=== PATIENT | male | born 1940 | race Caucasian/White ===

== ENCOUNTER 2017-02-07 12:06 | Emergency (ER) | payer MEDICARE, MEDICAID ==
[~2017-02-07] VITALS: Ht 177.8 cm; Wt 74.8 kg
[~2017-02-07 12:06] MED LIST: ARICEPT10 MG ORAL; ARICEPT10 MG PO; ASPIRIN81 M1 PO; ATIVAN0.5 MG PO; ATROVENT INH S2.5 ML HHN; BISACODYL5 MG PO; COLACE100 MG PO; FISH OIL OMEGA1 EACH PO; FLEET ENEMA133 ML RECTAL; FOSAMAX70 MG ORAL; FOSAMAX70 MG PO; LUMIGAN1 DROP OP; LUMIGAN2.5 ML BOTH EYES; METAMUCIL POWD283 GM PO; METAMUCIL1 EACH PO; MULTIVITAMINS1 EAC8 PO; NAMENDA10 MG PO; NORCO 7.5-3251 EACH PO; NORVASC5 MG PO; SENEXON-S TABL1 EACH ORAL; TUMS500 MG PO; TYLENOL325 MG PO; VIBRAMYCIN50 MG/5 M1 PO; VITAMIN C500 M1 PO; ZINC SULFATE220 MG PO
[2017-02-07 12:07] VITALS: BP 145/73
--- NOTE | 2017-02-07 13:20 | Emergency Room Report ---
History of Present Illness General Chief Complaint: Malfunctioning Gastric Tube Source: EMS Present Illness HPI The patient is a 76 yo M BIBA from SNF with Hx of Alzheimer dementia, encephalopathy, and cachexia among many other diagnoses presenting for G-tube replacement. The tube was found to be out this morning at approximately 10AM. Unsure of how it fell out per nursing staff. Size is 20fr. Pt unable to provide any information as he is nonverbal and A&Ox0 at baseline. ` Allergies: Coded Allergies: No Known Allergies (Verified , 09/26/12) Patient History Past Medical History: see triage record Pertinent Family History: none Reviewed Nursing Documentation: PMH: Agreed, PSxH: Agreed Nursing Documentation-PMH Past Medical History: No History, Except For Hx COPD: Yes - Dermatitis Hx Cancer: No History Of Psychiatric Problem: Yes - Anxiety Hx Dementia: Yes Hx Alzheimer's Disease: Yes Review of Systems All Other Systems: limited Physical Exam Vital Signs Date Time Temp Pulse Resp B/P Pulse Ox O2 Delivery O2 Flow Rate FiO2 02/07/17 12:00 98.4 92 16 145/73 94 Room Air Sp02 EP Interpretation: reviewed, normal General Appearance: no apparent distress, non-toxic, cachetic Head: normocephalic, atraumatic Eyes: bilateral eye PERRL ENT: hearing grossly normal, normal pharynx, no angioedema Neck: full range of motion, supple/symm/no masses Gastrointestinal: soft, no mass, other - gastrostomy patent. No bleeding or other DC. Neurologic: sensory intact Skin: warm/dry, well hydrated, normal turgor Medical Decision Making PA Attestation Dr. Gallardo is my supervising physician. Patient management was discussed with my supervising physician Diagnostic Impression: Primary Impression: Dislodged gastrostomy tube ER Course The patient is a 76-year-old male presenting for dislodged G-tube Differential diagnoses considered but not limited to: Cellulitis, perforation, G -tube malfunction, among others Physical exam: Afebrile. No apparent distress. Non-verbal Abdomen is soft. Nondistended. G-tube site has no erythema or discharge. The area was cleaned and prepped with Betadine and normal saline. Sterile gloves were worn as well as drapes used. A 20 [place] G-tube was placed easily. 20 mL of normal saline was used for inflation. The patient tolerated the procedure well. KUB shows G-tube placement was successful The patient will be discharged back to [facility] facility ER precautions given Other X-Ray Diagnostic Results Other X-Ray Diagnostic Results : X-Ray ordered: KUB # of Views/Limited Vs Complete: 1 View Indication: Other - G tube placement Interpretation: other - G tube placed successfully Impression: No acute disease Interpreting ER Provider: Dr. Sami SANCHEZ Scribe Text I am acting as scribe for my supervising physician. My supervising physician's interpretation of the KUB is that G tube placement was successful. Last Vital Signs Date Time Temp Pulse Resp B/P Pulse Ox O2 Delivery O2 Flow Rate FiO2 02/07/17 12:07 98.4 16 145/73 94 Room Air 02/07/17 12:00 92 Status: improved Disposition: XF SNF Condition: Stable KUSH CARBALLO Feb 07, 2017 13:19
[2017-02-07 15:50] VITALS: BP 141/74
[2017-02-07 15:51] VITALS: BP 145/73
--- NOTE | 2017-02-08 12:41 | Diagnostic Imaging Report ---
Indication: Gastrostomy injection Comparison: None Single view of the abdomen obtained after a gastrostomy injection with contrast material. Gastrostomy injection shows the balloon and the tip of the gastrostomy catheter within the stomach. Some contrast is spilled adjacent to the area of this abdominal wall. Impression: Gastrostomy good position. No leak
== END 2017-02-07 15:53 ==
LOC: EDBD 12:06 → EMR 13:23
DX: K94.29 Other complications of gastrostomy (principal); G30.9 Alzheimer's disease, unspecified; F02.80 Dementia in other diseases classified elsewhere, unspecified severity, without behavioral disturbance, psychotic disturbance, mood disturbance, and anxiety; F41.9 Anxiety disorder, unspecified
CPT/HCPCS: 43760; 74000

== ENCOUNTER 2017-03-22 17:18 | Inpatient (IN) | payer MEDICARE, MEDICAID ==
[~2017-03-22] VITALS: Ht 165.1 cm; Wt 78.9 kg
[~2017-03-22 17:18] MED LIST changes: +ARICEPT10 MG GT; -ARICEPT10 MG PO; +ASPIRIN81 M1 GT; -ASPIRIN81 M1 PO; +MULTIVITAMINS1 EAC8 GT; -MULTIVITAMINS1 EAC8 PO; +NAMENDA10 MG GT; -NAMENDA10 MG PO; +NORVASC5 MG GT; -NORVASC5 MG PO
[2017-03-22] MEDS ORDERED: Cefepime HCl 1 GM in NS 55 ML IV STA (17:28)
[2017-03-22 17:30] VITALS: BP 117/65
[2017-03-22] MEDS ORDERED: MILK OF MA400 MG/51 ORAL (17:30)
[2017-03-22] MEDS ORDERED: ENEMA133 M1 RC (17:30)
[2017-03-22] MEDS ORDERED: SENNA8.6 M2 GT (17:30)
[2017-03-22] MEDS ORDERED: VITAMIN C500 M1 GT (17:30)
[2017-03-22] MEDS ORDERED: ARTIFICIAL TEAR15 ML BOTH EYES ×2 (17:30→23:11)
[2017-03-22] MEDS ORDERED: HYDRALAZINE HCL10 MG ORAL (17:30)
[2017-03-22] MEDS ORDERED: LIPITOR40 MG GT (17:30)
[2017-03-22] MEDS ORDERED: HEPARIN SO5000 UNIT2 SUBQ ×2 (17:30→23:11)
[2017-03-22] MEDS ORDERED: Cefepime 1gm vial ONE (17:50)
[2017-03-22 18:14] LABS: MEAN CORPUSCULAR HEMOGLOBIN 31.3 PG (27.0-31.0); MEAN CORPUSCULAR HGB CONC 35.2 G/DL (32.0-36.0); MEAN CORPUSCULAR VOLUME 89 FL (80-99); MEAN PLATELET VOLUME 8.3 FL (6.5-10.1); PLATELET COUNT 253 K/UL (150-450); RED BLOOD COUNT 5.19 M/UL (4.70-6.10); RED CELL DISTRIBUTION WIDTH 15.3 % (11.6-14.8)
[2017-03-22 18:18] LABS: WHITE BLOOD COUNT 28.1 K/UL (4.8-10.8)
[2017-03-22 18:22] LABS: APPEARANCE,URINE SLIGHTLY CLOUDY; KETONES,URINE 1+ (NEGATIVE); LEUKOCYTE ESTERASE ,URINE 3+ (NEGATIVE); NITRITE,URINE POSITIVE (NEGATIVE); PH,URINE 8 (4.5-8.0); PROTEIN,URINE 3+ (NEGATIVE); UROBILINOGEN,URINE 4 MG/DL (0.0-1.0)
[2017-03-22 18:44] LABS: TROPONIN I < 0.30 ng/mL (<=0.30)
[2017-03-22 18:49] LABS: ALANINE AMINOTRANSFERASE 25 U/L (3-41); ALBUMIN/GLOBULIN RATIO 0.9 (1.0-2.7); ANION GAP 14 (5-15); ASPARTATE AMINO TRANSFERASE 22 U/L (5-40); CALCIUM 9.8 mg/dL (8.6-10.2); CARBON DIOXIDE 29 mEQ/L (20-30); CHLORIDE 96 mEQ/L (98-107); CREATININE 0.8 mg/dL (0.7-1.2); HEMOLYSIS 8; POTASSIUM 4.4 mEQ/L (3.4-4.9); SODIUM 139 mEQ/L (135-145); TOTAL PROTEIN 8.1 g/dL (6.6-8.7)
[2017-03-22 18:53] LABS: AMORPHOUS SEDIMENT,UR FEW /LPF; BACTERIA,URINE MODERATE /HPF; RBC,URINE 15-20 /HPF (0 - 0)
[2017-03-22 18:59] VITALS: BP 104/66
[2017-03-22 19:00] LABS: CKMB 1.9 ng/mL (< 6.7)
--- NOTE | 2017-03-22 19:01 | Emergency Room Report ---
History of Present Illness General Chief Complaint: Fever Source: Medical Record, EMS Present Illness HPI [id number] sent by PMD for concern for sepsis No other info from PMD, EMS, SNF Patient non-verbal EMR reviewed for additional information Allergies: Coded Allergies: No Known Allergies (Verified , 09/26/12) Patient History Past Medical History: see triage record, old chart reviewed Past Surgical History: unable to obtain Social History: Denies: smoking, alcohol use, drug use Immunizations: UTD Reviewed Nursing Documentation: PMH: Agreed, PSxH: Agreed Nursing Documentation-PMH Past Medical History Deferred: Patient Unconscious Past Medical History: No History, Except For Hx Cardiac Problems: Yes Hx Hypertension: Yes Hx COPD: Yes Hx Cancer: No Hx Neurological Problems: Yes Hx Dementia: Yes Hx Alzheimer's Disease: Yes Review of Systems All Other Systems: limited - Non verbal Physical Exam Vital Signs Date Time Temp Pulse Resp B/P (MAP) Pulse Ox O2 Delivery O2 Flow Rate FiO2 03/22/17 17:12 102.0 104 16 118/60 95 Nasal Cannula 2.0 Sp02 EP Interpretation: reviewed, normal General Appearance: normal inspection, well appearing, no apparent distress, alert, GCS 15, non-toxic Head: normocephalic, atraumatic Eyes: bilateral eye PERRL, bilateral eye EOMI ENT: normal ENT inspection, hearing grossly normal, normal pharynx, no angioedema Neck: normal inspection, full range of motion, supple, no bony tend Respiratory: normal inspection, lungs clear, normal breath sounds, no rhonchi, no respiratory distress, no retraction, no accessory muscle use, no wheezing, speaking full sentences Cardiovascular #1: regular rate, rhythm, no edema Gastrointestinal: normal inspection, normal bowel sounds, non tender, soft, no guarding, no hernia Genitourinary: no CVA tenderness, other - Lamar bag with thick urine Musculoskeletal: normal inspection, back normal, normal range of motion, Christopher' s Sign negative Neurologic: normal inspection, alert, responsive, processing technologist III-XII nml as tested, motor strength/tone normal, speech normal Psychiatric: normal inspection, judgement/insight normal, mood/affect normal Skin: normal inspection, normal color, no rash Medical Decision Making Medicare Attestation Amelia Lowe MD hereby attest that the medical record entry for date of service, 03/22/17 accurately reflects signatures/notations that I made in my capacity as MD when I treated/diagnosed the above listed Medicare beneficiary. I attest that this information is true, accurate and complete to the best of my knowledge. I understand that any falsification, omission, or concealment of material fact may subject me to administrative, civil, or criminal liability. This patient warrants hospital admission for extreme of age and has a condition that cannot be treated as outpatient. Diagnostic Impression: Primary Impression: Sepsis Qualified Codes: A41.9 - Sepsis, unspecified organism Additional Impression: UTI (urinary tract infection) Qualified Codes: N30.01 - Acute cystitis with hematuria ER Course VS with tachycardia, fever UA grossly infected Urosepsis Was given tylenol prior to arrival Empiric Abx given Blood, Urine Cx pending CXR negative for PNA - VS stable. No hypoxia. Endorsed to Dr Geiger for tele admit at 701pm EKG Diagnostic Results Rate: tachycardiac Rhythm: NSR ST Segments: no acute changes ASA given to the pt in ED: No Rhythm Strip Diag. Results EP Interpretation: yes Rate: 97 Rhythm: NSR, no PVC's, no ectopy Chest X-Ray Diagnostic Results Chest X-Ray Diagnostic Results : Chest X-Ray Ordered: Yes # of Views/Limited/Complete: 1 View Indication: Other - sepsis EP Interpretation: Yes Interpretation: no consolidation, no effusion, no pneumothorax, no acute cardiopulmonary disease Impression: No acute disease Interpreting ER Provider: Dr Matthew Lowe MD Last Vital Signs Date Time Temp Pulse Resp B/P (MAP) Pulse Ox O2 Delivery O2 Flow Rate FiO2 03/22/17 17:30 106 19 Nasal Cannula 2.0 03/22/17 17:30 99.2 117/65 95 Status: improved Disposition: ADMITTED INPATIENT Condition: Serious Referrals: Sary Oakes MD (PCP) MATTHEW LOWE M.D. Mar 22, 2017 19:01
[2017-03-22 19:08] LABS: ANISOCYTOSIS 1+; BAND NEUTROPHILS % (MANUAL) 3 % (0-8); BASOPHILS % (MANUAL) 0 % (0-2); EOSINOPHILS % (MANUAL) 2 % (0-3); LYMPHOCYTES % (MANUAL) 5 % (20-45); NEUTROPHILS % (MANUAL) 86 % (45-75); PLATELET ESTIMATE ADEQUATE; PLATELET MORPHOLOGY NORMAL; TOTAL CELLS COUNTED 100
[2017-03-22 21:40] VITALS: BP 148/85
[2017-03-22] MEDS ORDERED: Acetaminophen 650mg/20.3ml GT PRN (22:45)
[2017-03-22] MEDS ORDERED: MULTI-DELYN237 ML GT (23:11)
[2017-03-22] MEDS ORDERED: FLEET ENEMA133 ML RECTAL (23:11)
[2017-03-22] MEDS ORDERED: DULCOLAX10 MG RC (23:11)
[2017-03-22] MEDS ORDERED: VITAMIN C500 MG/11 GT (23:11)
[2017-03-22] MEDS ORDERED: TYLENOL650 MG/20. GT (23:11)
[2017-03-22] MEDS ORDERED: SENOKOT8.6 MG GT (23:11)
[2017-03-22] MEDS ORDERED: MILK OF MA400 MG/51 GT (23:11)
[2017-03-22] MEDS ORDERED: HydrALAZINE 10mg Tab GT PRN (23:15)
[2017-03-23] VITALS (51 sets, daily range): BP systolic 49–176; BP diastolic 26–141
[2017-03-23 04:45] LABS: ABG ALLEN TEST POSITIVE; ABG BASE EXCESS -5.4; ABG PCO2 29.5 mmHg (35.0-45.0)
[2017-03-23 05:14] LABS: MEAN CORPUSCULAR HEMOGLOBIN 30.3 PG (27.0-31.0); MEAN CORPUSCULAR HGB CONC 32.9 G/DL (32.0-36.0); MEAN CORPUSCULAR VOLUME 92 FL (80-99); MEAN PLATELET VOLUME 8.8 FL (6.5-10.1); PLATELET COUNT 166 K/UL (150-450); RED BLOOD COUNT 4.84 M/UL (4.70-6.10); RED CELL DISTRIBUTION WIDTH 15.6 % (11.6-14.8)
[2017-03-23 05:38] LABS: MAGNESIUM 2.1 mg/dL (1.7-2.5); PHOSPHORUS 3.6 mg/dL (2.5-4.8)
[2017-03-23 05:40] LABS: ALANINE AMINOTRANSFERASE 62 U/L (3-41); ALBUMIN/GLOBULIN RATIO 0.8 (1.0-2.7); ANION GAP 25 (5-15); ASPARTATE AMINO TRANSFERASE 69 U/L (5-40); CALCIUM 9.3 mg/dL (8.6-10.2); CARBON DIOXIDE 18 mEQ/L (20-30); CHLORIDE 99 mEQ/L (98-107); CREATININE 1.5 mg/dL (0.7-1.2); HEMOLYSIS 10; POTASSIUM 4.4 mEQ/L (3.4-4.9); SODIUM 142 mEQ/L (135-145); TOTAL PROTEIN 6.3 g/dL (6.6-8.7)
[2017-03-23 06:00] LABS: WHITE BLOOD COUNT 23.1 K/UL (4.8-10.8)
[2017-03-23] MEDS ORDERED: Heparin 5000 units/ml inj SUBQ SCH (06:00)
[2017-03-23] MEDS: Heparin 5000 units/ml inj SUBQ SCH ×3 (06:00→21:49)
[2017-03-23 06:29] LABS: BILIRUBIN,DIRECT 0.9 mg/dL (0.1-0.3)
[2017-03-23] MEDS ORDERED: Acetaminophen 650mg/20.3ml GT PRN (06:45)
[2017-03-23 07:58] LABS: BAND NEUTROPHILS % (MANUAL) 17 % (0-8); BASOPHILS % (MANUAL) 0 % (0-2); EOSINOPHILS % (MANUAL) 1 % (0-3); LYMPHOCYTES % (MANUAL) 1 % (20-45); METAMYELOCYTES % 2 % (0-0); MYELOCYTES % 1 % (0-0); NEUTROPHILS % (MANUAL) 78 % (45-75); PLATELET ESTIMATE ADEQUATE; TOTAL CELLS COUNTED 100
[2017-03-23 07:59] LABS: PLATELET MORPHOLOGY NORMAL
[2017-03-23 08:00] LABS: ANISOCYTOSIS 1+
--- NOTE | 2017-03-23 08:52 | Infectious Diseases Prog Note ---
Assessment/Plan Problems: (1) UTI (urinary tract infection) Assessment & Plan: will start cefepime empirically pending urine culture (2) Dislodged gastrostomy tube Assessment & Plan: recommend GI consult for replacement (3) Sepsis Assessment & Plan: will start cefepime and clindamycin empirically pending culture results (4) Dehydration Assessment & Plan: continue ivf , monitor UOP, and electrolytes Subjective Allergies: Coded Allergies: No Known Allergies (Verified , 09/26/12) Objective Vital Signs Last 24 Hour Vital Signs Date Time Temp Pulse Resp B/P (MAP) Pulse Ox O2 Delivery O2 Flow Rate FiO2 03/23/17 08:00 99.0 89 18 138/122 99 Non-Rebreather 100 03/23/17 07:12 99 Non-Rebreather 15.0 100 03/23/17 07:12 Non-Rebreather 15.0 100 03/23/17 07:00 97 19 94/72 100 Non-Rebreather 100 03/23/17 06:30 92 25 151/125 100 Non-Rebreather 100 03/23/17 06:00 93 25 128/98 98 Non-Rebreather 100 03/23/17 05:45 94 25 58/40 100 Non-Rebreather 100 03/23/17 05:30 95 25 99/47 99 Non-Rebreather 100 03/23/17 05:00 97.9 102 25 152/99 91 Non-Rebreather 100 03/23/17 04:20 89 24 49/28 Non-Rebreather 15.0 87 03/23/17 04:15 97.0 98 24 60/35 Non-Rebreather 15.0 97 03/23/17 04:10 97.0 88 24 75/40 Nasal Cannula 2.0 86 03/23/17 04:00 97.0 98 24 56/36 Nasal Cannula 2.0 91 03/23/17 04:00 93 03/23/17 00:02 120 145/80 03/23/17 00:00 122 03/23/17 00:00 98.1 101 24 121/93 Nasal Cannula 2.0 03/22/17 21:40 97.8 112 20 148/85 97 Nasal Cannula 2.0 03/22/17 18:59 89 15 104/66 96 Nasal Cannula 2.0 8/28/17 17:30 106 19 Nasal Cannula 2.0 03/22/17 17:30 99.2 106 19 117/65 95 Nasal Cannula 2.0 03/22/17 17:12 102.0 104 16 118/60 95 Nasal Cannula 2.0 Height (Feet): 5 Height (Inches): 5.00 Weight (Pounds): 149 Microbiology Date/Time Source Procedure Growth Status 03/22/17 17:42 Urine,Clean Catch Urine Culture - Preliminary Gram Negative Bacillus 1 Resulted Laboratory Tests Test 03/22/17 17:42 03/23/17 04:35 03/23/17 04:50 White Blood Count 28.1 K/UL (4.8-10.8) *H 23.1 K/UL (4.8-10.8) *H Red Blood Count 5.19 M/UL (4.70-6.10) 4.84 M/UL (4.70-6.10) Hemoglobin 16.2 G/DL (14.2-18.0) 14.7 G/DL (14.2-18.0) Hematocrit 46.2 % (42.0-52.0) 44.6 % (42.0-52.0) Mean Corpuscular Volume 89 FL (80-99) 92 FL (80-99) Mean Corpuscular Hemoglobin 31.3 PG (27.0-31.0) H 30.3 PG (27.0-31.0) Mean Corpuscular Hemoglobin Concent 35.2 G/DL (32.0-36.0) 32.9 G/DL (32.0-36.0) Red Cell Distribution Width 15.3 % (11.6-14.8) H 15.6 % (11.6-14.8) H Platelet Count 253 K/UL (150-450) 166 K/UL (150-450) Mean Platelet Volume 8.3 FL (6.5-10.1) 8.8 FL (6.5-10.1) Neutrophils (%) (Auto) % (45.0-75.0) % (45.0-75.0) Lymphocytes (%) (Auto) % (20.0-45.0) % (20.0-45.0) Monocytes (%) (Auto) % (1.0-10.0) % (1.0-10.0) Eosinophils (%) (Auto) % (0.0-3.0) % (0.0-3.0) Basophils (%) (Auto) % (0.0-2.0) % (0.0-2.0) Differential Total Cells Counted 100 100 Neutrophils % (Manual) 86 % (45-75) H 78 % (45-75) H Lymphocytes % (Manual) 5 % (20-45) L 1 % (20-45) L Monocytes % (Manual) 4 % (1-10) 0 % (1-10) L Eosinophils % (Manual) 2 % (0-3) 1 % (0-3) Basophils % (Manual) 0 % (0-2) 0 % (0-2) Band Neutrophils 3 % (0-8) 17 % (0-8) H Platelet Estimate Adequate Adequate Platelet Morphology Normal Normal Anisocytosis 1+ 1+ Urine Color Brown Urine Appearance Slightly cloudy Urine pH 8 (4.5-8.0) Urine Specific [place] 1.010 (1.005-1.035) Urine Protein 3+ (NEGATIVE) H Urine Glucose (UA) Negative (NEGATIVE) Urine Ketones 1+ (NEGATIVE) H Urine Occult Blood 5+ (NEGATIVE) H Urine Nitrite Positive (NEGATIVE) H Urine Bilirubin Negative (NEGATIVE) Urine Urobilinogen 4 MG/DL (0.0-1.0) H Urine Leukocyte Esterase 3+ (NEGATIVE) H Urine RBC 15-20 /HPF (0 - 0) H Urine WBC 5-10 /HPF (0 - 0) H Urine Squamous Epithelial Cells None /LPF (NONE/OCC) Urine Amorphous Sediment Few /LPF (NONE) H Urine Bacteria Moderate /HPF (NONE) H Sodium Level 139 mEQ/L (135-145) 142 mEQ/L (135-145) Potassium Level 4.4 mEQ/L (3.4-4.9) 4.4 mEQ/L (3.4-4.9) Chloride Level 96 mEQ/L (98-107) L 99 mEQ/L (98-107) Carbon Dioxide Level 29 mEQ/L (20-30) 18 mEQ/L (20-30) L Anion Gap 14 (5-15) 25 (5-15) H Blood Urea Nitrogen 32 mg/dL (7-23) H 44 mg/dL (7-23) H Creatinine 0.8 mg/dL (0.7-1.2) 1.5 mg/dL (0.7-1.2) #H Estimat Glomerular Filtration Rate mL/min (>60) mL/min (>60) Glucose Level 196 mg/dL (74-106) H 136 mg/dL (74-106) H Lactic Acid Level 1.90 mmol/L (0.66-2.22) Calcium Level 9.8 mg/dL (8.6-10.2) 9.3 mg/dL (8.6-10.2) Total Bilirubin 0.8 mg/dL (0.0-1.2) 1.5 mg/dL (0.0-1.2) H Aspartate Amino Transf (AST/SGOT) 22 U/L (5-40) 69 U/L (5-40) H Alanine Aminotransferase (ALT/SGPT) 25 U/L (3-41) 62 U/L (3-41) H Alkaline Phosphatase 92 U/L (40-129) 138 U/L (40-129) H Total Creatine Kinase 45 U/L (38-174) Creatine Kinase MB 1.9 ng/mL (< 6.7) Creatine Kinase MB Relative Index 4.2 Troponin I < 0.30 ng/mL (<=0.30) Total Protein 8.1 g/dL (6.6-8.7) 6.3 g/dL (6.6-8.7) L Albumin 4.0 g/dL (3.5-5.2) 2.9 g/dL (3.5-5.2) L Globulin 4.1 g/dL 3.4 g/dL Albumin/Globulin Ratio 0.9 (1.0-2.7) L 0.8 (1.0-2.7) L Arterial Blood pH 7.402 (7.350-7.450) Arterial Blood Partial Pressure CO2 29.5 mmHg (35.0-45.0) L Arterial Blood Partial Pressure O2 87.8 mmHg (75.0-100.0) Arterial Blood HCO3 17.9 mmol/L (22.0-26.0) L Arterial Blood Oxygen Saturation 96.5 % (92.0-98.0) Arterial Blood Base Excess -5.4 Myron Test Positive Metamyelocytes % 2 % (0-0) H Myelocytes % 1 % (0-0) H Phosphorus Level 3.6 mg/dL (2.5-4.8) Magnesium Level 2.1 mg/dL (1.7-2.5) Direct Bilirubin 0.9 mg/dL (0.1-0.3) H Current Medications Medications (Trade) Dose Ordered Sig/Matt Route PRN Reason Start Time Stop Time Status Last Admin Dose Admin Acetaminophen (Tylenol) 650 mg Q4H PRN GT Mild Pain/Temp > 100.5 03/23/17 06:45 04/21/17 22:44 Aspirin (ASA) 81 mg DAILY GT 03/23/17 09:00 04/22/17 08:59 Atorvastatin Calcium (Lipitor) 40 mg DAILY GT 03/23/17 09:00 04/22/17 08:59 Clonidine HCl (Catapres) 0.1 mg Q4H PRN ORAL For High Blood Pressure 03/23/17 07:00 04/22/17 06:59 Heparin Sodium (Porcine) (Heparin 5000 units/ml) 5,000 units EVERY 8 HOURS SUBQ 03/23/17 06:00 04/22/17 05:59 Memantine (Namenda) 10 mg DAILY GT 03/23/17 09:00 04/22/17 08:59 Jose Juarez M.D. Mar 23, 2017 08:52
[2017-03-23] MEDS: Aspirin Baby 81mg GT SCH (09:00)
[2017-03-23] MEDS ORDERED: Memantine 10mg tab GT SCH ×2 (09:00)
[2017-03-23] MEDS ORDERED: Aspirin Baby 81mg GT SCH (09:00)
[2017-03-23 09:53] LABS: REFLEX LACTIC ACID YES OR NO YES
[2017-03-23] MEDS ORDERED: Morphine Sulfate 2mg/ml Inj IVP PRN (10:15)
[2017-03-23] MEDS ORDERED: Miralax 17gm pkt ORAL PRN (10:15)
[2017-03-23] MEDS ORDERED: LORazepam Inj 2mg/ml 1ml IV PRN (10:15)
--- NOTE | 2017-03-23 10:17 | Pulmonolgy Critical Care Note ---
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 - Objective Last 24 Hour Vital Signs Date Time Temp Pulse Resp B/P (MAP) Pulse Ox O2 Delivery O2 Flow Rate FiO2 03/23/17 08:00 99.0 89 18 138/122 99 Non-Rebreather 100 03/23/17 07:12 99 Non-Rebreather 15.0 100 03/23/17 07:12 Non-Rebreather 15.0 100 03/23/17 07:00 97 19 94/72 100 Non-Rebreather 100 03/23/17 06:30 92 25 151/125 100 Non-Rebreather 100 03/23/17 06:00 93 25 128/98 98 Non-Rebreather 100 03/23/17 05:45 94 25 58/40 100 Non-Rebreather 100 03/23/17 05:30 95 25 99/47 99 Non-Rebreather 100 03/23/17 05:00 97.9 102 25 152/99 91 Non-Rebreather 100 03/23/17 04:20 89 24 49/28 Non-Rebreather 15.0 87 03/23/17 04:15 97.0 98 24 60/35 Non-Rebreather 15.0 97 03/23/17 04:10 97.0 88 24 75/40 Nasal Cannula 2.0 86 03/23/17 04:00 97.0 98 24 56/36 Nasal Cannula 2.0 91 03/23/17 04:00 93 03/23/17 00:02 120 145/80 03/23/17 00:00 122 03/23/17 00:00 98.1 101 24 121/93 Nasal Cannula 2.0 03/22/17 21:40 97.8 112 20 148/85 97 Nasal Cannula 2.0 03/22/17 18:59 89 15 104/66 96 Nasal Cannula 2.0 03/22/17 17:30 106 19 Nasal Cannula 2.0 03/22/17 17:30 99.2 106 19 117/65 95 Nasal Cannula 2.0 03/22/17 17:12 102.0 104 16 118/60 95 Nasal Cannula 2.0 Status: somnolent Condition: critical HEENT: atraumatic Neck: full ROM Lungs: clear Heart: HR/BP stable Abdomen: soft, non-tender, active bowel sounds Extremities: no C/C/E, edema Decubiti: stage Micro: Microbiology Date/Time Source Procedure Growth Status 03/22/17 17:42 Urine,Clean Catch Urine Culture - Preliminary Gram Negative Bacillus 1 Resulted Accucheck: 166 Critical Care - Subjective ROS Limited/Unobtainable: Yes ICU Day: 1 Interval Events: pt just admitted to telemetry for sepsis, became hypotensive and transferred to ICU. Currently he is somnolent on 100% NRM. looks comfortable Condition: critical EKG Rhythm: Sinus Rhythm FI02: 100 Fluids: kvo I&O: Intake and Output 03/23/17 03/24/17 19:00 07:00 Intake Total 20 ml Output Total 0 ml Balance 20 ml Intake Free Water 20 ml Output Urine Total 0 ml CXR: low volume Labs: Laboratory Tests Test 03/22/17 17:42 03/23/17 04:35 03/23/17 04:50 03/23/17 09:10 White Blood Count 28.1 K/UL (4.8-10.8) *H 23.1 K/UL (4.8-10.8) *H Red Blood Count 5.19 M/UL (4.70-6.10) 4.84 M/UL (4.70-6.10) Hemoglobin 16.2 G/DL (14.2-18.0) 14.7 G/DL (14.2-18.0) Hematocrit 46.2 % (42.0-52.0) 44.6 % (42.0-52.0) Mean Corpuscular Volume 89 FL (80-99) 92 FL (80-99) Mean Corpuscular Hemoglobin 31.3 PG (27.0-31.0) H 30.3 PG (27.0-31.0) Mean Corpuscular Hemoglobin Concent 35.2 G/DL (32.0-36.0) 32.9 G/DL (32.0-36.0) Red Cell Distribution Width 15.3 % (11.6-14.8) H 15.6 % (11.6-14.8) H Platelet Count 253 K/UL (150-450) 166 K/UL (150-450) Mean Platelet Volume 8.3 FL (6.5-10.1) 8.8 FL (6.5-10.1) Neutrophils (%) (Auto) % (45.0-75.0) % (45.0-75.0) Lymphocytes (%) (Auto) % (20.0-45.0) % (20.0-45.0) Monocytes (%) (Auto) % (1.0-10.0) % (1.0-10.0) Eosinophils (%) (Auto) % (0.0-3.0) % (0.0-3.0) Basophils (%) (Auto) % (0.0-2.0) % (0.0-2.0) Differential Total Cells Counted 100 100 Neutrophils % (Manual) 86 % (45-75) H 78 % (45-75) H Lymphocytes % (Manual) 5 % (20-45) L 1 % (20-45) L Monocytes % (Manual) 4 % (1-10) 0 % (1-10) L Eosinophils % (Manual) 2 % (0-3) 1 % (0-3) Basophils % (Manual) 0 % (0-2) 0 % (0-2) Band Neutrophils 3 % (0-8) 17 % (0-8) H Other Cell Type Platelet Estimate Adequate Adequate Platelet Morphology Normal Normal Anisocytosis 1+ 1+ Urine Color Brown Urine Appearance Slightly cloudy Urine pH 8 (4.5-8.0) Urine Specific [place] 1.010 (1.005-1.035) Urine Protein 3+ (NEGATIVE) H Urine Glucose (UA) Negative (NEGATIVE) Urine Ketones 1+ (NEGATIVE) H Urine Occult Blood 5+ (NEGATIVE) H Urine Nitrite Positive (NEGATIVE) H Urine Bilirubin Negative (NEGATIVE) Urine Urobilinogen 4 MG/DL (0.0-1.0) H Urine Leukocyte Esterase 3+ (NEGATIVE) H Urine RBC 15-20 /HPF (0 - 0) H Urine WBC 5-10 /HPF (0 - 0) H Urine Squamous Epithelial Cells None /LPF (NONE/OCC) Urine Amorphous Sediment Few /LPF (NONE) H Urine Bacteria Moderate /HPF (NONE) H Sodium Level 139 mEQ/L (135-145) 142 mEQ/L (135-145) Potassium Level 4.4 mEQ/L (3.4-4.9) 4.4 mEQ/L (3.4-4.9) Chloride Level 96 mEQ/L (98-107) L 99 mEQ/L (98-107) Carbon Dioxide Level 29 mEQ/L (20-30) 18 mEQ/L (20-30) L Anion Gap 14 (5-15) 25 (5-15) H Blood Urea Nitrogen 32 mg/dL (7-23) H 44 mg/dL (7-23) H Creatinine 0.8 mg/dL (0.7-1.2) 1.5 mg/dL (0.7-1.2) #H Estimat Glomerular Filtration Rate mL/min (>60) mL/min (>60) Glucose Level 196 mg/dL (74-106) H 136 mg/dL (74-106) H Lactic Acid Level 1.90 mmol/L (0.66-2.22) 8.60 mmol/L (0.66-2.22) H Calcium Level 9.8 mg/dL (8.6-10.2) 9.3 mg/dL (8.6-10.2) Total Bilirubin 0.8 mg/dL (0.0-1.2) 1.5 mg/dL (0.0-1.2) H Aspartate Amino Transf (AST/SGOT) 22 U/L (5-40) 69 U/L (5-40) H Alanine Aminotransferase (ALT/SGPT) 25 U/L (3-41) 62 U/L (3-41) H Alkaline Phosphatase 92 U/L (40-129) 138 U/L (40-129) H Total Creatine Kinase 45 U/L (38-174) Pending Creatine Kinase MB 1.9 ng/mL (< 6.7) Creatine Kinase MB Relative Index 4.2 Troponin I < 0.30 ng/mL (<=0.30) Total Protein 8.1 g/dL (6.6-8.7) 6.3 g/dL (6.6-8.7) L Albumin 4.0 g/dL (3.5-5.2) 2.9 g/dL (3.5-5.2) L Globulin 4.1 g/dL 3.4 g/dL Albumin/Globulin Ratio 0.9 (1.0-2.7) L 0.8 (1.0-2.7) L Arterial Blood pH 7.402 (7.350-7.450) Arterial Blood Partial Pressure CO2 29.5 mmHg (35.0-45.0) L Arterial Blood Partial Pressure O2 87.8 mmHg (75.0-100.0) Arterial Blood HCO3 17.9 mmol/L (22.0-26.0) L Arterial Blood Oxygen Saturation 96.5 % (92.0-98.0) Arterial Blood Base Excess -5.4 Myron Test Positive Metamyelocytes % 2 % (0-0) H Myelocytes % 1 % (0-0) H Uric Acid Pending Phosphorus Level 3.6 mg/dL (2.5-4.8) Magnesium Level 2.1 mg/dL (1.7-2.5) Direct Bilirubin 0.9 mg/dL (0.1-0.3) H VERITO QUEZADA Mar 23, 2017 10:17
--- NOTE | 2017-03-23 10:21 | Diagnostic Imaging Report ---
Indication: Dyspnea Comparison: 03/22/17 A single view chest radiograph was obtained. Findings: There is mild basilar atelectasis. Heart is normal. Bones are osteopenic. Impression: Mild basilar atelectasis
[2017-03-23 10:27] LABS: URIC ACID 5.7 mg/dL (3.0-7.5)
[2017-03-23] MEDS ORDERED: Sterile Water Irrig 1000ml IRRIG ONE ×2 (11:08→15:57)
[2017-03-23] MEDS ORDERED: HydrALAZINE 10mg Tab GT PRN (11:15)
[2017-03-23] MEDS: Clindamycin 600mg 50 ML IV SCH ×2 (11:21→18:04)
[2017-03-23] MEDS: Cefepime HCl 2 GM in D5W 110 ML IVPB SCH ×2 (11:22→23:10)
--- NOTE | 2017-03-23 11:39 | Diagnostic Imaging Report ---
APPROVED REPORT CPT Code: 36802 Present Symptoms Shortness of breath BILATERAL: Imaging reveals a patent deep venous system bilaterally. There is no evidence of thrombus within the femoral, popliteal or tibial segments. The greater saphenous veins are also within normal limits. Doppler indicates normal spontaneous flow within these segments.
--- NOTE | 2017-03-23 11:57 | Diagnostic Imaging Report ---
Indication: Dyspnea Comparison: 12/13/15 A single view chest radiograph was obtained. Findings: There is basilar scarring versus atelectasis. Pneumonia is not excluded but findings appear relatively stable. Heart size is normal. Bones are osteopenic. Impression: Mild basal scarring versus atelectasis
--- NOTE | 2017-03-23 12:17 | Wound Care Consultation ---
Wound Assessment Wound Assessment #1: Wound Number: 1 Wound Present on Admission: Yes New Wound: No Status Change of Wound: No Wound Location Body Site Modif: left Wound Location Body Site: heel Wound Type: pressure ulcer Bruce Test: Does not Bruce Pressure Ulcer Stage: IV/unstageable Wound Thickness: Full Thickness Wound Length: 1.5 Wound Width: 2.5 Wound Depth: utd Percent of Wound Bed Yellow/Wh: 60 Percent of Wound Purple/Maroon: 40 Wound Drainage Description: Serosanguineous Wound Drainage Amount: Scant Wound Drainage Odor: None/Absent Tissue Surrounding Wound: Macerated Wound General Appearance: Reddened, Draining Wound Assessment #2: Wound Number: 2 Wound Present on Admission: Yes New Wound: No Status Change of Wound: No Wound Location Body Site Modif: mid Wound Location Body Site: sacral Wound Type: pressure ulcer Bruce Test: Does not Bruce Pressure Ulcer Stage: III - scattered Wound Thickness: Full Thickness Wound Length: 4.5 Wound Width: 3.0 Wound Depth: 0.2 Percent of Wound [place]/Red: 100 Wound Drainage Description: Serosanguineous Wound Drainage Amount: Scant Wound Drainage Odor: None/Absent Tissue Surrounding Wound: Macerated Wound General Appearance: Reddened, Draining Wound Assessment #3: Wound Number: 3 Wound Present on Admission: Yes New Wound: No Status Change of Wound: No Wound Location Body Site Modif: right, lateral Wound Location Body Site: malleolus/ankle Wound Type: pressure ulcer Bruce Test: Does not Bruce Pressure Ulcer Stage: deep tissue injury Wound Thickness: Full Thickness Wound Length: 4.0 Wound Width: 2.5 Wound Depth: utd Percent of Wound Purple/Maroon: 100 Wound Drainage Amount: None Wound Drainage Odor: None/Absent Tissue Surrounding Wound: Intact Wound General Appearance: Reddened - purple Wound Assessment #4: Wound Number: 4 Wound Present on Admission: Yes New Wound: No Status Change of Wound: No Wound Location Body Site Modif: right Wound Location Body Site: heel Wound Type: pressure ulcer Bruce Test: Does not Bruce Pressure Ulcer Stage: deep tissue injury Wound Thickness: Full Thickness Wound Length: 4.0 Wound Width: 4.0 Wound Depth: utd Percent of Wound Purple/Maroon: 100 Wound Drainage Amount: None Wound Drainage Odor: None/Absent Tissue Surrounding Wound: Intact Wound Comment #1 Left heel unstageable pressure ulcer #2 Sacral scattered stage III pressure ulcer #3 Right lateral malleolus DTI pressure ulcer #4 Right heel DTI pressure ulcer Recommendation -Local wound care per protocol -Keep clean and dry -Turn and reposition -Optimize nutrition -Offload both heels -Low air loss mattress -Heel protector on both heels -Assess and f/u accordingly for any changes ROLANDO CLIFFORD RN Mar 23, 2017 12:17
--- NOTE | 2017-03-23 12:26 | Consultation ---
History of Present Illness General Date patient seen: Mar 23, 2017 Time patient seen: 12:21 Chief Complaint: Fever Referring physician: darren Reason for Consultation: hematuria Present Illness HPI 76 yo male from [facility], minimal history, non responsive or communicative. Patient tx'd with mary. Late last night noted hematuria. Here for dislodged G-tube and patient was hypotensive overnight. Allergies: Coded Allergies: No Known Allergies (Verified , 09/26/12) Medication History Scheduled Amlodipine Besylate (Norvasc), 5 MG GT DAILY, (Reported) Aspirin (Aspirin), 81 MG GT DAILY, (Reported) Atorvastatin Calcium* (Lipitor*), 40 MG GT DAILY, (Reported) Dextran 70/Hypromellose (Artificial Tears Eye Drops*), 1 DROP BOTH EYES DAILY, ( Reported) Donepezil Hcl* (Aricept*), 10 MG GT HS, (Reported) Heparin Sod (Porcine) (Heparin Sodium*), 5,000 UNITS SUBQ EVERY 8 HOURS, ( Reported) Memantine Hcl* (Namenda*), 10 MG GT DAILY, (Reported) Multivitamin Liquid* (Multi-Delyn*), 15 ML GT DAILY, (Reported) Sennosides (Senokot), 17.2 MG GT DAILY, (Reported) Vit C/Ascorbate Ca/Ascorb Sod (Vitamin C 500 Mg/15 Ml Liquid), 500 MG GT DAILY, (Reported) Scheduled PRN Acetaminophen (Acetaminophen), 650 MG GT Q6H PRN for Fever/Headache/Mild Pain, ( Reported) Bisacodyl (Dulcolax), 10 MG RC DAILY PRN for Constipation, (Reported) Hydralazine Hcl* (Hydralazine Hcl*), 10 MG ORAL EVERY 6 HOURS PRN for For High Blood Pressure, (Reported) Magnesium Hydroxide* (Milk Of Magnesia*), 30 ML GT DAILY PRN for Constipation, ( Reported) Na Phos,M-B/Na Phos,Di-Ba* (Fleet Enema*), 133 ML RECTAL DAILY PRN for Constipation, (Reported) Discontinued Medications Acetaminophen (Tylenol), 325 MG PO DAILY, (Reported) Discontinued Reason: Medication dose changed Alendronate Sodium* (Fosamax*), 70 MG ORAL ONCE A WEEK, (Reported) Discontinued Reason: Pt stopped taking med Ascorbic Acid* (Vitamin C*), 500 MG PO BID, (Reported) Discontinued Reason: Medication dose changed Ascorbic Acid* (Vitamin C*), 500 MG GT DAILY, (Reported) Discontinued Reason: Medication dose changed Bimatoprost (Lumigan), 1 DROP BOTH EYES DAILY, (Reported) Discontinued Reason: Pt stopped taking med Bisacodyl* (Dulcolax*), 10 MG PO DAILY, (Reported) Discontinued Reason: Medication dose changed Calcium Carbonate (Calcium), 500 MG PO BID, (Reported) Discontinued Reason: Pt stopped taking med Dextran 70/Hypromellose (Artificial Tears Eye Drops*), 1 DROP BOTH EYES, ( Reported) Discontinued Reason: Medication dose changed Docusate Sodium* (Colace*), 100 MG PO DAILY, (Reported) Discontinued Reason: Pt stopped taking med Donepezil Hcl* (Aricept*), 10 MG ORAL BEDTIME, (Reported) Discontinued Reason: Medication dose changed Doxycycline Calcium (Vibramycin), 100 MG PO BID, (Reported) Discontinued Reason: Pt stopped taking med Heparin Sod (Porcine) (Heparin Sodium*), Unknown Dose SUBQ EVERY 12 HOURS, ( Reported) Discontinued Reason: Medication dose changed Hydrocodone Bit/Acetaminophen 7.5-325* ([place] 7.5-325*), 1 TAB PO Q4H PRN, ( Reported) Discontinued Reason: Pt stopped taking med Ipratropium [place] (Atrovent Inh Soln), 2.5 ML HHN Q4HR PRN, (Reported) Discontinued Reason: Pt stopped taking med Lorazepam* (Ativan*), 0.5 MG PO Q6HR PRN, (Reported) Discontinued Reason: Pt stopped taking med Magnesium Hydroxide* (Milk Of Magnesia*), 30 ML ORAL DAILY PRN for Constipation, (Reported) Discontinued Reason: Medication dose changed Multivitamin With Minerals (Multivitamins With Minerals*), 1 EACH GT DAILY, ( Reported) Discontinued Reason: Medication dose changed Na Phos,M-B/Na Phos,Di-Ba (Enema), 133 ML RC for Constipation, (Reported) Discontinued Reason: Pt stopped taking med Na Phos,M-B/Na Phos,Di-Ba* (Fleet Enema*), 133 ML RECTAL DAILY PRN for Constipation, (Reported) Discontinued Reason: Pt stopped taking med Jackman-3/Dha/Epa/Fish Oil (Fish Oil Jackman-3 Softgel), 1 EACH PO DAILY, (Reported) Discontinued Reason: Pt stopped taking med Psyllium Seed/Aspartame (Metamucil Powder), GM PO DAILY, (Reported) Discontinued Reason: Pt stopped taking med Sennosides (Senna), 8.6 MG GT BID, (Reported) Discontinued Reason: Medication dose changed Sennosides/Docusate Sodium* ([place]-S Tablet*), 2 TAB ORAL DAILY, (Reported) Discontinued Reason: Medication dose changed Zinc Sulfate (Zinc Sulfate), 220 MG PO DAILY, (Reported) Discontinued Reason: Therapy completed Patient History Limited by: medical condition History Provided By: Medical Record Healthcare decision maker Resuscitation status Full Code Advanced Directive on File Past Medical/Surgical History Past Medical/Surgical History: (1) Dislodged gastrostomy tube (2) UTI (urinary tract infection) (3) Dysphagia (4) Seizure (5) Dementia Review of Systems Constitutional: Denies: no symptoms, see HPI, chills, sweats, fever, malaise, weakness, other Eye: Denies: no symptoms, see HPI, eye pain, blurred vision, tearing, double vision, nose pain, nose congestion, acuity changes, discharge, other ENT: Denies: no symptoms, see HPI, ear pain, ear discharge, nose pain, nose congestion, throat pain, throat swelling, mouth pain, hearing loss, nasal discharge, other Respiratory: Denies: no symptoms, see HPI, cough, orthopnea, shortness of breath, stridor, wheezing, ARZOLA, sputum, other Cardiovascular: Denies: no symptoms, see HPI, chest pain, edema, palpitations, syncope, PND, other Gastrointestinal: Denies: no symptoms, see HPI, abdominal pain, constipation, diarrhea, nausea, vomiting, melena, hematemesis, other Genitourinary: Denies: no symptoms, see HPI, discharge, dysuria, frequency, hematuria, pain, retention, incontinence, urgency, vag bleed/dc, other Musculoskeletal: Denies: no symptoms, see HPI, back pain, gout, joint pain, joint swelling, muscle pain, muscle stiffness, other Skin: Denies: no symptoms, see HPI, rash, change in color, change in hair/nails , dryness, lesions, other Psychiatric: Denies: no symptoms, see HPI, prior hx, anxiety, depressed feelings, emotional problems, SI, HI, hallucinations, other Neurological: Denies: no symptoms, see HPI, headache, numbness, paresthesia, seizure, tingling, tremors, focal weakness, syncope, dizziness, other Endocrine: Denies: no symptoms, see HPI, excessive sweating, flushing, intolerance to temperature, increased thirst, increased urine, unexplained weight loss, other Hematologic/Lymphatic: Denies: no symptoms, see HPI, anemia, blood clots, easy bleeding, easy bruising, swollen glands, diathesis, other Physical Exam General Appearance: no apparent distress Abdomen: soft Genitourinary/Rectal: mary Last 24 Hour Vital Signs Date Time Temp Pulse Resp B/P (MAP) Pulse Ox O2 Delivery O2 Flow Rate FiO2 03/23/17 11:30 94 30 80/42 98 Non-Rebreather 100 03/23/17 11:00 94 30 107/72 97 Non-Rebreather 100 03/23/17 10:30 95 30 86/72 96 Non-Rebreather 100 03/23/17 10:00 91 29 92/73 96 Non-Rebreather 100 03/23/17 09:30 89 29 75/63 98 Non-Rebreather 100 03/23/17 09:00 90 27 80/45 99 Non-Rebreather 100 03/23/17 08:30 88 23 79/44 99 Non-Rebreather 100 03/23/17 08:00 99.0 89 18 138/122 99 Non-Rebreather 100 03/23/17 08:00 89 03/23/17 07:30 91 29 135/117 97 Non-Rebreather 100 03/23/17 07:12 99 Non-Rebreather 15.0 100 03/23/17 07:12 Non-Rebreather 15.0 100 03/23/17 07:00 97 19 94/72 100 Non-Rebreather 100 03/23/17 06:30 92 25 151/125 100 Non-Rebreather 100 03/23/17 06:00 93 25 128/98 98 Non-Rebreather 100 03/23/17 05:45 94 25 58/40 100 Non-Rebreather 100 03/23/17 05:30 95 25 99/47 99 Non-Rebreather 100 03/23/17 05:00 97.9 102 25 152/99 91 Non-Rebreather 100 03/23/17 04:20 89 24 49/28 Non-Rebreather 15.0 87 03/23/17 04:15 97.0 98 24 60/35 Non-Rebreather 15.0 97 03/23/17 04:10 97.0 88 24 75/40 Nasal Cannula 2.0 86 03/23/17 04:00 97.0 98 24 56/36 Nasal Cannula 2.0 91 03/23/17 04:00 93 03/23/17 00:02 120 145/80 03/23/17 00:00 122 03/23/17 00:00 98.1 101 24 121/93 Nasal Cannula 2.0 03/22/17 21:40 97.8 112 20 148/85 97 Nasal Cannula 2.0 03/22/17 18:59 89 15 104/66 96 Nasal Cannula 2.0 03/22/17 17:30 106 19 Nasal Cannula 2.0 03/22/17 17:30 99.2 106 19 117/65 95 Nasal Cannula 2.0 03/22/17 17:12 102.0 104 16 118/60 95 Nasal Cannula 2.0 Intake and Output 03/23/17 03/24/17 19:00 07:00 Intake Total 20 ml Output Total 70 ml Balance -50 ml Intake Free Water 20 ml Output Urine Total 70 ml Laboratory Tests Test 03/22/17 17:42 03/23/17 04:35 03/23/17 04:50 03/23/17 09:10 White Blood Count 28.1 K/UL (4.8-10.8) *H 23.1 K/UL (4.8-10.8) *H Red Blood Count 5.19 M/UL (4.70-6.10) 4.84 M/UL (4.70-6.10) Hemoglobin 16.2 G/DL (14.2-18.0) 14.7 G/DL (14.2-18.0) Hematocrit 46.2 % (42.0-52.0) 44.6 % (42.0-52.0) Mean Corpuscular Volume 89 FL (80-99) 92 FL (80-99) Mean Corpuscular Hemoglobin 31.3 PG (27.0-31.0) H 30.3 PG (27.0-31.0) Mean Corpuscular Hemoglobin Concent 35.2 G/DL (32.0-36.0) 32.9 G/DL (32.0-36.0) Red Cell Distribution Width 15.3 % (11.6-14.8) H 15.6 % (11.6-14.8) H Platelet Count 253 K/UL (150-450) 166 K/UL (150-450) Mean Platelet Volume 8.3 FL (6.5-10.1) 8.8 FL (6.5-10.1) Neutrophils (%) (Auto) % (45.0-75.0) % (45.0-75.0) Lymphocytes (%) (Auto) % (20.0-45.0) % (20.0-45.0) Monocytes (%) (Auto) % (1.0-10.0) % (1.0-10.0) Eosinophils (%) (Auto) % (0.0-3.0) % (0.0-3.0) Basophils (%) (Auto) % (0.0-2.0) % (0.0-2.0) Differential Total Cells Counted 100 100 Neutrophils % (Manual) 86 % (45-75) H 78 % (45-75) H Lymphocytes % (Manual) 5 % (20-45) L 1 % (20-45) L Monocytes % (Manual) 4 % (1-10) 0 % (1-10) L Eosinophils % (Manual) 2 % (0-3) 1 % (0-3) Basophils % (Manual) 0 % (0-2) 0 % (0-2) Band Neutrophils 3 % (0-8) 17 % (0-8) H Other Cell Type Platelet Estimate Adequate Adequate Platelet Morphology Normal Normal Anisocytosis 1+ 1+ Urine Color Brown Urine Appearance Slightly cloudy Urine pH 8 (4.5-8.0) Urine Specific [place] 1.010 (1.005-1.035) Urine Protein 3+ (NEGATIVE) H Urine Glucose (UA) Negative (NEGATIVE) Urine Ketones 1+ (NEGATIVE) H Urine Occult Blood 5+ (NEGATIVE) H Urine Nitrite Positive (NEGATIVE) H Urine Bilirubin Negative (NEGATIVE) Urine Urobilinogen 4 MG/DL (0.0-1.0) H Urine Leukocyte Esterase 3+ (NEGATIVE) H Urine RBC 15-20 /HPF (0 - 0) H Urine WBC 5-10 /HPF (0 - 0) H Urine Squamous Epithelial Cells None /LPF (NONE/OCC) Urine Amorphous Sediment Few /LPF (NONE) H Urine Bacteria Moderate /HPF (NONE) H Sodium Level 139 mEQ/L (135-145) 142 mEQ/L (135-145) Potassium Level 4.4 mEQ/L (3.4-4.9) 4.4 mEQ/L (3.4-4.9) Chloride Level 96 mEQ/L (98-107) L 99 mEQ/L (98-107) Carbon Dioxide Level 29 mEQ/L (20-30) 18 mEQ/L (20-30) L Anion Gap 14 (5-15) 25 (5-15) H Blood Urea Nitrogen 32 mg/dL (7-23) H 44 mg/dL (7-23) H Creatinine 0.8 mg/dL (0.7-1.2) 1.5 mg/dL (0.7-1.2) #H Estimat Glomerular Filtration Rate mL/min (>60) mL/min (>60) Glucose Level 196 mg/dL (74-106) H 136 mg/dL (74-106) H Lactic Acid Level 1.90 mmol/L (0.66-2.22) 8.60 mmol/L (0.66-2.22) H Calcium Level 9.8 mg/dL (8.6-10.2) 9.3 mg/dL (8.6-10.2) Total Bilirubin 0.8 mg/dL (0.0-1.2) 1.5 mg/dL (0.0-1.2) H Aspartate Amino Transf (AST/SGOT) 22 U/L (5-40) 69 U/L (5-40) H Alanine Aminotransferase (ALT/SGPT) 25 U/L (3-41) 62 U/L (3-41) H Alkaline Phosphatase 92 U/L (40-129) 138 U/L (40-129) H Total Creatine Kinase 45 U/L (38-174) 103 U/L (38-174) Creatine Kinase MB 1.9 ng/mL (< 6.7) Creatine Kinase MB Relative Index 4.2 Troponin I < 0.30 ng/mL (<=0.30) Total Protein 8.1 g/dL (6.6-8.7) 6.3 g/dL (6.6-8.7) L Albumin 4.0 g/dL (3.5-5.2) 2.9 g/dL (3.5-5.2) L Globulin 4.1 g/dL 3.4 g/dL Albumin/Globulin Ratio 0.9 (1.0-2.7) L 0.8 (1.0-2.7) L Arterial Blood pH 7.402 (7.350-7.450) Arterial Blood Partial Pressure CO2 29.5 mmHg (35.0-45.0) L Arterial Blood Partial Pressure O2 87.8 mmHg (75.0-100.0) Arterial Blood HCO3 17.9 mmol/L (22.0-26.0) L Arterial Blood Oxygen Saturation 96.5 % (92.0-98.0) Arterial Blood Base Excess -5.4 Myron Test Positive Metamyelocytes % 2 % (0-0) H Myelocytes % 1 % (0-0) H Uric Acid 5.7 mg/dL (3.0-7.5) Phosphorus Level 3.6 mg/dL (2.5-4.8) Magnesium Level 2.1 mg/dL (1.7-2.5) Direct Bilirubin 0.9 mg/dL (0.1-0.3) H Test 03/23/17 11:10 Lactic Acid Level 7.60 mmol/L (0.66-2.22) H Microbiology Date/Time Source Procedure Growth Status 03/22/17 17:42 Urine,Clean Catch Urine Culture - Preliminary Gram Negative Bacillus 1 Resulted Height (Feet): 5 Height (Inches): 5.00 Weight (Pounds): 149 Medications Current Medications Medications (Trade) Dose Ordered Sig/Matt Route PRN Reason Start Time Stop Time Status Last Admin Dose Admin Acetaminophen (Tylenol) 650 mg Q4H PRN GT Mild Pain/Temp > 100.5 03/23/17 06:45 04/21/17 22:44 Acetaminophen (Tylenol) 650 mg Q4H PRN ORAL FEVER 03/23/17 10:15 04/22/17 10:14 Acetaminophen (Tylenol) 650 mg Q4H PRN ORAL Mild Pain (Pain Scale 1-3) 03/23/17 10:15 04/22/17 10:14 Aspirin (ASA) 81 mg DAILY GT 03/23/17 09:00 04/22/17 08:59 Cefepime HCl 2 gm/ Dextrose 110 ml @ 220 mls/hr Q12H IVPB 03/23/17 11:00 03/30/17 10:59 03/23/17 11:22 Clindamycin HCl/ Dextrose 50 ml @ 100 mls/hr Q8H IV 03/23/17 10:00 03/30/17 09:59 03/23/17 11:21 Clonidine HCl (Catapres) 0.1 mg Q4H PRN ORAL For High Blood Pressure 03/23/17 07:00 04/22/17 06:59 Heparin Sodium (Porcine) (Heparin 5000 units/ml) 5,000 units EVERY 8 HOURS SUBQ 03/23/17 06:00 04/22/17 05:59 Lorazepam (Ativan 2mg/ml 1ml) 0.5 mg Q4H PRN IV For Anxiety 03/23/17 10:15 03/30/17 10:14 Morphine Sulfate (Morphine Sulfate) 2 mg Q6H PRN IVP Moderate Pain (Pain Scale 4-6) 03/23/17 10:15 03/30/17 10:14 Ondansetron HCl (Zofran) 4 mg Q6H PRN IVP Nausea & Vomiting 03/23/17 10:15 04/22/17 10:14 Polyethylene Glycol (Miralax) 17 gm DAILY PRN ORAL Constipation 03/23/17 10:15 04/22/17 10:14 Sodium Chloride 1,000 ml @ 100 mls/hr Q10H IV 03/23/17 10:15 04/22/17 10:14 03/23/17 11:22 Objective Narrative Procedure: Under sterile conditions, unable to place urethral mary to irrigate. 12 maldivian SP tube placed at bedside under sterile conditions. Immediate evacuation of 200 mL dark yellow urine, foul smelling. irrigated, no clots seen. Likely clots are within prostatic urethra. Patient tolerated well.Unable to consent patient, next of kin is just friend not true power of research attorney. patient procedure done as emergency. Assessment/Plan Status: stable Assessment/Plan 76 yo male with multiple medical conditions and urinary retention from clots and /or UTI and/or poorly placed mary. SP tube placed at bedside.. Urine in bladder is yellow. No clots noted. Continue drainage for treatment of likely UTI. 1. continue SP tube 2. treat proposed UTI Juan Alberto Herring M.D. Mar 23, 2017 12:26
[2017-03-23 14:29] LABS: APPEARANCE,URINE TURBID; KETONES,URINE NEGATIVE (NEGATIVE); LEUKOCYTE ESTERASE ,URINE 3+ (NEGATIVE); NITRITE,URINE POSITIVE (NEGATIVE); PH,URINE 5 (4.5-8.0); PROTEIN,URINE 3+ (NEGATIVE); UROBILINOGEN,URINE 1 MG/DL (0.0-1.0)
[2017-03-23] MEDS ORDERED: NS Irrig 1000ml ONE (14:31)
[2017-03-23 14:44] LABS: RBC,URINE TNTC /HPF (0 - 0); WBC,URINE 30-40 /HPF (0 - 0)
[2017-03-23 14:45] LABS: BACTERIA,URINE MODERATE /HPF; GRANULAR CASTS,URINE 0-2 /LPF; ICTOTEST NEGATIVE; SQUAMOUS EPITHELIAL CELL,UR FEW /LPF (NONE/OCC)
--- NOTE | 2017-03-23 15:02 | General Progress Note ---
Assessment/Plan Assessment/Plan GI Consult Dictated Will order new GT and replace Hold off on feeds until BP and resp status stabilized Thank you Pablo Joya MD Subjective Allergies: Coded Allergies: No Known Allergies (Verified , 09/26/12) Objective Last 24 Hour Vital Signs Date Time Temp Pulse Resp B/P (MAP) Pulse Ox O2 Delivery O2 Flow Rate FiO2 03/23/17 14:00 99 29 83/58 99 Non-Rebreather 100 03/23/17 13:30 98 27 80/45 97 Non-Rebreather 100 03/23/17 13:00 100 26 85/47 97 Non-Rebreather 100 03/23/17 12:30 96 25 96/80 97 Non-Rebreather 100 03/23/17 12:00 96 29 87/44 98 Non-Rebreather 100 03/23/17 12:00 91 03/23/17 11:30 94 30 80/42 98 Non-Rebreather 100 03/23/17 11:00 94 30 107/72 97 Non-Rebreather 100 03/23/17 10:30 95 30 86/72 96 Non-Rebreather 100 03/23/17 10:00 91 29 92/73 96 Non-Rebreather 100 03/23/17 09:30 89 29 75/63 98 Non-Rebreather 100 03/23/17 09:00 90 27 80/45 99 Non-Rebreather 100 03/23/17 08:30 88 23 79/44 99 Non-Rebreather 100 03/23/17 08:00 99.0 89 18 138/122 99 Non-Rebreather 100 03/23/17 08:00 89 03/23/17 07:30 91 29 135/117 97 Non-Rebreather 100 03/23/17 07:12 99 Non-Rebreather 15.0 100 03/23/17 07:12 Non-Rebreather 15.0 100 03/23/17 07:00 97 19 94/72 100 Non-Rebreather 100 03/23/17 06:30 92 25 151/125 100 Non-Rebreather 100 03/23/17 06:00 93 25 128/98 98 Non-Rebreather 100 03/23/17 05:45 94 25 58/40 100 Non-Rebreather 100 03/23/17 05:30 95 25 99/47 99 Non-Rebreather 100 03/23/17 05:00 97.9 102 25 152/99 91 Non-Rebreather 100 03/23/17 04:20 89 24 49/28 Non-Rebreather 15.0 87 03/23/17 04:15 97.0 98 24 60/35 Non-Rebreather 15.0 97 03/23/17 04:10 97.0 88 24 75/40 Nasal Cannula 2.0 86 03/23/17 04:00 97.0 98 24 56/36 Nasal Cannula 2.0 91 03/23/17 04:00 93 03/23/17 00:02 120 145/80 03/23/17 00:00 122 03/23/17 00:00 98.1 101 24 121/93 Nasal Cannula 2.0 03/22/17 21:40 97.8 112 20 148/85 97 Nasal Cannula 2.0 03/22/17 18:59 89 15 104/66 96 Nasal Cannula 2.0 03/22/17 17:30 106 19 Nasal Cannula 2.0 03/22/17 17:30 99.2 106 19 117/65 95 Nasal Cannula 2.0 03/22/17 17:12 102.0 104 16 118/60 95 Nasal Cannula 2.0 Intake and Output 03/23/17 03/24/17 19:00 07:00 Intake Total 440 ml Output Total 420 ml Balance 20 ml Intake Free Water 20 ml IV Total 420 ml Output Urine Total 420 ml Laboratory Tests 03/22/17 17:42: White Blood Count 28.1*H, Red Blood Count 5.19, Hemoglobin 16.2, Hematocrit 46.2 , Mean Corpuscular Volume 89, Mean Corpuscular Hemoglobin 31.3H, Mean Corpuscular Hemoglobin Concent 35.2, Red Cell Distribution Width 15.3H, Platelet Count 253, Mean Platelet Volume 8.3, Neutrophils (%) (Auto) , Lymphocytes (%) (Auto) , Monocytes (%) (Auto) , Eosinophils (%) (Auto) , Basophils (%) (Auto) , Differential Total Cells Counted 100, Neutrophils % ( Manual) 86H, Lymphocytes % (Manual) 5L, Monocytes % (Manual) 4, Eosinophils % ( Manual) 2, Basophils % (Manual) 0, Band Neutrophils 3, Other Cell Type , Platelet Estimate Adequate, Platelet Morphology Normal, Anisocytosis 1+, Urine Color Brown, Urine Appearance Slightly cloudy, Urine pH 8, Urine Specific [place] 1.010, Urine Protein 3+H, Urine Glucose (UA) Negative, Urine Ketones 1+H , Urine Occult Blood 5+H, Urine Nitrite PositiveH, Urine Bilirubin Negative, Urine Urobilinogen 4H, Urine Leukocyte Esterase 3+H, Urine RBC 15-20H, Urine WBC 5-10H, Urine Squamous Epithelial Cells None, Urine Amorphous Sediment FewH, Urine Bacteria ModerateH, Sodium Level 139, Potassium Level 4.4, Chloride Level 96L, Carbon Dioxide Level 29, Anion Gap 14, Blood Urea Nitrogen 32H, Creatinine 0.8, Estimat Glomerular Filtration Rate , Glucose Level 196H, Lactic Acid Level 1.90, Calcium Level 9.8, Total Bilirubin 0.8, Aspartate Amino Transf (AST/SGOT) 22, Alanine Aminotransferase (ALT/SGPT) 25, Alkaline Phosphatase 92, Total Creatine Kinase 45, Creatine Kinase MB 1.9, Creatine Kinase MB Relative Index 4.2, Troponin I < 0.30, Total Protein 8.1, Albumin 4.0, Globulin 4.1, Albumin/ Globulin Ratio 0.9L 03/23/17 04:35: Arterial Blood pH 7.402, Arterial Blood Partial Pressure CO2 29.5L, Arterial Blood Partial Pressure O2 87.8, Arterial Blood HCO3 17.9L, Arterial Blood Oxygen Saturation 96.5, Arterial Blood Base Excess -5.4, Myron Test Positive 03/23/17 04:50: White Blood Count 23.1*H, Red Blood Count 4.84, Hemoglobin 14.7, Hematocrit 44.6 , Mean Corpuscular Volume 92, Mean Corpuscular Hemoglobin 30.3, Mean Corpuscular Hemoglobin Concent 32.9, Red Cell Distribution Width 15.6H, Platelet Count 166, Mean Platelet Volume 8.8, Neutrophils (%) (Auto) , Lymphocytes (%) (Auto) , Monocytes (%) (Auto) , Eosinophils (%) (Auto) , Basophils (%) (Auto) , Differential Total Cells Counted 100, Neutrophils % ( Manual) 78H, Lymphocytes % (Manual) 1L, Monocytes % (Manual) 0L, Eosinophils % ( Manual) 1, Basophils % (Manual) 0, Band Neutrophils 17H, Other Cell Type , Platelet Estimate Adequate, Platelet Morphology Normal, Anisocytosis 1+, Sodium Level 142, Potassium Level 4.4, Chloride Level 99, Carbon Dioxide Level 18L, Anion Gap 25H, Blood Urea Nitrogen 44H, Creatinine 1.5#H, Estimat Glomerular Filtration Rate , Glucose Level 136H, Calcium Level 9.3, Total Bilirubin 1.5H, Aspartate Amino Transf (AST/SGOT) 69H, Alanine Aminotransferase (ALT/SGPT) 62H, Alkaline Phosphatase 138H, Total Creatine Kinase 103, Total Protein 6.3L, Albumin 2.9L, Globulin 3.4, Albumin/Globulin Ratio 0.8L, Metamyelocytes % 2H, Myelocytes % 1H, Uric Acid 5.7, Phosphorus Level 3.6, Magnesium Level 2.1, Direct Bilirubin 0.9H 03/23/17 09:10: Lactic Acid Level 8.60H 03/23/17 11:10: Lactic Acid Level 7.60H 03/23/17 12:00: Urine Color Yellow, Urine Appearance Turbid, Urine pH 5, Urine Specific [place] 1.005, Urine Protein 3+H, Urine Glucose (UA) Negative, Urine Ketones Negative, Urine Occult Blood 5+H, Urine Nitrite PositiveH, Urine Bilirubin 1+H, Urine Ictotest Negative, Urine Urobilinogen 1H, Urine Leukocyte Esterase 3+H, Urine RBC TntcH, Urine WBC 30-40H, Urine Squamous Epithelial Cells Few, Urine Bacteria ModerateH, Urine Granular Casts 0-2H, Urine Eosinophils None seen, Urine Random Sodium 126, Urine Potassium Timed 13 Height (Feet): 5 Height (Inches): 5.00 Weight (Pounds): 149 HOLLIPABLO DILLON Mar 23, 2017 15:02
--- NOTE | 2017-03-23 15:33 | Cardiology Report ---
APPROVED REPORT EXAM: Two-dimensional and M-mode echocardiogram with Doppler and color Doppler. INDICATION Left ventricular function Technically difficult study due to poor acoustic windows. M-mode measurements not obtainable due to cardiac structure. Normal left ventricular chamber size, systolic function and wall motion. Left ventricular ejection fraction estimated to be 55-60%. No evidence of left ventricular hypertrophy. No evidence of pericardial fat or effusion. All other cardiac chamber sizes are within normal limits. Focal aortic valve sclerosis with adequate cusp excursion Aortic root dialated. Thickened mitral valve leaflets with normal excursion. Mitral annulus and aortic root calcification. Pulmonic valve not well visualized. Normal tricuspid valve structure. IVC is not obtainable. A color flow and spectral Doppler study was performed and revealed: Trace aortic regurgitation. No mitral regurgitation. Left ventricular diastolic dysfunction grade 1. No tricuspid regurgitation.
--- NOTE | 2017-03-23 15:35 | Cardiology Report ---
APPROVED REPORT EKG Measurement Heart [id number] Sinus tachycardia with frequent premature ventricular complexes Otherwise normal ECG
--- NOTE | 2017-03-23 15:50 | Diagnostic Imaging Report ---
Indication:Elevated Bun and Creatinine. Technique: Grayscale and duplex Doppler imaging of the kidneys performed. Comparison: None Findings: There is a 6 x 4 cm ovoid cyst in the lower pole right kidney. This is probably parapelvic. Other smaller cysts are demonstrated within the right kidney. Renal echogenicity and contour appear normal bilaterally. Renal size is normal bilaterally. Left kidney is not as well seen. IVC is unremarkable in appearance. Lamar catheter noted. The right kidney is 9.3 CM. Left kidney is 4.6 CM in length. Impression: Poor visualization of the left kidney. Multiple cysts within the right kidney.
[2017-03-23] MEDS ORDERED: 1/2 NS 1000ml IV ONE (15:57)
[2017-03-23] MEDS ORDERED: NS 275ml ONE (15:57)
[2017-03-23] MEDS ORDERED: Tubing IV Secondary IV ONE (15:57)
[2017-03-23 17:01] LABS: REFLEX LACTIC ACID YES OR NO YES
--- NOTE | 2017-03-23 20:48 | Cardiology Progress Note ---
Assessment/Plan Assessment/Plan The patient is seen and examined, full consult note will be dictated. Objective Last 24 Hour Vital Signs Date Time Temp Pulse Resp B/P (MAP) Pulse Ox O2 Delivery O2 Flow Rate FiO2 03/23/17 19:30 95 Non-Rebreather 15.0 100 03/23/17 19:30 Non-Rebreather 15.0 100 03/23/17 19:00 100 29 84/47 98 Non-Rebreather 100 03/23/17 18:30 103 31 103/74 97 Non-Rebreather 100 03/23/17 18:00 104 30 94/50 96 Non-Rebreather 100 03/23/17 17:30 105 31 92/49 96 Non-Rebreather 100 03/23/17 17:00 106 31 83/41 98 Non-Rebreather 100 03/23/17 16:30 106 31 84/44 96 Non-Rebreather 100 03/23/17 16:00 103 03/23/17 16:00 99.5 103 31 90/41 99 Non-Rebreather 100 03/23/17 15:30 102 30 85/44 99 Non-Rebreather 100 03/23/17 15:00 99 30 89/45 99 Non-Rebreather 100 03/23/17 14:30 98 30 73/40 99 Non-Rebreather 100 03/23/17 14:00 99 29 83/58 99 Non-Rebreather 100 03/23/17 13:30 98 27 80/45 97 Non-Rebreather 100 03/23/17 13:00 100 26 85/47 97 Non-Rebreather 100 03/23/17 12:30 96 25 96/80 97 Non-Rebreather 100 03/23/17 12:00 96 29 87/44 98 Non-Rebreather 100 03/23/17 12:00 91 03/23/17 11:30 94 30 80/42 98 Non-Rebreather 100 03/23/17 11:00 94 30 107/72 97 Non-Rebreather 100 03/23/17 10:30 95 30 86/72 96 Non-Rebreather 100 03/23/17 10:00 91 29 92/73 96 Non-Rebreather 100 03/23/17 09:30 89 29 75/63 98 Non-Rebreather 100 03/23/17 09:00 90 27 80/45 99 Non-Rebreather 100 03/23/17 08:30 88 23 79/44 99 Non-Rebreather 100 03/23/17 08:00 99.0 89 18 138/122 99 Non-Rebreather 100 03/23/17 08:00 89 03/23/17 07:30 91 29 135/117 97 Non-Rebreather 100 03/23/17 07:12 99 Non-Rebreather 15.0 100 03/23/17 07:12 Non-Rebreather 15.0 100 03/23/17 07:00 97 19 94/72 100 Non-Rebreather 100 03/23/17 06:30 92 25 151/125 100 Non-Rebreather 100 03/23/17 06:00 93 25 128/98 98 Non-Rebreather 100 03/23/17 05:45 94 25 58/40 100 Non-Rebreather 100 03/23/17 05:30 95 25 99/47 99 Non-Rebreather 100 03/23/17 05:00 97.9 102 25 152/99 91 Non-Rebreather 100 03/23/17 04:20 89 24 49/28 Non-Rebreather 15.0 87 03/23/17 04:15 97.0 98 24 60/35 Non-Rebreather 15.0 97 03/23/17 04:10 97.0 88 24 75/40 Nasal Cannula 2.0 86 03/23/17 04:00 97.0 98 24 56/36 Nasal Cannula 2.0 91 03/23/17 04:00 93 03/23/17 00:02 120 145/80 03/23/17 00:00 122 03/23/17 00:00 98.1 101 24 121/93 Nasal Cannula 2.0 03/22/17 21:40 97.8 112 20 148/85 97 Nasal Cannula 2.0 Intake and Output 03/23/17 03/24/17 19:00 07:00 Intake Total 1030 ml Output Total 600 ml Balance 430 ml Intake Free Water 20 ml IV Total 970 ml Other 40 ml Output Urine Total 600 ml Laboratory Tests Test 03/23/17 04:35 03/23/17 04:50 03/23/17 09:10 03/23/17 11:10 Arterial Blood pH 7.402 (7.350-7.450) Arterial Blood Partial Pressure CO2 29.5 mmHg (35.0-45.0) L Arterial Blood Partial Pressure O2 87.8 mmHg (75.0-100.0) Arterial Blood HCO3 17.9 mmol/L (22.0-26.0) L Arterial Blood Oxygen Saturation 96.5 % (92.0-98.0) Arterial Blood Base Excess -5.4 Myron Test Positive White Blood Count 23.1 K/UL (4.8-10.8) *H Red Blood Count 4.84 M/UL (4.70-6.10) Hemoglobin 14.7 G/DL (14.2-18.0) Hematocrit 44.6 % (42.0-52.0) Mean Corpuscular Volume 92 FL (80-99) Mean Corpuscular Hemoglobin 30.3 PG (27.0-31.0) Mean Corpuscular Hemoglobin Concent 32.9 G/DL (32.0-36.0) Red Cell Distribution Width 15.6 % (11.6-14.8) H Platelet Count 166 K/UL (150-450) Mean Platelet Volume 8.8 FL (6.5-10.1) Neutrophils (%) (Auto) % (45.0-75.0) Lymphocytes (%) (Auto) % (20.0-45.0) Monocytes (%) (Auto) % (1.0-10.0) Eosinophils (%) (Auto) % (0.0-3.0) Basophils (%) (Auto) % (0.0-2.0) Differential Total Cells Counted 100 Neutrophils % (Manual) 78 % (45-75) H Lymphocytes % (Manual) 1 % (20-45) L Monocytes % (Manual) 0 % (1-10) L Eosinophils % (Manual) 1 % (0-3) Basophils % (Manual) 0 % (0-2) Metamyelocytes % 2 % (0-0) H Myelocytes % 1 % (0-0) H Band Neutrophils 17 % (0-8) H Other Cell Type Platelet Estimate Adequate Platelet Morphology Normal Anisocytosis 1+ Sodium Level 142 mEQ/L (135-145) Potassium Level 4.4 mEQ/L (3.4-4.9) Chloride Level 99 mEQ/L (98-107) Carbon Dioxide Level 18 mEQ/L (20-30) L Anion Gap 25 (5-15) H Blood Urea Nitrogen 44 mg/dL (7-23) H Creatinine 1.5 mg/dL (0.7-1.2) #H Estimat Glomerular Filtration Rate mL/min (>60) Glucose Level 136 mg/dL (74-106) H Uric Acid 5.7 mg/dL (3.0-7.5) Calcium Level 9.3 mg/dL (8.6-10.2) Phosphorus Level 3.6 mg/dL (2.5-4.8) Magnesium Level 2.1 mg/dL (1.7-2.5) Total Bilirubin 1.5 mg/dL (0.0-1.2) H Direct Bilirubin 0.9 mg/dL (0.1-0.3) H Aspartate Amino Transf (AST/SGOT) 69 U/L (5-40) H Alanine Aminotransferase (ALT/SGPT) 62 U/L (3-41) H Alkaline Phosphatase 138 U/L (40-129) H Total Creatine Kinase 103 U/L (38-174) Total Protein 6.3 g/dL (6.6-8.7) L Albumin 2.9 g/dL (3.5-5.2) L Globulin 3.4 g/dL Albumin/Globulin Ratio 0.8 (1.0-2.7) L Lactic Acid Level 8.60 mmol/L (0.66-2.22) H 7.60 mmol/L (0.66-2.22) H Test 03/23/17 12:00 03/23/17 16:35 Urine Color Yellow Urine Appearance Turbid Urine pH 5 (4.5-8.0) Urine Specific [place] 1.005 (1.005-1.035) Urine Protein 3+ (NEGATIVE) H Urine Glucose (UA) Negative (NEGATIVE) Urine Ketones Negative (NEGATIVE) Urine Occult Blood 5+ (NEGATIVE) H Urine Nitrite Positive (NEGATIVE) H Urine Bilirubin 1+ (NEGATIVE) H Urine Ictotest Negative Urine Urobilinogen 1 MG/DL (0.0-1.0) H Urine Leukocyte Esterase 3+ (NEGATIVE) H Urine RBC Tntc /HPF (0 - 0) H Urine WBC 30-40 /HPF (0 - 0) H Urine Squamous Epithelial Cells Few /LPF (NONE/OCC) Urine Bacteria Moderate /HPF (NONE) H Urine Granular Casts 0-2 /LPF (NONE) H Urine Eosinophils None seen Urine Random Sodium 126 mmol/L Urine Potassium Timed 13 mmol/L Lactic Acid Level 6.30 mmol/L (0.66-2.22) H Microbiology Date/Time Source Procedure Growth Status 03/22/17 17:42 Urine,Clean Catch Urine Culture - Preliminary Gram Negative Bacillus 1 Resulted 03/22/17 23:29 Foot Left Gram Stain - Final Resulted 03/22/17 23:29 Foot Left Wound Culture Pending Resulted 03/22/17 23:29 Abdomen Gram Stain - Final Resulted 03/22/17 23:29 Abdomen Wound Culture Pending Resulted FRANCISCO SPAIN Mar 23, 2017 20:48
[2017-03-23] MEDS ORDERED: Donepezil 10mg tab GT SCH ×2 (21:00)
[2017-03-23] MEDS: Dyna-Hex 2% Top Sol 8oz TOPIC SCH (21:00)
[2017-03-23 21:28] LABS: ABG PCO2 30.5 mmHg (35.0-45.0)
[2017-03-23 21:29] LABS: ABG ALLEN TEST POSITIVE; ABG BASE EXCESS -2.5
[2017-03-23] MEDS ORDERED: Lidocaine 1% 10mg/ml/Epi 0.005mg/ml 30ml vial INJ ONE (21:30)
[2017-03-23] MEDS ORDERED: Levophed 4mg/4mL Inj IV ONE (21:30)
--- NOTE | 2017-03-23 21:50 | Emergency Room Report ---
History of Present Illness General Chief Complaint: Fever Source: Medical Record Present Illness Allergies: Coded Allergies: No Known Allergies (Verified , 09/26/12) Nursing Documentation-H Past Medical History Deferred: Patient Unconscious Past Medical History: No History, Except For Hx Cardiac Problems: Yes - tachycardia Hx Hypertension: Yes Hx COPD: Yes Hx Cancer: No Hx Gastrointestinal Problems: Yes - G-tube, Cachexia Hx Neurological Problems: Yes - Cerebral Infartion Hx Cerebrovascular Accident: Yes Hx Dementia: Yes Hx Alzheimer's Disease: Yes Hx Seizures: Yes Hx Weakness: Yes Physical Exam Vital Signs Date Time Temp Pulse Resp B/P (MAP) Pulse Ox O2 Delivery O2 Flow Rate FiO2 03/22/17 17:12 102.0 104 16 118/60 95 Nasal Cannula 2.0 03/23/17 04:00 91 Procedures Central Line Central Line : Consent: Emergent Central Line Lumen: triple Maximal Sterile Barrier Tech: yes cap, yes mask, yes sterile gown, yes sterile gloves, yes large sterile sheet, yes hand hygiene, yes chlorhexidine prep No Max Barrier Tech Because: emergency insertion Central Line Postion: internal jugular (R) Anesthesia: Lidocaine Complications: none Central Line Post Position: sutured, good blood return, position confirmed w / CXR Attempts: One Patient Tolerated: Well Complications: None Progress Called to ICU by Dr Morillo for Central line placement for hypotensive patient BP 65/35 Still with altered mental status Patient admitted yesterday for UTI. 2L NS given today Levophed ordered by managing hospitalist JACINTO Central line placed under ultrasound guidance - levophed gtt connected as patient critically hypotensive CXR pending verification Medical Decision Making Diagnostic Impression: Primary Impression: Sepsis Qualified Codes: A41.9 - Sepsis, unspecified organism Additional Impressions: UTI (urinary tract infection) Qualified Codes: N30.01 - Acute cystitis with hematuria Septic shock Last Vital Signs Date Time Temp Pulse Resp B/P (MAP) Pulse Ox O2 Delivery O2 Flow Rate FiO2 03/23/17 21:30 95 23 65/28 99 Non-Rebreather 100 03/23/17 20:00 98.6 03/23/17 19:30 15.0 Disposition: ADMITTED INPATIENT Condition: Serious Referrals: Sary Oakes MD (PCP) SABAS LOWE M.D. Mar 23, 2017 21:50
[2017-03-24] VITALS (69 sets, daily range): BP systolic 67–152; BP diastolic 35–126
--- NOTE | 2017-03-24 01:00 | Consultation ---
DATE OF CONSULTATION: INFECTIOUS DISEASE CONSULTATION REQUESTING PHYSICIAN: Sary Oakes M.D. REASON FOR CONSULTATION: Sepsis and urinary tract infection, recommendation for antibiotics treatment. HISTORY OF PRESENT ILLNESS: The patient is a 76-year-old male with past medical history of coronary artery disease, hypertension, COPD, and dementia was brought into [facility] emergency room for a concern of sepsis. The patient was found to have fever of 102 in the emergency room and tachycardic up to 104. He was saturating okay on nasal cannula at first, but then later he required a nonrebreather mask. The patient was septic, received IV antibiotics in the emergency room. His urinalysis showed evidence of infection, so I was consulted by the primary provider for antibiotics treatment and further management in the setting of renal failure for his urosepsis. As of note, the patient is poor historian, cannot provide any history at this moment. History was obtained from medical records. PAST MEDICAL HISTORY: Significant for COPD, hypertension, coronary artery disease, and Alzheimer's dementia. PAST SURGICAL HISTORY: Unable to obtain. MEDICATIONS: He received cefepime in the emergency room. For the rest of his medications, please refer to MAR. ALLERGIES: No known drug allergy. SOCIAL HISTORY: The patient lives at a retirement. No recent drugs, tobacco or alcohol. FAMILY HISTORY: Unable to obtain. PHYSICAL EXAMINATION: VITAL SIGNS: Temperature 98, respirations 27, blood pressure 80/45, and pulse oximetry 97% on nonrebreather mask with FiO2 of 100%. GENERAL: Old male, cachectic, unresponsive, lying in bed, comfortable, not in distress. HEENT: Normocephalic and atraumatic. Pupils mildly reactive to light. Unable to assess oral mucosa due to Ventimask. NECK: Supple. No lymphadenopathy or masses. CARDIOVASCULAR: He is tachycardic. S1 and S2 normal. No murmur. LUNGS: He has diminished breathing sounds at the bases. Normal breathing effort. No wheezing or rhonchi. ABDOMEN: Soft, nontender, and nondistended. Hypoactive bowel sounds. Umbilical wound with erythema and cellulitis surrounding. EXTREMITIES: Dry skin with bruises and abrasion mainly on his heels with right heel wound and sacral wound. LABORATORY DATA: Labs showed white count of 23.1, hemoglobin of 14.7, and platelet count of 166,000. BUN of 44 and creatinine of 1.5. Urinalysis showed leukocyte esterase +3, positive nitrites, WBCs 5 to 10, and moderate amount of bacteria. Microbiology, urine culture is growing gram-negative bacillus more than 100,000 colony. Wound culture in the left foot and abdomen both are pending. IMAGING: Chest x-ray on admission showed basal scarring versus atelectasis. Repeated chest x-ray today showed mild basilar atelectasis. Venous Doppler showed patent deep venous system bilaterally with no evidence of thrombus within the femoral, popliteal, or tibial segment. ASSESSMENT AND RECOMMENDATIONS: 1. Urinary tract infection. We will start the patient on cefepime, pending urine culture. 2. Right heel wound possible infection and underlying osteomyelitis. We will obtain x-ray of his right foot. Await wound culture. The patient will be on cefepime and clindamycin. 3. Sepsis due to the above. We will start cefepime and clindamycin empirically, pending culture results. 4. Abdominal wound with cellulitis. The patient will be on wide-spectrum antibiotics treatment. Continue local wound care. 5. Dehydration with acute renal failure. Continue fluids and monitor urine output and electrolytes. 6. Poor prognosis. The patient is cachectic with advanced dementia and multiple comorbidities and sepsis complicated with multiple organ failure. He may benefit from palliative care and hospice. Thank you for the consult. Jose Juarez M.D. DR: DENISSE JOB#: [id number] CC:
[2017-03-24] MEDS: Clindamycin 600mg 50 ML IV SCH ×3 (01:29→17:07)
[2017-03-24 05:39] LABS: MEAN CORPUSCULAR HEMOGLOBIN 30.9 PG (27.0-31.0); MEAN CORPUSCULAR HGB CONC 33.3 G/DL (32.0-36.0); MEAN CORPUSCULAR VOLUME 93 FL (80-99); MEAN PLATELET VOLUME 11.4 FL (6.5-10.1); PLATELET COUNT 136 K/UL (150-450); RED BLOOD COUNT 4.35 M/UL (4.70-6.10); RED CELL DISTRIBUTION WIDTH 15.9 % (11.6-14.8)
[2017-03-24 05:50] LABS: WHITE BLOOD COUNT 62.6 K/UL (4.8-10.8)
[2017-03-24 05:56] LABS: LACTATE DEHYDROGENASE 761 U/L (135-230)
[2017-03-24 05:57] LABS: HEMOLYSIS 99; IRON 20 ug/dL (59-158); TOTAL IRON BINDING CAPACITY 236 ug/dL (250-400)
[2017-03-24] MEDS: Heparin 5000 units/ml inj SUBQ SCH (06:00)
[2017-03-24 06:07] LABS: REFLEX LACTIC ACID YES OR NO YES
[2017-03-24 06:12] LABS: ALBUMIN/GLOBULIN RATIO 0.7 (1.0-2.7); ANION GAP 22 (5-15); CALCIUM 8.4 mg/dL (8.6-10.2); CARBON DIOXIDE 20 mEQ/L (20-30); CHLORIDE 97 mEQ/L (98-107); CREATININE 2.5 mg/dL (0.7-1.2); HEMOLYSIS 5; MAGNESIUM 2.3 mg/dL (1.7-2.5); PHOSPHORUS 5.5 mg/dL (2.5-4.8); POTASSIUM 5.3 mEQ/L (3.4-4.9); SODIUM 139 mEQ/L (135-145); TOTAL PROTEIN 6.1 g/dL (6.6-8.7)
[2017-03-24 06:27] LABS: ALANINE AMINOTRANSFERASE 864 U/L (3-41); ASPARTATE AMINO TRANSFERASE 867 U/L (5-40); PSA TOTAL 149.3 ng/mL (< 4.5)
[2017-03-24 06:32] LABS: AMMONIA 46 umol/L (16-60)
--- NOTE | 2017-03-24 06:45 | Consultation ---
DATE OF CONSULTATION: 03/23/2017 GASTROENTEROLOGY CONSULTATION CHIEF COMPLAINT: I was asked to see this patient by Dr. Sary Oakes today for evaluation of gastrostomy issues. HISTORY OF PRESENT ILLNESS: The patient is an unfortunate 76-year-old white man with impaired cognitive dysfunction who was brought into the hospital and then subsequently transferred to the intensive care unit for sepsis and shock. The patient himself is not able to provide any history and most of the information is only available in the chart. The patient is declining outpatient course and has required a gastrostomy tube for long-term enteral access. The gastrostomy tube was reportedly dislodged and was repositioned. The patient is now in the ICU and he just underwent suprapubic catheter placement. There is no family at bedside for further information. PAST MEDICAL HISTORY: Remarkable for advanced cognitive dysfunction, malnutrition, status post gastrostomy tube placement, hypercholesterolemia, and dementia. FAMILY HISTORY: Not available and not obtainable. SOCIAL HISTORY: The patient is a assisted resident and has had no recent history of smoking or drinking. REVIEW OF SYSTEMS: The patient also has a history of seizures on review of his medical records. PHYSICAL EXAMINATION: GENERAL: Debilitated thin white man, seen in the intensive care unit. HEENT: Normocephalic and atraumatic. There is temporal wasting. NECK: Supple. CHEST: Clear to auscultation. CARDIOVASCULAR: Revealed a regular rate. ABDOMEN: Soft with a gastrostomy tube as well as suprapubic catheter. EXTREMITIES: Revealed no edema. LABORATORY DATA: Noted. ASSESSMENT: This patient presents with hypotension, shock, respiratory failure, and sepsis. He is in the intensive care unit and still somewhat hypotensive, although pressors have now been started. I will replace the gastrostomy tube with the new one, but the current one appears to be in reasonable good place and therefore can be used for medications. His TPN should be held for now until the patient's cardiovascular and respiratory status have been optimized and stabilized. The discussion can also be made regarding the patient's overall care plan and care status. RECOMMENDATIONS: 1. Keep the patient NPO for now. 2. Okay to use gastrostomy tube for medications. 3. Gastrostomy tube replacement. 4. Supportive care and antibiotics. Thank you for asking me to participate in the care of this patient. Pablo Joya M.D. DR: SIENNA JOB#: [id number] CC:
[2017-03-24 07:08] LABS: BILIRUBIN,DIRECT 0.7 mg/dL (0.1-0.3)
[2017-03-24] MEDS: Aspirin Baby 81mg GT SCH (07:21)
[2017-03-24 08:15] LABS: ANISOCYTOSIS 1+; BAND NEUTROPHILS % (MANUAL) 18 % (0-8); BASOPHILS % (MANUAL) 0 % (0-2); EOSINOPHILS % (MANUAL) 1 % (0-3); LYMPHOCYTES % (MANUAL) 1 % (20-45); METAMYELOCYTES % 3 % (0-0); MYELOCYTES % 1 % (0-0); NEUTROPHILS % (MANUAL) 72 % (45-75); PLATELET ESTIMATE DECREASED; PLATELET MORPHOLOGY NORMAL; TOTAL CELLS COUNTED 100
[2017-03-24] MEDS: Dyna-Hex 2% Top Sol 8oz TOPIC SCH (08:44)
--- NOTE | 2017-03-24 09:01 | History and Physical Report ---
DATE OF ADMISSION: 03/22/2017 HISTORY OF PRESENT ILLNESS: The patient originally admitted to telemetry for fever of 102 degrees at the [facility], rule out sepsis. The patient also had leukocytosis and admitted for sepsis and UTI. The patient is a poor historian, cannot get any history from the patient. Basically, the patient also had a change of condition, became hypotensive and hypoxic and was transferred to ICU. All the consultants were informed immediately of this change in condition. PAST MEDICAL HISTORY: Advanced dementia, hypertension, hyperlipidemia, and constipation. PAST SURGICAL HISTORY: None known. MEDICATIONS: Donepezil, amlodipine, aspirin, Lipitor, bisacodyl, hydralazine, and . ALLERGIES: No known allergies. SOCIAL HISTORY: Unable to obtain. Comes from the [facility]. FAMILY HISTORY: Noncontributory. REVIEW OF SYSTEMS: Very poor historian. Unable to obtain. PHYSICAL EXAMINATION: VITAL SIGNS: Temperature is not recorded, pulse is 106, and blood pressure was initially 84/44. HEENT: PERRLA. NECK: Supple. No lymphadenopathy. CHEST: Clear to auscultation. GASTROINTESTINAL: Soft, nontender, and nondistended. No organomegaly. EXTREMITIES: No edema. NEUROLOGIC: He is currently lethargic. Reflexes equal on both sides. LABORATORY DATA: Initially, WBC of 28, hemoglobin 16.2, and platelets 253,000. Sodium 140, potassium 4.4, BUN of 44, and creatinine 1.5. AST of 69, ALT of 62, and total bilirubin of 1.5. ASSESSMENT AND PLAN: 1. Azotemia. 2. Renal failure. 3. Dehydration. 4. Sepsis. 5. Urinary tract infection. 6. Severe leukocytosis. 7. Borderline liver function test elevation as well as change in condition where the patient became hypotensive and hypoxic. I have asked Dr. Juarez, Dr. Sanchez, Dr. Herring for the hematuria, and Dr. Zimmerman, Dr. Brooks, and Dr. Rendon, Dr. Joya to see the patient for the above-mentioned diagnoses and treatment. Sary Oakes M.D. DR: Carolee JOB#: [id number] CC: SANTOSH
--- NOTE | 2017-03-24 09:53 | Consultation ---
Consult Note Consult Note asked to eval for rising Cr 0.8 to 2.5 Seen in ICU Has supra pubic Massive hematuria . Assessment/Plan Status; - Acute Renal Failure- - Dislodged gastrostomy tube - UTI (urinary tract infection), with severe leukocytosis - h/o Seizure - Dementia - Sepsis - COPD (chronic obstructive pulmonary disease) - Cachexia Plan: Keep BP above 100 Avoid Nephrotoxics Monitor renal parameters Per consultants FAITH SEARS Mar 24, 2017 09:53
--- NOTE | 2017-03-24 09:54 | Pulmonolgy Critical Care Note ---
Critical Care - Asmt/Plan Problems: (1) Septic shock (2) ATN (acute tubular necrosis) (3) Gross hematuria (4) Prostate cancer (5) Suprapubic catheter (6) Cachexia (7) Dementia (8) COPD (chronic obstructive pulmonary disease) Respiratory: monitor respiratory rate, adjust FIO2, CXR Cardiac: continue pressors, continue to monitor HR/BP Renal: F/U I&O, keep IV fluid, check electrolytes Infectious Disease: check cultures, continue antibiotics, other - wbc rising Gastrointestinal: hold feedings, other - npo as long s pt needs Levophed Endocrine: monitor blood sugar Hematologic: monitor H/H, transfuse if hgb<8.5 Neurologic: PRN Ativan, keep patient comfortable Affect: PRN ativan Prophylaxis: Protonix, Heparin Notes Reviewed: [facility] specialist, renal Discussed with: nurses, consultants, case management assistantcustoms brokerage manager - Objective Last 24 Hour Vital Signs Date Time Temp Pulse Resp B/P (MAP) Pulse Ox O2 Delivery O2 Flow Rate FiO2 03/24/17 09:00 93 19 124/87 100 Nasal Cannula 3.0 03/24/17 08:30 93 20 115/87 100 Nasal Cannula 3.0 03/24/17 08:00 98.7 83 20 97/50 100 Nasal Cannula 3.0 03/24/17 08:00 99 03/24/17 07:30 99 20 101/45 100 Nasal Cannula 3.0 03/24/17 07:23 Nasal Cannula 3.0 03/24/17 07:23 100 Nasal Cannula 3.0 03/24/17 07:15 66/45 03/24/17 07:00 94 21 84/70 100 Nasal Cannula 3.0 03/24/17 06:45 91 21 95/48 100 Nasal Cannula 3.0 03/24/17 06:34 93 21 97/45 100 Non-Rebreather 100 03/24/17 06:15 100 22 105/48 100 Non-Rebreather 100 03/24/17 06:00 100 22 101/38 100 Non-Rebreather 100 03/24/17 05:45 92 25 76/58 99 Non-Rebreather 100 03/24/17 05:30 92 25 99/43 99 Non-Rebreather 100 03/24/17 05:15 89 25 84/47 97 Non-Rebreather 100 03/24/17 05:00 92 25 80/58 97 Non-Rebreather 100 03/24/17 04:45 91 24 101/56 97 Non-Rebreather 100 03/24/17 04:30 91 22 92/46 97 Non-Rebreather 100 03/24/17 04:28 84/37 03/24/17 04:15 94 24 84/37 98 Non-Rebreather 100 03/24/17 04:00 94 03/24/17 04:00 98.9 91 25 117/88 98 Non-Rebreather 100 03/24/17 03:45 91 25 104/83 100 Non-Rebreather 100 03/24/17 03:30 93 30 112/99 100 Non-Rebreather 100 03/24/17 03:15 91 30 118/80 100 Non-Rebreather 100 03/24/17 03:00 91 24 143/126 100 Non-Rebreather 100 03/24/17 02:45 91 24 95/51 100 Non-Rebreather 100 03/24/17 02:30 99 22 95/42 100 Non-Rebreather 100 03/24/17 02:15 90 20 94/45 100 Non-Rebreather 100 03/24/17 02:00 90 22 94/43 100 Non-Rebreather 100 03/24/17 01:45 93 22 69/76 100 Non-Rebreather 100 03/24/17 01:30 94 22 152/35 100 Non-Rebreather 100 03/24/17 01:27 85/39 03/24/17 01:15 100 23 85/39 100 Non-Rebreather 100 03/24/17 01:00 94 21 88/42 100 Non-Rebreather 100 03/24/17 00:45 95 20 86/42 93 Non-Rebreather 100 03/24/17 00:30 94 21 85/36 88 Non-Rebreather 100 03/24/17 00:15 94 21 87/44 88 Non-Rebreather 100 03/24/17 00:00 101 03/24/17 00:00 98.6 93 22 67/37 90 Nasal Cannula 4.0 03/23/17 23:45 94 23 69/31 91 Nasal Cannula 4.0 03/23/17 23:30 94 23 54/41 95 Nasal Cannula 4.0 03/23/17 23:15 95 23 89/68 95 Nasal Cannula 4.0 03/23/17 23:00 98 23 132/70 97 Nasal Cannula 4.0 03/23/17 22:45 97 24 176/141 99 Non-Rebreather 100 03/23/17 22:30 96 23 103/88 99 Non-Rebreather 100 03/23/17 22:15 98 23 103/86 91 Non-Rebreather 100 03/23/17 22:00 98.6 100 33 83/27 99 Non-Rebreather 100 03/23/17 21:48 98.6 03/23/17 21:47 60/28 03/23/17 21:45 98 22 83/27 99 Non-Rebreather 100 03/23/17 21:30 95 23 65/28 99 Non-Rebreather 100 03/23/17 21:15 99 28 54/26 94 Non-Rebreather 100 03/23/17 21:00 100 29 78/41 99 Non-Rebreather 100 03/23/17 20:45 101 30 80/40 99 Non-Rebreather 100 03/23/17 20:30 101 30 60/28 99 Non-Rebreather 100 03/23/17 20:00 101 03/23/17 20:00 100.6 101 31 80/40 99 Non-Rebreather 100 03/23/17 19:30 95 Non-Rebreather 15.0 100 03/23/17 19:30 99 31 85/41 99 Non-Rebreather 100 03/23/17 19:30 Non-Rebreather 15.0 100 03/23/17 19:00 100 29 84/47 98 Non-Rebreather 100 03/23/17 18:30 103 31 103/74 97 Non-Rebreather 100 03/23/17 18:00 104 30 94/50 96 Non-Rebreather 100 03/23/17 17:30 105 31 92/49 96 Non-Rebreather 100 03/23/17 17:00 106 31 83/41 98 Non-Rebreather 100 03/23/17 16:30 106 31 84/44 96 Non-Rebreather 100 03/23/17 16:00 103 03/23/17 16:00 99.5 103 31 90/41 99 Non-Rebreather 100 03/23/17 15:30 102 30 85/44 99 Non-Rebreather 100 03/23/17 15:00 99 30 89/45 99 Non-Rebreather 100 03/23/17 14:30 98 30 73/40 99 Non-Rebreather 100 03/23/17 14:00 99 29 83/58 99 Non-Rebreather 100 03/23/17 13:30 98 27 80/45 97 Non-Rebreather 100 03/23/17 13:00 100 26 85/47 97 Non-Rebreather 100 03/23/17 12:30 96 25 96/80 97 Non-Rebreather 100 03/23/17 12:00 96 29 87/44 98 Non-Rebreather 100 03/23/17 12:00 91 03/23/17 11:30 94 30 80/42 98 Non-Rebreather 100 03/23/17 11:00 94 30 107/72 97 Non-Rebreather 100 03/23/17 10:30 95 30 86/72 96 Non-Rebreather 100 03/23/17 10:00 91 29 92/73 96 Non-Rebreather 100 Status: sedated Condition: critical HEENT: atraumatic Neck: full ROM Lungs: clear Heart: HR/BP stable, regular Abdomen: soft, non-tender, feeding tube Extremities: no C/C/E, edema Decubiti: location Micro: Microbiology Date/Time Source Procedure Growth Status 03/22/17 17:42 Blood Blood Culture - Preliminary NO GROWTH AFTER 24 HOURS Resulted 03/22/17 17:30 Blood Blood Culture - Preliminary NO GROWTH AFTER 24 HOURS Resulted 03/22/17 17:42 Urine,Clean Catch Urine Culture - Preliminary Gram Negative Bacillus 1 Resulted 03/22/17 23:29 Foot Left Gram Stain - Final Resulted 03/22/17 23:29 Foot Left Wound Culture Pending Resulted 03/22/17 23:29 Abdomen Gram Stain - Final Resulted 03/22/17 23:29 Abdomen Wound Culture Pending Resulted 03/22/17 17:42 Rectum VRE Culture - Final NO VANCOMYCIN RESISTANT ENTEROCOCCUS ... Complete Accucheck: 166 Critical Care - Subjective ROS Limited/Unobtainable: Yes ICU Day: 2 Condition: critical FI02: 100 Fluids: NS 125 CC/hour Drips: Levophed I&O: Intake and Output 03/24/17 03/25/17 19:00 07:00 Intake Total 514.5 ml Output Total 80 ml Balance 434.5 ml IV Total 474.5 ml Other 40 ml Output Urine Total 80 ml CXR: increasing RLL infiltrate and effusion Labs: Laboratory Tests Test 03/23/17 11:10 03/23/17 12:00 03/23/17 16:35 03/23/17 20:56 Lactic Acid Level 7.60 mmol/L (0.66-2.22) H 6.30 mmol/L (0.66-2.22) H 4.20 mmol/L (0.66-2.22) H Urine Color Yellow Urine Appearance Turbid Urine pH 5 (4.5-8.0) Urine Specific [place] 1.005 (1.005-1.035) Urine Protein 3+ (NEGATIVE) H Urine Glucose (UA) Negative (NEGATIVE) Urine Ketones Negative (NEGATIVE) Urine Occult Blood 5+ (NEGATIVE) H Urine Nitrite Positive (NEGATIVE) H Urine Bilirubin 1+ (NEGATIVE) H Urine Ictotest Negative Urine Urobilinogen 1 MG/DL (0.0-1.0) H Urine Leukocyte Esterase 3+ (NEGATIVE) H Urine RBC Tntc /HPF (0 - 0) H Urine WBC 30-40 /HPF (0 - 0) H Urine Squamous Epithelial Cells Few /LPF (NONE/OCC) Urine Bacteria Moderate /HPF (NONE) H Urine Granular Casts 0-2 /LPF (NONE) H Urine Eosinophils None seen Urine Random Sodium 126 mmol/L Urine Potassium Timed 13 mmol/L Test 03/23/17 21:05 03/24/17 05:00 Arterial Blood pH 7.446 (7.350-7.450) Arterial Blood Partial Pressure CO2 30.5 mmHg (35.0-45.0) L Arterial Blood Partial Pressure O2 204.2 mmHg (75.0-100.0) H Arterial Blood HCO3 20.5 mmol/L (22.0-26.0) L Arterial Blood Oxygen Saturation 99.0 % (92.0-98.0) H Arterial Blood Base Excess -2.5 Myron Test Positive White Blood Count 62.6 K/UL (4.8-10.8) #*H Red Blood Count 4.35 M/UL (4.70-6.10) L Hemoglobin 13.4 G/DL (14.2-18.0) L Hematocrit 40.3 % (42.0-52.0) L Mean Corpuscular Volume 93 FL (80-99) Mean Corpuscular Hemoglobin 30.9 PG (27.0-31.0) Mean Corpuscular Hemoglobin Concent 33.3 G/DL (32.0-36.0) Red Cell Distribution Width 15.9 % (11.6-14.8) H Platelet Count 136 K/UL (150-450) L Mean Platelet Volume 11.4 FL (6.5-10.1) H Neutrophils (%) (Auto) % (45.0-75.0) Lymphocytes (%) (Auto) % (20.0-45.0) Monocytes (%) (Auto) % (1.0-10.0) Eosinophils (%) (Auto) % (0.0-3.0) Basophils (%) (Auto) % (0.0-2.0) Differential Total Cells Counted 100 Neutrophils % (Manual) 72 % (45-75) Lymphocytes % (Manual) 1 % (20-45) L Monocytes % (Manual) 4 % (1-10) Eosinophils % (Manual) 1 % (0-3) Basophils % (Manual) 0 % (0-2) Metamyelocytes % 3 % (0-0) H Myelocytes % 1 % (0-0) H Band Neutrophils 18 % (0-8) H Platelet Estimate Decreased L Platelet Morphology Normal Anisocytosis 1+ Sodium Level 139 mEQ/L (135-145) Potassium Level 5.3 mEQ/L (3.4-4.9) H Chloride Level 97 mEQ/L (98-107) L Carbon Dioxide Level 20 mEQ/L (20-30) Anion Gap 22 (5-15) H Blood Urea Nitrogen 66 mg/dL (7-23) H Creatinine 2.5 mg/dL (0.7-1.2) #H Estimat Glomerular Filtration Rate mL/min (>60) Glucose Level 170 mg/dL (74-106) H Lactic Acid Level 6.60 mmol/L (0.66-2.22) H Calcium Level 8.4 mg/dL (8.6-10.2) L Phosphorus Level 5.5 mg/dL (2.5-4.8) H Magnesium Level 2.3 mg/dL (1.7-2.5) Iron Level 20 ug/dL (59-158) L Total Iron Binding Capacity 236 ug/dL (250-400) L Percent Iron Saturation 8 % (15-50) L Unsaturated Iron Binding 216 ug/dL (112-346) Total Bilirubin 1.3 mg/dL (0.0-1.2) H Direct Bilirubin 0.7 mg/dL (0.1-0.3) H Aspartate Amino Transf (AST/SGOT) 867 U/L (5-40) H Alanine Aminotransferase (ALT/SGPT) 864 U/L (3-41) H Alkaline Phosphatase 86 U/L (40-129) Ammonia 46 umol/L (16-60) Lactate Dehydrogenase 761 U/L (135-230) H Total Protein 6.1 g/dL (6.6-8.7) L Albumin 2.7 g/dL (3.5-5.2) L Globulin 3.4 g/dL Albumin/Globulin Ratio 0.7 (1.0-2.7) L Carcinoembryonic Antigen 26.0 ng/mL H Prostate Specific Antigen 149.3 ng/mL (< 4.5) H VERITO QUEZADA Mar 24, 2017 09:54
--- NOTE | 2017-03-24 10:00 | Consultation ---
DATE OF CONSULTATION: 03/23/2017 HEMATOLOGY/ONCOLOGY CONSULTATION CONSULTING PHYSICIAN: Steven Rendon M.D. REQUESTING PHYSICIAN: Sary Oakes M.D. REASON FOR CONSULTATION: 1. Leukocytosis. 2. Leukemoid reaction. CURRENT COMPLAINT AND HISTORY OF PRESENT ILLNESS: Dear Dr. Oakes: TODAY, I HAD AN OPPORTUNITY TO SEE ONE OF YOUR PATIENTS, WHO YOU ARE WELL AWARE IS A 76 YEARS OLD DELIGHTFUL GENTLEMAN WITH PAST MEDICAL HISTORY REMARKABLE FOR: 1. COPD. 2. Depression. 3. Hypernatremia. 4. Dehydration. 5. Cachexia. 6. Dysphagia. 7. Status post G-tube placement. 8. Dementia. 9. Seizure. 10. Sepsis. 11. Septic shock. 12. UTI. The patient ended up in emergency room of [facility] with admitting diagnosis of sepsis. The patient gives history of coronary artery disease, hypertension, COPD, dementia, and Alzheimer's. During evaluation, it was found the patient developed significant leukocytosis, leukemoid reaction. My service was called to handle issue of blood dyscrasias. PAST MEDICAL HISTORY: 1. History of COPD. 2. Coronary artery disease. 3. Hypertension. 4. Dementia. 5. Alzheimer's. 6. History of sepsis. 7. History of tachycardia. 8. History of CVA. 9. Dysphagia. 10. Status post G-tube placement. 11. Encephalopathy. 12. History of seizure. 13. Weakness. 14. Failure to thrive. MEDICATIONS: 1. Prilosec. 2. Dextrose. 3. Gluconate. 4. Tylenol. 5. Morphine. 6. Lorazepam. 7. Zofran. 8. Clonidine. 9. Heparin subcutaneous. ALLERGIES: NKDA. SOCIAL HISTORY: No history of smoking. No history of alcohol abuse. No history of illicit drug use. FAMILY HISTORY: Noncontributory. REVIEW OF SYSTEMS: Unobtainable secondary to the patient's condition. PHYSICAL EXAMINATION: VITAL SIGNS: T-max 102 degrees, respiratory rate 16, pulse 104, and blood pressure 130/80. HEENT: Head is normocephalic and atraumatic. NECK: Supple. No thyroid enlargement. No lymphadenopathy. LUNGS: Decreased breath sounds bilaterally. A few rhonchi in the base. HEART: S1 and S2 regular. ABDOMEN: Soft and benign. No organomegaly present. Bowel sounds present. EXTREMITIES: No cyanosis, clubbing, or edema. LABORATORY DATA: WBC 23.1, hemoglobin 14.7, hematocrit 44.6, and platelets 166,000. Creatinine 1.5. Total bilirubin 1.5, AST 69, ALT 62. IMPRESSION: 1. Leukocytosis with left shift. 2. Leukemoid reaction. 3. Polycythemia, reactive, secondary to sepsis. 4. Erythrocytosis, reactive. 5. Bandemia. 6. Acute renal insufficiency. 7. Transaminitis. 8. Bilirubinemia. 9. Encephalopathy. 10. Sepsis. 11. Septic shock. 12. Hypertension. 13. Chronic obstructive pulmonary disease exacerbation. 14. Respiratory failure. 15. Dysphagia. 16. Gastrostomy tube placement. 17. History of cerebral infarct, history of cerebrovascular accident. 18. Dementia. 19. Alzheimer's. 20. Seizure. 21. Weakness. 22. Failure to thrive. RECOMMENDATIONS: 1. Watch count. 2. Watch coagulopathy. 3. Antibiotic IV. 4. Heparin subcutaneous. 5. PRBC transfusion p.r.n. basis. 6. Respiratory treatment. 7. Infectious Disease followup. 8. Pulmonary followup. 9. Cardiology followup. 10. Skin care. 11. Nutrition. 12. Close followup. 13. Continue current treatment. DEAR DR. OAKES: I greatly appreciate the opportunity to participate in care of one of your patients. It is a privilege to me to be on this interesting and challenging case. Steven Rendon MD DR: Adam JOB#: [id number] CC:
[2017-03-24] MEDS: Cefepime HCl 2 GM in D5W 110 ML IVPB SCH (10:03)
[2017-03-24 10:05] LABS: ABG BASE EXCESS -4.1; ABG PCO2 30.4 mmHg (35.0-45.0)
[2017-03-24 10:06] LABS: ABG ALLEN TEST POSITIVE
--- NOTE | 2017-03-24 11:05 | Diagnostic Imaging Report ---
Indication: Line placement Comparison: 03/23/17 A single view chest radiograph was obtained. Findings: Fracture line is projected over the SVC. Heart size is stable. There is basilar atelectasis again demonstrated. Impression: Jugular line in good position. No pneumothorax
--- NOTE | 2017-03-24 11:16 | Diagnostic Imaging Report ---
Indication: Dyspnea Comparison: 03/23/17 A single view chest radiograph was obtained. Findings: Mild basilar atelectasis demonstrated. Lung volumes remain low. Right jugular line again demonstrated. Heart size is stable. Impression: No waste/materials exchange specialist the last day
[2017-03-24] MEDS ORDERED: NS 275ml ONE (13:59)
[2017-03-24] MEDS ORDERED: 1/2 NS 1000ml IV ONE (14:00)
[2017-03-24] MEDS: Piperacillin/Tazobactam 3.375 GM in D5W 110 ML IVPB SCH ×2 (14:38→21:49)
--- NOTE | 2017-03-24 14:39 | Infectious Diseases Prog Note ---
Assessment/Plan Problems: (1) UTI (urinary tract infection) Assessment & Plan: due to Citrobacter freundii negative rods, on cefepime empirically pending urine culture (2) Sepsis Assessment & Plan: not improving on cefepime and clindamycin , will switch cefepime to zosyn and levaquin , and continue clindamycin empirically pending culture results (3) Dehydration Assessment & Plan: continue ivf , monitor UOP, and electrolytes (4) ATN (acute tubular necrosis) Assessment & Plan: suspect due to sepsis, continue hydration, monitor UOP, renal is following (5) Suprapubic catheter Assessment & Plan: continue local care (6) Gross hematuria Assessment & Plan: rule out stone VS tumor, need renal US . Subjective ROS Limited/Unobtainable: Yes Allergies: Coded Allergies: No Known Allergies (Verified , 09/26/12) Subjective unresponsive, lying in bed. afebrile Objective Vital Signs Last 24 Hour Vital Signs Date Time Temp Pulse Resp B/P (MAP) Pulse Ox O2 Delivery O2 Flow Rate FiO2 03/24/17 14:30 95 23 106/54 100 Nasal Cannula 3.0 03/24/17 14:00 96 24 106/67 100 Nasal Cannula 3.0 03/24/17 13:30 99 22 99/42 100 Nasal Cannula 3.0 03/24/17 13:00 97 23 92/47 100 Nasal Cannula 3.0 03/24/17 12:30 95 23 92/47 100 Nasal Cannula 3.0 03/24/17 12:00 98 03/24/17 12:00 98.4 97 20 119/91 100 Nasal Cannula 3.0 03/24/17 11:30 95 19 119/62 100 Nasal Cannula 3.0 03/24/17 11:00 98 18 96/51 100 Nasal Cannula 3.0 03/24/17 10:30 98 19 97/65 100 Nasal Cannula 3.0 03/24/17 10:06 99/42 03/24/17 10:00 88 19 99/60 100 Nasal Cannula 3.0 03/24/17 09:30 92 19 105/80 100 Nasal Cannula 3.0 03/24/17 09:00 93 19 124/87 100 Nasal Cannula 3.0 03/24/17 08:30 93 20 115/87 100 Nasal Cannula 3.0 03/24/17 08:00 98.7 83 20 97/50 100 Nasal Cannula 3.0 03/24/17 08:00 99 03/24/17 07:30 99 20 101/45 100 Nasal Cannula 3.0 03/24/17 07:23 Nasal Cannula 3.0 03/24/17 07:23 100 Nasal Cannula 3.0 03/24/17 07:15 66/45 03/24/17 07:00 94 21 84/70 100 Nasal Cannula 3.0 03/24/17 06:45 91 21 95/48 100 Nasal Cannula 3.0 03/24/17 06:34 93 21 97/45 100 Non-Rebreather 100 03/24/17 06:15 100 22 105/48 100 Non-Rebreather 100 03/24/17 06:00 100 22 101/38 100 Non-Rebreather 100 03/24/17 05:45 92 25 76/58 99 Non-Rebreather 100 03/24/17 05:30 92 25 99/43 99 Non-Rebreather 100 03/24/17 05:15 89 25 84/47 97 Non-Rebreather 100 03/24/17 05:00 92 25 80/58 97 Non-Rebreather 100 03/24/17 04:45 91 24 101/56 97 Non-Rebreather 100 03/24/17 04:30 91 22 92/46 97 Non-Rebreather 100 03/24/17 04:28 84/37 03/24/17 04:15 94 24 84/37 98 Non-Rebreather 100 03/24/17 04:00 94 03/24/17 04:00 98.9 91 25 117/88 98 Non-Rebreather 100 03/24/17 03:45 91 25 104/83 100 Non-Rebreather 100 03/24/17 03:30 93 30 112/99 100 Non-Rebreather 100 03/24/17 03:15 91 30 118/80 100 Non-Rebreather 100 03/24/17 03:00 91 24 143/126 100 Non-Rebreather 100 03/24/17 02:45 91 24 95/51 100 Non-Rebreather 100 03/24/17 02:30 99 22 95/42 100 Non-Rebreather 100 03/24/17 02:15 90 20 94/45 100 Non-Rebreather 100 03/24/17 02:00 90 22 94/43 100 Non-Rebreather 100 03/24/17 01:45 93 22 69/76 100 Non-Rebreather 100 03/24/17 01:30 94 22 152/35 100 Non-Rebreather 100 03/24/17 01:27 85/39 03/24/17 01:15 100 23 85/39 100 Non-Rebreather 100 03/24/17 01:00 94 21 88/42 100 Non-Rebreather 100 03/24/17 00:45 95 20 86/42 93 Non-Rebreather 100 03/24/17 00:30 94 21 85/36 88 Non-Rebreather 100 03/24/17 00:15 94 21 87/44 88 Non-Rebreather 100 03/24/17 00:00 101 03/24/17 00:00 98.6 93 22 67/37 90 Nasal Cannula 4.0 03/23/17 23:45 94 23 69/31 91 Nasal Cannula 4.0 03/23/17 23:30 94 23 54/41 95 Nasal Cannula 4.0 03/23/17 23:15 95 23 89/68 95 Nasal Cannula 4.0 03/23/17 23:00 98 23 132/70 97 Nasal Cannula 4.0 03/23/17 22:45 97 24 176/141 99 Non-Rebreather 100 03/23/17 22:30 96 23 103/88 99 Non-Rebreather 100 03/23/17 22:15 98 23 103/86 91 Non-Rebreather 100 03/23/17 22:00 98.6 100 33 83/27 99 Non-Rebreather 100 03/23/17 21:48 98.6 03/23/17 21:47 60/28 03/23/17 21:45 98 22 83/27 99 Non-Rebreather 100 03/23/17 21:30 95 23 65/28 99 Non-Rebreather 100 03/23/17 21:15 99 28 54/26 94 Non-Rebreather 100 03/23/17 21:00 100 29 78/41 99 Non-Rebreather 100 03/23/17 20:45 101 30 80/40 99 Non-Rebreather 100 03/23/17 20:30 101 30 60/28 99 Non-Rebreather 100 03/23/17 20:00 101 03/23/17 20:00 100.6 101 31 80/40 99 Non-Rebreather 100 03/23/17 19:30 95 Non-Rebreather 15.0 100 03/23/17 19:30 99 31 85/41 99 Non-Rebreather 100 03/23/17 19:30 Non-Rebreather 15.0 100 03/23/17 19:00 100 29 84/47 98 Non-Rebreather 100 03/23/17 18:30 103 31 103/74 97 Non-Rebreather 100 03/23/17 18:00 104 30 94/50 96 Non-Rebreather 100 03/23/17 17:30 105 31 92/49 96 Non-Rebreather 100 03/23/17 17:00 106 31 83/41 98 Non-Rebreather 100 03/23/17 16:30 106 31 84/44 96 Non-Rebreather 100 03/23/17 16:00 103 03/23/17 16:00 99.5 103 31 90/41 99 Non-Rebreather 100 03/23/17 15:30 102 30 85/44 99 Non-Rebreather 100 03/23/17 15:00 99 30 89/45 99 Non-Rebreather 100 Height (Feet): 5 Height (Inches): 5.00 Weight (Pounds): 150 General Appearance: WD/WN, no acute distress HEENT: normocephalic, atraumatic, anicteric Respiratory/Chest: chest wall non-tender, lungs clear, normal breath sounds, no respiratory distress, no accessory muscle use Cardiovascular: normal peripheral pulses, normal rate, regular rhythm, no gallop/murmur, no JVD Abdomen: normal bowel sounds, soft, non tender, no organomegaly, non distended , no mass Extremities: no cyanosis, no clubbing Skin: no rash, no lesions Neurologic/Psychiatric: unresponsiveness Lymphatic: no neck adenopathy, no groin adenopathy Microbiology Date/Time Source Procedure Growth Status 03/22/17 17:42 Blood Blood Culture - Preliminary NO GROWTH AFTER 24 HOURS Resulted 03/22/17 17:30 Blood Blood Culture - Preliminary NO GROWTH AFTER 24 HOURS Resulted 03/23/17 12:00 Urine,Clean Catch Urine Culture - Preliminary NO GROWTH Resulted 03/22/17 17:42 Urine,Clean Catch Urine Culture - Preliminary Gram Negative Bacillus 1 Resulted 03/22/17 23:29 Foot Left Gram Stain - Final Resulted 03/22/17 23:29 Wound Culture - Preliminary Staphylococcus Aureus Gram Positive Cocci Resulted 03/22/17 23:29 Abdomen Gram Stain - Final Resulted 03/22/17 23:29 Abdomen Wound Culture - Preliminary NO GROWTH AFTER 24 HOURS Resulted 03/22/17 17:42 Rectum VRE Culture - Final NO VANCOMYCIN RESISTANT ENTEROCOCCUS ... Complete Laboratory Tests Test 03/23/17 16:35 03/23/17 20:56 03/23/17 21:05 03/24/17 05:00 Lactic Acid Level 6.30 mmol/L (0.66-2.22) H 4.20 mmol/L (0.66-2.22) H 6.60 mmol/L (0.66-2.22) H Arterial Blood pH 7.446 (7.350-7.450) Arterial Blood Partial Pressure CO2 30.5 mmHg (35.0-45.0) L Arterial Blood Partial Pressure O2 204.2 mmHg (75.0-100.0) H Arterial Blood HCO3 20.5 mmol/L (22.0-26.0) L Arterial Blood Oxygen Saturation 99.0 % (92.0-98.0) H Arterial Blood Base Excess -2.5 Myron Test Positive White Blood Count 62.6 K/UL (4.8-10.8) #*H Red Blood Count 4.35 M/UL (4.70-6.10) L Hemoglobin 13.4 G/DL (14.2-18.0) L Hematocrit 40.3 % (42.0-52.0) L Mean Corpuscular Volume 93 FL (80-99) Mean Corpuscular Hemoglobin 30.9 PG (27.0-31.0) Mean Corpuscular Hemoglobin Concent 33.3 G/DL (32.0-36.0) Red Cell Distribution Width 15.9 % (11.6-14.8) H Platelet Count 136 K/UL (150-450) L Mean Platelet Volume 11.4 FL (6.5-10.1) H Neutrophils (%) (Auto) % (45.0-75.0) Lymphocytes (%) (Auto) % (20.0-45.0) Monocytes (%) (Auto) % (1.0-10.0) Eosinophils (%) (Auto) % (0.0-3.0) Basophils (%) (Auto) % (0.0-2.0) Differential Total Cells Counted 100 Neutrophils % (Manual) 72 % (45-75) Lymphocytes % (Manual) 1 % (20-45) L Monocytes % (Manual) 4 % (1-10) Eosinophils % (Manual) 1 % (0-3) Basophils % (Manual) 0 % (0-2) Metamyelocytes % 3 % (0-0) H Myelocytes % 1 % (0-0) H Band Neutrophils 18 % (0-8) H Platelet Estimate Decreased L Platelet Morphology Normal Anisocytosis 1+ Sodium Level 139 mEQ/L (135-145) Potassium Level 5.3 mEQ/L (3.4-4.9) H Chloride Level 97 mEQ/L (98-107) L Carbon Dioxide Level 20 mEQ/L (20-30) Anion Gap 22 (5-15) H Blood Urea Nitrogen 66 mg/dL (7-23) H Creatinine 2.5 mg/dL (0.7-1.2) #H Estimat Glomerular Filtration Rate mL/min (>60) Glucose Level 170 mg/dL (74-106) H Calcium Level 8.4 mg/dL (8.6-10.2) L Phosphorus Level 5.5 mg/dL (2.5-4.8) H Magnesium Level 2.3 mg/dL (1.7-2.5) Iron Level 20 ug/dL (59-158) L Total Iron Binding Capacity 236 ug/dL (250-400) L Percent Iron Saturation 8 % (15-50) L Unsaturated Iron Binding 216 ug/dL (112-346) Total Bilirubin 1.3 mg/dL (0.0-1.2) H Direct Bilirubin 0.7 mg/dL (0.1-0.3) H Aspartate Amino Transf (AST/SGOT) 867 U/L (5-40) H Alanine Aminotransferase (ALT/SGPT) 864 U/L (3-41) H Alkaline Phosphatase 86 U/L (40-129) Ammonia 46 umol/L (16-60) Lactate Dehydrogenase 761 U/L (135-230) H Total Protein 6.1 g/dL (6.6-8.7) L Albumin 2.7 g/dL (3.5-5.2) L Globulin 3.4 g/dL Albumin/Globulin Ratio 0.7 (1.0-2.7) L Carcinoembryonic Antigen 26.0 ng/mL H Prostate Specific Antigen 149.3 ng/mL (< 4.5) H Test 03/24/17 10:00 03/24/17 11:50 Arterial Blood pH 7.419 (7.350-7.450) Arterial Blood Partial Pressure CO2 30.4 mmHg (35.0-45.0) L Arterial Blood Partial Pressure O2 < 64.0 mmHg (75.0-100.0) L Arterial Blood HCO3 19.2 mmol/L (22.0-26.0) L Arterial Blood Oxygen Saturation 91.3 % (92.0-98.0) L Arterial Blood Base Excess -4.1 Myron Test Positive Lactic Acid Level 2.60 mmol/L (0.66-2.22) H Current Medications Medications (Trade) Dose Ordered Sig/Matt Route PRN Reason Start Time Stop Time Status Last Admin Dose Admin Acetaminophen (Tylenol) 650 mg Q4H PRN GT Mild Pain/Temp > 100.5 03/23/17 06:45 04/21/17 22:44 Acetaminophen (Tylenol) 650 mg Q4H PRN ORAL FEVER 03/23/17 10:15 04/22/17 10:14 03/23/17 19:34 Acetaminophen (Tylenol) 650 mg Q4H PRN ORAL Mild Pain (Pain Scale 1-3) 03/23/17 10:15 04/22/17 10:14 Chlorhexidine Gluconate (Mari-Hex 2%) 1 applic DAILY TOPIC 03/23/17 21:00 04/22/17 20:59 03/24/17 08:44 Clindamycin HCl/ Dextrose 50 ml @ 100 mls/hr Q8H IV 03/23/17 10:00 03/30/17 09:59 03/24/17 10:02 Clonidine HCl (Catapres) 0.1 mg Q4H PRN ORAL For High Blood Pressure 03/23/17 07:00 04/22/17 06:59 Lansoprazole (Prevacid) 30 mg DAILY ORAL 03/24/17 09:00 04/23/17 08:59 Levofloxacin 50 ml @ 50 mls/hr Q24H IVPB 03/24/17 12:00 03/31/17 11:59 03/24/17 12:08 Lorazepam (Ativan 2mg/ml 1ml) 0.5 mg Q4H PRN IV For Anxiety 03/23/17 10:15 03/30/17 10:14 Morphine Sulfate (Morphine Sulfate) 2 mg Q6H PRN IVP Moderate Pain (Pain Scale 4-6) 03/23/17 10:15 03/30/17 10:14 Norepinephrine Bitartrate 4 mg/ Dextrose 250 ml @ 0 mls/hr Q24H IV 03/23/17 21:30 04/22/17 21:29 03/24/17 10:06 Ondansetron HCl (Zofran) 4 mg Q6H PRN IVP Nausea & Vomiting 03/23/17 10:15 04/22/17 10:14 Piperacillin Sod/ Tazobactam Sod 3.375 gm/Dextrose 110 ml @ 27.5 mls/hr EVERY 8 HOURS IVPB 03/24/17 14:00 03/29/17 13:59 Polyethylene Glycol (Miralax) 17 gm DAILY PRN ORAL Constipation 03/23/17 10:15 04/22/17 10:14 Sodium Chloride 1,000 ml @ 125 mls/hr Q8H IV 03/23/17 21:00 04/22/17 20:59 03/24/17 12:08 Jose Juarez M.D. Mar 24, 2017 14:39
--- NOTE | 2017-03-24 20:46 | General Progress Note ---
Assessment/Plan Problem List: (1) Dehydration ICD Codes: E86.0 - Dehydration SNOMED: 98514361 (2) Dementia ICD Codes: F03.90 - Unspecified dementia without behavioral disturbance SNOMED: 55378710 (3) Seizure ICD Codes: R56.9 - Unspecified convulsions SNOMED: 14797607 (4) Septic shock ICD Codes: A41.9 - Sepsis, unspecified organism; R65.21 - Severe sepsis with septic shock SNOMED: 23654862 (5) UTI (urinary tract infection) ICD Codes: N39.0 - Urinary tract infection, site not specified SNOMED: 76944892 Qualifiers: Qualified Codes: N30.01 - Acute cystitis with hematuria Status: progressing, deteriorating Assessment/Plan severe leukocytosis septic shock elevated lft will discuss w id and hem/onc and gi re above findings poor prognosis deterioating rapidly abx per id arf Subjective ROS Limited/Unobtainable: Yes Allergies: Coded Allergies: No Known Allergies (Verified , 09/26/12) Objective Last 24 Hour Vital Signs Date Time Temp Pulse Resp B/P (MAP) Pulse Ox O2 Delivery O2 Flow Rate FiO2 03/24/17 20:19 96 Nasal Cannula 3.0 03/24/17 20:19 Nasal Cannula 3.0 03/24/17 20:00 98 20 85/59 96 Nasal Cannula 3.0 03/24/17 19:49 102/48 03/24/17 19:30 98.3 97 33 107/80 97 Nasal Cannula 3.0 03/24/17 19:00 93 20 92/51 100 Nasal Cannula 3.0 03/24/17 18:30 94 20 97/49 100 Nasal Cannula 3.0 03/24/17 18:00 90 21 90/47 100 Nasal Cannula 3.0 03/24/17 17:30 88 20 92/53 100 Nasal Cannula 3.0 03/24/17 17:00 99 21 104/88 100 Nasal Cannula 3.0 03/24/17 16:30 97 21 119/63 100 Nasal Cannula 3.0 03/24/17 16:00 99 03/24/17 16:00 98.1 99 20 111/83 100 Nasal Cannula 3.0 03/24/17 15:30 84 21 94/58 100 Nasal Cannula 3.0 03/24/17 15:00 90 23 90/53 100 Nasal Cannula 3.0 03/24/17 14:39 93/50 03/24/17 14:30 95 23 106/54 100 Nasal Cannula 3.0 03/24/17 14:00 96 24 106/67 100 Nasal Cannula 3.0 03/24/17 13:30 99 22 99/42 100 Nasal Cannula 3.0 03/24/17 13:00 97 23 92/47 100 Nasal Cannula 3.0 03/24/17 12:30 95 23 92/47 100 Nasal Cannula 3.0 03/24/17 12:00 98 03/24/17 12:00 98.4 97 20 119/91 100 Nasal Cannula 3.0 03/24/17 11:30 95 19 119/62 100 Nasal Cannula 3.0 03/24/17 11:00 98 18 96/51 100 Nasal Cannula 3.0 03/24/17 10:30 98 19 97/65 100 Nasal Cannula 3.0 03/24/17 10:06 99/42 03/24/17 10:00 88 19 99/60 100 Nasal Cannula 3.0 03/24/17 09:30 92 19 105/80 100 Nasal Cannula 3.0 03/24/17 09:00 93 19 124/87 100 Nasal Cannula 3.0 03/24/17 08:30 93 20 115/87 100 Nasal Cannula 3.0 03/24/17 08:00 98.7 83 20 97/50 100 Nasal Cannula 3.0 03/24/17 08:00 99 03/24/17 07:30 99 20 101/45 100 Nasal Cannula 3.0 03/24/17 07:23 Nasal Cannula 3.0 03/24/17 07:23 100 Nasal Cannula 3.0 03/24/17 07:15 66/45 03/24/17 07:00 94 21 84/70 100 Nasal Cannula 3.0 03/24/17 06:45 91 21 95/48 100 Nasal Cannula 3.0 03/24/17 06:34 93 21 97/45 100 Non-Rebreather 100 03/24/17 06:15 100 22 105/48 100 Non-Rebreather 100 03/24/17 06:00 100 22 101/38 100 Non-Rebreather 100 03/24/17 05:45 92 25 76/58 99 Non-Rebreather 100 03/24/17 05:30 92 25 99/43 99 Non-Rebreather 100 03/24/17 05:15 89 25 84/47 97 Non-Rebreather 100 03/24/17 05:00 92 25 80/58 97 Non-Rebreather 100 03/24/17 04:45 91 24 101/56 97 Non-Rebreather 100 03/24/17 04:30 91 22 92/46 97 Non-Rebreather 100 03/24/17 04:28 84/37 03/24/17 04:15 94 24 84/37 98 Non-Rebreather 100 03/24/17 04:00 94 03/24/17 04:00 98.9 91 25 117/88 98 Non-Rebreather 100 03/24/17 03:45 91 25 104/83 100 Non-Rebreather 100 03/24/17 03:30 93 30 112/99 100 Non-Rebreather 100 03/24/17 03:15 91 30 118/80 100 Non-Rebreather 100 03/24/17 03:00 91 24 143/126 100 Non-Rebreather 100 03/24/17 02:45 91 24 95/51 100 Non-Rebreather 100 03/24/17 02:30 99 22 95/42 100 Non-Rebreather 100 03/24/17 02:15 90 20 94/45 100 Non-Rebreather 100 03/24/17 02:00 90 22 94/43 100 Non-Rebreather 100 03/24/17 01:45 93 22 69/76 100 Non-Rebreather 100 03/24/17 01:30 94 22 152/35 100 Non-Rebreather 100 03/24/17 01:27 85/39 03/24/17 01:15 100 23 85/39 100 Non-Rebreather 100 03/24/17 01:00 94 21 88/42 100 Non-Rebreather 100 03/24/17 00:45 95 20 86/42 93 Non-Rebreather 100 03/24/17 00:30 94 21 85/36 88 Non-Rebreather 100 03/24/17 00:15 94 21 87/44 88 Non-Rebreather 100 03/24/17 00:00 101 03/24/17 00:00 98.6 93 22 67/37 90 Nasal Cannula 4.0 03/23/17 23:45 94 23 69/31 91 Nasal Cannula 4.0 03/23/17 23:30 94 23 54/41 95 Nasal Cannula 4.0 03/23/17 23:15 95 23 89/68 95 Nasal Cannula 4.0 03/23/17 23:00 98 23 132/70 97 Nasal Cannula 4.0 03/23/17 22:45 97 24 176/141 99 Non-Rebreather 100 03/23/17 22:30 96 23 103/88 99 Non-Rebreather 100 03/23/17 22:15 98 23 103/86 91 Non-Rebreather 100 03/23/17 22:00 98.6 100 33 83/27 99 Non-Rebreather 100 03/23/17 21:48 98.6 03/23/17 21:47 60/28 03/23/17 21:45 98 22 83/27 99 Non-Rebreather 100 03/23/17 21:30 95 23 65/28 99 Non-Rebreather 100 03/23/17 21:15 99 28 54/26 94 Non-Rebreather 100 03/23/17 21:00 100 29 78/41 99 Non-Rebreather 100 03/23/17 20:45 101 30 80/40 99 Non-Rebreather 100 Intake and Output 03/24/17 03/25/17 19:00 07:00 Intake Total 2967.0 ml 177.5 ml Output Total 560 ml 50 ml Balance 2407.0 ml 127.5 ml IV Total 2697.0 ml 177.5 ml Other 270 ml Output Urine Total 560 ml 50 ml # Bowel Movements 3 Laboratory Tests 03/23/17 20:56: Lactic Acid Level 4.20H 03/23/17 21:05: Arterial Blood pH 7.446, Arterial Blood Partial Pressure CO2 30.5L, Arterial Blood Partial Pressure O2 204.2H, Arterial Blood HCO3 20.5L, Arterial Blood Oxygen Saturation 99.0H, Arterial Blood Base Excess -2.5, Myron Test Positive 03/24/17 05:00: Lactic Acid Level 6.60H, White Blood Count 62.6#*H, Red Blood Count 4.35L, Hemoglobin 13.4L, Hematocrit 40.3L, Mean Corpuscular Volume 93, Mean Corpuscular Hemoglobin 30.9, Mean Corpuscular Hemoglobin Concent 33.3, Red Cell Distribution Width 15.9H, Platelet Count 136L, Mean Platelet Volume 11.4H, Neutrophils (%) (Auto) , Lymphocytes (%) (Auto) , Monocytes (%) (Auto) , Eosinophils (%) (Auto) , Basophils (%) (Auto) , Differential Total Cells Counted 100, Neutrophils % (Manual) 72, Lymphocytes % (Manual) 1L, Monocytes % ( Manual) 4, Eosinophils % (Manual) 1, Basophils % (Manual) 0, Metamyelocytes % 3H , Myelocytes % 1H, Band Neutrophils 18H, Platelet Estimate DecreasedL, Platelet Morphology Normal, Anisocytosis 1+, Sodium Level 139, Potassium Level 5.3H, Chloride Level 97L, Carbon Dioxide Level 20, Anion Gap 22H, Blood Urea Nitrogen 66H, Creatinine 2.5#H, Estimat Glomerular Filtration Rate , Glucose Level 170H, Calcium Level 8.4L, Phosphorus Level 5.5H, Magnesium Level 2.3, Iron Level 20L, Total Iron Binding Capacity 236L, Percent Iron Saturation 8L, Unsaturated Iron Binding 216, Total Bilirubin 1.3H, Direct Bilirubin 0.7H, Aspartate Amino Transf (AST/SGOT) 867H, Alanine Aminotransferase (ALT/SGPT) 864H, Alkaline Phosphatase 86, Ammonia 46, Lactate Dehydrogenase 761H, Total Protein 6.1L, Albumin 2.7L, Globulin 3.4, Albumin/Globulin Ratio 0.7L, Carcinoembryonic Antigen 26.0H, Prostate Specific Antigen 149.3H 03/24/17 10:00: Arterial Blood pH 7.419, Arterial Blood Partial Pressure CO2 30.4L, Arterial Blood Partial Pressure O2 < 64.0L, Arterial Blood HCO3 19.2L, Arterial Blood Oxygen Saturation 91.3L, Arterial Blood Base Excess -4.1, Myron Test Positive 03/24/17 11:50: Lactic Acid Level 2.60H Height (Feet): 5 Height (Inches): 5.00 Weight (Pounds): 150 Sary Oakes MD Mar 24, 2017 20:46
--- NOTE | 2017-03-24 20:52 | General Progress Note ---
Assessment/Plan Assessment/Plan Assessment - abnormal LFT - likely shocked liver (normal on 02/19) - dysphagia, s/p PEG - Sepsis, shock - s/p suprapubic - hematuria - OBS - Poor prognosis Recommendations - TF when OK'd by pulmonary - supportive care - check abd U/S - follow LFT - abx per ID Subjective Allergies: Coded Allergies: No Known Allergies (Verified , 09/26/12) Subjective Seen earlier today doing poorly on high dose pressors (+) lactic acidosis GT changed at bedside Gross hematuria via suprapubic cath noted Objective Last 24 Hour Vital Signs Date Time Temp Pulse Resp B/P (MAP) Pulse Ox O2 Delivery O2 Flow Rate FiO2 03/24/17 20:19 96 Nasal Cannula 3.0 03/24/17 20:19 Nasal Cannula 3.0 03/24/17 20:00 98 20 85/59 96 Nasal Cannula 3.0 03/24/17 19:49 102/48 03/24/17 19:30 98.3 97 33 107/80 97 Nasal Cannula 3.0 03/24/17 19:00 93 20 92/51 100 Nasal Cannula 3.0 03/24/17 18:30 94 20 97/49 100 Nasal Cannula 3.0 03/24/17 18:00 90 21 90/47 100 Nasal Cannula 3.0 03/24/17 17:30 88 20 92/53 100 Nasal Cannula 3.0 03/24/17 17:00 99 21 104/88 100 Nasal Cannula 3.0 03/24/17 16:30 97 21 119/63 100 Nasal Cannula 3.0 03/24/17 16:00 99 03/24/17 16:00 98.1 99 20 111/83 100 Nasal Cannula 3.0 03/24/17 15:30 84 21 94/58 100 Nasal Cannula 3.0 03/24/17 15:00 90 23 90/53 100 Nasal Cannula 3.0 03/24/17 14:39 93/50 03/24/17 14:30 95 23 106/54 100 Nasal Cannula 3.0 03/24/17 14:00 96 24 106/67 100 Nasal Cannula 3.0 03/24/17 13:30 99 22 99/42 100 Nasal Cannula 3.0 03/24/17 13:00 97 23 92/47 100 Nasal Cannula 3.0 03/24/17 12:30 95 23 92/47 100 Nasal Cannula 3.0 03/24/17 12:00 98 03/24/17 12:00 98.4 97 20 119/91 100 Nasal Cannula 3.0 03/24/17 11:30 95 19 119/62 100 Nasal Cannula 3.0 03/24/17 11:00 98 18 96/51 100 Nasal Cannula 3.0 03/24/17 10:30 98 19 97/65 100 Nasal Cannula 3.0 03/24/17 10:06 99/42 03/24/17 10:00 88 19 99/60 100 Nasal Cannula 3.0 03/24/17 09:30 92 19 105/80 100 Nasal Cannula 3.0 03/24/17 09:00 93 19 124/87 100 Nasal Cannula 3.0 03/24/17 08:30 93 20 115/87 100 Nasal Cannula 3.0 03/24/17 08:00 98.7 83 20 97/50 100 Nasal Cannula 3.0 03/24/17 08:00 99 03/24/17 07:30 99 20 101/45 100 Nasal Cannula 3.0 03/24/17 07:23 Nasal Cannula 3.0 03/24/17 07:23 100 Nasal Cannula 3.0 03/24/17 07:15 66/45 03/24/17 07:00 94 21 84/70 100 Nasal Cannula 3.0 03/24/17 06:45 91 21 95/48 100 Nasal Cannula 3.0 03/24/17 06:34 93 21 97/45 100 Non-Rebreather 100 03/24/17 06:15 100 22 105/48 100 Non-Rebreather 100 03/24/17 06:00 100 22 101/38 100 Non-Rebreather 100 03/24/17 05:45 92 25 76/58 99 Non-Rebreather 100 03/24/17 05:30 92 25 99/43 99 Non-Rebreather 100 03/24/17 05:15 89 25 84/47 97 Non-Rebreather 100 03/24/17 05:00 92 25 80/58 97 Non-Rebreather 100 03/24/17 04:45 91 24 101/56 97 Non-Rebreather 100 03/24/17 04:30 91 22 92/46 97 Non-Rebreather 100 03/24/17 04:28 84/37 8/30/17 04:15 94 24 84/37 98 Non-Rebreather 100 03/24/17 04:00 94 03/24/17 04:00 98.9 91 25 117/88 98 Non-Rebreather 100 03/24/17 03:45 91 25 104/83 100 Non-Rebreather 100 03/24/17 03:30 93 30 112/99 100 Non-Rebreather 100 03/24/17 03:15 91 30 118/80 100 Non-Rebreather 100 03/24/17 03:00 91 24 143/126 100 Non-Rebreather 100 03/24/17 02:45 91 24 95/51 100 Non-Rebreather 100 03/24/17 02:30 99 22 95/42 100 Non-Rebreather 100 03/24/17 02:15 90 20 94/45 100 Non-Rebreather 100 03/24/17 02:00 90 22 94/43 100 Non-Rebreather 100 03/24/17 01:45 93 22 69/76 100 Non-Rebreather 100 03/24/17 01:30 94 22 152/35 100 Non-Rebreather 100 03/24/17 01:27 85/39 03/24/17 01:15 100 23 85/39 100 Non-Rebreather 100 03/24/17 01:00 94 21 88/42 100 Non-Rebreather 100 03/24/17 00:45 95 20 86/42 93 Non-Rebreather 100 03/24/17 00:30 94 21 85/36 88 Non-Rebreather 100 03/24/17 00:15 94 21 87/44 88 Non-Rebreather 100 03/24/17 00:00 101 03/24/17 00:00 98.6 93 22 67/37 90 Nasal Cannula 4.0 03/23/17 23:45 94 23 69/31 91 Nasal Cannula 4.0 03/23/17 23:30 94 23 54/41 95 Nasal Cannula 4.0 03/23/17 23:15 95 23 89/68 95 Nasal Cannula 4.0 03/23/17 23:00 98 23 132/70 97 Nasal Cannula 4.0 03/23/17 22:45 97 24 176/141 99 Non-Rebreather 100 03/23/17 22:30 96 23 103/88 99 Non-Rebreather 100 03/23/17 22:15 98 23 103/86 91 Non-Rebreather 100 03/23/17 22:00 98.6 100 33 83/27 99 Non-Rebreather 100 03/23/17 21:48 98.6 03/23/17 21:47 60/28 03/23/17 21:45 98 22 83/27 99 Non-Rebreather 100 03/23/17 21:30 95 23 65/28 99 Non-Rebreather 100 03/23/17 21:15 99 28 54/26 94 Non-Rebreather 100 03/23/17 21:00 100 29 78/41 99 Non-Rebreather 100 Intake and Output 03/24/17 03/25/17 19:00 07:00 Intake Total 2967.0 ml 177.5 ml Output Total 560 ml 50 ml Balance 2407.0 ml 127.5 ml IV Total 2697.0 ml 177.5 ml Other 270 ml Output Urine Total 560 ml 50 ml # Bowel Movements 3 Laboratory Tests 03/23/17 20:56: Lactic Acid Level 4.20H 03/23/17 21:05: Arterial Blood pH 7.446, Arterial Blood Partial Pressure CO2 30.5L, Arterial Blood Partial Pressure O2 204.2H, Arterial Blood HCO3 20.5L, Arterial Blood Oxygen Saturation 99.0H, Arterial Blood Base Excess -2.5, Myron Test Positive 03/24/17 05:00: Lactic Acid Level 6.60H, White Blood Count 62.6#*H, Red Blood Count 4.35L, Hemoglobin 13.4L, Hematocrit 40.3L, Mean Corpuscular Volume 93, Mean Corpuscular Hemoglobin 30.9, Mean Corpuscular Hemoglobin Concent 33.3, Red Cell Distribution Width 15.9H, Platelet Count 136L, Mean Platelet Volume 11.4H, Neutrophils (%) (Auto) , Lymphocytes (%) (Auto) , Monocytes (%) (Auto) , Eosinophils (%) (Auto) , Basophils (%) (Auto) , Differential Total Cells Counted 100, Neutrophils % (Manual) 72, Lymphocytes % (Manual) 1L, Monocytes % ( Manual) 4, Eosinophils % (Manual) 1, Basophils % (Manual) 0, Metamyelocytes % 3H , Myelocytes % 1H, Band Neutrophils 18H, Platelet Estimate DecreasedL, Platelet Morphology Normal, Anisocytosis 1+, Sodium Level 139, Potassium Level 5.3H, Chloride Level 97L, Carbon Dioxide Level 20, Anion Gap 22H, Blood Urea Nitrogen 66H, Creatinine 2.5#H, Estimat Glomerular Filtration Rate , Glucose Level 170H, Calcium Level 8.4L, Phosphorus Level 5.5H, Magnesium Level 2.3, Iron Level 20L, Total Iron Binding Capacity 236L, Percent Iron Saturation 8L, Unsaturated Iron Binding 216, Total Bilirubin 1.3H, Direct Bilirubin 0.7H, Aspartate Amino Transf (AST/SGOT) 867H, Alanine Aminotransferase (ALT/SGPT) 864H, Alkaline Phosphatase 86, Ammonia 46, Lactate Dehydrogenase 761H, Total Protein 6.1L, Albumin 2.7L, Globulin 3.4, Albumin/Globulin Ratio 0.7L, Carcinoembryonic Antigen 26.0H, Prostate Specific Antigen 149.3H 03/24/17 10:00: Arterial Blood pH 7.419, Arterial Blood Partial Pressure CO2 30.4L, Arterial Blood Partial Pressure O2 < 64.0L, Arterial Blood HCO3 19.2L, Arterial Blood Oxygen Saturation 91.3L, Arterial Blood Base Excess -4.1, Myron Test Positive 03/24/17 11:50: Lactic Acid Level 2.60H Height (Feet): 5 Height (Inches): 5.00 Weight (Pounds): 150 Objective Elderly confused WM NCAT supple CTA RRR abd soft , flat, (+) GT, (+) SP tube no edema OBS CURTIS GARCIA Mar 24, 2017 20:52
--- NOTE | 2017-03-24 23:03 | General Progress Note ---
Assessment/Plan Status: not improved Assessment/Plan IMPRESSION: 1. Leukocytosis with left shift. --> WBC count critical value, on antibiotic IV 2. Leukemoid reaction. 3. Polycythemia, reactive, secondary to sepsis. 4. Erythrocytosis, reactive. 5. Bandemia. 6. Acute renal insufficiency. 7. Transaminitis. 8. Bilirubinemia. 9. Encephalopathy. 10. Sepsis. 11. Septic shock. 12. Hypertension. 13. Chronic obstructive pulmonary disease exacerbation. 14. Respiratory failure. 15. Dysphagia. 16. Gastrostomy tube placement. 17. History of cerebral infarct, history of cerebrovascular accident. 18. Dementia. 19. Alzheimer's. 20. Seizure. 21. Weakness. 22. Failure to thrive. RECOMMENDATIONS: 1. Watch count. 2. Watch coagulopathy. 3. Antibiotic IV. 4. Heparin subcutaneous. 5. PRBC transfusion p.r.n. basis. 6. Respiratory treatment. 7. Infectious Disease followup. 8. Pulmonary followup. 9. Cardiology followup. 10. Skin care. 11. Nutrition. 12. Close followup. 13. Continue current treatment. Subjective Date patient seen: Mar 24, 2017 Time patient seen: 06:00 Hematologic/Lymphatic: Reports: other - Leukocytosis. Allergies: Coded Allergies: No Known Allergies (Verified , 09/26/12) Subjective Ongoing tube feedings. In poor condition. Patient was resting in bed. Afebrile. Objective Last 24 Hour Vital Signs Date Time Temp Pulse Resp B/P (MAP) Pulse Ox O2 Delivery O2 Flow Rate FiO2 03/24/17 20:30 94 20 92/48 95 Nasal Cannula 3.0 03/24/17 20:19 96 Nasal Cannula 3.0 03/24/17 20:19 Nasal Cannula 3.0 03/24/17 20:00 97 03/24/17 20:00 98 20 85/59 96 Nasal Cannula 3.0 03/24/17 19:49 102/48 03/24/17 19:30 98.3 97 33 107/80 97 Nasal Cannula 3.0 03/24/17 19:00 93 20 92/51 100 Nasal Cannula 3.0 03/24/17 18:30 94 20 97/49 100 Nasal Cannula 3.0 03/24/17 18:00 90 21 90/47 100 Nasal Cannula 3.0 03/24/17 17:30 88 20 92/53 100 Nasal Cannula 3.0 03/24/17 17:00 99 21 104/88 100 Nasal Cannula 3.0 03/24/17 16:30 97 21 119/63 100 Nasal Cannula 3.0 03/24/17 16:00 99 03/24/17 16:00 98.1 99 20 111/83 100 Nasal Cannula 3.0 03/24/17 15:30 84 21 94/58 100 Nasal Cannula 3.0 03/24/17 15:00 90 23 90/53 100 Nasal Cannula 3.0 03/24/17 14:39 93/50 03/24/17 14:30 95 23 106/54 100 Nasal Cannula 3.0 03/24/17 14:00 96 24 106/67 100 Nasal Cannula 3.0 03/24/17 13:30 99 22 99/42 100 Nasal Cannula 3.0 03/24/17 13:00 97 23 92/47 100 Nasal Cannula 3.0 03/24/17 12:30 95 23 92/47 100 Nasal Cannula 3.0 03/24/17 12:00 98 03/24/17 12:00 98.4 97 20 119/91 100 Nasal Cannula 3.0 03/24/17 11:30 95 19 119/62 100 Nasal Cannula 3.0 03/24/17 11:00 98 18 96/51 100 Nasal Cannula 3.0 03/24/17 10:30 98 19 97/65 100 Nasal Cannula 3.0 03/24/17 10:06 99/42 03/24/17 10:00 88 19 99/60 100 Nasal Cannula 3.0 03/24/17 09:30 92 19 105/80 100 Nasal Cannula 3.0 03/24/17 09:00 93 19 124/87 100 Nasal Cannula 3.0 03/24/17 08:30 93 20 115/87 100 Nasal Cannula 3.0 03/24/17 08:00 98.7 83 20 97/50 100 Nasal Cannula 3.0 03/24/17 08:00 99 03/24/17 07:30 99 20 101/45 100 Nasal Cannula 3.0 03/24/17 07:23 Nasal Cannula 3.0 03/24/17 07:23 100 Nasal Cannula 3.0 03/24/17 07:15 66/45 03/24/17 07:00 94 21 84/70 100 Nasal Cannula 3.0 03/24/17 06:45 91 21 95/48 100 Nasal Cannula 3.0 03/24/17 06:34 93 21 97/45 100 Non-Rebreather 100 03/24/17 06:15 100 22 105/48 100 Non-Rebreather 100 03/24/17 06:00 100 22 101/38 100 Non-Rebreather 100 03/24/17 05:45 92 25 76/58 99 Non-Rebreather 100 03/24/17 05:30 92 25 99/43 99 Non-Rebreather 100 03/24/17 05:15 89 25 84/47 97 Non-Rebreather 100 03/24/17 05:00 92 25 80/58 97 Non-Rebreather 100 03/24/17 04:45 91 24 101/56 97 Non-Rebreather 100 03/24/17 04:30 91 22 92/46 97 Non-Rebreather 100 03/24/17 04:28 84/37 03/24/17 04:15 94 24 84/37 98 Non-Rebreather 100 03/24/17 04:00 94 03/24/17 04:00 98.9 91 25 117/88 98 Non-Rebreather 100 03/24/17 03:45 91 25 104/83 100 Non-Rebreather 100 03/24/17 03:30 93 30 112/99 100 Non-Rebreather 100 03/24/17 03:15 91 30 118/80 100 Non-Rebreather 100 03/24/17 03:00 91 24 143/126 100 Non-Rebreather 100 03/24/17 02:45 91 24 95/51 100 Non-Rebreather 100 03/24/17 02:30 99 22 95/42 100 Non-Rebreather 100 03/24/17 02:15 90 20 94/45 100 Non-Rebreather 100 03/24/17 02:00 90 22 94/43 100 Non-Rebreather 100 03/24/17 01:45 93 22 69/76 100 Non-Rebreather 100 03/24/17 01:30 94 22 152/35 100 Non-Rebreather 100 03/24/17 01:27 85/39 03/24/17 01:15 100 23 85/39 100 Non-Rebreather 100 03/24/17 01:00 94 21 88/42 100 Non-Rebreather 100 03/24/17 00:45 95 20 86/42 93 Non-Rebreather 100 03/24/17 00:30 94 21 85/36 88 Non-Rebreather 100 03/24/17 00:15 94 21 87/44 88 Non-Rebreather 100 03/24/17 00:00 101 03/24/17 00:00 98.6 93 22 67/37 90 Nasal Cannula 4.0 03/23/17 23:45 94 23 69/31 91 Nasal Cannula 4.0 03/23/17 23:30 94 23 54/41 95 Nasal Cannula 4.0 03/23/17 23:15 95 23 89/68 95 Nasal Cannula 4.0 Intake and Output 03/24/17 03/25/17 19:00 07:00 Intake Total 2967.0 ml 562.5 ml Output Total 560 ml 120 ml Balance 2407.0 ml 442.5 ml IV Total 2697.0 ml 532.5 ml Other 270 ml 30 ml Output Urine Total 560 ml 120 ml # Bowel Movements 3 Laboratory Tests 03/24/17 05:00: White Blood Count 62.6#*H, Red Blood Count 4.35L, Hemoglobin 13.4L, Hematocrit 40.3L, Mean Corpuscular Volume 93, Mean Corpuscular Hemoglobin 30.9, Mean Corpuscular Hemoglobin Concent 33.3, Red Cell Distribution Width 15.9H, Platelet Count 136L, Mean Platelet Volume 11.4H, Neutrophils (%) (Auto) , Lymphocytes (%) (Auto) , Monocytes (%) (Auto) , Eosinophils (%) (Auto) , Basophils (%) (Auto) , Differential Total Cells Counted 100, Neutrophils % ( Manual) 72, Lymphocytes % (Manual) 1L, Monocytes % (Manual) 4, Eosinophils % ( Manual) 1, Basophils % (Manual) 0, Metamyelocytes % 3H, Myelocytes % 1H, Band Neutrophils 18H, Platelet Estimate DecreasedL, Platelet Morphology Normal, Anisocytosis 1+, Sodium Level 139, Potassium Level 5.3H, Chloride Level 97L, Carbon Dioxide Level 20, Anion Gap 22H, Blood Urea Nitrogen 66H, Creatinine 2.5# H, Estimat Glomerular Filtration Rate , Glucose Level 170H, Lactic Acid Level 6.60H, Calcium Level 8.4L, Phosphorus Level 5.5H, Magnesium Level 2.3, Iron Level 20L, Total Iron Binding Capacity 236L, Percent Iron Saturation 8L, Unsaturated Iron Binding 216, Total Bilirubin 1.3H, Direct Bilirubin 0.7H, Aspartate Amino Transf (AST/SGOT) 867H, Alanine Aminotransferase (ALT/SGPT) 864H , Alkaline Phosphatase 86, Ammonia 46, Lactate Dehydrogenase 761H, Total Protein 6.1L, Albumin 2.7L, Globulin 3.4, Albumin/Globulin Ratio 0.7L, Carcinoembryonic Antigen 26.0H, Prostate Specific Antigen 149.3H 03/24/17 10:00: Arterial Blood pH 7.419, Arterial Blood Partial Pressure CO2 30.4L, Arterial Blood Partial Pressure O2 < 64.0L, Arterial Blood HCO3 19.2L, Arterial Blood Oxygen Saturation 91.3L, Arterial Blood Base Excess -4.1, Myron Test Positive 03/24/17 11:50: Lactic Acid Level 2.60H Height (Feet): 5 Height (Inches): 5.00 Weight (Pounds): 150 General Appearance: confused Neck: supple Abdomen: non tender, soft LYRIC SCHWARTZ Mar 24, 2017 23:03
--- NOTE | 2017-03-24 23:16 | Cardiology Progress Note ---
Assessment/Plan Assessment/Plan 1. Septic shock, IV fluid NS has been given in the past 48 hours with minimal effect, Levophed gtt has been initiated. Will keep MAP >65 mmHg 2. Normal LV systolic function with no wall motion abnormalities. 3. OSCAR, nephrology follow up. Subjective Subjective Sinus rhythm at 85. Levophed gtt started. Objective Last 24 Hour Vital Signs Date Time Temp Pulse Resp B/P (MAP) Pulse Ox O2 Delivery O2 Flow Rate FiO2 03/24/17 20:30 94 20 92/48 95 Nasal Cannula 3.0 03/24/17 20:19 96 Nasal Cannula 3.0 03/24/17 20:19 Nasal Cannula 3.0 03/24/17 20:00 97 03/24/17 20:00 98 20 85/59 96 Nasal Cannula 3.0 03/24/17 19:49 102/48 03/24/17 19:30 98.3 97 33 107/80 97 Nasal Cannula 3.0 03/24/17 19:00 93 20 92/51 100 Nasal Cannula 3.0 03/24/17 18:30 94 20 97/49 100 Nasal Cannula 3.0 03/24/17 18:00 90 21 90/47 100 Nasal Cannula 3.0 03/24/17 17:30 88 20 92/53 100 Nasal Cannula 3.0 03/24/17 17:00 99 21 104/88 100 Nasal Cannula 3.0 03/24/17 16:30 97 21 119/63 100 Nasal Cannula 3.0 03/24/17 16:00 99 03/24/17 16:00 98.1 99 20 111/83 100 Nasal Cannula 3.0 03/24/17 15:30 84 21 94/58 100 Nasal Cannula 3.0 03/24/17 15:00 90 23 90/53 100 Nasal Cannula 3.0 03/24/17 14:39 93/50 03/24/17 14:30 95 23 106/54 100 Nasal Cannula 3.0 03/24/17 14:00 96 24 106/67 100 Nasal Cannula 3.0 03/24/17 13:30 99 22 99/42 100 Nasal Cannula 3.0 03/24/17 13:00 97 23 92/47 100 Nasal Cannula 3.0 03/24/17 12:30 95 23 92/47 100 Nasal Cannula 3.0 03/24/17 12:00 98 03/24/17 12:00 98.4 97 20 119/91 100 Nasal Cannula 3.0 03/24/17 11:30 95 19 119/62 100 Nasal Cannula 3.0 03/24/17 11:00 98 18 96/51 100 Nasal Cannula 3.0 03/24/17 10:30 98 19 97/65 100 Nasal Cannula 3.0 03/24/17 10:06 99/42 03/24/17 10:00 88 19 99/60 100 Nasal Cannula 3.0 03/24/17 09:30 92 19 105/80 100 Nasal Cannula 3.0 03/24/17 09:00 93 19 124/87 100 Nasal Cannula 3.0 03/24/17 08:30 93 20 115/87 100 Nasal Cannula 3.0 03/24/17 08:00 98.7 83 20 97/50 100 Nasal Cannula 3.0 03/24/17 08:00 99 03/24/17 07:30 99 20 101/45 100 Nasal Cannula 3.0 03/24/17 07:23 Nasal Cannula 3.0 03/24/17 07:23 100 Nasal Cannula 3.0 03/24/17 07:15 66/45 03/24/17 07:00 94 21 84/70 100 Nasal Cannula 3.0 03/24/17 06:45 91 21 95/48 100 Nasal Cannula 3.0 03/24/17 06:34 93 21 97/45 100 Non-Rebreather 100 03/24/17 06:15 100 22 105/48 100 Non-Rebreather 100 03/24/17 06:00 100 22 101/38 100 Non-Rebreather 100 03/24/17 05:45 92 25 76/58 99 Non-Rebreather 100 03/24/17 05:30 92 25 99/43 99 Non-Rebreather 100 03/24/17 05:15 89 25 84/47 97 Non-Rebreather 100 03/24/17 05:00 92 25 80/58 97 Non-Rebreather 100 03/24/17 04:45 91 24 101/56 97 Non-Rebreather 100 03/24/17 04:30 91 22 92/46 97 Non-Rebreather 100 03/24/17 04:28 84/37 03/24/17 04:15 94 24 84/37 98 Non-Rebreather 100 03/24/17 04:00 94 03/24/17 04:00 98.9 91 25 117/88 98 Non-Rebreather 100 03/24/17 03:45 91 25 104/83 100 Non-Rebreather 100 03/24/17 03:30 93 30 112/99 100 Non-Rebreather 100 03/24/17 03:15 91 30 118/80 100 Non-Rebreather 100 03/24/17 03:00 91 24 143/126 100 Non-Rebreather 100 03/24/17 02:45 91 24 95/51 100 Non-Rebreather 100 03/24/17 02:30 99 22 95/42 100 Non-Rebreather 100 03/24/17 02:15 90 20 94/45 100 Non-Rebreather 100 03/24/17 02:00 90 22 94/43 100 Non-Rebreather 100 03/24/17 01:45 93 22 69/76 100 Non-Rebreather 100 03/24/17 01:30 94 22 152/35 100 Non-Rebreather 100 03/24/17 01:27 85/39 03/24/17 01:15 100 23 85/39 100 Non-Rebreather 100 03/24/17 01:00 94 21 88/42 100 Non-Rebreather 100 03/24/17 00:45 95 20 86/42 93 Non-Rebreather 100 03/24/17 00:30 94 21 85/36 88 Non-Rebreather 100 03/24/17 00:15 94 21 87/44 88 Non-Rebreather 100 03/24/17 00:00 101 03/24/17 00:00 98.6 93 22 67/37 90 Nasal Cannula 4.0 03/23/17 23:45 94 23 69/31 91 Nasal Cannula 4.0 03/23/17 23:30 94 23 54/41 95 Nasal Cannula 4.0 03/23/17 23:15 95 23 89/68 95 Nasal Cannula 4.0 Intake and Output 03/24/17 03/25/17 19:00 07:00 Intake Total 2967.0 ml 562.5 ml Output Total 560 ml 120 ml Balance 2407.0 ml 442.5 ml IV Total 2697.0 ml 532.5 ml Other 270 ml 30 ml Output Urine Total 560 ml 120 ml # Bowel Movements 3 CXR: reviewed - LV 2D Echo: LVEF 55%, Grade I LVDD Laboratory Tests Test 03/24/17 05:00 03/24/17 10:00 03/24/17 11:50 White Blood Count 62.6 K/UL (4.8-10.8) #*H Red Blood Count 4.35 M/UL (4.70-6.10) L Hemoglobin 13.4 G/DL (14.2-18.0) L Hematocrit 40.3 % (42.0-52.0) L Mean Corpuscular Volume 93 FL (80-99) Mean Corpuscular Hemoglobin 30.9 PG (27.0-31.0) Mean Corpuscular Hemoglobin Concent 33.3 G/DL (32.0-36.0) Red Cell Distribution Width 15.9 % (11.6-14.8) H Platelet Count 136 K/UL (150-450) L Mean Platelet Volume 11.4 FL (6.5-10.1) H Neutrophils (%) (Auto) % (45.0-75.0) Lymphocytes (%) (Auto) % (20.0-45.0) Monocytes (%) (Auto) % (1.0-10.0) Eosinophils (%) (Auto) % (0.0-3.0) Basophils (%) (Auto) % (0.0-2.0) Differential Total Cells Counted 100 Neutrophils % (Manual) 72 % (45-75) Lymphocytes % (Manual) 1 % (20-45) L Monocytes % (Manual) 4 % (1-10) Eosinophils % (Manual) 1 % (0-3) Basophils % (Manual) 0 % (0-2) Metamyelocytes % 3 % (0-0) H Myelocytes % 1 % (0-0) H Band Neutrophils 18 % (0-8) H Platelet Estimate Decreased L Platelet Morphology Normal Anisocytosis 1+ Sodium Level 139 mEQ/L (135-145) Potassium Level 5.3 mEQ/L (3.4-4.9) H Chloride Level 97 mEQ/L (98-107) L Carbon Dioxide Level 20 mEQ/L (20-30) Anion Gap 22 (5-15) H Blood Urea Nitrogen 66 mg/dL (7-23) H Creatinine 2.5 mg/dL (0.7-1.2) #H Estimat Glomerular Filtration Rate mL/min (>60) Glucose Level 170 mg/dL (74-106) H Lactic Acid Level 6.60 mmol/L (0.66-2.22) H 2.60 mmol/L (0.66-2.22) H Calcium Level 8.4 mg/dL (8.6-10.2) L Phosphorus Level 5.5 mg/dL (2.5-4.8) H Magnesium Level 2.3 mg/dL (1.7-2.5) Iron Level 20 ug/dL (59-158) L Total Iron Binding Capacity 236 ug/dL (250-400) L Percent Iron Saturation 8 % (15-50) L Unsaturated Iron Binding 216 ug/dL (112-346) Total Bilirubin 1.3 mg/dL (0.0-1.2) H Direct Bilirubin 0.7 mg/dL (0.1-0.3) H Aspartate Amino Transf (AST/SGOT) 867 U/L (5-40) H Alanine Aminotransferase (ALT/SGPT) 864 U/L (3-41) H Alkaline Phosphatase 86 U/L (40-129) Ammonia 46 umol/L (16-60) Lactate Dehydrogenase 761 U/L (135-230) H Total Protein 6.1 g/dL (6.6-8.7) L Albumin 2.7 g/dL (3.5-5.2) L Globulin 3.4 g/dL Albumin/Globulin Ratio 0.7 (1.0-2.7) L Carcinoembryonic Antigen 26.0 ng/mL H Prostate Specific Antigen 149.3 ng/mL (< 4.5) H Arterial Blood pH 7.419 (7.350-7.450) Arterial Blood Partial Pressure CO2 30.4 mmHg (35.0-45.0) L Arterial Blood Partial Pressure O2 < 64.0 mmHg (75.0-100.0) L Arterial Blood HCO3 19.2 mmol/L (22.0-26.0) L Arterial Blood Oxygen Saturation 91.3 % (92.0-98.0) L Arterial Blood Base Excess -4.1 Myron Test Positive Microbiology Date/Time Source Procedure Growth Status 03/22/17 17:42 Blood Blood Culture - Preliminary NO GROWTH AFTER 24 HOURS Resulted 03/22/17 17:30 Blood Blood Culture - Preliminary NO GROWTH AFTER 24 HOURS Resulted 03/23/17 12:00 Urine,Clean Catch Urine Culture - Preliminary NO GROWTH Resulted 03/22/17 17:42 Urine,Clean Catch Urine Culture - Preliminary Gram Negative Bacillus 1 Resulted 03/22/17 23:29 Foot Left Gram Stain - Final Resulted 03/22/17 23:29 Wound Culture - Preliminary Staphylococcus Aureus Gram Positive Cocci Resulted 03/22/17 23:29 Abdomen Gram Stain - Final Resulted 03/22/17 23:29 Abdomen Wound Culture - Preliminary NO GROWTH AFTER 24 HOURS Resulted 03/22/17 17:42 Rectum VRE Culture - Final NO VANCOMYCIN RESISTANT ENTEROCOCCUS ... Complete Objective HEENT: normocephalic, atraumatic, PERRL, EOMI Neck: No JVD, no carotid bruit, carotid upstroke 2+ B/L Respiratory: Clear B/L Cardiovascular: regular rate, rhythm, normal S1S2, no murmurs, gallops or rubs. Gastrointestinal: normal inspection, normal bowel sounds, non tender, soft, no guarding, no hernia Musculoskeletal: normal inspection, no edema, clubbing or cyanosis, negative Christopher's Sign FRANCISCO SPAIN Mar 24, 2017 23:16
[2017-03-25] VITALS (59 sets, daily range): BP systolic 79–209; BP diastolic 34–127
[2017-03-25] MEDS: Clindamycin 600mg 50 ML IV SCH ×3 (01:41→17:10)
[2017-03-25 05:03] LABS: MEAN CORPUSCULAR HEMOGLOBIN 30.7 PG (27.0-31.0); MEAN CORPUSCULAR HGB CONC 34.2 G/DL (32.0-36.0); MEAN CORPUSCULAR VOLUME 90 FL (80-99); MEAN PLATELET VOLUME 13.5 FL (6.5-10.1); PLATELET COUNT 84 K/UL (150-450); RED BLOOD COUNT 3.54 M/UL (4.70-6.10)
[2017-03-25 05:25] LABS: WHITE BLOOD COUNT 52.1 K/UL (4.8-10.8)
[2017-03-25 05:31] LABS: CHOLESTEROL 80 mg/dL (< 200); HEMOLYSIS 11; LDL CHOLESTEROL (CALC.) 29 mg/dL (60-99); URIC ACID 6.1 mg/dL (3.0-7.5)
[2017-03-25 05:34] LABS: ALANINE AMINOTRANSFERASE 456 U/L (3-41); ALBUMIN/GLOBULIN RATIO 0.9 (1.0-2.7); ANION GAP 15 (5-15); ASPARTATE AMINO TRANSFERASE 291 U/L (5-40); CALCIUM 7.6 mg/dL (8.6-10.2); CARBON DIOXIDE 21 mEQ/L (20-30); CHLORIDE 101 mEQ/L (98-107); CREATININE 2.1 mg/dL (0.7-1.2); HEMOLYSIS 3; MAGNESIUM 2.3 mg/dL (1.7-2.5); PHOSPHORUS 3.3 mg/dL (2.5-4.8); POTASSIUM 3.9 mEQ/L (3.4-4.9); SODIUM 137 mEQ/L (135-145); TOTAL PROTEIN 5.2 g/dL (6.6-8.7)
[2017-03-25] MEDS: Dyna-Hex 2% Top Sol 8oz TOPIC SCH (05:37)
[2017-03-25] MEDS: Piperacillin/Tazobactam 3.375 GM in D5W 110 ML IVPB SCH (05:37)
[2017-03-25 05:45] LABS: TROPONIN I 6.33 ng/mL (<=0.30)
[2017-03-25 05:46] LABS: REFLEX LACTIC ACID YES OR NO YES
[2017-03-25 05:52] LABS: HEMOGLOBIN A1C 6.6 % (< 6.0)
[2017-03-25 05:54] LABS: CRP QUANT 35.7 mg/dL (< 0.5)
[2017-03-25 06:15] LABS: BILIRUBIN,DIRECT 0.9 mg/dL (0.1-0.3)
[2017-03-25 08:12] LABS: BAND NEUTROPHILS % (MANUAL) 20 % (0-8); LYMPHOCYTES % (MANUAL) 2 % (20-45); METAMYELOCYTES % 2 % (0-0); MYELOCYTES % 2 % (0-0); NEUTROPHILS % (MANUAL) 70 % (45-75); TOTAL CELLS COUNTED 100
[2017-03-25 08:13] LABS: ANISOCYTOSIS 1+; BASOPHILS % (MANUAL) 0 % (0-2); EOSINOPHILS % (MANUAL) 0 % (0-3); PLATELET ESTIMATE DECREASED; PLATELET MORPHOLOGY NORMAL
[2017-03-25 08:30] LABS: ABG ALLEN TEST POSITIVE; ABG BASE EXCESS -4.2; ABG PCO2 30.8 mmHg (35.0-45.0)
--- NOTE | 2017-03-25 09:46 | Pulmonolgy Critical Care Note ---
Critical Care - Asmt/Plan Problems: (1) Septic shock (2) ATN (acute tubular necrosis) (3) Gross hematuria (4) Prostate cancer (5) Suprapubic catheter (6) Cachexia (7) Dementia (8) COPD (chronic obstructive pulmonary disease) Respiratory: monitor respiratory rate, adjust FIO2 Cardiac: continue pressors, continue to monitor HR/BP Renal: F/U I&O, keep IV fluid, check electrolytes Infectious Disease: check cultures, continue antibiotics Gastrointestinal: continue feedings/current rate Endocrine: monitor blood sugar Hematologic: monitor H/H Neurologic: PRN Ativan, PRN Morphine Affect: PRN ativan Prophylaxis: Protonix, SCDs Notes Reviewed: cardio, renal Discussed with: nurses, consultants, 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 - Objective Last 24 Hour Vital Signs Date Time Temp Pulse Resp B/P (MAP) Pulse Ox O2 Delivery O2 Flow Rate FiO2 03/25/17 09:08 93/49 03/25/17 09:00 94 23 98/54 100 Nasal Cannula 3.0 03/25/17 09:00 93 24 98/54 94 Nasal Cannula 3.0 03/25/17 08:30 93 25 90/45 100 Nasal Cannula 3.0 03/25/17 08:00 95/47 03/25/17 08:00 98.4 93 21 111/72 94 Nasal Cannula 3.0 03/25/17 08:00 98 03/25/17 07:30 97 22 95/58 96 Nasal Cannula 3.0 03/25/17 07:00 87 23 111/71 96 Nasal Cannula 3.0 03/25/17 06:56 Nasal Cannula 3.0 03/25/17 06:55 97 Nasal Cannula 3.0 03/25/17 06:30 97 23 94/52 98 Nasal Cannula 3.0 03/25/17 06:00 95 23 108/55 97 Nasal Cannula 3.0 03/25/17 05:37 95/47 03/25/17 05:30 94 16 98/51 95 Nasal Cannula 3.0 03/25/17 05:15 101 24 89/68 97 Nasal Cannula 3.0 03/25/17 05:00 101 23 90/58 97 Nasal Cannula 3.0 03/25/17 04:45 96 23 90/58 97 Nasal Cannula 3.0 03/25/17 04:30 96 22 101/53 96 Nasal Cannula 3.0 03/25/17 04:15 96 23 120/83 97 Nasal Cannula 3.0 03/25/17 04:00 98.1 95 21 128/68 96 Nasal Cannula 3.0 03/25/17 04:00 86 03/25/17 03:45 95 20 108/84 96 Nasal Cannula 3.0 03/25/17 03:30 98 28 110/51 95 Nasal Cannula 3.0 03/25/17 03:15 85 19 107/54 98 Nasal Cannula 3.0 03/25/17 03:00 96 19 112/84 98 Nasal Cannula 3.0 03/25/17 02:45 94 19 104/54 98 Nasal Cannula 3.0 03/25/17 02:30 96 19 104/85 98 Nasal Cannula 3.0 03/25/17 02:15 97 19 129/85 98 Nasal Cannula 3.0 03/25/17 02:00 97 19 106/54 98 Nasal Cannula 3.0 03/25/17 01:45 98 19 95/49 96 Nasal Cannula 3.0 03/25/17 01:30 97 25 209/71 96 Nasal Cannula 3.0 03/25/17 01:15 97 23 173/34 96 Nasal Cannula 3.0 03/25/17 01:00 98 24 79/56 96 Nasal Cannula 3.0 03/25/17 00:45 98 22 119/60 96 Nasal Cannula 3.0 03/25/17 00:30 100 30 107/66 98 Nasal Cannula 3.0 03/25/17 00:29 105/57 03/25/17 00:15 100 30 105/57 98 Nasal Cannula 3.0 03/25/17 00:00 97 24 105/57 98 Nasal Cannula 3.0 03/25/17 00:00 95 03/24/17 23:45 96 23 109/54 98 Nasal Cannula 3.0 03/24/17 23:30 98.6 96 23 99/56 96 Nasal Cannula 3.0 03/24/17 23:15 96 23 130/47 96 Nasal Cannula 3.0 03/24/17 23:00 96 23 114/89 96 Nasal Cannula 3.0 03/24/17 22:45 96 23 114/89 96 Nasal Cannula 3.0 03/24/17 22:30 95 21 103/59 95 Nasal Cannula 3.0 03/24/17 22:15 95 22 100/54 95 Nasal Cannula 3.0 03/24/17 22:00 95 22 113/75 95 Nasal Cannula 3.0 03/24/17 21:45 95 22 92/47 94 Nasal Cannula 3.0 03/24/17 21:30 95 23 92/54 95 Nasal Cannula 3.0 03/24/17 21:15 96 23 120/79 95 Nasal Cannula 3.0 03/24/17 21:00 95 20 96/46 94 Nasal Cannula 3.0 03/24/17 20:45 94 20 91/53 93 Nasal Cannula 3.0 03/24/17 20:30 94 20 92/48 95 Nasal Cannula 3.0 03/24/17 20:19 96 Nasal Cannula 3.0 03/24/17 20:19 Nasal Cannula 3.0 03/24/17 20:00 97 03/24/17 20:00 98 20 85/59 96 Nasal Cannula 3.0 03/24/17 19:49 102/48 03/24/17 19:30 98.3 97 33 107/80 97 Nasal Cannula 3.0 03/24/17 19:00 93 20 92/51 100 Nasal Cannula 3.0 03/24/17 18:30 94 20 97/49 100 Nasal Cannula 3.0 03/24/17 18:00 90 21 90/47 100 Nasal Cannula 3.0 03/24/17 17:30 88 20 92/53 100 Nasal Cannula 3.0 03/24/17 17:00 99 21 104/88 100 Nasal Cannula 3.0 03/24/17 16:30 97 21 119/63 100 Nasal Cannula 3.0 03/24/17 16:00 99 03/24/17 16:00 98.1 99 20 111/83 100 Nasal Cannula 3.0 03/24/17 15:30 84 21 94/58 100 Nasal Cannula 3.0 03/24/17 15:00 90 23 90/53 100 Nasal Cannula 3.0 03/24/17 14:39 93/50 03/24/17 14:30 95 23 106/54 100 Nasal Cannula 3.0 03/24/17 14:00 96 24 106/67 100 Nasal Cannula 3.0 03/24/17 13:30 99 22 99/42 100 Nasal Cannula 3.0 03/24/17 13:00 97 23 92/47 100 Nasal Cannula 3.0 03/24/17 12:30 95 23 92/47 100 Nasal Cannula 3.0 03/24/17 12:00 98 03/24/17 12:00 98.4 97 20 119/91 100 Nasal Cannula 3.0 03/24/17 11:30 95 19 119/62 100 Nasal Cannula 3.0 03/24/17 11:00 98 18 96/51 100 Nasal Cannula 3.0 03/24/17 10:30 98 19 97/65 100 Nasal Cannula 3.0 03/24/17 10:06 99/42 03/24/17 10:00 88 19 99/60 100 Nasal Cannula 3.0 Status: awake Condition: critical HEENT: atraumatic Neck: full ROM Lungs: chest wall tender Heart: HR/BP stable Abdomen: soft, non-tender, feeding tube Extremities: no C/C/E, edema Decubiti: stage Micro: Microbiology Date/Time Source Procedure Growth Status 03/22/17 17:42 Blood Blood Culture - Preliminary NO GROWTH AFTER 48 HOURS Resulted 03/22/17 17:30 Blood Blood Culture - Preliminary NO GROWTH AFTER 48 HOURS Resulted 03/23/17 12:00 Urine,Clean Catch Urine Culture - Preliminary NO GROWTH Resulted 03/22/17 17:42 Urine,Clean Catch Urine Culture - Preliminary Citrobacter Freundii Resulted 03/22/17 23:29 Foot Left Gram Stain - Final Resulted 03/22/17 23:29 Wound Culture - Preliminary Staphylococcus Aureus Diphtheroids Resulted 03/22/17 23:29 Abdomen Gram Stain - Final Resulted 03/22/17 23:29 Abdomen Wound Culture - Preliminary NO GROWTH AFTER 48 HOURS Resulted 03/22/17 17:42 Rectum VRE Culture - Final NO VANCOMYCIN RESISTANT ENTEROCOCCUS ... Complete Accucheck: 166 Critical Care - Subjective ROS Limited/Unobtainable: Yes ICU Day: 3 Condition: critical EKG Rhythm: Sinus Rhythm FI02: 100 Fluids: 125 CC NS Drips: Levophed I&O: Intake and Output 03/25/17 03/26/17 19:00 07:00 Intake Total 406.25 ml Output Total 175 ml Balance 231.25 ml Intake Free Water 30 ml IV Total 376.25 ml Output Urine Total 175 ml CXR: increasing pleural effusion Labs: Laboratory Tests Test 03/24/17 10:00 03/24/17 11:50 03/25/17 04:30 03/25/17 08:20 Arterial Blood pH 7.419 (7.350-7.450) 7.410 (7.350-7.450) Arterial Blood Partial Pressure CO2 30.4 mmHg (35.0-45.0) L 30.8 mmHg (35.0-45.0) L Arterial Blood Partial Pressure O2 < 64.0 mmHg (75.0-100.0) L 64.7 mmHg (75.0-100.0) L Arterial Blood HCO3 19.2 mmol/L (22.0-26.0) L 19.4 mmol/L (22.0-26.0) L Arterial Blood Oxygen Saturation 91.3 % (92.0-98.0) L 91.8 % (92.0-98.0) L Arterial Blood Base Excess -4.1 -4.2 Myron Test Positive Positive Lactic Acid Level 2.60 mmol/L (0.66-2.22) H 2.10 mmol/L (0.66-2.22) White Blood Count 52.1 K/UL (4.8-10.8) *H Red Blood Count 3.54 M/UL (4.70-6.10) L Hemoglobin 10.9 G/DL (14.2-18.0) L Hematocrit 31.8 % (42.0-52.0) L Mean Corpuscular Volume 90 FL (80-99) Mean Corpuscular Hemoglobin 30.7 PG (27.0-31.0) Mean Corpuscular Hemoglobin Concent 34.2 G/DL (32.0-36.0) Red Cell Distribution Width 16.0 % (11.6-14.8) H Platelet Count 84 K/UL (150-450) L Mean Platelet Volume 13.5 FL (6.5-10.1) H Neutrophils (%) (Auto) % (45.0-75.0) Lymphocytes (%) (Auto) % (20.0-45.0) Monocytes (%) (Auto) % (1.0-10.0) Eosinophils (%) (Auto) % (0.0-3.0) Basophils (%) (Auto) % (0.0-2.0) Differential Total Cells Counted 100 Neutrophils % (Manual) 70 % (45-75) Lymphocytes % (Manual) 2 % (20-45) L Monocytes % (Manual) 4 % (1-10) Eosinophils % (Manual) 0 % (0-3) Basophils % (Manual) 0 % (0-2) Metamyelocytes % 2 % (0-0) H Myelocytes % 2 % (0-0) H Band Neutrophils 20 % (0-8) H Platelet Estimate Decreased L Platelet Morphology Normal Anisocytosis 1+ Sodium Level 137 mEQ/L (135-145) Potassium Level 3.9 mEQ/L (3.4-4.9) Chloride Level 101 mEQ/L (98-107) Carbon Dioxide Level 21 mEQ/L (20-30) Anion Gap 15 (5-15) Blood Urea Nitrogen 63 mg/dL (7-23) H Creatinine 2.1 mg/dL (0.7-1.2) H Estimat Glomerular Filtration Rate mL/min (>60) Glucose Level 140 mg/dL (74-106) H Hemoglobin A1c 6.6 % (< 6.0) H Uric Acid 6.1 mg/dL (3.0-7.5) Calcium Level 7.6 mg/dL (8.6-10.2) L Phosphorus Level 3.3 mg/dL (2.5-4.8) Magnesium Level 2.3 mg/dL (1.7-2.5) Total Bilirubin 1.7 mg/dL (0.0-1.2) H Direct Bilirubin 0.9 mg/dL (0.1-0.3) H Gamma Glutamyl Transpeptidase 44 U/L (8-61) Aspartate Amino Transf (AST/SGOT) 291 U/L (5-40) H Alanine Aminotransferase (ALT/SGPT) 456 U/L (3-41) H Alkaline Phosphatase 97 U/L (40-129) Total Creatine Kinase 651 U/L (38-174) H Troponin I 6.33 ng/mL (<=0.30) *H C-Reactive Protein, Quantitative 35.7 mg/dL (< 0.5) H Pro-B-Type Natriuretic Peptide 03702 pg/mL (0-450) H Total Protein 5.2 g/dL (6.6-8.7) L Albumin 2.5 g/dL (3.5-5.2) L Globulin 2.7 g/dL Albumin/Globulin Ratio 0.9 (1.0-2.7) L Triglycerides Level 237 mg/dL (< 150) H Cholesterol Level 80 mg/dL (< 200) LDL Cholesterol 29 mg/dL (60-99) L HDL Cholesterol < 4 mg/dL (> 60) Cholesterol/HDL Ratio 20.0 (3.3-4.4) H Test 03/25/17 08:50 Lactic Acid Level 2.30 mmol/L (0.66-2.22) H VERITO QUEZADA Mar 25, 2017 09:46
--- NOTE | 2017-03-25 10:04 | General Progress Note ---
Progress Note Progress Note pt needs a central line to receive IV fluids and antibiotics. He doesn''t have any family members or anybody else to sign for his consents. VERITO QUEZADA Mar 25, 2017 10:04
--- NOTE | 2017-03-25 10:34 | General Progress Note ---
Assessment/Plan Assessment/Plan Assessment - abnormal LFT - likely shocked liver - dysphagia, s/p PEG - Sepsis, shock - s/p suprapubic cath - hematuria - OBS - Poor prognosis Recommendations - TF when OK'd by pulmonary - supportive care - check abd U/S - pending - follow LFT - abx per ID Subjective Allergies: Coded Allergies: No Known Allergies (Verified , 09/26/12) Subjective Seen earlier today obtunded, in ICU (+) BM - formed NPO Objective Last 24 Hour Vital Signs Date Time Temp Pulse Resp B/P (MAP) Pulse Ox O2 Delivery O2 Flow Rate FiO2 03/25/17 10:00 95 24 95/61 95 Nasal Cannula 3.0 03/25/17 09:30 100 24 86/57 95 Nasal Cannula 3.0 03/25/17 09:08 93/49 03/25/17 09:00 94 23 98/54 100 Nasal Cannula 3.0 03/25/17 09:00 93 24 98/54 94 Nasal Cannula 3.0 03/25/17 08:30 93 25 90/45 100 Nasal Cannula 3.0 03/25/17 08:00 95/47 03/25/17 08:00 98.4 93 21 111/72 94 Nasal Cannula 3.0 03/25/17 08:00 98 03/25/17 07:30 97 22 95/58 96 Nasal Cannula 3.0 03/25/17 07:00 87 23 111/71 96 Nasal Cannula 3.0 03/25/17 06:56 Nasal Cannula 3.0 03/25/17 06:55 97 Nasal Cannula 3.0 03/25/17 06:30 97 23 94/52 98 Nasal Cannula 3.0 03/25/17 06:00 95 23 108/55 97 Nasal Cannula 3.0 03/25/17 05:37 95/47 03/25/17 05:30 94 16 98/51 95 Nasal Cannula 3.0 03/25/17 05:15 101 24 89/68 97 Nasal Cannula 3.0 03/25/17 05:00 101 23 90/58 97 Nasal Cannula 3.0 03/25/17 04:45 96 23 90/58 97 Nasal Cannula 3.0 03/25/17 04:30 96 22 101/53 96 Nasal Cannula 3.0 03/25/17 04:15 96 23 120/83 97 Nasal Cannula 3.0 03/25/17 04:00 98.1 95 21 128/68 96 Nasal Cannula 3.0 03/25/17 04:00 86 03/25/17 03:45 95 20 108/84 96 Nasal Cannula 3.0 03/25/17 03:30 98 28 110/51 95 Nasal Cannula 3.0 03/25/17 03:15 85 19 107/54 98 Nasal Cannula 3.0 03/25/17 03:00 96 19 112/84 98 Nasal Cannula 3.0 03/25/17 02:45 94 19 104/54 98 Nasal Cannula 3.0 03/25/17 02:30 96 19 104/85 98 Nasal Cannula 3.0 03/25/17 02:15 97 19 129/85 98 Nasal Cannula 3.0 03/25/17 02:00 97 19 106/54 98 Nasal Cannula 3.0 03/25/17 01:45 98 19 95/49 96 Nasal Cannula 3.0 03/25/17 01:30 97 25 209/71 96 Nasal Cannula 3.0 03/25/17 01:15 97 23 173/34 96 Nasal Cannula 3.0 03/25/17 01:00 98 24 79/56 96 Nasal Cannula 3.0 03/25/17 00:45 98 22 119/60 96 Nasal Cannula 3.0 03/25/17 00:30 100 30 107/66 98 Nasal Cannula 3.0 03/25/17 00:29 105/57 03/25/17 00:15 100 30 105/57 98 Nasal Cannula 3.0 03/25/17 00:00 97 24 105/57 98 Nasal Cannula 3.0 03/25/17 00:00 95 03/24/17 23:45 96 23 109/54 98 Nasal Cannula 3.0 03/24/17 23:30 98.6 96 23 99/56 96 Nasal Cannula 3.0 03/24/17 23:15 96 23 130/47 96 Nasal Cannula 3.0 03/24/17 23:00 96 23 114/89 96 Nasal Cannula 3.0 03/24/17 22:45 96 23 114/89 96 Nasal Cannula 3.0 03/24/17 22:30 95 21 103/59 95 Nasal Cannula 3.0 03/24/17 22:15 95 22 100/54 95 Nasal Cannula 3.0 03/24/17 22:00 95 22 113/75 95 Nasal Cannula 3.0 03/24/17 21:45 95 22 92/47 94 Nasal Cannula 3.0 03/24/17 21:30 95 23 92/54 95 Nasal Cannula 3.0 03/24/17 21:15 96 23 120/79 95 Nasal Cannula 3.0 03/24/17 21:00 95 20 96/46 94 Nasal Cannula 3.0 03/24/17 20:45 94 20 91/53 93 Nasal Cannula 3.0 03/24/17 20:30 94 20 92/48 95 Nasal Cannula 3.0 03/24/17 20:19 96 Nasal Cannula 3.0 03/24/17 20:19 Nasal Cannula 3.0 03/24/17 20:00 97 03/24/17 20:00 98 20 85/59 96 Nasal Cannula 3.0 03/24/17 19:49 102/48 03/24/17 19:30 98.3 97 33 107/80 97 Nasal Cannula 3.0 03/24/17 19:00 93 20 92/51 100 Nasal Cannula 3.0 03/24/17 18:30 94 20 97/49 100 Nasal Cannula 3.0 03/24/17 18:00 90 21 90/47 100 Nasal Cannula 3.0 03/24/17 17:30 88 20 92/53 100 Nasal Cannula 3.0 03/24/17 17:00 99 21 104/88 100 Nasal Cannula 3.0 03/24/17 16:30 97 21 119/63 100 Nasal Cannula 3.0 03/24/17 16:00 99 03/24/17 16:00 98.1 99 20 111/83 100 Nasal Cannula 3.0 03/24/17 15:30 84 21 94/58 100 Nasal Cannula 3.0 03/24/17 15:00 90 23 90/53 100 Nasal Cannula 3.0 03/24/17 14:39 93/50 03/24/17 14:30 95 23 106/54 100 Nasal Cannula 3.0 03/24/17 14:00 96 24 106/67 100 Nasal Cannula 3.0 03/24/17 13:30 99 22 99/42 100 Nasal Cannula 3.0 03/24/17 13:00 97 23 92/47 100 Nasal Cannula 3.0 03/24/17 12:30 95 23 92/47 100 Nasal Cannula 3.0 03/24/17 12:00 98 03/24/17 12:00 98.4 97 20 119/91 100 Nasal Cannula 3.0 03/24/17 11:30 95 19 119/62 100 Nasal Cannula 3.0 03/24/17 11:00 98 18 96/51 100 Nasal Cannula 3.0 Intake and Output 03/25/17 03/26/17 19:00 07:00 Intake Total 406.25 ml Output Total 275 ml Balance 131.25 ml Intake Free Water 30 ml IV Total 376.25 ml Output Urine Total 275 ml Laboratory Tests 03/24/17 11:50: Lactic Acid Level 2.60H 03/25/17 04:30: Lactic Acid Level 2.10, White Blood Count 52.1*H, Red Blood Count 3.54L, Hemoglobin 10.9L, Hematocrit 31.8L, Mean Corpuscular Volume 90, Mean Corpuscular Hemoglobin 30.7, Mean Corpuscular Hemoglobin Concent 34.2, Red Cell Distribution Width 16.0H, Platelet Count 84L, Mean Platelet Volume 13.5H, Neutrophils (%) (Auto) , Lymphocytes (%) (Auto) , Monocytes (%) (Auto) , Eosinophils (%) (Auto) , Basophils (%) (Auto) , Differential Total Cells Counted 100, Neutrophils % (Manual) 70, Lymphocytes % (Manual) 2L, Monocytes % ( Manual) 4, Eosinophils % (Manual) 0, Basophils % (Manual) 0, Metamyelocytes % 2H , Myelocytes % 2H, Band Neutrophils 20H, Platelet Estimate DecreasedL, Platelet Morphology Normal, Anisocytosis 1+, Sodium Level 137, Potassium Level 3.9, Chloride Level 101, Carbon Dioxide Level 21, Anion Gap 15, Blood Urea Nitrogen 63H, Creatinine 2.1H, Estimat Glomerular Filtration Rate , Glucose Level 140H, Hemoglobin A1c 6.6H, Uric Acid 6.1, Calcium Level 7.6L, Phosphorus Level 3.3, Magnesium Level 2.3, Total Bilirubin 1.7H, Direct Bilirubin 0.9H, Gamma Glutamyl Transpeptidase 44, Aspartate Amino Transf (AST/SGOT) 291H, Alanine Aminotransferase (ALT/SGPT) 456H, Alkaline Phosphatase 97, Total Creatine Kinase 651H, Troponin I 6.33*H, C-Reactive Protein, Quantitative 35.7H, Pro-B- Type Natriuretic Peptide 52033H, Total Protein 5.2L, Albumin 2.5L, Globulin 2.7 , Albumin/Globulin Ratio 0.9L, Triglycerides Level 237H, Cholesterol Level 80, LDL Cholesterol 29L, HDL Cholesterol < 4, Cholesterol/HDL Ratio 20.0H 03/25/17 08:20: Arterial Blood pH 7.410, Arterial Blood Partial Pressure CO2 30.8L, Arterial Blood Partial Pressure O2 64.7L, Arterial Blood HCO3 19.4L, Arterial Blood Oxygen Saturation 91.8L, Arterial Blood Base Excess -4.2, Myron Test Positive 03/25/17 08:50: Lactic Acid Level 2.30H Height (Feet): 5 Height (Inches): 5.00 Weight (Pounds): 152 Objective Elderly confused WM NCAT supple CTA RRR abd soft , flat, (+) GT, (+) SP tube no edema OBS CURTIS GARCIA Mar 25, 2017 10:34
--- NOTE | 2017-03-25 11:19 | Diagnostic Imaging Report ---
Indication: Dyspnea Comparison: 03/24/17 A single view chest radiograph was obtained. Findings: Right hemidiaphragm is not visualized, which may be due to presence of a small pleural effusion. There is atelectasis present bilaterally at the lung bases unchanged. Right jugular line again noted. Heart size is stable. Impression: Suspect a small right pleural effusion. Basilar atelectasis No change
--- NOTE | 2017-03-25 13:30 | Diagnostic Imaging Report ---
Indication:Abdominal pain Technique: Grayscale and duplex Doppler imaging of the abdomen performed. Comparison: Renal ultrasound 03/23/17 Findings: There is a small right pleural effusion. Pancreas is not seen well. The left lobe of the liver and left kidney are not also seen well. Gallbladder sludge noted. CBD is 6 mm. Portal vein is patent by Doppler evaluation. There is a cyst that is parapelvic involving the right kidney again noted. The liver is grossly unremarkable as visualized. Impression: Limited evaluation. Small right pleural fusion Right renal cyst
--- NOTE | 2017-03-25 13:37 | General Progress Note ---
Assessment/Plan Status: unchanged, deteriorating Assessment/Plan - Acute Renal Failure- - Dislodged gastrostomy tube - UTI (urinary tract infection), with severe leukocytosis, high Lactic acid - h/o Seizure - Dementia - Sepsis - COPD (chronic obstructive pulmonary disease) - Cachexia - High Troponin Plan: Keep BP above 100 Avoid Nephrotoxics Monitor renal parameters Per consultants Subjective ROS Limited/Unobtainable: Yes Allergies: Coded Allergies: No Known Allergies (Verified , 09/26/12) Objective Last 24 Hour Vital Signs Date Time Temp Pulse Resp B/P (MAP) Pulse Ox O2 Delivery O2 Flow Rate FiO2 03/25/17 13:00 96/44 03/25/17 13:00 89 25 96/44 95 Nasal Cannula 3.0 03/25/17 12:30 90 30 108/54 97 Nasal Cannula 3.0 03/25/17 12:00 97.7 94 22 85/63 99 Nasal Cannula 3.0 03/25/17 12:00 92 03/25/17 11:30 91 30 108/64 98 Nasal Cannula 3.0 03/25/17 11:00 95 21 115/87 97 Nasal Cannula 3.0 03/25/17 11:00 90/60 03/25/17 10:30 103 22 110/64 95 Nasal Cannula 3.0 03/25/17 10:00 95 24 95/61 95 Nasal Cannula 3.0 03/25/17 09:30 100 24 86/57 95 Nasal Cannula 3.0 03/25/17 09:08 93/49 03/25/17 09:00 94 23 98/54 100 Nasal Cannula 3.0 03/25/17 09:00 93 24 98/54 94 Nasal Cannula 3.0 03/25/17 08:30 93 25 90/45 100 Nasal Cannula 3.0 03/25/17 08:00 95/47 03/25/17 08:00 98.4 93 21 111/72 94 Nasal Cannula 3.0 03/25/17 08:00 98 03/25/17 07:30 97 22 95/58 96 Nasal Cannula 3.0 03/25/17 07:00 87 23 111/71 96 Nasal Cannula 3.0 03/25/17 06:56 Nasal Cannula 3.0 03/25/17 06:55 97 Nasal Cannula 3.0 03/25/17 06:30 97 23 94/52 98 Nasal Cannula 3.0 03/25/17 06:00 95 23 108/55 97 Nasal Cannula 3.0 03/25/17 05:37 95/47 03/25/17 05:30 94 16 98/51 95 Nasal Cannula 3.0 03/25/17 05:15 101 24 89/68 97 Nasal Cannula 3.0 03/25/17 05:00 101 23 90/58 97 Nasal Cannula 3.0 03/25/17 04:45 96 23 90/58 97 Nasal Cannula 3.0 03/25/17 04:30 96 22 101/53 96 Nasal Cannula 3.0 03/25/17 04:15 96 23 120/83 97 Nasal Cannula 3.0 03/25/17 04:00 98.1 95 21 128/68 96 Nasal Cannula 3.0 03/25/17 04:00 86 03/25/17 03:45 95 20 108/84 96 Nasal Cannula 3.0 03/25/17 03:30 98 28 110/51 95 Nasal Cannula 3.0 03/25/17 03:15 85 19 107/54 98 Nasal Cannula 3.0 03/25/17 03:00 96 19 112/84 98 Nasal Cannula 3.0 03/25/17 02:45 94 19 104/54 98 Nasal Cannula 3.0 03/25/17 02:30 96 19 104/85 98 Nasal Cannula 3.0 03/25/17 02:15 97 19 129/85 98 Nasal Cannula 3.0 03/25/17 02:00 97 19 106/54 98 Nasal Cannula 3.0 03/25/17 01:45 98 19 95/49 96 Nasal Cannula 3.0 03/25/17 01:30 97 25 209/71 96 Nasal Cannula 3.0 03/25/17 01:15 97 23 173/34 96 Nasal Cannula 3.0 03/25/17 01:00 98 24 79/56 96 Nasal Cannula 3.0 03/25/17 00:45 98 22 119/60 96 Nasal Cannula 3.0 03/25/17 00:30 100 30 107/66 98 Nasal Cannula 3.0 03/25/17 00:29 105/57 03/25/17 00:15 100 30 105/57 98 Nasal Cannula 3.0 03/25/17 00:00 97 24 105/57 98 Nasal Cannula 3.0 03/25/17 00:00 95 03/24/17 23:45 96 23 109/54 98 Nasal Cannula 3.0 03/24/17 23:30 98.6 96 23 99/56 96 Nasal Cannula 3.0 03/24/17 23:15 96 23 130/47 96 Nasal Cannula 3.0 03/24/17 23:00 96 23 114/89 96 Nasal Cannula 3.0 03/24/17 22:45 96 23 114/89 96 Nasal Cannula 3.0 03/24/17 22:30 95 21 103/59 95 Nasal Cannula 3.0 03/24/17 22:15 95 22 100/54 95 Nasal Cannula 3.0 03/24/17 22:00 95 22 113/75 95 Nasal Cannula 3.0 03/24/17 21:45 95 22 92/47 94 Nasal Cannula 3.0 03/24/17 21:30 95 23 92/54 95 Nasal Cannula 3.0 03/24/17 21:15 96 23 120/79 95 Nasal Cannula 3.0 03/24/17 21:00 95 20 96/46 94 Nasal Cannula 3.0 03/24/17 20:45 94 20 91/53 93 Nasal Cannula 3.0 03/24/17 20:30 94 20 92/48 95 Nasal Cannula 3.0 03/24/17 20:19 96 Nasal Cannula 3.0 03/24/17 20:19 Nasal Cannula 3.0 03/24/17 20:00 97 03/24/17 20:00 98 20 85/59 96 Nasal Cannula 3.0 03/24/17 19:49 102/48 03/24/17 19:30 98.3 97 33 107/80 97 Nasal Cannula 3.0 03/24/17 19:00 93 20 92/51 100 Nasal Cannula 3.0 03/24/17 18:30 94 20 97/49 100 Nasal Cannula 3.0 03/24/17 18:00 90 21 90/47 100 Nasal Cannula 3.0 03/24/17 17:30 88 20 92/53 100 Nasal Cannula 3.0 03/24/17 17:00 99 21 104/88 100 Nasal Cannula 3.0 03/24/17 16:30 97 21 119/63 100 Nasal Cannula 3.0 03/24/17 16:00 99 03/24/17 16:00 98.1 99 20 111/83 100 Nasal Cannula 3.0 03/24/17 15:30 84 21 94/58 100 Nasal Cannula 3.0 03/24/17 15:00 90 23 90/53 100 Nasal Cannula 3.0 03/24/17 14:39 93/50 03/24/17 14:30 95 23 106/54 100 Nasal Cannula 3.0 03/24/17 14:00 96 24 106/67 100 Nasal Cannula 3.0 Intake and Output 03/25/17 03/26/17 19:00 07:00 Intake Total 765.00 ml Output Total 425 ml Balance 340.00 ml Intake Free Water 30 ml IV Total 735.00 ml Output Urine Total 425 ml Laboratory Tests 03/25/17 04:30: White Blood Count 52.1*H, Red Blood Count 3.54L, Hemoglobin 10.9L, Hematocrit 31.8L, Mean Corpuscular Volume 90, Mean Corpuscular Hemoglobin 30.7, Mean Corpuscular Hemoglobin Concent 34.2, Red Cell Distribution Width 16.0H, Platelet Count 84L, Mean Platelet Volume 13.5H, Neutrophils (%) (Auto) , Lymphocytes (%) (Auto) , Monocytes (%) (Auto) , Eosinophils (%) (Auto) , Basophils (%) (Auto) , Differential Total Cells Counted 100, Neutrophils % ( Manual) 70, Lymphocytes % (Manual) 2L, Monocytes % (Manual) 4, Eosinophils % ( Manual) 0, Basophils % (Manual) 0, Metamyelocytes % 2H, Myelocytes % 2H, Band Neutrophils 20H, Platelet Estimate DecreasedL, Platelet Morphology Normal, Anisocytosis 1+, Sodium Level 137, Potassium Level 3.9, Chloride Level 101, Carbon Dioxide Level 21, Anion Gap 15, Blood Urea Nitrogen 63H, Creatinine 2.1H , Estimat Glomerular Filtration Rate , Glucose Level 140H, Hemoglobin A1c 6.6H, Lactic Acid Level 2.10, Uric Acid 6.1, Calcium Level 7.6L, Phosphorus Level 3.3 , Magnesium Level 2.3, Total Bilirubin 1.7H, Direct Bilirubin 0.9H, Gamma Glutamyl Transpeptidase 44, Aspartate Amino Transf (AST/SGOT) 291H, Alanine Aminotransferase (ALT/SGPT) 456H, Alkaline Phosphatase 97, Total Creatine Kinase 651H, Troponin I 6.33*H, C-Reactive Protein, Quantitative 35.7H, Pro-B- Type Natriuretic Peptide 12673D, Total Protein 5.2L, Albumin 2.5L, Globulin 2.7 , Albumin/Globulin Ratio 0.9L, Triglycerides Level 237H, Cholesterol Level 80, LDL Cholesterol 29L, HDL Cholesterol < 4, Cholesterol/HDL Ratio 20.0H 03/25/17 08:20: Arterial Blood pH 7.410, Arterial Blood Partial Pressure CO2 30.8L, Arterial Blood Partial Pressure O2 64.7L, Arterial Blood HCO3 19.4L, Arterial Blood Oxygen Saturation 91.8L, Arterial Blood Base Excess -4.2, Myron Test Positive 03/25/17 08:50: Lactic Acid Level 2.30H Height (Feet): 5 Height (Inches): 5.00 Weight (Pounds): 152 General Appearance: mild distress Cardiovascular: tachycardia Respiratory/Chest: decreased breath sounds Abdomen: distended FAITH SEARS Mar 25, 2017 13:37
[2017-03-25] MEDS: Meropenem 1 GM in NS 110 ML IVPB SCH ×2 (13:53→22:08)
[2017-03-25] MEDS ORDERED: Heparin 2000 units/Ns 1000ml INJ ONE (14:00)
[2017-03-25] MEDS ORDERED: Lidocaine 1% Plain 30 ml INJ ONE (14:00)
--- NOTE | 2017-03-25 14:12 | General Progress Note ---
Assessment/Plan Problem List: (1) Dehydration ICD Codes: E86.0 - Dehydration SNOMED: 63688998 (2) Dementia ICD Codes: F03.90 - Unspecified dementia without behavioral disturbance SNOMED: 09019838 (3) Seizure ICD Codes: R56.9 - Unspecified convulsions SNOMED: 45371032 (4) Septic shock ICD Codes: A41.9 - Sepsis, unspecified organism; R65.21 - Severe sepsis with septic shock SNOMED: 71876262 (5) UTI (urinary tract infection) ICD Codes: N39.0 - Urinary tract infection, site not specified SNOMED: 78694663 Qualifiers: Qualified Codes: N30.01 - Acute cystitis with hematuria Status: progressing Assessment/Plan severe leukocytosis is improving septic shock elevated lft afebrile reviewed lab and meds and chart Subjective ROS Limited/Unobtainable: Yes Allergies: Coded Allergies: No Known Allergies (Verified , 09/26/12) Objective Last 24 Hour Vital Signs Date Time Temp Pulse Resp B/P (MAP) Pulse Ox O2 Delivery O2 Flow Rate FiO2 03/25/17 13:53 111/66 03/25/17 13:30 91 25 111/66 94 Nasal Cannula 3.0 03/25/17 13:00 96/44 03/25/17 13:00 89 25 96/44 95 Nasal Cannula 3.0 03/25/17 12:30 90 30 108/54 97 Nasal Cannula 3.0 03/25/17 12:00 97.7 94 22 85/63 99 Nasal Cannula 3.0 03/25/17 12:00 92 03/25/17 11:30 91 30 108/64 98 Nasal Cannula 3.0 03/25/17 11:00 95 21 115/87 97 Nasal Cannula 3.0 03/25/17 11:00 90/60 03/25/17 10:30 103 22 110/64 95 Nasal Cannula 3.0 03/25/17 10:00 95 24 95/61 95 Nasal Cannula 3.0 03/25/17 09:30 100 24 86/57 95 Nasal Cannula 3.0 03/25/17 09:08 93/49 03/25/17 09:00 94 23 98/54 100 Nasal Cannula 3.0 03/25/17 09:00 93 24 98/54 94 Nasal Cannula 3.0 03/25/17 08:30 93 25 90/45 100 Nasal Cannula 3.0 03/25/17 08:00 95/47 03/25/17 08:00 98.4 93 21 111/72 94 Nasal Cannula 3.0 03/25/17 08:00 98 03/25/17 07:30 97 22 95/58 96 Nasal Cannula 3.0 03/25/17 07:00 87 23 111/71 96 Nasal Cannula 3.0 03/25/17 06:56 Nasal Cannula 3.0 03/25/17 06:55 97 Nasal Cannula 3.0 03/25/17 06:30 97 23 94/52 98 Nasal Cannula 3.0 03/25/17 06:00 95 23 108/55 97 Nasal Cannula 3.0 03/25/17 05:37 95/47 03/25/17 05:30 94 16 98/51 95 Nasal Cannula 3.0 03/25/17 05:15 101 24 89/68 97 Nasal Cannula 3.0 03/25/17 05:00 101 23 90/58 97 Nasal Cannula 3.0 03/25/17 04:45 96 23 90/58 97 Nasal Cannula 3.0 03/25/17 04:30 96 22 101/53 96 Nasal Cannula 3.0 03/25/17 04:15 96 23 120/83 97 Nasal Cannula 3.0 03/25/17 04:00 98.1 95 21 128/68 96 Nasal Cannula 3.0 03/25/17 04:00 86 03/25/17 03:45 95 20 108/84 96 Nasal Cannula 3.0 03/25/17 03:30 98 28 110/51 95 Nasal Cannula 3.0 03/25/17 03:15 85 19 107/54 98 Nasal Cannula 3.0 03/25/17 03:00 96 19 112/84 98 Nasal Cannula 3.0 03/25/17 02:45 94 19 104/54 98 Nasal Cannula 3.0 03/25/17 02:30 96 19 104/85 98 Nasal Cannula 3.0 03/25/17 02:15 97 19 129/85 98 Nasal Cannula 3.0 03/25/17 02:00 97 19 106/54 98 Nasal Cannula 3.0 03/25/17 01:45 98 19 95/49 96 Nasal Cannula 3.0 03/25/17 01:30 97 25 209/71 96 Nasal Cannula 3.0 03/25/17 01:15 97 23 173/34 96 Nasal Cannula 3.0 03/25/17 01:00 98 24 79/56 96 Nasal Cannula 3.0 03/25/17 00:45 98 22 119/60 96 Nasal Cannula 3.0 03/25/17 00:30 100 30 107/66 98 Nasal Cannula 3.0 03/25/17 00:29 105/57 03/25/17 00:15 100 30 105/57 98 Nasal Cannula 3.0 03/25/17 00:00 97 24 105/57 98 Nasal Cannula 3.0 03/25/17 00:00 95 03/24/17 23:45 96 23 109/54 98 Nasal Cannula 3.0 03/24/17 23:30 98.6 96 23 99/56 96 Nasal Cannula 3.0 03/24/17 23:15 96 23 130/47 96 Nasal Cannula 3.0 03/24/17 23:00 96 23 114/89 96 Nasal Cannula 3.0 03/24/17 22:45 96 23 114/89 96 Nasal Cannula 3.0 03/24/17 22:30 95 21 103/59 95 Nasal Cannula 3.0 03/24/17 22:15 95 22 100/54 95 Nasal Cannula 3.0 03/24/17 22:00 95 22 113/75 95 Nasal Cannula 3.0 03/24/17 21:45 95 22 92/47 94 Nasal Cannula 3.0 03/24/17 21:30 95 23 92/54 95 Nasal Cannula 3.0 03/24/17 21:15 96 23 120/79 95 Nasal Cannula 3.0 03/24/17 21:00 95 20 96/46 94 Nasal Cannula 3.0 03/24/17 20:45 94 20 91/53 93 Nasal Cannula 3.0 03/24/17 20:30 94 20 92/48 95 Nasal Cannula 3.0 03/24/17 20:19 96 Nasal Cannula 3.0 03/24/17 20:19 Nasal Cannula 3.0 03/24/17 20:00 97 03/24/17 20:00 98 20 85/59 96 Nasal Cannula 3.0 03/24/17 19:49 102/48 03/24/17 19:30 98.3 97 33 107/80 97 Nasal Cannula 3.0 03/24/17 19:00 93 20 92/51 100 Nasal Cannula 3.0 03/24/17 18:30 94 20 97/49 100 Nasal Cannula 3.0 03/24/17 18:00 90 21 90/47 100 Nasal Cannula 3.0 03/24/17 17:30 88 20 92/53 100 Nasal Cannula 3.0 03/24/17 17:00 99 21 104/88 100 Nasal Cannula 3.0 03/24/17 16:30 97 21 119/63 100 Nasal Cannula 3.0 03/24/17 16:00 99 03/24/17 16:00 98.1 99 20 111/83 100 Nasal Cannula 3.0 03/24/17 15:30 84 21 94/58 100 Nasal Cannula 3.0 03/24/17 15:00 90 23 90/53 100 Nasal Cannula 3.0 03/24/17 14:39 93/50 03/24/17 14:30 95 23 106/54 100 Nasal Cannula 3.0 Intake and Output 03/25/17 03/26/17 19:00 07:00 Intake Total 765.00 ml Output Total 425 ml Balance 340.00 ml Intake Free Water 30 ml IV Total 735.00 ml Output Urine Total 425 ml Laboratory Tests 03/25/17 04:30: White Blood Count 52.1*H, Red Blood Count 3.54L, Hemoglobin 10.9L, Hematocrit 31.8L, Mean Corpuscular Volume 90, Mean Corpuscular Hemoglobin 30.7, Mean Corpuscular Hemoglobin Concent 34.2, Red Cell Distribution Width 16.0H, Platelet Count 84L, Mean Platelet Volume 13.5H, Neutrophils (%) (Auto) , Lymphocytes (%) (Auto) , Monocytes (%) (Auto) , Eosinophils (%) (Auto) , Basophils (%) (Auto) , Differential Total Cells Counted 100, Neutrophils % ( Manual) 70, Lymphocytes % (Manual) 2L, Monocytes % (Manual) 4, Eosinophils % ( Manual) 0, Basophils % (Manual) 0, Metamyelocytes % 2H, Myelocytes % 2H, Band Neutrophils 20H, Platelet Estimate DecreasedL, Platelet Morphology Normal, Anisocytosis 1+, Sodium Level 137, Potassium Level 3.9, Chloride Level 101, Carbon Dioxide Level 21, Anion Gap 15, Blood Urea Nitrogen 63H, Creatinine 2.1H , Estimat Glomerular Filtration Rate , Glucose Level 140H, Hemoglobin A1c 6.6H, Lactic Acid Level 2.10, Uric Acid 6.1, Calcium Level 7.6L, Phosphorus Level 3.3 , Magnesium Level 2.3, Total Bilirubin 1.7H, Direct Bilirubin 0.9H, Gamma Glutamyl Transpeptidase 44, Aspartate Amino Transf (AST/SGOT) 291H, Alanine Aminotransferase (ALT/SGPT) 456H, Alkaline Phosphatase 97, Total Creatine Kinase 651H, Troponin I 6.33*H, C-Reactive Protein, Quantitative 35.7H, Pro-B- Type Natriuretic Peptide [id number], Total Protein 5.2L, Albumin 2.5L, Globulin 2.7 , Albumin/Globulin Ratio 0.9L, Triglycerides Level 237H, Cholesterol Level 80, LDL Cholesterol 29L, HDL Cholesterol < 4, Cholesterol/HDL Ratio 20.0H 03/25/17 08:20: Arterial Blood pH 7.410, Arterial Blood Partial Pressure CO2 30.8L, Arterial Blood Partial Pressure O2 64.7L, Arterial Blood HCO3 19.4L, Arterial Blood Oxygen Saturation 91.8L, Arterial Blood Base Excess -4.2, Myron Test Positive 03/25/17 08:50: Lactic Acid Level 2.30H Height (Feet): 5 Height (Inches): 5.00 Weight (Pounds): 152 Sary Oakes MD Mar 25, 2017 14:12
[2017-03-25] MEDS ORDERED: Sterile Water Irrig 1000ml IRRIG ONE (16:26)
[2017-03-25] MEDS: Midodrine 10mg tab GT SCH (17:10)
--- NOTE | 2017-03-25 17:45 | Infectious Diseases Prog Note ---
Assessment/Plan Problems: (1) UTI (urinary tract infection) Assessment & Plan: due to MDR Citrobacter freundii, on meropenem , await final urine culture (2) Sepsis Assessment & Plan: now improving on meropenem and clindamycin , blood culture remained negative (3) Dehydration Assessment & Plan: continue ivf , monitor UOP, and electrolytes (4) ATN (acute tubular necrosis) Assessment & Plan: suspect due to sepsis, continue hydration, monitor UOP, renal is following (5) Suprapubic catheter Assessment & Plan: continue local care (6) Gross hematuria Assessment & Plan: rule out stone VS tumor, need renal US . Subjective ROS Limited/Unobtainable: Yes Allergies: Coded Allergies: No Known Allergies (Verified , 09/26/12) Subjective unresponsive, lying in bed. afebrile Objective Vital Signs Last 24 Hour Vital Signs Date Time Temp Pulse Resp B/P (MAP) Pulse Ox O2 Delivery O2 Flow Rate FiO2 03/25/17 17:30 82 27 101/47 98 Nasal Cannula 3.0 03/25/17 17:00 94 27 95/63 97 Nasal Cannula 3.0 03/25/17 16:30 95 24 110/54 100 Nasal Cannula 3.0 03/25/17 16:00 92 03/25/17 16:00 98.1 93 22 98/47 99 Nasal Cannula 3.0 03/25/17 16:00 98/47 03/25/17 15:30 90 24 116/37 98 Nasal Cannula 3.0 03/25/17 15:00 90 24 102/48 98 Nasal Cannula 3.0 03/25/17 15:00 102/48 03/25/17 14:30 91 26 111/77 98 Nasal Cannula 3.0 03/25/17 14:00 87 26 142/127 97 Nasal Cannula 3.0 03/25/17 13:53 111/66 03/25/17 13:30 91 25 111/66 94 Nasal Cannula 3.0 03/25/17 13:00 96/44 03/25/17 13:00 89 25 96/44 95 Nasal Cannula 3.0 03/25/17 12:30 90 30 108/54 97 Nasal Cannula 3.0 03/25/17 12:00 97.7 94 22 85/63 99 Nasal Cannula 3.0 03/25/17 12:00 92 03/25/17 11:30 91 30 108/64 98 Nasal Cannula 3.0 03/25/17 11:00 95 21 115/87 97 Nasal Cannula 3.0 03/25/17 11:00 90/60 03/25/17 10:30 103 22 110/64 95 Nasal Cannula 3.0 03/25/17 10:00 95 24 95/61 95 Nasal Cannula 3.0 03/25/17 09:30 100 24 86/57 95 Nasal Cannula 3.0 03/25/17 09:08 93/49 03/25/17 09:00 94 23 98/54 100 Nasal Cannula 3.0 03/25/17 09:00 93 24 98/54 94 Nasal Cannula 3.0 03/25/17 08:30 93 25 90/45 100 Nasal Cannula 3.0 03/25/17 08:00 95/47 03/25/17 08:00 98.4 93 21 111/72 94 Nasal Cannula 3.0 03/25/17 08:00 98 03/25/17 07:30 97 22 95/58 96 Nasal Cannula 3.0 03/25/17 07:00 87 23 111/71 96 Nasal Cannula 3.0 03/25/17 06:56 Nasal Cannula 3.0 03/25/17 06:55 97 Nasal Cannula 3.0 03/25/17 06:30 97 23 94/52 98 Nasal Cannula 3.0 03/25/17 06:00 95 23 108/55 97 Nasal Cannula 3.0 03/25/17 05:37 95/47 03/25/17 05:30 94 16 98/51 95 Nasal Cannula 3.0 03/25/17 05:15 101 24 89/68 97 Nasal Cannula 3.0 03/25/17 05:00 101 23 90/58 97 Nasal Cannula 3.0 03/25/17 04:45 96 23 90/58 97 Nasal Cannula 3.0 03/25/17 04:30 96 22 101/53 96 Nasal Cannula 3.0 03/25/17 04:15 96 23 120/83 97 Nasal Cannula 3.0 03/25/17 04:00 98.1 95 21 128/68 96 Nasal Cannula 3.0 03/25/17 04:00 86 03/25/17 03:45 95 20 108/84 96 Nasal Cannula 3.0 03/25/17 03:30 98 28 110/51 95 Nasal Cannula 3.0 03/25/17 03:15 85 19 107/54 98 Nasal Cannula 3.0 03/25/17 03:00 96 19 112/84 98 Nasal Cannula 3.0 03/25/17 02:45 94 19 104/54 98 Nasal Cannula 3.0 03/25/17 02:30 96 19 104/85 98 Nasal Cannula 3.0 03/25/17 02:15 97 19 129/85 98 Nasal Cannula 3.0 03/25/17 02:00 97 19 106/54 98 Nasal Cannula 3.0 03/25/17 01:45 98 19 95/49 96 Nasal Cannula 3.0 03/25/17 01:30 97 25 209/71 96 Nasal Cannula 3.0 03/25/17 01:15 97 23 173/34 96 Nasal Cannula 3.0 03/25/17 01:00 98 24 79/56 96 Nasal Cannula 3.0 03/25/17 00:45 98 22 119/60 96 Nasal Cannula 3.0 03/25/17 00:30 100 30 107/66 98 Nasal Cannula 3.0 03/25/17 00:29 105/57 03/25/17 00:15 100 30 105/57 98 Nasal Cannula 3.0 03/25/17 00:00 97 24 105/57 98 Nasal Cannula 3.0 03/25/17 00:00 95 03/24/17 23:45 96 23 109/54 98 Nasal Cannula 3.0 03/24/17 23:30 98.6 96 23 99/56 96 Nasal Cannula 3.0 03/24/17 23:15 96 23 130/47 96 Nasal Cannula 3.0 03/24/17 23:00 96 23 114/89 96 Nasal Cannula 3.0 03/24/17 22:45 96 23 114/89 96 Nasal Cannula 3.0 03/24/17 22:30 95 21 103/59 95 Nasal Cannula 3.0 03/24/17 22:15 95 22 100/54 95 Nasal Cannula 3.0 03/24/17 22:00 95 22 113/75 95 Nasal Cannula 3.0 03/24/17 21:45 95 22 92/47 94 Nasal Cannula 3.0 03/24/17 21:30 95 23 92/54 95 Nasal Cannula 3.0 03/24/17 21:15 96 23 120/79 95 Nasal Cannula 3.0 03/24/17 21:00 95 20 96/46 94 Nasal Cannula 3.0 03/24/17 20:45 94 20 91/53 93 Nasal Cannula 3.0 03/24/17 20:30 94 20 92/48 95 Nasal Cannula 3.0 03/24/17 20:19 96 Nasal Cannula 3.0 03/24/17 20:19 Nasal Cannula 3.0 03/24/17 20:00 97 03/24/17 20:00 98 20 85/59 96 Nasal Cannula 3.0 03/24/17 19:49 102/48 03/24/17 19:30 98.3 97 33 107/80 97 Nasal Cannula 3.0 03/24/17 19:00 93 20 92/51 100 Nasal Cannula 3.0 03/24/17 18:30 94 20 97/49 100 Nasal Cannula 3.0 03/24/17 18:00 90 21 90/47 100 Nasal Cannula 3.0 Height (Feet): 5 Height (Inches): 5.00 Weight (Pounds): 152 General Appearance: WD/WN, no acute distress HEENT: normocephalic, atraumatic, anicteric, mucous membranes moist Respiratory/Chest: chest wall non-tender, no respiratory distress, no accessory muscle use, decreased breath sounds, crackles/rales Cardiovascular: normal peripheral pulses, normal rate, regular rhythm, no gallop/murmur, no JVD Abdomen: normal bowel sounds, soft, non tender, no organomegaly, non distended , no mass Extremities: no cyanosis, no clubbing Skin: no rash, no lesions Neurologic/Psychiatric: unresponsiveness Microbiology Date/Time Source Procedure Growth Status 03/23/17 12:00 Urine,Clean Catch Urine Culture - Preliminary Resulted 03/22/17 23:29 Foot Left Gram Stain - Final Resulted 03/22/17 23:29 Wound Culture - Preliminary Staphylococcus Aureus Diphtheroids Resulted 03/22/17 23:29 Abdomen Gram Stain - Final Resulted 03/22/17 23:29 Abdomen Wound Culture - Preliminary NO GROWTH AFTER 48 HOURS Resulted Laboratory Tests Test 03/25/17 04:30 03/25/17 08:20 03/25/17 08:50 White Blood Count 52.1 K/UL (4.8-10.8) *H Red Blood Count 3.54 M/UL (4.70-6.10) L Hemoglobin 10.9 G/DL (14.2-18.0) L Hematocrit 31.8 % (42.0-52.0) L Mean Corpuscular Volume 90 FL (80-99) Mean Corpuscular Hemoglobin 30.7 PG (27.0-31.0) Mean Corpuscular Hemoglobin Concent 34.2 G/DL (32.0-36.0) Red Cell Distribution Width 16.0 % (11.6-14.8) H Platelet Count 84 K/UL (150-450) L Mean Platelet Volume 13.5 FL (6.5-10.1) H Neutrophils (%) (Auto) % (45.0-75.0) Lymphocytes (%) (Auto) % (20.0-45.0) Monocytes (%) (Auto) % (1.0-10.0) Eosinophils (%) (Auto) % (0.0-3.0) Basophils (%) (Auto) % (0.0-2.0) Differential Total Cells Counted 100 Neutrophils % (Manual) 70 % (45-75) Lymphocytes % (Manual) 2 % (20-45) L Monocytes % (Manual) 4 % (1-10) Eosinophils % (Manual) 0 % (0-3) Basophils % (Manual) 0 % (0-2) Metamyelocytes % 2 % (0-0) H Myelocytes % 2 % (0-0) H Band Neutrophils 20 % (0-8) H Platelet Estimate Decreased L Platelet Morphology Normal Anisocytosis 1+ Sodium Level 137 mEQ/L (135-145) Potassium Level 3.9 mEQ/L (3.4-4.9) Chloride Level 101 mEQ/L (98-107) Carbon Dioxide Level 21 mEQ/L (20-30) Anion Gap 15 (5-15) Blood Urea Nitrogen 63 mg/dL (7-23) H Creatinine 2.1 mg/dL (0.7-1.2) H Estimat Glomerular Filtration Rate mL/min (>60) Glucose Level 140 mg/dL (74-106) H Hemoglobin A1c 6.6 % (< 6.0) H Lactic Acid Level 2.10 mmol/L (0.66-2.22) 2.30 mmol/L (0.66-2.22) H Uric Acid 6.1 mg/dL (3.0-7.5) Calcium Level 7.6 mg/dL (8.6-10.2) L Phosphorus Level 3.3 mg/dL (2.5-4.8) Magnesium Level 2.3 mg/dL (1.7-2.5) Total Bilirubin 1.7 mg/dL (0.0-1.2) H Direct Bilirubin 0.9 mg/dL (0.1-0.3) H Gamma Glutamyl Transpeptidase 44 U/L (8-61) Aspartate Amino Transf (AST/SGOT) 291 U/L (5-40) H Alanine Aminotransferase (ALT/SGPT) 456 U/L (3-41) H Alkaline Phosphatase 97 U/L (40-129) Total Creatine Kinase 651 U/L (38-174) H Troponin I 6.33 ng/mL (<=0.30) *H C-Reactive Protein, Quantitative 35.7 mg/dL (< 0.5) H Pro-B-Type Natriuretic Peptide 50944 pg/mL (0-450) H Total Protein 5.2 g/dL (6.6-8.7) L Albumin 2.5 g/dL (3.5-5.2) L Globulin 2.7 g/dL Albumin/Globulin Ratio 0.9 (1.0-2.7) L Triglycerides Level 237 mg/dL (< 150) H Cholesterol Level 80 mg/dL (< 200) LDL Cholesterol 29 mg/dL (60-99) L HDL Cholesterol < 4 mg/dL (> 60) Cholesterol/HDL Ratio 20.0 (3.3-4.4) H Arterial Blood pH 7.410 (7.350-7.450) Arterial Blood Partial Pressure CO2 30.8 mmHg (35.0-45.0) L Arterial Blood Partial Pressure O2 64.7 mmHg (75.0-100.0) L Arterial Blood HCO3 19.4 mmol/L (22.0-26.0) L Arterial Blood Oxygen Saturation 91.8 % (92.0-98.0) L Arterial Blood Base Excess -4.2 Myron Test Positive Current Medications Medications (Trade) Dose Ordered Sig/Matt Route PRN Reason Start Time Stop Time Status Last Admin Dose Admin Acetaminophen (Tylenol) 650 mg Q4H PRN ORAL FEVER 03/23/17 10:15 04/22/17 10:14 03/23/17 19:34 Acetaminophen (Tylenol) 650 mg Q4H PRN ORAL Mild Pain (Pain Scale 1-3) 03/23/17 10:15 04/22/17 10:14 Chlorhexidine Gluconate (Mari-Hex 2%) 1 applic DAILY TOPIC 03/23/17 21:00 04/22/17 20:59 03/25/17 05:37 Clindamycin HCl/ Dextrose 50 ml @ 100 mls/hr Q8H IV 03/23/17 10:00 03/30/17 09:59 03/25/17 17:10 Clonidine HCl (Catapres) 0.1 mg Q4H PRN ORAL For High Blood Pressure 03/23/17 07:00 04/22/17 06:59 Lansoprazole (Prevacid) 30 mg DAILY ORAL 03/24/17 09:00 04/23/17 08:59 03/25/17 09:07 Lorazepam (Ativan 2mg/ml 1ml) 0.5 mg Q4H PRN IV For Anxiety 03/23/17 10:15 03/30/17 10:14 Meropenem 1 gm/ Sodium Chloride 110 ml @ 220 mls/hr Q8HR IVPB 03/25/17 14:00 03/30/17 13:59 03/25/17 13:53 Midodrine (Pro-Amatine) 10 mg THREE TIMES A DAY GT 03/25/17 18:00 04/24/17 17:59 03/25/17 17:10 Morphine Sulfate (Morphine Sulfate) 2 mg Q6H PRN IVP Moderate Pain (Pain Scale 4-6) 03/23/17 10:15 03/30/17 10:14 Norepinephrine Bitartrate 4 mg/ Dextrose 250 ml @ 0 mls/hr Q24H IV 03/23/17 21:30 04/22/17 21:29 03/25/17 13:53 Ondansetron HCl (Zofran) 4 mg Q6H PRN IVP Nausea & Vomiting 03/23/17 10:15 04/22/17 10:14 Polyethylene Glycol (Miralax) 17 gm DAILY PRN ORAL Constipation 03/23/17 10:15 04/22/17 10:14 Sodium Chloride 1,000 ml @ 125 mls/hr Q8H IV 03/23/17 21:00 04/22/17 20:59 03/25/17 11:33 Jose Juarez M.D. Mar 25, 2017 17:45
--- NOTE | 2017-03-25 18:07 | Urology Progress Note ---
Assessment/Plan Status: stable Assessment/Plan doing ok. 1. SP tube to gravity till improves. Subjective Date patient seen: Mar 25, 2017 Time patient seen: 18:05 ROS Limited/Unobtainable: Yes Allergies: Coded Allergies: No Known Allergies (Verified , 09/26/12) Subjective pressor requirement decreasing. SP tube draining nicely. Objective Last 24 Hour Vital Signs Date Time Temp Pulse Resp B/P (MAP) Pulse Ox O2 Delivery O2 Flow Rate FiO2 03/25/17 17:30 82 27 101/47 98 Nasal Cannula 3.0 03/25/17 17:00 94 27 95/63 97 Nasal Cannula 3.0 03/25/17 16:30 95 24 110/54 100 Nasal Cannula 3.0 03/25/17 16:00 92 03/25/17 16:00 98.1 93 22 98/47 99 Nasal Cannula 3.0 03/25/17 16:00 98/47 03/25/17 15:30 90 24 116/37 98 Nasal Cannula 3.0 03/25/17 15:00 90 24 102/48 98 Nasal Cannula 3.0 03/25/17 15:00 102/48 03/25/17 14:30 91 26 111/77 98 Nasal Cannula 3.0 03/25/17 14:00 87 26 142/127 97 Nasal Cannula 3.0 03/25/17 13:53 111/66 03/25/17 13:30 91 25 111/66 94 Nasal Cannula 3.0 03/25/17 13:00 96/44 03/25/17 13:00 89 25 96/44 95 Nasal Cannula 3.0 03/25/17 12:30 90 30 108/54 97 Nasal Cannula 3.0 03/25/17 12:00 97.7 94 22 85/63 99 Nasal Cannula 3.0 03/25/17 12:00 92 03/25/17 11:30 91 30 108/64 98 Nasal Cannula 3.0 03/25/17 11:00 95 21 115/87 97 Nasal Cannula 3.0 03/25/17 11:00 90/60 03/25/17 10:30 103 22 110/64 95 Nasal Cannula 3.0 03/25/17 10:00 95 24 95/61 95 Nasal Cannula 3.0 03/25/17 09:30 100 24 86/57 95 Nasal Cannula 3.0 03/25/17 09:08 93/49 03/25/17 09:00 94 23 98/54 100 Nasal Cannula 3.0 03/25/17 09:00 93 24 98/54 94 Nasal Cannula 3.0 03/25/17 08:30 93 25 90/45 100 Nasal Cannula 3.0 03/25/17 08:00 95/47 03/25/17 08:00 98.4 93 21 111/72 94 Nasal Cannula 3.0 03/25/17 08:00 98 03/25/17 07:30 97 22 95/58 96 Nasal Cannula 3.0 03/25/17 07:00 87 23 111/71 96 Nasal Cannula 3.0 03/25/17 06:56 Nasal Cannula 3.0 03/25/17 06:55 97 Nasal Cannula 3.0 03/25/17 06:30 97 23 94/52 98 Nasal Cannula 3.0 03/25/17 06:00 95 23 108/55 97 Nasal Cannula 3.0 03/25/17 05:37 95/47 03/25/17 05:30 94 16 98/51 95 Nasal Cannula 3.0 03/25/17 05:15 101 24 89/68 97 Nasal Cannula 3.0 03/25/17 05:00 101 23 90/58 97 Nasal Cannula 3.0 03/25/17 04:45 96 23 90/58 97 Nasal Cannula 3.0 03/25/17 04:30 96 22 101/53 96 Nasal Cannula 3.0 03/25/17 04:15 96 23 120/83 97 Nasal Cannula 3.0 03/25/17 04:00 98.1 95 21 128/68 96 Nasal Cannula 3.0 03/25/17 04:00 86 03/25/17 03:45 95 20 108/84 96 Nasal Cannula 3.0 03/25/17 03:30 98 28 110/51 95 Nasal Cannula 3.0 03/25/17 03:15 85 19 107/54 98 Nasal Cannula 3.0 03/25/17 03:00 96 19 112/84 98 Nasal Cannula 3.0 03/25/17 02:45 94 19 104/54 98 Nasal Cannula 3.0 03/25/17 02:30 96 19 104/85 98 Nasal Cannula 3.0 03/25/17 02:15 97 19 129/85 98 Nasal Cannula 3.0 03/25/17 02:00 97 19 106/54 98 Nasal Cannula 3.0 03/25/17 01:45 98 19 95/49 96 Nasal Cannula 3.0 03/25/17 01:30 97 25 209/71 96 Nasal Cannula 3.0 03/25/17 01:15 97 23 173/34 96 Nasal Cannula 3.0 03/25/17 01:00 98 24 79/56 96 Nasal Cannula 3.0 03/25/17 00:45 98 22 119/60 96 Nasal Cannula 3.0 03/25/17 00:30 100 30 107/66 98 Nasal Cannula 3.0 03/25/17 00:29 105/57 03/25/17 00:15 100 30 105/57 98 Nasal Cannula 3.0 03/25/17 00:00 97 24 105/57 98 Nasal Cannula 3.0 03/25/17 00:00 95 03/24/17 23:45 96 23 109/54 98 Nasal Cannula 3.0 03/24/17 23:30 98.6 96 23 99/56 96 Nasal Cannula 3.0 03/24/17 23:15 96 23 130/47 96 Nasal Cannula 3.0 03/24/17 23:00 96 23 114/89 96 Nasal Cannula 3.0 03/24/17 22:45 96 23 114/89 96 Nasal Cannula 3.0 03/24/17 22:30 95 21 103/59 95 Nasal Cannula 3.0 03/24/17 22:15 95 22 100/54 95 Nasal Cannula 3.0 03/24/17 22:00 95 22 113/75 95 Nasal Cannula 3.0 03/24/17 21:45 95 22 92/47 94 Nasal Cannula 3.0 03/24/17 21:30 95 23 92/54 95 Nasal Cannula 3.0 03/24/17 21:15 96 23 120/79 95 Nasal Cannula 3.0 03/24/17 21:00 95 20 96/46 94 Nasal Cannula 3.0 03/24/17 20:45 94 20 91/53 93 Nasal Cannula 3.0 03/24/17 20:30 94 20 92/48 95 Nasal Cannula 3.0 03/24/17 20:19 96 Nasal Cannula 3.0 03/24/17 20:19 Nasal Cannula 3.0 03/24/17 20:00 97 03/24/17 20:00 98 20 85/59 96 Nasal Cannula 3.0 03/24/17 19:49 102/48 03/24/17 19:30 98.3 97 33 107/80 97 Nasal Cannula 3.0 03/24/17 19:00 93 20 92/51 100 Nasal Cannula 3.0 03/24/17 18:30 94 20 97/49 100 Nasal Cannula 3.0 Intake and Output 03/25/17 03/26/17 19:00 07:00 Intake Total 1276.25 ml Output Total 805 ml Balance 471.25 ml Intake Free Water 30 ml IV Total 1246.25 ml Output Urine Total 805 ml # Bowel Movements 2 Laboratory Tests 03/25/17 04:30: White Blood Count 52.1*H, Red Blood Count 3.54L, Hemoglobin 10.9L, Hematocrit 31.8L, Mean Corpuscular Volume 90, Mean Corpuscular Hemoglobin 30.7, Mean Corpuscular Hemoglobin Concent 34.2, Red Cell Distribution Width 16.0H, Platelet Count 84L, Mean Platelet Volume 13.5H, Neutrophils (%) (Auto) , Lymphocytes (%) (Auto) , Monocytes (%) (Auto) , Eosinophils (%) (Auto) , Basophils (%) (Auto) , Differential Total Cells Counted 100, Neutrophils % ( Manual) 70, Lymphocytes % (Manual) 2L, Monocytes % (Manual) 4, Eosinophils % ( Manual) 0, Basophils % (Manual) 0, Metamyelocytes % 2H, Myelocytes % 2H, Band Neutrophils 20H, Platelet Estimate DecreasedL, Platelet Morphology Normal, Anisocytosis 1+, Sodium Level 137, Potassium Level 3.9, Chloride Level 101, Carbon Dioxide Level 21, Anion Gap 15, Blood Urea Nitrogen 63H, Creatinine 2.1H , Estimat Glomerular Filtration Rate , Glucose Level 140H, Hemoglobin A1c 6.6H, Lactic Acid Level 2.10, Uric Acid 6.1, Calcium Level 7.6L, Phosphorus Level 3.3 , Magnesium Level 2.3, Total Bilirubin 1.7H, Direct Bilirubin 0.9H, Gamma Glutamyl Transpeptidase 44, Aspartate Amino Transf (AST/SGOT) 291H, Alanine Aminotransferase (ALT/SGPT) 456H, Alkaline Phosphatase 97, Total Creatine Kinase 651H, Troponin I 6.33*H, C-Reactive Protein, Quantitative 35.7H, Pro-B- Type Natriuretic Peptide 05604B, Total Protein 5.2L, Albumin 2.5L, Globulin 2.7 , Albumin/Globulin Ratio 0.9L, Triglycerides Level 237H, Cholesterol Level 80, LDL Cholesterol 29L, HDL Cholesterol < 4, Cholesterol/HDL Ratio 20.0H 03/25/17 08:20: Arterial Blood pH 7.410, Arterial Blood Partial Pressure CO2 30.8L, Arterial Blood Partial Pressure O2 64.7L, Arterial Blood HCO3 19.4L, Arterial Blood Oxygen Saturation 91.8L, Arterial Blood Base Excess -4.2, Myron Test Positive 03/25/17 08:50: Lactic Acid Level 2.30H Height (Feet): 5 Height (Inches): 5.00 Weight (Pounds): 152 General Appearance: no apparent distress Abdomen: soft, other - SP tube in good position draining yellow urine Juan Alberto Herring M.D. Mar 25, 2017 18:07
--- NOTE | 2017-03-25 21:30 | Consultation ---
DATE OF CONSULTATION: 03/23/2017 CARDIOLOGY CONSULTATION CONSULTING PHYSICIAN: Jeremie Brooks M.D. REFERRING PHYSICIAN: Sary Oakes M.D. REASON FOR CONSULTATION: Management of hypotension/septic shock. HISTORY OF PRESENT ILLNESS: The patient is seen in the intensive care unit of [facility] for hypotension. The patient is a very unfortunate 76-year-old gentleman, who is transferred from telemetry to intensive care unit after his blood pressure dropped to 49/28 mmHg. Cardiology consultation was made at the request of Dr. Oakes for management of hypotension. The patient was initially admitted for sepsis by the primary care physician. The patient is a resident of a correction facility and nonverbal. Initial blood pressure in the emergency department upon the patient's arrival was 118/60 mmHg, he had temperature of 102 degrees, and heart rate of 104. In the emergency department, the patient received IV antibiotics for urosepsis and also normal saline and Tylenol. Urine and blood culture were taken. The patient had chest x-ray in the emergency department which showed no evidence of acute cardiopulmonary disease. The patient was admitted to telemetry; however, due to drop of blood pressure, he was transferred to intensive care unit for further management and evaluation. PAST MEDICAL HISTORY: Includes history of hypertension, history of COPD, history of dementia, and history of coronary artery disease. PAST SURGICAL HISTORY: None. MEDICATIONS: List of medications, acetaminophen 650 mg G-tube q.6 hours p.r.n. pain or temperature or fever above 101 degrees, amlodipine 5 mg G-tube daily, aspirin 81 mg G-tube daily, Lipitor 40 mg G-tube daily, Dulcolax 10 mg rectal daily p.r.n. constipation, artificial tears one drop once daily both eyes, Aricept 10 mg G-tube nightly, heparin sodium 5000 units subcutaneous q.8 hours, hydralazine 10 mg G-tube q.6 hours p.r.n. high blood pressure, magnesium hydroxide 30 mL G-tube daily, Namenda 10 mg G-tube daily, multivitamin 15 mL G-tube daily, Fleet Enema 133 mL rectal daily, Senokot 17.2 mg G-tube daily, and vitamin C 500 mg G-tube daily. ALLERGIES: No known drug allergies. SOCIAL HISTORY: He is a resident of a nursing facility under the care of Dr. Oakes. There is no recent history of tobacco, alcohol, or illicit drug use. FAMILY HISTORY: No premature coronary artery disease in the first-degree relatives according to the records. REVIEW OF SYSTEMS: Unfortunately, the patient is nonverbal and cannot provide any information regarding his current health status. PHYSICAL EXAMINATION: GENERAL: The patient is a very frail, cachectic 76-year-old gentleman, who is nonverbal. VITAL SIGNS: Blood pressure 118/60, pulse 104, respirations 16, O2 saturation 95% on nasal cannula, and temperature 102 degrees were the vital signs at the time of admission. The vital signs at this time, blood pressure of 60/28, pulse 101, respiration 30, and O2 saturation 99% on FiO2 of 100%. HEENT: Atraumatic and normocephalic. Anicteric. Pupils are equal, round, and reactive to light and accommodation. Bitemporal wasting. NECK: JVP less than 5 cm. No carotid bruit. Carotid upstrokes 2+ bilaterally. CARDIOVASCULAR: Normal S1 and S2. Regular rate and rhythm. Tachycardic. No murmurs, gallops, or rubs. LUNGS: Diminished breath sounds in both bases. ABDOMEN: Soft, nontender, and nondistended. Active bowel sounds. There is some erythema around the umbilicus. EXTREMITIES: Dry skin with bruises and abrasions. There is a right heel wound, otherwise no evidence of edema. LABORATORY FINDINGS: WBC was 28.1, hemoglobin 16.2, hematocrit 46.2, and platelet count 253,000. Sodium 139, potassium 4.4, chloride 96, bicarbonate 29, BUN 32, creatinine 0.8, glucose 196, and calcium 9.8. Troponin I less than 0.3. Chest x-ray at the time of admission showed no acute cardiopulmonary disease, mild basal scarring versus atelectasis. A 12-lead electrocardiogram at the time of arrival, sinus tachycardia at rate of 101 with frequent premature ventricular complexes. The patient also had 2D echocardiography on 03/22/2017, showing normal LV systolic function with LVEF of 55% to 60%, mild aortic root dilatation, trace aortic regurgitation, and grade 1 LV diastolic dysfunction. ASSESSMENT AND PLAN: This is a very unfortunate 76-year-old gentleman, who is seen in cardiology consultation at the request of Dr. Oakes. 1. Hypotension, most likely due to septic shock in view of leukocytosis, bandemia of 17%, and an abnormal urinalysis. As the patient is already on intravenous antibiotics, I will recommend 1000 mL of normal saline and check for the urine output response, systolic blood pressure, and mean arterial pressure. If the mean arterial pressure remains to be less than 65 mmHg, I would like to start the patient on Levophed 5 mcg/kg/minute and titrate up to maintain mean arterial pressure of 65 mmHg. A 2D echocardiography shows normal LV systolic function with no evidence of congestive heart failure. It was brought to my attention by the nurse that the patient has already received 2 liters of normal saline as intravenous bolus prior to his arrival to intensive care unit with very little response. 2. History of dementia/nonverbal. 3. Sinus tachycardia, likely secondary to sepsis and hypotension. The treatment of this condition is the treatment of the underlying disorder. 4. History of chronic obstructive pulmonary disease. 5. History of hypertension. Currently, all the blood pressure medication on hold. 6. History of coronary artery disease, the detail of which is unknown. The total amount of time spent in evaluation of this patient in the intensive care unit of [facility] is 45 minutes. I would like to thank, Dr. Oakes, for the courtesy of this consultation. Jeremie rBooks M.D. DR: STEFFEN JOB#: [id number] CC:
--- NOTE | 2017-03-25 23:24 | General Progress Note ---
Assessment/Plan Status: stable Assessment/Plan IMPRESSION: 1. Leukocytosis with left shift. --> WBC count critical value, on antibiotic IV. Improving steadily 2. Leukemoid reaction. 3. Polycythemia, reactive, secondary to sepsis. 4. Erythrocytosis, reactive. 5. Bandemia. 6. Acute renal insufficiency. 7. Transaminitis. 8. Bilirubinemia. 9. Encephalopathy. 10. Sepsis. 11. Septic shock. 12. Hypertension. 13. Chronic obstructive pulmonary disease exacerbation. 14. Respiratory failure. 15. Dysphagia. 16. Gastrostomy tube placement. 17. History of cerebral infarct, history of cerebrovascular accident. 18. Dementia. 19. Alzheimer's. 20. Seizure. 21. Weakness. 22. Failure to thrive. RECOMMENDATIONS: 1. Watch count. 2. Watch coagulopathy. 3. Antibiotic IV. 4. Heparin subcutaneous. 5. PRBC transfusion p.r.n. basis. 6. Respiratory treatment. 7. Infectious Disease followup. 8. Pulmonary followup. 9. Cardiology followup. 10. Skin care. 11. Nutrition. 12. Close followup. 13. Continue current treatment. Subjective Date patient seen: Mar 25, 2017 Time patient seen: 06:00 Hematologic/Lymphatic: Reports: other - Leukocytosis Allergies: Coded Allergies: No Known Allergies (Verified , 09/26/12) Subjective Ongoing tube feedings. Obtunded. Patient in ICU. Afebrile. Leukocytosis improving. Objective Last 24 Hour Vital Signs Date Time Temp Pulse Resp B/P (MAP) Pulse Ox O2 Delivery O2 Flow Rate FiO2 03/25/17 21:43 Nasal Cannula 3.0 03/25/17 21:43 96 Nasal Cannula 3.0 03/25/17 19:00 102/85 03/25/17 19:00 88 27 95/74 99 Nasal Cannula 3.0 03/25/17 18:30 81 24 98/49 96 Nasal Cannula 3.0 03/25/17 18:00 81 27 99/50 96 Nasal Cannula 3.0 03/25/17 18:00 85/67 03/25/17 17:30 82 27 101/47 98 Nasal Cannula 3.0 03/25/17 17:00 94 27 95/63 97 Nasal Cannula 3.0 03/25/17 16:30 95 24 110/54 100 Nasal Cannula 3.0 03/25/17 16:00 92 03/25/17 16:00 98.1 93 22 98/47 99 Nasal Cannula 3.0 03/25/17 16:00 98/47 03/25/17 15:30 90 24 116/37 98 Nasal Cannula 3.0 03/25/17 15:00 90 24 102/48 98 Nasal Cannula 3.0 03/25/17 15:00 102/48 03/25/17 14:30 91 26 111/77 98 Nasal Cannula 3.0 03/25/17 14:00 87 26 142/127 97 Nasal Cannula 3.0 03/25/17 13:53 111/66 03/25/17 13:30 91 25 111/66 94 Nasal Cannula 3.0 03/25/17 13:00 96/44 03/25/17 13:00 89 25 96/44 95 Nasal Cannula 3.0 03/25/17 12:30 90 30 108/54 97 Nasal Cannula 3.0 03/25/17 12:00 97.7 94 22 85/63 99 Nasal Cannula 3.0 03/25/17 12:00 92 03/25/17 11:30 91 30 108/64 98 Nasal Cannula 3.0 03/25/17 11:00 95 21 115/87 97 Nasal Cannula 3.0 03/25/17 11:00 90/60 03/25/17 10:30 103 22 110/64 95 Nasal Cannula 3.0 03/25/17 10:00 95 24 95/61 95 Nasal Cannula 3.0 03/25/17 09:30 100 24 86/57 95 Nasal Cannula 3.0 03/25/17 09:08 93/49 03/25/17 09:00 94 23 98/54 100 Nasal Cannula 3.0 03/25/17 09:00 93 24 98/54 94 Nasal Cannula 3.0 03/25/17 08:30 93 25 90/45 100 Nasal Cannula 3.0 03/25/17 08:00 95/47 03/25/17 08:00 98.4 93 21 111/72 94 Nasal Cannula 3.0 03/25/17 08:00 98 03/25/17 07:30 97 22 95/58 96 Nasal Cannula 3.0 03/25/17 07:00 87 23 111/71 96 Nasal Cannula 3.0 03/25/17 06:56 Nasal Cannula 3.0 03/25/17 06:55 97 Nasal Cannula 3.0 03/25/17 06:30 97 23 94/52 98 Nasal Cannula 3.0 03/25/17 06:00 95 23 108/55 97 Nasal Cannula 3.0 03/25/17 05:37 95/47 03/25/17 05:30 94 16 98/51 95 Nasal Cannula 3.0 03/25/17 05:15 101 24 89/68 97 Nasal Cannula 3.0 03/25/17 05:00 101 23 90/58 97 Nasal Cannula 3.0 03/25/17 04:45 96 23 90/58 97 Nasal Cannula 3.0 03/25/17 04:30 96 22 101/53 96 Nasal Cannula 3.0 03/25/17 04:15 96 23 120/83 97 Nasal Cannula 3.0 03/25/17 04:00 98.1 95 21 128/68 96 Nasal Cannula 3.0 03/25/17 04:00 86 03/25/17 03:45 95 20 108/84 96 Nasal Cannula 3.0 03/25/17 03:30 98 28 110/51 95 Nasal Cannula 3.0 03/25/17 03:15 85 19 107/54 98 Nasal Cannula 3.0 03/25/17 03:00 96 19 112/84 98 Nasal Cannula 3.0 03/25/17 02:45 94 19 104/54 98 Nasal Cannula 3.0 03/25/17 02:30 96 19 104/85 98 Nasal Cannula 3.0 03/25/17 02:15 97 19 129/85 98 Nasal Cannula 3.0 03/25/17 02:00 97 19 106/54 98 Nasal Cannula 3.0 03/25/17 01:45 98 19 95/49 96 Nasal Cannula 3.0 03/25/17 01:30 97 25 209/71 96 Nasal Cannula 3.0 03/25/17 01:15 97 23 173/34 96 Nasal Cannula 3.0 03/25/17 01:00 98 24 79/56 96 Nasal Cannula 3.0 03/25/17 00:45 98 22 119/60 96 Nasal Cannula 3.0 03/25/17 00:30 100 30 107/66 98 Nasal Cannula 3.0 03/25/17 00:29 105/57 03/25/17 00:15 100 30 105/57 98 Nasal Cannula 3.0 03/25/17 00:00 97 24 105/57 98 Nasal Cannula 3.0 03/25/17 00:00 95 03/24/17 23:45 96 23 109/54 98 Nasal Cannula 3.0 03/24/17 23:30 98.6 96 23 99/56 96 Nasal Cannula 3.0 Intake and Output 03/25/17 03/26/17 19:00 07:00 Intake Total 1637.50 ml Output Total 895 ml 250 ml Balance 742.50 ml -250 ml Intake Free Water 30 ml IV Total 1557.50 ml Other 50 ml Output Urine Total 895 ml 250 ml # Bowel Movements 2 1 Laboratory Tests 03/25/17 04:30: White Blood Count 52.1*H, Red Blood Count 3.54L, Hemoglobin 10.9L, Hematocrit 31.8L, Mean Corpuscular Volume 90, Mean Corpuscular Hemoglobin 30.7, Mean Corpuscular Hemoglobin Concent 34.2, Red Cell Distribution Width 16.0H, Platelet Count 84L, Mean Platelet Volume 13.5H, Neutrophils (%) (Auto) , Lymphocytes (%) (Auto) , Monocytes (%) (Auto) , Eosinophils (%) (Auto) , Basophils (%) (Auto) , Differential Total Cells Counted 100, Neutrophils % ( Manual) 70, Lymphocytes % (Manual) 2L, Monocytes % (Manual) 4, Eosinophils % ( Manual) 0, Basophils % (Manual) 0, Metamyelocytes % 2H, Myelocytes % 2H, Band Neutrophils 20H, Platelet Estimate DecreasedL, Platelet Morphology Normal, Anisocytosis 1+, Sodium Level 137, Potassium Level 3.9, Chloride Level 101, Carbon Dioxide Level 21, Anion Gap 15, Blood Urea Nitrogen 63H, Creatinine 2.1H , Estimat Glomerular Filtration Rate , Glucose Level 140H, Hemoglobin A1c 6.6H, Lactic Acid Level 2.10, Uric Acid 6.1, Calcium Level 7.6L, Phosphorus Level 3.3 , Magnesium Level 2.3, Total Bilirubin 1.7H, Direct Bilirubin 0.9H, Gamma Glutamyl Transpeptidase 44, Aspartate Amino Transf (AST/SGOT) 291H, Alanine Aminotransferase (ALT/SGPT) 456H, Alkaline Phosphatase 97, Total Creatine Kinase 651H, Troponin I 6.33*H, C-Reactive Protein, Quantitative 35.7H, Pro-B- Type Natriuretic Peptide 71272L, Total Protein 5.2L, Albumin 2.5L, Globulin 2.7 , Albumin/Globulin Ratio 0.9L, Triglycerides Level 237H, Cholesterol Level 80, LDL Cholesterol 29L, HDL Cholesterol < 4, Cholesterol/HDL Ratio 20.0H 03/25/17 08:20: Arterial Blood pH 7.410, Arterial Blood Partial Pressure CO2 30.8L, Arterial Blood Partial Pressure O2 64.7L, Arterial Blood HCO3 19.4L, Arterial Blood Oxygen Saturation 91.8L, Arterial Blood Base Excess -4.2, Myron Test Positive 03/25/17 08:50: Lactic Acid Level 2.30H Height (Feet): 5 Height (Inches): 5.00 Weight (Pounds): 152 General Appearance: confused Respiratory/Chest: decreased breath sounds Abdomen: non tender, soft LYRIC SCHWARTZ Mar 25, 2017 23:24
--- NOTE | 2017-03-25 23:57 | Cardiology Progress Note ---
Assessment/Plan Assessment/Plan 1. Septic shock with multi-organ failure, on minimal dose of Levophed gtt, may be able to taper off as MAP >65 mmHg, continue IVF therapy. 2. Normal LV systolic function with no wall motion abnormalities. 3. Elevated troponin level, possibly combination of OSCAR and hypotension, cannot exclude NSTEMI (demand-ischemia), not a suitable candidate for ischemic work up given underlying mental status, 12 lead ECG shows no STT changes, Echo with no wall motion abnormalities. 4. Possible shock liver 5. OSCAR, mild improvement. Subjective Subjective Sinus rhythm at 85. On Levophed gtt 1 mcg/kh/min. Non-verbal Mild respiratory distress Objective Last 24 Hour Vital Signs Date Time Temp Pulse Resp B/P (MAP) Pulse Ox O2 Delivery O2 Flow Rate FiO2 03/25/17 21:43 Nasal Cannula 3.0 03/25/17 21:43 96 Nasal Cannula 3.0 03/25/17 19:00 102/85 03/25/17 19:00 88 27 95/74 99 Nasal Cannula 3.0 03/25/17 18:30 81 24 98/49 96 Nasal Cannula 3.0 03/25/17 18:00 81 27 99/50 96 Nasal Cannula 3.0 03/25/17 18:00 85/67 03/25/17 17:30 82 27 101/47 98 Nasal Cannula 3.0 03/25/17 17:00 94 27 95/63 97 Nasal Cannula 3.0 03/25/17 16:30 95 24 110/54 100 Nasal Cannula 3.0 03/25/17 16:00 92 03/25/17 16:00 98.1 93 22 98/47 99 Nasal Cannula 3.0 03/25/17 16:00 98/47 03/25/17 15:30 90 24 116/37 98 Nasal Cannula 3.0 03/25/17 15:00 90 24 102/48 98 Nasal Cannula 3.0 03/25/17 15:00 102/48 03/25/17 14:30 91 26 111/77 98 Nasal Cannula 3.0 03/25/17 14:00 87 26 142/127 97 Nasal Cannula 3.0 03/25/17 13:53 111/66 03/25/17 13:30 91 25 111/66 94 Nasal Cannula 3.0 03/25/17 13:00 96/44 03/25/17 13:00 89 25 96/44 95 Nasal Cannula 3.0 03/25/17 12:30 90 30 108/54 97 Nasal Cannula 3.0 03/25/17 12:00 97.7 94 22 85/63 99 Nasal Cannula 3.0 03/25/17 12:00 92 03/25/17 11:30 91 30 108/64 98 Nasal Cannula 3.0 03/25/17 11:00 95 21 115/87 97 Nasal Cannula 3.0 03/25/17 11:00 90/60 03/25/17 10:30 103 22 110/64 95 Nasal Cannula 3.0 03/25/17 10:00 95 24 95/61 95 Nasal Cannula 3.0 03/25/17 09:30 100 24 86/57 95 Nasal Cannula 3.0 03/25/17 09:08 93/49 03/25/17 09:00 94 23 98/54 100 Nasal Cannula 3.0 03/25/17 09:00 93 24 98/54 94 Nasal Cannula 3.0 03/25/17 08:30 93 25 90/45 100 Nasal Cannula 3.0 03/25/17 08:00 95/47 03/25/17 08:00 98.4 93 21 111/72 94 Nasal Cannula 3.0 03/25/17 08:00 98 03/25/17 07:30 97 22 95/58 96 Nasal Cannula 3.0 03/25/17 07:00 87 23 111/71 96 Nasal Cannula 3.0 03/25/17 06:56 Nasal Cannula 3.0 03/25/17 06:55 97 Nasal Cannula 3.0 03/25/17 06:30 97 23 94/52 98 Nasal Cannula 3.0 03/25/17 06:00 95 23 108/55 97 Nasal Cannula 3.0 03/25/17 05:37 95/47 03/25/17 05:30 94 16 98/51 95 Nasal Cannula 3.0 03/25/17 05:15 101 24 89/68 97 Nasal Cannula 3.0 03/25/17 05:00 101 23 90/58 97 Nasal Cannula 3.0 03/25/17 04:45 96 23 90/58 97 Nasal Cannula 3.0 03/25/17 04:30 96 22 101/53 96 Nasal Cannula 3.0 03/25/17 04:15 96 23 120/83 97 Nasal Cannula 3.0 03/25/17 04:00 98.1 95 21 128/68 96 Nasal Cannula 3.0 03/25/17 04:00 86 03/25/17 03:45 95 20 108/84 96 Nasal Cannula 3.0 03/25/17 03:30 98 28 110/51 95 Nasal Cannula 3.0 03/25/17 03:15 85 19 107/54 98 Nasal Cannula 3.0 03/25/17 03:00 96 19 112/84 98 Nasal Cannula 3.0 03/25/17 02:45 94 19 104/54 98 Nasal Cannula 3.0 03/25/17 02:30 96 19 104/85 98 Nasal Cannula 3.0 03/25/17 02:15 97 19 129/85 98 Nasal Cannula 3.0 03/25/17 02:00 97 19 106/54 98 Nasal Cannula 3.0 03/25/17 01:45 98 19 95/49 96 Nasal Cannula 3.0 03/25/17 01:30 97 25 209/71 96 Nasal Cannula 3.0 03/25/17 01:15 97 23 173/34 96 Nasal Cannula 3.0 03/25/17 01:00 98 24 79/56 96 Nasal Cannula 3.0 03/25/17 00:45 98 22 119/60 96 Nasal Cannula 3.0 03/25/17 00:30 100 30 107/66 98 Nasal Cannula 3.0 03/25/17 00:29 105/57 03/25/17 00:15 100 30 105/57 98 Nasal Cannula 3.0 03/25/17 00:00 97 24 105/57 98 Nasal Cannula 3.0 03/25/17 00:00 95 Intake and Output 03/25/17 03/26/17 19:00 07:00 Intake Total 1637.50 ml Output Total 895 ml 250 ml Balance 742.50 ml -250 ml Intake Free Water 30 ml IV Total 1557.50 ml Other 50 ml Output Urine Total 895 ml 250 ml # Bowel Movements 2 1 2D Echo: LVEF 55%, Grade I LVDD Laboratory Tests Test 03/25/17 04:30 03/25/17 08:20 03/25/17 08:50 White Blood Count 52.1 K/UL (4.8-10.8) *H Red Blood Count 3.54 M/UL (4.70-6.10) L Hemoglobin 10.9 G/DL (14.2-18.0) L Hematocrit 31.8 % (42.0-52.0) L Mean Corpuscular Volume 90 FL (80-99) Mean Corpuscular Hemoglobin 30.7 PG (27.0-31.0) Mean Corpuscular Hemoglobin Concent 34.2 G/DL (32.0-36.0) Red Cell Distribution Width 16.0 % (11.6-14.8) H Platelet Count 84 K/UL (150-450) L Mean Platelet Volume 13.5 FL (6.5-10.1) H Neutrophils (%) (Auto) % (45.0-75.0) Lymphocytes (%) (Auto) % (20.0-45.0) Monocytes (%) (Auto) % (1.0-10.0) Eosinophils (%) (Auto) % (0.0-3.0) Basophils (%) (Auto) % (0.0-2.0) Differential Total Cells Counted 100 Neutrophils % (Manual) 70 % (45-75) Lymphocytes % (Manual) 2 % (20-45) L Monocytes % (Manual) 4 % (1-10) Eosinophils % (Manual) 0 % (0-3) Basophils % (Manual) 0 % (0-2) Metamyelocytes % 2 % (0-0) H Myelocytes % 2 % (0-0) H Band Neutrophils 20 % (0-8) H Platelet Estimate Decreased L Platelet Morphology Normal Anisocytosis 1+ Sodium Level 137 mEQ/L (135-145) Potassium Level 3.9 mEQ/L (3.4-4.9) Chloride Level 101 mEQ/L (98-107) Carbon Dioxide Level 21 mEQ/L (20-30) Anion Gap 15 (5-15) Blood Urea Nitrogen 63 mg/dL (7-23) H Creatinine 2.1 mg/dL (0.7-1.2) H Estimat Glomerular Filtration Rate mL/min (>60) Glucose Level 140 mg/dL (74-106) H Hemoglobin A1c 6.6 % (< 6.0) H Lactic Acid Level 2.10 mmol/L (0.66-2.22) 2.30 mmol/L (0.66-2.22) H Uric Acid 6.1 mg/dL (3.0-7.5) Calcium Level 7.6 mg/dL (8.6-10.2) L Phosphorus Level 3.3 mg/dL (2.5-4.8) Magnesium Level 2.3 mg/dL (1.7-2.5) Total Bilirubin 1.7 mg/dL (0.0-1.2) H Direct Bilirubin 0.9 mg/dL (0.1-0.3) H Gamma Glutamyl Transpeptidase 44 U/L (8-61) Aspartate Amino Transf (AST/SGOT) 291 U/L (5-40) H Alanine Aminotransferase (ALT/SGPT) 456 U/L (3-41) H Alkaline Phosphatase 97 U/L (40-129) Total Creatine Kinase 651 U/L (38-174) H Troponin I 6.33 ng/mL (<=0.30) *H C-Reactive Protein, Quantitative 35.7 mg/dL (< 0.5) H Pro-B-Type Natriuretic Peptide 45584 pg/mL (0-450) H Total Protein 5.2 g/dL (6.6-8.7) L Albumin 2.5 g/dL (3.5-5.2) L Globulin 2.7 g/dL Albumin/Globulin Ratio 0.9 (1.0-2.7) L Triglycerides Level 237 mg/dL (< 150) H Cholesterol Level 80 mg/dL (< 200) LDL Cholesterol 29 mg/dL (60-99) L HDL Cholesterol < 4 mg/dL (> 60) Cholesterol/HDL Ratio 20.0 (3.3-4.4) H Arterial Blood pH 7.410 (7.350-7.450) Arterial Blood Partial Pressure CO2 30.8 mmHg (35.0-45.0) L Arterial Blood Partial Pressure O2 64.7 mmHg (75.0-100.0) L Arterial Blood HCO3 19.4 mmol/L (22.0-26.0) L Arterial Blood Oxygen Saturation 91.8 % (92.0-98.0) L Arterial Blood Base Excess -4.2 Myorn Test Positive Microbiology Date/Time Source Procedure Growth Status 03/23/17 12:00 Urine,Clean Catch Urine Culture - Preliminary Resulted Objective HEENT: normocephalic, atraumatic, PERRL, EOMI Neck: No JVD, no carotid bruit, carotid upstroke 2+ B/L Respiratory: Clear B/L Cardiovascular: regular rate, rhythm, normal S1S2, no murmurs, gallops or rubs. Gastrointestinal: normal inspection, normal bowel sounds, non tender, soft, no guarding, no hernia Musculoskeletal: normal inspection, no edema, clubbing or cyanosis, negative Christopher's Sign FRANCISCO SPAIN Mar 25, 2017 23:57
[2017-03-26] VITALS (20 sets, daily range): BP systolic 93–131; BP diastolic 42–99
[2017-03-26] MEDS: Clindamycin 600mg 50 ML IV SCH ×3 (01:32→17:21)
[2017-03-26 05:16] LABS: MEAN CORPUSCULAR HEMOGLOBIN 29.5 PG (27.0-31.0); MEAN CORPUSCULAR HGB CONC 33.2 G/DL (32.0-36.0); MEAN CORPUSCULAR VOLUME 89 FL (80-99); MEAN PLATELET VOLUME 11.5 FL (6.5-10.1); PLATELET COUNT 74 K/UL (150-450); RED BLOOD COUNT 3.53 M/UL (4.70-6.10); RED CELL DISTRIBUTION WIDTH 16.2 % (11.6-14.8)
[2017-03-26 05:28] LABS: WHITE BLOOD COUNT 38.5 K/UL (4.8-10.8)
[2017-03-26 05:39] LABS: ALANINE AMINOTRANSFERASE 279 U/L (3-41); ALBUMIN/GLOBULIN RATIO 0.7 (1.0-2.7); ANION GAP 15 (5-15); ASPARTATE AMINO TRANSFERASE 123 U/L (5-40); CALCIUM 7.8 mg/dL (8.6-10.2); CARBON DIOXIDE 20 mEQ/L (20-30); CHLORIDE 106 mEQ/L (98-107); HEMOLYSIS 1; MAGNESIUM 2.3 mg/dL (1.7-2.5); PHOSPHORUS 2.7 mg/dL (2.5-4.8); SODIUM 141 mEQ/L (135-145); TOTAL PROTEIN 4.8 g/dL (6.6-8.7)
[2017-03-26] MEDS: Meropenem 1 GM in NS 110 ML IVPB SCH ×3 (05:53→21:19)
[2017-03-26 07:18] LABS: BILIRUBIN,DIRECT 1.1 mg/dL (0.1-0.3)
[2017-03-26 07:57] LABS: BAND NEUTROPHILS % (MANUAL) 28 % (0-8); LYMPHOCYTES % (MANUAL) 3 % (20-45); NEUTROPHILS % (MANUAL) 67 % (45-75); TOTAL CELLS COUNTED 100
[2017-03-26 07:58] LABS: BASOPHILS % (MANUAL) 0 % (0-2); EOSINOPHILS % (MANUAL) 0 % (0-3); PLATELET ESTIMATE DECREASED
[2017-03-26 07:59] LABS: ANISOCYTOSIS 1+; PLATELET MORPHOLOGY NORMAL
[2017-03-26 09:14] LABS: ABG ALLEN TEST POSITIVE; ABG BASE EXCESS -5.2; ABG PCO2 30.5 mmHg (35.0-45.0)
[2017-03-26] MEDS: Dyna-Hex 2% Top Sol 8oz TOPIC SCH (09:23)
[2017-03-26] MEDS: Midodrine 10mg tab GT SCH ×3 (09:23→17:21)
--- NOTE | 2017-03-26 10:11 | Pulmonolgy Critical Care Note ---
Critical Care - Asmt/Plan Problems: (1) Septic shock (2) ATN (acute tubular necrosis) (3) Prostate cancer (4) Suprapubic catheter (5) Cachexia (6) Dementia (7) COPD (chronic obstructive pulmonary disease) Respiratory: monitor respiratory rate, adjust FIO2, ABG Cardiac: continue to monitor HR/BP Renal: F/U I&O, keep IV fluid, check electrolytes Infectious Disease: check cultures, continue antibiotics, other - wbc decreasing Gastrointestinal: continue feedings/current rate Endocrine: monitor blood sugar Hematologic: monitor H/H, transfuse if hgb<8.5 Neurologic: PRN Ativan, PRN Morphine Prophylaxis: Protonix, Heparin Disposition: transfer to Discussed with: nurses, 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, 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0 03/26/17 00:00 83 17 94/50 98 Nasal Cannula 3.0 03/26/17 00:00 81 03/25/17 23:00 87 17 97/38 98 Nasal Cannula 3.0 03/25/17 22:00 87 18 89/43 97 Nasal Cannula 3.0 03/25/17 21:45 87 23 102/49 96 Nasal Cannula 3.0 03/25/17 21:43 Nasal Cannula 3.0 03/25/17 21:43 96 Nasal Cannula 3.0 03/25/17 21:30 88 21 85/40 96 Nasal Cannula 3.0 03/25/17 21:15 90 23 99/47 97 Nasal Cannula 3.0 03/25/17 21:00 91 25 99/47 98 Nasal Cannula 3.0 03/25/17 20:30 90 26 109/52 98 Nasal Cannula 3.0 03/25/17 20:00 98.0 86 20 95/46 100 Nasal Cannula 3.0 03/25/17 19:30 87 23 102/65 99 Nasal Cannula 3.0 03/25/17 19:00 102/85 03/25/17 19:00 88 27 95/74 99 Nasal Cannula 3.0 03/25/17 18:30 81 24 98/49 96 Nasal Cannula 3.0 03/25/17 18:00 81 27 99/50 96 Nasal Cannula 3.0 03/25/17 18:00 85/67 03/25/17 17:30 82 27 101/47 98 Nasal Cannula 3.0 03/25/17 17:00 94 27 95/63 97 Nasal Cannula 3.0 03/25/17 16:30 95 24 110/54 100 Nasal Cannula 3.0 03/25/17 16:00 92 03/25/17 16:00 98.1 93 22 98/47 99 Nasal Cannula 3.0 03/25/17 16:00 98/47 03/25/17 15:30 90 24 116/37 98 Nasal Cannula 3.0 03/25/17 15:00 90 24 102/48 98 Nasal Cannula 3.0 03/25/17 15:00 102/48 03/25/17 14:30 91 26 111/77 98 Nasal Cannula 3.0 03/25/17 14:00 87 26 142/127 97 Nasal Cannula 3.0 03/25/17 13:53 111/66 03/25/17 13:30 91 25 111/66 94 Nasal Cannula 3.0 03/25/17 13:00 96/44 03/25/17 13:00 89 25 96/44 95 Nasal Cannula 3.0 03/25/17 12:30 90 30 108/54 97 Nasal Cannula 3.0 03/25/17 12:00 97.7 94 22 85/63 99 Nasal Cannula 3.0 03/25/17 12:00 92 03/25/17 11:30 91 30 108/64 98 Nasal Cannula 3.0 03/25/17 11:00 95 21 115/87 97 Nasal Cannula 3.0 03/25/17 11:00 90/60 03/25/17 10:30 103 22 110/64 95 Nasal Cannula 3.0 Status: sedated Condition: critical HEENT: atraumatic Lungs: clear Heart: HR/BP stable, regular Abdomen: active bowel sounds, feeding tube Extremities: no C/C/E, edema Decubiti: location, stage Micro: Microbiology Date/Time Source Procedure Growth Status 03/23/17 12:00 Urine,Clean Catch Urine Culture - Preliminary Resulted Accucheck: 166 Critical Care - Subjective ROS Limited/Unobtainable: No ICU Day: 4 Condition: critical EKG Rhythm: Sinus Rhythm FI02: 100 Fluids: NS 125 cc/hour I&O: Intake and Output 03/26/17 03/27/17 19:00 07:00 Output Total 150 ml Balance -150 ml Output Urine Total 150 ml CXR: unchaged, Labs: Laboratory Tests Test 03/26/17 04:00 03/26/17 05:00 Arterial Blood pH 7.400 (7.350-7.450) Arterial Blood Partial Pressure CO2 30.5 mmHg (35.0-45.0) L Arterial Blood Partial Pressure O2 73.0 mmHg (75.0-100.0) L Arterial Blood HCO3 18.6 mmol/L (22.0-26.0) L Arterial Blood Oxygen Saturation 93.7 % (92.0-98.0) Arterial Blood Base Excess -5.2 Myron Test Positive White Blood Count 38.5 K/UL (4.8-10.8) *H Red Blood Count 3.53 M/UL (4.70-6.10) L Hemoglobin 10.4 G/DL (14.2-18.0) L Hematocrit 31.3 % (42.0-52.0) L Mean Corpuscular Volume 89 FL (80-99) Mean Corpuscular Hemoglobin 29.5 PG (27.0-31.0) Mean Corpuscular Hemoglobin Concent 33.2 G/DL (32.0-36.0) Red Cell Distribution Width 16.2 % (11.6-14.8) H Platelet Count 74 K/UL (150-450) L Mean Platelet Volume 11.5 FL (6.5-10.1) H Neutrophils (%) (Auto) % (45.0-75.0) Lymphocytes (%) (Auto) % (20.0-45.0) Monocytes (%) (Auto) % (1.0-10.0) Eosinophils (%) (Auto) % (0.0-3.0) Basophils (%) (Auto) % (0.0-2.0) Differential Total Cells Counted 100 Neutrophils % (Manual) 67 % (45-75) Lymphocytes % (Manual) 3 % (20-45) L Monocytes % (Manual) 2 % (1-10) Eosinophils % (Manual) 0 % (0-3) Basophils % (Manual) 0 % (0-2) Band Neutrophils 28 % (0-8) H Platelet Estimate Decreased L Platelet Morphology Normal Anisocytosis 1+ Sodium Level 141 mEQ/L (135-145) Potassium Level 3.0 mEQ/L (3.4-4.9) L Chloride Level 106 mEQ/L (98-107) Carbon Dioxide Level 20 mEQ/L (20-30) Anion Gap 15 (5-15) Blood Urea Nitrogen 62 mg/dL (7-23) H Creatinine 2.0 mg/dL (0.7-1.2) H Estimat Glomerular Filtration Rate mL/min (>60) Glucose Level 63 mg/dL (74-106) L Calcium Level 7.8 mg/dL (8.6-10.2) L Phosphorus Level 2.7 mg/dL (2.5-4.8) Magnesium Level 2.3 mg/dL (1.7-2.5) Total Bilirubin 1.8 mg/dL (0.0-1.2) H Direct Bilirubin 1.1 mg/dL (0.1-0.3) H Aspartate Amino Transf (AST/SGOT) 123 U/L (5-40) H Alanine Aminotransferase (ALT/SGPT) 279 U/L (3-41) H Alkaline Phosphatase 222 U/L (40-129) H Total Protein 4.8 g/dL (6.6-8.7) L Albumin 2.1 g/dL (3.5-5.2) L Globulin 2.7 g/dL Albumin/Globulin Ratio 0.7 (1.0-2.7) L VERITO QUEZADA Mar 26, 2017 10:11
--- NOTE | 2017-03-26 10:39 | Diagnostic Imaging Report ---
Indication: Dyspnea Comparison: 03/25/17 A single view chest radiograph was obtained. Findings: Hazy right basilar opacity demonstrated. Basilar atelectasis noted bilaterally. Right jugular line is stable. Cardiomegaly is stable. Mild interstitial edema may be present. Please correlate clinically. Impression: Possible developing mild CHF/interstitial edema. Please correlate clinically. Suspected right pleural effusion Basilar atelectasis
--- NOTE | 2017-03-26 11:57 | Diagnostic Imaging Report ---
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 The right upper extremity was prepped with alcohol. All elements of maximal sterile barrier technique were followed including usage of a cap, mask, sterile gown, sterile gloves, hand hygiene and a large sterile sheet. Sonographic evaluation of the upper extremity was performed demonstrating a patent and compressible basilic vein. Access was obtained under real-time ultrasound guidance and digital image was saved and archived. An .018 wire was introduced. Needle exchanged for a 5 Jamaican peel-away sheath. Measurements were obtained. A 5 Jamaican dual-lumen Power PICC line catheter was cut to 38 cm and introduced over the wire. Peel-away sheath and wire were removed.Catheter was secured to the skin using 2-0 Prolene suture. Both ports aspirate and flush easily. Post procedure chest x-ray demonstrates good position of the PICC line catheter within the SVC. Impression: Successful placement of an upper extremity PICC line catheter
--- NOTE | 2017-03-26 14:51 | General Progress Note ---
Assessment/Plan Status: unchanged Assessment/Plan - Acute Renal Failure- Cr lower - Dislodged gastrostomy tube - UTI (urinary tract infection), with severe leukocytosis, high Lactic acid - h/o Seizure - Dementia - Sepsis, WBCs lowering - COPD (chronic obstructive pulmonary disease) - Cachexia - High Troponin Plan: Keep BP above 100 Avoid Nephrotoxics Monitor renal parameters Per consultants Subjective ROS Limited/Unobtainable: Yes Allergies: Coded Allergies: No Known Allergies (Verified , 09/26/12) Objective Last 24 Hour Vital Signs Date Time Temp Pulse Resp B/P (MAP) Pulse Ox O2 Delivery O2 Flow Rate FiO2 03/26/17 14:00 94 17 105/70 100 Nasal Cannula 3.0 03/26/17 13:00 89 17 97/77 100 Nasal Cannula 3.0 03/26/17 12:00 98.3 77 25 127/55 100 Nasal Cannula 3.0 03/26/17 12:00 85 03/26/17 11:00 86 17 131/99 100 Nasal Cannula 3.0 03/26/17 10:00 93 16 112/54 100 Nasal Cannula 3.0 03/26/17 09:00 87 15 131/71 98 Nasal Cannula 3.0 03/26/17 08:00 97.8 85 12 119/59 99 Nasal Cannula 3.0 03/26/17 08:00 84 03/26/17 07:00 74 14 107/70 98 Nasal Cannula 3.0 03/26/17 06:00 80 14 94/46 98 Nasal Cannula 3.0 03/26/17 05:00 82 14 93/52 98 Nasal Cannula 3.0 03/26/17 04:00 98.0 92 24 112/68 98 Nasal Cannula 3.0 03/26/17 04:00 94 03/26/17 03:00 82 14 100/42 98 Nasal Cannula 3.0 03/26/17 02:00 76 17 95/49 98 Nasal Cannula 3.0 03/26/17 01:00 98.1 86 18 101/50 98 Nasal Cannula 3.0 03/26/17 00:00 83 17 94/50 98 Nasal Cannula 3.0 03/26/17 00:00 81 03/25/17 23:00 87 17 97/38 98 Nasal Cannula 3.0 03/25/17 22:00 87 18 89/43 97 Nasal Cannula 3.0 03/25/17 21:45 87 23 102/49 96 Nasal Cannula 3.0 03/25/17 21:43 Nasal Cannula 3.0 03/25/17 21:43 96 Nasal Cannula 3.0 03/25/17 21:30 88 21 85/40 96 Nasal Cannula 3.0 03/25/17 21:15 90 23 99/47 97 Nasal Cannula 3.0 03/25/17 21:00 91 25 99/47 98 Nasal Cannula 3.0 03/25/17 20:30 90 26 109/52 98 Nasal Cannula 3.0 03/25/17 20:00 98.0 86 20 95/46 100 Nasal Cannula 3.0 03/25/17 19:30 87 23 102/65 99 Nasal Cannula 3.0 03/25/17 19:00 102/85 03/25/17 19:00 88 27 95/74 99 Nasal Cannula 3.0 03/25/17 18:30 81 24 98/49 96 Nasal Cannula 3.0 03/25/17 18:00 81 27 99/50 96 Nasal Cannula 3.0 03/25/17 18:00 85/67 03/25/17 17:30 82 27 101/47 98 Nasal Cannula 3.0 03/25/17 17:00 94 27 95/63 97 Nasal Cannula 3.0 03/25/17 16:30 95 24 110/54 100 Nasal Cannula 3.0 03/25/17 16:00 92 03/25/17 16:00 98.1 93 22 98/47 99 Nasal Cannula 3.0 03/25/17 16:00 98/47 03/25/17 15:30 90 24 116/37 98 Nasal Cannula 3.0 03/25/17 15:00 90 24 102/48 98 Nasal Cannula 3.0 03/25/17 15:00 102/48 Intake and Output 03/26/17 03/27/17 19:00 07:00 Intake Total 60 ml Output Total 540 ml Balance -480 ml Other 60 ml Output Urine Total 540 ml Laboratory Tests 03/26/17 04:00: Arterial Blood pH 7.400, Arterial Blood Partial Pressure CO2 30.5L, Arterial Blood Partial Pressure O2 73.0L, Arterial Blood HCO3 18.6L, Arterial Blood Oxygen Saturation 93.7, Arterial Blood Base Excess -5.2, Myron Test Positive 03/26/17 05:00: White Blood Count 38.5*H, Red Blood Count 3.53L, Hemoglobin 10.4L, Hematocrit 31.3L, Mean Corpuscular Volume 89, Mean Corpuscular Hemoglobin 29.5, Mean Corpuscular Hemoglobin Concent 33.2, Red Cell Distribution Width 16.2H, Platelet Count 74L, Mean Platelet Volume 11.5H, Neutrophils (%) (Auto) , Lymphocytes (%) (Auto) , Monocytes (%) (Auto) , Eosinophils (%) (Auto) , Basophils (%) (Auto) , Differential Total Cells Counted 100, Neutrophils % ( Manual) 67, Lymphocytes % (Manual) 3L, Monocytes % (Manual) 2, Eosinophils % ( Manual) 0, Basophils % (Manual) 0, Band Neutrophils 28H, Platelet Estimate DecreasedL, Platelet Morphology Normal, Anisocytosis 1+, Sodium Level 141, Potassium Level 3.0L, Chloride Level 106, Carbon Dioxide Level 20, Anion Gap 15 , Blood Urea Nitrogen 62H, Creatinine 2.0H, Estimat Glomerular Filtration Rate , Glucose Level 63L, Calcium Level 7.8L, Phosphorus Level 2.7, Magnesium Level 2.3, Total Bilirubin 1.8H, Direct Bilirubin 1.1H, Aspartate Amino Transf (AST/ SGOT) 123H, Alanine Aminotransferase (ALT/SGPT) 279H, Alkaline Phosphatase 222H , Total Protein 4.8L, Albumin 2.1L, Globulin 2.7, Albumin/Globulin Ratio 0.7L Height (Feet): 5 Height (Inches): 5.00 Weight (Pounds): 150 General Appearance: mild distress Cardiovascular: tachycardia Respiratory/Chest: decreased breath sounds Abdomen: distended FAITH SEARS Mar 26, 2017 14:51
--- NOTE | 2017-03-26 17:14 | General Progress Note ---
Assessment/Plan Assessment/Plan Assessment - abnormal LFT - likely shocked liver - dysphagia, h/o PEG - Sepsis, shock - s/p suprapubic cath - hematuria - OBS - Poor prognosis Recommendations - TF when OK'd by pulmonary - supportive care - check abd U/S - negative - follow LFT - abx per ID Subjective Allergies: Coded Allergies: No Known Allergies (Verified , 09/26/12) Subjective Seen earlier today obtunded, in ICU NPO d/w RN Objective Last 24 Hour Vital Signs Date Time Temp Pulse Resp B/P (MAP) Pulse Ox O2 Delivery O2 Flow Rate FiO2 03/26/17 17:00 93 25 129/63 100 Nasal Cannula 3.0 03/26/17 16:00 98.7 94 20 128/54 100 Nasal Cannula 3.0 03/26/17 16:00 91 03/26/17 15:00 92 18 131/71 100 Nasal Cannula 3.0 03/26/17 14:00 94 17 105/70 100 Nasal Cannula 3.0 03/26/17 13:00 89 17 97/77 100 Nasal Cannula 3.0 03/26/17 12:00 98.3 77 25 127/55 100 Nasal Cannula 3.0 03/26/17 12:00 85 03/26/17 11:00 86 17 131/99 100 Nasal Cannula 3.0 03/26/17 10:00 93 16 112/54 100 Nasal Cannula 3.0 03/26/17 09:00 87 15 131/71 98 Nasal Cannula 3.0 03/26/17 08:00 97.8 85 12 119/59 99 Nasal Cannula 3.0 03/26/17 08:00 84 03/26/17 07:00 74 14 107/70 98 Nasal Cannula 3.0 03/26/17 06:00 80 14 94/46 98 Nasal Cannula 3.0 03/26/17 05:00 82 14 93/52 98 Nasal Cannula 3.0 03/26/17 04:00 98.0 92 24 112/68 98 Nasal Cannula 3.0 03/26/17 04:00 94 03/26/17 03:00 82 14 100/42 98 Nasal Cannula 3.0 03/26/17 02:00 76 17 95/49 98 Nasal Cannula 3.0 03/26/17 01:00 98.1 86 18 101/50 98 Nasal Cannula 3.0 03/26/17 00:00 83 17 94/50 98 Nasal Cannula 3.0 03/26/17 00:00 81 03/25/17 23:00 87 17 97/38 98 Nasal Cannula 3.0 03/25/17 22:00 87 18 89/43 97 Nasal Cannula 3.0 03/25/17 21:45 87 23 102/49 96 Nasal Cannula 3.0 03/25/17 21:43 Nasal Cannula 3.0 03/25/17 21:43 96 Nasal Cannula 3.0 03/25/17 21:30 88 21 85/40 96 Nasal Cannula 3.0 03/25/17 21:15 90 23 99/47 97 Nasal Cannula 3.0 03/25/17 21:00 91 25 99/47 98 Nasal Cannula 3.0 03/25/17 20:30 90 26 109/52 98 Nasal Cannula 3.0 03/25/17 20:00 98.0 86 20 95/46 100 Nasal Cannula 3.0 03/25/17 19:30 87 23 102/65 99 Nasal Cannula 3.0 03/25/17 19:00 102/85 03/25/17 19:00 88 27 95/74 99 Nasal Cannula 3.0 03/25/17 18:30 81 24 98/49 96 Nasal Cannula 3.0 03/25/17 18:00 81 27 99/50 96 Nasal Cannula 3.0 03/25/17 18:00 85/67 03/25/17 17:30 82 27 101/47 98 Nasal Cannula 3.0 Intake and Output 03/26/17 03/27/17 19:00 07:00 Intake Total 1257.5 ml Output Total 760 ml Balance 497.5 ml IV Total 1197.5 ml Other 60 ml Output Urine Total 760 ml # Bowel Movements 2 Laboratory Tests 03/26/17 04:00: Arterial Blood pH 7.400, Arterial Blood Partial Pressure CO2 30.5L, Arterial Blood Partial Pressure O2 73.0L, Arterial Blood HCO3 18.6L, Arterial Blood Oxygen Saturation 93.7, Arterial Blood Base Excess -5.2, Myron Test Positive 03/26/17 05:00: White Blood Count 38.5*H, Red Blood Count 3.53L, Hemoglobin 10.4L, Hematocrit 31.3L, Mean Corpuscular Volume 89, Mean Corpuscular Hemoglobin 29.5, Mean Corpuscular Hemoglobin Concent 33.2, Red Cell Distribution Width 16.2H, Platelet Count 74L, Mean Platelet Volume 11.5H, Neutrophils (%) (Auto) , Lymphocytes (%) (Auto) , Monocytes (%) (Auto) , Eosinophils (%) (Auto) , Basophils (%) (Auto) , Differential Total Cells Counted 100, Neutrophils % ( Manual) 67, Lymphocytes % (Manual) 3L, Monocytes % (Manual) 2, Eosinophils % ( Manual) 0, Basophils % (Manual) 0, Band Neutrophils 28H, Platelet Estimate DecreasedL, Platelet Morphology Normal, Anisocytosis 1+, Sodium Level 141, Potassium Level 3.0L, Chloride Level 106, Carbon Dioxide Level 20, Anion Gap 15 , Blood Urea Nitrogen 62H, Creatinine 2.0H, Estimat Glomerular Filtration Rate , Glucose Level 63L, Calcium Level 7.8L, Phosphorus Level 2.7, Magnesium Level 2.3, Total Bilirubin 1.8H, Direct Bilirubin 1.1H, Aspartate Amino Transf (AST/ SGOT) 123H, Alanine Aminotransferase (ALT/SGPT) 279H, Alkaline Phosphatase 222H , Total Protein 4.8L, Albumin 2.1L, Globulin 2.7, Albumin/Globulin Ratio 0.7L Height (Feet): 5 Height (Inches): 5.00 Weight (Pounds): 150 Objective Elderly confused WM NCAT supple CTA RRR abd soft , flat, (+) GT, (+) SP tube no edema OBS CURTIS GARCIA Mar 26, 2017 17:14
[2017-03-26] MEDS ORDERED: Clindamycin 600mg 50 ML IV SCH (18:00)
[2017-03-26] MEDS ORDERED: LORazepam Inj 2mg/ml 1ml IV PRN (18:15)
[2017-03-26] MEDS ORDERED: Miralax 17gm pkt ORAL PRN (18:30)
[2017-03-26] MEDS ORDERED: Morphine Sulfate 2mg/ml Inj IVP PRN (18:30)
--- NOTE | 2017-03-26 22:28 | General Progress Note ---
Assessment/Plan Status: unchanged Assessment/Plan IMPRESSION: 1. Leukocytosis with left shift. --> WBC count critical value, on antibiotic IV. Continues to improve. 2. Leukemoid reaction. 3. Polycythemia, reactive, secondary to sepsis. 4. Erythrocytosis, reactive. 5. Bandemia. 6. Acute renal insufficiency. 7. Transaminitis. 8. Bilirubinemia. 9. Encephalopathy. 10. Sepsis. 11. Septic shock. 12. Hypertension. 13. Chronic obstructive pulmonary disease exacerbation. 14. Respiratory failure. 15. Dysphagia. 16. Gastrostomy tube placement. 17. History of cerebral infarct, history of cerebrovascular accident. 18. Dementia. 19. Alzheimer's. 20. Seizure. 21. Weakness. 22. Failure to thrive. RECOMMENDATIONS: 1. Watch count. 2. Watch coagulopathy. 3. Antibiotic IV. 4. Heparin subcutaneous. 5. PRBC transfusion p.r.n. basis. 6. Respiratory treatment. 7. Infectious Disease followup. 8. Pulmonary followup. 9. Cardiology followup. 10. Skin care. 11. Nutrition. 12. Close followup. 13. Continue current treatment. Subjective Date patient seen: Mar 26, 2017 Time patient seen: 06:00 Hematologic/Lymphatic: Reports: anemia, other Allergies: Coded Allergies: No Known Allergies (Verified , 09/26/12) Subjective Ongoing tube feedings. Obtunded. Patient in ICU. Afebrile. Leukocytosis improving. Nonresponsive. Objective Last 24 Hour Vital Signs Date Time Temp Pulse Resp B/P (MAP) Pulse Ox O2 Delivery O2 Flow Rate FiO2 03/26/17 20:00 97.3 86 16 99/63 96 Nasal Cannula 3.0 03/26/17 19:07 80 03/26/17 17:50 98.0 83 22 110/56 97 Nasal Cannula 3.0 03/26/17 17:00 93 25 129/63 100 Nasal Cannula 3.0 03/26/17 16:00 98.7 94 20 128/54 100 Nasal Cannula 3.0 03/26/17 16:00 91 03/26/17 15:00 92 18 131/71 100 Nasal Cannula 3.0 03/26/17 14:00 94 17 105/70 100 Nasal Cannula 3.0 03/26/17 13:00 89 17 97/77 100 Nasal Cannula 3.0 03/26/17 12:00 98.3 77 25 127/55 100 Nasal Cannula 3.0 03/26/17 12:00 85 03/26/17 11:00 86 17 131/99 100 Nasal Cannula 3.0 03/26/17 10:00 93 16 112/54 100 Nasal Cannula 3.0 03/26/17 09:00 87 15 131/71 98 Nasal Cannula 3.0 03/26/17 08:00 97.8 85 12 119/59 99 Nasal Cannula 3.0 03/26/17 08:00 84 03/26/17 07:00 74 14 107/70 98 Nasal Cannula 3.0 03/26/17 06:00 80 14 94/46 98 Nasal Cannula 3.0 03/26/17 05:00 82 14 93/52 98 Nasal Cannula 3.0 03/26/17 04:00 98.0 92 24 112/68 98 Nasal Cannula 3.0 03/26/17 04:00 94 03/26/17 03:00 82 14 100/42 98 Nasal Cannula 3.0 03/26/17 02:00 76 17 95/49 98 Nasal Cannula 3.0 03/26/17 01:00 98.1 86 18 101/50 98 Nasal Cannula 3.0 03/26/17 00:00 83 17 94/50 98 Nasal Cannula 3.0 03/26/17 00:00 81 03/25/17 23:00 87 17 97/38 98 Nasal Cannula 3.0 Intake and Output 03/26/17 03/27/17 19:00 07:00 Intake Total 1435.0 ml 125 ml Output Total 790 ml Balance 645.0 ml 125 ml IV Total 1335.0 ml 125 ml Tube Feeding 40 ml Other 60 ml Output Urine Total 790 ml # Bowel Movements 2 1 Laboratory Tests 03/26/17 04:00: Arterial Blood pH 7.400, Arterial Blood Partial Pressure CO2 30.5L, Arterial Blood Partial Pressure O2 73.0L, Arterial Blood HCO3 18.6L, Arterial Blood Oxygen Saturation 93.7, Arterial Blood Base Excess -5.2, Myron Test Positive 03/26/17 05:00: White Blood Count 38.5*H, Red Blood Count 3.53L, Hemoglobin 10.4L, Hematocrit 31.3L, Mean Corpuscular Volume 89, Mean Corpuscular Hemoglobin 29.5, Mean Corpuscular Hemoglobin Concent 33.2, Red Cell Distribution Width 16.2H, Platelet Count 74L, Mean Platelet Volume 11.5H, Neutrophils (%) (Auto) , Lymphocytes (%) (Auto) , Monocytes (%) (Auto) , Eosinophils (%) (Auto) , Basophils (%) (Auto) , Differential Total Cells Counted 100, Neutrophils % ( Manual) 67, Lymphocytes % (Manual) 3L, Monocytes % (Manual) 2, Eosinophils % ( Manual) 0, Basophils % (Manual) 0, Band Neutrophils 28H, Platelet Estimate DecreasedL, Platelet Morphology Normal, Anisocytosis 1+, Sodium Level 141, Potassium Level 3.0L, Chloride Level 106, Carbon Dioxide Level 20, Anion Gap 15 , Blood Urea Nitrogen 62H, Creatinine 2.0H, Estimat Glomerular Filtration Rate , Glucose Level 63L, Calcium Level 7.8L, Phosphorus Level 2.7, Magnesium Level 2.3, Total Bilirubin 1.8H, Direct Bilirubin 1.1H, Aspartate Amino Transf (AST/ SGOT) 123H, Alanine Aminotransferase (ALT/SGPT) 279H, Alkaline Phosphatase 222H , Total Protein 4.8L, Albumin 2.1L, Globulin 2.7, Albumin/Globulin Ratio 0.7L Height (Feet): 5 Height (Inches): 5.00 Weight (Pounds): 150 General Appearance: other - obtunded LYRIC SCHWARTZ Mar 26, 2017 22:28
[2017-03-27] VITALS: BP 96/61
[2017-03-27] MEDS: Clindamycin 600mg 50 ML IV SCH ×3 (02:07→18:15)
[2017-03-27 04:00] VITALS: BP 98/62
[2017-03-27] MEDS: Meropenem 1 GM in NS 110 ML IVPB SCH ×3 (05:35→22:00)
[2017-03-27 07:27] LABS: MEAN CORPUSCULAR HEMOGLOBIN 30.6 PG (27.0-31.0); MEAN CORPUSCULAR HGB CONC 34.1 G/DL (32.0-36.0); MEAN CORPUSCULAR VOLUME 90 FL (80-99); MEAN PLATELET VOLUME 11.5 FL (6.5-10.1); PLATELET COUNT 71 K/UL (150-450); RED BLOOD COUNT 3.77 M/UL (4.70-6.10); RED CELL DISTRIBUTION WIDTH 16.3 % (11.6-14.8)
[2017-03-27 07:31] LABS: WHITE BLOOD COUNT 22.2 K/UL (4.8-10.8)
[2017-03-27 07:55] LABS: ALANINE AMINOTRANSFERASE 188 U/L (3-41); ALBUMIN/GLOBULIN RATIO 0.7 (1.0-2.7); ANION GAP 14 (5-15); ASPARTATE AMINO TRANSFERASE 65 U/L (5-40); CALCIUM 7.8 mg/dL (8.6-10.2); CARBON DIOXIDE 20 mEQ/L (20-30); CHLORIDE 107 mEQ/L (98-107); CREATININE 1.6 mg/dL (0.7-1.2); HEMOLYSIS 1; MAGNESIUM 2.1 mg/dL (1.7-2.5); PHOSPHORUS 2.2 mg/dL (2.5-4.8); POTASSIUM 2.8 mEQ/L (3.4-4.9); SODIUM 141 mEQ/L (135-145); TOTAL PROTEIN 4.9 g/dL (6.6-8.7)
--- NOTE | 2017-03-27 07:56 | Pulmonology Progress Note ---
Assessment/Plan Problems: (1) Septic shock (2) ATN (acute tubular necrosis) (3) Suprapubic catheter (4) Gross hematuria (5) Dementia (6) COPD (chronic obstructive pulmonary disease) (7) Cachexia Assessment/Plan improving respiratory treatment IV abx check electrolytes cxr periodically dvt prophylaxis Subjective ROS Limited/Unobtainable: Yes Constitutional: Reports: no symptoms HEENT: Repors: no symptoms Allergies: Coded Allergies: No Known Allergies (Verified , 09/26/12) Objective Last 24 Hour Vital Signs Date Time Temp Pulse Resp B/P (MAP) Pulse Ox O2 Delivery O2 Flow Rate FiO2 03/27/17 04:00 88 03/27/17 04:00 97.3 61 24 98/62 94 Nasal Cannula 3.0 03/27/17 00:00 81 03/27/17 00:00 97.4 88 16 96/61 96 Nasal Cannula 3.0 03/26/17 20:00 97.3 86 16 99/63 96 Nasal Cannula 3.0 03/26/17 19:07 80 03/26/17 19:05 Nasal Cannula 3.0 03/26/17 19:05 95 Nasal Cannula 3.0 03/26/17 17:50 98.0 83 22 110/56 97 Nasal Cannula 3.0 03/26/17 17:00 93 25 129/63 100 Nasal Cannula 3.0 03/26/17 16:00 98.7 94 20 128/54 100 Nasal Cannula 3.0 03/26/17 16:00 91 03/26/17 15:00 92 18 131/71 100 Nasal Cannula 3.0 03/26/17 14:00 94 17 105/70 100 Nasal Cannula 3.0 03/26/17 13:00 89 17 97/77 100 Nasal Cannula 3.0 03/26/17 12:00 98.3 77 25 127/55 100 Nasal Cannula 3.0 03/26/17 12:00 85 03/26/17 11:00 86 17 131/99 100 Nasal Cannula 3.0 03/26/17 10:00 93 16 112/54 100 Nasal Cannula 3.0 03/26/17 09:00 87 15 131/71 98 Nasal Cannula 3.0 03/26/17 08:00 97.8 85 12 119/59 99 Nasal Cannula 3.0 03/26/17 08:00 84 General Appearance: WD/WN HEENT: normocephalic, atraumatic Respiratory/Chest: chest wall non-tender, lungs clear, normal breath sounds Cardiovascular: normal peripheral pulses, normal rate Abdomen: normal bowel sounds, soft, non tender Genitourinary: normal external genitalia Extremities: no cyanosis Skin: no rash, no ulcers Neurologic/Psychiatric: 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 Laboratory Tests 03/27/17 04:00: White Blood Count 22.2*H, Red Blood Count 3.77L, Hemoglobin 11.5L, Hematocrit 33.8L, Mean Corpuscular Volume 90, Mean Corpuscular Hemoglobin 30.6, Mean Corpuscular Hemoglobin Concent 34.1, Red Cell Distribution Width 16.3H, Platelet Count 71L, Mean Platelet Volume 11.5H, Neutrophils (%) (Auto) , Lymphocytes (%) (Auto) , Monocytes (%) (Auto) , Eosinophils (%) (Auto) , Basophils (%) (Auto) , Neutrophils % (Manual) [Pending], Lymphocytes % (Manual) [Pending], Platelet Estimate [Pending], Platelet Morphology [Pending], Sodium Level [Pending], Potassium Level [Pending], Chloride Level [Pending], Carbon Dioxide Level [Pending], Blood Urea Nitrogen [Pending], Creatinine [Pending], Estimat Glomerular Filtration Rate [Pending], Glucose Level [Pending], Calcium Level [Pending], Phosphorus Level [Pending], Magnesium Level [Pending], Total Bilirubin [Pending], Aspartate Amino Transf (AST/SGOT) [Pending], Alanine Aminotransferase (ALT/SGPT) [Pending], Alkaline Phosphatase [Pending], Total Protein [Pending], Albumin [Pending], Globulin [Pending] Current Medications Medications (Trade) Dose Ordered Sig/Matt Route PRN Reason Start Time Stop Time Status Last Admin Dose Admin Acetaminophen (Tylenol) 650 mg Q4H PRN ORAL Mild Pain (Pain Scale 1-3) 03/26/17 18:00 04/22/17 17:59 Acetaminophen (Tylenol) 650 mg Q4H PRN ORAL T>100.5 03/26/17 18:15 04/22/17 10:14 Chlorhexidine Gluconate (Mari-Hex 2%) 1 applic QHS TOPIC 03/27/17 21:00 04/22/17 20:59 Clindamycin HCl/ Dextrose 50 ml @ 100 mls/hr Q8H IV 03/27/17 02:00 04/03/17 01:59 03/27/17 02:07 Clonidine HCl (Catapres) 0.1 mg Q4H PRN ORAL SBP > 160 mmHg 03/26/17 18:00 04/22/17 17:59 Lansoprazole (Prevacid) 30 mg DAILY ORAL 03/27/17 09:00 04/23/17 08:59 Lorazepam (Ativan 2mg/ml 1ml) 0.5 mg Q4H PRN IV For Anxiety 03/26/17 18:15 03/30/17 10:14 Meropenem 1 gm/ Sodium Chloride 110 ml @ 220 mls/hr Q8HR IVPB 03/26/17 22:00 03/30/17 13:59 03/27/17 05:35 Midodrine (Pro-Amatine) 10 mg THREE TIMES A DAY GT 03/27/17 09:00 04/26/17 08:59 Morphine Sulfate (Morphine Sulfate) 2 mg Q6H PRN IVP Moderate Pain (Pain Scale 4-6) 03/26/17 18:30 03/30/17 18:29 Ondansetron HCl (Zofran) 4 mg Q6H PRN IVP Nausea & Vomiting 03/26/17 18:30 04/22/17 18:29 Polyethylene Glycol (Miralax) 17 gm DAILYPRN PRN ORAL Constipation 03/26/17 18:30 04/25/17 18:29 Sodium Chloride 1,000 ml @ 125 mls/hr Q8H IV 03/26/17 18:00 04/22/17 17:59 03/27/17 02:07 VERITO QUEZADA Mar 27, 2017 07:56
[2017-03-27 08:00] VITALS: BP 136/56
[2017-03-27 08:07] LABS: BILIRUBIN,DIRECT 0.8 mg/dL (0.1-0.3)
[2017-03-27 08:11] LABS: ANISOCYTOSIS 1+; BAND NEUTROPHILS % (MANUAL) 6 % (0-8); BASOPHILS % (MANUAL) 0 % (0-2); EOSINOPHILS % (MANUAL) 4 % (0-3); HYPOCHROMASIA 1+; LYMPHOCYTES % (MANUAL) 4 % (20-45); NEUTROPHILS % (MANUAL) 77 % (45-75); PLATELET ESTIMATE DECREASED; PLATELET MORPHOLOGY NORMAL; TOTAL CELLS COUNTED 100
[2017-03-27 08:28] LABS: ABG ALLEN TEST POSITIVE; ABG BASE EXCESS -2.4; ABG PCO2 32.7 mmHg (35.0-45.0)
[2017-03-27] MEDS ORDERED: Dyna-Hex 2% Top Sol 8oz TOPIC SCH (09:00)
[2017-03-27] MEDS ORDERED: Tubing IV Secondary IV ONE ×2 (09:02→16:18)
[2017-03-27] MEDS ORDERED: NS 275ml ONE (09:02)
--- NOTE | 2017-03-27 09:13 | General Progress Note ---
Assessment/Plan Status: stable Status Narrative Cr lower Assessment/Plan - Acute Renal Failure- Cr lower - Dislodged gastrostomy tube - UTI (urinary tract infection), with severe leukocytosis, high Lactic acid - h/o Seizure - Dementia - Sepsis, WBCs lowering - COPD (chronic obstructive pulmonary disease) - Cachexia - High Troponin Plan: K supp IV Keep BP above 100 Avoid Nephrotoxics Monitor renal parameters Per consultants Subjective ROS Limited/Unobtainable: Yes Allergies: Coded Allergies: No Known Allergies (Verified , 09/26/12) Objective Last 24 Hour Vital Signs Date Time Temp Pulse Resp B/P (MAP) Pulse Ox O2 Delivery O2 Flow Rate FiO2 03/27/17 08:31 90 03/27/17 08:27 Nasal Cannula 3.0 32 03/27/17 08:27 95 Nasal Cannula 3.0 03/27/17 04:00 88 03/27/17 04:00 97.3 61 24 98/62 94 Nasal Cannula 3.0 03/27/17 00:00 81 03/27/17 00:00 97.4 88 16 96/61 96 Nasal Cannula 3.0 03/26/17 20:00 97.3 86 16 99/63 96 Nasal Cannula 3.0 03/26/17 19:07 80 03/26/17 19:05 Nasal Cannula 3.0 03/26/17 19:05 95 Nasal Cannula 3.0 03/26/17 17:50 98.0 83 22 110/56 97 Nasal Cannula 3.0 03/26/17 17:00 93 25 129/63 100 Nasal Cannula 3.0 03/26/17 16:00 98.7 94 20 128/54 100 Nasal Cannula 3.0 03/26/17 16:00 91 03/26/17 15:00 92 18 131/71 100 Nasal Cannula 3.0 03/26/17 14:00 94 17 105/70 100 Nasal Cannula 3.0 03/26/17 13:00 89 17 97/77 100 Nasal Cannula 3.0 03/26/17 12:00 98.3 77 25 127/55 100 Nasal Cannula 3.0 03/26/17 12:00 85 03/26/17 11:00 86 17 131/99 100 Nasal Cannula 3.0 03/26/17 10:00 93 16 112/54 100 Nasal Cannula 3.0 Intake and Output 03/27/17 03/28/17 19:00 07:00 # Bowel Movements 1 Laboratory Tests 03/27/17 04:00: White Blood Count 22.2*H, Red Blood Count 3.77L, Hemoglobin 11.5L, Hematocrit 33.8L, Mean Corpuscular Volume 90, Mean Corpuscular Hemoglobin 30.6, Mean Corpuscular Hemoglobin Concent 34.1, Red Cell Distribution Width 16.3H, Platelet Count 71L, Mean Platelet Volume 11.5H, Neutrophils (%) (Auto) , Lymphocytes (%) (Auto) , Monocytes (%) (Auto) , Eosinophils (%) (Auto) , Basophils (%) (Auto) , Differential Total Cells Counted 100, Neutrophils % ( Manual) 77H, Lymphocytes % (Manual) 4L, Monocytes % (Manual) 9, Eosinophils % ( Manual) 4H, Basophils % (Manual) 0, Band Neutrophils 6, Platelet Estimate DecreasedL, Platelet Morphology Normal, Hypochromasia 1+, Anisocytosis 1+, Sodium Level 141, Potassium Level 2.8L, Chloride Level 107, Carbon Dioxide Level 20, Anion Gap 14, Blood Urea Nitrogen 59H, Creatinine 1.6H, Estimat Glomerular Filtration Rate , Glucose Level 63L, Calcium Level 7.8L, Phosphorus Level 2.2L, Magnesium Level 2.1, Total Bilirubin 1.3H, Direct Bilirubin 0.8H, Aspartate Amino Transf (AST/SGOT) 65H, Alanine Aminotransferase (ALT/SGPT) 188H , Alkaline Phosphatase 295H, Total Protein 4.9L, Albumin 2.1L, Globulin 2.8, Albumin/Globulin Ratio 0.7L 03/27/17 08:17: Arterial Blood pH 7.420, Arterial Blood Partial Pressure CO2 32.7L, Arterial Blood Partial Pressure O2 80.6, Arterial Blood HCO3 21.2L, Arterial Blood Oxygen Saturation 95.0, Arterial Blood Base Excess -2.4, Myron Test Positive Height (Feet): 5 Height (Inches): 5.00 Weight (Pounds): 155 General Appearance: no apparent distress Objective PE FAITH Cornejo Mar 27, 2017 09:13
[2017-03-27] MEDS: Midodrine 10mg tab GT SCH ×3 (09:14→18:15)
--- NOTE | 2017-03-27 09:28 | General Progress Note ---
Assessment/Plan Problem List: (1) Anemia ICD Codes: D64.9 - Anemia, unspecified SNOMED: 674542047 (2) G tube feedings ICD Codes: Z93.1 - Gastrostomy status SNOMED: 041146055, 281887959 (3) Elevated LFTs ICD Codes: R79.89 - Other specified abnormal findings of blood chemistry SNOMED: 845611346 (4) Prostate cancer ICD Codes: C61 - Malignant neoplasm of prostate SNOMED: 845806866 (5) Dysphagia ICD Codes: R13.10 - Dysphagia SNOMED: 41080753 (6) Dementia ICD Codes: F03.90 - Unspecified dementia without behavioral disturbance SNOMED: 34008943 (7) COPD (chronic obstructive pulmonary disease) ICD Codes: J44.9 - Chronic obstructive pulmonary disease, unspecified SNOMED: 28006503 Assessment/Plan GTF monitor labs stool for C.diff fu LFTS replace K Subjective ROS Limited/Unobtainable: No Allergies: Coded Allergies: No Known Allergies (Verified , 09/26/12) Objective Last 24 Hour Vital Signs Date Time Temp Pulse Resp B/P (MAP) Pulse Ox O2 Delivery O2 Flow Rate FiO2 03/27/17 08:31 90 03/27/17 08:27 Nasal Cannula 3.0 32 03/27/17 08:27 95 Nasal Cannula 3.0 03/27/17 08:00 98.2 91 20 136/56 97 Nasal Cannula 3.0 03/27/17 04:00 88 03/27/17 04:00 97.3 61 24 98/62 94 Nasal Cannula 3.0 03/27/17 00:00 81 03/27/17 00:00 97.4 88 16 96/61 96 Nasal Cannula 3.0 03/26/17 20:00 97.3 86 16 99/63 96 Nasal Cannula 3.0 03/26/17 19:07 80 03/26/17 19:05 Nasal Cannula 3.0 03/26/17 19:05 95 Nasal Cannula 3.0 03/26/17 17:50 98.0 83 22 110/56 97 Nasal Cannula 3.0 03/26/17 17:00 93 25 129/63 100 Nasal Cannula 3.0 03/26/17 16:00 98.7 94 20 128/54 100 Nasal Cannula 3.0 03/26/17 16:00 91 03/26/17 15:00 92 18 131/71 100 Nasal Cannula 3.0 03/26/17 14:00 94 17 105/70 100 Nasal Cannula 3.0 03/26/17 13:00 89 17 97/77 100 Nasal Cannula 3.0 03/26/17 12:00 98.3 77 25 127/55 100 Nasal Cannula 3.0 03/26/17 12:00 85 03/26/17 11:00 86 17 131/99 100 Nasal Cannula 3.0 03/26/17 10:00 93 16 112/54 100 Nasal Cannula 3.0 Intake and Output 03/27/17 03/28/17 19:00 07:00 # Bowel Movements 1 Laboratory Tests 03/27/17 04:00: White Blood Count 22.2*H, Red Blood Count 3.77L, Hemoglobin 11.5L, Hematocrit 33.8L, Mean Corpuscular Volume 90, Mean Corpuscular Hemoglobin 30.6, Mean Corpuscular Hemoglobin Concent 34.1, Red Cell Distribution Width 16.3H, Platelet Count 71L, Mean Platelet Volume 11.5H, Neutrophils (%) (Auto) , Lymphocytes (%) (Auto) , Monocytes (%) (Auto) , Eosinophils (%) (Auto) , Basophils (%) (Auto) , Differential Total Cells Counted 100, Neutrophils % ( Manual) 77H, Lymphocytes % (Manual) 4L, Monocytes % (Manual) 9, Eosinophils % ( Manual) 4H, Basophils % (Manual) 0, Band Neutrophils 6, Platelet Estimate DecreasedL, Platelet Morphology Normal, Hypochromasia 1+, Anisocytosis 1+, Sodium Level 141, Potassium Level 2.8L, Chloride Level 107, Carbon Dioxide Level 20, Anion Gap 14, Blood Urea Nitrogen 59H, Creatinine 1.6H, Estimat Glomerular Filtration Rate , Glucose Level 63L, Calcium Level 7.8L, Phosphorus Level 2.2L, Magnesium Level 2.1, Total Bilirubin 1.3H, Direct Bilirubin 0.8H, Aspartate Amino Transf (AST/SGOT) 65H, Alanine Aminotransferase (ALT/SGPT) 188H , Alkaline Phosphatase 295H, Total Protein 4.9L, Albumin 2.1L, Globulin 2.8, Albumin/Globulin Ratio 0.7L 03/27/17 08:17: Arterial Blood pH 7.420, Arterial Blood Partial Pressure CO2 32.7L, Arterial Blood Partial Pressure O2 80.6, Arterial Blood HCO3 21.2L, Arterial Blood Oxygen Saturation 95.0, Arterial Blood Base Excess -2.4, Myron Test Positive Height (Feet): 5 Height (Inches): 5.00 Weight (Pounds): 155 General Appearance: no apparent distress EENT: normal ENT inspection Neck: supple Cardiovascular: normal rate Respiratory/Chest: decreased breath sounds Abdomen: normal bowel sounds, non tender, soft Extremities: non-tender DAVID ESTRADA Mar 27, 2017 09:28
[2017-03-27 12:00] VITALS: BP 94/57
[2017-03-27 16:00] VITALS: BP 106/68
--- NOTE | 2017-03-27 16:41 | Cardiology Progress Note ---
Assessment/Plan Assessment/Plan 1. Septic shock with multi-organ failure, improving, renal and liver failure on improvement, creat down to 1.6, liver enzymes downtrending, continue hydration. 2. Normal LV systolic function with no wall motion abnormalities. 3. Elevated troponin level, possibly combination of OSCAR and hypotension, cannot exclude NSTEMI (demand-ischemia), not a suitable candidate for ischemic work up given underlying mental status, 12 lead ECG shows no STT changes, Echo with no wall motion abnormalities, medical therapy. Subjective Subjective Sinus rhythm at 85. Transferred to [facility], improved clinical condition. Non-verbal Objective Last 24 Hour Vital Signs Date Time Temp Pulse Resp B/P (MAP) Pulse Ox O2 Delivery O2 Flow Rate FiO2 03/27/17 12:00 97.9 94 20 94/57 95 Nasal Cannula 3.0 03/27/17 12:00 88 03/27/17 08:31 90 03/27/17 08:27 Nasal Cannula 3.0 32 03/27/17 08:27 95 Nasal Cannula 3.0 03/27/17 08:00 98.2 91 20 136/56 97 Nasal Cannula 3.0 03/27/17 04:00 88 03/27/17 04:00 97.3 61 24 98/62 94 Nasal Cannula 3.0 03/27/17 00:00 81 03/27/17 00:00 97.4 88 16 96/61 96 Nasal Cannula 3.0 03/26/17 20:00 97.3 86 16 99/63 96 Nasal Cannula 3.0 03/26/17 19:07 80 03/26/17 19:05 Nasal Cannula 3.0 03/26/17 19:05 95 Nasal Cannula 3.0 03/26/17 17:50 98.0 83 22 110/56 97 Nasal Cannula 3.0 03/26/17 17:00 93 25 129/63 100 Nasal Cannula 3.0 Intake and Output 03/27/17 03/28/17 19:00 07:00 # Bowel Movements 3 2D Echo: LVEF 55%, Grade I LVDD Laboratory Tests Test 03/27/17 04:00 03/27/17 08:17 White Blood Count 22.2 K/UL (4.8-10.8) *H Red Blood Count 3.77 M/UL (4.70-6.10) L Hemoglobin 11.5 G/DL (14.2-18.0) L Hematocrit 33.8 % (42.0-52.0) L Mean Corpuscular Volume 90 FL (80-99) Mean Corpuscular Hemoglobin 30.6 PG (27.0-31.0) Mean Corpuscular Hemoglobin Concent 34.1 G/DL (32.0-36.0) Red Cell Distribution Width 16.3 % (11.6-14.8) H Platelet Count 71 K/UL (150-450) L Mean Platelet Volume 11.5 FL (6.5-10.1) H Neutrophils (%) (Auto) % (45.0-75.0) Lymphocytes (%) (Auto) % (20.0-45.0) Monocytes (%) (Auto) % (1.0-10.0) Eosinophils (%) (Auto) % (0.0-3.0) Basophils (%) (Auto) % (0.0-2.0) Differential Total Cells Counted 100 Neutrophils % (Manual) 77 % (45-75) H Lymphocytes % (Manual) 4 % (20-45) L Monocytes % (Manual) 9 % (1-10) Eosinophils % (Manual) 4 % (0-3) H Basophils % (Manual) 0 % (0-2) Band Neutrophils 6 % (0-8) Platelet Estimate Decreased L Platelet Morphology Normal Hypochromasia 1+ Anisocytosis 1+ Sodium Level 141 mEQ/L (135-145) Potassium Level 2.8 mEQ/L (3.4-4.9) L Chloride Level 107 mEQ/L (98-107) Carbon Dioxide Level 20 mEQ/L (20-30) Anion Gap 14 (5-15) Blood Urea Nitrogen 59 mg/dL (7-23) H Creatinine 1.6 mg/dL (0.7-1.2) H Estimat Glomerular Filtration Rate mL/min (>60) Glucose Level 63 mg/dL (74-106) L Calcium Level 7.8 mg/dL (8.6-10.2) L Phosphorus Level 2.2 mg/dL (2.5-4.8) L Magnesium Level 2.1 mg/dL (1.7-2.5) Total Bilirubin 1.3 mg/dL (0.0-1.2) H Direct Bilirubin 0.8 mg/dL (0.1-0.3) H Aspartate Amino Transf (AST/SGOT) 65 U/L (5-40) H Alanine Aminotransferase (ALT/SGPT) 188 U/L (3-41) H Alkaline Phosphatase 295 U/L (40-129) H Total Protein 4.9 g/dL (6.6-8.7) L Albumin 2.1 g/dL (3.5-5.2) L Globulin 2.8 g/dL Albumin/Globulin Ratio 0.7 (1.0-2.7) L Arterial Blood pH 7.420 (7.350-7.450) Arterial Blood Partial Pressure CO2 32.7 mmHg (35.0-45.0) L Arterial Blood Partial Pressure O2 80.6 mmHg (75.0-100.0) Arterial Blood HCO3 21.2 mmol/L (22.0-26.0) L Arterial Blood Oxygen Saturation 95.0 % (92.0-98.0) Arterial Blood Base Excess -2.4 Myron Test Positive Objective HEENT: normocephalic, atraumatic, PERRL, EOMI Neck: No JVD, no carotid bruit, carotid upstroke 2+ B/L Respiratory: Clear B/L Cardiovascular: regular rate, rhythm, normal S1S2, no murmurs, gallops or rubs. Gastrointestinal: normal inspection, normal bowel sounds, non tender, soft, no guarding, no hernia Musculoskeletal: normal inspection, no edema, clubbing or cyanosis, negative Christopher's Sign FRANCISCO SPAIN Mar 27, 2017 16:41
[2017-03-27 20:00] VITALS: BP 110/62
[2017-03-27] MEDS: Dyna-Hex 2% Top Sol 8oz TOPIC SCH (20:20)
--- NOTE | 2017-03-27 21:44 | General Progress Note ---
Assessment/Plan Status: unchanged Assessment/Plan IMPRESSION: 1. Leukocytosis with left shift. --> WBC count critical value, on antibiotic IV. Continues to improve. 2. Leukemoid reaction. 3. Polycythemia, reactive, secondary to sepsis. 4. Erythrocytosis, reactive. 5. Bandemia. 6. Acute renal insufficiency. 7. Transaminitis. 8. Bilirubinemia. 9. Encephalopathy. 10. Sepsis. 11. Septic shock. 12. Hypertension. 13. Chronic obstructive pulmonary disease exacerbation. 14. Respiratory failure. 15. Dysphagia. 16. Gastrostomy tube placement. 17. History of cerebral infarct, history of cerebrovascular accident. 18. Dementia. 19. Alzheimer's. 20. Seizure. 21. Weakness. 22. Failure to thrive. RECOMMENDATIONS: 1. Watch count. 2. Watch coagulopathy. 3. Antibiotic IV. 4. Heparin subcutaneous. 5. PRBC transfusion p.r.n. basis. 6. Respiratory treatment. 7. Infectious Disease followup. 8. Pulmonary followup. 9. Cardiology followup. 10. Skin care. 11. Nutrition. 12. Close followup. 13. Continue current treatment. Subjective Date patient seen: Mar 27, 2017 Time patient seen: 06:00 Allergies: Coded Allergies: No Known Allergies (Verified , 09/26/12) Subjective Ongoing tube feedings. Obtunded. Patient in ICU. Afebrile. Leukocytosis improving. Sleeping. Objective Last 24 Hour Vital Signs Date Time Temp Pulse Resp B/P (MAP) Pulse Ox O2 Delivery O2 Flow Rate FiO2 03/27/17 20:00 98.0 84 20 110/62 98 Nasal Cannula 3.0 03/27/17 16:00 98.2 85 18 106/68 98 Nasal Cannula 3.0 03/27/17 16:00 88 03/27/17 12:00 97.9 94 20 94/57 95 Nasal Cannula 3.0 03/27/17 12:00 88 03/27/17 08:31 90 03/27/17 08:27 Nasal Cannula 3.0 32 03/27/17 08:27 95 Nasal Cannula 3.0 03/27/17 08:00 98.2 91 20 136/56 97 Nasal Cannula 3.0 03/27/17 04:00 88 03/27/17 04:00 97.3 61 24 98/62 94 Nasal Cannula 3.0 03/27/17 00:00 81 03/27/17 00:00 97.4 88 16 96/61 96 Nasal Cannula 3.0 Intake and Output 03/27/17 03/28/17 18:59 06:59 Intake Total 1160 ml 93 ml Output Total 850 ml Balance 310 ml 93 ml Intake Free Water 200 ml IV Total 93 ml Tube Feeding 780 ml Other 180 ml Output Urine Total 850 ml # Bowel Movements 4 Laboratory Tests 03/27/17 04:00: White Blood Count 22.2*H, Red Blood Count 3.77L, Hemoglobin 11.5L, Hematocrit 33.8L, Mean Corpuscular Volume 90, Mean Corpuscular Hemoglobin 30.6, Mean Corpuscular Hemoglobin Concent 34.1, Red Cell Distribution Width 16.3H, Platelet Count 71L, Mean Platelet Volume 11.5H, Neutrophils (%) (Auto) , Lymphocytes (%) (Auto) , Monocytes (%) (Auto) , Eosinophils (%) (Auto) , Basophils (%) (Auto) , Differential Total Cells Counted 100, Neutrophils % ( Manual) 77H, Lymphocytes % (Manual) 4L, Monocytes % (Manual) 9, Eosinophils % ( Manual) 4H, Basophils % (Manual) 0, Band Neutrophils 6, Platelet Estimate DecreasedL, Platelet Morphology Normal, Hypochromasia 1+, Anisocytosis 1+, Sodium Level 141, Potassium Level 2.8L, Chloride Level 107, Carbon Dioxide Level 20, Anion Gap 14, Blood Urea Nitrogen 59H, Creatinine 1.6H, Estimat Glomerular Filtration Rate , Glucose Level 63L, Calcium Level 7.8L, Phosphorus Level 2.2L, Magnesium Level 2.1, Total Bilirubin 1.3H, Direct Bilirubin 0.8H, Aspartate Amino Transf (AST/SGOT) 65H, Alanine Aminotransferase (ALT/SGPT) 188H , Alkaline Phosphatase 295H, Total Protein 4.9L, Albumin 2.1L, Globulin 2.8, Albumin/Globulin Ratio 0.7L 03/27/17 08:17: Arterial Blood pH 7.420, Arterial Blood Partial Pressure CO2 32.7L, Arterial Blood Partial Pressure O2 80.6, Arterial Blood HCO3 21.2L, Arterial Blood Oxygen Saturation 95.0, Arterial Blood Base Excess -2.4, Myron Test Positive Height (Feet): 5 Height (Inches): 5.00 Weight (Pounds): 155 General Appearance: mild distress Neck: normal alignment Cardiovascular: normal rate, regular rhythm Respiratory/Chest: chest wall non-tender, lungs clear Abdomen: non tender, soft LYRIC SCHWARTZ Mar 27, 2017 21:44
[2017-03-28] VITALS: BP 105/59
[2017-03-28] MEDS: Clindamycin 600mg 50 ML IV SCH ×3 (01:30→17:49)
[2017-03-28 04:00] VITALS: BP 140/72
[2017-03-28] MEDS: Meropenem 1 GM in NS 110 ML IVPB SCH ×3 (05:30→21:49)
[2017-03-28 06:59] LABS: MEAN CORPUSCULAR HEMOGLOBIN 30.9 PG (27.0-31.0); MEAN CORPUSCULAR HGB CONC 34.9 G/DL (32.0-36.0); MEAN CORPUSCULAR VOLUME 89 FL (80-99); MEAN PLATELET VOLUME 13.6 FL (6.5-10.1); PLATELET COUNT 79 K/UL (150-450); RED BLOOD COUNT 3.84 M/UL (4.70-6.10); RED CELL DISTRIBUTION WIDTH 16.1 % (11.6-14.8); WHITE BLOOD COUNT 19.4 K/UL (4.8-10.8)
[2017-03-28 07:25] LABS: ALANINE AMINOTRANSFERASE 121 U/L (3-41); ALBUMIN/GLOBULIN RATIO 0.8 (1.0-2.7); ANION GAP 10 (5-15); ASPARTATE AMINO TRANSFERASE 35 U/L (5-40); CALCIUM 7.8 mg/dL (8.6-10.2); CARBON DIOXIDE 22 mEQ/L (20-30); CHLORIDE 117 mEQ/L (98-107); CREATININE 1.3 mg/dL (0.7-1.2); HEMOLYSIS 5; SODIUM 149 mEQ/L (135-145); TOTAL PROTEIN 4.7 g/dL (6.6-8.7)
[2017-03-28 08:00] VITALS: BP 122/71
--- NOTE | 2017-03-28 08:11 | General Progress Note ---
Assessment/Plan Problem List: (1) Anemia ICD Codes: D64.9 - Anemia, unspecified SNOMED: 293131405 (2) G tube feedings ICD Codes: Z93.1 - Gastrostomy status SNOMED: 453906464, 734365101 (3) Elevated LFTs ICD Codes: R79.89 - Other specified abnormal findings of blood chemistry SNOMED: 762130919 (4) Prostate cancer ICD Codes: C61 - Malignant neoplasm of prostate SNOMED: 640689063 (5) Dysphagia ICD Codes: R13.10 - Dysphagia SNOMED: 08215453 (6) Dementia ICD Codes: F03.90 - Unspecified dementia without behavioral disturbance SNOMED: 84186833 (7) COPD (chronic obstructive pulmonary disease) ICD Codes: J44.9 - Chronic obstructive pulmonary disease, unspecified SNOMED: 80549359 Assessment/Plan GTF monitor labs stool for C.diff fu LFTS Subjective ROS Limited/Unobtainable: No Allergies: Coded Allergies: No Known Allergies (Verified , 09/26/12) Objective Last 24 Hour Vital Signs Date Time Temp Pulse Resp B/P (MAP) Pulse Ox O2 Delivery O2 Flow Rate FiO2 03/28/17 04:00 98.2 75 21 140/72 96 Nasal Cannula 3.0 03/28/17 03:36 101 03/28/17 00:00 98.0 87 19 105/59 98 Nasal Cannula 3.0 03/28/17 00:00 87 03/27/17 20:30 79 03/27/17 20:00 98.0 84 20 110/62 98 Nasal Cannula 3.0 03/27/17 20:00 98 Nasal Cannula 3.0 03/27/17 20:00 Nasal Cannula 3.0 32 03/27/17 16:00 98.2 85 18 106/68 98 Nasal Cannula 3.0 03/27/17 16:00 88 03/27/17 12:00 97.9 94 20 94/57 95 Nasal Cannula 3.0 03/27/17 12:00 88 03/27/17 08:31 90 03/27/17 08:27 Nasal Cannula 3.0 32 03/27/17 08:27 95 Nasal Cannula 3.0 Laboratory Tests 03/27/17 08:17: Arterial Blood pH 7.420, Arterial Blood Partial Pressure CO2 32.7L, Arterial Blood Partial Pressure O2 80.6, Arterial Blood HCO3 21.2L, Arterial Blood Oxygen Saturation 95.0, Arterial Blood Base Excess -2.4, Myron Test Positive 03/28/17 06:00: White Blood Count 19.4H, Red Blood Count 3.84L, Hemoglobin 11.9L, Hematocrit 34.0L, Mean Corpuscular Volume 89, Mean Corpuscular Hemoglobin 30.9, Mean Corpuscular Hemoglobin Concent 34.9, Red Cell Distribution Width 16.1H, Platelet Count 79L, Mean Platelet Volume 13.6H, Neutrophils (%) (Auto) , Lymphocytes (%) (Auto) , Monocytes (%) (Auto) , Eosinophils (%) (Auto) , Basophils (%) (Auto) , Neutrophils % (Manual) [Pending], Lymphocytes % (Manual) [Pending], Platelet Estimate [Pending], Platelet Morphology [Pending], Sodium Level 149H, Potassium Level 4.0, Chloride Level 117H, Carbon Dioxide Level 22, Anion Gap 10, Blood Urea Nitrogen 56H, Creatinine 1.3H, Estimat Glomerular Filtration Rate , Glucose Level 175#H, Calcium Level 7.8L, Total Bilirubin 0.7, Aspartate Amino Transf (AST/SGOT) 35, Alanine Aminotransferase (ALT/SGPT) 121H, Alkaline Phosphatase 318H, Total Protein 4.7L, Albumin 2.1L, Globulin 2.6, Albumin/Globulin Ratio 0.8L Height (Feet): 5 Height (Inches): 5.00 Weight (Pounds): 155 General Appearance: no apparent distress EENT: normal ENT inspection Neck: supple Cardiovascular: normal rate Respiratory/Chest: decreased breath sounds Abdomen: normal bowel sounds, non tender, soft Extremities: non-tender DAVID ESTRADA Mar 28, 2017 08:11
[2017-03-28 09:34] LABS: ANISOCYTOSIS 1+; BAND NEUTROPHILS % (MANUAL) 9 % (0-8); BASOPHILS % (MANUAL) 0 % (0-2); EOSINOPHILS % (MANUAL) 4 % (0-3); HYPOCHROMASIA 1+; LYMPHOCYTES % (MANUAL) 7 % (20-45); NEUTROPHILS % (MANUAL) 75 % (45-75); PLATELET ESTIMATE DECREASED; PLATELET MORPHOLOGY NORMAL; TOTAL CELLS COUNTED 100
--- NOTE | 2017-03-28 09:50 | Diagnostic Imaging Report ---
Indication: DYSPNEA Technique: One view of the chest Comparison: Post PICC radiograph 03/26/2017 Findings: Right arm PICC remains at the level of the right innominate vein. Bilateral basilar consolidation and atelectasis and pleural fluid persists, unchanged. Heart size is normal. Unremarkable previous demonstrated central venous catheter Impression: Persistent bilateral pleural effusions and parenchymal disease, over one day Interim central line removal This agrees with the preliminary interpretation provided overnight by [facility] teleradiology service.
[2017-03-28] MEDS: Midodrine 10mg tab GT SCH ×3 (09:53→17:50)
--- NOTE | 2017-03-28 10:56 | General Progress Note ---
Assessment/Plan Assessment/Plan ASSESSMENT: #. Leukocytosis with left shift. Likely was 2/2 to infection since has improved , is on abx --> WBC count critical value, on antibiotic IV. Continues to improve. #. Elevated PSA of 126, any PSA of >50 almost certainly represents prostate cancer --> Will order a bone survey however would not treat at the moment given poor performance status, hospice eval #. Elevated CEA of >20, agree if not a treatment candidate at this moment #. Polycythemia, reactive, secondary to sepsis. #. Erythrocytosis, reactive. #. Acute renal insufficiency. #. Transaminitis. #. Bilirubinemia. #. Encephalopathy. #. G-tube replacement RECOMMENDATIONS: 1. Watch count. 2. Watch coagulopathy. 3. Antibiotic IV. 4. Heparin subcutaneous. 5. PRBC transfusion p.r.n. basis. 6. Respiratory treatment. 7. Infectious Disease followup. 8. Pulmonary followup. 9. Cardiology followup. 10. Skin care. 11. Nutrition. 12. Close followup. 13. Continue current treatment. Subjective Constitutional: Reports: no symptoms HEENT: Reports: no symptoms Cardiovascular: Reports: no symptoms Respiratory: Reports: no symptoms Gastrointestinal/Abdominal: Reports: no symptoms Genitourinary: Reports: no symptoms Neurologic/Psychiatric: Reports: no symptoms Endocrine: Reports: no symptoms Hematologic/Lymphatic: Reports: no symptoms Allergies: Coded Allergies: No Known Allergies (Verified , 09/26/12) Subjective Ongoing tube feedings. Obtunded.on NC Objective Last 24 Hour Vital Signs Date Time Temp Pulse Resp B/P (MAP) Pulse Ox O2 Delivery O2 Flow Rate FiO2 03/28/17 08:00 99.0 99 30 122/71 99 Nasal Cannula 3.0 03/28/17 08:00 93 03/28/17 04:00 98.2 75 21 140/72 96 Nasal Cannula 3.0 03/28/17 03:36 101 03/28/17 00:00 98.0 87 19 105/59 98 Nasal Cannula 3.0 03/28/17 00:00 87 03/27/17 20:30 79 03/27/17 20:00 98.0 84 20 110/62 98 Nasal Cannula 3.0 03/27/17 20:00 98 Nasal Cannula 3.0 03/27/17 20:00 Nasal Cannula 3.0 32 03/27/17 16:00 98.2 85 18 106/68 98 Nasal Cannula 3.0 03/27/17 16:00 88 03/27/17 12:00 97.9 94 20 94/57 95 Nasal Cannula 3.0 03/27/17 12:00 88 Intake and Output 03/28/17 03/29/17 19:00 07:00 # Bowel Movements 1 Laboratory Tests 03/28/17 06:00: White Blood Count 19.4H, Red Blood Count 3.84L, Hemoglobin 11.9L, Hematocrit 34.0L, Mean Corpuscular Volume 89, Mean Corpuscular Hemoglobin 30.9, Mean Corpuscular Hemoglobin Concent 34.9, Red Cell Distribution Width 16.1H, Platelet Count 79L, Mean Platelet Volume 13.6H, Neutrophils (%) (Auto) , Lymphocytes (%) (Auto) , Monocytes (%) (Auto) , Eosinophils (%) (Auto) , Basophils (%) (Auto) , Differential Total Cells Counted 100, Neutrophils % ( Manual) 75, Lymphocytes % (Manual) 7L, Monocytes % (Manual) 5, Eosinophils % ( Manual) 4H, Basophils % (Manual) 0, Band Neutrophils 9H, Platelet Estimate DecreasedL, Platelet Morphology Normal, Hypochromasia 1+, Anisocytosis 1+, Sodium Level 149H, Potassium Level 4.0, Chloride Level 117H, Carbon Dioxide Level 22, Anion Gap 10, Blood Urea Nitrogen 56H, Creatinine 1.3H, Estimat Glomerular Filtration Rate , Glucose Level 175#H, Calcium Level 7.8L, Total Bilirubin 0.7, Aspartate Amino Transf (AST/SGOT) 35, Alanine Aminotransferase ( ALT/SGPT) 121H, Alkaline Phosphatase 318H, Total Protein 4.7L, Albumin 2.1L, Globulin 2.6, Albumin/Globulin Ratio 0.8L Height (Feet): 5 Height (Inches): 5.00 Weight (Pounds): 155 General Appearance: no apparent distress EENT: TMs normal Neck: normal alignment Cardiovascular: regular rhythm Respiratory/Chest: lungs clear Abdomen: non tender Extremities: normal range of motion Edema: 1+ Leg (L), 1+ Leg (R) Edema: mild edema Neurologic: alert Skin: warm/dry LYRIC SCHWARTZ Mar 28, 2017 10:56
--- NOTE | 2017-03-28 11:22 | General Progress Note ---
Assessment/Plan Status: stable Assessment/Plan - Acute Renal Failure- Cr lower - Dislodged gastrostomy tube - UTI (urinary tract infection), with severe leukocytosis, high Lactic acid - h/o Seizure - Dementia - Sepsis, WBCs lowering - COPD (chronic obstructive pulmonary disease) - Cachexia - High Troponin Plan: change IV to D5 Keep BP above 100 Avoid Nephrotoxics Monitor renal parameters Per consultants Subjective ROS Limited/Unobtainable: Yes Allergies: Coded Allergies: No Known Allergies (Verified , 09/26/12) Objective Last 24 Hour Vital Signs Date Time Temp Pulse Resp B/P (MAP) Pulse Ox O2 Delivery O2 Flow Rate FiO2 03/28/17 08:00 99.0 99 30 122/71 99 Nasal Cannula 3.0 03/28/17 08:00 93 03/28/17 04:00 98.2 75 21 140/72 96 Nasal Cannula 3.0 03/28/17 03:36 101 03/28/17 00:00 98.0 87 19 105/59 98 Nasal Cannula 3.0 03/28/17 00:00 87 03/27/17 20:30 79 03/27/17 20:00 98.0 84 20 110/62 98 Nasal Cannula 3.0 03/27/17 20:00 98 Nasal Cannula 3.0 03/27/17 20:00 Nasal Cannula 3.0 32 03/27/17 16:00 98.2 85 18 106/68 98 Nasal Cannula 3.0 03/27/17 16:00 88 03/27/17 12:00 97.9 94 20 94/57 95 Nasal Cannula 3.0 03/27/17 12:00 88 Intake and Output 03/28/17 03/29/17 19:00 07:00 Intake Total 735 ml Balance 735 ml Intake Free Water 50 ml IV Total 425 ml Tube Feeding 260 ml # Bowel Movements 1 Laboratory Tests 03/28/17 06:00: White Blood Count 19.4H, Red Blood Count 3.84L, Hemoglobin 11.9L, Hematocrit 34.0L, Mean Corpuscular Volume 89, Mean Corpuscular Hemoglobin 30.9, Mean Corpuscular Hemoglobin Concent 34.9, Red Cell Distribution Width 16.1H, Platelet Count 79L, Mean Platelet Volume 13.6H, Neutrophils (%) (Auto) , Lymphocytes (%) (Auto) , Monocytes (%) (Auto) , Eosinophils (%) (Auto) , Basophils (%) (Auto) , Differential Total Cells Counted 100, Neutrophils % ( Manual) 75, Lymphocytes % (Manual) 7L, Monocytes % (Manual) 5, Eosinophils % ( Manual) 4H, Basophils % (Manual) 0, Band Neutrophils 9H, Platelet Estimate DecreasedL, Platelet Morphology Normal, Hypochromasia 1+, Anisocytosis 1+, Sodium Level 149H, Potassium Level 4.0, Chloride Level 117H, Carbon Dioxide Level 22, Anion Gap 10, Blood Urea Nitrogen 56H, Creatinine 1.3H, Estimat Glomerular Filtration Rate , Glucose Level 175#H, Calcium Level 7.8L, Total Bilirubin 0.7, Aspartate Amino Transf (AST/SGOT) 35, Alanine Aminotransferase ( ALT/SGPT) 121H, Alkaline Phosphatase 318H, Total Protein 4.7L, Albumin 2.1L, Globulin 2.6, Albumin/Globulin Ratio 0.8L Height (Feet): 5 Height (Inches): 5.00 Weight (Pounds): 155 General Appearance: no apparent distress Objective PE unchanged FAITH SEARS Mar 28, 2017 11:22
--- NOTE | 2017-03-28 11:25 | Pulmonology Progress Note ---
Assessment/Plan Problems: (1) Septic shock (2) ATN (acute tubular necrosis) (3) Suprapubic catheter (4) Gross hematuria (5) Prostate cancer (6) Cachexia (7) COPD (chronic obstructive pulmonary disease) (8) Dementia Assessment/Plan improving respiratory treatment IV abx check electrolytes cxr periodically dvt prophylaxis tolerating feeding Subjective Constitutional: Reports: no symptoms HEENT: Repors: no symptoms Cardiovascular: Reports: no symptoms Allergies: Coded Allergies: No Known Allergies (Verified , 09/26/12) Objective Last 24 Hour Vital Signs Date Time Temp Pulse Resp B/P (MAP) Pulse Ox O2 Delivery O2 Flow Rate FiO2 03/28/17 08:00 99.0 99 30 122/71 99 Nasal Cannula 3.0 03/28/17 08:00 93 03/28/17 04:00 98.2 75 21 140/72 96 Nasal Cannula 3.0 03/28/17 03:36 101 03/28/17 00:00 98.0 87 19 105/59 98 Nasal Cannula 3.0 03/28/17 00:00 87 03/27/17 20:30 79 03/27/17 20:00 98.0 84 20 110/62 98 Nasal Cannula 3.0 03/27/17 20:00 98 Nasal Cannula 3.0 03/27/17 20:00 Nasal Cannula 3.0 32 03/27/17 16:00 98.2 85 18 106/68 98 Nasal Cannula 3.0 03/27/17 16:00 88 03/27/17 12:00 97.9 94 20 94/57 95 Nasal Cannula 3.0 03/27/17 12:00 88 Intake and Output 03/28/17 03/29/17 19:00 07:00 Intake Total 735 ml Balance 735 ml Intake Free Water 50 ml IV Total 425 ml Tube Feeding 260 ml # Bowel Movements 1 General Appearance: cachetic HEENT: normocephalic, anicteric Respiratory/Chest: chest wall non-tender, lungs clear Cardiovascular: normal peripheral pulses, normal rate Abdomen: normal bowel sounds, soft, non tender Genitourinary: normal external genitalia Extremities: no cyanosis, no clubbing Microbiology Date/Time Source Procedure Growth Status 03/28/17 05:00 Stool Clostridium difficile Toxin Assay - Final Complete Laboratory Tests 03/28/17 06:00: White Blood Count 19.4H, Red Blood Count 3.84L, Hemoglobin 11.9L, Hematocrit 34.0L, Mean Corpuscular Volume 89, Mean Corpuscular Hemoglobin 30.9, Mean Corpuscular Hemoglobin Concent 34.9, Red Cell Distribution Width 16.1H, Platelet Count 79L, Mean Platelet Volume 13.6H, Neutrophils (%) (Auto) , Lymphocytes (%) (Auto) , Monocytes (%) (Auto) , Eosinophils (%) (Auto) , Basophils (%) (Auto) , Differential Total Cells Counted 100, Neutrophils % ( Manual) 75, Lymphocytes % (Manual) 7L, Monocytes % (Manual) 5, Eosinophils % ( Manual) 4H, Basophils % (Manual) 0, Band Neutrophils 9H, Platelet Estimate DecreasedL, Platelet Morphology Normal, Hypochromasia 1+, Anisocytosis 1+, Sodium Level 149H, Potassium Level 4.0, Chloride Level 117H, Carbon Dioxide Level 22, Anion Gap 10, Blood Urea Nitrogen 56H, Creatinine 1.3H, Estimat Glomerular Filtration Rate , Glucose Level 175#H, Calcium Level 7.8L, Total Bilirubin 0.7, Aspartate Amino Transf (AST/SGOT) 35, Alanine Aminotransferase ( ALT/SGPT) 121H, Alkaline Phosphatase 318H, Total Protein 4.7L, Albumin 2.1L, Globulin 2.6, Albumin/Globulin Ratio 0.8L Current Medications Medications (Trade) Dose Ordered Sig/Matt Route PRN Reason Start Time Stop Time Status Last Admin Dose Admin Acetaminophen (Tylenol) 650 mg Q4H PRN ORAL Mild Pain (Pain Scale 1-3) 03/26/17 18:00 04/22/17 17:59 Acetaminophen (Tylenol) 650 mg Q4H PRN ORAL T>100.5 03/26/17 18:15 04/22/17 10:14 Chlorhexidine Gluconate (Mari-Hex 2%) 1 applic QHS TOPIC 03/27/17 21:00 04/22/17 20:59 03/27/17 20:20 Clindamycin HCl/ Dextrose 50 ml @ 100 mls/hr Q8H IV 03/27/17 02:00 04/03/17 01:59 03/28/17 09:53 Clonidine HCl (Catapres) 0.1 mg Q4H PRN ORAL SBP > 160 mmHg 03/26/17 18:00 04/22/17 17:59 Dextrose 1,000 ml @ 75 mls/hr [id number] IV 03/28/17 11:30 04/27/17 11:29 UNV Lansoprazole (Prevacid) 30 mg DAILY ORAL 03/27/17 09:00 04/23/17 08:59 03/28/17 09:53 Lorazepam (Ativan 2mg/ml 1ml) 0.5 mg Q4H PRN IV For Anxiety 03/26/17 18:15 03/30/17 10:14 Meropenem 1 gm/ Sodium Chloride 110 ml @ 220 mls/hr Q8HR IVPB 03/26/17 22:00 03/30/17 13:59 03/28/17 05:30 Midodrine (Pro-Amatine) 10 mg THREE TIMES A DAY GT 03/27/17 09:00 04/26/17 08:59 03/28/17 09:53 Morphine Sulfate (Morphine Sulfate) 2 mg Q6H PRN IVP Moderate Pain (Pain Scale 4-6) 03/26/17 18:30 03/30/17 18:29 Ondansetron HCl (Zofran) 4 mg Q6H PRN IVP Nausea & Vomiting 03/26/17 18:30 04/22/17 18:29 Polyethylene Glycol (Miralax) 17 gm DAILYPRN PRN ORAL Constipation 03/26/17 18:30 04/25/17 18:29 VERITO QUEZADA Mar 28, 2017 11:25
[2017-03-28 12:04] VITALS: BP 111/57
--- NOTE | 2017-03-28 14:57 | Infectious Diseases Prog Note ---
Assessment/Plan Problems: (1) UTI (urinary tract infection) Assessment & Plan: due to Citrobacter freundii and pseudomonas aeruginosa , now on meropenem. will treat for 14 days . (2) Sepsis Assessment & Plan: now improving on meropenem and clindamycin . will treat for two weeks (3) ATN (acute tubular necrosis) Assessment & Plan: improving , suspect due to sepsis, continue hydration, monitor UOP, renal is following (4) Suprapubic catheter Assessment & Plan: continue local care (5) Gross hematuria Assessment & Plan: no evidence of stone or tumor on renal US, only showed cysts , improved . Subjective ROS Limited/Unobtainable: Yes Allergies: Coded Allergies: No Known Allergies (Verified , 09/26/12) Subjective unresponsive, lying in bed. afebrile Objective Vital Signs Last 24 Hour Vital Signs Date Time Temp Pulse Resp B/P (MAP) Pulse Ox O2 Delivery O2 Flow Rate FiO2 03/28/17 12:30 85 03/28/17 12:04 97.5 87 30 111/57 97 Nasal Cannula 3.0 03/28/17 08:00 99.0 99 30 122/71 99 Nasal Cannula 3.0 03/28/17 08:00 93 03/28/17 04:00 98.2 75 21 140/72 96 Nasal Cannula 3.0 03/28/17 03:36 101 03/28/17 00:00 98.0 87 19 105/59 98 Nasal Cannula 3.0 03/28/17 00:00 87 03/27/17 20:30 79 03/27/17 20:00 98.0 84 20 110/62 98 Nasal Cannula 3.0 03/27/17 20:00 98 Nasal Cannula 3.0 03/27/17 20:00 Nasal Cannula 3.0 32 03/27/17 16:00 98.2 85 18 106/68 98 Nasal Cannula 3.0 03/27/17 16:00 88 Height (Feet): 5 Height (Inches): 5.00 Weight (Pounds): 155 General Appearance: WD/WN, no acute distress, cachetic HEENT: normocephalic, atraumatic, anicteric, mucous membranes moist Respiratory/Chest: chest wall non-tender, lungs clear, normal breath sounds, no respiratory distress, no accessory muscle use Cardiovascular: normal peripheral pulses, normal rate, regular rhythm, no gallop/murmur, no JVD Abdomen: normal bowel sounds, soft, non tender, no organomegaly, non distended , no mass, no scars Extremities: no cyanosis, no clubbing Skin: no rash, no lesions Lymphatic: no neck adenopathy, no groin adenopathy Microbiology Date/Time Source Procedure Growth Status 03/28/17 05:00 Stool Clostridium difficile Toxin Assay - Final Complete Laboratory Tests Test 03/28/17 06:00 White Blood Count 19.4 K/UL (4.8-10.8) H Red Blood Count 3.84 M/UL (4.70-6.10) L Hemoglobin 11.9 G/DL (14.2-18.0) L Hematocrit 34.0 % (42.0-52.0) L Mean Corpuscular Volume 89 FL (80-99) Mean Corpuscular Hemoglobin 30.9 PG (27.0-31.0) Mean Corpuscular Hemoglobin Concent 34.9 G/DL (32.0-36.0) Red Cell Distribution Width 16.1 % (11.6-14.8) H Platelet Count 79 K/UL (150-450) L Mean Platelet Volume 13.6 FL (6.5-10.1) H Neutrophils (%) (Auto) % (45.0-75.0) Lymphocytes (%) (Auto) % (20.0-45.0) Monocytes (%) (Auto) % (1.0-10.0) Eosinophils (%) (Auto) % (0.0-3.0) Basophils (%) (Auto) % (0.0-2.0) Differential Total Cells Counted 100 Neutrophils % (Manual) 75 % (45-75) Lymphocytes % (Manual) 7 % (20-45) L Monocytes % (Manual) 5 % (1-10) Eosinophils % (Manual) 4 % (0-3) H Basophils % (Manual) 0 % (0-2) Band Neutrophils 9 % (0-8) H Platelet Estimate Decreased L Platelet Morphology Normal Hypochromasia 1+ Anisocytosis 1+ Sodium Level 149 mEQ/L (135-145) H Potassium Level 4.0 mEQ/L (3.4-4.9) Chloride Level 117 mEQ/L (98-107) H Carbon Dioxide Level 22 mEQ/L (20-30) Anion Gap 10 (5-15) Blood Urea Nitrogen 56 mg/dL (7-23) H Creatinine 1.3 mg/dL (0.7-1.2) H Estimat Glomerular Filtration Rate mL/min (>60) Glucose Level 175 mg/dL (74-106) #H Calcium Level 7.8 mg/dL (8.6-10.2) L Total Bilirubin 0.7 mg/dL (0.0-1.2) Aspartate Amino Transf (AST/SGOT) 35 U/L (5-40) Alanine Aminotransferase (ALT/SGPT) 121 U/L (3-41) H Alkaline Phosphatase 318 U/L (40-129) H Total Protein 4.7 g/dL (6.6-8.7) L Albumin 2.1 g/dL (3.5-5.2) L Globulin 2.6 g/dL Albumin/Globulin Ratio 0.8 (1.0-2.7) L Current Medications Medications (Trade) Dose Ordered Sig/Matt Route PRN Reason Start Time Stop Time Status Last Admin Dose Admin Acetaminophen (Tylenol) 650 mg Q4H PRN ORAL Mild Pain (Pain Scale 1-3) 03/26/17 18:00 04/22/17 17:59 Acetaminophen (Tylenol) 650 mg Q4H PRN ORAL T>100.5 03/26/17 18:15 04/22/17 10:14 Chlorhexidine Gluconate (Mari-Hex 2%) 1 applic QHS TOPIC 03/27/17 21:00 04/22/17 20:59 03/27/17 20:20 Clindamycin HCl/ Dextrose 50 ml @ 100 mls/hr Q8H IV 03/27/17 02:00 04/03/17 01:59 03/28/17 09:53 Clonidine HCl (Catapres) 0.1 mg Q4H PRN ORAL SBP > 160 mmHg 03/26/17 18:00 04/22/17 17:59 Dextrose 1,000 ml @ 75 mls/hr [id number] IV 03/28/17 12:00 04/27/17 11:59 03/28/17 12:14 Lansoprazole (Prevacid) 30 mg DAILY ORAL 03/27/17 09:00 04/23/17 08:59 03/28/17 09:53 Lorazepam (Ativan 2mg/ml 1ml) 0.5 mg Q4H PRN IV For Anxiety 03/26/17 18:15 03/30/17 10:14 Meropenem 1 gm/ Sodium Chloride 110 ml @ 220 mls/hr Q8HR IVPB 03/26/17 22:00 03/30/17 13:59 03/28/17 13:35 Midodrine (Pro-Amatine) 10 mg THREE TIMES A DAY GT 03/27/17 09:00 04/26/17 08:59 03/28/17 13:34 Morphine Sulfate (Morphine Sulfate) 2 mg Q6H PRN IVP Moderate Pain (Pain Scale 4-6) 03/26/17 18:30 03/30/17 18:29 Ondansetron HCl (Zofran) 4 mg Q6H PRN IVP Nausea & Vomiting 03/26/17 18:30 04/22/17 18:29 Polyethylene Glycol (Miralax) 17 gm DAILYPRN PRN ORAL Constipation 03/26/17 18:30 04/25/17 18:29 Jose Juarez M.D. Mar 28, 2017 14:57
[2017-03-28 16:00] VITALS: BP 135/69
[2017-03-28 20:00] VITALS: BP 117/69
[2017-03-28] MEDS: Dyna-Hex 2% Top Sol 8oz TOPIC SCH (21:48)
[2017-03-29] VITALS: BP 114/64
[2017-03-29] MEDS: Clindamycin 600mg 50 ML IV SCH ×2 (02:00→11:10)
[2017-03-29 04:00] VITALS: BP 118/75
[2017-03-29] MEDS: Meropenem 1 GM in NS 110 ML IVPB SCH ×3 (05:47→22:00)
[2017-03-29 06:21] LABS: MEAN CORPUSCULAR HEMOGLOBIN 29.4 PG (27.0-31.0); MEAN CORPUSCULAR HGB CONC 32.7 G/DL (32.0-36.0); MEAN CORPUSCULAR VOLUME 90 FL (80-99); MEAN PLATELET VOLUME 13.7 FL (6.5-10.1); PLATELET COUNT 99 K/UL (150-450); RED BLOOD COUNT 4.03 M/UL (4.70-6.10); RED CELL DISTRIBUTION WIDTH 16.5 % (11.6-14.8); WHITE BLOOD COUNT 16.5 K/UL (4.8-10.8)
[2017-03-29 07:16] LABS: ALANINE AMINOTRANSFERASE 95 U/L (3-41); ALBUMIN/GLOBULIN RATIO 0.7 (1.0-2.7); ANION GAP 9 (5-15); ASPARTATE AMINO TRANSFERASE 29 U/L (5-40); CALCIUM 8.2 mg/dL (8.6-10.2); CARBON DIOXIDE 25 mEQ/L (20-30); CHLORIDE 111 mEQ/L (98-107); CRP QUANT 3.9 mg/dL (< 0.5); HEMOLYSIS 7; MAGNESIUM 1.7 mg/dL (1.7-2.5); PHOSPHORUS 2.6 mg/dL (2.5-4.8); POTASSIUM 3.8 mEQ/L (3.4-4.9); SODIUM 145 mEQ/L (135-145); TOTAL PROTEIN 5.1 g/dL (6.6-8.7)
--- NOTE | 2017-03-29 07:32 | General Progress Note ---
Assessment/Plan Problem List: (1) Anemia ICD Codes: D64.9 - Anemia, unspecified SNOMED: 378915449 (2) G tube feedings ICD Codes: Z93.1 - Gastrostomy status SNOMED: 776134834, 797907564 (3) Elevated LFTs ICD Codes: R79.89 - Other specified abnormal findings of blood chemistry SNOMED: 687364423 (4) Prostate cancer ICD Codes: C61 - Malignant neoplasm of prostate SNOMED: 246289689 (5) Dysphagia ICD Codes: R13.10 - Dysphagia SNOMED: 79504513 (6) Dementia ICD Codes: F03.90 - Unspecified dementia without behavioral disturbance SNOMED: 22683817 (7) COPD (chronic obstructive pulmonary disease) ICD Codes: J44.9 - Chronic obstructive pulmonary disease, unspecified SNOMED: 89136057 Assessment/Plan GTF monitor labs stool for C.diff>>> negative fu LFTS>>> improving Subjective ROS Limited/Unobtainable: No Allergies: Coded Allergies: No Known Allergies (Verified , 09/26/12) Objective Last 24 Hour Vital Signs Date Time Temp Pulse Resp B/P (MAP) Pulse Ox O2 Delivery O2 Flow Rate FiO2 03/29/17 04:00 97.0 87 20 118/75 100 Nasal Cannula 3.0 03/29/17 03:44 88 03/29/17 00:00 97.5 86 20 114/64 100 Nasal Cannula 3.0 03/28/17 20:00 97.9 83 18 117/69 97 Nasal Cannula 3.0 03/28/17 20:00 83 03/28/17 19:30 97 Nasal Cannula 3.0 32 03/28/17 19:30 Nasal Cannula 3.0 32 03/28/17 16:00 97.5 88 18 135/69 97 Nasal Cannula 3.0 03/28/17 16:00 86 03/28/17 12:30 85 03/28/17 12:04 97.5 87 30 111/57 97 Nasal Cannula 3.0 03/28/17 08:00 99.0 99 30 122/71 99 Nasal Cannula 3.0 03/28/17 08:00 93 Laboratory Tests 03/29/17 05:30: White Blood Count 16.5H, Red Blood Count 4.03L, Hemoglobin 11.8L, Hematocrit 36.2L, Mean Corpuscular Volume 90, Mean Corpuscular Hemoglobin 29.4, Mean Corpuscular Hemoglobin Concent 32.7, Red Cell Distribution Width 16.5H, Platelet Count 99L, Mean Platelet Volume 13.7H, Neutrophils (%) (Auto) , Lymphocytes (%) (Auto) , Monocytes (%) (Auto) , Eosinophils (%) (Auto) , Basophils (%) (Auto) , Neutrophils % (Manual) [Pending], Lymphocytes % (Manual) [Pending], Platelet Estimate [Pending], Platelet Morphology [Pending], Sodium Level 145, Potassium Level 3.8, Chloride Level 111H, Carbon Dioxide Level 25, Anion Gap 9, Blood Urea Nitrogen 50H, Creatinine 1.0, Estimat Glomerular Filtration Rate , Glucose Level 163H, Uric Acid 5.0, Calcium Level 8.2L, Phosphorus Level 2.6, Magnesium Level 1.7, Total Bilirubin 0.6, Aspartate Amino Transf (AST/SGOT) 29, Alanine Aminotransferase (ALT/SGPT) 95H, Alkaline Phosphatase 262H, C-Reactive Protein, Quantitative 3.9H, Pro-B-Type Natriuretic Peptide [Pending], Total Protein 5.1L, Albumin 2.2L, Globulin 2.9, Albumin/ Globulin Ratio 0.7L Height (Feet): 5 Height (Inches): 5.00 Weight (Pounds): 178 General Appearance: no apparent distress EENT: normal ENT inspection Neck: supple Cardiovascular: normal rate Respiratory/Chest: decreased breath sounds Abdomen: normal bowel sounds, non tender, soft Extremities: non-tender DAVID ESTRADA Mar 29, 2017 07:32
[2017-03-29 07:48] LABS: ANISOCYTOSIS 1+; BAND NEUTROPHILS % (MANUAL) 1 % (0-8); BASOPHILS % (MANUAL) 0 % (0-2); EOSINOPHILS % (MANUAL) 6 % (0-3); LYMPHOCYTES % (MANUAL) 9 % (20-45); NEUTROPHILS % (MANUAL) 68 % (45-75); PLATELET ESTIMATE DECREASED; PLATELET MORPHOLOGY NORMAL; TOTAL CELLS COUNTED 100
[2017-03-29 08:10] VITALS: BP 103/77
--- NOTE | 2017-03-29 09:25 | General Progress Note ---
Assessment/Plan Status: stable Status Narrative Renal parameters improved Assessment/Plan - Acute Renal Failure- Cr lower - Dislodged gastrostomy tube - UTI (urinary tract infection), with severe leukocytosis, high Lactic acid - h/o Seizure - Dementia - Sepsis, WBCs lowering - COPD (chronic obstructive pulmonary disease) - Cachexia - High Troponin Plan: change IV to D5 Keep BP above 100 Avoid Nephrotoxics Monitor renal parameters Per consultants Subjective ROS Limited/Unobtainable: Yes Allergies: Coded Allergies: No Known Allergies (Verified , 09/26/12) Objective Last 24 Hour Vital Signs Date Time Temp Pulse Resp B/P (MAP) Pulse Ox O2 Delivery O2 Flow Rate FiO2 03/29/17 08:10 99.1 113 20 103/77 97 Nasal Cannula 3.0 03/29/17 08:00 106 03/29/17 04:00 97.0 87 20 118/75 100 Nasal Cannula 3.0 03/29/17 03:44 88 03/29/17 00:00 97.5 86 20 114/64 100 Nasal Cannula 3.0 03/28/17 20:00 97.9 83 18 117/69 97 Nasal Cannula 3.0 03/28/17 20:00 83 03/28/17 19:30 97 Nasal Cannula 3.0 32 03/28/17 19:30 Nasal Cannula 3.0 32 03/28/17 16:00 97.5 88 18 135/69 97 Nasal Cannula 3.0 03/28/17 16:00 86 03/28/17 12:30 85 03/28/17 12:04 97.5 87 30 111/57 97 Nasal Cannula 3.0 Laboratory Tests 03/29/17 05:30: White Blood Count 16.5H, Red Blood Count 4.03L, Hemoglobin 11.8L, Hematocrit 36.2L, Mean Corpuscular Volume 90, Mean Corpuscular Hemoglobin 29.4, Mean Corpuscular Hemoglobin Concent 32.7, Red Cell Distribution Width 16.5H, Platelet Count 99L, Mean Platelet Volume 13.7H, Neutrophils (%) (Auto) , Lymphocytes (%) (Auto) , Monocytes (%) (Auto) , Eosinophils (%) (Auto) , Basophils (%) (Auto) , Differential Total Cells Counted 100, Neutrophils % ( Manual) 68, Lymphocytes % (Manual) 9L, Monocytes % (Manual) 16H, Eosinophils % ( Manual) 6H, Basophils % (Manual) 0, Band Neutrophils 1, Platelet Estimate DecreasedL, Platelet Morphology Normal, Anisocytosis 1+, Sodium Level 145, Potassium Level 3.8, Chloride Level 111H, Carbon Dioxide Level 25, Anion Gap 9, Blood Urea Nitrogen 50H, Creatinine 1.0, Estimat Glomerular Filtration Rate , Glucose Level 163H, Uric Acid 5.0, Calcium Level 8.2L, Phosphorus Level 2.6, Magnesium Level 1.7, Total Bilirubin 0.6, Aspartate Amino Transf (AST/SGOT) 29, Alanine Aminotransferase (ALT/SGPT) 95H, Alkaline Phosphatase 262H, C-Reactive Protein, Quantitative 3.9H, Pro-B-Type Natriuretic Peptide 8719H, Total Protein 5.1L, Albumin 2.2L, Globulin 2.9, Albumin/Globulin Ratio 0.7L Height (Feet): 5 Height (Inches): 5.00 Weight (Pounds): 178 General Appearance: no apparent distress Cardiovascular: tachycardia Respiratory/Chest: decreased breath sounds Abdomen: soft Objective PE unchanged FAITH SEARS Mar 29, 2017 09:25
[2017-03-29] MEDS: Midodrine 10mg tab GT SCH ×3 (11:10→18:23)
[2017-03-29 12:00] VITALS: BP 119/66
--- NOTE | 2017-03-29 12:27 | General Progress Note ---
Assessment/Plan Problem List: (1) Dehydration ICD Codes: E86.0 - Dehydration SNOMED: 08692735 (2) Dementia ICD Codes: F03.90 - Unspecified dementia without behavioral disturbance SNOMED: 71029712 (3) Seizure ICD Codes: R56.9 - Unspecified convulsions SNOMED: 73446138 (4) Septic shock ICD Codes: A41.9 - Sepsis, unspecified organism; R65.21 - Severe sepsis with septic shock SNOMED: 84656834 (5) UTI (urinary tract infection) ICD Codes: N39.0 - Urinary tract infection, site not specified SNOMED: 97163416 Qualifiers: Qualified Codes: N30.01 - Acute cystitis with hematuria Status: progressing Assessment/Plan severe leukocytosis is improving septic shock is improving afebrile vitals stable no wheezing clinically improving off icu Subjective ROS Limited/Unobtainable: Yes Allergies: Coded Allergies: No Known Allergies (Verified , 09/26/12) Objective Last 24 Hour Vital Signs Date Time Temp Pulse Resp B/P (MAP) Pulse Ox O2 Delivery O2 Flow Rate FiO2 03/29/17 12:00 98.8 97 18 119/66 96 Nasal Cannula 3.0 03/29/17 08:10 99.1 113 20 103/77 97 Nasal Cannula 3.0 03/29/17 08:00 106 03/29/17 06:32 97 Nasal Cannula 3.0 03/29/17 06:32 Nasal Cannula 3.0 03/29/17 04:00 97.0 87 20 118/75 100 Nasal Cannula 3.0 03/29/17 03:44 88 03/29/17 00:00 97.5 86 20 114/64 100 Nasal Cannula 3.0 03/28/17 20:00 97.9 83 18 117/69 97 Nasal Cannula 3.0 03/28/17 20:00 83 03/28/17 19:30 97 Nasal Cannula 3.0 32 03/28/17 19:30 Nasal Cannula 3.0 32 03/28/17 16:00 97.5 88 18 135/69 97 Nasal Cannula 3.0 03/28/17 16:00 86 03/28/17 12:30 85 Intake and Output 03/29/17 03/30/17 19:00 07:00 # Bowel Movements 2 Laboratory Tests 03/29/17 05:30: White Blood Count 16.5H, Red Blood Count 4.03L, Hemoglobin 11.8L, Hematocrit 36.2L, Mean Corpuscular Volume 90, Mean Corpuscular Hemoglobin 29.4, Mean Corpuscular Hemoglobin Concent 32.7, Red Cell Distribution Width 16.5H, Platelet Count 99L, Mean Platelet Volume 13.7H, Neutrophils (%) (Auto) , Lymphocytes (%) (Auto) , Monocytes (%) (Auto) , Eosinophils (%) (Auto) , Basophils (%) (Auto) , Differential Total Cells Counted 100, Neutrophils % ( Manual) 68, Lymphocytes % (Manual) 9L, Monocytes % (Manual) 16H, Eosinophils % ( Manual) 6H, Basophils % (Manual) 0, Band Neutrophils 1, Platelet Estimate DecreasedL, Platelet Morphology Normal, Anisocytosis 1+, Sodium Level 145, Potassium Level 3.8, Chloride Level 111H, Carbon Dioxide Level 25, Anion Gap 9, Blood Urea Nitrogen 50H, Creatinine 1.0, Estimat Glomerular Filtration Rate , Glucose Level 163H, Uric Acid 5.0, Calcium Level 8.2L, Phosphorus Level 2.6, Magnesium Level 1.7, Total Bilirubin 0.6, Aspartate Amino Transf (AST/SGOT) 29, Alanine Aminotransferase (ALT/SGPT) 95H, Alkaline Phosphatase 262H, C-Reactive Protein, Quantitative 3.9H, Pro-B-Type Natriuretic Peptide 8719H, Total Protein 5.1L, Albumin 2.2L, Globulin 2.9, Albumin/Globulin Ratio 0.7L Height (Feet): 5 Height (Inches): 5.00 Weight (Pounds): 178 EENT: PERRL/EOMI Neck: supple Cardiovascular: normal rate Respiratory/Chest: lungs clear Abdomen: non tender - Sary Oakes MD Mar 29, 2017 12:27
--- NOTE | 2017-03-29 13:18 | Pulmonology Progress Note ---
Assessment/Plan Assessment/Plan ASSESSMENT septic shock with MOF acute respiratory failure requiring NRB -resolved sepsis UTI with Pseudomonas and Citrobacter acute renal failure, possible ATN DM elevated troponin anemia Alzheimer dementia HTN COPD gross hematuria urinary retention ( due to clots from hematuria) s/p suprapubic catheter placement prostate Ca elevated LFT elevated CEA sacral decub st 3 POA, L heel un-stageable decub, POA PLAN OF CARE MOHAMUD BP better , continue Midodrine abx ID follows urine cx + Pseudomonas, Citrobacter, blood cx negative, stool C dif negative CXR O2 to keep sat above 92%, on NC sat stable pulmonary toilet prn venous Duplex BLE negative renal US with normal echogenicity bilateral, multiple cysts R kidney monitor renal parameters, lytes avoid nephrotoxic urology eval and input appreciated s/p suprapubic catheter placement due to urinary retention 2 to clots from hematuria hx of prostate Ca with elevated PSA -149.3 elevated CEA -26 GI follows strict aspiration precautions, GT feeding, monitor tolerance cardio follows minimally elevated troponin likely 2 to combination of OSCAR and hypotension lipid panel with elevated TG trend LFT heme/onco follows bone study survey pending monitor HH, transfuse prn pain management bowel regimen GI prophylaxis recommend hospice eval case discussed and evaluated by supervising physician Subjective Allergies: Coded Allergies: No Known Allergies (Verified , 09/26/12) Subjective leukocytosis trending down,afebrile, on O2 via NC, pulse oximetry stable no signs of respirably distress Objective Last 24 Hour Vital Signs Date Time Temp Pulse Resp B/P (MAP) Pulse Ox O2 Delivery O2 Flow Rate FiO2 03/29/17 12:00 98.8 97 18 119/66 96 Nasal Cannula 3.0 03/29/17 08:10 99.1 113 20 103/77 97 Nasal Cannula 3.0 03/29/17 08:00 106 03/29/17 06:32 97 Nasal Cannula 3.0 03/29/17 06:32 Nasal Cannula 3.0 03/29/17 04:00 97.0 87 20 118/75 100 Nasal Cannula 3.0 03/29/17 03:44 88 03/29/17 00:00 97.5 86 20 114/64 100 Nasal Cannula 3.0 03/28/17 20:00 97.9 83 18 117/69 97 Nasal Cannula 3.0 03/28/17 20:00 83 9/3/17 19:30 97 Nasal Cannula 3.0 32 03/28/17 19:30 Nasal Cannula 3.0 32 03/28/17 16:00 97.5 88 18 135/69 97 Nasal Cannula 3.0 03/28/17 16:00 86 Intake and Output 03/29/17 03/30/17 19:00 07:00 # Bowel Movements 2 General Appearance: no acute distress, other - bedridden, poorly responsive male HEENT: normocephalic, atraumatic, anicteric, other - O2 via NC Respiratory/Chest: chest wall non-tender, lungs clear, no respiratory distress , no accessory muscle use Cardiovascular: regular rhythm - -ST on tele , tachycardia - 100-110 Abdomen: normal bowel sounds, soft, non tender Extremities: no edema, pedal pulses normal, other - SCD on Neurologic/Psychiatric: abnormal gait, other - bedridden, poorly responsive Musculoskeletal: atrophy - BLE Microbiology Date/Time Source Procedure Growth Status 03/28/17 05:00 Stool Clostridium difficile Toxin Assay - Final Complete Laboratory Tests 03/29/17 05:30: White Blood Count 16.5H, Red Blood Count 4.03L, Hemoglobin 11.8L, Hematocrit 36.2L, Mean Corpuscular Volume 90, Mean Corpuscular Hemoglobin 29.4, Mean Corpuscular Hemoglobin Concent 32.7, Red Cell Distribution Width 16.5H, Platelet Count 99L, Mean Platelet Volume 13.7H, Neutrophils (%) (Auto) , Lymphocytes (%) (Auto) , Monocytes (%) (Auto) , Eosinophils (%) (Auto) , Basophils (%) (Auto) , Differential Total Cells Counted 100, Neutrophils % ( Manual) 68, Lymphocytes % (Manual) 9L, Monocytes % (Manual) 16H, Eosinophils % ( Manual) 6H, Basophils % (Manual) 0, Band Neutrophils 1, Platelet Estimate DecreasedL, Platelet Morphology Normal, Anisocytosis 1+, Sodium Level 145, Potassium Level 3.8, Chloride Level 111H, Carbon Dioxide Level 25, Anion Gap 9, Blood Urea Nitrogen 50H, Creatinine 1.0, Estimat Glomerular Filtration Rate , Glucose Level 163H, Uric Acid 5.0, Calcium Level 8.2L, Phosphorus Level 2.6, Magnesium Level 1.7, Total Bilirubin 0.6, Aspartate Amino Transf (AST/SGOT) 29, Alanine Aminotransferase (ALT/SGPT) 95H, Alkaline Phosphatase 262H, C-Reactive Protein, Quantitative 3.9H, Pro-B-Type Natriuretic Peptide 8719H, Total Protein 5.1L, Albumin 2.2L, Globulin 2.9, Albumin/Globulin Ratio 0.7L Current Medications Medications (Trade) Dose Ordered Sig/Matt Route PRN Reason Start Time Stop Time Status Last Admin Dose Admin Acetaminophen (Tylenol) 650 mg Q4H PRN ORAL Mild Pain (Pain Scale 1-3) 03/26/17 18:00 04/22/17 17:59 Acetaminophen (Tylenol) 650 mg Q4H PRN ORAL T>100.5 03/26/17 18:15 04/22/17 10:14 Chlorhexidine Gluconate (Mari-Hex 2%) 1 applic QHS TOPIC 03/27/17 21:00 04/22/17 20:59 03/28/17 21:48 Clindamycin HCl/ Dextrose 50 ml @ 100 mls/hr Q8H IV 03/27/17 02:00 04/03/17 01:59 03/29/17 11:10 Clonidine HCl (Catapres) 0.1 mg Q4H PRN ORAL SBP > 160 mmHg 03/26/17 18:00 04/22/17 17:59 Lansoprazole (Prevacid) 30 mg DAILY ORAL 03/27/17 09:00 04/23/17 08:59 03/29/17 11:10 Lorazepam (Ativan 2mg/ml 1ml) 0.5 mg Q4H PRN IV For Anxiety 03/26/17 18:15 03/30/17 10:14 Meropenem 1 gm/ Sodium Chloride 110 ml @ 220 mls/hr Q8HR IVPB 03/26/17 22:00 03/30/17 13:59 03/29/17 05:47 Midodrine (Pro-Amatine) 10 mg THREE TIMES A DAY GT 03/27/17 09:00 04/26/17 08:59 03/29/17 11:10 Morphine Sulfate (Morphine Sulfate) 2 mg Q6H PRN IVP Moderate Pain (Pain Scale 4-6) 03/26/17 18:30 03/30/17 18:29 Ondansetron HCl (Zofran) 4 mg Q6H PRN IVP Nausea & Vomiting 03/26/17 18:30 04/22/17 18:29 Polyethylene Glycol (Miralax) 17 gm DAILYPRN PRN ORAL Constipation 03/26/17 18:30 04/25/17 18:29 Mani (Deniceshayla)Jess NP Mar 29, 2017 13:18
[2017-03-29] MEDS ORDERED: DuoNeb 0.5-3(2.5)mg/3ml neb HHN PRN (15:00)
[2017-03-29 16:00] VITALS: BP 96/50
--- NOTE | 2017-03-29 16:30 | Infectious Diseases Prog Note ---
Assessment/Plan Problems: (1) UTI (urinary tract infection) Assessment & Plan: due to Citrobacter freundii and pseudomonas aeruginosa , now improving on meropenem. will treat for 14 days . (2) Sepsis Assessment & Plan: improving on meropenem and clindamycin . will treat for two weeks with meropenem, stop clindamycin (3) ATN (acute tubular necrosis) Assessment & Plan: improving , suspect due to sepsis, continue hydration, monitor UOP, renal is following (4) Suprapubic catheter Assessment & Plan: continue local care (5) Gross hematuria Assessment & Plan: no evidence of stone or tumor on renal US, only showed cysts , improved . Subjective ROS Limited/Unobtainable: Yes Allergies: Coded Allergies: No Known Allergies (Verified , 09/26/12) Subjective unresponsive, lying in bed. afebrile Objective Vital Signs Last 24 Hour Vital Signs Date Time Temp Pulse Resp B/P (MAP) Pulse Ox O2 Delivery O2 Flow Rate FiO2 03/29/17 12:00 101 03/29/17 12:00 98.8 97 18 119/66 96 Nasal Cannula 3.0 03/29/17 08:10 99.1 113 20 103/77 97 Nasal Cannula 3.0 03/29/17 08:00 106 03/29/17 06:32 97 Nasal Cannula 3.0 03/29/17 06:32 Nasal Cannula 3.0 03/29/17 04:00 97.0 87 20 118/75 100 Nasal Cannula 3.0 03/29/17 03:44 88 03/29/17 00:00 97.5 86 20 114/64 100 Nasal Cannula 3.0 03/28/17 20:00 97.9 83 18 117/69 97 Nasal Cannula 3.0 03/28/17 20:00 83 03/28/17 19:30 97 Nasal Cannula 3.0 32 03/28/17 19:30 Nasal Cannula 3.0 32 Height (Feet): 5 Height (Inches): 5.00 Weight (Pounds): 178 General Appearance: WD/WN, no acute distress, cachetic HEENT: normocephalic, atraumatic, anicteric, mucous membranes moist Respiratory/Chest: chest wall non-tender, no respiratory distress, no accessory muscle use, decreased breath sounds, crackles/rales Cardiovascular: normal peripheral pulses, normal rate, regular rhythm, no gallop/murmur, no JVD Abdomen: normal bowel sounds, soft, non tender, no organomegaly, non distended , no mass, no scars Extremities: no cyanosis, no clubbing Skin: no rash, no lesions, no ulcers Microbiology Date/Time Source Procedure Growth Status 03/28/17 05:00 Stool Clostridium difficile Toxin Assay - Final Complete Laboratory Tests Test 03/29/17 05:30 White Blood Count 16.5 K/UL (4.8-10.8) H Red Blood Count 4.03 M/UL (4.70-6.10) L Hemoglobin 11.8 G/DL (14.2-18.0) L Hematocrit 36.2 % (42.0-52.0) L Mean Corpuscular Volume 90 FL (80-99) Mean Corpuscular Hemoglobin 29.4 PG (27.0-31.0) Mean Corpuscular Hemoglobin Concent 32.7 G/DL (32.0-36.0) Red Cell Distribution Width 16.5 % (11.6-14.8) H Platelet Count 99 K/UL (150-450) L Mean Platelet Volume 13.7 FL (6.5-10.1) H Neutrophils (%) (Auto) % (45.0-75.0) Lymphocytes (%) (Auto) % (20.0-45.0) Monocytes (%) (Auto) % (1.0-10.0) Eosinophils (%) (Auto) % (0.0-3.0) Basophils (%) (Auto) % (0.0-2.0) Differential Total Cells Counted 100 Neutrophils % (Manual) 68 % (45-75) Lymphocytes % (Manual) 9 % (20-45) L Monocytes % (Manual) 16 % (1-10) H Eosinophils % (Manual) 6 % (0-3) H Basophils % (Manual) 0 % (0-2) Band Neutrophils 1 % (0-8) Platelet Estimate Decreased L Platelet Morphology Normal Anisocytosis 1+ Sodium Level 145 mEQ/L (135-145) Potassium Level 3.8 mEQ/L (3.4-4.9) Chloride Level 111 mEQ/L (98-107) H Carbon Dioxide Level 25 mEQ/L (20-30) Anion Gap 9 (5-15) Blood Urea Nitrogen 50 mg/dL (7-23) H Creatinine 1.0 mg/dL (0.7-1.2) Estimat Glomerular Filtration Rate mL/min (>60) Glucose Level 163 mg/dL (74-106) H Uric Acid 5.0 mg/dL (3.0-7.5) Calcium Level 8.2 mg/dL (8.6-10.2) L Phosphorus Level 2.6 mg/dL (2.5-4.8) Magnesium Level 1.7 mg/dL (1.7-2.5) Total Bilirubin 0.6 mg/dL (0.0-1.2) Aspartate Amino Transf (AST/SGOT) 29 U/L (5-40) Alanine Aminotransferase (ALT/SGPT) 95 U/L (3-41) H Alkaline Phosphatase 262 U/L (40-129) H C-Reactive Protein, Quantitative 3.9 mg/dL (< 0.5) H Pro-B-Type Natriuretic Peptide 8719 pg/mL (0-450) H Total Protein 5.1 g/dL (6.6-8.7) L Albumin 2.2 g/dL (3.5-5.2) L Globulin 2.9 g/dL Albumin/Globulin Ratio 0.7 (1.0-2.7) L Current Medications Medications (Trade) Dose Ordered Sig/Matt Route PRN Reason Start Time Stop Time Status Last Admin Dose Admin Acetaminophen (Tylenol) 650 mg Q4H PRN ORAL Mild Pain (Pain Scale 1-3) 03/26/17 18:00 04/22/17 17:59 Acetaminophen (Tylenol) 650 mg Q4H PRN ORAL T>100.5 03/26/17 18:15 04/22/17 10:14 Albuterol/ Ipratropium (DuoNeb 0.5-3(2.5)mg/3ml) 3 ml Q4H PRN HHN Shortness of Breath 03/29/17 15:00 04/03/17 14:59 Chlorhexidine Gluconate (Mari-Hex 2%) 1 applic QHS TOPIC 03/27/17 21:00 04/22/17 20:59 03/28/17 21:48 Clindamycin HCl/ Dextrose 50 ml @ 100 mls/hr Q8H IV 03/27/17 02:00 04/03/17 01:59 03/29/17 11:10 Clonidine HCl (Catapres) 0.1 mg Q4H PRN ORAL SBP > 160 mmHg 03/26/17 18:00 04/22/17 17:59 Lansoprazole (Prevacid) 30 mg DAILY ORAL 03/27/17 09:00 04/23/17 08:59 03/29/17 11:10 Lorazepam (Ativan 2mg/ml 1ml) 0.5 mg Q4H PRN IV For Anxiety 03/26/17 18:15 03/30/17 10:14 Meropenem 1 gm/ Sodium Chloride 110 ml @ 220 mls/hr Q8HR IVPB 03/26/17 22:00 04/03/17 21:59 03/29/17 13:34 Midodrine (Pro-Amatine) 10 mg THREE TIMES A DAY GT 03/27/17 09:00 04/26/17 08:59 03/29/17 13:34 Morphine Sulfate (Morphine Sulfate) 2 mg Q6H PRN IVP Moderate Pain (Pain Scale 4-6) 03/26/17 18:30 03/30/17 18:29 Ondansetron HCl (Zofran) 4 mg Q6H PRN IVP Nausea & Vomiting 03/26/17 18:30 04/22/17 18:29 Polyethylene Glycol (Miralax) 17 gm DAILYPRN PRN ORAL Constipation 03/26/17 18:30 04/25/17 18:29 Jose Juarez M.D. Mar 29, 2017 16:30
[2017-03-29 20:00] VITALS: BP 122/68
[2017-03-29] MEDS: Dyna-Hex 2% Top Sol 8oz TOPIC SCH (21:26)
--- NOTE | 2017-03-29 23:47 | Cardiology Progress Note ---
Assessment/Plan Assessment/Plan 1. Septic shock with multi-organ failure, improving, renal failure resolved, liver failure on improvement, liver enzymes downtrending, continue hydration. 2. Normal LV systolic function with no wall motion abnormalities. 3. Elevated troponin level, possibly combination of OSCAR and hypotension, cannot exclude NSTEMI (demand-ischemia), not a suitable candidate for ischemic work up given underlying mental status, 12 lead ECG shows no STT changes, Echo with no wall motion abnormalities, medical therapy. Subjective Subjective Sinus tachycardia at 105. Non-verbal Objective Last 24 Hour Vital Signs Date Time Temp Pulse Resp B/P (MAP) Pulse Ox O2 Delivery O2 Flow Rate FiO2 03/29/17 20:02 105 03/29/17 20:00 98.6 106 20 122/68 94 Nasal Cannula 3.0 03/29/17 19:09 95 Nasal Cannula 3.0 32 03/29/17 19:09 Nasal Cannula 3.0 32 03/29/17 16:00 103 03/29/17 16:00 98.0 92 20 96/50 94 Nasal Cannula 3.0 03/29/17 12:00 101 03/29/17 12:00 98.8 97 18 119/66 96 Nasal Cannula 3.0 03/29/17 08:10 99.1 113 20 103/77 97 Nasal Cannula 3.0 03/29/17 08:00 106 03/29/17 06:32 97 Nasal Cannula 3.0 03/29/17 06:32 Nasal Cannula 3.0 03/29/17 04:00 97.0 87 20 118/75 100 Nasal Cannula 3.0 03/29/17 03:44 88 03/29/17 00:00 97.5 86 20 114/64 100 Nasal Cannula 3.0 Intake and Output 03/29/17 03/30/17 19:00 07:00 Intake Total 1175 ml 110 ml Output Total 1250 ml Balance -75 ml 110 ml Intake Free Water 300 ml IV Total 160 ml 110 ml Tube Feeding 715 ml Output Urine Total 1250 ml # Bowel Movements 4 1 2D Echo: LVEF 55%, Grade I LVDD Laboratory Tests Test 03/29/17 05:30 White Blood Count 16.5 K/UL (4.8-10.8) H Red Blood Count 4.03 M/UL (4.70-6.10) L Hemoglobin 11.8 G/DL (14.2-18.0) L Hematocrit 36.2 % (42.0-52.0) L Mean Corpuscular Volume 90 FL (80-99) Mean Corpuscular Hemoglobin 29.4 PG (27.0-31.0) Mean Corpuscular Hemoglobin Concent 32.7 G/DL (32.0-36.0) Red Cell Distribution Width 16.5 % (11.6-14.8) H Platelet Count 99 K/UL (150-450) L Mean Platelet Volume 13.7 FL (6.5-10.1) H Neutrophils (%) (Auto) % (45.0-75.0) Lymphocytes (%) (Auto) % (20.0-45.0) Monocytes (%) (Auto) % (1.0-10.0) Eosinophils (%) (Auto) % (0.0-3.0) Basophils (%) (Auto) % (0.0-2.0) Differential Total Cells Counted 100 Neutrophils % (Manual) 68 % (45-75) Lymphocytes % (Manual) 9 % (20-45) L Monocytes % (Manual) 16 % (1-10) H Eosinophils % (Manual) 6 % (0-3) H Basophils % (Manual) 0 % (0-2) Band Neutrophils 1 % (0-8) Platelet Estimate Decreased L Platelet Morphology Normal Anisocytosis 1+ Sodium Level 145 mEQ/L (135-145) Potassium Level 3.8 mEQ/L (3.4-4.9) Chloride Level 111 mEQ/L (98-107) H Carbon Dioxide Level 25 mEQ/L (20-30) Anion Gap 9 (5-15) Blood Urea Nitrogen 50 mg/dL (7-23) H Creatinine 1.0 mg/dL (0.7-1.2) Estimat Glomerular Filtration Rate mL/min (>60) Glucose Level 163 mg/dL (74-106) H Uric Acid 5.0 mg/dL (3.0-7.5) Calcium Level 8.2 mg/dL (8.6-10.2) L Phosphorus Level 2.6 mg/dL (2.5-4.8) Magnesium Level 1.7 mg/dL (1.7-2.5) Total Bilirubin 0.6 mg/dL (0.0-1.2) Aspartate Amino Transf (AST/SGOT) 29 U/L (5-40) Alanine Aminotransferase (ALT/SGPT) 95 U/L (3-41) H Alkaline Phosphatase 262 U/L (40-129) H C-Reactive Protein, Quantitative 3.9 mg/dL (< 0.5) H Pro-B-Type Natriuretic Peptide 8719 pg/mL (0-450) H Total Protein 5.1 g/dL (6.6-8.7) L Albumin 2.2 g/dL (3.5-5.2) L Globulin 2.9 g/dL Albumin/Globulin Ratio 0.7 (1.0-2.7) L Microbiology Date/Time Source Procedure Growth Status 03/28/17 05:00 Stool Clostridium difficile Toxin Assay - Final Complete Objective HEENT: normocephalic, atraumatic, PERRL, EOMI, non-verbal Neck: No JVD, no carotid bruit, carotid upstroke 2+ B/L Respiratory: Clear B/L Cardiovascular: regular rate, rhythm, normal S1S2, tachycardic, no murmurs, gallops or rubs. Gastrointestinal: normal inspection, normal bowel sounds, non tender, soft, no guarding, no hernia Musculoskeletal: normal inspection, no edema, clubbing or cyanosis. FRANCISCO SPAIN Mar 29, 2017 23:47
[2017-03-30] VITALS (7 sets, daily range): BP systolic 102–141; BP diastolic 58–99
[2017-03-30 05:10] LABS: BASOPHILS % (AUTO) 0.8 % (0.0-2.0); EOSINOPHILS % (AUTO) 7.9 % (0.0-3.0); LYMPHOCYTES % (AUTO) 11.8 % (20.0-45.0); MEAN CORPUSCULAR HEMOGLOBIN 30.9 PG (27.0-31.0); MEAN CORPUSCULAR HGB CONC 34.3 G/DL (32.0-36.0); MEAN CORPUSCULAR VOLUME 90 FL (80-99); MEAN PLATELET VOLUME 12.4 FL (6.5-10.1); MONOCYTES % (AUTO) 9.9 % (1.0-10.0); NEUTROPHILS % (AUTO) 69.6 % (45.0-75.0); PLATELET COUNT 121 K/UL (150-450); RED BLOOD COUNT 3.65 M/UL (4.70-6.10); RED CELL DISTRIBUTION WIDTH 16.9 % (11.6-14.8); WHITE BLOOD COUNT 16.2 K/UL (4.8-10.8)
[2017-03-30 05:35] LABS: ANION GAP 9 (5-15); CALCIUM 8.4 mg/dL (8.6-10.2); CARBON DIOXIDE 27 mEQ/L (20-30); CHLORIDE 111 mEQ/L (98-107); CREATININE 0.8 mg/dL (0.7-1.2); HEMOLYSIS 1; SODIUM 147 mEQ/L (135-145)
[2017-03-30] MEDS: Meropenem 1 GM in NS 110 ML IVPB SCH ×3 (06:00→20:50)
[2017-03-30] MEDS: Midodrine 10mg tab GT SCH ×4 (08:24→17:02)
--- NOTE | 2017-03-30 10:14 | Pulmonology Progress Note ---
Assessment/Plan Problems: (1) Septic shock (2) ATN (acute tubular necrosis) (3) Suprapubic catheter (4) Gross hematuria (5) Prostate cancer (6) Cachexia (7) COPD (chronic obstructive pulmonary disease) (8) Dementia Assessment/Plan improving respiratory treatment IV abx check electrolytes dvt prophylaxis tolerating feeding med/surg Subjective ROS Limited/Unobtainable: Yes - looks comfortable Constitutional: Reports: no symptoms HEENT: Repors: no symptoms Respiratory: Reports: no symptoms Cardiovascular: Reports: no symptoms Gastrointestinal/Abdominal: Reports: no symptoms Allergies: Coded Allergies: No Known Allergies (Verified , 09/26/12) Objective Last 24 Hour Vital Signs Date Time Temp Pulse Resp B/P (MAP) Pulse Ox O2 Delivery O2 Flow Rate FiO2 03/30/17 09:00 70 03/30/17 08:00 98.1 89 20 123/66 94 Nasal Cannula 3.0 03/30/17 04:30 68 03/30/17 04:00 97.9 91 21 112/71 97 Nasal Cannula 3.0 03/30/17 00:00 98.6 89 21 102/65 100 Nasal Cannula 3.0 03/30/17 00:00 89 03/29/17 20:02 105 03/29/17 20:00 98.6 106 20 122/68 94 Nasal Cannula 3.0 03/29/17 19:09 95 Nasal Cannula 3.0 32 03/29/17 19:09 Nasal Cannula 3.0 32 03/29/17 16:00 103 03/29/17 16:00 98.0 92 20 96/50 94 Nasal Cannula 3.0 03/29/17 12:00 101 03/29/17 12:00 98.8 97 18 119/66 96 Nasal Cannula 3.0 General Appearance: WD/WN HEENT: normocephalic, atraumatic Respiratory/Chest: chest wall non-tender, normal breath sounds Cardiovascular: normal peripheral pulses, normal rate Abdomen: normal bowel sounds, soft, non tender, no organomegaly Genitourinary: normal external genitalia Extremities: no cyanosis Skin: no rash, no lesions, no ulcers 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 Lymphatic: no neck adenopathy Microbiology Date/Time Source Procedure Growth Status 03/28/17 05:00 Stool Clostridium difficile Toxin Assay - Final Complete Laboratory Tests 03/30/17 04:00: White Blood Count 16.2H, Red Blood Count 3.65L, Hemoglobin 11.3L, Hematocrit 32.8L, Mean Corpuscular Volume 90, Mean Corpuscular Hemoglobin 30.9, Mean Corpuscular Hemoglobin Concent 34.3, Red Cell Distribution Width 16.9H, Platelet Count 121L, Mean Platelet Volume 12.4H, Neutrophils (%) (Auto) 69.6, Lymphocytes (%) (Auto) 11.8L, Monocytes (%) (Auto) 9.9, Eosinophils (%) (Auto) 7.9H, Basophils (%) (Auto) 0.8, Sodium Level 147H, Potassium Level 4.0, Chloride Level 111H, Carbon Dioxide Level 27, Anion Gap 9, Blood Urea Nitrogen 42H, Creatinine 0.8, Estimat Glomerular Filtration Rate , Glucose Level 131H, Calcium Level 8.4L Current Medications Medications (Trade) Dose Ordered Sig/Matt Route PRN Reason Start Time Stop Time Status Last Admin Dose Admin Acetaminophen (Tylenol) 650 mg Q4H PRN ORAL Mild Pain (Pain Scale 1-3) 03/26/17 18:00 04/22/17 17:59 Acetaminophen (Tylenol) 650 mg Q4H PRN ORAL T>100.5 03/26/17 18:15 04/22/17 10:14 Albuterol/ Ipratropium (DuoNeb 0.5-3(2.5)mg/3ml) 3 ml Q4H PRN HHN Shortness of Breath 03/29/17 15:00 04/03/17 14:59 Chlorhexidine Gluconate (Mari-Hex 2%) 1 applic QHS TOPIC 03/27/17 21:00 04/22/17 20:59 03/29/17 21:26 Clonidine HCl (Catapres) 0.1 mg Q4H PRN ORAL SBP > 160 mmHg 03/26/17 18:00 04/22/17 17:59 Lansoprazole (Prevacid) 30 mg DAILY ORAL 03/27/17 09:00 04/23/17 08:59 03/30/17 08:24 Lorazepam (Ativan 2mg/ml 1ml) 0.5 mg Q4H PRN IV For Anxiety 03/26/17 18:15 03/30/17 10:14 Meropenem 1 gm/ Sodium Chloride 110 ml @ 220 mls/hr Q8HR IVPB 03/26/17 22:00 04/03/17 21:59 03/30/17 06:00 Midodrine (Pro-Amatine) 10 mg THREE TIMES A DAY GT 03/27/17 09:00 04/26/17 08:59 03/30/17 08:24 Morphine Sulfate (Morphine Sulfate) 2 mg Q6H PRN IVP Moderate Pain (Pain Scale 4-6) 03/26/17 18:30 03/30/17 18:29 Ondansetron HCl (Zofran) 4 mg Q6H PRN IVP Nausea & Vomiting 03/26/17 18:30 04/22/17 18:29 Polyethylene Glycol (Miralax) 17 gm DAILYPRN PRN ORAL Constipation 03/26/17 18:30 04/25/17 18:29 VERITO QUEZADA Mar 30, 2017 10:14
--- NOTE | 2017-03-30 11:21 | General Progress Note ---
Assessment/Plan Assessment/Plan ASSESSMENT: #. Leukocytosis with left shift. Likely was 2/2 to infection since has improved , is on abx --> WBC count critical value, on antibiotic IV. Continues to improve. #. Elevated PSA of 126, any PSA of >50 almost certainly represents prostate cancer --> Will order a bone survey however would not treat at the moment given poor performance status, hospice eval # Anemia --> will order work up to rule out deficiency #. Elevated CEA of >20, agree if not a treatment candidate at this moment #. Polycythemia, reactive, secondary to sepsis. #. Erythrocytosis, reactive. #. Acute renal insufficiency. #. Transaminitis. #. Bilirubinemia. #. Encephalopathy. #. G-tube replacement Subjective Date patient seen: Mar 29, 2017 Constitutional: Reports: no symptoms HEENT: Reports: no symptoms Cardiovascular: Reports: no symptoms Respiratory: Reports: no symptoms Gastrointestinal/Abdominal: Reports: no symptoms Genitourinary: Reports: no symptoms Neurologic/Psychiatric: Reports: no symptoms Endocrine: Reports: no symptoms Hematologic/Lymphatic: Reports: anemia Allergies: Coded Allergies: No Known Allergies (Verified , 09/26/12) Subjective unresponsive, NAD Objective Last 24 Hour Vital Signs Date Time Temp Pulse Resp B/P (MAP) Pulse Ox O2 Delivery O2 Flow Rate FiO2 03/30/17 09:00 70 03/30/17 08:00 98.1 89 20 123/66 94 Nasal Cannula 3.0 03/30/17 04:30 68 03/30/17 04:00 97.9 91 21 112/71 97 Nasal Cannula 3.0 03/30/17 00:00 98.6 89 21 102/65 100 Nasal Cannula 3.0 03/30/17 00:00 89 03/29/17 20:02 105 03/29/17 20:00 98.6 106 20 122/68 94 Nasal Cannula 3.0 03/29/17 19:09 95 Nasal Cannula 3.0 32 03/29/17 19:09 Nasal Cannula 3.0 32 03/29/17 16:00 103 03/29/17 16:00 98.0 92 20 96/50 94 Nasal Cannula 3.0 03/29/17 12:00 101 03/29/17 12:00 98.8 97 18 119/66 96 Nasal Cannula 3.0 Laboratory Tests 03/30/17 04:00: White Blood Count 16.2H, Red Blood Count 3.65L, Hemoglobin 11.3L, Hematocrit 32.8L, Mean Corpuscular Volume 90, Mean Corpuscular Hemoglobin 30.9, Mean Corpuscular Hemoglobin Concent 34.3, Red Cell Distribution Width 16.9H, Platelet Count 121L, Mean Platelet Volume 12.4H, Neutrophils (%) (Auto) 69.6, Lymphocytes (%) (Auto) 11.8L, Monocytes (%) (Auto) 9.9, Eosinophils (%) (Auto) 7.9H, Basophils (%) (Auto) 0.8, Sodium Level 147H, Potassium Level 4.0, Chloride Level 111H, Carbon Dioxide Level 27, Anion Gap 9, Blood Urea Nitrogen 42H, Creatinine 0.8, Estimat Glomerular Filtration Rate , Glucose Level 131H, Calcium Level 8.4L Height (Feet): 5 Height (Inches): 5.00 Weight (Pounds): 170 General Appearance: no apparent distress EENT: normal ENT inspection Neck: non-tender Neurologic: unresponsive Skin: warm/dry Jose Luis Rendon Mar 30, 2017 11:21
--- NOTE | 2017-03-30 12:34 | Diagnostic Imaging Report ---
Indication: Dyspnea Comparison: March 27, 2017 A single view chest radiograph was obtained. Findings: Lung volumes are low. There is interstitial edema suspected. Small left pleural effusion is likely present. Basilar atelectasis likely present. PICC line is stable. Impression: No significant change. Suspect mild interstitial edema and left basilar effusion
[2017-03-30 13:04] LABS: FERRITIN 245 ng/mL (10-230)
--- NOTE | 2017-03-30 13:14 | General Progress Note ---
Assessment/Plan Status: stable - from renal stand point Assessment/Plan - Acute Renal Failure- Cr lower - Dislodged gastrostomy tube - UTI (urinary tract infection), with severe leukocytosis, high Lactic acid - h/o Seizure - Dementia - Sepsis, WBCs lowering - COPD (chronic obstructive pulmonary disease) - Cachexia - High Troponin Plan: change IV to D5 Keep BP above 100 Avoid Nephrotoxics Monitor renal parameters Per consultants Subjective ROS Limited/Unobtainable: Yes Allergies: Coded Allergies: No Known Allergies (Verified , 09/26/12) Objective Last 24 Hour Vital Signs Date Time Temp Pulse Resp B/P (MAP) Pulse Ox O2 Delivery O2 Flow Rate FiO2 03/30/17 12:00 98.1 87 20 141/58 96 Nasal Cannula 3.0 03/30/17 12:00 88 03/30/17 09:00 70 03/30/17 08:00 98.1 89 20 123/66 94 Nasal Cannula 3.0 03/30/17 07:10 Nasal Cannula 5.0 03/30/17 07:10 96 Nasal Cannula 5.0 03/30/17 04:30 68 03/30/17 04:00 97.9 91 21 112/71 97 Nasal Cannula 3.0 03/30/17 00:00 98.6 89 21 102/65 100 Nasal Cannula 3.0 03/30/17 00:00 89 03/29/17 20:02 105 03/29/17 20:00 98.6 106 20 122/68 94 Nasal Cannula 3.0 03/29/17 19:09 95 Nasal Cannula 3.0 32 03/29/17 19:09 Nasal Cannula 3.0 32 03/29/17 16:00 103 03/29/17 16:00 98.0 92 20 96/50 94 Nasal Cannula 3.0 Intake and Output 03/30/17 03/31/17 19:00 07:00 # Bowel Movements 1 Laboratory Tests 03/30/17 04:00: White Blood Count 16.2H, Red Blood Count 3.65L, Hemoglobin 11.3L, Hematocrit 32.8L, Mean Corpuscular Volume 90, Mean Corpuscular Hemoglobin 30.9, Mean Corpuscular Hemoglobin Concent 34.3, Red Cell Distribution Width 16.9H, Platelet Count 121L, Mean Platelet Volume 12.4H, Neutrophils (%) (Auto) 69.6, Lymphocytes (%) (Auto) 11.8L, Monocytes (%) (Auto) 9.9, Eosinophils (%) (Auto) 7.9H, Basophils (%) (Auto) 0.8, Sodium Level 147H, Potassium Level 4.0, Chloride Level 111H, Carbon Dioxide Level 27, Anion Gap 9, Blood Urea Nitrogen 42H, Creatinine 0.8, Estimat Glomerular Filtration Rate , Glucose Level 131H, Calcium Level 8.4L 03/30/17 12:15: Ferritin 245H, Vitamin B12 Level [Pending] Height (Feet): 5 Height (Inches): 5.00 Weight (Pounds): 170 General Appearance: no apparent distress Objective PE unchanged FAITH SEARS Mar 30, 2017 13:14
[2017-03-30] MEDS ORDERED: DuoNeb 0.5-3(2.5)mg/3ml neb HHN PRN (14:00)
[2017-03-30] MEDS ORDERED: Morphine Sulfate 2mg/ml Inj IVP PRN (14:30)
[2017-03-30] MEDS ORDERED: Miralax 17gm pkt ORAL PRN (14:30)
--- NOTE | 2017-03-30 18:42 | Infectious Diseases Prog Note ---
Assessment/Plan Problems: (1) UTI (urinary tract infection) Assessment & Plan: due to Citrobacter freundii and pseudomonas aeruginosa , now improving on meropenem. will treat for 14 days . EOT 04/08/17 (2) Sepsis Assessment & Plan: improved on meropenem and clindamycin . will treat for two weeks with meropenem, stop clindamycin . EOT 04/08/17 (3) ATN (acute tubular necrosis) Assessment & Plan: improving , suspect due to sepsis, continue hydration, monitor UOP, renal is following (4) Suprapubic catheter Assessment & Plan: continue local care (5) Gross hematuria Assessment & Plan: no evidence of stone or tumor on renal US, only showed cysts , improved . Subjective ROS Limited/Unobtainable: Yes Allergies: Coded Allergies: No Known Allergies (Verified , 09/26/12) Subjective unresponsive, lying in bed. afebrile Objective Vital Signs Last 24 Hour Vital Signs Date Time Temp Pulse Resp B/P (MAP) Pulse Ox O2 Delivery O2 Flow Rate FiO2 03/30/17 16:00 97.5 87 20 104/60 96 03/30/17 12:00 98.1 87 20 141/58 96 Nasal Cannula 3.0 03/30/17 12:00 88 03/30/17 09:00 70 03/30/17 08:00 98.1 89 20 123/66 94 Nasal Cannula 3.0 03/30/17 07:10 Nasal Cannula 5.0 03/30/17 07:10 96 Nasal Cannula 5.0 03/30/17 04:30 68 03/30/17 04:00 97.9 91 21 112/71 97 Nasal Cannula 3.0 03/30/17 00:00 98.6 89 21 102/65 100 Nasal Cannula 3.0 03/30/17 00:00 89 03/29/17 20:02 105 03/29/17 20:00 98.6 106 20 122/68 94 Nasal Cannula 3.0 03/29/17 19:09 95 Nasal Cannula 3.0 32 03/29/17 19:09 Nasal Cannula 3.0 32 Height (Feet): 5 Height (Inches): 5.00 Weight (Pounds): 170 General Appearance: WD/WN, no acute distress HEENT: normocephalic, atraumatic, anicteric, mucous membranes moist, EOMI, pharynx normal, supple, no JVD Respiratory/Chest: chest wall non-tender, lungs clear, normal breath sounds, no respiratory distress, no accessory muscle use Cardiovascular: normal peripheral pulses, normal rate, regular rhythm, no gallop/murmur, no JVD Abdomen: normal bowel sounds, soft, non tender, no organomegaly, non distended , no mass, no scars Extremities: no cyanosis, no clubbing Skin: no rash, no lesions Neurologic/Psychiatric: unresponsiveness Microbiology Date/Time Source Procedure Growth Status 03/28/17 05:00 Stool Clostridium difficile Toxin Assay - Final Complete Laboratory Tests Test 03/30/17 04:00 03/30/17 12:15 White Blood Count 16.2 K/UL (4.8-10.8) H Red Blood Count 3.65 M/UL (4.70-6.10) L Hemoglobin 11.3 G/DL (14.2-18.0) L Hematocrit 32.8 % (42.0-52.0) L Mean Corpuscular Volume 90 FL (80-99) Mean Corpuscular Hemoglobin 30.9 PG (27.0-31.0) Mean Corpuscular Hemoglobin Concent 34.3 G/DL (32.0-36.0) Red Cell Distribution Width 16.9 % (11.6-14.8) H Platelet Count 121 K/UL (150-450) L Mean Platelet Volume 12.4 FL (6.5-10.1) H Neutrophils (%) (Auto) 69.6 % (45.0-75.0) Lymphocytes (%) (Auto) 11.8 % (20.0-45.0) L Monocytes (%) (Auto) 9.9 % (1.0-10.0) Eosinophils (%) (Auto) 7.9 % (0.0-3.0) H Basophils (%) (Auto) 0.8 % (0.0-2.0) Sodium Level 147 mEQ/L (135-145) H Potassium Level 4.0 mEQ/L (3.4-4.9) Chloride Level 111 mEQ/L (98-107) H Carbon Dioxide Level 27 mEQ/L (20-30) Anion Gap 9 (5-15) Blood Urea Nitrogen 42 mg/dL (7-23) H Creatinine 0.8 mg/dL (0.7-1.2) Estimat Glomerular Filtration Rate mL/min (>60) Glucose Level 131 mg/dL (74-106) H Calcium Level 8.4 mg/dL (8.6-10.2) L Ferritin 245 ng/mL (10-230) H Vitamin B12 Level > 2000 pg/mL (211-946) H Current Medications Medications (Trade) Dose Ordered Sig/Matt Route PRN Reason Start Time Stop Time Status Last Admin Dose Admin Acetaminophen (Tylenol) 650 mg Q4H PRN ORAL Mild Pain (Pain Scale 1-3) 03/30/17 14:00 04/22/17 17:59 Acetaminophen (Tylenol) 650 mg Q4H PRN ORAL T>100.5 03/30/17 14:15 04/22/17 10:14 Albuterol/ Ipratropium (DuoNeb 0.5-3(2.5)mg/3ml) 3 ml Q4H PRN HHN Shortness of Breath 03/30/17 14:00 04/03/17 13:59 Chlorhexidine Gluconate (Mari-Hex 2%) 1 applic QHS TOPIC 03/30/17 21:00 04/22/17 20:59 Clonidine HCl (Catapres) 0.1 mg Q4H PRN ORAL SBP > 160 mmHg 03/30/17 14:00 04/22/17 17:59 Lansoprazole (Prevacid) 30 mg DAILY ORAL 03/31/17 09:00 04/23/17 08:59 Meropenem 1 gm/ Sodium Chloride 110 ml @ 220 mls/hr Q8HR IVPB 03/30/17 14:00 04/03/17 21:59 03/30/17 16:16 Midodrine (Pro-Amatine) 10 mg THREE TIMES A DAY GT 03/30/17 14:30 04/26/17 14:29 03/30/17 17:02 Morphine Sulfate (Morphine Sulfate) 2 mg Q6H PRN IVP Moderate Pain (Pain Scale 4-6) 03/30/17 14:30 04/01/17 14:29 Ondansetron HCl (Zofran) 4 mg Q6H PRN IVP Nausea & Vomiting 03/30/17 14:30 04/22/17 14:29 Polyethylene Glycol (Miralax) 17 gm DAILYPRN PRN ORAL Constipation 03/30/17 14:30 04/29/17 14:29 Jose Juarez M.D. Mar 30, 2017 18:42
[2017-03-30] MEDS: Dyna-Hex 2% Top Sol 8oz TOPIC SCH (20:49)
--- NOTE | 2017-03-30 20:59 | General Progress Note ---
Assessment/Plan Problem List: (1) Dehydration ICD Codes: E86.0 - Dehydration SNOMED: 66391827 (2) Dementia ICD Codes: F03.90 - Unspecified dementia without behavioral disturbance SNOMED: 47973002 (3) Seizure ICD Codes: R56.9 - Unspecified convulsions SNOMED: 46655156 (4) Septic shock ICD Codes: A41.9 - Sepsis, unspecified organism; R65.21 - Severe sepsis with septic shock SNOMED: 56085415 (5) UTI (urinary tract infection) ICD Codes: N39.0 - Urinary tract infection, site not specified SNOMED: 46848641 Qualifiers: Qualified Codes: N30.01 - Acute cystitis with hematuria Status: progressing Assessment/Plan leukocytosis sepsis pna dehydration improving no seizure reviewed chart and labs Subjective ROS Limited/Unobtainable: Yes Allergies: Coded Allergies: No Known Allergies (Verified , 09/26/12) Objective Last 24 Hour Vital Signs Date Time Temp Pulse Resp B/P (MAP) Pulse Ox O2 Delivery O2 Flow Rate FiO2 03/30/17 20:00 98.9 91 18 113/61 95 Nasal Cannula 2.0 03/30/17 16:00 97.5 87 20 104/60 96 03/30/17 12:00 98.1 87 20 141/58 96 Nasal Cannula 3.0 03/30/17 12:00 88 03/30/17 09:00 70 03/30/17 08:00 98.1 89 20 123/66 94 Nasal Cannula 3.0 03/30/17 07:10 Nasal Cannula 5.0 03/30/17 07:10 96 Nasal Cannula 5.0 03/30/17 04:30 68 03/30/17 04:00 97.9 91 21 112/71 97 Nasal Cannula 3.0 03/30/17 00:00 98.6 89 21 102/65 100 Nasal Cannula 3.0 03/30/17 00:00 89 Intake and Output 03/30/17 03/31/17 19:00 07:00 Intake Total 925 ml Output Total 1925 ml Balance -1000 ml Intake Free Water 100 ml IV Total 110 ml Tube Feeding 715 ml Output Urine Total 1925 ml # Bowel Movements 3 Laboratory Tests 03/30/17 04:00: White Blood Count 16.2H, Red Blood Count 3.65L, Hemoglobin 11.3L, Hematocrit 32.8L, Mean Corpuscular Volume 90, Mean Corpuscular Hemoglobin 30.9, Mean Corpuscular Hemoglobin Concent 34.3, Red Cell Distribution Width 16.9H, Platelet Count 121L, Mean Platelet Volume 12.4H, Neutrophils (%) (Auto) 69.6, Lymphocytes (%) (Auto) 11.8L, Monocytes (%) (Auto) 9.9, Eosinophils (%) (Auto) 7.9H, Basophils (%) (Auto) 0.8, Sodium Level 147H, Potassium Level 4.0, Chloride Level 111H, Carbon Dioxide Level 27, Anion Gap 9, Blood Urea Nitrogen 42H, Creatinine 0.8, Estimat Glomerular Filtration Rate , Glucose Level 131H, Calcium Level 8.4L 03/30/17 12:15: Ferritin 245H, Vitamin B12 Level > 2000H Height (Feet): 5 Height (Inches): 5.00 Weight (Pounds): 170 Respiratory/Chest: lungs clear Abdomen: soft Sary Oakes MD Mar 30, 2017 20:59
--- NOTE | 2017-03-30 21:30 | General Progress Note ---
Assessment/Plan Assessment/Plan Assessment - abnormal LFT - resolved - dysphagia, h/o PEG - Sepsis, shock - s/p suprapubic cath - hematuria - OBS Recommendations - continue TF - GT care - supportive care - check abd U/S - negative - follow LFT - abx per ID Subjective Allergies: Coded Allergies: No Known Allergies (Verified , 09/26/12) Subjective Seen earlier today obtunded tolerating TF d/w RN Objective Last 24 Hour Vital Signs Date Time Temp Pulse Resp B/P (MAP) Pulse Ox O2 Delivery O2 Flow Rate FiO2 03/30/17 20:00 98.9 91 18 113/61 95 Nasal Cannula 2.0 03/30/17 16:00 97.5 87 20 104/60 96 03/30/17 12:00 98.1 87 20 141/58 96 Nasal Cannula 3.0 03/30/17 12:00 88 03/30/17 09:00 70 03/30/17 08:00 98.1 89 20 123/66 94 Nasal Cannula 3.0 03/30/17 07:10 Nasal Cannula 5.0 03/30/17 07:10 96 Nasal Cannula 5.0 03/30/17 04:30 68 03/30/17 04:00 97.9 91 21 112/71 97 Nasal Cannula 3.0 03/30/17 00:00 98.6 89 21 102/65 100 Nasal Cannula 3.0 03/30/17 00:00 89 Intake and Output 03/30/17 03/31/17 19:00 07:00 Intake Total 925 ml 230 ml Output Total 1925 ml Balance -1000 ml 230 ml Intake Free Water 100 ml 100 ml IV Total 110 ml Tube Feeding 715 ml 130 ml Output Urine Total 1925 ml # Bowel Movements 3 Laboratory Tests 03/30/17 04:00: White Blood Count 16.2H, Red Blood Count 3.65L, Hemoglobin 11.3L, Hematocrit 32.8L, Mean Corpuscular Volume 90, Mean Corpuscular Hemoglobin 30.9, Mean Corpuscular Hemoglobin Concent 34.3, Red Cell Distribution Width 16.9H, Platelet Count 121L, Mean Platelet Volume 12.4H, Neutrophils (%) (Auto) 69.6, Lymphocytes (%) (Auto) 11.8L, Monocytes (%) (Auto) 9.9, Eosinophils (%) (Auto) 7.9H, Basophils (%) (Auto) 0.8, Sodium Level 147H, Potassium Level 4.0, Chloride Level 111H, Carbon Dioxide Level 27, Anion Gap 9, Blood Urea Nitrogen 42H, Creatinine 0.8, Estimat Glomerular Filtration Rate , Glucose Level 131H, Calcium Level 8.4L 03/30/17 12:15: Ferritin 245H, Vitamin B12 Level > 2000H Height (Feet): 5 Height (Inches): 5.00 Weight (Pounds): 170 Objective Elderly confused WM NCAT supple CTA RRR abd soft , flat, (+) GT, (+) SP tube no edema OBS CURTIS GARCIA Mar 30, 2017 21:30
--- NOTE | 2017-03-30 23:57 | Cardiology Progress Note ---
Assessment/Plan Assessment/Plan 1. Septic shock, resolved, continue hydration. 2. Normal LV systolic function with no wall motion abnormalities. 3. Elevated troponin level, possibly combination of OSCAR and hypotension, cannot exclude NSTEMI (demand-ischemia), not a suitable candidate for ischemic work up given underlying mental status, 12 lead ECG shows no STT changes, Echo with no wall motion abnormalities, medical therapy. Subjective Subjective Transferred to the med-surg unit. Non-verbal Objective Last 24 Hour Vital Signs Date Time Temp Pulse Resp B/P (MAP) Pulse Ox O2 Delivery O2 Flow Rate FiO2 03/30/17 23:55 99.3 102 20 132/99 94 Nasal Cannula 2.0 03/30/17 20:00 98.9 91 18 113/61 95 Nasal Cannula 2.0 03/30/17 16:00 97.5 87 20 104/60 96 03/30/17 12:00 98.1 87 20 141/58 96 Nasal Cannula 3.0 03/30/17 12:00 88 03/30/17 09:00 70 03/30/17 08:00 98.1 89 20 123/66 94 Nasal Cannula 3.0 03/30/17 07:10 Nasal Cannula 5.0 03/30/17 07:10 96 Nasal Cannula 5.0 03/30/17 04:30 68 03/30/17 04:00 97.9 91 21 112/71 97 Nasal Cannula 3.0 03/30/17 00:00 98.6 89 21 102/65 100 Nasal Cannula 3.0 03/30/17 00:00 89 Intake and Output 03/30/17 03/31/17 19:00 07:00 Intake Total 925 ml 295 ml Output Total 1925 ml Balance -1000 ml 295 ml Intake Free Water 100 ml 100 ml IV Total 110 ml Tube Feeding 715 ml 195 ml Output Urine Total 1925 ml # Bowel Movements 3 2D Echo: LVEF 55%, Grade I LVDD Laboratory Tests Test 03/30/17 04:00 03/30/17 12:15 White Blood Count 16.2 K/UL (4.8-10.8) H Red Blood Count 3.65 M/UL (4.70-6.10) L Hemoglobin 11.3 G/DL (14.2-18.0) L Hematocrit 32.8 % (42.0-52.0) L Mean Corpuscular Volume 90 FL (80-99) Mean Corpuscular Hemoglobin 30.9 PG (27.0-31.0) Mean Corpuscular Hemoglobin Concent 34.3 G/DL (32.0-36.0) Red Cell Distribution Width 16.9 % (11.6-14.8) H Platelet Count 121 K/UL (150-450) L Mean Platelet Volume 12.4 FL (6.5-10.1) H Neutrophils (%) (Auto) 69.6 % (45.0-75.0) Lymphocytes (%) (Auto) 11.8 % (20.0-45.0) L Monocytes (%) (Auto) 9.9 % (1.0-10.0) Eosinophils (%) (Auto) 7.9 % (0.0-3.0) H Basophils (%) (Auto) 0.8 % (0.0-2.0) Sodium Level 147 mEQ/L (135-145) H Potassium Level 4.0 mEQ/L (3.4-4.9) Chloride Level 111 mEQ/L (98-107) H Carbon Dioxide Level 27 mEQ/L (20-30) Anion Gap 9 (5-15) Blood Urea Nitrogen 42 mg/dL (7-23) H Creatinine 0.8 mg/dL (0.7-1.2) Estimat Glomerular Filtration Rate mL/min (>60) Glucose Level 131 mg/dL (74-106) H Calcium Level 8.4 mg/dL (8.6-10.2) L Ferritin 245 ng/mL (10-230) H Vitamin B12 Level > 2000 pg/mL (211-946) H Microbiology Date/Time Source Procedure Growth Status 03/28/17 05:00 Stool Clostridium difficile Toxin Assay - Final Complete Objective HEENT: normocephalic, atraumatic, PERRL, EOMI, non-verbal Neck: No JVD, no carotid bruit, carotid upstroke 2+ B/L Respiratory: Clear B/L Cardiovascular: regular rate, rhythm, normal S1S2, tachycardic, no murmurs, gallops or rubs. Gastrointestinal: normal inspection, normal bowel sounds, non tender, soft, no guarding, no hernia Musculoskeletal: normal inspection, no edema, clubbing or cyanosis. FRANCISCO SPAIN Mar 30, 2017 23:57
[2017-03-31 04:00] VITALS: BP 160/89
[2017-03-31] MEDS: Meropenem 1 GM in NS 110 ML IVPB SCH ×3 (05:24→21:39)
[2017-03-31 07:41] LABS: BASOPHILS % (AUTO) 0.8 % (0.0-2.0); LYMPHOCYTES % (AUTO) 15.4 % (20.0-45.0); MEAN CORPUSCULAR HGB CONC 32.9 G/DL (32.0-36.0); MEAN CORPUSCULAR VOLUME 91 FL (80-99); MEAN PLATELET VOLUME 12.2 FL (6.5-10.1); MONOCYTES % (AUTO) 8.3 % (1.0-10.0); NEUTROPHILS % (AUTO) 70.5 % (45.0-75.0); PLATELET COUNT 160 K/UL (150-450); RED BLOOD COUNT 4.13 M/UL (4.70-6.10); WHITE BLOOD COUNT 14.2 K/UL (4.8-10.8)
[2017-03-31 07:59] LABS: ALANINE AMINOTRANSFERASE 59 U/L (3-41); ALBUMIN/GLOBULIN RATIO 0.6 (1.0-2.7); ANION GAP 8 (5-15); ASPARTATE AMINO TRANSFERASE 22 U/L (5-40); CALCIUM 8.8 mg/dL (8.6-10.2); CARBON DIOXIDE 32 mEQ/L (20-30); CHLORIDE 110 mEQ/L (98-107); CREATININE 0.8 mg/dL (0.7-1.2); CRP QUANT 7.8 mg/dL (< 0.5); HEMOLYSIS 3; MAGNESIUM 1.6 mg/dL (1.7-2.5); PHOSPHORUS 2.7 mg/dL (2.5-4.8); POTASSIUM 4.2 mEQ/L (3.4-4.9); SODIUM 150 mEQ/L (135-145); TOTAL PROTEIN 5.9 g/dL (6.6-8.7)
[2017-03-31 08:00] VITALS: BP 145/83
[2017-03-31] MEDS: Midodrine 10mg tab GT SCH ×3 (09:58→18:13)
[2017-03-31] MEDS ORDERED: NS 275ml ONE (11:11)
[2017-03-31] MEDS ORDERED: Tubing IV Secondary IV ONE ×2 (11:11→15:23)
--- NOTE | 2017-03-31 11:40 | General Progress Note ---
Assessment/Plan Assessment/Plan ASSESSMENT: #. Leukocytosis with left shift. Likely was 2/2 to infection since has improved , is on abx --> WBC count critical value, on antibiotic IV. Continues to improve. #. Elevated PSA of 126, any PSA of >50 almost certainly represents prostate cancer --> Will order a bone survey however would not treat at the moment given poor performance status, hospice eval # Anemia --> work up reviewed. Ferritin elevated, tibc low, no evidence of iron or b12 deficiency #. Elevated CEA of >20, agree if not a treatment candidate at this moment #. Polycythemia, reactive, secondary to sepsis. #. Erythrocytosis, reactive. #. Acute renal insufficiency. #. Transaminitis. #. Bilirubinemia. #. Encephalopathy. #. G-tube replacement Subjective Constitutional: Reports: no symptoms HEENT: Reports: no symptoms Cardiovascular: Reports: no symptoms Respiratory: Reports: no symptoms Gastrointestinal/Abdominal: Reports: no symptoms Genitourinary: Reports: no symptoms Neurologic/Psychiatric: Reports: no symptoms Endocrine: Reports: no symptoms Hematologic/Lymphatic: Reports: anemia Allergies: Coded Allergies: No Known Allergies (Verified , 09/26/12) Subjective obtunded Objective Last 24 Hour Vital Signs Date Time Temp Pulse Resp B/P (MAP) Pulse Ox O2 Delivery O2 Flow Rate FiO2 03/31/17 08:00 97.3 64 20 145/83 93 Nasal Cannula 3.0 03/31/17 06:59 Nasal Cannula 4.0 36 03/31/17 06:59 95 Nasal Cannula 4.0 36 03/31/17 04:00 99.6 105 21 160/89 95 Nasal Cannula 2.0 03/30/17 23:55 99.3 102 20 132/99 94 Nasal Cannula 2.0 03/30/17 20:00 98.9 91 18 113/61 95 Nasal Cannula 2.0 03/30/17 16:00 97.5 87 20 104/60 96 03/30/17 12:00 98.1 87 20 141/58 96 Nasal Cannula 3.0 03/30/17 12:00 88 Laboratory Tests 03/30/17 12:15: Ferritin 245H, Vitamin B12 Level > 2000H 03/31/17 06:40: White Blood Count 14.2H, Red Blood Count 4.13L, Hemoglobin 12.4L, Hematocrit 37.6L, Mean Corpuscular Volume 91, Mean Corpuscular Hemoglobin 30.0, Mean Corpuscular Hemoglobin Concent 32.9, Red Cell Distribution Width 17.0H, Platelet Count 160, Mean Platelet Volume 12.2H, Neutrophils (%) (Auto) 70.5, Lymphocytes (%) (Auto) 15.4L, Monocytes (%) (Auto) 8.3, Eosinophils (%) (Auto) 5.0H, Basophils (%) (Auto) 0.8, Erythrocyte Sedimentation Rate [Pending], Sodium Level 150H, Potassium Level 4.2, Chloride Level 110H, Carbon Dioxide Level 32H, Anion Gap 8, Blood Urea Nitrogen 32H, Creatinine 0.8, Estimat Glomerular Filtration Rate , Glucose Level 142H, Calcium Level 8.8, Phosphorus Level 2.7, Magnesium Level 1.6L, Total Bilirubin 0.7, Aspartate Amino Transf ( AST/SGOT) 22, Alanine Aminotransferase (ALT/SGPT) 59H, Alkaline Phosphatase 200H , C-Reactive Protein, Quantitative 7.8H, Total Protein 5.9L, Albumin 2.3L, Globulin 3.6, Albumin/Globulin Ratio 0.6L Height (Feet): 5 Height (Inches): 5.00 Weight (Pounds): 170 General Appearance: no apparent distress EENT: PERRL/EOMI Neck: normal alignment Cardiovascular: normal peripheral pulses Respiratory/Chest: chest wall non-tender Extremities: normal inspection Neurologic: unresponsive Skin: warm/dry Jose uLis Rendon Mar 31, 2017 11:40
[2017-03-31 12:38] LABS: ERYTHROCYTE SEDIMENTATION RATE 108 MM/HR (0-20)
--- NOTE | 2017-03-31 13:55 | General Progress Note ---
Assessment/Plan Problem List: (1) Dehydration ICD Codes: E86.0 - Dehydration SNOMED: 32912827 (2) Dementia ICD Codes: F03.90 - Unspecified dementia without behavioral disturbance SNOMED: 03994439 (3) Seizure ICD Codes: R56.9 - Unspecified convulsions SNOMED: 00754009 (4) Septic shock ICD Codes: A41.9 - Sepsis, unspecified organism; R65.21 - Severe sepsis with septic shock SNOMED: 52259858 (5) UTI (urinary tract infection) ICD Codes: N39.0 - Urinary tract infection, site not specified SNOMED: 19043471 Qualifiers: Qualified Codes: N30.01 - Acute cystitis with hematuria Status: progressing Assessment/Plan leukocytosis is improving worsening na and low mg.once free water and mg given and replaced will dc back to snf sepsis pna dehydration improving no seizure Subjective ROS Limited/Unobtainable: Yes Constitutional: Reports: no symptoms Allergies: Coded Allergies: No Known Allergies (Verified , 09/26/12) Objective Last 24 Hour Vital Signs Date Time Temp Pulse Resp B/P (MAP) Pulse Ox O2 Delivery O2 Flow Rate FiO2 03/31/17 08:00 97.3 64 20 145/83 93 Nasal Cannula 3.0 03/31/17 06:59 Nasal Cannula 4.0 36 03/31/17 06:59 95 Nasal Cannula 4.0 36 03/31/17 04:00 99.6 105 21 160/89 95 Nasal Cannula 2.0 03/30/17 23:55 99.3 102 20 132/99 94 Nasal Cannula 2.0 03/30/17 20:00 98.9 91 18 113/61 95 Nasal Cannula 2.0 03/30/17 16:00 97.5 87 20 104/60 96 Laboratory Tests 03/31/17 06:40: White Blood Count 14.2H, Red Blood Count 4.13L, Hemoglobin 12.4L, Hematocrit 37.6L, Mean Corpuscular Volume 91, Mean Corpuscular Hemoglobin 30.0, Mean Corpuscular Hemoglobin Concent 32.9, Red Cell Distribution Width 17.0H, Platelet Count 160, Mean Platelet Volume 12.2H, Neutrophils (%) (Auto) 70.5, Lymphocytes (%) (Auto) 15.4L, Monocytes (%) (Auto) 8.3, Eosinophils (%) (Auto) 5.0H, Basophils (%) (Auto) 0.8, Erythrocyte Sedimentation Rate 108H, Sodium Level 150H, Potassium Level 4.2, Chloride Level 110H, Carbon Dioxide Level 32H, Anion Gap 8, Blood Urea Nitrogen 32H, Creatinine 0.8, Estimat Glomerular Filtration Rate , Glucose Level 142H, Calcium Level 8.8, Phosphorus Level 2.7, Magnesium Level 1.6L, Total Bilirubin 0.7, Aspartate Amino Transf (AST/SGOT) 22 , Alanine Aminotransferase (ALT/SGPT) 59H, Alkaline Phosphatase 200H, C- Reactive Protein, Quantitative 7.8H, Total Protein 5.9L, Albumin 2.3L, Globulin 3.6, Albumin/Globulin Ratio 0.6L Height (Feet): 5 Height (Inches): 5.00 Weight (Pounds): 170 EENT: PERRL/EOMI Neck: supple Cardiovascular: normal rate Respiratory/Chest: lungs clear Abdomen: soft Sary Oakes MD Mar 31, 2017 13:55
--- NOTE | 2017-03-31 13:57 | General Progress Note ---
Assessment/Plan Status: stable Status Narrative Mild low Mag and high Na Assessment/Plan - Acute Renal Failure- Cr lower - Dislodged gastrostomy tube - UTI (urinary tract infection), with severe leukocytosis, high Lactic acid - h/o Seizure - Dementia - Sepsis, WBCs lowering - COPD (chronic obstructive pulmonary disease) - Cachexia - High Troponin Plan: 500 cc D5 mag IV Keep BP above 100 Avoid Nephrotoxics Monitor renal parameters Per consultants Subjective ROS Limited/Unobtainable: Yes Allergies: Coded Allergies: No Known Allergies (Verified , 09/26/12) Objective Last 24 Hour Vital Signs Date Time Temp Pulse Resp B/P (MAP) Pulse Ox O2 Delivery O2 Flow Rate FiO2 03/31/17 08:00 97.3 64 20 145/83 93 Nasal Cannula 3.0 03/31/17 06:59 Nasal Cannula 4.0 36 03/31/17 06:59 95 Nasal Cannula 4.0 36 03/31/17 04:00 99.6 105 21 160/89 95 Nasal Cannula 2.0 03/30/17 23:55 99.3 102 20 132/99 94 Nasal Cannula 2.0 03/30/17 20:00 98.9 91 18 113/61 95 Nasal Cannula 2.0 03/30/17 16:00 97.5 87 20 104/60 96 Laboratory Tests 03/31/17 06:40: White Blood Count 14.2H, Red Blood Count 4.13L, Hemoglobin 12.4L, Hematocrit 37.6L, Mean Corpuscular Volume 91, Mean Corpuscular Hemoglobin 30.0, Mean Corpuscular Hemoglobin Concent 32.9, Red Cell Distribution Width 17.0H, Platelet Count 160, Mean Platelet Volume 12.2H, Neutrophils (%) (Auto) 70.5, Lymphocytes (%) (Auto) 15.4L, Monocytes (%) (Auto) 8.3, Eosinophils (%) (Auto) 5.0H, Basophils (%) (Auto) 0.8, Erythrocyte Sedimentation Rate 108H, Sodium Level 150H, Potassium Level 4.2, Chloride Level 110H, Carbon Dioxide Level 32H, Anion Gap 8, Blood Urea Nitrogen 32H, Creatinine 0.8, Estimat Glomerular Filtration Rate , Glucose Level 142H, Calcium Level 8.8, Phosphorus Level 2.7, Magnesium Level 1.6L, Total Bilirubin 0.7, Aspartate Amino Transf (AST/SGOT) 22 , Alanine Aminotransferase (ALT/SGPT) 59H, Alkaline Phosphatase 200H, C- Reactive Protein, Quantitative 7.8H, Total Protein 5.9L, Albumin 2.3L, Globulin 3.6, Albumin/Globulin Ratio 0.6L Height (Feet): 5 Height (Inches): 5.00 Weight (Pounds): 170 General Appearance: no apparent distress Objective PE unchanged FAITH SEARS Mar 31, 2017 13:57
--- NOTE | 2017-03-31 15:19 | Infectious Diseases Prog Note ---
Assessment/Plan Problems: (1) UTI (urinary tract infection) Assessment & Plan: due to Citrobacter freundii and pseudomonas aeruginosa , improving on meropenem. will treat for 14 days . EOT 04/08/17 (2) Sepsis Assessment & Plan: improved on meropenem and clindamycin . will treat for two weeks with meropenem, stop clindamycin . EOT 04/08/17 (3) ATN (acute tubular necrosis) Assessment & Plan: improving , suspect due to sepsis, continue hydration, monitor UOP, renal is following (4) Suprapubic catheter Assessment & Plan: continue local care (5) Gross hematuria Assessment & Plan: no evidence of stone or tumor on renal US, only showed cysts , improved . Subjective ROS Limited/Unobtainable: Yes Allergies: Coded Allergies: No Known Allergies (Verified , 09/26/12) Subjective unresponsive, lying in bed. afebrile Objective Vital Signs Last 24 Hour Vital Signs Date Time Temp Pulse Resp B/P (MAP) Pulse Ox O2 Delivery O2 Flow Rate FiO2 03/31/17 08:00 97.3 64 20 145/83 93 Nasal Cannula 3.0 03/31/17 06:59 Nasal Cannula 4.0 36 03/31/17 06:59 95 Nasal Cannula 4.0 36 03/31/17 04:00 99.6 105 21 160/89 95 Nasal Cannula 2.0 03/30/17 23:55 99.3 102 20 132/99 94 Nasal Cannula 2.0 03/30/17 20:00 98.9 91 18 113/61 95 Nasal Cannula 2.0 03/30/17 16:00 97.5 87 20 104/60 96 Height (Feet): 5 Height (Inches): 5.00 Weight (Pounds): 170 General Appearance: WD/WN, cachetic HEENT: normocephalic, atraumatic, supple, no JVD Respiratory/Chest: chest wall non-tender, lungs clear, normal breath sounds, no respiratory distress, no accessory muscle use Cardiovascular: normal peripheral pulses, normal rate, regular rhythm, no gallop/murmur, no JVD Abdomen: normal bowel sounds, soft, non tender, no organomegaly, non distended , no mass, other - suprapubic catheter Extremities: no cyanosis, no clubbing Skin: no rash, no lesions, ulcers Laboratory Tests Test 03/31/17 06:40 White Blood Count 14.2 K/UL (4.8-10.8) H Red Blood Count 4.13 M/UL (4.70-6.10) L Hemoglobin 12.4 G/DL (14.2-18.0) L Hematocrit 37.6 % (42.0-52.0) L Mean Corpuscular Volume 91 FL (80-99) Mean Corpuscular Hemoglobin 30.0 PG (27.0-31.0) Mean Corpuscular Hemoglobin Concent 32.9 G/DL (32.0-36.0) Red Cell Distribution Width 17.0 % (11.6-14.8) H Platelet Count 160 K/UL (150-450) Mean Platelet Volume 12.2 FL (6.5-10.1) H Neutrophils (%) (Auto) 70.5 % (45.0-75.0) Lymphocytes (%) (Auto) 15.4 % (20.0-45.0) L Monocytes (%) (Auto) 8.3 % (1.0-10.0) Eosinophils (%) (Auto) 5.0 % (0.0-3.0) H Basophils (%) (Auto) 0.8 % (0.0-2.0) Erythrocyte Sedimentation Rate 108 MM/HR (0-20) H Sodium Level 150 mEQ/L (135-145) H Potassium Level 4.2 mEQ/L (3.4-4.9) Chloride Level 110 mEQ/L (98-107) H Carbon Dioxide Level 32 mEQ/L (20-30) H Anion Gap 8 (5-15) Blood Urea Nitrogen 32 mg/dL (7-23) H Creatinine 0.8 mg/dL (0.7-1.2) Estimat Glomerular Filtration Rate mL/min (>60) Glucose Level 142 mg/dL (74-106) H Calcium Level 8.8 mg/dL (8.6-10.2) Phosphorus Level 2.7 mg/dL (2.5-4.8) Magnesium Level 1.6 mg/dL (1.7-2.5) L Total Bilirubin 0.7 mg/dL (0.0-1.2) Aspartate Amino Transf (AST/SGOT) 22 U/L (5-40) Alanine Aminotransferase (ALT/SGPT) 59 U/L (3-41) H Alkaline Phosphatase 200 U/L (40-129) H C-Reactive Protein, Quantitative 7.8 mg/dL (< 0.5) H Total Protein 5.9 g/dL (6.6-8.7) L Albumin 2.3 g/dL (3.5-5.2) L Globulin 3.6 g/dL Albumin/Globulin Ratio 0.6 (1.0-2.7) L Current Medications Medications (Trade) Dose Ordered Sig/Matt Route PRN Reason Start Time Stop Time Status Last Admin Dose Admin Acetaminophen (Tylenol) 650 mg Q4H PRN ORAL Mild Pain (Pain Scale 1-3) 03/30/17 14:00 04/22/17 17:59 Acetaminophen (Tylenol) 650 mg Q4H PRN ORAL T>100.5 03/30/17 14:15 04/22/17 10:14 Albuterol/ Ipratropium (DuoNeb 0.5-3(2.5)mg/3ml) 3 ml Q4H PRN HHN Shortness of Breath 03/30/17 14:00 04/03/17 13:59 Chlorhexidine Gluconate (Mari-Hex 2%) 1 applic QHS TOPIC 03/30/17 21:00 04/22/17 20:59 03/30/17 20:49 Clonidine HCl (Catapres) 0.1 mg Q4H PRN ORAL SBP > 160 mmHg 03/30/17 14:00 04/22/17 17:59 Lansoprazole (Prevacid) 30 mg DAILY ORAL 03/31/17 09:00 04/23/17 08:59 03/31/17 09:59 Magnesium Sulfate 100 ml @ 100 mls/hr Q1H IVPB 03/31/17 14:15 03/31/17 18:14 Meropenem 1 gm/ Sodium Chloride 110 ml @ 220 mls/hr Q8HR IVPB 03/30/17 14:00 04/03/17 21:59 03/31/17 05:24 Midodrine (Pro-Amatine) 10 mg THREE TIMES A DAY GT 03/31/17 18:00 04/30/17 17:59 Morphine Sulfate (Morphine Sulfate) 2 mg Q6H PRN IVP Moderate Pain (Pain Scale 4-6) 03/30/17 14:30 04/01/17 14:29 Ondansetron HCl (Zofran) 4 mg Q6H PRN IVP Nausea & Vomiting 03/30/17 14:30 04/22/17 14:29 Polyethylene Glycol (Miralax) 17 gm DAILYPRN PRN ORAL Constipation 03/30/17 14:30 04/29/17 14:29 Jose Juarez M.D. Mar 31, 2017 15:19
[2017-03-31] MEDS ORDERED: D5W 275ml ONE (15:23)
[2017-03-31 16:00] VITALS: BP_SYST 141; BP_SYST 143; BP_DIAS 73; BP_DIAS 80
[2017-03-31] MEDS ORDERED: D5W 500ml 550 ML IV ONE (16:30)
[2017-03-31] MEDS ORDERED: D5W 500ml 550 ML IV SCH (16:45)
--- NOTE | 2017-03-31 16:48 | Pulmonology Progress Note ---
Assessment/Plan Problems: (1) Septic shock (2) ATN (acute tubular necrosis) (3) Suprapubic catheter (4) Gross hematuria (5) Prostate cancer (6) Cachexia (7) COPD (chronic obstructive pulmonary disease) (8) Dementia Assessment/Plan respiratory treatment IV abx check electrolytes dvt prophylaxis dyspnea is probably secondary to aspiration of abdominal content, suggest to dc Gtube feeding and start "comfort feeding" med/surg Subjective Interval Events: more congested Allergies: Coded Allergies: No Known Allergies (Verified , 09/26/12) Objective Last 24 Hour Vital Signs Date Time Temp Pulse Resp B/P (MAP) Pulse Ox O2 Delivery O2 Flow Rate FiO2 03/31/17 16:00 97.3 81 20 143/80 95 Nasal Cannula 3.0 03/31/17 16:00 97.3 92 20 141/73 96 Room Air 03/31/17 08:00 97.3 64 20 145/83 93 Nasal Cannula 3.0 03/31/17 06:59 Nasal Cannula 4.0 36 03/31/17 06:59 95 Nasal Cannula 4.0 36 03/31/17 04:00 99.6 105 21 160/89 95 Nasal Cannula 2.0 03/30/17 23:55 99.3 102 20 132/99 94 Nasal Cannula 2.0 03/30/17 20:00 98.9 91 18 113/61 95 Nasal Cannula 2.0 General Appearance: cachetic HEENT: normocephalic Respiratory/Chest: chest wall non-tender, lungs clear, normal breath sounds Cardiovascular: normal peripheral pulses, regular rhythm Abdomen: normal bowel sounds, no organomegaly, hyperactive bowel sounds Genitourinary: normal external genitalia Extremities: no clubbing Skin: no rash, no lesions Laboratory Tests 03/31/17 06:40: White Blood Count 14.2H, Red Blood Count 4.13L, Hemoglobin 12.4L, Hematocrit 37.6L, Mean Corpuscular Volume 91, Mean Corpuscular Hemoglobin 30.0, Mean Corpuscular Hemoglobin Concent 32.9, Red Cell Distribution Width 17.0H, Platelet Count 160, Mean Platelet Volume 12.2H, Neutrophils (%) (Auto) 70.5, Lymphocytes (%) (Auto) 15.4L, Monocytes (%) (Auto) 8.3, Eosinophils (%) (Auto) 5.0H, Basophils (%) (Auto) 0.8, Erythrocyte Sedimentation Rate 108H, Sodium Level 150H, Potassium Level 4.2, Chloride Level 110H, Carbon Dioxide Level 32H, Anion Gap 8, Blood Urea Nitrogen 32H, Creatinine 0.8, Estimat Glomerular Filtration Rate , Glucose Level 142H, Calcium Level 8.8, Phosphorus Level 2.7, Magnesium Level 1.6L, Total Bilirubin 0.7, Aspartate Amino Transf (AST/SGOT) 22 , Alanine Aminotransferase (ALT/SGPT) 59H, Alkaline Phosphatase 200H, C- Reactive Protein, Quantitative 7.8H, Total Protein 5.9L, Albumin 2.3L, Globulin 3.6, Albumin/Globulin Ratio 0.6L Current Medications Medications (Trade) Dose Ordered Sig/Matt Route PRN Reason Start Time Stop Time Status Last Admin Dose Admin Acetaminophen (Tylenol) 650 mg Q4H PRN ORAL Mild Pain (Pain Scale 1-3) 03/30/17 14:00 04/22/17 17:59 Acetaminophen (Tylenol) 650 mg Q4H PRN ORAL T>100.5 03/30/17 14:15 04/22/17 10:14 Albuterol/ Ipratropium (DuoNeb 0.5-3(2.5)mg/3ml) 3 ml Q4H PRN HHN Shortness of Breath 03/30/17 14:00 04/03/17 13:59 Chlorhexidine Gluconate (Mari-Hex 2%) 1 applic QHS TOPIC 03/30/17 21:00 04/22/17 20:59 03/30/17 20:49 Clonidine HCl (Catapres) 0.1 mg Q4H PRN ORAL SBP > 160 mmHg 03/30/17 14:00 04/22/17 17:59 Dextrose 550 ml @ 550 mls/hr ONCE IV 03/31/17 16:45 03/31/17 18:00 Lansoprazole (Prevacid) 30 mg DAILY ORAL 03/31/17 09:00 04/23/17 08:59 03/31/17 09:59 Magnesium Sulfate 100 ml @ 100 mls/hr Q1H IVPB 03/31/17 14:15 03/31/17 18:14 03/31/17 15:43 Meropenem 1 gm/ Sodium Chloride 110 ml @ 220 mls/hr Q8HR IVPB 03/30/17 14:00 04/08/17 23:59 03/31/17 05:24 Midodrine (Pro-Amatine) 10 mg THREE TIMES A DAY GT 03/31/17 18:00 04/30/17 17:59 Morphine Sulfate (Morphine Sulfate) 2 mg Q6H PRN IVP Moderate Pain (Pain Scale 4-6) 03/30/17 14:30 04/01/17 14:29 Ondansetron HCl (Zofran) 4 mg Q6H PRN IVP Nausea & Vomiting 03/30/17 14:30 04/22/17 14:29 Polyethylene Glycol (Miralax) 17 gm DAILYPRN PRN ORAL Constipation 03/30/17 14:30 04/29/17 14:29 VERITO QUEZADA Mar 31, 2017 16:48
--- NOTE | 2017-03-31 17:23 | General Progress Note ---
Assessment/Plan Assessment/Plan ASSESSMENT: #. Leukocytosis with left shift. Likely was 2/2 to infection since has improved , is on abx --> WBC count critical value, on antibiotic IV. Continues to improve. #. Elevated PSA of 126, any PSA of >50 almost certainly represents prostate cancer --> Will order a bone survey however would not treat at the moment given poor performance status, hospice eval # Anemia --> work up reviewed. Ferritin elevated, tibc low, no evidence of iron or b12 deficiency #. Elevated CEA of >20, agree if not a treatment candidate at this moment #. Acute renal insufficiency. --> dehydration improved #. Transaminitis. #. Bilirubinemia. #. Encephalopathy. #. G-tube replacement Subjective Constitutional: Reports: no symptoms HEENT: Reports: no symptoms Cardiovascular: Reports: no symptoms Respiratory: Reports: no symptoms Gastrointestinal/Abdominal: Reports: no symptoms Genitourinary: Reports: no symptoms Neurologic/Psychiatric: Reports: no symptoms Endocrine: Reports: no symptoms Hematologic/Lymphatic: Reports: no symptoms Allergies: Coded Allergies: No Known Allergies (Verified , 09/26/12) Subjective no signs of distress Objective Last 24 Hour Vital Signs Date Time Temp Pulse Resp B/P (MAP) Pulse Ox O2 Delivery O2 Flow Rate FiO2 03/31/17 16:00 97.3 81 20 143/80 95 Nasal Cannula 3.0 03/31/17 16:00 97.3 92 20 141/73 96 Room Air 03/31/17 08:00 97.3 64 20 145/83 93 Nasal Cannula 3.0 03/31/17 06:59 Nasal Cannula 4.0 36 03/31/17 06:59 95 Nasal Cannula 4.0 36 03/31/17 04:00 99.6 105 21 160/89 95 Nasal Cannula 2.0 03/30/17 23:55 99.3 102 20 132/99 94 Nasal Cannula 2.0 03/30/17 20:00 98.9 91 18 113/61 95 Nasal Cannula 2.0 Laboratory Tests 03/31/17 06:40: White Blood Count 14.2H, Red Blood Count 4.13L, Hemoglobin 12.4L, Hematocrit 37.6L, Mean Corpuscular Volume 91, Mean Corpuscular Hemoglobin 30.0, Mean Corpuscular Hemoglobin Concent 32.9, Red Cell Distribution Width 17.0H, Platelet Count 160, Mean Platelet Volume 12.2H, Neutrophils (%) (Auto) 70.5, Lymphocytes (%) (Auto) 15.4L, Monocytes (%) (Auto) 8.3, Eosinophils (%) (Auto) 5.0H, Basophils (%) (Auto) 0.8, Erythrocyte Sedimentation Rate 108H, Sodium Level 150H, Potassium Level 4.2, Chloride Level 110H, Carbon Dioxide Level 32H, Anion Gap 8, Blood Urea Nitrogen 32H, Creatinine 0.8, Estimat Glomerular Filtration Rate , Glucose Level 142H, Calcium Level 8.8, Phosphorus Level 2.7, Magnesium Level 1.6L, Total Bilirubin 0.7, Aspartate Amino Transf (AST/SGOT) 22 , Alanine Aminotransferase (ALT/SGPT) 59H, Alkaline Phosphatase 200H, C- Reactive Protein, Quantitative 7.8H, Total Protein 5.9L, Albumin 2.3L, Globulin 3.6, Albumin/Globulin Ratio 0.6L Height (Feet): 5 Height (Inches): 5.00 Weight (Pounds): 170 General Appearance: no apparent distress EENT: normal ENT inspection Neck: normal alignment Cardiovascular: normal peripheral pulses 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
[2017-03-31 19:53] VITALS: BP 130/69
[2017-03-31] MEDS: Dyna-Hex 2% Top Sol 8oz TOPIC SCH (20:24)
--- NOTE | 2017-03-31 21:09 | General Progress Note ---
Assessment/Plan Assessment/Plan Assessment - abnormal LFT - resolving - dysphagia, h/o PEG - Sepsis, shock - s/p suprapubic cath - hematuria - OBS Recommendations - continue TF - GT care - supportive care - check abd U/S - negative - follow LFT - abx per ID Subjective Allergies: Coded Allergies: No Known Allergies (Verified , 09/26/12) Subjective Seen earlier today obtunded tolerating TF no events Objective Last 24 Hour Vital Signs Date Time Temp Pulse Resp B/P (MAP) Pulse Ox O2 Delivery O2 Flow Rate FiO2 03/31/17 20:04 98 Nasal Cannula 2.0 28 03/31/17 20:04 Nasal Cannula 2.0 28 03/31/17 19:53 97.7 85 20 130/69 97 Nasal Cannula 03/31/17 16:00 97.3 81 20 143/80 95 Nasal Cannula 3.0 03/31/17 16:00 97.3 92 20 141/73 96 Room Air 03/31/17 08:00 97.3 64 20 145/83 93 Nasal Cannula 3.0 03/31/17 06:59 Nasal Cannula 4.0 36 03/31/17 06:59 95 Nasal Cannula 4.0 36 03/31/17 04:00 99.6 105 21 160/89 95 Nasal Cannula 2.0 03/30/17 23:55 99.3 102 20 132/99 94 Nasal Cannula 2.0 Intake and Output 03/31/17 04/01/17 19:00 07:00 Intake Total 1305 ml Output Total 2000 ml Balance -695 ml Free Water 280 ml IV Total 310 ml Tube Feeding 715 ml Output Urine Total 2000 ml # Bowel Movements 1 Laboratory Tests 03/31/17 06:40: White Blood Count 14.2H, Red Blood Count 4.13L, Hemoglobin 12.4L, Hematocrit 37.6L, Mean Corpuscular Volume 91, Mean Corpuscular Hemoglobin 30.0, Mean Corpuscular Hemoglobin Concent 32.9, Red Cell Distribution Width 17.0H, Platelet Count 160, Mean Platelet Volume 12.2H, Neutrophils (%) (Auto) 70.5, Lymphocytes (%) (Auto) 15.4L, Monocytes (%) (Auto) 8.3, Eosinophils (%) (Auto) 5.0H, Basophils (%) (Auto) 0.8, Erythrocyte Sedimentation Rate 108H, Sodium Level 150H, Potassium Level 4.2, Chloride Level 110H, Carbon Dioxide Level 32H, Anion Gap 8, Blood Urea Nitrogen 32H, Creatinine 0.8, Estimat Glomerular Filtration Rate , Glucose Level 142H, Calcium Level 8.8, Phosphorus Level 2.7, Magnesium Level 1.6L, Total Bilirubin 0.7, Aspartate Amino Transf (AST/SGOT) 22 , Alanine Aminotransferase (ALT/SGPT) 59H, Alkaline Phosphatase 200H, C- Reactive Protein, Quantitative 7.8H, Total Protein 5.9L, Albumin 2.3L, Globulin 3.6, Albumin/Globulin Ratio 0.6L Height (Feet): 5 Height (Inches): 5.00 Weight (Pounds): 170 Objective Elderly confused WM NCAT supple CTA RRR abd soft , flat, (+) GT, (+) SP tube no edema OBS CURTIS GARCIA Mar 31, 2017 21:09
--- NOTE | 2017-03-31 23:50 | Cardiology Progress Note ---
Assessment/Plan Assessment/Plan 1. Septic shock, resolved, continue hydration. 2. Normal LV systolic function with no wall motion abnormalities. 3. Elevated troponin level, possibly combination of OSCAR and hypotension, cannot exclude NSTEMI (demand-ischemia), not a suitable candidate for ischemic work up given underlying mental status, 12 lead ECG shows no STT changes, Echo with no wall motion abnormalities, medical therapy. Subjective Subjective Denies chest pain or SOB. Non-verbal Objective Last 24 Hour Vital Signs Date Time Temp Pulse Resp B/P (MAP) Pulse Ox O2 Delivery O2 Flow Rate FiO2 03/31/17 20:04 98 Nasal Cannula 2.0 28 03/31/17 20:04 Nasal Cannula 2.0 28 03/31/17 19:53 97.7 85 20 130/69 97 Nasal Cannula 03/31/17 16:00 97.3 81 20 143/80 95 Nasal Cannula 3.0 03/31/17 16:00 97.3 92 20 141/73 96 Room Air 03/31/17 08:00 97.3 64 20 145/83 93 Nasal Cannula 3.0 03/31/17 06:59 Nasal Cannula 4.0 36 03/31/17 06:59 95 Nasal Cannula 4.0 36 03/31/17 04:00 99.6 105 21 160/89 95 Nasal Cannula 2.0 03/30/17 23:55 99.3 102 20 132/99 94 Nasal Cannula 2.0 Intake and Output 03/31/17 04/01/17 19:00 07:00 Intake Total 1305 ml Output Total 2000 ml Balance -695 ml Free Water 280 ml IV Total 310 ml Tube Feeding 715 ml Output Urine Total 2000 ml # Bowel Movements 1 2D Echo: LVEF 55%, Grade I LVDD Laboratory Tests Test 03/31/17 06:40 White Blood Count 14.2 K/UL (4.8-10.8) H Red Blood Count 4.13 M/UL (4.70-6.10) L Hemoglobin 12.4 G/DL (14.2-18.0) L Hematocrit 37.6 % (42.0-52.0) L Mean Corpuscular Volume 91 FL (80-99) Mean Corpuscular Hemoglobin 30.0 PG (27.0-31.0) Mean Corpuscular Hemoglobin Concent 32.9 G/DL (32.0-36.0) Red Cell Distribution Width 17.0 % (11.6-14.8) H Platelet Count 160 K/UL (150-450) Mean Platelet Volume 12.2 FL (6.5-10.1) H Neutrophils (%) (Auto) 70.5 % (45.0-75.0) Lymphocytes (%) (Auto) 15.4 % (20.0-45.0) L Monocytes (%) (Auto) 8.3 % (1.0-10.0) Eosinophils (%) (Auto) 5.0 % (0.0-3.0) H Basophils (%) (Auto) 0.8 % (0.0-2.0) Erythrocyte Sedimentation Rate 108 MM/HR (0-20) H Sodium Level 150 mEQ/L (135-145) H Potassium Level 4.2 mEQ/L (3.4-4.9) Chloride Level 110 mEQ/L (98-107) H Carbon Dioxide Level 32 mEQ/L (20-30) H Anion Gap 8 (5-15) Blood Urea Nitrogen 32 mg/dL (7-23) H Creatinine 0.8 mg/dL (0.7-1.2) Estimat Glomerular Filtration Rate mL/min (>60) Glucose Level 142 mg/dL (74-106) H Calcium Level 8.8 mg/dL (8.6-10.2) Phosphorus Level 2.7 mg/dL (2.5-4.8) Magnesium Level 1.6 mg/dL (1.7-2.5) L Total Bilirubin 0.7 mg/dL (0.0-1.2) Aspartate Amino Transf (AST/SGOT) 22 U/L (5-40) Alanine Aminotransferase (ALT/SGPT) 59 U/L (3-41) H Alkaline Phosphatase 200 U/L (40-129) H C-Reactive Protein, Quantitative 7.8 mg/dL (< 0.5) H Total Protein 5.9 g/dL (6.6-8.7) L Albumin 2.3 g/dL (3.5-5.2) L Globulin 3.6 g/dL Albumin/Globulin Ratio 0.6 (1.0-2.7) L Objective HEENT: normocephalic, atraumatic, PERRL, EOMI, non-verbal Neck: No JVD, no carotid bruit, carotid upstroke 2+ B/L Respiratory: Clear B/L Cardiovascular: regular rate, rhythm, normal S1S2, tachycardic, no murmurs, gallops or rubs. Gastrointestinal: normal inspection, normal bowel sounds, non tender, soft, no guarding, no hernia Musculoskeletal: normal inspection, no edema, clubbing or cyanosis. FRANCISCO SPAIN Mar 31, 2017 23:50
[2017-03-31 23:55] VITALS: BP 132/67
[2017-04-01 04:55] VITALS: BP 131/100
[2017-04-01] MEDS: Meropenem 1 GM in NS 110 ML IVPB SCH ×2 (05:44→14:06)
[2017-04-01 08:04] VITALS: BP 125/100
[2017-04-01] MEDS ORDERED: MEROPENEM-1 GM/50 ML IV (08:28)
[2017-04-01 08:39] LABS: BASOPHILS % (AUTO) 0.7 % (0.0-2.0); EOSINOPHILS % (AUTO) 4.1 % (0.0-3.0); MEAN CORPUSCULAR HEMOGLOBIN 30.8 PG (27.0-31.0); MEAN CORPUSCULAR HGB CONC 33.7 G/DL (32.0-36.0); MEAN CORPUSCULAR VOLUME 91 FL (80-99); MEAN PLATELET VOLUME 11.5 FL (6.5-10.1); MONOCYTES % (AUTO) 8.3 % (1.0-10.0); NEUTROPHILS % (AUTO) 73.9 % (45.0-75.0); PLATELET COUNT 161 K/UL (150-450); RED BLOOD COUNT 3.69 M/UL (4.70-6.10); RED CELL DISTRIBUTION WIDTH 16.3 % (11.6-14.8); WHITE BLOOD COUNT 12.1 K/UL (4.8-10.8)
[2017-04-01 09:04] LABS: ANION GAP 5 (5-15); CALCIUM 8.5 mg/dL (8.6-10.2); CARBON DIOXIDE 34 mEQ/L (20-30); CHLORIDE 105 mEQ/L (98-107); CREATININE 0.6 mg/dL (0.7-1.2); HEMOLYSIS 0; POTASSIUM 4.2 mEQ/L (3.4-4.9); SODIUM 144 mEQ/L (135-145)
[2017-04-01] MEDS: Midodrine 10mg tab GT SCH ×2 (09:38→14:07)
--- NOTE | 2017-04-01 09:46 | General Progress Note ---
Assessment/Plan Assessment/Plan Assessment - abnormal LFT - resolving - dysphagia, h/o PEG - Sepsis, shock - s/p suprapubic cath - hematuria - OBS Recommendations - continue TF - GT care - supportive care - check abd U/S - negative - follow LFT - abx per ID Subjective Allergies: Coded Allergies: No Known Allergies (Verified , 09/26/12) Subjective Seen earlier today tolerating TF no events Objective Last 24 Hour Vital Signs Date Time Temp Pulse Resp B/P (MAP) Pulse Ox O2 Delivery O2 Flow Rate FiO2 04/01/17 08:04 97.5 95 21 125/100 95 Nasal Cannula 2.0 04/01/17 04:55 96.5 101 20 131/100 91 Nasal Cannula 03/31/17 23:55 96.8 83 20 132/67 97 Nasal Cannula 03/31/17 20:04 98 Nasal Cannula 2.0 28 03/31/17 20:04 Nasal Cannula 2.0 28 03/31/17 19:53 97.7 85 20 130/69 97 Nasal Cannula 03/31/17 16:00 97.3 81 20 143/80 95 Nasal Cannula 3.0 03/31/17 16:00 97.3 92 20 141/73 96 Room Air Laboratory Tests 04/01/17 08:20: White Blood Count 12.1H, Red Blood Count 3.69L, Hemoglobin 11.3L, Hematocrit 33.7L, Mean Corpuscular Volume 91, Mean Corpuscular Hemoglobin 30.8, Mean Corpuscular Hemoglobin Concent 33.7, Red Cell Distribution Width 16.3H, Platelet Count 161, Mean Platelet Volume 11.5H, Neutrophils (%) (Auto) 73.9, Lymphocytes (%) (Auto) 13.0L, Monocytes (%) (Auto) 8.3, Eosinophils (%) (Auto) 4.1H, Basophils (%) (Auto) 0.7, Sodium Level 144, Potassium Level 4.2, Chloride Level 105, Carbon Dioxide Level 34H, Anion Gap 5, Blood Urea Nitrogen 25H, Creatinine 0.6L, Estimat Glomerular Filtration Rate , Glucose Level 157H, Calcium Level 8.5L Height (Feet): 5 Height (Inches): 5.00 Weight (Pounds): 174 Objective Elderly confused WM NCAT supple CTA RRR abd soft , flat, (+) GT, (+) SP tube no edema OBS CURTIS GARCIA Apr 01, 2017 09:46
--- NOTE | 2017-04-01 10:45 | Wound Care Consultation ---
Wound Assessment Wound Assessment #1: Wound Present on Admission: Yes New Wound: No Status Change of Wound: No Wound Location Body Site Modif: right Wound Location Body Site: heel Wound Type: pressure ulcer Bruce Test: Does not Bruce Pressure Ulcer Stage: deep tissue injury Wound Thickness: Full Thickness Wound Length: 4.0 Wound Width: 4.0 Wound Depth: utd Percent of Wound Purple/Maroon: 100 Wound Drainage Amount: None Wound Drainage Odor: None/Absent Tissue Surrounding Wound: Intact Wound Assessment #2: Wound Number: 2 Wound Present on Admission: Yes New Wound: No Status Change of Wound: No Wound Location Body Site Modif: left Wound Location Body Site: heel Wound Type: pressure ulcer Bruce Test: Does not Bruce Pressure Ulcer Stage: IV/unstageable Wound Thickness: Full Thickness Wound Length: 2.5 Wound Width: 2.5 Wound Depth: utd Percent of Wound Bed Yellow/Wh: 100 Wound Drainage Description: Serosanguineous Wound Drainage Amount: Moderate Wound Drainage Odor: None/Absent Tissue Surrounding Wound: Erythemic Wound General Appearance: Draining, Necrotic Wound Assessment #3: Wound Number: 3 Wound Present on Admission: Yes New Wound: No Status Change of Wound: No Wound Location Body Site Modif: mid Wound Location Body Site: sacral Wound Type: pressure ulcer Bruce Test: Does not Bruce Pressure Ulcer Stage: III - scattered Wound Thickness: Full Thickness Wound Length: 4.0 Wound Width: 3.0 Wound Depth: less than 0.1 Percent of Wound Curtis/Red: 100 Wound Drainage Description: Curtis Wound Drainage Amount: Scant Wound Drainage Odor: None/Absent Tissue Surrounding Wound: Erythemic Wound General Appearance: Reddened, Draining Wound Assessment #4: Wound Number: 4 Wound Present on Admission: Yes New Wound: No Status Change of Wound: No Wound Location Body Site Modif: right, lateral Wound Location Body Site: malleolus/ankle Wound Type: pressure ulcer Bruce Test: Does not Bruce Pressure Ulcer Stage: deep tissue injury Wound Thickness: Full Thickness Wound Length: 3.5 Wound Width: 2.0 Wound Depth: utd Percent of Wound Purple/Maroon: 100 Wound Drainage Amount: None Wound Drainage Odor: None/Absent Tissue Surrounding Wound: Intact Wound General Appearance: Asymptomatic Wound Assessment #5: Wound Number: 100 Wound Present on Admission: Yes New Wound: No Status Change of Wound: No Wound Location Body Site Modif: left, anterior Wound Location Body Site: knee Wound Type: traumatic injury Bruce Test: Does not Bruce Traumatic Injury Wounds: Skin Tear Wound Thickness: Partial Thickness Wound Length: 0.4 Wound Width: 0.4 Wound Depth: less than 0.1 Percent of Wound Curtis/Red: 100 Wound Drainage Description: Serosanguineous Wound Drainage Amount: Scant Wound Drainage Odor: None/Absent Tissue Surrounding Wound: Erythemic Wound General Appearance: Reddened, Draining Wound Comment #1 Left heel unstageable pressure ulcer. Noted increase in size and with 100% yellow slough. will change treatment to Therahoney gel daily. #2 Sacral scattered stage III pressure ulcer. No deterioration noted. wound bed with granulating tissue 100% beefy red. #3 Right lateral malleolus DTI pressure ulcer. Still intact #4 Right heel DTI pressure ulcer. Still intact #5 Left anterior knee skin tear with partial skin loss. local wound care per protocol for skin tear with no flap. Recommendation -Keep clean and dry -Turn and reposition -Optimize nutrition -Offload both heels -Low air loss mattress -Heel protector on both heels -Assess and f/u accordingly for any changes ROLANDO CLIFFORD RN Apr 01, 2017 10:45
[2017-04-01 11:24] VITALS: BP 105/56
--- NOTE | 2017-04-01 15:27 | General Progress Note ---
Assessment/Plan Status: stable - from renal stand Assessment/Plan - Acute Renal Failure- Cr lower - Dislodged gastrostomy tube - UTI (urinary tract infection), with severe leukocytosis, high Lactic acid - h/o Seizure - Dementia - Sepsis, WBCs lowering - COPD (chronic obstructive pulmonary disease) - Cachexia - High Troponin Plan: Keep BP above 100 Avoid Nephrotoxics Monitor renal parameters Per consultants stable from renal stand for DC Subjective ROS Limited/Unobtainable: Yes Allergies: Coded Allergies: No Known Allergies (Verified , 09/26/12) Objective Last 24 Hour Vital Signs Date Time Temp Pulse Resp B/P (MAP) Pulse Ox O2 Delivery O2 Flow Rate FiO2 04/01/17 11:24 97.2 83 21 105/56 95 Nasal Cannula 2.0 04/01/17 10:40 97.5 04/01/17 08:04 97.5 95 21 125/100 95 Nasal Cannula 2.0 04/01/17 04:55 96.5 101 20 131/100 91 Nasal Cannula 03/31/17 23:55 96.8 83 20 132/67 97 Nasal Cannula 03/31/17 20:04 98 Nasal Cannula 2.0 28 03/31/17 20:04 Nasal Cannula 2.0 28 03/31/17 19:53 97.7 85 20 130/69 97 Nasal Cannula 03/31/17 16:00 97.3 81 20 143/80 95 Nasal Cannula 3.0 03/31/17 16:00 97.3 92 20 141/73 96 Room Air Intake and Output 04/01/17 04/02/17 19:00 07:00 Intake Total 0 ml Output Total 400 ml Balance -400 ml Intake Oral 0 ml Output Urine Total 400 ml Laboratory Tests 04/01/17 08:20: White Blood Count 12.1H, Red Blood Count 3.69L, Hemoglobin 11.3L, Hematocrit 33.7L, Mean Corpuscular Volume 91, Mean Corpuscular Hemoglobin 30.8, Mean Corpuscular Hemoglobin Concent 33.7, Red Cell Distribution Width 16.3H, Platelet Count 161, Mean Platelet Volume 11.5H, Neutrophils (%) (Auto) 73.9, Lymphocytes (%) (Auto) 13.0L, Monocytes (%) (Auto) 8.3, Eosinophils (%) (Auto) 4.1H, Basophils (%) (Auto) 0.7, Sodium Level 144, Potassium Level 4.2, Chloride Level 105, Carbon Dioxide Level 34H, Anion Gap 5, Blood Urea Nitrogen 25H, Creatinine 0.6L, Estimat Glomerular Filtration Rate , Glucose Level 157H, Calcium Level 8.5L Height (Feet): 5 Height (Inches): 5.00 Weight (Pounds): 174 General Appearance: no apparent distress Cardiovascular: tachycardia Respiratory/Chest: decreased breath sounds Abdomen: soft Objective PE unchanged FAITH SEARS Apr 01, 2017 15:27
--- NOTE | 2017-04-01 15:53 | Infectious Diseases Prog Note ---
Assessment/Plan Problems: (1) UTI (urinary tract infection) Assessment & Plan: due to Citrobacter freundii and pseudomonas aeruginosa , improving on meropenem. will treat for 14 days . EOT 04/08/17 (2) Sepsis Assessment & Plan: improved on meropenem and clindamycin . will treat for two weeks with meropenem, stop clindamycin . EOT 04/08/17 (3) ATN (acute tubular necrosis) Assessment & Plan: improving , suspect due to sepsis, continue hydration, monitor UOP, renal is following (4) Suprapubic catheter Assessment & Plan: continue local care (5) Gross hematuria Assessment & Plan: no evidence of stone or tumor on renal US, only showed cysts , improved . Subjective ROS Limited/Unobtainable: Yes Allergies: Coded Allergies: No Known Allergies (Verified , 09/26/12) Subjective unresponsive, lying in bed. afebrile Objective Vital Signs Last 24 Hour Vital Signs Date Time Temp Pulse Resp B/P (MAP) Pulse Ox O2 Delivery O2 Flow Rate FiO2 04/01/17 11:24 97.2 83 21 105/56 95 Nasal Cannula 2.0 04/01/17 10:40 97.5 04/01/17 08:04 97.5 95 21 125/100 95 Nasal Cannula 2.0 04/01/17 04:55 96.5 101 20 131/100 91 Nasal Cannula 03/31/17 23:55 96.8 83 20 132/67 97 Nasal Cannula 03/31/17 20:04 98 Nasal Cannula 2.0 28 03/31/17 20:04 Nasal Cannula 2.0 28 03/31/17 19:53 97.7 85 20 130/69 97 Nasal Cannula 03/31/17 16:00 97.3 81 20 143/80 95 Nasal Cannula 3.0 03/31/17 16:00 97.3 92 20 141/73 96 Room Air Height (Feet): 5 Height (Inches): 5.00 Weight (Pounds): 174 General Appearance: WD/WN, no acute distress HEENT: normocephalic, atraumatic, anicteric, mucous membranes moist, pharynx normal, supple, no JVD Respiratory/Chest: chest wall non-tender, normal breath sounds, no respiratory distress, no accessory muscle use, decreased breath sounds, crackles/rales Cardiovascular: normal peripheral pulses, normal rate, regular rhythm, no gallop/murmur, no JVD Abdomen: normal bowel sounds, soft, non tender, no organomegaly, non distended , no mass, no scars Extremities: no cyanosis, no clubbing Skin: no rash, no lesions, ulcers Laboratory Tests Test 04/01/17 08:20 White Blood Count 12.1 K/UL (4.8-10.8) H Red Blood Count 3.69 M/UL (4.70-6.10) L Hemoglobin 11.3 G/DL (14.2-18.0) L Hematocrit 33.7 % (42.0-52.0) L Mean Corpuscular Volume 91 FL (80-99) Mean Corpuscular Hemoglobin 30.8 PG (27.0-31.0) Mean Corpuscular Hemoglobin Concent 33.7 G/DL (32.0-36.0) Red Cell Distribution Width 16.3 % (11.6-14.8) H Platelet Count 161 K/UL (150-450) Mean Platelet Volume 11.5 FL (6.5-10.1) H Neutrophils (%) (Auto) 73.9 % (45.0-75.0) Lymphocytes (%) (Auto) 13.0 % (20.0-45.0) L Monocytes (%) (Auto) 8.3 % (1.0-10.0) Eosinophils (%) (Auto) 4.1 % (0.0-3.0) H Basophils (%) (Auto) 0.7 % (0.0-2.0) Sodium Level 144 mEQ/L (135-145) Potassium Level 4.2 mEQ/L (3.4-4.9) Chloride Level 105 mEQ/L (98-107) Carbon Dioxide Level 34 mEQ/L (20-30) H Anion Gap 5 (5-15) Blood Urea Nitrogen 25 mg/dL (7-23) H Creatinine 0.6 mg/dL (0.7-1.2) L Estimat Glomerular Filtration Rate mL/min (>60) Glucose Level 157 mg/dL (74-106) H Calcium Level 8.5 mg/dL (8.6-10.2) L Current Medications Medications (Trade) Dose Ordered Sig/Matt Route PRN Reason Start Time Stop Time Status Last Admin Dose Admin Acetaminophen (Tylenol) 650 mg Q4H PRN ORAL Mild Pain (Pain Scale 1-3) 03/30/17 14:00 04/22/17 17:59 04/01/17 09:41 Acetaminophen (Tylenol) 650 mg Q4H PRN ORAL T>100.5 03/30/17 14:15 04/22/17 10:14 Albuterol/ Ipratropium (DuoNeb 0.5-3(2.5)mg/3ml) 3 ml Q4H PRN HHN Shortness of Breath 03/30/17 14:00 04/03/17 13:59 Chlorhexidine Gluconate (Mrai-Hex 2%) 1 applic QHS TOPIC 03/30/17 21:00 04/22/17 20:59 03/31/17 20:24 Clonidine HCl (Catapres) 0.1 mg Q4H PRN ORAL SBP > 160 mmHg 03/30/17 14:00 04/22/17 17:59 Lansoprazole (Prevacid) 30 mg DAILY ORAL 03/31/17 09:00 04/23/17 08:59 04/01/17 09:37 Meropenem 1 gm/ Sodium Chloride 110 ml @ 220 mls/hr Q8HR IVPB 03/30/17 14:00 04/08/17 23:59 04/01/17 14:06 Midodrine (Pro-Amatine) 10 mg THREE TIMES A DAY GT 03/31/17 18:00 04/30/17 17:59 04/01/17 14:07 Ondansetron HCl (Zofran) 4 mg Q6H PRN IVP Nausea & Vomiting 03/30/17 14:30 04/22/17 14:29 Polyethylene Glycol (Miralax) 17 gm DAILYPRN PRN ORAL Constipation 03/30/17 14:30 04/29/17 14:29 Jose Juarez M.D. Apr 01, 2017 15:53
--- NOTE | 2017-04-01 15:54 | Pulmonology Progress Note ---
Assessment/Plan Problems: (1) Septic shock (2) ATN (acute tubular necrosis) (3) Suprapubic catheter (4) Gross hematuria (5) Prostate cancer (6) Cachexia (7) COPD (chronic obstructive pulmonary disease) (8) Dementia Assessment/Plan improving respiratory treatment IV abx check electrolytes dvt prophylaxis med/surg Subjective ROS Limited/Unobtainable: No Constitutional: Reports: no symptoms HEENT: Repors: no symptoms Allergies: Coded Allergies: No Known Allergies (Verified , 09/26/12) Objective Last 24 Hour Vital Signs Date Time Temp Pulse Resp B/P (MAP) Pulse Ox O2 Delivery O2 Flow Rate FiO2 04/01/17 11:24 97.2 83 21 105/56 95 Nasal Cannula 2.0 04/01/17 10:40 97.5 04/01/17 08:04 97.5 95 21 125/100 95 Nasal Cannula 2.0 04/01/17 04:55 96.5 101 20 131/100 91 Nasal Cannula 03/31/17 23:55 96.8 83 20 132/67 97 Nasal Cannula 03/31/17 20:04 98 Nasal Cannula 2.0 28 03/31/17 20:04 Nasal Cannula 2.0 28 03/31/17 19:53 97.7 85 20 130/69 97 Nasal Cannula 03/31/17 16:00 97.3 81 20 143/80 95 Nasal Cannula 3.0 03/31/17 16:00 97.3 92 20 141/73 96 Room Air Intake and Output 04/01/17 04/02/17 19:00 07:00 Intake Total 0 ml Output Total 400 ml Balance -400 ml Intake Oral 0 ml Output Urine Total 400 ml General Appearance: WD/WN HEENT: normocephalic, atraumatic Respiratory/Chest: chest wall non-tender, lungs clear Cardiovascular: normal peripheral pulses, normal rate Abdomen: normal bowel sounds, soft, non tender Extremities: no cyanosis, no clubbing Skin: no rash, no lesions Laboratory Tests 04/01/17 08:20: White Blood Count 12.1H, Red Blood Count 3.69L, Hemoglobin 11.3L, Hematocrit 33.7L, Mean Corpuscular Volume 91, Mean Corpuscular Hemoglobin 30.8, Mean Corpuscular Hemoglobin Concent 33.7, Red Cell Distribution Width 16.3H, Platelet Count 161, Mean Platelet Volume 11.5H, Neutrophils (%) (Auto) 73.9, Lymphocytes (%) (Auto) 13.0L, Monocytes (%) (Auto) 8.3, Eosinophils (%) (Auto) 4.1H, Basophils (%) (Auto) 0.7, Sodium Level 144, Potassium Level 4.2, Chloride Level 105, Carbon Dioxide Level 34H, Anion Gap 5, Blood Urea Nitrogen 25H, Creatinine 0.6L, Estimat Glomerular Filtration Rate , Glucose Level 157H, Calcium Level 8.5L Current Medications Medications (Trade) Dose Ordered Sig/Matt Route PRN Reason Start Time Stop Time Status Last Admin Dose Admin Acetaminophen (Tylenol) 650 mg Q4H PRN ORAL Mild Pain (Pain Scale 1-3) 03/30/17 14:00 04/22/17 17:59 04/01/17 09:41 Acetaminophen (Tylenol) 650 mg Q4H PRN ORAL T>100.5 03/30/17 14:15 04/22/17 10:14 Albuterol/ Ipratropium (DuoNeb 0.5-3(2.5)mg/3ml) 3 ml Q4H PRN HHN Shortness of Breath 03/30/17 14:00 04/03/17 13:59 Chlorhexidine Gluconate (Mari-Hex 2%) 1 applic QHS TOPIC 03/30/17 21:00 04/22/17 20:59 03/31/17 20:24 Clonidine HCl (Catapres) 0.1 mg Q4H PRN ORAL SBP > 160 mmHg 03/30/17 14:00 04/22/17 17:59 Lansoprazole (Prevacid) 30 mg DAILY ORAL 03/31/17 09:00 04/23/17 08:59 04/01/17 09:37 Meropenem 1 gm/ Sodium Chloride 110 ml @ 220 mls/hr Q8HR IVPB 03/30/17 14:00 04/08/17 23:59 04/01/17 14:06 Midodrine (Pro-Amatine) 10 mg THREE TIMES A DAY GT 03/31/17 18:00 04/30/17 17:59 04/01/17 14:07 Ondansetron HCl (Zofran) 4 mg Q6H PRN IVP Nausea & Vomiting 03/30/17 14:30 04/22/17 14:29 Polyethylene Glycol (Miralax) 17 gm DAILYPRN PRN ORAL Constipation 03/30/17 14:30 04/29/17 14:29 VERITO QUEZADA Apr 01, 2017 15:54
[2017-04-01] MEDS ORDERED: NS 275ml ONE (15:59)
[2017-04-01] MEDS ORDERED: D5W 550ml IV ONE (15:59)
--- NOTE | 2017-04-02 08:55 | General Progress Note ---
Assessment/Plan Assessment/Plan ASSESSMENT: #. Leukocytosis with left shift. Likely was 2/2 to infection since has improved , is on abx --> WBC count critical value, on antibiotic IV. Continues to improve. #. Elevated PSA of 126, any PSA of >50 almost certainly represents prostate cancer -->would not treat at the moment given poor performance status, hospice eval # Anemia --> work up reviewed. Ferritin elevated, tibc low, no evidence of iron or b12 deficiency #. Elevated CEA of >20, agree if not a treatment candidate at this moment #. Acute renal insufficiency. --> dehydration improved #. Transaminitis. #. Bilirubinemia. #. Encephalopathy. #. G-tube replacement Subjective Date patient seen: Apr 01, 2017 Constitutional: Reports: no symptoms HEENT: Reports: no symptoms Cardiovascular: Reports: no symptoms Respiratory: Reports: no symptoms Gastrointestinal/Abdominal: Reports: no symptoms Genitourinary: Reports: no symptoms Neurologic/Psychiatric: Reports: no symptoms Endocrine: Reports: no symptoms Hematologic/Lymphatic: Reports: no symptoms Allergies: Coded Allergies: No Known Allergies (Verified , 09/26/12) Subjective no events overnight Objective Last 24 Hour Vital Signs Date Time Temp Pulse Resp B/P (MAP) Pulse Ox O2 Delivery O2 Flow Rate FiO2 04/01/17 11:24 97.2 83 21 105/56 95 Nasal Cannula 2.0 04/01/17 10:40 97.5 Height (Feet): 5 Height (Inches): 5.00 Weight (Pounds): 174 General Appearance: no apparent distress EENT: TMs normal Neck: normal alignment Abdomen: normal bowel sounds Edema: no edema noted Pedal (L), no edema noted Pedal (R) Jose Luis Rendon Apr 02, 2017 08:54
--- NOTE | 2017-04-02 19:51 | Discharge Summary ---
Discharge Summary Hospital Course Date of Admission Mar 22, 2017 at 18:37 Date of Discharge Apr 01, 2017 at 16:00 Admitting Diagnosis sepsis HPI Elias Botello is a 76 year old male who was admitted on Mar 22, 2017 at 18:37 for Sepsis Hospital Course [id number] Discharge Discharge Disposition Patient was discharged to SNF/Subacute Facility(03) Discharge Diagnoses: Licha Garduno NP Apr 02, 2017 19:51
--- NOTE | 2017-04-03 05:15 | Discharge Summary 2 SIG ---
DATE OF ADMISSION: 03/22/2017 DATE OF DISCHARGE: 04/01/2017 CONSULTANTS: 1. Jeremie Brooks M.D. 2. Steven Rendon M.D. 3. George Sanchez M.D. 4. Pablo Joya M.D. 5. Jose Juarez M.D. 6. Juan Alberto Herring M.D. BRIEF HOSPITAL COURSE: The patient is a 76-year-old male from [facility], was brought in by EMS for concerns of fever and sepsis. On arrival to ED, the patient was tachycardic, temperature was 102, and UA was grossly infected. He was started on empiric antibiotics. Chest x-ray was negative for pneumonia. He was admitted to telemetry for sepsis and was started empirically on cefepime. The patient had a right heel wound with possible infection and underlying osteomyelitis. Clindamycin was added to his regimen. He also came in with elevated creatinine. The patient had dehydration and had acute renal failure. The patient developed hypotension and needed to be transferred to ICU and was started on IV pressors. Triple-lumen central line was inserted on the right internal jugular. The patient was transferred with Lamar catheter, however Lamar got dislodged and had hematuria. Urologist was consulted, unable to place urethral Lamar to irrigate. A 12-German suprapubic tube was placed at bedside under sterile conditions, and there was immediate evacuation of 200 mL of dark yellow urine and foul-smelling. Urine culture showed growth of Citrobacter and clinically, the patient was not improving on cefepime and clindamycin. Antibiotics were switched to Zosyn and Levaquin. G-tube was also dislodged and G-tube was changed at bedside. He had severe leukocytosis. Urine culture showed growth of Citrobacter and Pseudomonas. Antibiotic was switched to meropenem and was improving with meropenem and clindamycin. Renal ultrasound done showed no evidence of stone or tumor. Renal function improved with hydration. Echocardiogram done showed ejection fraction 55% to 60% with no evidence of left ventricular hypertrophy. He also had episode of elevated troponin possibly due to combination of acute kidney injury and hypotension, however cannot exclude non-ST elevated myocardial infarction secondary to demand ischemia. The patient is not suitable for ischemic workup given overall condition and underlying mental status. A 12-lead EKG did not show any ST to T-wave changes and echocardiogram did not show any wall motion abnormalities. He was recommended to continue with medical treatment. He was continued on tube feedings. LFTs improved. Septic shock resolved. He came in with multiple pressure ulcers. Wound care was rendered. He was eventually discharged to SNF. FINAL DIAGNOSES: 1. Sepsis with septic shock. 2. Urinary tract infection due to Citrobacter and Pseudomonas. 3. Acute kidney injury with acute tubular necrosis. 4. Status post suprapubic catheter secondary to gross hematuria. 5. Dislodged G-tube, status post bedside replacement. 6. Dementia. 7. Chronic obstructive pulmonary disease. 8. Elevated troponin, possible from acute kidney injury and hypotension, cannot exclude non ST-elevated myocardial infarction. 9. Possible prostate cancer. 10. Elevated liver transaminases. 11. Encephalopathy 12. Dementia. 13. Dehydration. 14. Multiple decubitus pressure ulcer present on admission. DISPOSITION: The patient was discharged to [facility]. DISCHARGE MEDICATIONS: Refer to med list. Sary Oakes M.D. I have been assigned to dictate discharge summary on this account and I was not involved in the patient's management. Licha Garduno N.P. DR: JEN JOB#: [id number] CC: SANTOSH
== END 2017-04-01 16:00 | DRG 871 ==
LOC: EDBD 17:18 → EMR 18:36 → 2E 18:37 → EDBEDREQ 18:42 → 2E 20:35 → ICU 03-23 04:45 → 2W 03-26 17:31 → 4E 03-30 13:34
PROC: B543ZZA Ultrasonography of Right Jugular Veins, Guidance (ICD-10-PCS; principal; 2017-03-23)
PROC: 0D20XUZ Change Feeding Device in Upper Intestinal Tract, External Approach (ICD-10-PCS; principal; 2017-03-23)
PROC: 05HM33Z Insertion of Infusion Device into Right Internal Jugular Vein, Percutaneous Approach (ICD-10-PCS; principal; 2017-03-23)
PROC: 0T9B30Z Drainage of Bladder with Drainage Device, Percutaneous Approach (ICD-10-PCS; 2017-03-25)
PROC: B548ZZA Ultrasonography of Superior Vena Cava, Guidance (ICD-10-PCS; 2017-03-26)
PROC: 02HV33Z Insertion of Infusion Device into Superior Vena Cava, Percutaneous Approach (ICD-10-PCS; 2017-03-26)
DX: A41.9 Sepsis, unspecified organism (principal); L89.153 Pressure ulcer of sacral region, stage 3; I21.4 Non-ST elevation (NSTEMI) myocardial infarction; K72.00 Acute and subacute hepatic failure without coma; N17.0 Acute kidney failure with tubular necrosis; J96.01 Acute respiratory failure with hypoxia; G93.40 Encephalopathy, unspecified; E86.0 Dehydration; R13.10 Dysphagia, unspecified; R65.21 Severe sepsis with septic shock; R64 Cachexia; N39.0 Urinary tract infection, site not specified; J44.1 Chronic obstructive pulmonary disease with (acute) exacerbation; L03.311 Cellulitis of abdominal wall; L89.620 Pressure ulcer of left heel, unstageable; Z68.24 Body mass index [BMI] 24.0-24.9, adult; R33.9 Retention of urine, unspecified; G30.9 Alzheimer's disease, unspecified; F02.80 Dementia in other diseases classified elsewhere, unspecified severity, without behavioral disturbance, psychotic disturbance, mood disturbance, and anxiety; I10 Essential (primary) hypertension; E78.5 Hyperlipidemia, unspecified; R31.0 Gross hematuria; G40.909 Epilepsy, unspecified, not intractable, without status epilepticus; I25.10 Atherosclerotic heart disease of native coronary artery without angina pectoris; D75.1 Secondary polycythemia; Z86.73 Personal history of transient ischemic attack (TIA), and cerebral infarction without residual deficits; R62.7 Adult failure to thrive; C61 Malignant neoplasm of prostate
CPT/HCPCS: 36415; 36569; 36600; 71010; 76700; 76775; 76937; 80048; 80053; 80061; 81001; 81003; 82140; 82248; 82378; 82550; 82553; 82607; 82728; 82803; 82962; 82977; 83036; 83540; 83550; 83605; 83615; 83735; 83880; 84100; 84133; 84153; 84300; 84484; 84550; 85007; 85025; 85651; 86140; 87040; 87070; 87081; 87086; 87181; 87205; 87324; 89050; 93005; 93306; 93970; 94760; 99285; S0077

== ENCOUNTER 2017-04-26 11:20 | Inpatient (IN) | payer MEDICARE, MEDICAID ==
[~2017-04-26] VITALS: Ht 177.8 cm; Wt 89.8 kg
[~2017-04-26 11:20] MED LIST changes: +ARTIFICIAL TEAR15 ML BOTH EYES; +DULCOLAX10 MG RC; +ENEMA133 M1 RC; +HEPARIN SO5000 UNIT2 SUBQ; +HYDRALAZINE HCL10 MG ORAL; +LIPITOR40 MG GT; +MEROPENEM-1 GM/50 ML IV; +MILK OF MA400 MG/51 GT; +MILK OF MA400 MG/51 ORAL; +MULTI-DELYN237 ML GT; +SENNA8.6 M2 GT; +SENOKOT8.6 MG GT; +TYLENOL650 MG/20. GT; +VITAMIN C500 M1 GT; +VITAMIN C500 MG/11 GT
[2017-04-26 15:49] VITALS: BP 129/72
[2017-04-26] MEDS ORDERED: Miralax 17gm pkt ORAL PRN (17:00)
--- NOTE | 2017-04-26 17:04 | Infectious Diseases Prog Note ---
Assessment/Plan Problems: (1) Sepsis Assessment & Plan: with fever and leukocytosis, PNA VS UTI , will send blood culture, start vancomycin and zosyn empirically (2) Catheter-associated urinary tract infection Assessment & Plan: with skin cellulitis , will send urine culture and start zosyn empirically (3) GI (gastrointestinal bleed) Assessment & Plan: monitor H/H, transfuse blood as needed. GI is following (4) Suprapubic catheter Assessment & Plan: continue local care and dressing change Subjective Allergies: Coded Allergies: No Known Allergies (Verified , 09/26/12) Jose Juarez M.D. Apr 26, 2017 17:04
[2017-04-26] MEDS ORDERED: Acetaminophen 650mg/20.3ml GT PRN (18:00)
[2017-04-26] MEDS: Midodrine 10mg tab GT SCH (18:00)
[2017-04-26 18:37] LABS: BASOPHILS % (AUTO) 0.7 % (0.0-2.0); EOSINOPHILS % (AUTO) 3.5 % (0.0-3.0); MEAN CORPUSCULAR HEMOGLOBIN 28.1 PG (27.0-31.0); MEAN CORPUSCULAR HGB CONC 30.8 G/DL (32.0-36.0); MEAN CORPUSCULAR VOLUME 91 FL (80-99); MONOCYTES % (AUTO) 6.2 % (1.0-10.0); NEUTROPHILS % (AUTO) 72.6 % (45.0-75.0); PLATELET COUNT 298 K/UL (150-450); RED BLOOD COUNT 3.89 M/UL (4.70-6.10); RED CELL DISTRIBUTION WIDTH 15.1 % (11.6-14.8); WHITE BLOOD COUNT 12.4 K/UL (4.8-10.8)
[2017-04-26 18:38] LABS: PROTHROMBIN TIME 10.4 SEC (9.30-11.50)
[2017-04-26 18:44] LABS: ALANINE AMINOTRANSFERASE 8 U/L (3-41); ALBUMIN/GLOBULIN RATIO 0.8 (1.0-2.7); ANION GAP 11 (5-15); ASPARTATE AMINO TRANSFERASE 11 U/L (5-40); CALCIUM 9.7 mg/dL (8.6-10.2); CARBON DIOXIDE 30 mEQ/L (20-30); CHLORIDE 98 mEQ/L (98-107); CREATININE 0.7 mg/dL (0.7-1.2); HEMOLYSIS 1; POTASSIUM 4.3 mEQ/L (3.4-4.9); SODIUM 139 mEQ/L (135-145); TOTAL PROTEIN 7.3 g/dL (6.6-8.7)
[2017-04-26] MEDS: Piperacillin/Tazobactam 3.375 GM in D5W 110 ML IVPB SCH (18:44)
[2017-04-26 20:00] VITALS: BP 122/79
[2017-04-26 20:55] LABS: APPEARANCE,URINE CLEAR; KETONES,URINE NEGATIVE (NEGATIVE); LEUKOCYTE ESTERASE ,URINE 3+ (NEGATIVE); NITRITE,URINE NEGATIVE (NEGATIVE); PH,URINE 8 (4.5-8.0); PROTEIN,URINE 2+ (NEGATIVE); UROBILINOGEN,URINE NORMAL MG/DL (0.0-1.0)
[2017-04-26 21:33] LABS: AMORPHOUS SEDIMENT,UR MODERATE /LPF; BACTERIA,URINE MANY /HPF; RBC,URINE 15-20 /HPF (0 - 0)
[2017-04-26] MEDS ORDERED: Vancomycin 1.5 GM/D5W 250ML IVPB ONE (22:30)
[2017-04-27] VITALS: BP 137/74
[2017-04-27 04:00] VITALS: BP 129/78
[2017-04-27] MEDS: Piperacillin/Tazobactam 3.375 GM in D5W 110 ML IVPB SCH ×3 (06:00→22:03)
[2017-04-27 08:00] VITALS: BP 137/79
--- NOTE | 2017-04-27 08:31 | History and Physical Report ---
DATE OF ADMISSION: 04/26/2017 History Of Present Illness: The patient is transferred from [place] emergency room was admitted to telemetry floor for gastrointestinal bleed as well as sepsis with leukocytosis. The patient also has erythema around the suprapubic catheter and also has productive cough, . The patient is a poor historian and cannot provide any history. I cannot obtain any history from the patient. Past Medical History: Urinary retention, suprapubic catheter, extreme hypotension, history of constipation, history of advanced dementia, hypertension, constipation, seizure disorder, history of prostate cancer, anemia, elevated LFTs, history of GI bleed, history of COPD and depression, hyponatremia, and dehydration. PAST SURGICAL HISTORY: Suprapubic catheter and PEG. Medications: Norvasc, aspirin, Lipitor, heparin, benazepril, hydralazine, Namenda, multivitamin, and Senokot. ALLERGIES: No known allergies. SOCIAL HISTORY: Unable to obtain. FAMILY HISTORY: Noncontributory. REVIEW OF SYSTEMS: Unable to obtain. PHYSICAL EXAMINATION: Vital Signs: Temperature is 97.7 degrees, pulse is 88, and blood pressure is 139/72. HEENT: PERRLA. NECK: Supple. No lymphadenopathy. CHEST: Clear to auscultation. Gastrointestinal: Soft, nontender, and nondistended. No organomegaly. There is erythema around the suprapubic catheter. G-tube site is intact. Extremities: The patient has contractures. For the skin integrity report, please refer to the nursing notes Neurologic: Oriented x0. Does respond to tactile stimuli. Does not follow neurologic exam which is his baseline. Laboratory Data: Labs showed WBC of 12.4, hemoglobin 10.9, and platelets of 294,000. Sodium 139, potassium 4.2, BUN of 33, creatinine 0.7, and glucose of 134. BNP of . ASSESSMENT AND PLAN: 1. Leukocytosis, sepsis, and erythema around the suprapubic catheter. I have asked Dr. Juarez to see the patient for that reason and possible urinary tract infection. 2. The patient has gastrointestinal bleed. I have asked Dr. Almonte to see the patient for the possible colonoscopy and for the suprapubic erythema, I have consulted Dr. will see the patient for possibility of exchange of suprapubic catheter if needed, that will be his decision. 3. For elevated BNP, I have asked Dr. Sanchez to see the patient. 4. For anemia, I have asked Dr. Rendon to see the patient for that reason. Sary Oakes M.D. DR: HEAVEN JOB#: [id number] CC:
--- NOTE | 2017-04-27 08:32 | Consultation ---
DATE OF CONSULTATION: 04/26/2017 HEMATOLOGY/ONCOLOGY CONSULTATION REQUESTING PHYSICIAN: Sary Oakes M.D. Reason For Consultation: Evaluation of anemia and gastrointestinal bleed. IDENTIFYING DATA: Dear Dr. Oakes, The patient is a pleasant 76-year-old male with past medical history which is significant for suprapubic catheter placement. At this time, he was transferred to [facility] with GI bleed, placed on antibiotics as well as antacid, and potential evaluation by GI service and ID. Past Medical History: The patient recently admitted with sepsis and I have seen the patient back in March of 2017 with elevated PSA of 126. Addition, the patient likely is not a good candidate for chemotherapy and/or other treatments, elevated CEA as well noted in the past. PAST SURGICAL HISTORY: Reviewed. Medications: Prilosec, dextrose, Tylenol, morphine, lorazepam, Zofran, clonidine, . ALLERGIES: No known drug allergies. SOCIAL HISTORY: No alcohol, tobacco, or illicit drug use. FAMILY HISTORY: Noncontributory. REVIEW OF SYSTEMS: Unobtainable given the patent's mental status. PHYSICAL EXAMINATION: GENERAL: No distress. VITAL SIGNS: Reviewed. PULMONARY: Decreased breath sounds. No crackles noted. . CARDIOVASCULAR: Regular rate. No S3 or S4. ABDOMEN: Soft, nontender, and nondistended. EXTREMITIES: No cyanosis, clubbing, or edema. Laboratory And Diagnostic Data: WBC 12.4, hemoglobin 10.9 and hematocrit 36 and platelet 198,000. ASSESSMENT AND RECOMMENDATIONS: 1. Anemia secondary to gastrointestinal bleed, likely evaluation as per gastrointestinal service. Anemia workup has been ordered. 2. Leukocytosis with left shift noted in the past. Continue to closely monitor. 3. Elevated CEA greater than 20, is not on treatment at this time. He does have a history of colon cancer. 4. Elevated PSA of 126 in the past, likely represents prostate cancer given . Recommend Hospice given his medical treatment. 5. Transaminitis. 6. Hyperbilirubinemia. 7. Encephalopathy. 8. Gastrostomy tube placement. 9. . Jose Luis Rendon M.D. DR: REZA JOB#: [id number] CC:
[2017-04-27] MEDS: Vancomycin 750mg/NS 250ml IVPB SCH ×2 (08:39→20:52)
[2017-04-27] MEDS: Midodrine 10mg tab GT SCH ×3 (08:40→17:39)
[2017-04-27 09:00] LABS: PSA TOTAL 5.6 ng/mL (< 4.5); THYROID STIMULATING HORMONE 0.97 uIU/mL (0.300-4.500)
[2017-04-27 09:14] LABS: URIC ACID 3.3 mg/dL (3.0-7.5)
[2017-04-27 10:05] LABS: BASOPHILS % (AUTO) 0.8 % (0.0-2.0); EOSINOPHILS % (AUTO) 6.5 % (0.0-3.0); LYMPHOCYTES % (AUTO) 15.3 % (20.0-45.0); MEAN CORPUSCULAR HEMOGLOBIN 29.2 PG (27.0-31.0); MEAN CORPUSCULAR HGB CONC 32.6 G/DL (32.0-36.0); MEAN CORPUSCULAR VOLUME 89 FL (80-99); MEAN PLATELET VOLUME 7.9 FL (6.5-10.1); MONOCYTES % (AUTO) 6.8 % (1.0-10.0); NEUTROPHILS % (AUTO) 70.6 % (45.0-75.0); PLATELET COUNT 299 K/UL (150-450); RED CELL DISTRIBUTION WIDTH 15.1 % (11.6-14.8); WHITE BLOOD COUNT 9.5 K/UL (4.8-10.8)
[2017-04-27 10:22] LABS: RETICULOCYTE COUNT 0.8 % (0.0-2.0)
[2017-04-27 10:46] LABS: BAND NEUTROPHILS % (MANUAL) 0 % (0-8); BASOPHILS % (MANUAL) 1 % (0-2); EOSINOPHILS % (MANUAL) 8 % (0-3); LYMPHOCYTES % (MANUAL) 14 % (20-45); NEUTROPHILS % (MANUAL) 73 % (45-75); PLATELET ESTIMATE ADEQUATE; PLATELET MORPHOLOGY NORMAL; TOTAL CELLS COUNTED 100
[2017-04-27 10:47] LABS: ANISOCYTOSIS 1+
[2017-04-27 10:58] LABS: PATH BLOOD SMEAR/OMC SENT TO PATHOLOGIST
--- NOTE | 2017-04-27 11:51 | Diagnostic Imaging Report ---
Indication: Dyspnea Comparison: 03/30/17 A single view chest radiograph was obtained. Findings: The bones are osteopenic. Lung volumes are low bilaterally with minimal basilar atelectasis. Heart size is normal. Impression: Basilar atelectasis
[2017-04-27 12:00] VITALS: BP 131/57
--- NOTE | 2017-04-27 15:23 | GI Initial Consult Note ---
Araceli Sandyh Floyd N.P. 04/27/17 1523: History of Present Illness General Date patient seen: Apr 27, 2017 Time patient seen: 13:00 Reason for Hospitalization: GI BLEED Referring physician: SHERON HAINES Reason for Consultation: GI BLEED Present Illness HPI The patient is transferred from [place] emergency room was admitted to telemetry floor for gastrointestinal bleed as well as sepsis with leukocytosis. The patient also has erythema around the suprapubic catheter and also has productive cough. No addition history can be obtained from the patient. GI consult for GI bleed. HPI as noted above. ROS limited. Pt seen on floor, awake NAD with no active s/sx of N/V/D noted with PEG. Presents today with leukocytosis and anemia. Unknown time of history of endoscopic procedures. Home Meds Reported Medications Meropenem-0.9% Sodium Chloride (Meropenem-0.9% NaCl 1 Gram/50) 1 Gm/50 Ml Piggyback, 1 GM IV EVERY 8 HOURS for 10 Days, BAG 04/01/17 Sennosides (Senokot) 8.6 Mg Tablet, 17.2 MG GT DAILY, TAB 03/22/17 Acetaminophen (Acetaminophen) 650 Mg/20.3 Ml Solution, 650 MG GT Q6H Y for Fever /Headache/Mild Pain, ML 0 Refills 03/22/17 Vit C/Ascorbate Ca/Ascorb Sod (VITAMIN C 500 MG/15 ML LIQUID) 500 Mg/15 Ml Liquid, 500 MG GT DAILY, ML 03/22/17 Multivitamin Liquid* (MULTI-DELYN*) 237 Ml Liquid, 15 ML GT DAILY, ML 03/22/17 Magnesium Hydroxide* (MILK OF MAGNESIA*) 400 Mg/5 Ml Oral.susp, 30 ML GT DAILY Y for Constipation, ML 03/22/17 Heparin Sod (Porcine) (HEPARIN SODIUM*) 5 000/1 Ml Vial, 5000 UNITS SUBQ EVERY 8 HOURS, VIAL 03/22/17 Na Phos,M-B/Na Phos,Di-Ba* (FLEET ENEMA*) 133 Ml Enema, 133 ML RECTAL DAILY Y for Constipation, ML 0 Refills 03/22/17 Bisacodyl (DULCOLAX) 10 Mg Supp.rect, 10 MG RC DAILY Y for Constipation, SUPP 03/22/17 Dextran 70/Hypromellose (ARTIFICIAL TEARS EYE DROPS*) 15 Ml Drops, 1 DROP BOTH EYES DAILY, #15 ML 0 Refills 03/22/17 Hydralazine Hcl* (HYDRALAZINE HCL*) 10 Mg Tablet, 10 MG ORAL EVERY 6 HOURS Y for For High Blood Pressure, TAB 03/22/17 Atorvastatin Calcium* (LIPITOR*) 40 Mg Tablet, 40 MG GT DAILY, TAB 03/22/17 Donepezil Hcl* (ARICEPT*) 10 Mg Tablet, 10 MG GT HS, #10 TAB Take 1 tablet by mouth every day. 06/09/12 Amlodipine Besylate (Norvasc) 5 Mg Tab, 5 MG GT DAILY, #10 TAB Take 1 tablet by mouth every day. 06/09/12 Memantine Hcl* (NAMENDA*) 10 Mg Tablet, 10 MG GT DAILY, #20 TAB Take one tablet by mouth twice a day 06/09/12 Aspirin (ASPIRIN) 81 Mg Tablet, 81 MG GT DAILY 06/09/12 Med list reviewed/reconciled: Yes Allergies: Coded Allergies: No Known Allergies (Verified , 09/26/12) Patient History Limited by: medical condition History Provided By: Medical Record [facility] Narrative Past Medical History: Urinary retention, suprapubic catheter, extreme hypotension, history of constipation, history of advanced dementia, hypertension, constipation, seizure disorder, history of prostate cancer, anemia , elevated LFTs, history of GI bleed, history of COPD and depression, hyponatremia, and dehydration. PAST SURGICAL HISTORY: Suprapubic catheter and PEG. Review of Systems All Other Systems: limited Physical Exam Vital Signs Date Time Temp Pulse Resp B/P (MAP) Pulse Ox O2 Delivery O2 Flow Rate FiO2 04/26/17 15:49 97.7 88 20 129/72 100 Nasal Cannula 2.0 Sp02 EP Interpretation: reviewed Labs Laboratory Tests Test 04/26/17 17:40 04/26/17 18:30 04/27/17 08:00 04/27/17 11:00 White Blood Count 12.4 K/UL (4.8-10.8) H 9.5 K/UL (4.8-10.8) Red Blood Count 3.89 M/UL (4.70-6.10) L 3.90 M/UL (4.70-6.10) L Hemoglobin 10.9 G/DL (14.2-18.0) L 11.4 G/DL (14.2-18.0) L Hematocrit 35.6 % (42.0-52.0) L 34.8 % (42.0-52.0) L Mean Corpuscular Volume 91 FL (80-99) 89 FL (80-99) Mean Corpuscular Hemoglobin 28.1 PG (27.0-31.0) 29.2 PG (27.0-31.0) Mean Corpuscular Hemoglobin Concent 30.8 G/DL (32.0-36.0) L 32.6 G/DL (32.0-36.0) Red Cell Distribution Width 15.1 % (11.6-14.8) H 15.1 % (11.6-14.8) H Platelet Count 298 K/UL (150-450) 299 K/UL (150-450) Mean Platelet Volume 8.0 FL (6.5-10.1) 7.9 FL (6.5-10.1) Neutrophils (%) (Auto) 72.6 % (45.0-75.0) 70.6 % (45.0-75.0) Lymphocytes (%) (Auto) 17.0 % (20.0-45.0) L 15.3 % (20.0-45.0) L Monocytes (%) (Auto) 6.2 % (1.0-10.0) 6.8 % (1.0-10.0) Eosinophils (%) (Auto) 3.5 % (0.0-3.0) H 6.5 % (0.0-3.0) H Basophils (%) (Auto) 0.7 % (0.0-2.0) 0.8 % (0.0-2.0) Prothrombin Time 10.4 SEC (9.30-11.50) Prothromb Time International Ratio 1.0 (0.9-1.1) Activated Partial Thromboplast Time 28 SEC (23-33) Sodium Level 139 mEQ/L (135-145) Potassium Level 4.3 mEQ/L (3.4-4.9) Chloride Level 98 mEQ/L (98-107) Carbon Dioxide Level 30 mEQ/L (20-30) Anion Gap 11 (5-15) Blood Urea Nitrogen 32 mg/dL (7-23) H Creatinine 0.7 mg/dL (0.7-1.2) Estimat Glomerular Filtration Rate mL/min (>60) Glucose Level 134 mg/dL (74-106) H Calcium Level 9.7 mg/dL (8.6-10.2) Total Bilirubin 0.6 mg/dL (0.0-1.2) Aspartate Amino Transf (AST/SGOT) 11 U/L (5-40) Alanine Aminotransferase (ALT/SGPT) 8 U/L (3-41) Alkaline Phosphatase 105 U/L (40-129) Pro-B-Type Natriuretic Peptide 643 pg/mL (0-450) H Total Protein 7.3 g/dL (6.6-8.7) Albumin 3.4 g/dL (3.5-5.2) L Globulin 3.9 g/dL Albumin/Globulin Ratio 0.8 (1.0-2.7) L Urine Color Pale yellow Urine Appearance Clear Urine pH 8 (4.5-8.0) Urine Specific [place] 1.010 (1.005-1.035) Urine Protein 2+ (NEGATIVE) H Urine Glucose (UA) Negative (NEGATIVE) Urine Ketones Negative (NEGATIVE) Urine Occult Blood 4+ (NEGATIVE) H Urine Nitrite Negative (NEGATIVE) Urine Bilirubin Negative (NEGATIVE) Urine Urobilinogen Normal MG/DL (0.0-1.0) Urine Leukocyte Esterase 3+ (NEGATIVE) H Urine RBC 15-20 /HPF (0 - 0) H Urine WBC 10-15 /HPF (0 - 0) H Urine Squamous Epithelial Cells None /LPF (NONE/OCC) Urine Amorphous Sediment Moderate /LPF (NONE) H Urine Bacteria Many /HPF (NONE) H Differential Total Cells Counted 100 Neutrophils % (Manual) 73 % (45-75) Lymphocytes % (Manual) 14 % (20-45) L Monocytes % (Manual) 4 % (1-10) Eosinophils % (Manual) 8 % (0-3) H Basophils % (Manual) 1 % (0-2) Band Neutrophils 0 % (0-8) Platelet Estimate Adequate Platelet Morphology Normal Anisocytosis 1+ Reticulocyte Count 0.8 % (0.0-2.0) Haptoglobin 384 mg/dL (30-200) H Uric Acid 3.3 mg/dL (3.0-7.5) Iron Level 32 ug/dL (59-158) L Total Iron Binding Capacity 237 ug/dL (250-400) L Percent Iron Saturation 14 % (15-50) L Unsaturated Iron Binding 205 ug/dL (112-346) Ferritin 140 ng/mL (10-230) Lactate Dehydrogenase 114 U/L (135-230) L Carcinoembryonic Antigen 3.2 ng/mL H CA 19-9 Antigen 16.95 U/mL (< 37) Prostate Specific Antigen 5.6 ng/mL (< 4.5) H Vitamin B12 Level 1302 pg/mL (211-946) H Thyroid Stimulating Hormone (TSH) 0.970 uIU/mL (0.300-4.500) Stool Occult Blood Positive (NEGATIVE) General Appearance: no apparent distress Head: normocephalic EENT: PERRL/EOMI, normal ENT inspection Neck: supple Respiratory: other - NC Cardiovascular: normal rate Gastrointestinal: gt - c/d/i Rectal: deferred Skin: normal color, no rash Lymphatic: normal inspection, no adenopathy Current Medications Current Medications Medications (Trade) Dose Ordered Sig/Matt Route PRN Reason Start Time Stop Time Status Last Admin Dose Admin Acetaminophen (Tylenol) 650 mg Q4H PRN GT Mild Pain/Temp > 100.5 04/26/17 18:00 05/26/17 17:59 Clonidine HCl (Catapres) 0.1 mg Q8H PRN GT SBP > 160 mmHg 04/26/17 17:00 05/26/17 16:59 Lansoprazole (Prevacid) 30 mg DAILY GT 04/27/17 09:00 05/27/17 08:59 04/27/17 08:39 Midodrine (Pro-Amatine) 10 mg THREE TIMES A DAY GT 04/26/17 18:00 05/26/17 17:59 04/27/17 12:55 Ondansetron HCl (Zofran) 4 mg Q6H PRN GT Nausea & Vomiting 04/26/17 17:00 05/26/17 16:59 Piperacillin Sod/ Tazobactam Sod 3.375 gm/Dextrose 110 ml @ 27.5 mls/hr EVERY 8 HOURS IVPB 04/26/17 18:30 05/01/17 18:29 04/27/17 13:13 Polyethylene Glycol (Miralax) 17 gm DAILYPRN PRN ORAL Constipation 04/26/17 17:00 05/26/17 16:59 Polyethylene Glycol/ Electrolytes (Nulytely) 4,000 ml ONCE ONCE ORAL 04/27/17 16:00 04/27/17 16:01 Sodium Phosphate (Fleet's Sodium Phosl Enema) 133 ml ONCE ONCE RECTAL 04/27/17 23:00 04/27/17 23:01 Vancomycin HCl (Vanco rx to dose) 1 ea DAILY PRN MISC Per rx protocol 04/26/17 17:00 05/26/17 16:59 Vancomycin/Sodium Chloride 250 ml @ 166.667 mls/hr Q12HR IVPB 04/27/17 09:00 05/02/17 08:59 04/27/17 08:39 GI: Plan Problems: (1) GI (gastrointestinal bleed) (2) G tube feedings (3) Anemia (4) Dementia Plan GT gastric lavage ordered r/o UGIB >> negative Per [facility], Kala Cliffordshannon @ [phone] is patients medical decision maker. - I spoke to Kala, states she is a friend but does not have legal authority to make decisions. - Patient has NO DPOA nor family, procedures must require 2 MD consent, defer colonoscopy for now given stable H&H and negative gastric lavage fu OB stool r/o GI bleed monitor H&H, prn transfusions cont PPI iron deficiency >> venofer x 1 fu labs [address] with Dr. Estrada. Thank you for referring this patient, we will follow. CLEVE ESTRADA 04/29/17 5937: History of Present Illness General Reason for Hospitalization: GI BLEED Present Illness Home Meds Reported Medications Meropenem-0.9% Sodium Chloride (Meropenem-0.9% NaCl 1 Gram/50) 1 Gm/50 Ml Piggyback, 1 GM IV EVERY 8 HOURS for 10 Days, BAG 04/01/17 Sennosides (Senokot) 8.6 Mg Tablet, 17.2 MG GT DAILY, TAB 03/22/17 Acetaminophen (Acetaminophen) 650 Mg/20.3 Ml Solution, 650 MG GT Q6H Y for Fever /Headache/Mild Pain, ML 0 Refills 03/22/17 Vit C/Ascorbate Ca/Ascorb Sod (VITAMIN C 500 MG/15 ML LIQUID) 500 Mg/15 Ml Liquid, 500 MG GT DAILY, ML 03/22/17 Multivitamin Liquid* (MULTI-DELYN*) 237 Ml Liquid, 15 ML GT DAILY, ML 03/22/17 Magnesium Hydroxide* (MILK OF MAGNESIA*) 400 Mg/5 Ml Oral.susp, 30 ML GT DAILY Y for Constipation, ML 03/22/17 Heparin Sod (Porcine) (HEPARIN SODIUM*) 5 000/1 Ml Vial, 5000 UNITS SUBQ EVERY 8 HOURS, VIAL 03/22/17 Na Phos,M-B/Na Phos,Di-Ba* (FLEET ENEMA*) 133 Ml Enema, 133 ML RECTAL DAILY Y for Constipation, ML 0 Refills 03/22/17 Bisacodyl (DULCOLAX) 10 Mg Supp.rect, 10 MG RC DAILY Y for Constipation, SUPP 03/22/17 Dextran 70/Hypromellose (ARTIFICIAL TEARS EYE DROPS*) 15 Ml Drops, 1 DROP BOTH EYES DAILY, #15 ML 0 Refills 03/22/17 Hydralazine Hcl* (HYDRALAZINE HCL*) 10 Mg Tablet, 10 MG ORAL EVERY 6 HOURS Y for For High Blood Pressure, TAB 03/22/17 Atorvastatin Calcium* (LIPITOR*) 40 Mg Tablet, 40 MG GT DAILY, TAB 03/22/17 Donepezil Hcl* (ARICEPT*) 10 Mg Tablet, 10 MG GT HS, #10 TAB Take 1 tablet by mouth every day. 06/09/12 Amlodipine Besylate (Norvasc) 5 Mg Tab, 5 MG GT DAILY, #10 TAB Take 1 tablet by mouth every day. 06/09/12 Memantine Hcl* (NAMENDA*) 10 Mg Tablet, 10 MG GT DAILY, #20 TAB Take one tablet by mouth twice a day 06/09/12 Aspirin (ASPIRIN) 81 Mg Tablet, 81 MG GT DAILY 06/09/12 Allergies: Coded Allergies: No Known Allergies (Verified , 09/26/12) GI: Plan Plan The patient was seen and examined at bedside and all new and available data was reviewed in the patients chart. I agree with the above findings, impression and plan. (Patient seen earlier today. Signature stamp does not reflect patient encounter time.). -Cleve Sandy,[facility] Floydmanny Cruz Apr 27, 2017 15:23 CLEVE ESTRADA Apr 29, 2017 14:48
[2017-04-27 16:00] VITALS: BP 147/63
[2017-04-27] MEDS ORDERED: Nulytely 4L ORAL ONE (16:00)
[2017-04-27] MEDS ORDERED: Nulytely 4L GT ONE (16:00)
--- NOTE | 2017-04-27 17:05 | Infectious Diseases Prog Note ---
Assessment/Plan Problems: (1) Sepsis Assessment & Plan: with fever and leukocytosis, source is UTI , await blood culture, continue vancomycin and zosyn empirically (2) Catheter-associated urinary tract infection Assessment & Plan: with skin cellulitis , await urine culture and continue zosyn empirically (3) GI (gastrointestinal bleed) Assessment & Plan: monitor H/H, transfuse blood as needed. GI is following (4) Suprapubic catheter Assessment & Plan: continue local care and dressing change Subjective ROS Limited/Unobtainable: Yes Allergies: Coded Allergies: No Known Allergies (Verified , 09/26/12) Subjective he is unresponsive, dosen't follow commands Objective Vital Signs Last 24 Hour Vital Signs Date Time Temp Pulse Resp B/P (MAP) Pulse Ox O2 Delivery O2 Flow Rate FiO2 04/27/17 12:00 87 04/27/17 12:00 97.2 86 19 131/57 97 Nasal Cannula 3.0 04/27/17 08:46 Nasal Cannula 3.0 04/27/17 08:45 96 Nasal Cannula 3.0 04/27/17 08:00 93 04/27/17 08:00 97.2 96 18 137/79 97 Nasal Cannula 3.0 04/27/17 04:00 79 04/27/17 04:00 97.6 92 20 129/78 98 Nasal Cannula 3.0 04/27/17 00:00 79 04/27/17 00:00 97.0 86 18 137/74 99 Room Air 04/26/17 20:00 97.0 81 16 122/79 98 Nasal Cannula 2.0 Height (Feet): 5 Height (Inches): 10.00 Weight (Pounds): 198 General Appearance: WD/WN, no acute distress HEENT: normocephalic, atraumatic, anicteric, mucous membranes moist, supple, no JVD Respiratory/Chest: chest wall non-tender, lungs clear, normal breath sounds, no respiratory distress, no accessory muscle use, decreased breath sounds Cardiovascular: normal peripheral pulses, normal rate, regular rhythm, no gallop/murmur, no JVD Abdomen: normal bowel sounds, soft, non tender, no organomegaly, non distended , no mass, no scars, other - peg TUBE SITE LOOKS [place] Extremities: no cyanosis, no clubbing, other - right heel wound Skin: no rash, ulcers, other - cellulitis around the suprapupic catheter Microbiology Date/Time Source Procedure Growth Status 04/26/17 18:30 Indwelling Cath Urine Culture - Preliminary Resulted Laboratory Tests Test 04/26/17 17:40 04/26/17 18:30 04/27/17 08:00 04/27/17 11:00 White Blood Count 12.4 K/UL (4.8-10.8) H 9.5 K/UL (4.8-10.8) Red Blood Count 3.89 M/UL (4.70-6.10) L 3.90 M/UL (4.70-6.10) L Hemoglobin 10.9 G/DL (14.2-18.0) L 11.4 G/DL (14.2-18.0) L Hematocrit 35.6 % (42.0-52.0) L 34.8 % (42.0-52.0) L Mean Corpuscular Volume 91 FL (80-99) 89 FL (80-99) Mean Corpuscular Hemoglobin 28.1 PG (27.0-31.0) 29.2 PG (27.0-31.0) Mean Corpuscular Hemoglobin Concent 30.8 G/DL (32.0-36.0) L 32.6 G/DL (32.0-36.0) Red Cell Distribution Width 15.1 % (11.6-14.8) H 15.1 % (11.6-14.8) H Platelet Count 298 K/UL (150-450) 299 K/UL (150-450) Mean Platelet Volume 8.0 FL (6.5-10.1) 7.9 FL (6.5-10.1) Neutrophils (%) (Auto) 72.6 % (45.0-75.0) 70.6 % (45.0-75.0) Lymphocytes (%) (Auto) 17.0 % (20.0-45.0) L 15.3 % (20.0-45.0) L Monocytes (%) (Auto) 6.2 % (1.0-10.0) 6.8 % (1.0-10.0) Eosinophils (%) (Auto) 3.5 % (0.0-3.0) H 6.5 % (0.0-3.0) H Basophils (%) (Auto) 0.7 % (0.0-2.0) 0.8 % (0.0-2.0) Prothrombin Time 10.4 SEC (9.30-11.50) Prothromb Time International Ratio 1.0 (0.9-1.1) Activated Partial Thromboplast Time 28 SEC (23-33) Sodium Level 139 mEQ/L (135-145) Potassium Level 4.3 mEQ/L (3.4-4.9) Chloride Level 98 mEQ/L (98-107) Carbon Dioxide Level 30 mEQ/L (20-30) Anion Gap 11 (5-15) Blood Urea Nitrogen 32 mg/dL (7-23) H Creatinine 0.7 mg/dL (0.7-1.2) Estimat Glomerular Filtration Rate mL/min (>60) Glucose Level 134 mg/dL (74-106) H Calcium Level 9.7 mg/dL (8.6-10.2) Total Bilirubin 0.6 mg/dL (0.0-1.2) Aspartate Amino Transf (AST/SGOT) 11 U/L (5-40) Alanine Aminotransferase (ALT/SGPT) 8 U/L (3-41) Alkaline Phosphatase 105 U/L (40-129) Pro-B-Type Natriuretic Peptide 643 pg/mL (0-450) H Total Protein 7.3 g/dL (6.6-8.7) Albumin 3.4 g/dL (3.5-5.2) L Globulin 3.9 g/dL Albumin/Globulin Ratio 0.8 (1.0-2.7) L Urine Color Pale yellow Urine Appearance Clear Urine pH 8 (4.5-8.0) Urine Specific [place] 1.010 (1.005-1.035) Urine Protein 2+ (NEGATIVE) H Urine Glucose (UA) Negative (NEGATIVE) Urine Ketones Negative (NEGATIVE) Urine Occult Blood 4+ (NEGATIVE) H Urine Nitrite Negative (NEGATIVE) Urine Bilirubin Negative (NEGATIVE) Urine Urobilinogen Normal MG/DL (0.0-1.0) Urine Leukocyte Esterase 3+ (NEGATIVE) H Urine RBC 15-20 /HPF (0 - 0) H Urine WBC 10-15 /HPF (0 - 0) H Urine Squamous Epithelial Cells None /LPF (NONE/OCC) Urine Amorphous Sediment Moderate /LPF (NONE) H Urine Bacteria Many /HPF (NONE) H Differential Total Cells Counted 100 Neutrophils % (Manual) 73 % (45-75) Lymphocytes % (Manual) 14 % (20-45) L Monocytes % (Manual) 4 % (1-10) Eosinophils % (Manual) 8 % (0-3) H Basophils % (Manual) 1 % (0-2) Band Neutrophils 0 % (0-8) Platelet Estimate Adequate Platelet Morphology Normal Anisocytosis 1+ Reticulocyte Count 0.8 % (0.0-2.0) Haptoglobin 384 mg/dL (30-200) H Uric Acid 3.3 mg/dL (3.0-7.5) Iron Level 32 ug/dL (59-158) L Total Iron Binding Capacity 237 ug/dL (250-400) L Percent Iron Saturation 14 % (15-50) L Unsaturated Iron Binding 205 ug/dL (112-346) Ferritin 140 ng/mL (10-230) Lactate Dehydrogenase 114 U/L (135-230) L Carcinoembryonic Antigen 3.2 ng/mL H CA 19-9 Antigen 16.95 U/mL (< 37) Prostate Specific Antigen 5.6 ng/mL (< 4.5) H Vitamin B12 Level 1302 pg/mL (211-946) H Thyroid Stimulating Hormone (TSH) 0.970 uIU/mL (0.300-4.500) Stool Occult Blood Positive (NEGATIVE) Current Medications Medications (Trade) Dose Ordered Sig/Matt Route PRN Reason Start Time Stop Time Status Last Admin Dose Admin Acetaminophen (Tylenol) 650 mg Q4H PRN GT Mild Pain/Temp > 100.5 04/26/17 18:00 05/26/17 17:59 Clonidine HCl (Catapres) 0.1 mg Q8H PRN GT SBP > 160 mmHg 04/26/17 17:00 05/26/17 16:59 Iron Sucrose 100 mg/Sodium Chloride 60 ml @ 240 mls/hr ONCE ONCE IV 04/27/17 18:00 04/27/17 18:14 Lansoprazole (Prevacid) 30 mg DAILY GT 04/27/17 09:00 05/27/17 08:59 04/27/17 08:39 Midodrine (Pro-Amatine) 10 mg THREE TIMES A DAY GT 04/26/17 18:00 05/26/17 17:59 04/27/17 12:55 Ondansetron HCl (Zofran) 4 mg Q6H PRN GT Nausea & Vomiting 04/26/17 17:00 05/26/17 16:59 Piperacillin Sod/ Tazobactam Sod 3.375 gm/Dextrose 110 ml @ 27.5 mls/hr EVERY 8 HOURS IVPB 04/26/17 18:30 05/01/17 18:29 04/27/17 13:13 Polyethylene Glycol (Miralax) 17 gm DAILYPRN PRN ORAL Constipation 04/26/17 17:00 05/26/17 16:59 Vancomycin HCl (Vanco rx to dose) 1 ea DAILY PRN MISC Per rx protocol 04/26/17 17:00 05/26/17 16:59 Vancomycin/Sodium Chloride 250 ml @ 166.667 mls/hr Q12HR IVPB 04/27/17 09:00 05/02/17 08:59 04/27/17 08:39 Jose Juarez M.D. Apr 27, 2017 17:05
--- NOTE | 2017-04-27 17:23 | General Progress Note ---
Assessment/Plan Assessment/Plan ASSESSMENT AND RECOMMENDATIONS: 1. Anemia secondary to chronic disease --> work up reviewed. --> OB positive, gastric lavage negative. Per GI, egd/colo not needed at this time. --> watch counts 2. Leukocytosis with left shift noted in the past. Continue to closely monitor. 3. Elevated CEA greater than 20, is not on treatment at this time. He does have a history of colon cancer. 4. Elevated PSA of 126 in the past, likely represents prostate cancer. Recommend hospice given poor performance status. 5. Transaminitis. 6. Hyperbilirubinemia. 7. Encephalopathy. 8. Gastrostomy tube placement. Subjective ROS Limited/Unobtainable: Yes Allergies: Coded Allergies: No Known Allergies (Verified , 09/26/12) Subjective on oxygen 3L, nonverbal Objective Last 24 Hour Vital Signs Date Time Temp Pulse Resp B/P (MAP) Pulse Ox O2 Delivery O2 Flow Rate FiO2 04/27/17 12:00 87 04/27/17 12:00 97.2 86 19 131/57 97 Nasal Cannula 3.0 04/27/17 08:46 Nasal Cannula 3.0 04/27/17 08:45 96 Nasal Cannula 3.0 04/27/17 08:00 93 04/27/17 08:00 97.2 96 18 137/79 97 Nasal Cannula 3.0 04/27/17 04:00 79 04/27/17 04:00 97.6 92 20 129/78 98 Nasal Cannula 3.0 04/27/17 00:00 79 04/27/17 00:00 97.0 86 18 137/74 99 Room Air 04/26/17 20:00 97.0 81 16 122/79 98 Nasal Cannula 2.0 Intake and Output 04/27/17 04/28/17 19:00 07:00 Intake Total 712.500 ml Balance 712.500 ml Intake Free Water 100 ml IV Total 332.500 ml Tube Feeding 280 ml # Bowel Movements 1 Laboratory Tests 04/26/17 17:40: White Blood Count 12.4H, Red Blood Count 3.89L, Hemoglobin 10.9L, Hematocrit 35.6L, Mean Corpuscular Volume 91, Mean Corpuscular Hemoglobin 28.1, Mean Corpuscular Hemoglobin Concent 30.8L, Red Cell Distribution Width 15.1H, Platelet Count 298, Mean Platelet Volume 8.0, Neutrophils (%) (Auto) 72.6, Lymphocytes (%) (Auto) 17.0L, Monocytes (%) (Auto) 6.2, Eosinophils (%) (Auto) 3.5H, Basophils (%) (Auto) 0.7, Prothrombin Time 10.4, Prothromb Time International Ratio 1.0, Activated Partial Thromboplast Time 28, Sodium Level 139, Potassium Level 4.3, Chloride Level 98, Carbon Dioxide Level 30, Anion Gap 11, Blood Urea Nitrogen 32H, Creatinine 0.7, Estimat Glomerular Filtration Rate , Glucose Level 134H, Calcium Level 9.7, Total Bilirubin 0.6, Aspartate Amino Transf (AST/SGOT) 11, Alanine Aminotransferase (ALT/SGPT) 8, Alkaline Phosphatase 105, Pro-B-Type Natriuretic Peptide 643H, Total Protein 7.3, Albumin 3.4L, Globulin 3.9, Albumin/Globulin Ratio 0.8L 04/26/17 18:30: Urine Color Pale yellow, Urine Appearance Clear, Urine pH 8, Urine Specific [place] 1.010, Urine Protein 2+H, Urine Glucose (UA) Negative, Urine Ketones Negative, Urine Occult Blood 4+H, Urine Nitrite Negative, Urine Bilirubin Negative, Urine Urobilinogen Normal, Urine Leukocyte Esterase 3+H, Urine RBC 15- 20H, Urine WBC 10-15H, Urine Squamous Epithelial Cells None, Urine Amorphous Sediment ModerateH, Urine Bacteria ManyH 04/27/17 08:00: White Blood Count 9.5, Red Blood Count 3.90L, Hemoglobin 11.4L, Hematocrit 34.8L , Mean Corpuscular Volume 89, Mean Corpuscular Hemoglobin 29.2, Mean Corpuscular Hemoglobin Concent 32.6, Red Cell Distribution Width 15.1H, Platelet Count 299, Mean Platelet Volume 7.9, Neutrophils (%) (Auto) 70.6, Lymphocytes (%) (Auto) 15.3L, Monocytes (%) (Auto) 6.8, Eosinophils (%) (Auto) 6.5H, Basophils (%) (Auto) 0.8, Differential Total Cells Counted 100, Neutrophils % (Manual) 73, Lymphocytes % (Manual) 14L, Monocytes % (Manual) 4, Eosinophils % (Manual) 8H, Basophils % (Manual) 1, Band Neutrophils 0, Platelet Estimate Adequate, Platelet Morphology Normal, Anisocytosis 1+, Reticulocyte Count 0.8, Haptoglobin 384H, Uric Acid 3.3, Iron Level 32L, Total Iron Binding Capacity 237L, Percent Iron Saturation 14L, Unsaturated Iron Binding 205, Ferritin 140, Lactate Dehydrogenase 114L, Carcinoembryonic Antigen 3.2H, CA 19- 9 Antigen 16.95, Prostate Specific Antigen 5.6H, Vitamin B12 Level 1302H, Thyroid Stimulating Hormone (TSH) 0.970 04/27/17 11:00: Stool Occult Blood Positive Height (Feet): 5 Height (Inches): 10.00 Weight (Pounds): 198 General Appearance: no apparent distress EENT: normal ENT inspection Neck: non-tender, normal alignment Cardiovascular: normal rate Edema: 1+ Pedal (L), 1+ Pedal (R) Edema: mild edema Neurologic: assembly member II-XII grossly normal Skin: normal pigmentation Jose Luis Rendon Apr 27, 2017 17:23
[2017-04-27] MEDS ORDERED: Iron Sucrose 100 MG in NS 55 ML IV ONE (18:00)
--- NOTE | 2017-04-27 18:03 | Wound Care Consultation ---
Wound Assessment Wound Assessment #1: Wound Number: 1 Wound Present on Admission: Yes New Wound: No Status Change of Wound: No Wound Location Body Site Modif: left, lateral Wound Location Body Site: heel Wound Type: pressure ulcer Bruce Test: Does not Bruce Pressure Ulcer Stage: III Wound Thickness: Full Thickness Wound Length: 0.8 Wound Width: 1.5 Wound Depth: 0.2 Percent of Wound [place]/Red: 100 Wound Drainage Description: Serosanguineous Wound Drainage Amount: Scant Wound Drainage Odor: None/Absent Tissue Surrounding Wound: Macerated Wound General Appearance: Reddened, Draining Wound Assessment #2: Wound Number: 2 Wound Present on Admission: Yes New Wound: No Status Change of Wound: No Wound Location Body Site Modif: left Wound Location Body Site: heel Wound Type: pressure ulcer Bruce Test: Does not Bruce Pressure Ulcer Stage: deep tissue injury Wound Thickness: Full Thickness Wound Length: 2.5 Wound Width: 2.5 Wound Depth: utd Percent of Wound Purple/Maroon: 100 Wound Drainage Amount: None Wound Drainage Odor: None/Absent Tissue Surrounding Wound: Erythemic Wound General Appearance: Reddened - purple Wound Assessment #3: Wound Number: 3 Wound Present on Admission: Yes New Wound: No Status Change of Wound: No Wound Location Body Site Modif: mid Wound Location Body Site: sacral Wound Type: pressure ulcer Bruce Test: Does not Bruce Pressure Ulcer Stage: II - scattered Wound Thickness: Partial Thickness Wound Length: 4.5 Wound Width: 5.0 Wound Depth: utd Percent of Wound [place]/Red: 100 Wound Drainage Description: Serosanguineous Wound Drainage Amount: Scant Wound Drainage Odor: None/Absent Tissue Surrounding Wound: Erythemic Wound General Appearance: Reddened Wound Assessment #4: Wound Number: 4 Wound Present on Admission: Yes New Wound: No Status Change of Wound: No Wound Location Body Site Modif: right, lateral Wound Location Body Site: malleolus/ankle Wound Type: pressure ulcer Bruce Test: Does not Bruce Pressure Ulcer Stage: deep tissue injury Wound Thickness: Full Thickness Wound Length: 2.5 Wound Width: 2.0 Wound Depth: utd Percent of Wound Purple/Maroon: 100 Wound Drainage Amount: None Wound Drainage Odor: None/Absent Tissue Surrounding Wound: Intact Wound General Appearance: Reddened Wound Assessment #5: Wound Number: 5 Wound Present on Admission: Yes New Wound: No Status Change of Wound: No Wound Location Body Site Modif: right, lateral Wound Location Body Site: leg Wound Type: pressure ulcer Bruce Test: Does not Bruce Pressure Ulcer Stage: deep tissue injury Wound Thickness: Full Thickness Wound Length: 2.0 Wound Width: 2.5 Wound Depth: utd Percent of Wound Purple/Maroon: 100 Wound Drainage Amount: None Wound Drainage Odor: None/Absent Tissue Surrounding Wound: Intact Wound General Appearance: Reddened Wound Assessment #6: Wound Number: 6 Wound Present on Admission: Yes New Wound: No Status Change of Wound: No Wound Location Body Site Modif: right Wound Location Body Site: ear Wound Type: pressure ulcer Bruce Test: Does not Bruce Pressure Ulcer Stage: IV/unstageable Wound Thickness: Full Thickness Wound Length: 0.2 Wound Width: 0.5 Wound Depth: utd Wound Drainage Amount: None Wound Drainage Odor: None/Absent Tissue Surrounding Wound: Erythemic Wound General Appearance: Reddened Wound Comment #1 Left lateral heels stage III pressure ulcer #2 Left heel DTI pressure ulcer #3 Sacral area scattered stage II pressure ulcer #4 Right malleolus DTI pressure ulcer #5 Right lateral lower leg DTI pressure ulcer #6 Right ear unstageable pressure ulcer Recommendation -Local wound care per protocol -Keep clean and dry -Turn and reposition -Optimize nutrition -Heel protector on both heels -Offload both heels -Low air loss mattress -Assess and f/u accordingly for any changes ROLANDO CLIFFORD RN Apr 27, 2017 18:03
[2017-04-27 20:00] VITALS: BP 125/80
--- NOTE | 2017-04-27 20:45 | General Progress Note ---
Assessment/Plan Problem List: (1) Seizure ICD Codes: R56.9 - Unspecified convulsions SNOMED: 00004702 (2) Prostate cancer ICD Codes: C61 - Malignant neoplasm of prostate SNOMED: 594894339 (3) Sepsis ICD Codes: A41.9 - Sepsis, unspecified organism SNOMED: 16675481 (4) GI (gastrointestinal bleed) ICD Codes: K92.2 - Gastrointestinal hemorrhage, unspecified SNOMED: 62363138 (5) Suprapubic catheter ICD Codes: Z93.59 - Other cystostomy status SNOMED: 438912459, 631049309 (6) Catheter-associated urinary tract infection ICD Codes: T83.511A - Infection and inflammatory reaction due to indwelling urethral catheter, initial encounter; N39.0 - Urinary tract infection, site not specified SNOMED: 896920803 (7) Anemia ICD Codes: D64.9 - Anemia, unspecified SNOMED: 733083961 Status: progressing Assessment/Plan afebrile had fever yesterday sepsis uti cellulitis needs iv abx gi bleed moniter for gi bleed Subjective ROS Limited/Unobtainable: Yes Allergies: Coded Allergies: No Known Allergies (Verified , 09/26/12) Objective Last 24 Hour Vital Signs Date Time Temp Pulse Resp B/P (MAP) Pulse Ox O2 Delivery O2 Flow Rate FiO2 04/27/17 16:00 82 04/27/17 16:00 98.1 85 19 147/63 100 Nasal Cannula 3.0 04/27/17 12:00 87 04/27/17 12:00 97.2 86 19 131/57 97 Nasal Cannula 3.0 04/27/17 08:46 Nasal Cannula 3.0 04/27/17 08:45 96 Nasal Cannula 3.0 04/27/17 08:00 93 04/27/17 08:00 97.2 96 18 137/79 97 Nasal Cannula 3.0 04/27/17 04:00 79 04/27/17 04:00 97.6 92 20 129/78 98 Nasal Cannula 3.0 04/27/17 00:00 79 04/27/17 00:00 97.0 86 18 137/74 99 Room Air Intake and Output 04/27/17 04/28/17 19:00 07:00 Intake Total 747.500 ml Output Total 400 ml Balance 347.500 ml Intake Free Water 100 ml IV Total 332.500 ml Tube Feeding 315 ml Output Urine Total 400 ml # Bowel Movements 1 Laboratory Tests 04/27/17 08:00: White Blood Count 9.5, Red Blood Count 3.90L, Hemoglobin 11.4L, Hematocrit 34.8L , Mean Corpuscular Volume 89, Mean Corpuscular Hemoglobin 29.2, Mean Corpuscular Hemoglobin Concent 32.6, Red Cell Distribution Width 15.1H, Platelet Count 299, Mean Platelet Volume 7.9, Neutrophils (%) (Auto) 70.6, Lymphocytes (%) (Auto) 15.3L, Monocytes (%) (Auto) 6.8, Eosinophils (%) (Auto) 6.5H, Basophils (%) (Auto) 0.8, Differential Total Cells Counted 100, Neutrophils % (Manual) 73, Lymphocytes % (Manual) 14L, Monocytes % (Manual) 4, Eosinophils % (Manual) 8H, Basophils % (Manual) 1, Band Neutrophils 0, Platelet Estimate Adequate, Platelet Morphology Normal, Anisocytosis 1+, Reticulocyte Count 0.8, Haptoglobin 384H, Uric Acid 3.3, Iron Level 32L, Total Iron Binding Capacity 237L, Percent Iron Saturation 14L, Unsaturated Iron Binding 205, Ferritin 140, Lactate Dehydrogenase 114L, Carcinoembryonic Antigen 3.2H, CA 19- 9 Antigen 16.95, Prostate Specific Antigen 5.6H, Vitamin B12 Level 1302H, Thyroid Stimulating Hormone (TSH) 0.970 04/27/17 11:00: Stool Occult Blood Positive Height (Feet): 5 Height (Inches): 10.00 Weight (Pounds): 198 Cardiovascular: normal rate Sary Oakes MD Apr 27, 2017 20:45
[2017-04-27] MEDS ORDERED: Fleet's Enema 133ml RECTAL ONE (23:00)
[2017-04-28] VITALS: BP 130/76
--- NOTE | 2017-04-28 01:45 | Consultation ---
DATE OF CONSULTATION: 04/27/2017 INFECTIOUS DISEASE CONSULTATION CONSULTING PHYSICIAN: Jose Juarez M.D. REQUESTING PHYSICIAN: Sary Oakes M.D. Reason For Consultation: Sepsis, fever, suprapubic catheter infection, possible pneumonia, recommendation for antibiotics therapy. History Of Present Illness: The patient is a 76-year-old male, well known to me from his previous admission with past medical history significant for seizure disorder, hypertension, urinary retention, status post suprapubic catheter placement. He was admitted recently to [facility] with sepsis, now was sent to the emergency room at [facility] for rectal bleeding, sepsis, and leukocytosis. The patient was found to have nicolette blood in the rectum in the facility where he lives at. His suprapubic catheter also was red and erythematous around the entrance. He also had some productive cough, so he was sent for evaluation and management. The patient was found to have significant leukocytosis and sepsis upon arrival to the hospital. He also had evidence of right heel wound, possible infection, so I was consulted by the primary provider for antibiotics treatment and further management. As of note, the patient is a poor historian, cannot provide any history. History was mainly obtained from the medical record. Past Medical History: Significant for urinary retention, status post suprapubic catheter placement, advanced dementia, hypertension, constipation, seizure disorder, prostate cancer, anemia, history of GI bleeding, COPD, and depression. Past Surgical History: He had suprapubic catheter and PEG tube placement, unknown date. ALLERGIES: He has no known drug allergy. Medications: He is on Prevacid, Tylenol, midodrine, clonidine, Zofran, and MiraLax. Social History: The patient lives at [facility]. No recent drugs, tobacco, or alcohol. FAMILY HISTORY: Unable to obtain. Review Of Systems: Unable to obtain at this point. The patient is poor historian. PHYSICAL EXAMINATION: Vital Signs: Temperature 97.7, pulse 88, respirations 20, blood pressure 129/72, and saturation 100% on two liters nasal cannula. General: The patient is an elderly male, unresponsive, lying in bed, comfortable, not in distress. Does not follow commands. HEENT: He had normocephalic and atraumatic. Behind his right ear, skin redness and erythema with mild keratosis. Unable to assess eyes or oral mucosa. NECK: Supple. No lymphadenopathy. CARDIOVASCULAR: Regular rate and rhythm. No murmur or gallop. LUNGS: Clear bilaterally. Diminished breathing sounds at the bases. Abdomen: Soft, nontender, and nondistended. Positive bowel sounds. No hepatosplenomegaly. No ascites. Extremities: He had skin erythema and right heel skin wound with mild drainage. No clubbing. No cyanosis. Laboratory Data: Labs showed white count of 12.4, hemoglobin of 10.9, and platelet count of 298,000. BUN of 32 and creatinine of 0.7. AST of 11 and ALT of 8. Urinalysis showed +3 leukocyte esterase, WBC 10 to 15, and many bacteria. Stool guaiac positive. IMAGING: Chest x-ray showed basilar atelectases. ASSESSMENT AND RECOMMENDATION: 1. Sepsis with fever and leukocytosis, suspect pneumonia versus urinary tract infection as a source. We will send blood culture. Start vancomycin and Zosyn empiric treatment pending culture results. 2. Catheter-associated urinary tract infection with skin cellulitis. We will send urine culture and start Zosyn empiric treatment. Maintain catheter care as needed. 3. Gastrointestinal bleeding. Monitor hemoglobin and hematocrit. Transfuse blood as needed. Gastrointestinal is following. 4. Suprapubic catheter. Continue local care and dressing change as needed and keep clean site. Jose Juarez M.D. DR: MANDO JOB#: [id number] CC:
[2017-04-28 04:00] VITALS: BP 131/94
[2017-04-28] MEDS: Piperacillin/Tazobactam 3.375 GM in D5W 110 ML IVPB SCH ×3 (06:06→21:17)
[2017-04-28 08:18] VITALS: BP 145/73
[2017-04-28 09:04] LABS: ANION GAP 11 (5-15); CALCIUM 9.6 mg/dL (8.6-10.2); CARBON DIOXIDE 29 mEQ/L (20-30); CHLORIDE 97 mEQ/L (98-107); CREATININE 0.7 mg/dL (0.7-1.2); HEMOLYSIS 59; POTASSIUM 4.6 mEQ/L (3.4-4.9); SODIUM 137 mEQ/L (135-145)
[2017-04-28] MEDS: Midodrine 10mg tab GT SCH ×3 (09:09→18:00)
[2017-04-28 09:27] LABS: BASOPHILS % (AUTO) 0.9 % (0.0-2.0); LYMPHOCYTES % (AUTO) 15.7 % (20.0-45.0); MEAN CORPUSCULAR HEMOGLOBIN 30.2 PG (27.0-31.0); MEAN CORPUSCULAR HGB CONC 33.6 G/DL (32.0-36.0); MEAN CORPUSCULAR VOLUME 90 FL (80-99); MEAN PLATELET VOLUME 8.4 FL (6.5-10.1); MONOCYTES % (AUTO) 9.5 % (1.0-10.0); NEUTROPHILS % (AUTO) 65.9 % (45.0-75.0); PLATELET COUNT 282 K/UL (150-450); RED BLOOD COUNT 3.96 M/UL (4.70-6.10); RED CELL DISTRIBUTION WIDTH 15.5 % (11.6-14.8); WHITE BLOOD COUNT 7.1 K/UL (4.8-10.8)
[2017-04-28 09:37] LABS: PROTHROMBIN TIME 10.5 SEC (9.30-11.50)
--- NOTE | 2017-04-28 10:27 | GI Progress Note ---
Assessment/Plan Problems: (1) G tube feedings ICD Codes: Z93.1 - Gastrostomy status SNOMED: 073595812, 159733760 (2) Dementia ICD Codes: F03.90 - Unspecified dementia without behavioral disturbance SNOMED: 72320791 (3) Anemia ICD Codes: D64.9 - Anemia, unspecified SNOMED: 853007905 (4) GI (gastrointestinal bleed) ICD Codes: K92.2 - Gastrointestinal hemorrhage, unspecified SNOMED: 34992122 (5) Dysphagia ICD Codes: R13.10 - Dysphagia SNOMED: 26837241 Status: unchanged Status Narrative Discussed with Dr. Almonte. Assessment/Plan GT gastric lavage ordered r/o UGIB >> negative Per [facility], Kala Cliffordshannon @ [phone] is patients medical decision maker? - I spoke to Kala, states she is a friend but does not have legal authority to make decisions. - Patient has NO DPOA nor family, procedures require 2 MD consent for any procedures. defer colonoscopy for now given stable H&H and negative gastric lavage fu OB stool r/o GI bleed >> positive monitor H&H, prn transfusions cont PPI iron deficiency >> venofer x 1 fu labs Subjective Subjective limited Objective Last 24 Hour Vital Signs Date Time Temp Pulse Resp B/P (MAP) Pulse Ox O2 Delivery O2 Flow Rate FiO2 04/28/17 08:18 97.9 96 20 145/73 100 Nasal Cannula 3.0 04/28/17 07:16 96 Nasal Cannula 3.0 32 04/28/17 07:16 Nasal Cannula 3.0 04/28/17 04:00 83 04/28/17 04:00 97.2 94 23 131/94 99 Nasal Cannula 3.0 04/28/17 00:00 81 04/28/17 00:00 97.0 86 19 130/76 96 Room Air 04/27/17 20:00 79 04/27/17 20:00 97.7 84 18 125/80 97 Room Air 04/27/17 19:00 Nasal Cannula 3.0 04/27/17 19:00 97 Nasal Cannula 3.0 32 04/27/17 16:00 82 04/27/17 16:00 98.1 85 19 147/63 100 Nasal Cannula 3.0 04/27/17 12:00 87 04/27/17 12:00 97.2 86 19 131/57 97 Nasal Cannula 3.0 Laboratory Tests Test 04/27/17 11:00 04/28/17 08:30 Stool Occult Blood Positive (NEGATIVE) White Blood Count 7.1 K/UL (4.8-10.8) Red Blood Count 3.96 M/UL (4.70-6.10) L Hemoglobin 12.0 G/DL (14.2-18.0) L Hematocrit 35.6 % (42.0-52.0) L Mean Corpuscular Volume 90 FL (80-99) Mean Corpuscular Hemoglobin 30.2 PG (27.0-31.0) Mean Corpuscular Hemoglobin Concent 33.6 G/DL (32.0-36.0) Red Cell Distribution Width 15.5 % (11.6-14.8) H Platelet Count 282 K/UL (150-450) Mean Platelet Volume 8.4 FL (6.5-10.1) Neutrophils (%) (Auto) 65.9 % (45.0-75.0) Lymphocytes (%) (Auto) 15.7 % (20.0-45.0) L Monocytes (%) (Auto) 9.5 % (1.0-10.0) Eosinophils (%) (Auto) 8.0 % (0.0-3.0) H Basophils (%) (Auto) 0.9 % (0.0-2.0) Prothrombin Time 10.5 SEC (9.30-11.50) Prothromb Time International Ratio 1.0 (0.9-1.1) Activated Partial Thromboplast Time 28 SEC (23-33) Sodium Level 137 mEQ/L (135-145) Potassium Level 4.6 mEQ/L (3.4-4.9) Chloride Level 97 mEQ/L (98-107) L Carbon Dioxide Level 29 mEQ/L (20-30) Anion Gap 11 (5-15) Blood Urea Nitrogen 20 mg/dL (7-23) Creatinine 0.7 mg/dL (0.7-1.2) Estimat Glomerular Filtration Rate mL/min (>60) Glucose Level 175 mg/dL (74-106) H Calcium Level 9.6 mg/dL (8.6-10.2) Vancomycin Level Trough 20.6 ug/mL (5.0-12.0) H Height (Feet): 5 Height (Inches): 10.00 Weight (Pounds): 198 General Appearance: no apparent distress, alert Cardiovascular: normal rate Respiratory/Chest: normal breath sounds Abdominal Exam: site Martita Sandy N.P. Apr 28, 2017 10:27
[2017-04-28 11:25] VITALS: BP 115/72
[2017-04-28] MEDS: Vancomycin 500mg/D5W 110ml IVPB SCH ×2 (12:13)
[2017-04-28 15:19] VITALS: BP 124/68
--- NOTE | 2017-04-28 15:33 | Infectious Diseases Prog Note ---
Assessment/Plan Problems: (1) Sepsis Assessment & Plan: with fever and leukocytosis, source is UTI , await blood culture, continue vancomycin and zosyn empirically (2) Catheter-associated urinary tract infection Assessment & Plan: due to gram negative rods , with skin cellulitis , await urine culture and continue zosyn empirically (3) GI (gastrointestinal bleed) Assessment & Plan: monitor H/H, transfuse blood as needed. GI is following (4) Suprapubic catheter Assessment & Plan: continue local care and dressing change Subjective ROS Limited/Unobtainable: Yes Allergies: Coded Allergies: No Known Allergies (Verified , 09/26/12) Subjective he is unresponsive, dosen't follow commands Objective Vital Signs Last 24 Hour Vital Signs Date Time Temp Pulse Resp B/P (MAP) Pulse Ox O2 Delivery O2 Flow Rate FiO2 04/28/17 15:19 96.9 87 20 124/68 99 Nasal Cannula 3.0 04/28/17 12:00 80 04/28/17 11:25 97.7 92 20 115/72 99 Nasal Cannula 3.0 04/28/17 08:18 97.9 96 20 145/73 100 Nasal Cannula 3.0 04/28/17 08:00 90 04/28/17 07:16 96 Nasal Cannula 3.0 32 04/28/17 07:16 Nasal Cannula 3.0 04/28/17 04:00 83 04/28/17 04:00 97.2 94 23 131/94 99 Nasal Cannula 3.0 04/28/17 00:00 81 04/28/17 00:00 97.0 86 19 130/76 96 Room Air 04/27/17 20:00 79 04/27/17 20:00 97.7 84 18 125/80 97 Room Air 04/27/17 19:00 Nasal Cannula 3.0 04/27/17 19:00 97 Nasal Cannula 3.0 32 04/27/17 16:00 82 04/27/17 16:00 98.1 85 19 147/63 100 Nasal Cannula 3.0 Height (Feet): 5 Height (Inches): 10.00 Weight (Pounds): 198 General Appearance: WD/WN, no acute distress HEENT: normocephalic, atraumatic, anicteric Respiratory/Chest: chest wall non-tender, normal breath sounds, no respiratory distress, no accessory muscle use, decreased breath sounds, crackles/rales Cardiovascular: normal peripheral pulses, normal rate, regular rhythm, no gallop/murmur, no JVD Abdomen: no organomegaly, non distended, no mass, no scars, hypoactive bowel sounds Extremities: no cyanosis, no clubbing, other - WOUND ON THE RIGHT HEEL Neurologic/Psychiatric: unresponsiveness Microbiology Date/Time Source Procedure Growth Status 04/26/17 21:19 Blood Blood Culture - Preliminary NO GROWTH AFTER 24 HOURS Resulted 04/26/17 21:15 Blood Blood Culture - Preliminary NO GROWTH AFTER 24 HOURS Resulted 04/26/17 18:30 Indwelling Cath Urine Culture - Preliminary Gram Negative Bacillus 1 Resulted Laboratory Tests Test 04/28/17 08:30 White Blood Count 7.1 K/UL (4.8-10.8) Red Blood Count 3.96 M/UL (4.70-6.10) L Hemoglobin 12.0 G/DL (14.2-18.0) L Hematocrit 35.6 % (42.0-52.0) L Mean Corpuscular Volume 90 FL (80-99) Mean Corpuscular Hemoglobin 30.2 PG (27.0-31.0) Mean Corpuscular Hemoglobin Concent 33.6 G/DL (32.0-36.0) Red Cell Distribution Width 15.5 % (11.6-14.8) H Platelet Count 282 K/UL (150-450) Mean Platelet Volume 8.4 FL (6.5-10.1) Neutrophils (%) (Auto) 65.9 % (45.0-75.0) Lymphocytes (%) (Auto) 15.7 % (20.0-45.0) L Monocytes (%) (Auto) 9.5 % (1.0-10.0) Eosinophils (%) (Auto) 8.0 % (0.0-3.0) H Basophils (%) (Auto) 0.9 % (0.0-2.0) Prothrombin Time 10.5 SEC (9.30-11.50) Prothromb Time International Ratio 1.0 (0.9-1.1) Activated Partial Thromboplast Time 28 SEC (23-33) Sodium Level 137 mEQ/L (135-145) Potassium Level 4.6 mEQ/L (3.4-4.9) Chloride Level 97 mEQ/L (98-107) L Carbon Dioxide Level 29 mEQ/L (20-30) Anion Gap 11 (5-15) Blood Urea Nitrogen 20 mg/dL (7-23) Creatinine 0.7 mg/dL (0.7-1.2) Estimat Glomerular Filtration Rate mL/min (>60) Glucose Level 175 mg/dL (74-106) H Calcium Level 9.6 mg/dL (8.6-10.2) Vancomycin Level Trough 20.6 ug/mL (5.0-12.0) H Current Medications Medications (Trade) Dose Ordered Sig/Matt Route PRN Reason Start Time Stop Time Status Last Admin Dose Admin Acetaminophen (Tylenol) 650 mg Q4H PRN GT Mild Pain/Temp > 100.5 04/26/17 18:00 05/26/17 17:59 Clonidine HCl (Catapres) 0.1 mg Q8H PRN GT SBP > 160 mmHg 04/26/17 17:00 05/26/17 16:59 Lansoprazole (Prevacid) 30 mg DAILY GT 04/27/17 09:00 05/27/17 08:59 04/28/17 09:09 Midodrine (Pro-Amatine) 10 mg THREE TIMES A DAY GT 04/26/17 18:00 05/26/17 17:59 04/28/17 12:13 Ondansetron HCl (Zofran) 4 mg Q6H PRN GT Nausea & Vomiting 04/26/17 17:00 05/26/17 16:59 Piperacillin Sod/ Tazobactam Sod 3.375 gm/Dextrose 110 ml @ 27.5 mls/hr EVERY 8 HOURS IVPB 04/26/17 18:30 05/01/17 18:29 04/28/17 14:46 Polyethylene Glycol (Miralax) 17 gm DAILYPRN PRN ORAL Constipation 04/26/17 17:00 05/26/17 16:59 Vancomycin HCl (Vanco rx to dose) 1 ea DAILY PRN MISC Per rx protocol 04/26/17 17:00 05/26/17 16:59 Vancomycin HCl 500 mg/Dextrose 110 ml @ 110 mls/hr Q12HR@0000,1200 IVPB 04/28/17 12:00 05/03/17 11:59 04/28/17 12:13 Jose Juarez M.D. Apr 28, 2017 15:33
--- NOTE | 2017-04-28 16:07 | General Progress Note ---
Assessment/Plan Assessment/Plan ASSESSMENT AND RECOMMENDATIONS: 1. Anemia secondary to chronic disease --> work up reviewed. --> OB positive, gastric lavage negative. Per GI, egd/colo not needed at this time. --> watch counts, HH has improved during hospital stay 2. Leukocytosis with left shift noted in the past. Continue to closely monitor. 3. Elevated CEA greater than 20, is not on treatment at this time. He does have a history of colon cancer. 4. Elevated PSA of 126 in the past, likely represents prostate cancer. Recommend hospice given poor performance status. 5. Transaminitis. 6. Hyperbilirubinemia. 7. Encephalopathy. 8. Gastrostomy tube placement. Subjective ROS Limited/Unobtainable: Yes Allergies: Coded Allergies: No Known Allergies (Verified , 09/26/12) Subjective unresponsive Objective Last 24 Hour Vital Signs Date Time Temp Pulse Resp B/P (MAP) Pulse Ox O2 Delivery O2 Flow Rate FiO2 04/28/17 15:19 96.9 87 20 124/68 99 Nasal Cannula 3.0 04/28/17 12:00 80 04/28/17 11:25 97.7 92 20 115/72 99 Nasal Cannula 3.0 04/28/17 08:18 97.9 96 20 145/73 100 Nasal Cannula 3.0 04/28/17 08:00 90 04/28/17 07:16 96 Nasal Cannula 3.0 32 04/28/17 07:16 Nasal Cannula 3.0 04/28/17 04:00 83 04/28/17 04:00 97.2 94 23 131/94 99 Nasal Cannula 3.0 04/28/17 00:00 81 04/28/17 00:00 97.0 86 19 130/76 96 Room Air 04/27/17 20:00 79 04/27/17 20:00 97.7 84 18 125/80 97 Room Air 04/27/17 19:00 Nasal Cannula 3.0 04/27/17 19:00 97 Nasal Cannula 3.0 32 Intake and Output 04/28/17 04/29/17 19:00 07:00 Intake Total 0 ml Output Total 1000 ml Balance -1000 ml IV Total 0 ml Output Urine Total 1000 ml # Bowel Movements 1 Laboratory Tests 04/28/17 08:30: White Blood Count 7.1, Red Blood Count 3.96L, Hemoglobin 12.0L, Hematocrit 35.6L , Mean Corpuscular Volume 90, Mean Corpuscular Hemoglobin 30.2, Mean Corpuscular Hemoglobin Concent 33.6, Red Cell Distribution Width 15.5H, Platelet Count 282, Mean Platelet Volume 8.4, Neutrophils (%) (Auto) 65.9, Lymphocytes (%) (Auto) 15.7L, Monocytes (%) (Auto) 9.5, Eosinophils (%) (Auto) 8.0H, Basophils (%) (Auto) 0.9, Prothrombin Time 10.5, Prothromb Time International Ratio 1.0, Activated Partial Thromboplast Time 28, Sodium Level 137, Potassium Level 4.6, Chloride Level 97L, Carbon Dioxide Level 29, Anion Gap 11, Blood Urea Nitrogen 20, Creatinine 0.7, Estimat Glomerular Filtration Rate , Glucose Level 175H, Calcium Level 9.6, Vancomycin Level Trough 20.6H Height (Feet): 5 Height (Inches): 10.00 Weight (Pounds): 198 General Appearance: no apparent distress EENT: normal ENT inspection Neck: normal alignment Cardiovascular: regular rhythm Respiratory/Chest: chest wall non-tender Skin: normal pigmentation Jose Luis Rendon Apr 28, 2017 16:07
--- NOTE | 2017-04-28 18:01 | Consultation ---
History of Present Illness General Date patient seen: Apr 28, 2017 Time patient seen: 17:57 Chief Complaint: UTI, SP tube cellulitis Referring physician: SHERON HAINES Reason for Consultation: GI BLEED Present Illness HPI 76 yo male with multiple co-morbidities. Non responsive. Hx of SP tube likely from chronic retention. Hx of catheter associated UTIs. Current 12 portuguese SP tube draining fine, cellulitis noted earlier now seems significantly better. Allergies: Coded Allergies: No Known Allergies (Verified , 09/26/12) Medication History Scheduled Amlodipine Besylate (Norvasc), 5 MG GT DAILY, (Reported) Aspirin (Aspirin), 81 MG GT DAILY, (Reported) Atorvastatin Calcium* (Lipitor*), 40 MG GT DAILY, (Reported) Dextran 70/Hypromellose (Artificial Tears Eye Drops*), 1 DROP BOTH EYES DAILY, ( Reported) Donepezil Hcl* (Aricept*), 10 MG GT HS, (Reported) Heparin Sod (Porcine) (Heparin Sodium*), 5,000 UNITS SUBQ EVERY 8 HOURS, ( Reported) Memantine Hcl* (Namenda*), 10 MG GT DAILY, (Reported) Meropenem-0.9% Sodium Chloride (Meropenem-0.9% NaCl 1 Gram/50), 1 GM IV EVERY 8 HOURS, (Reported) Multivitamin Liquid* (Multi-Delyn*), 15 ML GT DAILY, (Reported) Sennosides (Senokot), 17.2 MG GT DAILY, (Reported) Vit C/Ascorbate Ca/Ascorb Sod (Vitamin C 500 Mg/15 Ml Liquid), 500 MG GT DAILY, (Reported) Scheduled PRN Acetaminophen (Acetaminophen), 650 MG GT Q6H PRN for Fever/Headache/Mild Pain, ( Reported) Bisacodyl (Dulcolax), 10 MG RC DAILY PRN for Constipation, (Reported) Hydralazine Hcl* (Hydralazine Hcl*), 10 MG ORAL EVERY 6 HOURS PRN for For High Blood Pressure, (Reported) Magnesium Hydroxide* (Milk Of Magnesia*), 30 ML GT DAILY PRN for Constipation, ( Reported) Na Phos,M-B/Na Phos,Di-Ba* (Fleet Enema*), 133 ML RECTAL DAILY PRN for Constipation, (Reported) Patient History Limited by: medical condition History Provided By: Medical Record Healthcare decision maker N Resuscitation status Full Code Advanced Directive on File Past Medical/Surgical History Past Medical/Surgical History: (1) Dementia (2) Catheter-associated urinary tract infection (3) ATN (acute tubular necrosis) (4) COPD (chronic obstructive pulmonary disease) (5) Prostate cancer Review of Systems Constitutional: Denies: no symptoms, see HPI, chills, sweats, fever, malaise, weakness, other Eye: Denies: no symptoms, see HPI, eye pain, blurred vision, tearing, double vision, nose pain, nose congestion, acuity changes, discharge, other All Other Systems: negative except mentioned in HPI Physical Exam General Appearance: mild distress Respiratory/Chest: lungs clear Cardiovascular/Chest: normal peripheral pulses Abdomen: soft, other - g tube in place Genitourinary/Rectal: suprapubic catheter - clean yellow urine with some debris , entry site clean, no redness/erythema Extremities: non-tender Skin Exam: warm/dry Neurologic: alert Last 24 Hour Vital Signs Date Time Temp Pulse Resp B/P (MAP) Pulse Ox O2 Delivery O2 Flow Rate FiO2 04/28/17 15:19 96.9 87 20 124/68 99 Nasal Cannula 3.0 04/28/17 12:00 80 04/28/17 11:25 97.7 92 20 115/72 99 Nasal Cannula 3.0 04/28/17 08:18 97.9 96 20 145/73 100 Nasal Cannula 3.0 04/28/17 08:00 90 04/28/17 07:16 96 Nasal Cannula 3.0 32 04/28/17 07:16 Nasal Cannula 3.0 04/28/17 04:00 83 04/28/17 04:00 97.2 94 23 131/94 99 Nasal Cannula 3.0 04/28/17 00:00 81 04/28/17 00:00 97.0 86 19 130/76 96 Room Air 04/27/17 20:00 79 04/27/17 20:00 97.7 84 18 125/80 97 Room Air 04/27/17 19:00 Nasal Cannula 3.0 04/27/17 19:00 97 Nasal Cannula 3.0 32 Intake and Output 04/28/17 04/29/17 19:00 07:00 Intake Total 0 ml Output Total 1000 ml Balance -1000 ml IV Total 0 ml Output Urine Total 1000 ml # Bowel Movements 1 Laboratory Tests Test 04/28/17 08:30 White Blood Count 7.1 K/UL (4.8-10.8) Red Blood Count 3.96 M/UL (4.70-6.10) L Hemoglobin 12.0 G/DL (14.2-18.0) L Hematocrit 35.6 % (42.0-52.0) L Mean Corpuscular Volume 90 FL (80-99) Mean Corpuscular Hemoglobin 30.2 PG (27.0-31.0) Mean Corpuscular Hemoglobin Concent 33.6 G/DL (32.0-36.0) Red Cell Distribution Width 15.5 % (11.6-14.8) H Platelet Count 282 K/UL (150-450) Mean Platelet Volume 8.4 FL (6.5-10.1) Neutrophils (%) (Auto) 65.9 % (45.0-75.0) Lymphocytes (%) (Auto) 15.7 % (20.0-45.0) L Monocytes (%) (Auto) 9.5 % (1.0-10.0) Eosinophils (%) (Auto) 8.0 % (0.0-3.0) H Basophils (%) (Auto) 0.9 % (0.0-2.0) Prothrombin Time 10.5 SEC (9.30-11.50) Prothromb Time International Ratio 1.0 (0.9-1.1) Activated Partial Thromboplast Time 28 SEC (23-33) Sodium Level 137 mEQ/L (135-145) Potassium Level 4.6 mEQ/L (3.4-4.9) Chloride Level 97 mEQ/L (98-107) L Carbon Dioxide Level 29 mEQ/L (20-30) Anion Gap 11 (5-15) Blood Urea Nitrogen 20 mg/dL (7-23) Creatinine 0.7 mg/dL (0.7-1.2) Estimat Glomerular Filtration Rate mL/min (>60) Glucose Level 175 mg/dL (74-106) H Calcium Level 9.6 mg/dL (8.6-10.2) Vancomycin Level Trough 20.6 ug/mL (5.0-12.0) H Height (Feet): 5 Height (Inches): 10.00 Weight (Pounds): 198 Medications Current Medications Medications (Trade) Dose Ordered Sig/Matt Route PRN Reason Start Time Stop Time Status Last Admin Dose Admin Acetaminophen (Tylenol) 650 mg Q4H PRN GT Mild Pain/Temp > 100.5 04/26/17 18:00 05/26/17 17:59 Clonidine HCl (Catapres) 0.1 mg Q8H PRN GT SBP > 160 mmHg 04/26/17 17:00 05/26/17 16:59 Lansoprazole (Prevacid) 30 mg DAILY GT 04/27/17 09:00 05/27/17 08:59 04/28/17 09:09 Midodrine (Pro-Amatine) 10 mg THREE TIMES A DAY GT 04/26/17 18:00 05/26/17 17:59 04/28/17 12:13 Ondansetron HCl (Zofran) 4 mg Q6H PRN GT Nausea & Vomiting 04/26/17 17:00 05/26/17 16:59 Piperacillin Sod/ Tazobactam Sod 3.375 gm/Dextrose 110 ml @ 27.5 mls/hr EVERY 8 HOURS IVPB 04/26/17 18:30 05/01/17 18:29 04/28/17 14:46 Polyethylene Glycol (Miralax) 17 gm DAILYPRN PRN ORAL Constipation 04/26/17 17:00 05/26/17 16:59 Vancomycin HCl (Vanco rx to dose) 1 ea DAILY PRN MISC Per rx protocol 04/26/17 17:00 05/26/17 16:59 Vancomycin HCl 500 mg/Dextrose 110 ml @ 110 mls/hr Q12HR@0000,1200 IVPB 04/28/17 12:00 05/03/17 11:59 04/28/17 12:13 Assessment/Plan Status: stable Assessment/Plan 76 yo male with likely SP tube associated UTI. SP tube site is quite clean, no further cellulitis. Recommend treating UTI per culture for 14 days. Unclear importance of PSA, in setting of cystitis expect grossly elevated and inaccurate PSA readings. No need to change SP tube as its intact, seems relatively new and is functioning well. 1. treat UTI per cultures x 14 days 2. recommend SP tube changes every 6-8 weeks 3. recommend repeating PSA as outpatient after abx course is done Juan Alberto Herring M.D. Apr 28, 2017 18:00
[2017-04-28 20:00] VITALS: BP 97/70
[2017-04-29 00:15] VITALS: BP 106/59
[2017-04-29] MEDS: Vancomycin 500mg/D5W 110ml IVPB SCH ×4 (02:59→12:13)
[2017-04-29 04:18] VITALS: BP 138/69
[2017-04-29] MEDS: Piperacillin/Tazobactam 3.375 GM in D5W 110 ML IVPB SCH ×3 (06:30→20:45)
[2017-04-29 08:04] VITALS: BP 123/74
[2017-04-29] MEDS: Midodrine 10mg tab GT SCH ×3 (08:39→18:20)
--- NOTE | 2017-04-29 10:27 | GI Progress Note ---
Assessment/Plan Problems: (1) G tube feedings ICD Codes: Z93.1 - Gastrostomy status SNOMED: 070766913, 469750781 (2) Dementia ICD Codes: F03.90 - Unspecified dementia without behavioral disturbance SNOMED: 36484212 (3) Anemia ICD Codes: D64.9 - Anemia, unspecified SNOMED: 600343150 (4) GI (gastrointestinal bleed) ICD Codes: K92.2 - Gastrointestinal hemorrhage, unspecified SNOMED: 77411297 (5) Dysphagia ICD Codes: R13.10 - Dysphagia SNOMED: 76406962 Status: unchanged Status Narrative Discussed with Dr. Almonte. Assessment/Plan GT gastric lavage ordered r/o UGIB >> negative Patient requires 2 MD consent for any procedures. OB stool positive clear for DC per GI standpoint defer colonoscopy for now given stable H&H and negative gastric lavage monitor H&H, prn transfusions cont PPI iron deficiency fu labs The patient was seen and examined at bedside and all new and available data was reviewed in the patients chart. I agree with the above findings, impression and plan. (Patient seen earlier today. Signature stamp does not reflect patient encounter time.). -Cleve Almonte MD Subjective Subjective limited Objective Last 24 Hour Vital Signs Date Time Temp Pulse Resp B/P (MAP) Pulse Ox O2 Delivery O2 Flow Rate FiO2 04/29/17 08:10 Nasal Cannula 2.0 28 04/29/17 08:09 97 Nasal Cannula 2.0 28 04/29/17 08:04 97.5 83 20 123/74 97 Nasal Cannula 3.0 04/29/17 08:00 75 04/29/17 04:18 97.0 94 20 138/69 94 Nasal Cannula 2.0 04/29/17 04:00 89 04/29/17 00:15 97.7 82 20 106/59 99 Nasal Cannula 2.0 04/29/17 00:00 80 04/28/17 20:00 91 04/28/17 20:00 97.5 95 20 97/70 99 Nasal Cannula 2.0 04/28/17 19:30 Nasal Cannula 2.0 28 04/28/17 19:30 98 Nasal Cannula 2.0 28 04/28/17 16:00 90 04/28/17 15:19 96.9 87 20 124/68 99 Nasal Cannula 3.0 04/28/17 12:00 80 04/28/17 11:25 97.7 92 20 115/72 99 Nasal Cannula 3.0 Intake and Output 04/29/17 04/30/17 19:00 07:00 # Bowel Movements 1 Laboratory Tests Test 04/29/17 09:15 White Blood Count Pending Red Blood Count Pending Hemoglobin Pending Hematocrit Pending Mean Corpuscular Volume Pending Mean Corpuscular Hemoglobin Pending Mean Corpuscular Hemoglobin Concent Pending Red Cell Distribution Width Pending Platelet Count Pending Mean Platelet Volume Pending Neutrophils (%) (Auto) Pending Lymphocytes (%) (Auto) Pending Monocytes (%) (Auto) Pending Eosinophils (%) (Auto) Pending Basophils (%) (Auto) Pending Sodium Level Pending Potassium Level Pending Chloride Level Pending Carbon Dioxide Level Pending Blood Urea Nitrogen Pending Creatinine Pending Estimat Glomerular Filtration Rate Pending Glucose Level Pending Calcium Level Pending Height (Feet): 5 Height (Inches): 10.00 Weight (Pounds): 198 General Appearance: no apparent distress, alert Cardiovascular: normal rate Respiratory/Chest: normal breath sounds, no respiratory distress, other - 2LNC Abdominal Exam: GT site - c/d/i Martita Sandy N.P. Apr 29, 2017 10:27 CLEVE ALMONTE Apr 29, 2017 14:54
[2017-04-29 10:31] LABS: BASOPHILS % (AUTO) 1.5 % (0.0-2.0); EOSINOPHILS % (AUTO) 8.5 % (0.0-3.0); LYMPHOCYTES % (AUTO) 24.2 % (20.0-45.0); MEAN CORPUSCULAR HGB CONC 33.5 G/DL (32.0-36.0); MEAN CORPUSCULAR VOLUME 90 FL (80-99); MEAN PLATELET VOLUME 8.6 FL (6.5-10.1); MONOCYTES % (AUTO) 11.4 % (1.0-10.0); NEUTROPHILS % (AUTO) 54.4 % (45.0-75.0); PLATELET COUNT 265 K/UL (150-450); RED BLOOD COUNT 4.17 M/UL (4.70-6.10); WHITE BLOOD COUNT 5.6 K/UL (4.8-10.8)
[2017-04-29 10:45] LABS: ANION GAP 12 (5-15); CALCIUM 9.8 mg/dL (8.6-10.2); CARBON DIOXIDE 30 mEQ/L (20-30); CHLORIDE 96 mEQ/L (98-107); CREATININE 0.7 mg/dL (0.7-1.2); HEMOLYSIS 12; POTASSIUM 5.2 mEQ/L (3.4-4.9); SODIUM 138 mEQ/L (135-145)
[2017-04-29 11:43] VITALS: BP 121/74
[2017-04-29] MEDS ORDERED: Sodium Polystyrene Sulfonate 15gm Powder GT ONE (12:00)
[2017-04-29 12:51] LABS: OTHERS PATHOLOGIST COMMENT
[2017-04-29 15:43] VITALS: BP 130/79
--- NOTE | 2017-04-29 15:49 | Infectious Diseases Prog Note ---
Assessment/Plan Problems: (1) Sepsis Assessment & Plan: source is UTI , blood culture is negative so far, will stop vancomycin and continue zosyn empirically (2) Catheter-associated urinary tract infection Assessment & Plan: due to pseudomonas aeruginosa and gram negative rods ,await urine culture and continue zosyn empirically (3) GI (gastrointestinal bleed) Assessment & Plan: monitor H/H, transfuse blood as needed. GI is following (4) Suprapubic catheter Assessment & Plan: continue local care and dressing change (5) Colonization with VRE (vancomycin-resistant enterococcus) Assessment & Plan: keep in contact isolation Subjective ROS Limited/Unobtainable: Yes Allergies: Coded Allergies: No Known Allergies (Verified , 09/26/12) Subjective he is unresponsive, dosen't follow commands Objective Vital Signs Last 24 Hour Vital Signs Date Time Temp Pulse Resp B/P (MAP) Pulse Ox O2 Delivery O2 Flow Rate FiO2 04/29/17 15:43 96.9 90 20 130/79 100 Nasal Cannula 3.0 04/29/17 12:00 87 04/29/17 11:43 97.1 82 20 121/74 100 Nasal Cannula 3.0 04/29/17 08:10 Nasal Cannula 2.0 28 04/29/17 08:09 97 Nasal Cannula 2.0 28 04/29/17 08:04 97.5 83 20 123/74 97 Nasal Cannula 3.0 04/29/17 08:00 75 04/29/17 04:18 97.0 94 20 138/69 94 Nasal Cannula 2.0 04/29/17 04:00 89 04/29/17 00:15 97.7 82 20 106/59 99 Nasal Cannula 2.0 04/29/17 00:00 80 04/28/17 20:00 91 04/28/17 20:00 97.5 95 20 97/70 99 Nasal Cannula 2.0 04/28/17 19:30 Nasal Cannula 2.0 28 04/28/17 19:30 98 Nasal Cannula 2.0 28 04/28/17 16:00 90 Height (Feet): 5 Height (Inches): 10.00 Weight (Pounds): 198 General Appearance: WD/WN, no acute distress, cachetic HEENT: normocephalic, atraumatic, anicteric, supple, no JVD Respiratory/Chest: chest wall non-tender, no respiratory distress, no accessory muscle use, decreased breath sounds Cardiovascular: normal peripheral pulses, normal rate, regular rhythm, no gallop/murmur Abdomen: normal bowel sounds, soft, non tender, no organomegaly, non distended , no mass, no scars Extremities: no cyanosis, no clubbing Skin: no rash, no lesions, ulcers Neurologic/Psychiatric: unresponsiveness Microbiology Date/Time Source Procedure Growth Status 04/26/17 21:19 Blood Blood Culture - Preliminary NO GROWTH AFTER 48 HOURS Resulted 04/26/17 21:15 Blood Blood Culture - Preliminary NO GROWTH AFTER 48 HOURS Resulted 04/26/17 18:30 Nasal Nares MRSA Culture - Final NO METHICILLIN RESISTANT STAPH AUREUS... Complete 04/26/17 18:30 Indwelling Cath Urine Culture - Preliminary Pseudomonas Aeruginosa Gram Negative Bacillus 2 Resulted 04/26/17 18:30 Rectum VRE Culture - Final Enterococcus Faecalis - Vre Enterococcus Faecium - Vre Complete Laboratory Tests Test 04/29/17 09:15 White Blood Count 5.6 K/UL (4.8-10.8) Red Blood Count 4.17 M/UL (4.70-6.10) L Hemoglobin 12.5 G/DL (14.2-18.0) L Hematocrit 37.4 % (42.0-52.0) L Mean Corpuscular Volume 90 FL (80-99) Mean Corpuscular Hemoglobin 30.0 PG (27.0-31.0) Mean Corpuscular Hemoglobin Concent 33.5 G/DL (32.0-36.0) Red Cell Distribution Width 15.0 % (11.6-14.8) H Platelet Count 265 K/UL (150-450) Mean Platelet Volume 8.6 FL (6.5-10.1) Neutrophils (%) (Auto) 54.4 % (45.0-75.0) Lymphocytes (%) (Auto) 24.2 % (20.0-45.0) Monocytes (%) (Auto) 11.4 % (1.0-10.0) H Eosinophils (%) (Auto) 8.5 % (0.0-3.0) H Basophils (%) (Auto) 1.5 % (0.0-2.0) Sodium Level 138 mEQ/L (135-145) Potassium Level 5.2 mEQ/L (3.4-4.9) H Chloride Level 96 mEQ/L (98-107) L Carbon Dioxide Level 30 mEQ/L (20-30) Anion Gap 12 (5-15) Blood Urea Nitrogen 18 mg/dL (7-23) Creatinine 0.7 mg/dL (0.7-1.2) Estimat Glomerular Filtration Rate mL/min (>60) Glucose Level 177 mg/dL (74-106) H Calcium Level 9.8 mg/dL (8.6-10.2) Current Medications Medications (Trade) Dose Ordered Sig/Matt Route PRN Reason Start Time Stop Time Status Last Admin Dose Admin Acetaminophen (Tylenol) 650 mg Q4H PRN GT Mild Pain/Temp > 100.5 04/26/17 18:00 05/26/17 17:59 Clonidine HCl (Catapres) 0.1 mg Q8H PRN GT SBP > 160 mmHg 04/26/17 17:00 05/26/17 16:59 Lansoprazole (Prevacid) 30 mg DAILY GT 04/27/17 09:00 05/27/17 08:59 04/29/17 08:39 Midodrine (Pro-Amatine) 10 mg THREE TIMES A DAY GT 04/26/17 18:00 05/26/17 17:59 04/29/17 12:14 Ondansetron HCl (Zofran) 4 mg Q6H PRN GT Nausea & Vomiting 04/26/17 17:00 05/26/17 16:59 Piperacillin Sod/ Tazobactam Sod 3.375 gm/Dextrose 110 ml @ 27.5 mls/hr EVERY 8 HOURS IVPB 04/26/17 18:30 05/01/17 18:29 04/29/17 14:58 Polyethylene Glycol (Miralax) 17 gm DAILYPRN PRN ORAL Constipation 04/26/17 17:00 05/26/17 16:59 Vancomycin HCl (Vanco rx to dose) 1 ea DAILY PRN MISC Per rx protocol 04/26/17 17:00 05/26/17 16:59 Vancomycin HCl 500 mg/Dextrose 110 ml @ 110 mls/hr Q12HR@0000,1200 IVPB 04/28/17 12:00 05/03/17 11:59 04/29/17 12:13 Jose Juarez M.D. Apr 29, 2017 15:49
--- NOTE | 2017-04-29 17:38 | General Progress Note ---
Assessment/Plan Assessment/Plan ASSESSMENT AND RECOMMENDATIONS: 1. Anemia secondary to chronic disease --> work up reviewed. --> OB positive, gastric lavage negative. Per GI, egd/colo not needed at this time. --> watch counts, HH has improved during hospital stay 4. Elevated PSA of 126 in the past, likely represents prostate cancer. Recommend hospice given poor performance status. 5. Transaminitis. 6. Hyperbilirubinemia. 7. Encephalopathy. 8. Gastrostomy tube placement. Subjective ROS Limited/Unobtainable: Yes Allergies: Coded Allergies: No Known Allergies (Verified , 09/26/12) Subjective unresponsive Objective Last 24 Hour Vital Signs Date Time Temp Pulse Resp B/P (MAP) Pulse Ox O2 Delivery O2 Flow Rate FiO2 04/29/17 15:43 96.9 90 20 130/79 100 Nasal Cannula 3.0 04/29/17 12:00 87 04/29/17 11:43 97.1 82 20 121/74 100 Nasal Cannula 3.0 04/29/17 08:10 Nasal Cannula 2.0 28 04/29/17 08:09 97 Nasal Cannula 2.0 28 04/29/17 08:04 97.5 83 20 123/74 97 Nasal Cannula 3.0 04/29/17 08:00 75 04/29/17 04:18 97.0 94 20 138/69 94 Nasal Cannula 2.0 04/29/17 04:00 89 04/29/17 00:15 97.7 82 20 106/59 99 Nasal Cannula 2.0 04/29/17 00:00 80 04/28/17 20:00 91 04/28/17 20:00 97.5 95 20 97/70 99 Nasal Cannula 2.0 04/28/17 19:30 Nasal Cannula 2.0 28 04/28/17 19:30 98 Nasal Cannula 2.0 28 Intake and Output 04/29/17 04/30/17 19:00 07:00 Output Total 600 ml Balance -600 ml Output Urine Total 600 ml # Bowel Movements 2 Laboratory Tests 04/29/17 09:15: White Blood Count 5.6, Red Blood Count 4.17L, Hemoglobin 12.5L, Hematocrit 37.4L , Mean Corpuscular Volume 90, Mean Corpuscular Hemoglobin 30.0, Mean Corpuscular Hemoglobin Concent 33.5, Red Cell Distribution Width 15.0H, Platelet Count 265, Mean Platelet Volume 8.6, Neutrophils (%) (Auto) 54.4, Lymphocytes (%) (Auto) 24.2, Monocytes (%) (Auto) 11.4H, Eosinophils (%) (Auto) 8.5H, Basophils (%) (Auto) 1.5, Sodium Level 138, Potassium Level 5.2H, Chloride Level 96L, Carbon Dioxide Level 30, Anion Gap 12, Blood Urea Nitrogen 18, Creatinine 0.7, Estimat Glomerular Filtration Rate , Glucose Level 177H, Calcium Level 9.8 Height (Feet): 5 Height (Inches): 10.00 Weight (Pounds): 198 General Appearance: no apparent distress EENT: normal ENT inspection Neck: normal alignment Cardiovascular: no gallop/murmur Respiratory/Chest: no accessory muscle use Abdomen: no organomegaly Skin: warm/dry Jose Luis Rendon Apr 29, 2017 17:38
--- NOTE | 2017-04-29 18:09 | General Progress Note ---
Assessment/Plan Problem List: (1) Seizure ICD Codes: R56.9 - Unspecified convulsions SNOMED: 95327128 (2) Prostate cancer ICD Codes: C61 - Malignant neoplasm of prostate SNOMED: 387426531 (3) Sepsis ICD Codes: A41.9 - Sepsis, unspecified organism SNOMED: 34297283 (4) GI (gastrointestinal bleed) ICD Codes: K92.2 - Gastrointestinal hemorrhage, unspecified SNOMED: 52542946 (5) Suprapubic catheter ICD Codes: Z93.59 - Other cystostomy status SNOMED: 086547542, 973426287 (6) Catheter-associated urinary tract infection ICD Codes: T83.511A - Infection and inflammatory reaction due to indwelling urethral catheter, initial encounter; N39.0 - Urinary tract infection, site not specified SNOMED: 724405800 (7) Anemia ICD Codes: D64.9 - Anemia, unspecified SNOMED: 836212658 Status: progressing Assessment/Plan dc in am clinically improving needs iv abx gi bleed stopped moniter for gi bleed Subjective ROS Limited/Unobtainable: Yes Allergies: Coded Allergies: No Known Allergies (Verified , 09/26/12) Objective Last 24 Hour Vital Signs Date Time Temp Pulse Resp B/P (MAP) Pulse Ox O2 Delivery O2 Flow Rate FiO2 04/29/17 16:00 100 04/29/17 15:43 96.9 90 20 130/79 100 Nasal Cannula 3.0 04/29/17 12:00 87 04/29/17 11:43 97.1 82 20 121/74 100 Nasal Cannula 3.0 04/29/17 08:10 Nasal Cannula 2.0 28 04/29/17 08:09 97 Nasal Cannula 2.0 28 04/29/17 08:04 97.5 83 20 123/74 97 Nasal Cannula 3.0 04/29/17 08:00 75 04/29/17 04:18 97.0 94 20 138/69 94 Nasal Cannula 2.0 04/29/17 04:00 89 04/29/17 00:15 97.7 82 20 106/59 99 Nasal Cannula 2.0 04/29/17 00:00 80 04/28/17 20:00 91 04/28/17 20:00 97.5 95 20 97/70 99 Nasal Cannula 2.0 04/28/17 19:30 Nasal Cannula 2.0 28 04/28/17 19:30 98 Nasal Cannula 2.0 28 Intake and Output 04/29/17 04/30/17 19:00 07:00 Output Total 850 ml Balance -850 ml Output Urine Total 850 ml # Bowel Movements 3 Laboratory Tests 04/29/17 09:15: White Blood Count 5.6, Red Blood Count 4.17L, Hemoglobin 12.5L, Hematocrit 37.4L , Mean Corpuscular Volume 90, Mean Corpuscular Hemoglobin 30.0, Mean Corpuscular Hemoglobin Concent 33.5, Red Cell Distribution Width 15.0H, Platelet Count 265, Mean Platelet Volume 8.6, Neutrophils (%) (Auto) 54.4, Lymphocytes (%) (Auto) 24.2, Monocytes (%) (Auto) 11.4H, Eosinophils (%) (Auto) 8.5H, Basophils (%) (Auto) 1.5, Sodium Level 138, Potassium Level 5.2H, Chloride Level 96L, Carbon Dioxide Level 30, Anion Gap 12, Blood Urea Nitrogen 18, Creatinine 0.7, Estimat Glomerular Filtration Rate , Glucose Level 177H, Calcium Level 9.8 Height (Feet): 5 Height (Inches): 10.00 Weight (Pounds): 198 Cardiovascular: regular rhythm Respiratory/Chest: lungs clear Sary Oakes MD Apr 29, 2017 18:09
[2017-04-29 20:33] VITALS: BP_SYST 112; BP_SYST 134; BP_DIAS 60; BP_DIAS 89
[2017-04-30 00:40] VITALS: BP 130/66
[2017-04-30 04:37] VITALS: BP 118/54
[2017-04-30] MEDS: Piperacillin/Tazobactam 3.375 GM in D5W 110 ML IVPB SCH ×2 (05:03→13:53)
[2017-04-30] MEDS: Midodrine 10mg tab GT SCH ×2 (08:10→13:53)
[2017-04-30 08:21] LABS: BASOPHILS % (AUTO) 1.1 % (0.0-2.0); EOSINOPHILS % (AUTO) 10.6 % (0.0-3.0); LYMPHOCYTES % (AUTO) 20.1 % (20.0-45.0); MEAN CORPUSCULAR HEMOGLOBIN 29.1 PG (27.0-31.0); MEAN CORPUSCULAR HGB CONC 32.6 G/DL (32.0-36.0); MEAN CORPUSCULAR VOLUME 89 FL (80-99); MEAN PLATELET VOLUME 8.8 FL (6.5-10.1); MONOCYTES % (AUTO) 14.2 % (1.0-10.0); NEUTROPHILS % (AUTO) 54.1 % (45.0-75.0); PLATELET COUNT 274 K/UL (150-450); RED BLOOD COUNT 3.69 M/UL (4.70-6.10); WHITE BLOOD COUNT 5.6 K/UL (4.8-10.8)
[2017-04-30 08:34] LABS: ANION GAP 9 (5-15); CALCIUM 9.5 mg/dL (8.6-10.2); CARBON DIOXIDE 33 mEQ/L (20-30); CHLORIDE 100 mEQ/L (98-107); CREATININE 0.7 mg/dL (0.7-1.2); HEMOLYSIS 0; POTASSIUM 3.7 mEQ/L (3.4-4.9); SODIUM 142 mEQ/L (135-145)
[2017-04-30 08:36] VITALS: BP 132/73
--- NOTE | 2017-04-30 10:34 | GI Progress Note ---
Assessment/Plan Problems: (1) G tube feedings ICD Codes: Z93.1 - Gastrostomy status SNOMED: 617509492, 289934002 (2) Dementia ICD Codes: F03.90 - Unspecified dementia without behavioral disturbance SNOMED: 13710668 (3) Anemia ICD Codes: D64.9 - Anemia, unspecified SNOMED: 167936272 (4) GI (gastrointestinal bleed) ICD Codes: K92.2 - Gastrointestinal hemorrhage, unspecified SNOMED: 50430816 (5) Dysphagia ICD Codes: R13.10 - Dysphagia SNOMED: 46110431 Status: stable Status Narrative Discussed with Dr. Almonte. Assessment/Plan GT gastric lavage ordered r/o UGIB >> negative Patient requires 2 MD consent for any procedures. OB stool positive stable H&H iron deficiency clear for DC per GI standpoint defer colonoscopy for now given stable H&H and negative gastric lavage monitor H&H, prn transfusions cont PPI fu labs The patient was seen and examined at bedside and all new and available data was reviewed in the patients chart. I agree with the above findings, impression and plan. (Patient seen earlier today. Signature stamp does not reflect patient encounter time.). -Cleve Almonte MD Subjective Subjective limited Objective Last 24 Hour Vital Signs Date Time Temp Pulse Resp B/P (MAP) Pulse Ox O2 Delivery O2 Flow Rate FiO2 04/30/17 08:36 96.8 86 20 132/73 100 Nasal Cannula 3.0 04/30/17 04:37 97.2 89 20 118/54 100 Nasal Cannula 04/30/17 04:00 89 04/30/17 00:40 97.3 85 20 130/66 100 Nasal Cannula 04/30/17 00:00 75 04/29/17 20:33 97.5 88 20 134/89 100 Nasal Cannula 4.0 04/29/17 20:00 86 04/29/17 19:45 Nasal Cannula 2.0 28 04/29/17 19:45 98 Nasal Cannula 2.0 28 04/29/17 16:00 100 04/29/17 15:43 96.9 90 20 130/79 100 Nasal Cannula 3.0 04/29/17 12:00 87 04/29/17 11:43 97.1 82 20 121/74 100 Nasal Cannula 3.0 Intake and Output 04/30/17 05/01/17 19:00 07:00 # Bowel Movements 1 Laboratory Tests Test 04/30/17 07:23 White Blood Count 5.6 K/UL (4.8-10.8) Red Blood Count 3.69 M/UL (4.70-6.10) L Hemoglobin 10.8 G/DL (14.2-18.0) L Hematocrit 33.0 % (42.0-52.0) L Mean Corpuscular Volume 89 FL (80-99) Mean Corpuscular Hemoglobin 29.1 PG (27.0-31.0) Mean Corpuscular Hemoglobin Concent 32.6 G/DL (32.0-36.0) Red Cell Distribution Width 15.0 % (11.6-14.8) H Platelet Count 274 K/UL (150-450) Mean Platelet Volume 8.8 FL (6.5-10.1) Neutrophils (%) (Auto) 54.1 % (45.0-75.0) Lymphocytes (%) (Auto) 20.1 % (20.0-45.0) Monocytes (%) (Auto) 14.2 % (1.0-10.0) H Eosinophils (%) (Auto) 10.6 % (0.0-3.0) H Basophils (%) (Auto) 1.1 % (0.0-2.0) Sodium Level 142 mEQ/L (135-145) Potassium Level 3.7 mEQ/L (3.4-4.9) Chloride Level 100 mEQ/L (98-107) Carbon Dioxide Level 33 mEQ/L (20-30) H Anion Gap 9 (5-15) Blood Urea Nitrogen 17 mg/dL (7-23) Creatinine 0.7 mg/dL (0.7-1.2) Estimat Glomerular Filtration Rate mL/min (>60) Glucose Level 175 mg/dL (74-106) H Calcium Level 9.5 mg/dL (8.6-10.2) Height (Feet): 5 Height (Inches): 10.00 Weight (Pounds): 198 General Appearance: no apparent distress, alert Cardiovascular: normal rate Respiratory/Chest: normal breath sounds, no respiratory distress Abdominal Exam: normal bowel sounds, non tender, soft, GT site - c/d/i SandyMartita newell N.P. Apr 30, 2017 10:34 CLEVE ALMONTE May 03, 2017 10:56
[2017-04-30 11:51] VITALS: BP 144/77
--- NOTE | 2017-04-30 12:40 | General Progress Note ---
Assessment/Plan Assessment/Plan ASSESSMENT AND RECOMMENDATIONS: 1. Anemia secondary to chronic disease --> work up reviewed. --> OB positive, gastric lavage negative. Per GI, egd/colo not needed at this time. --> watch counts 4. Elevated PSA of 126 in the past, likely represents prostate cancer. Recommend hospice given poor performance status. 5. Transaminitis. 6. Hyperbilirubinemia. 7. Encephalopathy. 8. Gastrostomy tube placement. Subjective ROS Limited/Unobtainable: Yes Allergies: Coded Allergies: No Known Allergies (Verified , 09/26/12) Subjective no events overnight, afebrile Objective Last 24 Hour Vital Signs Date Time Temp Pulse Resp B/P (MAP) Pulse Ox O2 Delivery O2 Flow Rate FiO2 04/30/17 11:51 96.6 86 20 144/77 99 Nasal Cannula 3.0 04/30/17 08:36 96.8 86 20 132/73 100 Nasal Cannula 3.0 04/30/17 08:00 87 04/30/17 04:37 97.2 89 20 118/54 100 Nasal Cannula 04/30/17 04:00 89 04/30/17 00:40 97.3 85 20 130/66 100 Nasal Cannula 04/30/17 00:00 75 04/29/17 20:33 97.5 88 20 134/89 100 Nasal Cannula 4.0 04/29/17 20:00 86 04/29/17 19:45 Nasal Cannula 2.0 28 04/29/17 19:45 98 Nasal Cannula 2.0 28 04/29/17 16:00 100 04/29/17 15:43 96.9 90 20 130/79 100 Nasal Cannula 3.0 Intake and Output 04/30/17 05/01/17 19:00 07:00 Output Total 300 ml Balance -300 ml Output Urine Total 300 ml # Bowel Movements 2 Laboratory Tests 04/30/17 07:23: White Blood Count 5.6, Red Blood Count 3.69L, Hemoglobin 10.8L, Hematocrit 33.0L , Mean Corpuscular Volume 89, Mean Corpuscular Hemoglobin 29.1, Mean Corpuscular Hemoglobin Concent 32.6, Red Cell Distribution Width 15.0H, Platelet Count 274, Mean Platelet Volume 8.8, Neutrophils (%) (Auto) 54.1, Lymphocytes (%) (Auto) 20.1, Monocytes (%) (Auto) 14.2H, Eosinophils (%) (Auto) 10.6H, Basophils (%) (Auto) 1.1, Sodium Level 142, Potassium Level 3.7, Chloride Level 100, Carbon Dioxide Level 33H, Anion Gap 9, Blood Urea Nitrogen 17, Creatinine 0.7, Estimat Glomerular Filtration Rate , Glucose Level 175H, Calcium Level 9.5 Height (Feet): 5 Height (Inches): 10.00 Weight (Pounds): 198 General Appearance: no apparent distress EENT: normal ENT inspection Neck: normal alignment Cardiovascular: normal peripheral pulses Extremities: non-tender Edema: 1+ Pedal (L), 1+ Pedal (R) 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
--- NOTE | 2017-04-30 13:23 | General Progress Note ---
Assessment/Plan Problem List: (1) Seizure ICD Codes: R56.9 - Unspecified convulsions SNOMED: 19008815 (2) Prostate cancer ICD Codes: C61 - Malignant neoplasm of prostate SNOMED: 577970954 (3) Sepsis ICD Codes: A41.9 - Sepsis, unspecified organism SNOMED: 30729380 (4) GI (gastrointestinal bleed) ICD Codes: K92.2 - Gastrointestinal hemorrhage, unspecified SNOMED: 13350374 (5) Suprapubic catheter ICD Codes: Z93.59 - Other cystostomy status SNOMED: 969047138, 495810665 (6) Catheter-associated urinary tract infection ICD Codes: T83.511A - Infection and inflammatory reaction due to indwelling urethral catheter, initial encounter; N39.0 - Urinary tract infection, site not specified SNOMED: 365585678 (7) Anemia ICD Codes: D64.9 - Anemia, unspecified SNOMED: 059846081 Status: progressing Assessment/Plan no gi bleed dc to snf see dc summary for details Subjective ROS Limited/Unobtainable: Yes Allergies: Coded Allergies: No Known Allergies (Verified , 09/26/12) Objective Last 24 Hour Vital Signs Date Time Temp Pulse Resp B/P (MAP) Pulse Ox O2 Delivery O2 Flow Rate FiO2 04/30/17 11:51 96.6 86 20 144/77 99 Nasal Cannula 3.0 04/30/17 08:36 96.8 86 20 132/73 100 Nasal Cannula 3.0 04/30/17 08:00 87 04/30/17 04:37 97.2 89 20 118/54 100 Nasal Cannula 04/30/17 04:00 89 04/30/17 00:40 97.3 85 20 130/66 100 Nasal Cannula 04/30/17 00:00 75 04/29/17 20:33 97.5 88 20 134/89 100 Nasal Cannula 4.0 04/29/17 20:00 86 04/29/17 19:45 Nasal Cannula 2.0 28 04/29/17 19:45 98 Nasal Cannula 2.0 28 04/29/17 16:00 100 04/29/17 15:43 96.9 90 20 130/79 100 Nasal Cannula 3.0 Intake and Output 04/30/17 05/01/17 19:00 07:00 Output Total 300 ml Balance -300 ml Output Urine Total 300 ml # Bowel Movements 2 Laboratory Tests 04/30/17 07:23: White Blood Count 5.6, Red Blood Count 3.69L, Hemoglobin 10.8L, Hematocrit 33.0L , Mean Corpuscular Volume 89, Mean Corpuscular Hemoglobin 29.1, Mean Corpuscular Hemoglobin Concent 32.6, Red Cell Distribution Width 15.0H, Platelet Count 274, Mean Platelet Volume 8.8, Neutrophils (%) (Auto) 54.1, Lymphocytes (%) (Auto) 20.1, Monocytes (%) (Auto) 14.2H, Eosinophils (%) (Auto) 10.6H, Basophils (%) (Auto) 1.1, Sodium Level 142, Potassium Level 3.7, Chloride Level 100, Carbon Dioxide Level 33H, Anion Gap 9, Blood Urea Nitrogen 17, Creatinine 0.7, Estimat Glomerular Filtration Rate , Glucose Level 175H, Calcium Level 9.5 Height (Feet): 5 Height (Inches): 10.00 Weight (Pounds): 198 Respiratory/Chest: lungs clear Abdomen: non tender Sary Oakes MD Apr 30, 2017 13:23
[2017-04-30 15:33] VITALS: BP 134/71
--- NOTE | 2017-04-30 15:39 | Infectious Diseases Prog Note ---
Assessment/Plan Problems: (1) Sepsis Assessment & Plan: source is UTI WITH PSEUDOMONAS AND ENTEROBACTER infection , blood culture is negative so far, will switch zosyn to levaquin and treat for 10 more days for CAUTI . (2) Catheter-associated urinary tract infection Assessment & Plan: due to pseudomonas aeruginosa and enterobacter cloacae complex , already on zosyn empirically, will switch to levaquin and treat for 10 more days . (3) GI (gastrointestinal bleed) Assessment & Plan: monitor H/H, transfuse blood as needed. GI is following (4) Suprapubic catheter Assessment & Plan: continue local care and dressing change (5) Colonization with VRE (vancomycin-resistant enterococcus) Assessment & Plan: keep in contact isolation Subjective ROS Limited/Unobtainable: Yes Allergies: Coded Allergies: No Known Allergies (Verified , 09/26/12) Subjective he is unresponsive, dosen't follow commands Objective Vital Signs Last 24 Hour Vital Signs Date Time Temp Pulse Resp B/P (MAP) Pulse Ox O2 Delivery O2 Flow Rate FiO2 04/30/17 15:33 97.1 91 20 134/71 100 Nasal Cannula 3.0 04/30/17 11:51 96.6 86 20 144/77 99 Nasal Cannula 3.0 04/30/17 08:36 96.8 86 20 132/73 100 Nasal Cannula 3.0 04/30/17 08:00 87 04/30/17 04:37 97.2 89 20 118/54 100 Nasal Cannula 04/30/17 04:00 89 04/30/17 00:40 97.3 85 20 130/66 100 Nasal Cannula 04/30/17 00:00 75 04/29/17 20:33 97.5 88 20 134/89 100 Nasal Cannula 4.0 04/29/17 20:00 86 04/29/17 19:45 Nasal Cannula 2.0 28 04/29/17 19:45 98 Nasal Cannula 2.0 28 04/29/17 16:00 100 04/29/17 15:43 96.9 90 20 130/79 100 Nasal Cannula 3.0 Height (Feet): 5 Height (Inches): 10.00 Weight (Pounds): 198 General Appearance: no acute distress, cachetic HEENT: normocephalic, atraumatic, anicteric, mucous membranes moist, PERRL, EOMI, pharynx normal, supple, no JVD Respiratory/Chest: chest wall non-tender, lungs clear, normal breath sounds, no respiratory distress, no accessory muscle use Cardiovascular: normal peripheral pulses, normal rate, regular rhythm, no gallop/murmur, no JVD Abdomen: normal bowel sounds, soft, non tender, no organomegaly, non distended , no mass, no scars Extremities: no cyanosis, no clubbing Skin: no rash, no lesions, ulcers Neurologic/Psychiatric: alert, oriented x 3 Lymphatic: no neck adenopathy, no groin adenopathy Musculoskeletal: normal muscle bulk, no effusion Laboratory Tests Test 04/30/17 07:23 White Blood Count 5.6 K/UL (4.8-10.8) Red Blood Count 3.69 M/UL (4.70-6.10) L Hemoglobin 10.8 G/DL (14.2-18.0) L Hematocrit 33.0 % (42.0-52.0) L Mean Corpuscular Volume 89 FL (80-99) Mean Corpuscular Hemoglobin 29.1 PG (27.0-31.0) Mean Corpuscular Hemoglobin Concent 32.6 G/DL (32.0-36.0) Red Cell Distribution Width 15.0 % (11.6-14.8) H Platelet Count 274 K/UL (150-450) Mean Platelet Volume 8.8 FL (6.5-10.1) Neutrophils (%) (Auto) 54.1 % (45.0-75.0) Lymphocytes (%) (Auto) 20.1 % (20.0-45.0) Monocytes (%) (Auto) 14.2 % (1.0-10.0) H Eosinophils (%) (Auto) 10.6 % (0.0-3.0) H Basophils (%) (Auto) 1.1 % (0.0-2.0) Sodium Level 142 mEQ/L (135-145) Potassium Level 3.7 mEQ/L (3.4-4.9) Chloride Level 100 mEQ/L (98-107) Carbon Dioxide Level 33 mEQ/L (20-30) H Anion Gap 9 (5-15) Blood Urea Nitrogen 17 mg/dL (7-23) Creatinine 0.7 mg/dL (0.7-1.2) Estimat Glomerular Filtration Rate mL/min (>60) Glucose Level 175 mg/dL (74-106) H Calcium Level 9.5 mg/dL (8.6-10.2) Current Medications Medications (Trade) Dose Ordered Sig/Matt Route PRN Reason Start Time Stop Time Status Last Admin Dose Admin Acetaminophen (Tylenol) 650 mg Q4H PRN GT Mild Pain/Temp > 100.5 04/26/17 18:00 05/26/17 17:59 Clonidine HCl (Catapres) 0.1 mg Q8H PRN GT SBP > 160 mmHg 04/26/17 17:00 05/26/17 16:59 Lansoprazole (Prevacid) 30 mg DAILY GT 04/27/17 09:00 05/27/17 08:59 04/30/17 08:10 Midodrine (Pro-Amatine) 10 mg THREE TIMES A DAY GT 04/26/17 18:00 05/26/17 17:59 04/30/17 13:53 Ondansetron HCl (Zofran) 4 mg Q6H PRN GT Nausea & Vomiting 04/26/17 17:00 05/26/17 16:59 Piperacillin Sod/ Tazobactam Sod 3.375 gm/Dextrose 110 ml @ 27.5 mls/hr EVERY 8 HOURS IVPB 04/26/17 18:30 05/01/17 18:29 04/30/17 13:53 Polyethylene Glycol (Miralax) 17 gm DAILYPRN PRN ORAL Constipation 04/26/17 17:00 05/26/17 16:59 Jose Juarez M.D. Apr 30, 2017 15:39
[2017-04-30] MEDS ORDERED: LEVOFLOXACIN500 MG ORAL (15:40)
[2017-04-30] MEDS ORDERED: NS Irrig 1000ml ONE (18:14)
[2017-04-30] MEDS ORDERED: Sterile Water Irrig 1000ml IRRIG ONE (18:14)
[2017-04-30] MEDS ORDERED: Tubing IV Secondary IV ONE (18:14)
[2017-04-30] MEDS ORDERED: NS 275ml ONE (18:14)
[2017-05-01] MEDS ORDERED: Levofloxacin 500mg tab ORAL SCH (09:00)
--- NOTE | 2017-05-03 10:16 | Discharge Summary ---
Discharge Summary Hospital Course Date of Admission Apr 26, 2017 at 15:36 Date of Discharge Apr 30, 2017 at 18:15 Admitting Diagnosis HPI Elias Botello is a 76 year old male who was admitted on Apr 26, 2017 at 15:36 for Gastrointestinal Bleed Hospital Course dc summary #[id number] Discharge Medications Continued Medications: Acetaminophen (Acetaminophen) 650 Mg/20.3 Ml Solution 650 MG GT Q6H PRN for Fever/Headache/Mild Pain, ML 0 Refills Amlodipine Besylate (Norvasc) 5 Mg Tab 5 MG GT DAILY, #10 TAB Take 1 tablet by mouth every day. Aspirin (Aspirin) 81 Mg Tablet 81 MG GT DAILY Atorvastatin Calcium* (Lipitor*) 40 Mg Tablet 40 MG GT DAILY, TAB Bisacodyl (Dulcolax) 10 Mg Supp.rect 10 MG RC DAILY PRN for Constipation, SUPP Dextran 70/Hypromellose (Artificial Tears Eye Drops*) 15 Ml Drops 1 DROP BOTH EYES DAILY, #15 ML 0 Refills Donepezil Hcl* (Aricept*) 10 Mg Tablet 10 MG GT HS, #10 TAB Take 1 tablet by mouth every day. Heparin Sod (Porcine) (Heparin Sodium*) 5 000/1 Ml Vial 5000 UNITS SUBQ EVERY 8 HOURS, VIAL Hydralazine Hcl* (Hydralazine Hcl*) 10 Mg Tablet 10 MG ORAL EVERY 6 HOURS PRN for For High Blood Pressure, TAB Levofloxacin (Levofloxacin*) 500 Mg Tablet 500 MG ORAL DAILY for 10 Days, TAB Magnesium Hydroxide* (Milk Of Magnesia*) 400 Mg/5 Ml Oral.susp 30 ML GT DAILY PRN for Constipation, ML Memantine Hcl* (Namenda*) 10 Mg Tablet 10 MG GT DAILY, #20 TAB Take one tablet by mouth twice a day Multivitamin Liquid* (Multi-Delyn*) 237 Ml Liquid 15 ML GT DAILY, ML Na Phos,M-B/Na Phos,Di-Ba* (Fleet Enema*) 133 Ml Enema 133 ML RECTAL DAILY PRN for Constipation, ML 0 Refills Sennosides (Senokot) 8.6 Mg Tablet 17.2 MG GT DAILY, TAB Vit C/Ascorbate Ca/Ascorb Sod (Vitamin C 500 Mg/15 Ml Liquid) 500 Mg/15 Ml Liquid 500 MG GT DAILY, ML Discharge Condition Upon Discharge: stable Discharge Disposition Patient was discharged to SNF/Subacute Facility(03) Discharge Diagnoses: Discharge Instructions Discharge Instructions Special Instructions I have been assigned to complete a D/C Summary on this account. I was not involved in the patient management Jess Singleton NP ([facility]) May 03, 2017 10:16
--- NOTE | 2017-05-04 03:30 | Discharge Summary 2 SIG ---
DATE OF ADMISSION: 04/26/2017 DATE OF DISCHARGE: 04/30/2017 CONSULTANTS: 1. Cleve Almonte M.D.,GI specialist. 2. Jose Juarez M.D., Infectious Disease specialist. 3. Jose Luis Rendon M.D., cook specialty. 4. Dr. Herring, urologist. BRIEF HOSPITAL STAY: 76-year-old male with a history of chronic obstructive pulmonary disease, prostate cancer, and frequent urinary tract infection, was sent from the [facility] for sepsis, leukocytosis, and GI bleeding. The patient noted some erythema around suprapubic catheter. The patient by himself was a poor historian and was unable to provide any meaningful history. The patient started on empiric antibiotics. Urine culture grew Pseudomonas aeruginosa of colony count over 100,000 and Enterobacter with colony count 20,000 to 30,000. Infectious Disease specialist closely followed and optimized antibiotic regimen. The patient needs to complete antibiotic as outpatient as recommended by Infectious Disease specialist. Urologist seen the patient for possible replacement of suprapubic catheter. Per urologist, the patient had a relatively new, functioning well, and intact suprapubic catheter. No need for change at this time. He recommended to change suprapubic catheter every 6 to 8 weeks. Urologist also recommended to treat urinary tract infection for total of 14 days. Noted elevated PSA of 5.6, however, per urologist, elevated PSA in the setting of cystitis was expected. Urologist recommended to repeat PSA as outpatient, especially due to history of prostate cancer. CA 19-9 was within normal limits, mild elevation in CEA -3.2. GI specialist followed for GI bleeding. Stool OB was positive. Counts were closely monitored, no need for transfusion. Gastric lavage was negative. Per gastrointestinal specialist, no need for endoscopy or colonoscopy at this admission. Continue to monitor counts. [employer] Laboratory Director closely followed. According to cook specialty, anemia workup suggested anemia of chronic disease. Wound care nurse seen and evaluated the patient due to the existed decubitus ulcer, left lateral malleolus stage III and sacral stage II present on admission. Continue wound care at the snf facility as recommended by wound nurse specialist. The patient was stable for discharge. FINAL DIAGNOSES: 1. Sepsis 2. Suprapubic catheter associated urinary tract infection. 3. Gastrointestinal bleeding. 4. Anemia of chronic disease. 5. Suprapubic catheter status. 6. Encephalopathy. 7. Left lateral malleolus stage III, present on admission. 8. Sacral decubitus stage II, present on admission. DISCHARGE MEDICATIONS: See medication reconciliation list. DISCHARGE INSTRUCTIONS: The patient was discharged to snf facility. FOLLOWUP: Follow up with medical doctor at the facility. Sary Oakes M.D. I have been assigned to dictate discharge summary on this account and I was not involved in the patient's management. Jess Singleton ([facility] DR: CHANDRIKA JOB#: [id number] CC: SANTOSH
== END 2017-04-30 18:15 | DRG 698 ==
LOC: 2E 15:36
DX: T83.510A Infection and inflammatory reaction due to cystostomy catheter, initial encounter (principal); A41.9 Sepsis, unspecified organism; G93.40 Encephalopathy, unspecified; J18.9 Pneumonia, unspecified organism; L89.152 Pressure ulcer of sacral region, stage 2; L89.523 Pressure ulcer of left ankle, stage 3; K92.2 Gastrointestinal hemorrhage, unspecified; Z43.1 Encounter for attention to gastrostomy; F03.90 Unspecified dementia, unspecified severity, without behavioral disturbance, psychotic disturbance, mood disturbance, and anxiety; Y84.6 Urinary catheterization as the cause of abnormal reaction of the patient, or of later complication, without mention of misadventure at the time of the procedure; J44.9 Chronic obstructive pulmonary disease, unspecified; D50.0 Iron deficiency anemia secondary to blood loss (chronic); D63.8 Anemia in other chronic diseases classified elsewhere; B96.5 Pseudomonas (aeruginosa) (mallei) (pseudomallei) as the cause of diseases classified elsewhere; Z85.46 Personal history of malignant neoplasm of prostate; R13.10 Dysphagia, unspecified; R56.9 Unspecified convulsions
CPT/HCPCS: 36415; 71010; 80048; 80053; 80202; 81001; 82270; 82378; 82607; 82728; 83010; 83540; 83550; 83615; 83880; 84153; 84443; 84550; 85007; 85025; 85044; 85060; 85610; 85730; 86301; 87040; 87081; 87086; 87181; 94760

== ENCOUNTER 2017-07-02 16:12 | Inpatient (IN) | payer MEDICARE, MEDICAID ==
[~2017-07-02] VITALS: Ht 182.9 cm; Wt 78.5 kg
[2017-07-02] VITALS (19 sets, daily range): BP systolic 78–125; BP diastolic 44–92
[~2017-07-02 16:12] MED LIST changes: +LEVOFLOXACIN500 MG ORAL
[2017-07-02] MEDS ORDERED: Lidocaine 1% MPF 10mg/ml 5ml ONE (16:40)
[2017-07-02] MEDS ORDERED: Norepinephrine Bitartrate 4 MG in NS 250 ML IV ONE (17:00)
[2017-07-02] MEDS ORDERED: Piperacillin/Tazobactam 3.375 GM in D5W 55 ML IV SCH (17:00)
--- NOTE | 2017-07-02 17:05 | Emergency Room Report ---
History of Present Illness General Chief Complaint: Dyspnea/Respdistress Source: Patient, Medical Record Present Illness HPI Patient is 76-year-old male brought in by EMS for a complication to his suprapubic catheter. Patient was noted to have increased respiratory distress during transportation. The patient was a G-tube dependent. Per patient's paperwork patient is a full code. The patient was noted to have had desaturation with oxygen saturation in the 70s. He was noted to have sonorous respirations. History is limited by patient's acuity altered mental status Allergies: Coded Allergies: No Known Allergies (Verified , 09/26/12) Patient History Past Medical History: see triage record, old chart reviewed Reviewed Nursing Documentation: PMH: Agreed, PSxH: Agreed Nursing Documentation-PMH Hx Hypertension: Yes Hx COPD: Yes Hx Cancer: No Hx Cerebrovascular Accident: Yes Hx Dementia: Yes Hx Alzheimer's Disease: Yes Hx Seizures: Yes Hx Weakness: Yes Review of Systems All Other Systems: limited - by acuity altered mental status Physical Exam Vital Signs Date Time Temp Pulse Resp B/P (MAP) Pulse Ox O2 Delivery O2 Flow Rate FiO2 07/02/17 16:17 130 24 88/40 88 Simple Mask 07/02/17 16:42 100 General Appearance: severe distress, Chronically Ill Eyes: bilateral eye PERRL ENT: normal pharynx, other - large amount of secretions in oropharynx Neck: limited range of motion - kyphotic Respiratory: respiratory distress, rhonchi - right greater than left Cardiovascular #1: normal peripheral pulses, regular rate, rhythm Gastrointestinal: soft, other - gtube Musculoskeletal: decreased range of motion Neurologic: motor weakness, other - poor alertness Skin: normal inspection, normal color, no rash Procedures Critical Care Time Critical Care Time Patient had a critical medical condition which untreated could potentially result in life or limb threatening injury. Total critical care time excluding procedures approximately 45 minutes. Central Line Central Line : Consent: Emergent Central Line Lumen: triple Maximal Sterile Barrier Tech: yes cap, yes mask, yes sterile gown, yes sterile gloves, yes large sterile sheet, yes hand hygiene, yes chlorhexidine prep Central Line Postion: internal jugular (R) Anesthesia: Lidocaine cc's of anesthesia: 3 Complications: none Central Line Post Position: sutured, good blood return, position confirmed w / CXR Attempts: One Patient Tolerated: Well Complications: None Intubation Intubation : Consent: Emergent Time of Intubation: 16:51 Tube Size (cm): 8.0 Medications: Etomidate, Rocuronium Breath Sounds after Intubation: equal Intubation Complications: oral-unsuccessful attempt Post Intubation Xray: Yes Attempts: Other - 2 Patient Tolerated: Well Complications: None Medical Decision Making Diagnostic Impression: Primary Impression: COPD (chronic obstructive pulmonary disease) Additional Impressions: Sepsis Respiratory distress ER Course Patient presented for shortness of breath. Differential included but was not limited to anemia, pneumonia, pneumothorax, myocardial infarction, pericardial effusion, congestive heart failure, acidosis. Because of complexity of patient' s case laboratory testing and imaging studies were ordered. The patient was noted to have evidence of possible aspiration. The patient was placed on supplemental oxygen and suctioned. He was started on supplemental IV fluids for hypotension. The patient was intubated after direct laryngoscopy x1 and video laryngoscopy x1. The patient was lik-lamua-tmyn in between attempts and was intubated there rapidly and easily with video laryngoscopy. Had difficulty with direct laryngoscopy with due to patient's limited neck mobility. A chest x-ray showed adequate ET tube placement. A right intrajugular a central line was placed under ultrasound guidance Last Vital Signs Date Time Temp Pulse Resp B/P (MAP) Pulse Ox O2 Delivery O2 Flow Rate FiO2 07/02/17 16:42 136 34 78/55 94 Mechanical Ventilator 100 PkChuy Jul 02, 2017 17:05
[2017-07-02 17:21] LABS: ANION GAP 10 mmol/L (5-15); CALCIUM 9.9 MG/DL (8.5-10.1); CARBON DIOXIDE 27 MMOL/L (21-32); CHLORIDE 97 MMOL/L (98-107); CREATININE 1.1 MG/DL (0.55-1.30); POTASSIUM 4.8 MMOL/L (3.5-5.1); SODIUM 134 MMOL/L (136-145)
[2017-07-02 17:22] LABS: MEAN CORPUSCULAR HGB CONC 32.9 G/DL (32.0-36.0); MEAN CORPUSCULAR VOLUME 91 FL (80-99); MEAN PLATELET VOLUME 6.9 FL (6.5-10.1); PLATELET COUNT 430 K/UL (150-450); RED BLOOD COUNT 4.34 M/UL (4.70-6.10); RED CELL DISTRIBUTION WIDTH 13.1 % (11.6-14.8)
[2017-07-02 17:36] LABS: ALANINE AMINOTRANSFERASE 16 U/L (12-78); ALBUMIN/GLOBULIN RATIO 0.6 (1.0-2.7); ASPARTATE AMINO TRANSFERASE 14 U/L (15-37); MAGNESIUM 1.9 MG/DL (1.8-2.4); PHOSPHORUS 4.6 MG/DL (2.5-4.9); TOTAL PROTEIN 7.8 G/DL (6.4-8.2)
[2017-07-02] MEDS ORDERED: ALBUTEROL2.5 MG/3 M INH (17:36)
[2017-07-02] MEDS ORDERED: Levophed 4mg/4mL Inj IV ONE (17:39)
[2017-07-02] MEDS ORDERED: Zosyn 3.375gm inj ONE (17:39)
[2017-07-02] MEDS ORDERED: CRANBERRY300 MG GT (17:39)
[2017-07-02] MEDS ORDERED: MIDODRINE HCL10 MG GT (17:42)
[2017-07-02 17:45] LABS: REFLEX LACTIC ACID YES OR NO YES
[2017-07-02] MEDS ORDERED: MULTIVITAM9 MG/15 M1 GT (17:45)
[2017-07-02] MEDS ORDERED: OMEPRAZOLE20 M2 GT (17:46)
[2017-07-02] MEDS ORDERED: ZOFRAN4 M3 GT (17:47)
[2017-07-02] MEDS ORDERED: MIRALAX17 G2 GT (17:49)
[2017-07-02 17:58] LABS: ABG ALLEN TEST POSITIVE; ABG BASE EXCESS 0.6; ABG PCO2 43.1 mmHg (35.0-45.0)
[2017-07-02] MEDS ORDERED: Sodium Chloride 500ML 500 ML IV ONE (18:15)
[2017-07-02 18:36] LABS: BAND NEUTROPHILS % (MANUAL) 7 % (0-8); BASOPHILS % (MANUAL) 0 % (0-2); EOSINOPHILS % (MANUAL) 0 % (0-3); LYMPHOCYTES % (MANUAL) 15 % (20-45); NEUTROPHILS % (MANUAL) 72 % (45-75); PLATELET ESTIMATE ADEQUATE; TOTAL CELLS COUNTED 100
[2017-07-02 18:37] LABS: PLATELET MORPHOLOGY NORMAL
--- NOTE | 2017-07-02 18:50 | Consultation ---
Consult Note Assessment/Plan pulm consult dict SABAS KNOTT Jul 02, 2017 18:50
[2017-07-02] MEDS ORDERED: Acetaminophen 650 MG SUPP RECTAL ONE ×2 (19:43→20:00)
[2017-07-02 19:47] LABS: APPEARANCE,URINE CLOUDY; KETONES,URINE NEGATIVE (NEGATIVE); LEUKOCYTE ESTERASE ,URINE 3+ (NEGATIVE); NITRITE,URINE NEGATIVE (NEGATIVE); PH,URINE 5 (4.5-8.0); PROTEIN,URINE 3+ (NEGATIVE); UROBILINOGEN,URINE 4 MG/DL (0.0-1.0)
[2017-07-02 19:52] LABS: RBC,URINE TNTC /HPF (0 - 0); WBC,URINE TNTC /HPF (0 - 0)
[2017-07-02 19:53] LABS: BACTERIA,URINE FEW /HPF
[2017-07-02] MEDS: Albuterol/Ipratropium 3ml neb HHN SCH ×2 (20:10→22:35)
[2017-07-02] MEDS ORDERED: Lidocaine 1% MPF 10mg/ml 5ml INJ ONE (21:00)
[2017-07-02] MEDS: NovoLOG Insulin Flexpen SUBQ SCH (22:20)
[2017-07-02] MEDS ORDERED: Vancomycin 1.5gm/D5W 250ml 250 ML IVPB ONE (23:00)
[2017-07-02] MEDS: Zoysn 3.37gm in D5W 55ml IVPB SCH (23:11)
[2017-07-03] VITALS (75 sets, daily range): BP systolic 71–120; BP diastolic 5–94
--- NOTE | 2017-07-03 02:15 | Consultation ---
DATE OF CONSULTATION: 07/02/2017 PULMONARY CONSULTATION CONSULTING PHYSICIAN: Matthew Vázquez M.D. CHIEF COMPLAINT: Respiratory failure. HISTORY OF PRESENT ILLNESS: The patient was sent here from a [facility] because of poor urine output. En route, he was in respiratory distress and when he arrived, he was intubated and hypotensive. I was called to see him in consultation. The patient can provide no additional history. PAST MEDICAL HISTORY: The patient has been living in a [facility] at least since two months ago, but apparently was at that facility previously at least five years ago. He has advanced dementia and prostate cancer. He has a gastric tube and suprapubic catheter, anemia, urinary tract infection, seizure disorder, macular degeneration, cerebrovascular disease, depression, hyperlipidemia, anxiety, Alzheimer disease, hypertension, glaucoma, atherosclerotic heart disease, COPD, and osteoporosis. CODE STATUS: There is a pulse, but was not signed by the patient or family and indicates Full Code. MEDICATIONS: Reviewed. Medications include albuterol, heparin, midodrine, omeprazole, ondansetron. ALLERGIES: None. REVIEW OF SYSTEMS: Cannot be obtained. PHYSICAL EXAMINATION: GENERAL: The patient appears chronically ill and cachectic. VITAL SIGNS: Show hypotension on vasopressors with sinus tachycardia at 123 per minute and saturations are 100%. HEENT: The head shows temporal muscle wasting. Mouth has an orotracheal tube in place. CHEST: Has rales in the bases. CARDIAC: Rhythm is regular. ABDOMEN: Soft and nontender. The gastric tube and suprapubic catheter in place. EXTREMITIES: Muscle wasting. No clubbing, cyanosis, or edema. NEUROLOGIC: He is unresponsive. LABORATORY AND DIAGNOSTIC DATA: Laboratory studies show the white count is 22,000, hemoglobin is 13. Chemistry shows BUN 41, creatinine 1.1. Blood sugar is 363. Lactic acid is elevated at 3.4. Albumin is 2.8. Natriuretic peptide is elevated 763. Troponin 0.2. Urinalysis not obtained as there was no urine output. Chest x-ray shows right lower lobe infiltrate. IMPRESSIONS: 1. Respiratory failure. 2. Sepsis with shock. 3. Pneumonia. 4. Anuria. 5. Prostate cancer with suprapubic catheter. 6. Severe Alzheimer dementia. 7. Severe protein-calorie malnutrition. 8. Anemia. 9. Possible acute myocardial infarction. 10. Azotemia. 11. Hyperglycemia. PLAN: The patient will be admitted to intensive care. Fluid resuscitation will be administered. Cultures will be obtained. Antibiotics given. His prognosis is guarded. He may require Urology to replace his suprapubic catheter. Matthew Vázquez M.D. DR: Fabby JOB#: [id number] CC: Sary Oakes M.D.; Fax#: [phone] MATTHEW VÁZQUEZ M.D. ; FAX#: [phone]
[2017-07-03] MEDS: Albuterol/Ipratropium 3ml neb HHN SCH ×6 (03:09→23:06)
[2017-07-03 05:57] LABS: MEAN CORPUSCULAR HEMOGLOBIN 30.4 PG (27.0-31.0); MEAN CORPUSCULAR HGB CONC 33.3 G/DL (32.0-36.0); MEAN CORPUSCULAR VOLUME 91 FL (80-99); PLATELET COUNT 346 K/UL (150-450); RED BLOOD COUNT 3.82 M/UL (4.70-6.10); RED CELL DISTRIBUTION WIDTH 13.4 % (11.6-14.8)
[2017-07-03] MEDS: Zoysn 3.37gm in D5W 55ml IVPB SCH ×3 (06:02→21:39)
[2017-07-03] MEDS: NovoLOG Insulin Flexpen SUBQ SCH ×3 (06:04→16:57)
[2017-07-03 06:09] LABS: WHITE BLOOD COUNT 25.9 K/UL (4.8-10.8)
[2017-07-03 06:33] LABS: ALANINE AMINOTRANSFERASE 12 U/L (12-78); ANION GAP 11 mmol/L (5-15); ASPARTATE AMINO TRANSFERASE 16 U/L (15-37); BILIRUBIN,DIRECT 0.2 MG/DL (0.0-0.3); CARBON DIOXIDE 24 MMOL/L (21-32); CHLORIDE 102 MMOL/L (98-107); CREATININE 1.1 MG/DL (0.55-1.30); POTASSIUM 4.6 MMOL/L (3.5-5.1); SODIUM 136 MMOL/L (136-145); TOTAL PROTEIN 6.4 G/DL (6.4-8.2)
[2017-07-03 06:47] LABS: REFLEX LACTIC ACID YES OR NO YES
[2017-07-03] MEDS: Pantoprazole Inj IV SCH (09:38)
[2017-07-03] MEDS: Midodrine 10mg tab GT SCH ×3 (09:38→17:53)
[2017-07-03] MEDS: Aspirin Baby 81mg GT SCH (09:38)
[2017-07-03] MEDS: Enoxaparin Sodium 300mg/3ml vial SUBQ SCH ×2 (09:41→21:05)
--- NOTE | 2017-07-03 09:55 | Diagnostic Imaging Report ---
Indication: Shortness of breath Technique: XRAY CHEST 1 V Comparison: 07/02/17 Findings: Endotracheal tube and right internal jugular central line are present. Cardiomediastinal silhouette is stable. There is increasing interstitial and airspace pulmonary edema/infiltrates. Small bilateral pleural effusions are not excluded. Gastrostomy projects over the upper abdomen. Impression: Increasing pulmonary edema versus infiltrates. Correlation recommended. Stable endotracheal tube and right internal jugular central line.
--- NOTE | 2017-07-03 10:15 | Diagnostic Imaging Report ---
Indication: Shortness of breath Technique: XRAY CHEST 1 V Comparison: 04/27/17 Findings: Endotracheal tube and right internal jugular central line are noted. Cardiomediastinal silhouette is stable. Bilateral interstitial edema/infiltrates are seen. There is bilateral lung base atelectasis. Osseous structures are stable. Impression: Satisfactory intubation and right internal jugular central line placement. No pneumothorax. Bilateral interstitial edema versus infiltrates. Lung base atelectasis.
[2017-07-03 10:32] LABS: BAND NEUTROPHILS % (MANUAL) 15 % (0-8); LYMPHOCYTES % (MANUAL) 7 % (20-45); NEUTROPHILS % (MANUAL) 72 % (45-75); TOTAL CELLS COUNTED 100
[2017-07-03 10:33] LABS: ANISOCYTOSIS 1+; BASOPHILS % (MANUAL) 0 % (0-2); EOSINOPHILS % (MANUAL) 0 % (0-3); HYPOCHROMASIA 1+; PLATELET ESTIMATE ADEQUATE; PLATELET MORPHOLOGY NORMAL
[2017-07-03] MEDS ORDERED: Levophed 4mg/4mL Inj IV ONE (11:04)
[2017-07-03] MEDS: Vancomycin 1gm in D5W 275ml IVPB SCH (12:36)
--- NOTE | 2017-07-03 12:51 | Pulmonology Progress Note ---
Assessment/Plan Assessment/Plan 1. Respiratory failure. 2. Sepsis with shock. 3. Pneumonia. 4. Anuria. 5. Prostate cancer with suprapubic catheter. 6. Severe Alzheimer dementia. 7. Severe protein-calorie malnutrition. 8. Anemia. 9. Possible acute myocardial infarction. 10. Azotemia. 11. Hyperglycemia. weaning levophed WBC higher on zosyn, vanco u/o better from suprapubic on vent CXR worse lactate high c/w septic shock Subjective ROS Limited/Unobtainable: Yes Allergies: Coded Allergies: No Known Allergies (Verified , 09/26/12) Objective Last 24 Hour Vital Signs Date Time Temp Pulse Resp B/P (MAP) Pulse Ox O2 Delivery O2 Flow Rate FiO2 07/03/17 12:00 70 07/03/17 11:30 89 21 96/67 100 Mechanical Ventilator 70 07/03/17 11:14 87/32 07/03/17 11:00 97/61 07/03/17 11:00 92 22 97/61 100 Mechanical Ventilator 70 07/03/17 10:48 89 20 100 Mechanical Ventilator 70 07/03/17 10:41 86 21 100 Mechanical Ventilator 70 07/03/17 10:40 86 21 70 07/03/17 10:30 89 21 96/67 100 Mechanical Ventilator 70 07/03/17 10:00 92 23 95/60 100 Mechanical Ventilator 70 07/03/17 10:00 95/60 07/03/17 09:30 91 21 113/66 100 Mechanical Ventilator 70 07/03/17 09:28 92 22 70 07/03/17 09:00 102/57 07/03/17 09:00 91 21 102/57 100 Mechanical Ventilator 70 07/03/17 08:30 92 22 98/59 100 Mechanical Ventilator 70 07/03/17 08:00 97 26 110/65 100 Mechanical Ventilator 70 07/03/17 08:00 110/65 07/03/17 08:00 70 07/03/17 07:38 92 07/03/17 07:30 99.2 96 24 111/94 100 Mechanical Ventilator 70 07/03/17 07:14 86 20 100 Mechanical Ventilator 70 07/03/17 07:09 88 20 70 07/03/17 07:08 96/61 07/03/17 07:04 85 20 100 Mechanical Ventilator 70 07/03/17 07:00 86 20 103/68 100 Mechanical Ventilator 70 07/03/17 06:45 87 19 96/61 100 Mechanical Ventilator 70 07/03/17 06:30 88 18 86/55 100 Mechanical Ventilator 70 07/03/17 06:15 89 18 94/59 100 Mechanical Ventilator 70 07/03/17 06:00 91 19 90/59 100 Mechanical Ventilator 70 07/03/17 05:45 91 21 97/61 100 Mechanical Ventilator 70 07/03/17 05:30 91 22 87/57 100 Mechanical Ventilator 70 07/03/17 05:15 91 21 101/59 100 Mechanical Ventilator 70 07/03/17 05:00 88/61 07/03/17 05:00 91 22 88/61 100 Mechanical Ventilator 70 07/03/17 05:00 99 32 70 07/03/17 04:45 101 22 92/59 100 Mechanical Ventilator 70 07/03/17 04:30 89 22 92/59 100 Mechanical Ventilator 70 07/03/17 04:15 90 22 92/59 100 Mechanical Ventilator 70 07/03/17 04:00 91 07/03/17 04:00 99.3 90 22 101/68 100 Mechanical Ventilator 70 07/03/17 04:00 70 07/03/17 04:00 101/63 07/03/17 03:45 90 22 89/60 100 Mechanical Ventilator 70 07/03/17 03:30 92 23 87/60 100 Mechanical Ventilator 70 07/03/17 03:18 91 21 100 Mechanical Ventilator 70 07/03/17 03:16 93/60 07/03/17 03:15 92 22 94/60 100 Mechanical Ventilator 70 07/03/17 03:08 93 23 100 Mechanical Ventilator 70 07/03/17 03:08 93 23 70 07/03/17 03:00 71/44 07/03/17 03:00 93 19 105/66 100 Mechanical Ventilator 70 07/03/17 02:45 99 25 71/44 100 Mechanical Ventilator 70 07/03/17 02:30 98 23 99/75 100 Mechanical Ventilator 70 07/03/17 02:15 94 21 99/75 100 Mechanical Ventilator 70 07/03/17 02:00 93 21 90/60 100 Mechanical Ventilator 70 07/03/17 02:00 90/60 07/03/17 01:45 95 22 87/59 100 Mechanical Ventilator 70 07/03/17 01:30 98 22 92/63 100 Mechanical Ventilator 70 07/03/17 01:15 98 23 112/63 100 Mechanical Ventilator 70 07/03/17 01:00 93/64 07/03/17 01:00 98 21 97/66 100 Mechanical Ventilator 70 07/03/17 00:45 101 22 120/46 100 Mechanical Ventilator 70 07/03/17 00:45 96 24 70 07/03/17 00:30 98 22 88/60 100 Mechanical Ventilator 70 07/03/17 00:15 95 22 88/60 100 Mechanical Ventilator 70 07/03/17 00:00 70 07/03/17 00:00 97.8 94 21 87/58 100 Mechanical Ventilator 70 07/03/17 00:00 94 07/03/17 00:00 87/55 07/02/17 23:45 95 21 101/62 100 Mechanical Ventilator 70 07/02/17 23:30 98 22 91/44 100 Mechanical Ventilator 70 07/02/17 23:15 99 22 85/58 100 Mechanical Ventilator 70 07/02/17 23:00 70 07/02/17 23:00 100 23 90/61 100 Mechanical Ventilator 70 07/02/17 23:00 90/61 07/02/17 22:59 111/67 07/02/17 22:45 105 21 94/63 100 Mechanical Ventilator 80 07/02/17 22:44 106 23 100 Mechanical Ventilator 70 07/02/17 22:35 106 25 100 Mechanical Ventilator 70 07/02/17 22:35 106 25 70 07/02/17 22:30 105 23 93/62 100 Mechanical Ventilator 80 07/02/17 22:15 105 23 93/62 100 Mechanical Ventilator 80 07/02/17 22:00 102 22 90/60 100 Mechanical Ventilator 80 07/02/17 22:00 90/60 07/02/17 22:00 80 07/02/17 21:45 102 21 118/72 100 Mechanical Ventilator 100 07/02/17 21:30 102 21 91/57 100 Mechanical Ventilator 100 07/02/17 21:15 99.5 103 21 102/70 100 Mechanical Ventilator 100 07/02/17 21:01 114 22 80 07/02/17 21:00 100 07/02/17 21:00 113 07/02/17 21:00 88/57 07/02/17 21:00 113 20 107/92 100 Mechanical Ventilator 100 07/02/17 20:15 113 21 101/67 100 Mechanical Ventilator 100 07/02/17 20:10 Mechanical Ventilator 100 07/02/17 20:10 Mechanical Ventilator 100 07/02/17 20:00 95/58 07/02/17 19:55 93/61 07/02/17 19:50 105/66 07/02/17 19:45 94/66 07/02/17 19:40 107/70 07/02/17 19:35 107/70 07/02/17 19:30 108 22 100/65 100 Mechanical Ventilator 100 07/02/17 19:30 77/54 07/02/17 19:25 100/65 07/02/17 19:20 90/58 07/02/17 19:15 88/50 07/02/17 19:10 88/67 07/02/17 19:05 91/65 07/02/17 19:01 117 21 100 07/02/17 19:00 94/63 07/02/17 19:00 122 22 94/63 99 Mechanical Ventilator 100 07/02/17 18:55 159/138 07/02/17 18:50 170/153 07/02/17 18:45 100/61 07/02/17 18:40 138/94 07/02/17 18:35 89/64 07/02/17 18:35 89/51 07/02/17 18:34 134 24 100 07/02/17 18:30 88/71 07/02/17 18:30 100.5 121 22 96/75 95 Mechanical Ventilator 100 07/02/17 18:25 96/74 07/02/17 18:20 80/57 07/02/17 18:15 53/28 07/02/17 18:10 89/51 07/02/17 18:00 124 20 102/81 99 Mechanical Ventilator 100 07/02/17 17:30 99.8 135 23 125/92 99 Mechanical Ventilator 100 07/02/17 17:00 124 20 103/66 95 Mechanical Ventilator 100 07/02/17 17:00 86/51 07/02/17 16:42 136 34 78/55 94 Mechanical Ventilator 100 07/02/17 16:17 130 24 88/40 88 Simple Mask 07/02/17 16:15 130 38 Non-Rebreather 85 Intake and Output 07/03/17 07/04/17 19:00 07:00 Intake Total 711.25 ml Output Total 330 ml Balance 381.25 ml Intake IV Total 711.25 ml Output Urine Total 330 ml Objective G tube, suprapubic cath General Appearance: no acute distress, cachetic Respiratory/Chest: decreased breath sounds Cardiovascular: normal rate, tachycardia Abdomen: soft, non tender Extremities: no edema Neurologic/Psychiatric: unresponsiveness Laboratory Tests 07/02/17 16:33: White Blood Count 22.0H, Red Blood Count 4.34L, Hemoglobin 13.0L, Hematocrit 39.6L, Mean Corpuscular Volume 91, Mean Corpuscular Hemoglobin 30.0, Mean Corpuscular Hemoglobin Concent 32.9, Red Cell Distribution Width 13.1, Platelet Count 430, Mean Platelet Volume 6.9, Neutrophils (%) (Auto) , Lymphocytes (%) ( Auto) , Monocytes (%) (Auto) , Eosinophils (%) (Auto) , Basophils (%) (Auto) , Differential Total Cells Counted 100, Neutrophils % (Manual) 72, Lymphocytes % ( Manual) 15L, Monocytes % (Manual) 6, Eosinophils % (Manual) 0, Basophils % ( Manual) 0, Band Neutrophils 7, Platelet Estimate Adequate, Platelet Morphology Normal, Red Blood Cell Morphology Normal, Sodium Level 134L, Potassium Level 4.8 , Chloride Level 97L, Carbon Dioxide Level 27, Anion Gap 10, Blood Urea Nitrogen 41H, Creatinine 1.1, Estimat Glomerular Filtration Rate , Glucose Level 363H, Lactic Acid Level 3.40H, Calcium Level 9.9, Phosphorus Level 4.6, Magnesium Level 1.9, Total Bilirubin 0.3, Aspartate Amino Transf (AST/SGOT) 14L , Alanine Aminotransferase (ALT/SGPT) 16, Alkaline Phosphatase 107, Total Creatine Kinase 29, Creatine Kinase MB 3.0, Creatine Kinase MB Relative Index 10.3, Troponin I 0.213H, Pro-B-Type Natriuretic Peptide 763H, Total Protein 7.8 , Albumin 2.8L, Globulin 5.0, Albumin/Globulin Ratio 0.6L 07/02/17 16:50: Lactic Acid Level 3.20H 07/02/17 17:53: Arterial Blood pH 7.394, Arterial Blood Partial Pressure CO2 43.1, Arterial Blood Partial Pressure O2 130.3H, Arterial Blood HCO3 25.7, Arterial Blood Oxygen Saturation 98.6H, Arterial Blood Base Excess 0.6, Myron Test Positive 07/02/17 19:15: Urine Color Yellow, Urine Appearance Cloudy, Urine pH 5, Urine Specific Humphreys 1.020, Urine Protein 3+H, Urine Glucose (UA) 1+H, Urine Ketones Negative, Urine Occult Blood 5+H, Urine Nitrite Negative, Urine Bilirubin Negative, Urine Urobilinogen 4H, Urine Leukocyte Esterase 3+H, Urine RBC TntcH, Urine WBC TntcH , Urine Squamous Epithelial Cells None, Urine Bacteria Few 07/03/17 05:35: White Blood Count 25.9*H, Red Blood Count 3.82L, Hemoglobin 11.6L, Hematocrit 34.9L, Mean Corpuscular Volume 91, Mean Corpuscular Hemoglobin 30.4, Mean Corpuscular Hemoglobin Concent 33.3, Red Cell Distribution Width 13.4, Platelet Count 346, Mean Platelet Volume 8.0, Neutrophils (%) (Auto) , Lymphocytes (%) ( Auto) , Monocytes (%) (Auto) , Eosinophils (%) (Auto) , Basophils (%) (Auto) , Differential Total Cells Counted 100, Neutrophils % (Manual) 72, Lymphocytes % ( Manual) 7L, Monocytes % (Manual) 6, Eosinophils % (Manual) 0, Basophils % ( Manual) 0, Band Neutrophils 15H, Platelet Estimate Adequate, Platelet Morphology Normal, Hypochromasia 1+, Anisocytosis 1+, Sodium Level 136, Potassium Level 4.6, Chloride Level 102, Carbon Dioxide Level 24, Anion Gap 11, Blood Urea Nitrogen 39H, Creatinine 1.1, Estimat Glomerular Filtration Rate , Glucose Level 315H, Lactic Acid Level 3.50H, Calcium Level 9.0, Total Bilirubin 0.6, Direct Bilirubin 0.2, Aspartate Amino Transf (AST/SGOT) 16, Alanine Aminotransferase (ALT/SGPT) 12, Alkaline Phosphatase 77, Troponin I 1.491H, Total Protein 6.4, Albumin 2.2L Current Medications Medications (Trade) Dose Ordered Sig/Matt Route PRN Reason Start Time Stop Time Status Last Admin Dose Admin Acetaminophen (Tylenol) 650 mg Q4H PRN GT Mild Pain (1-3) 07/02/17 19:00 08/01/17 18:59 Albuterol/ Ipratropium (Albuterol/ Ipratropium) 3 ml Q4H HHN 07/02/17 19:00 07/07/17 18:59 07/03/17 10:41 Aspirin (ASA) 81 mg DAILY GT 07/03/17 09:00 08/02/17 08:59 07/03/17 09:38 Chlorhexidine Gluconate (Mari-Hex 2%) 1 applic DAILY@2000 TOPIC 07/03/17 20:00 08/02/17 19:59 Dextrose (Dextrose 50%) STAT PRN IV Hypoglycemia 07/02/17 19:00 08/01/17 18:59 Enoxaparin Sodium (Lovenox) 70 mg EVERY 12 HOURS SUBQ 07/03/17 09:00 08/02/17 08:59 07/03/17 09:41 Insulin Aspart (NovoLOG) BEFORE MEALS AND HS SUBQ 07/02/17 21:00 08/01/17 20:59 07/03/17 11:17 Midodrine (Pro-Amatine) 10 mg THREE TIMES A DAY GT 07/03/17 09:00 08/02/17 08:59 07/03/17 12:36 Norepinephrine Bitartrate 4 mg/ Dextrose 250 ml @ 0 mls/hr Q24H IV 07/02/17 21:31 08/01/17 21:30 07/03/17 11:14 Ondansetron HCl (Zofran) 4 mg Q6H PRN GT Nausea & Vomiting 07/02/17 19:00 08/01/17 18:59 Pantoprazole (Protonix) 40 mg DAILY IV 07/03/17 09:00 08/02/17 08:59 07/03/17 09:38 Piperacillin Sod/ Tazobactam Sod 3.375 gm/Dextrose 55 ml @ 13.75 mls/ hr EVERY 8 HOURS IVPB 07/02/17 23:00 07/07/17 22:59 07/03/17 06:02 Sodium Chloride 1,000 ml @ 100 mls/hr Q10H IVLG 07/02/17 20:45 08/01/17 20:44 07/03/17 07:07 Vancomycin HCl (Vanco rx to dose) 1 ea DAILY PRN MISC RX TO DOSE PROTOCOL 07/02/17 19:00 08/01/17 18:59 Vancomycin HCl 1 gm/Dextrose 275 ml @ 183.708 mls/hr Q12HR@0000,1200 IVPB 07/03/17 12:00 07/08/17 11:59 07/03/17 12:36 SABAS KNOTT Jul 03, 2017 12:51
--- NOTE | 2017-07-03 13:27 | General Progress Note ---
Assessment/Plan Problem List: (1) COPD (chronic obstructive pulmonary disease) ICD Codes: J44.9 - Chronic obstructive pulmonary disease SNOMED: 12503173 (2) Suprapubic catheter ICD Codes: Z93.59 - Other cystostomy status SNOMED: 621199737, 896271782 (3) Catheter-associated urinary tract infection ICD Codes: T83.511A - Infection and inflammatory reaction due to indwelling urethral catheter, initial encounter; N39.0 - Urinary tract infection, site not specified SNOMED: 764641402 (4) Anemia ICD Codes: D64.9 - Anemia, unspecified SNOMED: 140350424 (5) Dementia ICD Codes: F03.90 - Unspecified dementia without behavioral disturbance SNOMED: 53301317 (6) Seizure ICD Codes: R56.9 - Unspecified convulsions SNOMED: 69506060 (7) Prostate cancer ICD Codes: C61 - Malignant neoplasm of prostate SNOMED: 527330067 (8) COPD (chronic obstructive pulmonary disease) ICD Codes: J44.9 - Chronic obstructive pulmonary disease, unspecified SNOMED: 88107290 (9) Respiratory distress ICD Codes: R06.03 - Acute respiratory distress SNOMED: 113983599 (10) Sepsis ICD Codes: A41.9 - Sepsis, unspecified organism SNOMED: 36817735 Status: unchanged Assessment/Plan resp failure intubated lyte abnormaility copd r/o asp pna dehyration sepsis leukocytosis supra pubic cath was clogged with no urine output consulted dr mark miller for urology already Subjective ROS Limited/Unobtainable: Yes Allergies: Coded Allergies: No Known Allergies (Verified , 09/26/12) Objective Last 24 Hour Vital Signs Date Time Temp Pulse Resp B/P (MAP) Pulse Ox O2 Delivery O2 Flow Rate FiO2 07/03/17 12:57 99 26 70 07/03/17 12:00 99.4 94 26 114/81 94 Mechanical Ventilator 70 07/03/17 12:00 70 07/03/17 11:30 89 21 96/67 92 Mechanical Ventilator 70 07/03/17 11:14 87/32 07/03/17 11:00 97/61 07/03/17 11:00 92 22 97/61 97 Mechanical Ventilator 70 07/03/17 10:48 89 20 100 Mechanical Ventilator 70 07/03/17 10:41 86 21 100 Mechanical Ventilator 70 07/03/17 10:40 86 21 70 07/03/17 10:30 89 21 96/67 100 Mechanical Ventilator 70 07/03/17 10:00 92 23 95/60 100 Mechanical Ventilator 70 07/03/17 10:00 95/60 07/03/17 09:30 91 21 113/66 100 Mechanical Ventilator 70 07/03/17 09:28 92 22 70 07/03/17 09:00 102/57 07/03/17 09:00 91 21 102/57 100 Mechanical Ventilator 70 07/03/17 08:30 92 22 98/59 100 Mechanical Ventilator 70 07/03/17 08:00 97 26 110/65 100 Mechanical Ventilator 70 07/03/17 08:00 110/65 07/03/17 08:00 70 07/03/17 07:38 92 07/03/17 07:30 99.2 96 24 111/94 100 Mechanical Ventilator 70 07/03/17 07:14 86 20 100 Mechanical Ventilator 70 07/03/17 07:09 88 20 70 07/03/17 07:08 96/61 07/03/17 07:04 85 20 100 Mechanical Ventilator 70 07/03/17 07:00 86 20 103/68 100 Mechanical Ventilator 70 07/03/17 06:45 87 19 96/61 100 Mechanical Ventilator 70 07/03/17 06:30 88 18 86/55 100 Mechanical Ventilator 70 07/03/17 06:15 89 18 94/59 100 Mechanical Ventilator 70 07/03/17 06:00 91 19 90/59 100 Mechanical Ventilator 70 07/03/17 05:45 91 21 97/61 100 Mechanical Ventilator 70 07/03/17 05:30 91 22 87/57 100 Mechanical Ventilator 70 07/03/17 05:15 91 21 101/59 100 Mechanical Ventilator 70 07/03/17 05:00 88/61 07/03/17 05:00 91 22 88/61 100 Mechanical Ventilator 70 07/03/17 05:00 99 32 70 07/03/17 04:45 101 22 92/59 100 Mechanical Ventilator 70 07/03/17 04:30 89 22 92/59 100 Mechanical Ventilator 70 07/03/17 04:15 90 22 92/59 100 Mechanical Ventilator 70 07/03/17 04:00 91 07/03/17 04:00 99.3 90 22 101/68 100 Mechanical Ventilator 70 07/03/17 04:00 70 07/03/17 04:00 101/63 07/03/17 03:45 90 22 89/60 100 Mechanical Ventilator 70 07/03/17 03:30 92 23 87/60 100 Mechanical Ventilator 70 07/03/17 03:18 91 21 100 Mechanical Ventilator 70 07/03/17 03:16 93/60 07/03/17 03:15 92 22 94/60 100 Mechanical Ventilator 70 07/03/17 03:08 93 23 100 Mechanical Ventilator 70 07/03/17 03:08 93 23 70 07/03/17 03:00 71/44 07/03/17 03:00 93 19 105/66 100 Mechanical Ventilator 70 07/03/17 02:45 99 25 71/44 100 Mechanical Ventilator 70 07/03/17 02:30 98 23 99/75 100 Mechanical Ventilator 70 07/03/17 02:15 94 21 99/75 100 Mechanical Ventilator 70 07/03/17 02:00 93 21 90/60 100 Mechanical Ventilator 70 07/03/17 02:00 90/60 07/03/17 01:45 95 22 87/59 100 Mechanical Ventilator 70 07/03/17 01:30 98 22 92/63 100 Mechanical Ventilator 70 07/03/17 01:15 98 23 112/63 100 Mechanical Ventilator 70 07/03/17 01:00 93/64 07/03/17 01:00 98 21 97/66 100 Mechanical Ventilator 70 07/03/17 00:45 101 22 120/46 100 Mechanical Ventilator 70 07/03/17 00:45 96 24 70 07/03/17 00:30 98 22 88/60 100 Mechanical Ventilator 70 07/03/17 00:15 95 22 88/60 100 Mechanical Ventilator 70 07/03/17 00:00 70 07/03/17 00:00 97.8 94 21 87/58 100 Mechanical Ventilator 70 07/03/17 00:00 94 07/03/17 00:00 87/55 07/02/17 23:45 95 21 101/62 100 Mechanical Ventilator 70 07/02/17 23:30 98 22 91/44 100 Mechanical Ventilator 70 07/02/17 23:15 99 22 85/58 100 Mechanical Ventilator 70 07/02/17 23:00 70 07/02/17 23:00 100 23 90/61 100 Mechanical Ventilator 70 07/02/17 23:00 90/61 07/02/17 22:59 111/67 07/02/17 22:45 105 21 94/63 100 Mechanical Ventilator 80 07/02/17 22:44 106 23 100 Mechanical Ventilator 70 07/02/17 22:35 106 25 100 Mechanical Ventilator 70 07/02/17 22:35 106 25 70 07/02/17 22:30 105 23 93/62 100 Mechanical Ventilator 80 07/02/17 22:15 105 23 93/62 100 Mechanical Ventilator 80 07/02/17 22:00 102 22 90/60 100 Mechanical Ventilator 80 07/02/17 22:00 90/60 07/02/17 22:00 80 07/02/17 21:45 102 21 118/72 100 Mechanical Ventilator 100 07/02/17 21:30 102 21 91/57 100 Mechanical Ventilator 100 07/02/17 21:15 99.5 103 21 102/70 100 Mechanical Ventilator 100 07/02/17 21:01 114 22 80 07/02/17 21:00 100 07/02/17 21:00 113 07/02/17 21:00 88/57 07/02/17 21:00 113 20 107/92 100 Mechanical Ventilator 100 07/02/17 20:15 113 21 101/67 100 Mechanical Ventilator 100 07/02/17 20:10 Mechanical Ventilator 100 07/02/17 20:10 Mechanical Ventilator 100 07/02/17 20:00 95/58 07/02/17 19:55 93/61 07/02/17 19:50 105/66 07/02/17 19:45 94/66 07/02/17 19:40 107/70 07/02/17 19:35 107/70 07/02/17 19:30 108 22 100/65 100 Mechanical Ventilator 100 07/02/17 19:30 77/54 07/02/17 19:25 100/65 07/02/17 19:20 90/58 07/02/17 19:15 88/50 07/02/17 19:10 88/67 07/02/17 19:05 91/65 07/02/17 19:01 117 21 100 07/02/17 19:00 94/63 07/02/17 19:00 122 22 94/63 99 Mechanical Ventilator 100 12/8/17 18:55 159/138 07/02/17 18:50 170/153 07/02/17 18:45 100/61 07/02/17 18:40 138/94 07/02/17 18:35 89/64 07/02/17 18:35 89/51 07/02/17 18:34 134 24 100 07/02/17 18:30 88/71 07/02/17 18:30 100.5 121 22 96/75 95 Mechanical Ventilator 100 07/02/17 18:25 96/74 07/02/17 18:20 80/57 07/02/17 18:15 53/28 07/02/17 18:10 89/51 07/02/17 18:00 124 20 102/81 99 Mechanical Ventilator 100 07/02/17 17:30 99.8 135 23 125/92 99 Mechanical Ventilator 100 07/02/17 17:00 124 20 103/66 95 Mechanical Ventilator 100 07/02/17 17:00 86/51 07/02/17 16:42 136 34 78/55 94 Mechanical Ventilator 100 07/02/17 16:17 130 24 88/40 88 Simple Mask 07/02/17 16:15 130 38 Non-Rebreather 85 Intake and Output 07/03/17 07/04/17 19:00 07:00 Intake Total 711.25 ml Output Total 330 ml Balance 381.25 ml Intake IV Total 711.25 ml Output Urine Total 330 ml Laboratory Tests 07/02/17 16:33: White Blood Count 22.0H, Red Blood Count 4.34L, Hemoglobin 13.0L, Hematocrit 39.6L, Mean Corpuscular Volume 91, Mean Corpuscular Hemoglobin 30.0, Mean Corpuscular Hemoglobin Concent 32.9, Red Cell Distribution Width 13.1, Platelet Count 430, Mean Platelet Volume 6.9, Neutrophils (%) (Auto) , Lymphocytes (%) ( Auto) , Monocytes (%) (Auto) , Eosinophils (%) (Auto) , Basophils (%) (Auto) , Differential Total Cells Counted 100, Neutrophils % (Manual) 72, Lymphocytes % ( Manual) 15L, Monocytes % (Manual) 6, Eosinophils % (Manual) 0, Basophils % ( Manual) 0, Band Neutrophils 7, Platelet Estimate Adequate, Platelet Morphology Normal, Red Blood Cell Morphology Normal, Sodium Level 134L, Potassium Level 4.8 , Chloride Level 97L, Carbon Dioxide Level 27, Anion Gap 10, Blood Urea Nitrogen 41H, Creatinine 1.1, Estimat Glomerular Filtration Rate , Glucose Level 363H, Lactic Acid Level 3.40H, Calcium Level 9.9, Phosphorus Level 4.6, Magnesium Level 1.9, Total Bilirubin 0.3, Aspartate Amino Transf (AST/SGOT) 14L , Alanine Aminotransferase (ALT/SGPT) 16, Alkaline Phosphatase 107, Total Creatine Kinase 29, Creatine Kinase MB 3.0, Creatine Kinase MB Relative Index 10.3, Troponin I 0.213H, Pro-B-Type Natriuretic Peptide 763H, Total Protein 7.8 , Albumin 2.8L, Globulin 5.0, Albumin/Globulin Ratio 0.6L 07/02/17 16:50: Lactic Acid Level 3.20H 07/02/17 17:53: Arterial Blood pH 7.394, Arterial Blood Partial Pressure CO2 43.1, Arterial Blood Partial Pressure O2 130.3H, Arterial Blood HCO3 25.7, Arterial Blood Oxygen Saturation 98.6H, Arterial Blood Base Excess 0.6, Myron Test Positive 07/02/17 19:15: Urine Color Yellow, Urine Appearance Cloudy, Urine pH 5, Urine Specific [place] 1.020, Urine Protein 3+H, Urine Glucose (UA) 1+H, Urine Ketones Negative, Urine Occult Blood 5+H, Urine Nitrite Negative, Urine Bilirubin Negative, Urine Urobilinogen 4H, Urine Leukocyte Esterase 3+H, Urine RBC TntcH, Urine WBC TntcH , Urine Squamous Epithelial Cells None, Urine Bacteria Few 07/03/17 05:35: White Blood Count 25.9*H, Red Blood Count 3.82L, Hemoglobin 11.6L, Hematocrit 34.9L, Mean Corpuscular Volume 91, Mean Corpuscular Hemoglobin 30.4, Mean Corpuscular Hemoglobin Concent 33.3, Red Cell Distribution Width 13.4, Platelet Count 346, Mean Platelet Volume 8.0, Neutrophils (%) (Auto) , Lymphocytes (%) ( Auto) , Monocytes (%) (Auto) , Eosinophils (%) (Auto) , Basophils (%) (Auto) , Differential Total Cells Counted 100, Neutrophils % (Manual) 72, Lymphocytes % ( Manual) 7L, Monocytes % (Manual) 6, Eosinophils % (Manual) 0, Basophils % ( Manual) 0, Band Neutrophils 15H, Platelet Estimate Adequate, Platelet Morphology Normal, Hypochromasia 1+, Anisocytosis 1+, Sodium Level 136, Potassium Level 4.6, Chloride Level 102, Carbon Dioxide Level 24, Anion Gap 11, Blood Urea Nitrogen 39H, Creatinine 1.1, Estimat Glomerular Filtration Rate , Glucose Level 315H, Lactic Acid Level 3.50H, Calcium Level 9.0, Total Bilirubin 0.6, Direct Bilirubin 0.2, Aspartate Amino Transf (AST/SGOT) 16, Alanine Aminotransferase (ALT/SGPT) 12, Alkaline Phosphatase 77, Troponin I 1.491H, Total Protein 6.4, Albumin 2.2L Height (Feet): 6 Weight (Pounds): 153 General Appearance: confused Abdomen: soft Sary Oakes MD Jul 03, 2017 13:27
[2017-07-03] MEDS ORDERED: Succinylcholine 20mg/ml 10ml vial ONE (17:12)
[2017-07-03] MEDS ORDERED: Etomidate 40mg/20ml Inj IV ONE (17:12)
[2017-07-03] MEDS ORDERED: Zemuron 50mg/5ml Inj IV ONE (17:12)
[2017-07-03] MEDS ORDERED: Tubing IV Secondary IV ONE (17:23)
[2017-07-03] MEDS ORDERED: Norco 5mg/325mg tab ORAL PRN (18:45)
--- NOTE | 2017-07-03 19:45 | Consultation ---
DATE OF CONSULTATION: 07/03/2017 CONSULTING PHYSICIAN: Cleve Almonte M.D. REFERRING PHYSICIAN: Sary Oakes M.D. CHIEF COMPLAINT: Respiratory failure, dysphagia, and anemia. HISTORY OF PRESENT ILLNESS: Most of the history is per chart. The patient is an elderly patient, lives in a [place] [facility], history of prostate cancer with suprapubic tenderness, history of dysphagia with a G-tube in place, history of dementia, and COPD, admitted to the hospital with acute shortness of breath requiring intubation in the ER. The patient was transferred to ICU. GI consult was requested for evaluation of anemia and nutrition. PAST MEDICAL HISTORY: 1. COPD. 2. Prostate cancer. 3. Suprapubic catheter placement. 4. Failure to thrive with a G-tube. 5. Multiple urinary tract infections. 6. Seizure disorder. 7. Hyperlipidemia. 8. Anxiety. 9. Glaucoma. 10. Atherosclerotic heart disease. 11. Osteoporosis. PAST SURGICAL HISTORY: History of suprapubic catheter placement and G-tube placement. ALLERGIES: No known drug allergies. MEDICATIONS: Please see medication reconciliation list. SOCIAL HISTORY: Currently lives in a [place] [facility]. No history of tobacco, alcohol, or drug abuse. FAMILY HISTORY: Noncontributory. REVIEW OF SYSTEMS: Unable to obtain. PHYSICAL EXAMINATION: VITAL SIGNS: Temperature is 99.2, pulse is 96, respirations 24, and blood pressure is /94. HEENT: Normocephalic and atraumatic. Sclerae anicteric. NECK: Supple. No evidence of obvious lymphadenopathy. CARDIOVASCULAR: Regular rate and rhythm. Plus S1 and S2. LUNGS: Decreased breath sounds bilaterally . ABDOMEN: Soft. G-tube in place. Bowel sounds are present. Hypoactive. Suprapubic catheter in place. EXTREMITIES: No cyanosis, no clubbing, no edema. LABORATORY DATA: White count is 25, hemoglobin 11.6, hematocrit 34, and platelet count is 346,000. ASSESSMENT AND PLAN: A 76-year-old male with respiratory failure, dementia, prostate cancer, and sepsis. PLAN: Given abdominal exam is normal, given the bowel sounds are present even though hypoactive, we will start low-dose feeding and increase as tolerated. I want to thank, Dr. Sary Oakes, for this kind referral. Cleve Rupinder Almonte DR: TYLER JOB#: [id number] CC: Sary Oakes M.D.; Fax#: [phone]
[2017-07-03] MEDS: Dyna-Hex 2% Top Sol 2oz TOPIC SCH (19:49)
--- NOTE | 2017-07-03 21:01 | General Progress Note ---
Assessment/Plan Problem List: (1) Diabetes mellitus ICD Codes: E11.9 - Type 2 diabetes mellitus without complications SNOMED: 64942633 (2) ATN (acute tubular necrosis) ICD Codes: N17.0 - Acute kidney failure with tubular necrosis SNOMED: 79721150 (3) G tube feedings ICD Codes: Z93.1 - Gastrostomy status SNOMED: 485169518, 916059058 (4) Dementia ICD Codes: F03.90 - Unspecified dementia without behavioral disturbance SNOMED: 31675273 (5) Respiratory distress ICD Codes: R06.03 - Acute respiratory distress SNOMED: 448774917 (6) Suprapubic catheter ICD Codes: Z93.59 - Other cystostomy status SNOMED: 258817301, 932676202 Assessment/Plan add Levemir 8 units bid continue Novolog sliding scale Subjective ROS Limited/Unobtainable: Yes Allergies: Coded Allergies: No Known Allergies (Verified , 09/26/12) Subjective intubated in ICU Objective Last 24 Hour Vital Signs Date Time Temp Pulse Resp B/P (MAP) Pulse Ox O2 Delivery O2 Flow Rate FiO2 07/03/17 19:49 94/54 07/03/17 19:10 95 20 100 Mechanical Ventilator 70 07/03/17 19:02 98 21 98 Mechanical Ventilator 70 07/03/17 18:57 93 21 70 07/03/17 18:30 96 20 102/54 100 Mechanical Ventilator 70 07/03/17 18:30 97 20 90/50 100 Mechanical Ventilator 70 07/03/17 18:00 106 24 93/54 98 Mechanical Ventilator 70 07/03/17 18:00 93/54 07/03/17 17:30 117/87 07/03/17 17:30 99 24 117/87 99 Mechanical Ventilator 70 07/03/17 17:15 124 29 70 07/03/17 17:00 90 22 118/73 90 Mechanical Ventilator 70 07/03/17 17:00 118/73 07/03/17 16:30 96 22 103/74 93 Mechanical Ventilator 70 07/03/17 16:30 103/74 07/03/17 16:00 70 07/03/17 16:00 100/71 07/03/17 16:00 98.9 94 20 100/71 93 Mechanical Ventilator 70 07/03/17 15:53 94 07/03/17 15:30 93 20 119/70 94 Mechanical Ventilator 70 07/03/17 15:30 76/43 07/03/17 15:00 94 20 94/60 100 Mechanical Ventilator 70 07/03/17 15:00 94/60 07/03/17 14:42 94 20 96 Mechanical Ventilator 70 07/03/17 14:35 94 22 93 Mechanical Ventilator 70 07/03/17 14:32 98 28 70 07/03/17 14:30 97 21 107/64 93 Mechanical Ventilator 70 07/03/17 14:00 94/24 07/03/17 14:00 101 24 106/66 94 Mechanical Ventilator 70 07/03/17 13:45 99 24 110/70 94 Mechanical Ventilator 70 07/03/17 13:30 102 26 110/71 94 Mechanical Ventilator 70 07/03/17 13:15 100 23 120/70 93 Mechanical Ventilator 70 07/03/17 13:00 99 23 105/72 94 Mechanical Ventilator 70 07/03/17 13:00 94/23 07/03/17 12:57 99 26 70 07/03/17 12:45 100 23 104/65 93 Mechanical Ventilator 70 07/03/17 12:30 100 24 107/69 92 Mechanical Ventilator 70 07/03/17 12:06 100 07/03/17 12:00 99.4 94 26 114/81 94 Mechanical Ventilator 70 07/03/17 12:00 70 07/03/17 12:00 94/26 07/03/17 11:30 89 21 96/67 92 Mechanical Ventilator 70 07/03/17 11:14 87/32 07/03/17 11:00 97/61 07/03/17 11:00 92 22 97/61 97 Mechanical Ventilator 70 07/03/17 10:48 89 20 100 Mechanical Ventilator 70 07/03/17 10:41 86 21 100 Mechanical Ventilator 70 07/03/17 10:40 86 21 70 07/03/17 10:30 89 21 96/67 100 Mechanical Ventilator 70 07/03/17 10:00 92 23 95/60 100 Mechanical Ventilator 70 07/03/17 10:00 95/60 07/03/17 09:30 91 21 113/66 100 Mechanical Ventilator 70 07/03/17 09:28 92 22 70 07/03/17 09:00 102/57 07/03/17 09:00 91 21 102/57 100 Mechanical Ventilator 70 07/03/17 08:30 92 22 98/59 100 Mechanical Ventilator 70 07/03/17 08:00 97 26 110/65 100 Mechanical Ventilator 70 07/03/17 08:00 110/65 07/03/17 08:00 70 07/03/17 07:38 92 07/03/17 07:30 99.2 96 24 111/94 100 Mechanical Ventilator 70 07/03/17 07:14 86 20 100 Mechanical Ventilator 70 07/03/17 07:09 88 20 70 07/03/17 07:08 96/61 07/03/17 07:04 85 20 100 Mechanical Ventilator 70 07/03/17 07:00 86 20 103/68 100 Mechanical Ventilator 70 07/03/17 06:45 87 19 96/61 100 Mechanical Ventilator 70 07/03/17 06:30 88 18 86/55 100 Mechanical Ventilator 70 07/03/17 06:15 89 18 94/59 100 Mechanical Ventilator 70 07/03/17 06:00 91 19 90/59 100 Mechanical Ventilator 70 07/03/17 05:45 91 21 97/61 100 Mechanical Ventilator 70 07/03/17 05:30 91 22 87/57 100 Mechanical Ventilator 70 07/03/17 05:15 91 21 101/59 100 Mechanical Ventilator 70 07/03/17 05:00 88/61 07/03/17 05:00 91 22 88/61 100 Mechanical Ventilator 70 07/03/17 05:00 99 32 70 07/03/17 04:45 101 22 92/59 100 Mechanical Ventilator 70 07/03/17 04:30 89 22 92/59 100 Mechanical Ventilator 70 07/03/17 04:15 90 22 92/59 100 Mechanical Ventilator 70 07/03/17 04:00 91 07/03/17 04:00 99.3 90 22 101/68 100 Mechanical Ventilator 70 07/03/17 04:00 70 07/03/17 04:00 101/63 07/03/17 03:45 90 22 89/60 100 Mechanical Ventilator 70 07/03/17 03:30 92 23 87/60 100 Mechanical Ventilator 70 07/03/17 03:18 91 21 100 Mechanical Ventilator 70 07/03/17 03:16 93/60 07/03/17 03:15 92 22 94/60 100 Mechanical Ventilator 70 07/03/17 03:08 93 23 100 Mechanical Ventilator 70 07/03/17 03:08 93 23 70 07/03/17 03:00 71/44 07/03/17 03:00 93 19 105/66 100 Mechanical Ventilator 70 07/03/17 02:45 99 25 71/44 100 Mechanical Ventilator 70 07/03/17 02:30 98 23 99/75 100 Mechanical Ventilator 70 07/03/17 02:15 94 21 99/75 100 Mechanical Ventilator 70 07/03/17 02:00 93 21 90/60 100 Mechanical Ventilator 70 07/03/17 02:00 90/60 07/03/17 01:45 95 22 87/59 100 Mechanical Ventilator 70 07/03/17 01:30 98 22 92/63 100 Mechanical Ventilator 70 07/03/17 01:15 98 23 112/63 100 Mechanical Ventilator 70 07/03/17 01:00 93/64 07/03/17 01:00 98 21 97/66 100 Mechanical Ventilator 70 07/03/17 00:45 101 22 120/46 100 Mechanical Ventilator 70 07/03/17 00:45 96 24 70 07/03/17 00:30 98 22 88/60 100 Mechanical Ventilator 70 07/03/17 00:15 95 22 88/60 100 Mechanical Ventilator 70 07/03/17 00:00 70 07/03/17 00:00 97.8 94 21 87/58 100 Mechanical Ventilator 70 07/03/17 00:00 94 07/03/17 00:00 87/55 07/02/17 23:45 95 21 101/62 100 Mechanical Ventilator 70 07/02/17 23:30 98 22 91/44 100 Mechanical Ventilator 70 07/02/17 23:15 99 22 85/58 100 Mechanical Ventilator 70 07/02/17 23:00 70 07/02/17 23:00 100 23 90/61 100 Mechanical Ventilator 70 07/02/17 23:00 90/61 07/02/17 22:59 111/67 07/02/17 22:45 105 21 94/63 100 Mechanical Ventilator 80 07/02/17 22:44 106 23 100 Mechanical Ventilator 70 07/02/17 22:35 106 25 100 Mechanical Ventilator 70 07/02/17 22:35 106 25 70 07/02/17 22:30 105 23 93/62 100 Mechanical Ventilator 80 07/02/17 22:15 105 23 93/62 100 Mechanical Ventilator 80 07/02/17 22:00 102 22 90/60 100 Mechanical Ventilator 80 07/02/17 22:00 90/60 07/02/17 22:00 80 07/02/17 21:45 102 21 118/72 100 Mechanical Ventilator 100 07/02/17 21:30 102 21 91/57 100 Mechanical Ventilator 100 07/02/17 21:15 99.5 103 21 102/70 100 Mechanical Ventilator 100 07/02/17 21:01 114 22 80 07/02/17 21:00 100 07/02/17 21:00 113 07/02/17 21:00 88/57 07/02/17 21:00 113 20 107/92 100 Mechanical Ventilator 100 Intake and Output 07/03/17 07/04/17 19:00 07:00 Intake Total 2206.250 ml Output Total 910 ml Balance 1296.250 ml Intake Free Water 0 ml IV Total 2076.250 ml Tube Feeding 80 ml Blood Product 50 ml Output Urine Total 910 ml Laboratory Tests 07/03/17 05:35: White Blood Count 25.9*H, Red Blood Count 3.82L, Hemoglobin 11.6L, Hematocrit 34.9L, Mean Corpuscular Volume 91, Mean Corpuscular Hemoglobin 30.4, Mean Corpuscular Hemoglobin Concent 33.3, Red Cell Distribution Width 13.4, Platelet Count 346, Mean Platelet Volume 8.0, Neutrophils (%) (Auto) , Lymphocytes (%) ( Auto) , Monocytes (%) (Auto) , Eosinophils (%) (Auto) , Basophils (%) (Auto) , Differential Total Cells Counted 100, Neutrophils % (Manual) 72, Lymphocytes % ( Manual) 7L, Monocytes % (Manual) 6, Eosinophils % (Manual) 0, Basophils % ( Manual) 0, Band Neutrophils 15H, Platelet Estimate Adequate, Platelet Morphology Normal, Hypochromasia 1+, Anisocytosis 1+, Sodium Level 136, Potassium Level 4.6, Chloride Level 102, Carbon Dioxide Level 24, Anion Gap 11, Blood Urea Nitrogen 39H, Creatinine 1.1, Estimat Glomerular Filtration Rate , Glucose Level 315H, Lactic Acid Level 3.50H, Calcium Level 9.0, Ferritin 99, Total Bilirubin 0.6, Direct Bilirubin 0.2, Aspartate Amino Transf (AST/SGOT) 16 , Alanine Aminotransferase (ALT/SGPT) 12, Alkaline Phosphatase 77, Troponin I 1.491H, Total Protein 6.4, Albumin 2.2L Height (Feet): 6 Weight (Pounds): 153 General Appearance: combative, other - intubated EENT: pale conjunctivae Neck: normal alignment Cardiovascular: normal rate Respiratory/Chest: decreased breath sounds Abdomen: normal bowel sounds Edema: 1+ Arm (L), 1+ Arm (R), 1+ Leg (L), 1+ Leg (R), 1+ Pedal (L), 1+ Pedal ( R), 1+ Generalized Objective Current Medications Medications (Trade) Dose Ordered Sig/Matt Route PRN Reason Start Time Stop Time Status Last Admin Dose Admin Acetaminophen (Tylenol) 650 mg Q4H PRN GT Mild Pain (1-3) 07/02/17 19:00 08/01/17 18:59 Acetaminophen/ Hydrocodone Bitart ([place] 5/325) 1 tab QID PRN ORAL for moderate pain (4-6) 07/03/17 18:45 07/10/17 18:44 Albuterol/ Ipratropium (Albuterol/ Ipratropium) 3 ml Q4H HHN 07/02/17 19:00 07/07/17 18:59 07/03/17 19:01 Aspirin (ASA) 81 mg DAILY GT 07/03/17 09:00 08/02/17 08:59 07/03/17 09:38 Chlorhexidine Gluconate (Mari-Hex 2%) 1 applic DAILY@2000 TOPIC 07/03/17 20:00 08/02/17 19:59 07/03/17 19:49 Dextrose (Dextrose 50%) STAT PRN IV Hypoglycemia 07/02/17 19:00 08/01/17 18:59 Enoxaparin Sodium (Lovenox) 70 mg EVERY 12 HOURS SUBQ 07/03/17 09:00 08/02/17 08:59 07/03/17 09:41 Insulin Aspart (NovoLOG) Q6HR SUBQ 07/04/17 00:00 08/01/17 20:59 Lorazepam (Ativan 2mg/ml 1ml) 0.5 mg Q3HR PRN IV For Anxiety 07/03/17 18:30 07/10/17 18:29 Midodrine (Pro-Amatine) 10 mg THREE TIMES A DAY GT 07/03/17 09:00 08/02/17 08:59 07/03/17 17:53 Norepinephrine Bitartrate 4 mg/ Dextrose 250 ml @ 0 mls/hr Q24H IV 07/02/17 21:31 08/01/17 21:30 07/03/17 19:49 Ondansetron HCl (Zofran) 4 mg Q6H PRN GT Nausea & Vomiting 07/02/17 19:00 08/01/17 18:59 Pantoprazole (Protonix) 40 mg DAILY IV 07/03/17 09:00 08/02/17 08:59 07/03/17 09:38 Piperacillin Sod/ Tazobactam Sod 3.375 gm/Dextrose 55 ml @ 13.75 mls/ hr EVERY 8 HOURS IVPB 07/02/17 23:00 07/07/17 22:59 07/03/17 14:47 Sodium Chloride 1,000 ml @ 100 mls/hr Q10H IVLG 07/02/17 20:45 08/01/17 20:44 07/03/17 18:11 Vancomycin HCl (Vanco rx to dose) 1 ea DAILY PRN MISC RX TO DOSE PROTOCOL 07/02/17 19:00 08/01/17 18:59 Vancomycin HCl 1 gm/Dextrose 275 ml @ 183.708 mls/hr Q12HR@0000,1200 IVPB 07/03/17 12:00 07/08/17 11:59 07/03/17 12:36 Item Value Date Time Bedside Blood Glucose 205 mg/dl H 07/03/17 1657 Bedside Blood Glucose 229 mg/dl H 07/03/17 1117 Bedside Blood Glucose 293 mg/dl H 07/03/17 0630 MARIA EUGENIA AUGUST Jul 03, 2017 21:01
[2017-07-03] MEDS: Levemir Flexpen SUBQ SCH (22:19)
--- NOTE | 2017-07-03 23:15 | Consultation ---
DATE OF CONSULTATION: 07/02/2017 CARDIOLOGY CONSULTATION CONSULTING PHYSICIAN: Jeremie Brooks M.D. REFERRING PHYSICIAN: Sary Oakes M.D. REASON FOR CONSULTATION: Management of septic shock. The patient is seen in the emergency department of [facility]. HISTORY OF PRESENT ILLNESS: The patient is a very unfortunate 76-year-old gentleman, who is a resident of nursing facility, who was brought in by EMS for complication of suprapubic catheter. On arrival to the emergency department, the patient was noticed to have increased respiratory distress. He desaturated down to the oxygen saturation of 70% and was intubated. Initial blood pressure in the emergency department was 78/55 mmHg and pulse rate of 136. Cardiology consultation was made at the request of Dr. Oakes for evaluation and management of the above patient. At the time of my evaluation, there was no 12-lead electrocardiogram, which was ordered and later reviewed. It showed sinus tachycardia. There was no evidence of ST and T-wave abnormalities. The patient was placed on Levophed drip. Admit to the intensive care unit has been requested. PAST MEDICAL HISTORY: According to the records includes history of hypertension, COPD, cerebrovascular accident, dementia, Alzheimer disease, seizure disorder, and weakness. PAST SURGICAL HISTORY: G-tube placement. MEDICATIONS: List of medications in the nursing facility includes, 1. Acetaminophen 650 mg G-tube q.4 h. p.r.n. pain. 2. Albuterol inhaler 0.63 mg inhaler q.4 h. p.r.n. shortness of breath. 3. Cranberry 450 mg G-tube twice daily. 4. Heparin sodium 5000 units subcutaneous q.8 h. 5. Midodrine 10 mg G-tube three times a day. 6. Multivitamin. 7. Ferrous sulfate 15 mL G-tube daily. 8. Omeprazole 20 mg G-tube daily. 9. Zofran 4 mg G-tube q.6 h. p.r.n. nausea and vomiting. 10. MiraLax 17 g G-tube daily p.r.n. constipation. ALLERGIES: No known drug allergies. FAMILY HISTORY: No record for premature coronary artery disease or arrhythmogenic in the first-degree relative. REVIEW OF SYSTEMS: At this time cannot be obtained given the patient being intubated. PHYSICAL EXAMINATION: VITAL SIGNS: In the emergency department, blood pressure was 88/40, pulse of 130, respirations of 24, and O2 saturation of 88% on simple mask pre-intubation and post-intubation, blood pressure was 78/55, respirations of 34, pulse of 136, and O2 saturation 94% on mechanical ventilator and FiO2 of 100%. GENERAL: The patient is a chronically ill appearing, 76-year-old gentleman, intubated at this time. HEENT: Atraumatic and normocephalic. ENT, pupils are equal, round, and reactive to light and accommodation. Bitemporal wasting. NECK: JVP cannot be assessed due to positive inspiratory pressure. CVS: Normal S1 and S2. Tachycardic. I do not appreciate any murmur, gallop, or rub at this time. LUNGS: Bilateral rhonchi, right greater than left. ABDOMEN: Soft, nontender, and nondistended. Presence of a G-tube. Positive bowel sounds. EXTREMITIES: There is no evidence of edema, clubbing, or cyanosis. LABORATORY FINDINGS: WBC was 22,000 with hemoglobin of 13.0, hematocrit of 39.6, and platelet count was 430,000. There were 72% neutrophils, 15% lymphocytes, and 7% bands. Chemistry showed sodium of 134, potassium of 4.8, chloride 97, bicarbonate 27, BUN of 41, creatinine 1.1, and glucose is 363. Troponin-I is 0.213. ProBNP is 763. Chest x-ray showed no cardiomegaly, presence of ET tube, bilateral interstitial edema versus infiltrate, and lung base atelectasis. A 12-lead electrocardiogram was significant for sinus tachycardia. No ST or T-wave abnormalities. ASSESSMENT AND PLAN: The patient is a very unfortunate 76-year-old gentleman, who is seen in Cardiology consultation at the request of Dr. Oakes. This patient is seen in the [facility] Emergency Department. He soon will be transferred to intensive care unit. 1. Septic shock with leukocytosis and bandemia, most likely due to underlying pneumonia, evident on the chest x-ray. Intravenous antibiotic, Pulmonary consultation, possible steroids. From the cardiac standpoint, we will obtain 2D echocardiography to assess left ventricular systolic and diastolic function. Further therapeutic and diagnostic decision will be based on the results of echocardiography. 2. Sinus tachycardia, likely due to hypoxemia/sepsis/hypovolemia/presence of the Levophed drip for hemodynamic support. 3. History of hypertension. All the blood pressure medication on hold. 4. History of cerebrovascular accident. 5. History of dementia. 6. Total amount of time spent in the emergency department of [facility] to evaluate this patient, review of the ECG, and provide plan of care was 45 minutes. I would like to thank, Dr. Oakes for the courtesy of this consultation. Jeremie Brooks M.D. DR: Sylvie JOB#: [id number] CC:
--- NOTE | 2017-07-03 23:59 | Cardiology Progress Note ---
Assessment/Plan Assessment/Plan 1. Septic shock with leukocytosis and bandemia, most likely due to underlying pneumonia, evident on the chest x-ray. 2. Sinus tachycardia, likely due to hypoxemia/sepsis/hypovolemia/presence of the Levophed drip for hemodynamic support. 2D echo is pending. 3. History of hypertension. All the blood pressure medication on hold. 4. History of cerebrovascular accident. 5. Acute respiratory failure. Subjective Subjective Sinus tachycardia at 105. Intubated on levophed gtt 16 mcg. Objective Last 24 Hour Vital Signs Date Time Temp Pulse Resp B/P (MAP) Pulse Ox O2 Delivery O2 Flow Rate FiO2 07/03/17 23:13 102 20 100 Mechanical Ventilator 70 07/03/17 23:08 110 24 99 Mechanical Ventilator 70 07/03/17 23:06 110 30 70 07/03/17 21:23 107 26 70 07/03/17 20:30 110 25 108/68 100 Mechanical Ventilator 70 07/03/17 20:15 109 25 117/71 100 Mechanical Ventilator 70 07/03/17 20:00 107 07/03/17 20:00 70 07/03/17 20:00 97.9 109 24 113/66 100 Mechanical Ventilator 70 07/03/17 19:49 94/54 07/03/17 19:45 111 23 107/65 100 Mechanical Ventilator 70 07/03/17 19:30 103 21 94/54 100 Mechanical Ventilator 70 07/03/17 19:15 97 20 104/61 100 Mechanical Ventilator 70 07/03/17 19:10 95 20 100 Mechanical Ventilator 70 07/03/17 19:02 98 21 98 Mechanical Ventilator 70 07/03/17 19:00 96 20 97/55 100 Mechanical Ventilator 70 07/03/17 18:57 93 21 70 07/03/17 18:30 96 20 102/54 100 Mechanical Ventilator 70 07/03/17 18:30 97 20 90/50 100 Mechanical Ventilator 70 07/03/17 18:00 106 24 93/54 98 Mechanical Ventilator 70 07/03/17 18:00 93/54 07/03/17 17:30 117/87 07/03/17 17:30 99 24 117/87 99 Mechanical Ventilator 70 07/03/17 17:15 124 29 70 07/03/17 17:00 90 22 118/73 90 Mechanical Ventilator 70 07/03/17 17:00 118/73 07/03/17 16:30 96 22 103/74 93 Mechanical Ventilator 70 07/03/17 16:30 103/74 07/03/17 16:00 70 07/03/17 16:00 100/71 07/03/17 16:00 98.9 94 20 100/71 93 Mechanical Ventilator 70 07/03/17 15:53 94 07/03/17 15:30 93 20 119/70 94 Mechanical Ventilator 70 07/03/17 15:30 76/43 07/03/17 15:00 94 20 94/60 100 Mechanical Ventilator 70 07/03/17 15:00 94/60 07/03/17 14:42 94 20 96 Mechanical Ventilator 70 07/03/17 14:35 94 22 93 Mechanical Ventilator 70 07/03/17 14:32 98 28 70 07/03/17 14:30 97 21 107/64 93 Mechanical Ventilator 70 07/03/17 14:00 94/24 07/03/17 14:00 101 24 106/66 94 Mechanical Ventilator 70 07/03/17 13:45 99 24 110/70 94 Mechanical Ventilator 70 07/03/17 13:30 102 26 110/71 94 Mechanical Ventilator 70 07/03/17 13:15 100 23 120/70 93 Mechanical Ventilator 70 07/03/17 13:00 99 23 105/72 94 Mechanical Ventilator 70 07/03/17 13:00 94/23 07/03/17 12:57 99 26 70 07/03/17 12:45 100 23 104/65 93 Mechanical Ventilator 70 07/03/17 12:30 100 24 107/69 92 Mechanical Ventilator 70 07/03/17 12:06 100 07/03/17 12:00 99.4 94 26 114/81 94 Mechanical Ventilator 70 07/03/17 12:00 70 07/03/17 12:00 94/26 07/03/17 11:30 89 21 96/67 92 Mechanical Ventilator 70 07/03/17 11:14 87/32 07/03/17 11:00 97/61 07/03/17 11:00 92 22 97/61 97 Mechanical Ventilator 70 07/03/17 10:48 89 20 100 Mechanical Ventilator 70 07/03/17 10:41 86 21 100 Mechanical Ventilator 70 07/03/17 10:40 86 21 70 07/03/17 10:30 89 21 96/67 100 Mechanical Ventilator 70 07/03/17 10:00 92 23 95/60 100 Mechanical Ventilator 70 07/03/17 10:00 95/60 07/03/17 09:30 91 21 113/66 100 Mechanical Ventilator 70 07/03/17 09:28 92 22 70 07/03/17 09:00 102/57 07/03/17 09:00 91 21 102/57 100 Mechanical Ventilator 70 07/03/17 08:30 92 22 98/59 100 Mechanical Ventilator 70 07/03/17 08:00 97 26 110/65 100 Mechanical Ventilator 70 07/03/17 08:00 110/65 07/03/17 08:00 70 07/03/17 07:38 92 07/03/17 07:30 99.2 96 24 111/94 100 Mechanical Ventilator 70 07/03/17 07:14 86 20 100 Mechanical Ventilator 70 07/03/17 07:09 88 20 70 07/03/17 07:08 96/61 07/03/17 07:04 85 20 100 Mechanical Ventilator 70 07/03/17 07:00 86 20 103/68 100 Mechanical Ventilator 70 07/03/17 06:45 87 19 96/61 100 Mechanical Ventilator 70 07/03/17 06:30 88 18 86/55 100 Mechanical Ventilator 70 07/03/17 06:15 89 18 94/59 100 Mechanical Ventilator 70 07/03/17 06:00 91 19 90/59 100 Mechanical Ventilator 70 07/03/17 05:45 91 21 97/61 100 Mechanical Ventilator 70 07/03/17 05:30 91 22 87/57 100 Mechanical Ventilator 70 07/03/17 05:15 91 21 101/59 100 Mechanical Ventilator 70 07/03/17 05:00 88/61 07/03/17 05:00 91 22 88/61 100 Mechanical Ventilator 70 07/03/17 05:00 99 32 70 07/03/17 04:45 101 22 92/59 100 Mechanical Ventilator 70 07/03/17 04:30 89 22 92/59 100 Mechanical Ventilator 70 07/03/17 04:15 90 22 92/59 100 Mechanical Ventilator 70 07/03/17 04:00 91 07/03/17 04:00 99.3 90 22 101/68 100 Mechanical Ventilator 70 07/03/17 04:00 70 07/03/17 04:00 101/63 07/03/17 03:45 90 22 89/60 100 Mechanical Ventilator 70 07/03/17 03:30 92 23 87/60 100 Mechanical Ventilator 70 07/03/17 03:18 91 21 100 Mechanical Ventilator 70 07/03/17 03:16 93/60 07/03/17 03:15 92 22 94/60 100 Mechanical Ventilator 70 07/03/17 03:08 93 23 100 Mechanical Ventilator 70 07/03/17 03:08 93 23 70 07/03/17 03:00 71/44 07/03/17 03:00 93 19 105/66 100 Mechanical Ventilator 70 07/03/17 02:45 99 25 71/44 100 Mechanical Ventilator 70 07/03/17 02:30 98 23 99/75 100 Mechanical Ventilator 70 07/03/17 02:15 94 21 99/75 100 Mechanical Ventilator 70 07/03/17 02:00 93 21 90/60 100 Mechanical Ventilator 70 07/03/17 02:00 90/60 07/03/17 01:45 95 22 87/59 100 Mechanical Ventilator 70 07/03/17 01:30 98 22 92/63 100 Mechanical Ventilator 70 07/03/17 01:15 98 23 112/63 100 Mechanical Ventilator 70 07/03/17 01:00 93/64 07/03/17 01:00 98 21 97/66 100 Mechanical Ventilator 70 07/03/17 00:45 101 22 120/46 100 Mechanical Ventilator 70 07/03/17 00:45 96 24 70 07/03/17 00:30 98 22 88/60 100 Mechanical Ventilator 70 07/03/17 00:15 95 22 88/60 100 Mechanical Ventilator 70 07/03/17 00:00 70 07/03/17 00:00 97.8 94 21 87/58 100 Mechanical Ventilator 70 07/03/17 00:00 94 07/03/17 00:00 87/55 Intake and Output 07/03/17 07/04/17 19:00 07:00 Intake Total 2226.250 ml 110 ml Output Total 970 ml 150 ml Balance 1256.250 ml -40 ml Intake Free Water 0 ml 50 ml IV Total 2076.250 ml Tube Feeding 100 ml 60 ml Blood Product 50 ml Output Urine Total 970 ml 150 ml Laboratory Tests Test 07/03/17 05:35 07/03/17 23:15 White Blood Count 25.9 K/UL (4.8-10.8) *H Red Blood Count 3.82 M/UL (4.70-6.10) L Hemoglobin 11.6 G/DL (14.2-18.0) L Hematocrit 34.9 % (42.0-52.0) L Mean Corpuscular Volume 91 FL (80-99) Mean Corpuscular Hemoglobin 30.4 PG (27.0-31.0) Mean Corpuscular Hemoglobin Concent 33.3 G/DL (32.0-36.0) Red Cell Distribution Width 13.4 % (11.6-14.8) Platelet Count 346 K/UL (150-450) Mean Platelet Volume 8.0 FL (6.5-10.1) Neutrophils (%) (Auto) % (45.0-75.0) Lymphocytes (%) (Auto) % (20.0-45.0) Monocytes (%) (Auto) % (1.0-10.0) Eosinophils (%) (Auto) % (0.0-3.0) Basophils (%) (Auto) % (0.0-2.0) Differential Total Cells Counted 100 Neutrophils % (Manual) 72 % (45-75) Lymphocytes % (Manual) 7 % (20-45) L Monocytes % (Manual) 6 % (1-10) Eosinophils % (Manual) 0 % (0-3) Basophils % (Manual) 0 % (0-2) Band Neutrophils 15 % (0-8) H Platelet Estimate Adequate Platelet Morphology Normal Hypochromasia 1+ Anisocytosis 1+ Sodium Level 136 MMOL/L (136-145) Potassium Level 4.6 MMOL/L (3.5-5.1) Chloride Level 102 MMOL/L (98-107) Carbon Dioxide Level 24 MMOL/L (21-32) Anion Gap 11 mmol/L (5-15) Blood Urea Nitrogen 39 mg/dL (7-18) H Creatinine 1.1 MG/DL (0.55-1.30) Estimat Glomerular Filtration Rate mL/min (>60) Glucose Level 315 MG/DL (74-106) H Lactic Acid Level 3.50 mmol/L (0.66-2.22) H Calcium Level 9.0 MG/DL (8.5-10.1) Ferritin 99 NG/ML (8-388) Total Bilirubin 0.6 MG/DL (0.2-1.0) Direct Bilirubin 0.2 MG/DL (0.0-0.3) Aspartate Amino Transf (AST/SGOT) 16 U/L (15-37) Alanine Aminotransferase (ALT/SGPT) 12 U/L (12-78) Alkaline Phosphatase 77 U/L (46-116) Troponin I 1.491 ng/mL (0.000-0.056) Total Protein 6.4 G/DL (6.4-8.2) Albumin 2.2 G/DL (3.4-5.0) L Vancomycin Level Trough Pending Objective GENERAL: The patient is a chronically ill appearing, 76-year-old gentleman, intubated at this time. HEENT: Atraumatic and normocephalic. ENT, pupils are equal, round, and reactive to light and accommodation. Bitemporal wasting. NECK: JVP cannot be assessed due to positive inspiratory pressure. CVS: Normal S1 and S2. Tachycardic. I do not appreciate any murmur, gallop, or rub at this time. LUNGS: Bilateral rhonchi, right greater than left. ABDOMEN: Soft, nontender, and nondistended. Presence of a G-tube. Positive bowel sounds. EXTREMITIES: There is no evidence of edema, clubbing, or cyanosis. FRANCISCO SPAIN Jul 03, 2017 23:58
[2017-07-04] VITALS (77 sets, daily range): BP systolic 60–136; BP diastolic 45–90
[2017-07-04] MEDS: NovoLOG Insulin Flexpen SUBQ SCH ×4 (00:01→18:08)
[2017-07-04] MEDS: Vancomycin 1gm in D5W 275ml IVPB SCH ×2 (00:36→12:30)
[2017-07-04] MEDS: Albuterol/Ipratropium 3ml neb HHN SCH ×6 (03:52→23:38)
--- NOTE | 2017-07-04 05:49 | General Progress Note ---
Assessment/Plan Problem List: (1) Diabetes mellitus ICD Codes: E11.9 - Type 2 diabetes mellitus without complications SNOMED: 78907542 (2) ATN (acute tubular necrosis) ICD Codes: N17.0 - Acute kidney failure with tubular necrosis SNOMED: 91283550 (3) G tube feedings ICD Codes: Z93.1 - Gastrostomy status SNOMED: 894406041, 041635061 (4) Dementia ICD Codes: F03.90 - Unspecified dementia without behavioral disturbance SNOMED: 90530147 (5) Respiratory distress ICD Codes: R06.03 - Acute respiratory distress SNOMED: 990251243 (6) Suprapubic catheter ICD Codes: Z93.59 - Other cystostomy status SNOMED: 607199915, 388464106 Assessment/Plan continue Levemir 8 units bid continue Novolog sliding scale Subjective ROS Limited/Unobtainable: Yes Allergies: Coded Allergies: No Known Allergies (Verified , 09/26/12) Subjective intubated in ICU Objective Last 24 Hour Vital Signs Date Time Temp Pulse Resp B/P (MAP) Pulse Ox O2 Delivery O2 Flow Rate FiO2 07/04/17 05:08 107 26 70 07/04/17 03:59 109 24 100 Mechanical Ventilator 70 07/04/17 03:53 109 25 99 Mechanical Ventilator 70 07/04/17 03:52 107 26 70 07/04/17 03:30 105 23 106/62 100 Mechanical Ventilator 70 07/04/17 03:15 104 22 102/64 100 Mechanical Ventilator 70 07/04/17 03:00 104 22 98/59 100 Mechanical Ventilator 70 07/04/17 02:45 105 22 99/60 100 Mechanical Ventilator 70 07/04/17 02:30 104 22 98/58 100 Mechanical Ventilator 70 07/04/17 02:15 104 21 97/55 100 Mechanical Ventilator 70 07/04/17 02:00 105 21 97/59 100 Mechanical Ventilator 70 07/04/17 02:00 96/60 07/04/17 01:45 104 23 95/57 100 Mechanical Ventilator 70 07/04/17 01:30 106 23 96/60 100 Mechanical Ventilator 70 07/04/17 01:20 105 21 70 07/04/17 01:15 105 21 96/57 100 Mechanical Ventilator 70 07/04/17 01:00 105 22 99/58 100 Mechanical Ventilator 70 07/04/17 01:00 99/58 07/04/17 00:45 105 21 98/57 100 Mechanical Ventilator 70 07/04/17 00:30 105 20 99/58 100 Mechanical Ventilator 70 07/04/17 00:15 104 20 97/62 100 Mechanical Ventilator 70 07/04/17 00:06 101/61 07/04/17 00:00 104 20 101/61 100 Mechanical Ventilator 70 07/04/17 00:00 70 07/04/17 00:00 105 07/04/17 00:00 101/61 07/03/17 23:45 106 20 101/61 100 Mechanical Ventilator 70 07/03/17 23:30 107 20 100/61 100 Mechanical Ventilator 70 07/03/17 23:15 105 20 98/66 100 Mechanical Ventilator 70 07/03/17 23:13 102 20 100 Mechanical Ventilator 70 07/03/17 23:08 110 24 99 Mechanical Ventilator 70 07/03/17 23:06 110 30 70 07/03/17 23:00 108 21 112/66 100 Mechanical Ventilator 70 07/03/17 23:00 112/56 07/03/17 22:45 107 23 107/63 100 Mechanical Ventilator 70 07/03/17 22:30 107 24 107/63 100 Mechanical Ventilator 70 07/03/17 22:15 108 23 100/59 100 Mechanical Ventilator 70 07/03/17 22:00 100/59 07/03/17 22:00 107 24 100/59 100 Mechanical Ventilator 70 07/03/17 21:45 107 24 107/59 100 Mechanical Ventilator 70 07/03/17 21:30 110 26 106/64 100 Mechanical Ventilator 70 07/03/17 21:23 107 26 70 07/03/17 21:15 109 26 104/70 100 Mechanical Ventilator 70 07/03/17 21:00 109 26 104/64 100 Mechanical Ventilator 70 07/03/17 21:00 104/64 07/03/17 20:45 110 25 108/68 100 Mechanical Ventilator 70 07/03/17 20:30 110 25 108/68 100 Mechanical Ventilator 70 07/03/17 20:15 109 25 117/71 100 Mechanical Ventilator 70 07/03/17 20:00 107 07/03/17 20:00 70 07/03/17 20:00 97.9 109 24 113/66 100 Mechanical Ventilator 70 07/03/17 20:00 113/66 07/03/17 19:49 94/54 07/03/17 19:45 111 23 107/65 100 Mechanical Ventilator 70 07/03/17 19:30 103 21 94/54 100 Mechanical Ventilator 70 07/03/17 19:15 97 20 104/61 100 Mechanical Ventilator 70 07/03/17 19:10 95 20 100 Mechanical Ventilator 70 07/03/17 19:02 98 21 98 Mechanical Ventilator 70 07/03/17 19:00 96 20 97/55 100 Mechanical Ventilator 70 07/03/17 19:00 97/55 07/03/17 18:57 93 21 70 07/03/17 18:30 96 20 102/54 100 Mechanical Ventilator 70 07/03/17 18:30 97 20 90/50 100 Mechanical Ventilator 70 07/03/17 18:00 106 24 93/54 98 Mechanical Ventilator 70 07/03/17 18:00 93/54 07/03/17 17:30 117/87 07/03/17 17:30 99 24 117/87 99 Mechanical Ventilator 70 07/03/17 17:15 124 29 70 07/03/17 17:00 90 22 118/73 90 Mechanical Ventilator 70 07/03/17 17:00 118/73 07/03/17 16:30 96 22 103/74 93 Mechanical Ventilator 70 07/03/17 16:30 103/74 07/03/17 16:00 70 07/03/17 16:00 100/71 07/03/17 16:00 98.9 94 20 100/71 93 Mechanical Ventilator 70 07/03/17 15:53 94 07/03/17 15:30 93 20 119/70 94 Mechanical Ventilator 70 07/03/17 15:30 76/43 07/03/17 15:00 94 20 94/60 100 Mechanical Ventilator 70 07/03/17 15:00 94/60 07/03/17 14:42 94 20 96 Mechanical Ventilator 70 07/03/17 14:35 94 22 93 Mechanical Ventilator 70 07/03/17 14:32 98 28 70 07/03/17 14:30 97 21 107/64 93 Mechanical Ventilator 70 07/03/17 14:00 94/24 07/03/17 14:00 101 24 106/66 94 Mechanical Ventilator 70 07/03/17 13:45 99 24 110/70 94 Mechanical Ventilator 70 07/03/17 13:30 102 26 110/71 94 Mechanical Ventilator 70 07/03/17 13:15 100 23 120/70 93 Mechanical Ventilator 70 07/03/17 13:00 99 23 105/72 94 Mechanical Ventilator 70 07/03/17 13:00 94/23 07/03/17 12:57 99 26 70 07/03/17 12:45 100 23 104/65 93 Mechanical Ventilator 70 07/03/17 12:30 100 24 107/69 92 Mechanical Ventilator 70 07/03/17 12:06 100 07/03/17 12:00 99.4 94 26 114/81 94 Mechanical Ventilator 70 07/03/17 12:00 70 07/03/17 12:00 94/26 07/03/17 11:30 89 21 96/67 92 Mechanical Ventilator 70 07/03/17 11:14 87/32 07/03/17 11:00 97/61 07/03/17 11:00 92 22 97/61 97 Mechanical Ventilator 70 07/03/17 10:48 89 20 100 Mechanical Ventilator 70 07/03/17 10:41 86 21 100 Mechanical Ventilator 70 07/03/17 10:40 86 21 70 07/03/17 10:30 89 21 96/67 100 Mechanical Ventilator 70 07/03/17 10:00 92 23 95/60 100 Mechanical Ventilator 70 07/03/17 10:00 95/60 07/03/17 09:30 91 21 113/66 100 Mechanical Ventilator 70 07/03/17 09:28 92 22 70 07/03/17 09:00 102/57 07/03/17 09:00 91 21 102/57 100 Mechanical Ventilator 70 07/03/17 08:30 92 22 98/59 100 Mechanical Ventilator 70 07/03/17 08:00 97 26 110/65 100 Mechanical Ventilator 70 07/03/17 08:00 110/65 07/03/17 08:00 70 07/03/17 07:38 92 07/03/17 07:30 99.2 96 24 111/94 100 Mechanical Ventilator 70 07/03/17 07:14 86 20 100 Mechanical Ventilator 70 07/03/17 07:09 88 20 70 07/03/17 07:08 96/61 07/03/17 07:04 85 20 100 Mechanical Ventilator 70 07/03/17 07:00 86 20 103/68 100 Mechanical Ventilator 70 07/03/17 06:45 87 19 96/61 100 Mechanical Ventilator 70 07/03/17 06:30 88 18 86/55 100 Mechanical Ventilator 70 07/03/17 06:15 89 18 94/59 100 Mechanical Ventilator 70 07/03/17 06:00 91 19 90/59 100 Mechanical Ventilator 70 Laboratory Tests 07/03/17 23:15: Vancomycin Level Trough 13.8H Height (Feet): 6 Weight (Pounds): 153 General Appearance: moderate distress EENT: pale conjunctivae Neck: normal alignment Cardiovascular: normal rate Respiratory/Chest: decreased breath sounds Abdomen: normal bowel sounds Objective Current Medications Medications (Trade) Dose Ordered Sig/Matt Route PRN Reason Start Time Stop Time Status Last Admin Dose Admin Acetaminophen (Tylenol) 650 mg Q4H PRN GT Mild Pain (1-3) 07/02/17 19:00 08/01/17 18:59 Acetaminophen/ Hydrocodone Bitart (Fillmore 5/325) 1 tab QID PRN ORAL for moderate pain (4-6) 07/03/17 18:45 07/10/17 18:44 Albuterol/ Ipratropium (Albuterol/ Ipratropium) 3 ml Q4H HHN 07/02/17 19:00 07/07/17 18:59 07/04/17 03:52 Aspirin (ASA) 81 mg DAILY GT 07/03/17 09:00 08/02/17 08:59 07/03/17 09:38 Chlorhexidine Gluconate (Mari-Hex 2%) 1 applic DAILY@2000 TOPIC 07/03/17 20:00 08/02/17 19:59 07/03/17 19:49 Dextrose (Dextrose 50%) STAT PRN IV Hypoglycemia 07/02/17 19:00 08/01/17 18:59 Enoxaparin Sodium (Lovenox) 70 mg EVERY 12 HOURS SUBQ 07/03/17 09:00 08/02/17 08:59 07/03/17 21:05 Insulin Aspart (NovoLOG) Q6HR SUBQ 07/04/17 00:00 08/01/17 20:59 07/04/17 00:01 Insulin Detemir (Levemir) 8 units BID SUBQ 07/03/17 22:00 08/02/17 21:59 07/03/17 22:19 Lorazepam (Ativan 2mg/ml 1ml) 0.5 mg Q3HR PRN IV For Anxiety 07/03/17 18:30 07/10/17 18:29 Midodrine (Pro-Amatine) 10 mg THREE TIMES A DAY GT 07/03/17 09:00 08/02/17 08:59 07/03/17 17:53 Norepinephrine Bitartrate 4 mg/ Dextrose 250 ml @ 0 mls/hr Q24H IV 07/02/17 21:31 08/01/17 21:30 07/04/17 00:06 Ondansetron HCl (Zofran) 4 mg Q6H PRN GT Nausea & Vomiting 07/02/17 19:00 08/01/17 18:59 Pantoprazole (Protonix) 40 mg DAILY IV 07/03/17 09:00 08/02/17 08:59 07/03/17 09:38 Piperacillin Sod/ Tazobactam Sod 3.375 gm/Dextrose 55 ml @ 13.75 mls/ hr EVERY 8 HOURS IVPB 07/02/17 23:00 07/07/17 22:59 07/03/17 21:39 Sodium Chloride 1,000 ml @ 100 mls/hr Q10H IVLG 07/02/17 20:45 08/01/17 20:44 07/03/17 18:11 Vancomycin HCl (Vanco rx to dose) 1 ea DAILY PRN MISC RX TO DOSE PROTOCOL 07/02/17 19:00 08/01/17 18:59 Vancomycin HCl 1 gm/Dextrose 275 ml @ 183.708 mls/hr Q12HR@0000,1200 IVPB 07/03/17 12:00 07/08/17 11:59 07/04/17 00:36 Item Value Date Time Bedside Blood Glucose 189 mg/dl H 07/04/17 0001 Bedside Blood Glucose 168 mg/dl H 07/03/179 Bedside Blood Glucose 205 mg/dl H 07/03/17 1657 Bedside Blood Glucose 229 mg/dl H 07/03/17 1117 MARIA EUGENIA AUGUST Jul 04, 2017 05:49
[2017-07-04 05:55] LABS: BASOPHILS % (AUTO) 0.7 % (0.0-2.0); EOSINOPHILS % (AUTO) 0.9 % (0.0-3.0); LYMPHOCYTES % (AUTO) 7.2 % (20.0-45.0); MEAN CORPUSCULAR HEMOGLOBIN 30.3 PG (27.0-31.0); MEAN CORPUSCULAR HGB CONC 33.4 G/DL (32.0-36.0); MEAN CORPUSCULAR VOLUME 91 FL (80-99); MEAN PLATELET VOLUME 8.7 FL (6.5-10.1); MONOCYTES % (AUTO) 7.4 % (1.0-10.0); NEUTROPHILS % (AUTO) 83.8 % (45.0-75.0); PLATELET COUNT 283 K/UL (150-450); RED BLOOD COUNT 3.33 M/UL (4.70-6.10); RED CELL DISTRIBUTION WIDTH 13.1 % (11.6-14.8)
[2017-07-04] MEDS: Zoysn 3.37gm in D5W 55ml IVPB SCH ×3 (06:01→22:02)
[2017-07-04 06:24] LABS: PSA TOTAL 13.3 ng/mL (0.13-4.0); THYROID STIMULATING HORMONE 0.693 uiU/mL (0.358-3.740)
[2017-07-04 06:26] LABS: REFLEX LACTIC ACID YES OR NO YES
--- NOTE | 2017-07-04 08:13 | General Progress Note ---
Assessment/Plan Problem List: (1) G tube feedings ICD Codes: Z93.1 - Gastrostomy status SNOMED: 461015516, 561083365 (2) Diabetes mellitus ICD Codes: E11.9 - Type 2 diabetes mellitus without complications SNOMED: 93102627 (3) Dementia ICD Codes: F03.90 - Unspecified dementia without behavioral disturbance SNOMED: 36583021 (4) Anemia ICD Codes: D64.9 - Anemia, unspecified SNOMED: 969360004 (5) Dysphagia ICD Codes: R13.10 - Dysphagia SNOMED: 31301521 (6) Prostate cancer ICD Codes: C61 - Malignant neoplasm of prostate SNOMED: 824339791 Assessment/Plan GTF at 40 cc, increase as tolerated to 55 monitor H&H ppi for GI prophylaxis Subjective ROS Limited/Unobtainable: No Allergies: Coded Allergies: No Known Allergies (Verified , 09/26/12) Objective Last 24 Hour Vital Signs Date Time Temp Pulse Resp B/P (MAP) Pulse Ox O2 Delivery O2 Flow Rate FiO2 07/04/17 07:00 100/58 07/04/17 07:00 108 24 100/58 100 Mechanical Ventilator 70 07/04/17 06:45 110 26 100/58 99 Mechanical Ventilator 70 07/04/17 06:30 114 26 111/63 99 Mechanical Ventilator 70 07/04/17 06:15 111 26 111/63 100 Mechanical Ventilator 70 07/04/17 06:01 92/52 07/04/17 06:00 92/52 07/04/17 06:00 111 26 104/67 99 Mechanical Ventilator 70 07/04/17 05:45 110 23 114/72 99 Mechanical Ventilator 70 07/04/17 05:30 109 23 92/52 100 Mechanical Ventilator 70 07/04/17 05:15 104 22 89/50 99 Mechanical Ventilator 70 07/04/17 05:08 107 26 70 07/04/17 05:00 91/54 07/04/17 05:00 105 23 91/54 100 Mechanical Ventilator 70 07/04/17 04:45 115 26 99/58 99 Mechanical Ventilator 70 07/04/17 04:30 118 28 60/48 99 Mechanical Ventilator 70 07/04/17 04:15 116 24 107/60 97 Mechanical Ventilator 70 07/04/17 04:00 108 07/04/17 04:00 70 07/04/17 04:00 98.8 106 24 107/60 100 Mechanical Ventilator 70 07/04/17 04:00 107/60 07/04/17 03:59 109 24 100 Mechanical Ventilator 70 07/04/17 03:53 109 25 99 Mechanical Ventilator 70 07/04/17 03:52 107 26 70 07/04/17 03:45 107 24 100/68 100 Mechanical Ventilator 70 07/04/17 03:30 105 23 106/62 100 Mechanical Ventilator 70 07/04/17 03:15 104 22 102/64 100 Mechanical Ventilator 70 07/04/17 03:00 98/59 07/04/17 03:00 104 22 98/59 100 Mechanical Ventilator 70 07/04/17 02:45 105 22 99/60 100 Mechanical Ventilator 70 07/04/17 02:30 104 22 98/58 100 Mechanical Ventilator 70 07/04/17 02:15 104 21 97/55 100 Mechanical Ventilator 70 07/04/17 02:00 105 21 97/59 100 Mechanical Ventilator 70 07/04/17 02:00 96/60 07/04/17 01:45 104 23 95/57 100 Mechanical Ventilator 70 07/04/17 01:30 106 23 96/60 100 Mechanical Ventilator 70 07/04/17 01:20 105 21 70 07/04/17 01:15 105 21 96/57 100 Mechanical Ventilator 70 07/04/17 01:00 105 22 99/58 100 Mechanical Ventilator 70 07/04/17 01:00 99/58 07/04/17 00:45 105 21 98/57 100 Mechanical Ventilator 70 07/04/17 00:30 105 20 99/58 100 Mechanical Ventilator 70 07/04/17 00:15 104 20 97/62 100 Mechanical Ventilator 70 07/04/17 00:06 101/61 07/04/17 00:00 104 20 101/61 100 Mechanical Ventilator 70 07/04/17 00:00 70 07/04/17 00:00 105 07/04/17 00:00 101/61 07/03/17 23:45 106 20 101/61 100 Mechanical Ventilator 70 07/03/17 23:30 107 20 100/61 100 Mechanical Ventilator 70 07/03/17 23:15 105 20 98/66 100 Mechanical Ventilator 70 07/03/17 23:13 102 20 100 Mechanical Ventilator 70 07/03/17 23:08 110 24 99 Mechanical Ventilator 70 07/03/17 23:06 110 30 70 07/03/17 23:00 108 21 112/66 100 Mechanical Ventilator 70 07/03/17 23:00 112/56 07/03/17 22:45 107 23 107/63 100 Mechanical Ventilator 70 07/03/17 22:30 107 24 107/63 100 Mechanical Ventilator 70 07/03/17 22:15 108 23 100/59 100 Mechanical Ventilator 70 07/03/17 22:00 100/59 07/03/17 22:00 107 24 100/59 100 Mechanical Ventilator 70 07/03/17 21:45 107 24 107/59 100 Mechanical Ventilator 70 07/03/17 21:30 110 26 106/64 100 Mechanical Ventilator 70 07/03/17 21:23 107 26 70 07/03/17 21:15 109 26 104/70 100 Mechanical Ventilator 70 07/03/17 21:00 109 26 104/64 100 Mechanical Ventilator 70 07/03/17 21:00 104/64 07/03/17 20:45 110 25 108/68 100 Mechanical Ventilator 70 07/03/17 20:30 110 25 108/68 100 Mechanical Ventilator 70 07/03/17 20:15 109 25 117/71 100 Mechanical Ventilator 70 07/03/17 20:00 107 07/03/17 20:00 70 07/03/17 20:00 97.9 109 24 113/66 100 Mechanical Ventilator 70 07/03/17 20:00 113/66 07/03/17 19:49 94/54 07/03/17 19:45 111 23 107/65 100 Mechanical Ventilator 70 07/03/17 19:30 103 21 94/54 100 Mechanical Ventilator 70 07/03/17 19:15 97 20 104/61 100 Mechanical Ventilator 70 07/03/17 19:10 95 20 100 Mechanical Ventilator 70 07/03/17 19:02 98 21 98 Mechanical Ventilator 70 07/03/17 19:00 96 20 97/55 100 Mechanical Ventilator 70 07/03/17 19:00 97/55 07/03/17 18:57 93 21 70 07/03/17 18:30 96 20 102/54 100 Mechanical Ventilator 70 07/03/17 18:30 97 20 90/50 100 Mechanical Ventilator 70 07/03/17 18:00 106 24 93/54 98 Mechanical Ventilator 70 07/03/17 18:00 93/54 07/03/17 17:30 117/87 07/03/17 17:30 99 24 117/87 99 Mechanical Ventilator 70 07/03/17 17:15 124 29 70 07/03/17 17:00 90 22 118/73 90 Mechanical Ventilator 70 07/03/17 17:00 118/73 07/03/17 16:30 96 22 103/74 93 Mechanical Ventilator 70 07/03/17 16:30 103/74 07/03/17 16:00 70 07/03/17 16:00 100/71 07/03/17 16:00 98.9 94 20 100/71 93 Mechanical Ventilator 70 07/03/17 15:53 94 07/03/17 15:30 93 20 119/70 94 Mechanical Ventilator 70 07/03/17 15:30 76/43 07/03/17 15:00 94 20 94/60 100 Mechanical Ventilator 70 07/03/17 15:00 94/60 07/03/17 14:42 94 20 96 Mechanical Ventilator 70 07/03/17 14:35 94 22 93 Mechanical Ventilator 70 07/03/17 14:32 98 28 70 07/03/17 14:30 97 21 107/64 93 Mechanical Ventilator 70 07/03/17 14:00 94/24 07/03/17 14:00 101 24 106/66 94 Mechanical Ventilator 70 07/03/17 13:45 99 24 110/70 94 Mechanical Ventilator 70 07/03/17 13:30 102 26 110/71 94 Mechanical Ventilator 70 07/03/17 13:15 100 23 120/70 93 Mechanical Ventilator 70 07/03/17 13:00 99 23 105/72 94 Mechanical Ventilator 70 07/03/17 13:00 94/23 07/03/17 12:57 99 26 70 07/03/17 12:45 100 23 104/65 93 Mechanical Ventilator 70 07/03/17 12:30 100 24 107/69 92 Mechanical Ventilator 70 07/03/17 12:06 100 07/03/17 12:00 99.4 94 26 114/81 94 Mechanical Ventilator 70 07/03/17 12:00 70 07/03/17 12:00 94/26 07/03/17 11:30 89 21 96/67 92 Mechanical Ventilator 70 07/03/17 11:14 87/32 07/03/17 11:00 97/61 07/03/17 11:00 92 22 97/61 97 Mechanical Ventilator 70 07/03/17 10:48 89 20 100 Mechanical Ventilator 70 07/03/17 10:41 86 21 100 Mechanical Ventilator 70 07/03/17 10:40 86 21 70 07/03/17 10:30 89 21 96/67 100 Mechanical Ventilator 70 07/03/17 10:00 92 23 95/60 100 Mechanical Ventilator 70 07/03/17 10:00 95/60 07/03/17 09:30 91 21 113/66 100 Mechanical Ventilator 70 07/03/17 09:28 92 22 70 07/03/17 09:00 102/57 07/03/17 09:00 91 21 102/57 100 Mechanical Ventilator 70 07/03/17 08:30 92 22 98/59 100 Mechanical Ventilator 70 Laboratory Tests 07/03/17 23:15: Vancomycin Level Trough 13.8H 07/04/17 05:30: White Blood Count 17.0H, Red Blood Count 3.33L, Hemoglobin 10.1L, Hematocrit 30.2L, Mean Corpuscular Volume 91, Mean Corpuscular Hemoglobin 30.3, Mean Corpuscular Hemoglobin Concent 33.4, Red Cell Distribution Width 13.1, Platelet Count 283, Mean Platelet Volume 8.7, Neutrophils (%) (Auto) 83.8H, Lymphocytes ( %) (Auto) 7.2L, Monocytes (%) (Auto) 7.4, Eosinophils (%) (Auto) 0.9, Basophils (%) (Auto) 0.7, Lactic Acid Level 3.50H, Troponin I 1.527H, Prostate Specific Antigen 13.30H, Thyroid Stimulating Hormone (TSH) 0.693 Height (Feet): 6 Weight (Pounds): 158 General Appearance: lethargic EENT: normal ENT inspection Neck: supple Cardiovascular: normal rate Respiratory/Chest: decreased breath sounds Abdomen: normal bowel sounds, non tender, soft Extremities: non-tender DAVID ESTRADA Jul 04, 2017 08:13
[2017-07-04] MEDS: Aspirin Baby 81mg GT SCH (09:07)
[2017-07-04] MEDS: Pantoprazole Inj IV SCH (09:07)
[2017-07-04] MEDS: Midodrine 10mg tab GT SCH ×3 (09:07→18:06)
[2017-07-04] MEDS: Enoxaparin Sodium 300mg/3ml vial SUBQ SCH ×2 (09:08→20:43)
[2017-07-04] MEDS: Levemir Flexpen SUBQ SCH ×2 (09:09→18:10)
[2017-07-04] MEDS: Acetaminophen 650mg/20.3ml GT PRN ×2 (09:12→20:18)
--- NOTE | 2017-07-04 10:28 | Diagnostic Imaging Report ---
Indication: SOB Technique: XRAY CHEST 1 V. Comparison: 07/02/17 Findings: The cardiomediastinal silhouette is unchanged. No new infiltrates are identified. Endotracheal tube and right jugular central line remain. Impression: No significant change from prior examination.
--- NOTE | 2017-07-04 12:48 | Pulmonology Progress Note ---
Assessment/Plan Assessment/Plan 1. Respiratory failure. 2. Sepsis with shock. 3. Pneumonia. 4. Anuria. 5. Prostate cancer with suprapubic catheter. 6. Severe Alzheimer dementia. 7. Severe protein-calorie malnutrition. 8. Anemia. 9. Possible acute myocardial infarction. 10. Azotemia. 11. Hyperglycemia. cont levophed WBC lower, BC+ GPC clusters vent adjusted CXR same cont rx Subjective ROS Limited/Unobtainable: Yes Allergies: Coded Allergies: No Known Allergies (Verified , 09/26/12) Objective Last 24 Hour Vital Signs Date Time Temp Pulse Resp B/P (MAP) Pulse Ox O2 Delivery O2 Flow Rate FiO2 07/04/17 12:00 70 07/04/17 12:00 99.0 103 24 108/61 100 Mechanical Ventilator 70 07/04/17 11:30 104 24 106/68 100 Mechanical Ventilator 70 07/04/17 11:28 102 22 100 Mechanical Ventilator 70 07/04/17 11:15 98 22 100 Mechanical Ventilator 70 07/04/17 11:10 102 23 70 07/04/17 11:00 95 24 96/56 100 Mechanical Ventilator 70 07/04/17 10:30 108 24 99/51 100 Mechanical Ventilator 70 07/04/17 10:00 108 24 100/55 100 Mechanical Ventilator 70 07/04/17 09:45 113 24 97/54 100 Mechanical Ventilator 70 07/04/17 09:42 98.7 07/04/17 09:30 98.7 108 21 94/52 100 Mechanical Ventilator 70 07/04/17 09:15 110 22 99/62 100 Mechanical Ventilator 70 07/04/17 09:00 110 21 70 07/04/17 09:00 111 21 99/57 100 Mechanical Ventilator 70 07/04/17 08:45 112 20 104/63 100 Mechanical Ventilator 70 07/04/17 08:30 99.9 113 25 109/63 100 Mechanical Ventilator 70 07/04/17 08:15 114 25 105/60 100 Mechanical Ventilator 70 07/04/17 08:00 112 25 109/64 100 Mechanical Ventilator 70 07/04/17 08:00 70 07/04/17 08:00 115 07/04/17 07:45 108 24 98/58 100 Mechanical Ventilator 70 07/04/17 07:30 108 24 100/58 100 Mechanical Ventilator 70 07/04/17 07:28 110 20 100 Mechanical Ventilator 70 07/04/17 07:18 115 22 70 07/04/17 07:18 115 20 100 Mechanical Ventilator 70 07/04/17 07:00 100/58 07/04/17 07:00 108 24 100/58 100 Mechanical Ventilator 70 07/04/17 06:45 110 26 100/58 99 Mechanical Ventilator 70 07/04/17 06:30 114 26 111/63 99 Mechanical Ventilator 70 07/04/17 06:15 111 26 111/63 100 Mechanical Ventilator 70 07/04/17 06:01 92/52 07/04/17 06:00 92/52 07/04/17 06:00 111 26 104/67 99 Mechanical Ventilator 70 07/04/17 05:45 110 23 114/72 99 Mechanical Ventilator 70 07/04/17 05:30 109 23 92/52 100 Mechanical Ventilator 70 07/04/17 05:15 104 22 89/50 99 Mechanical Ventilator 70 07/04/17 05:08 107 26 70 07/04/17 05:00 91/54 07/04/17 05:00 105 23 91/54 100 Mechanical Ventilator 70 07/04/17 04:45 115 26 99/58 99 Mechanical Ventilator 70 07/04/17 04:30 118 28 60/48 99 Mechanical Ventilator 70 07/04/17 04:15 116 24 107/60 97 Mechanical Ventilator 70 07/04/17 04:00 108 07/04/17 04:00 70 07/04/17 04:00 98.8 106 24 107/60 100 Mechanical Ventilator 70 07/04/17 04:00 107/60 07/04/17 03:59 109 24 100 Mechanical Ventilator 70 07/04/17 03:53 109 25 99 Mechanical Ventilator 70 07/04/17 03:52 107 26 70 07/04/17 03:45 107 24 100/68 100 Mechanical Ventilator 70 07/04/17 03:30 105 23 106/62 100 Mechanical Ventilator 70 07/04/17 03:15 104 22 102/64 100 Mechanical Ventilator 70 07/04/17 03:00 98/59 07/04/17 03:00 104 22 98/59 100 Mechanical Ventilator 70 07/04/17 02:45 105 22 99/60 100 Mechanical Ventilator 70 07/04/17 02:30 104 22 98/58 100 Mechanical Ventilator 70 07/04/17 02:15 104 21 97/55 100 Mechanical Ventilator 70 07/04/17 02:00 105 21 97/59 100 Mechanical Ventilator 70 07/04/17 02:00 96/60 07/04/17 01:45 104 23 95/57 100 Mechanical Ventilator 70 07/04/17 01:30 106 23 96/60 100 Mechanical Ventilator 70 07/04/17 01:20 105 21 70 07/04/17 01:15 105 21 96/57 100 Mechanical Ventilator 70 07/04/17 01:00 105 22 99/58 100 Mechanical Ventilator 70 07/04/17 01:00 99/58 07/04/17 00:45 105 21 98/57 100 Mechanical Ventilator 70 07/04/17 00:30 105 20 99/58 100 Mechanical Ventilator 70 07/04/17 00:15 104 20 97/62 100 Mechanical Ventilator 70 07/04/17 00:06 101/61 07/04/17 00:00 104 20 101/61 100 Mechanical Ventilator 70 07/04/17 00:00 70 07/04/17 00:00 105 07/04/17 00:00 101/61 07/03/17 23:45 106 20 101/61 100 Mechanical Ventilator 70 07/03/17 23:30 107 20 100/61 100 Mechanical Ventilator 70 07/03/17 23:15 105 20 98/66 100 Mechanical Ventilator 70 07/03/17 23:13 102 20 100 Mechanical Ventilator 70 07/03/17 23:08 110 24 99 Mechanical Ventilator 70 07/03/17 23:06 110 30 70 07/03/17 23:00 108 21 112/66 100 Mechanical Ventilator 70 07/03/17 23:00 112/56 07/03/17 22:45 107 23 107/63 100 Mechanical Ventilator 70 07/03/17 22:30 107 24 107/63 100 Mechanical Ventilator 70 07/03/17 22:15 108 23 100/59 100 Mechanical Ventilator 70 07/03/17 22:00 100/59 07/03/17 22:00 107 24 100/59 100 Mechanical Ventilator 70 07/03/17 21:45 107 24 107/59 100 Mechanical Ventilator 70 07/03/17 21:30 110 26 106/64 100 Mechanical Ventilator 70 07/03/17 21:23 107 26 70 07/03/17 21:15 109 26 104/70 100 Mechanical Ventilator 70 07/03/17 21:00 109 26 104/64 100 Mechanical Ventilator 70 07/03/17 21:00 104/64 07/03/17 20:45 110 25 108/68 100 Mechanical Ventilator 70 07/03/17 20:30 110 25 108/68 100 Mechanical Ventilator 70 07/03/17 20:15 109 25 117/71 100 Mechanical Ventilator 70 07/03/17 20:00 107 07/03/17 20:00 70 07/03/17 20:00 97.9 109 24 113/66 100 Mechanical Ventilator 70 07/03/17 20:00 113/66 07/03/17 19:49 94/54 07/03/17 19:45 111 23 107/65 100 Mechanical Ventilator 70 07/03/17 19:30 103 21 94/54 100 Mechanical Ventilator 70 07/03/17 19:15 97 20 104/61 100 Mechanical Ventilator 70 07/03/17 19:10 95 20 100 Mechanical Ventilator 70 07/03/17 19:02 98 21 98 Mechanical Ventilator 70 07/03/17 19:00 96 20 97/55 100 Mechanical Ventilator 70 07/03/17 19:00 97/55 07/03/17 18:57 93 21 70 07/03/17 18:30 96 20 102/54 100 Mechanical Ventilator 70 07/03/17 18:30 97 20 90/50 100 Mechanical Ventilator 70 07/03/17 18:00 106 24 93/54 98 Mechanical Ventilator 70 07/03/17 18:00 93/54 07/03/17 17:30 117/87 07/03/17 17:30 99 24 117/87 99 Mechanical Ventilator 70 07/03/17 17:15 124 29 70 07/03/17 17:00 90 22 118/73 90 Mechanical Ventilator 70 07/03/17 17:00 118/73 07/03/17 16:30 96 22 103/74 93 Mechanical Ventilator 70 07/03/17 16:30 103/74 07/03/17 16:00 70 07/03/17 16:00 100/71 07/03/17 16:00 98.9 94 20 100/71 93 Mechanical Ventilator 70 07/03/17 15:53 94 07/03/17 15:30 93 20 119/70 94 Mechanical Ventilator 70 07/03/17 15:30 76/43 07/03/17 15:00 94 20 94/60 100 Mechanical Ventilator 70 07/03/17 15:00 94/60 07/03/17 14:42 94 20 96 Mechanical Ventilator 70 07/03/17 14:35 94 22 93 Mechanical Ventilator 70 07/03/17 14:32 98 28 70 07/03/17 14:30 97 21 107/64 93 Mechanical Ventilator 70 07/03/17 14:00 94/24 07/03/17 14:00 101 24 106/66 94 Mechanical Ventilator 70 07/03/17 13:45 99 24 110/70 94 Mechanical Ventilator 70 07/03/17 13:30 102 26 110/71 94 Mechanical Ventilator 70 07/03/17 13:15 100 23 120/70 93 Mechanical Ventilator 70 07/03/17 13:00 99 23 105/72 94 Mechanical Ventilator 70 07/03/17 13:00 94/23 07/03/17 12:57 99 26 70 Intake and Output 07/04/17 07/05/17 19:00 07:00 Intake Total 260 ml Output Total 625 ml Balance -365 ml Intake Free Water 100 ml Tube Feeding 160 ml Output Urine Total 625 ml Objective G tube, suprapubic cath General Appearance: no acute distress, cachetic Respiratory/Chest: decreased breath sounds Cardiovascular: normal rate Microbiology Date/Time Source Procedure Growth Status 07/02/17 16:50 Blood Blood Culture - Preliminary Resulted 07/02/17 16:45 Blood Blood Culture - Preliminary Resulted 07/02/17 22:30 Sputum Gram Stain - Final Resulted 07/02/17 22:30 Sputum Sputum Culture Pending Resulted 07/02/17 19:15 Urine,Suprapubic Urine Culture - Preliminary Resulted 07/02/17 21:00 Sacral Wound Gram Stain - Final Resulted 07/02/17 21:00 Wound Culture - Preliminary Gram Negative Lex Resulted Laboratory Tests 07/03/17 23:15: Vancomycin Level Trough 13.8H 07/04/17 05:30: White Blood Count 17.0H, Red Blood Count 3.33L, Hemoglobin 10.1L, Hematocrit 30.2L, Mean Corpuscular Volume 91, Mean Corpuscular Hemoglobin 30.3, Mean Corpuscular Hemoglobin Concent 33.4, Red Cell Distribution Width 13.1, Platelet Count 283, Mean Platelet Volume 8.7, Neutrophils (%) (Auto) 83.8H, Lymphocytes ( %) (Auto) 7.2L, Monocytes (%) (Auto) 7.4, Eosinophils (%) (Auto) 0.9, Basophils (%) (Auto) 0.7, Lactic Acid Level 3.50H, Troponin I 1.527H, Prostate Specific Antigen 13.30H, Thyroid Stimulating Hormone (TSH) 0.693 Current Medications Medications (Trade) Dose Ordered Sig/Matt Route PRN Reason Start Time Stop Time Status Last Admin Dose Admin Acetaminophen (Tylenol) 650 mg Q4H PRN GT Mild Pain (1-3) 07/02/17 19:00 08/01/17 18:59 07/04/17 09:12 Acetaminophen/ Hydrocodone Bitart ([place]ah 5/325) 1 tab QID PRN ORAL for moderate pain (4-6) 07/03/17 18:45 07/10/17 18:44 Albuterol/ Ipratropium (Albuterol/ Ipratropium) 3 ml Q4H HHN 07/02/17 19:00 07/07/17 18:59 07/04/17 11:43 Aspirin (ASA) 81 mg DAILY GT 07/03/17 09:00 08/02/17 08:59 07/04/17 09:07 Chlorhexidine Gluconate (Mari-Hex 2%) 1 applic DAILY@2000 TOPIC 07/03/17 20:00 08/02/17 19:59 07/03/17 19:49 Dextrose (Dextrose 50%) STAT PRN IV Hypoglycemia 07/02/17 19:00 08/01/17 18:59 Enoxaparin Sodium (Lovenox) 70 mg EVERY 12 HOURS SUBQ 07/03/17 09:00 08/02/17 08:59 07/04/17 09:08 Insulin Aspart (NovoLOG) Q6HR SUBQ 07/04/17 00:00 08/01/17 20:59 07/04/17 12:31 Insulin Detemir (Levemir) 8 units BID SUBQ 07/03/17 22:00 08/02/17 21:59 07/04/17 09:09 Lorazepam (Ativan 2mg/ml 1ml) 0.5 mg Q3HR PRN IV For Anxiety 07/03/17 18:30 07/10/17 18:29 Midodrine (Pro-Amatine) 10 mg THREE TIMES A DAY GT 07/03/17 09:00 08/02/17 08:59 07/04/17 12:30 Norepinephrine Bitartrate 4 mg/ Dextrose 250 ml @ 0 mls/hr Q24H IV 07/02/17 21:31 08/01/17 21:30 07/04/17 06:01 Ondansetron HCl (Zofran) 4 mg Q6H PRN GT Nausea & Vomiting 07/02/17 19:00 08/01/17 18:59 Pantoprazole (Protonix) 40 mg DAILY IV 07/03/17 09:00 08/02/17 08:59 07/04/17 09:07 Piperacillin Sod/ Tazobactam Sod 3.375 gm/Dextrose 55 ml @ 13.75 mls/ hr EVERY 8 HOURS IVPB 07/02/17 23:00 07/07/17 22:59 07/04/17 06:01 Sodium Chloride 1,000 ml @ 100 mls/hr Q10H IVLG 07/02/17 20:45 08/01/17 20:44 07/04/17 12:29 Vancomycin HCl (Vanco rx to dose) 1 ea DAILY PRN MISC RX TO DOSE PROTOCOL 07/02/17 19:00 08/01/17 18:59 Vancomycin HCl 1 gm/Dextrose 275 ml @ 183.708 mls/hr Q12HR@0000,1200 IVPB 07/03/17 12:00 07/08/17 11:59 07/04/17 12:30 SABAS KNOTT Jul 04, 2017 12:47
--- NOTE | 2017-07-04 14:29 | Wound Care Consultation ---
Wound Assessment Wound Assessment #1: Wound Number: 1 Wound Present on Admission: Yes New Wound: No Status Change of Wound: No Wound Location Body Site Modif: mid Wound Location Body Site: other - sacrococcygeal Wound Type: pressure ulcer Bruce Test: Does not Bruce Pressure Ulcer Stage: II - scattered Wound Thickness: Partial Thickness Wound Length: 4.5 Wound Width: 5.5 Wound Depth: less than 0.1 Percent of Wound Prospect/Red: 100 Wound Drainage Odor: None/Absent Tissue Surrounding Wound: Macerated Wound General Appearance: Reddened Wound Assessment #2: Wound Number: 2 Wound Present on Admission: Yes New Wound: No Status Change of Wound: No Wound Location Body Site Modif: left, lateral Wound Location Body Site: metatarsal head - 5th Wound Type: pressure ulcer Bruce Test: Does not Bruce Pressure Ulcer Stage: Deep Tissue Injury Wound Thickness: Full Thickness Wound Length: 3.5 Wound Width: 3.0 Wound Depth: utd Percent of Wound Purple/Maroon: 100 Wound Drainage Amount: None Wound Drainage Odor: None/Absent Tissue Surrounding Wound: Erythemic Wound General Appearance: Reddened - purple Wound Assessment #3: Wound Number: 3 Wound Present on Admission: Yes New Wound: No Status Change of Wound: No Wound Location Body Site: perineal area Wound Type: chemical burn Bruce Test: Does not Bruce Percent of Wound Prospect/Red: 100 Wound Drainage Amount: None Wound Drainage Odor: None/Absent Tissue Surrounding Wound: Erythemic Wound General Appearance: Reddened Wound Assessment #4: Wound Number: 4 Wound Present on Admission: Yes New Wound: No Status Change of Wound: No Wound Location Body Site Modif: left Wound Location Body Site: heel Wound Type: pressure ulcer Bruce Test: Does not Bruce Pressure Ulcer Stage: Unstageable Wound Thickness: Full Thickness Wound Length: 2.0 Wound Width: 2.0 Wound Depth: utd Percent of Wound Bed Yellow/Wh: 100 Wound Drainage Description: Serosanguineous Wound Drainage Amount: Moderate Wound Drainage Odor: None/Absent Tissue Surrounding Wound: Macerated Wound General Appearance: Reddened - dry yellow Wound Assessment #5: Wound Number: 5 Wound Present on Admission: Yes New Wound: No Status Change of Wound: No Wound Location Body Site Modif: right, plantar Wound Location Body Site: foot Wound Type: rash - with dry flaky skin Bruce Test: Does not Bruce Wound Thickness: Partial Thickness Percent of Wound Prospect/Red: 100 Wound Drainage Amount: None Wound Drainage Odor: None/Absent Tissue Surrounding Wound: Intact Wound General Appearance: Reddened Wound Comment #1 Sacrococcygeal scattered stage II pressure ulcer #2 Left lateral 5th metatarsal head DTI pressure ulcer #3 Left heel unstageable pressure ulcer #4 Right plantar foot rashes with dry flaky skin #5 Perineal chemical burn with partial thickness erosion Recommendation -Local wound care per protocol -Keep clean and dry -Turn and reposition -Optimize nutrition -Heel protector on both heels -Offload both heels -Low air loss mattress -Assess and f/u accordingly for any changes ROLANDO CLIFFORD RN Jul 04, 2017 14:29
[2017-07-04] MEDS ORDERED: D5W 275ml ONE (16:25)
--- NOTE | 2017-07-04 19:00 | Consultation ---
DATE OF CONSULTATION: 07/04/2017 INFECTIOUS DISEASE CONSULT CONSULTING PHYSICIAN: Rosales Miramontes M.D. PRIMARY ATTENDING PHYSICIAN: Sary Oakes M.D. REASON FOR CONSULTATION: Septic shock, pneumonia, and UTI. HISTORY OF PRESENT ILLNESS: A 76-year-old white male admitted on 07/02/2017 from [facility] with decrease in urine output, respiratory distress, hypotension. He has a low-grade temperature of 100.5, intubated in the ER, right intrajugular central line was placed, currently in ICU. PAST MEDICAL HISTORY: Significant for Alzheimer's dementia, prostatic cancer, glaucoma, osteoporosis, hypertension, and coronary artery disease. PAST SURGICAL HISTORY: Significant for G-tube placement and suprapubic catheter. ALLERGIES: No known drug allergies. MEDICATIONS: Insulin in two forms Levemir and NovoLog, [place], lorazepam, vancomycin, midodrine, Protonix, Lovenox, aspirin, Zosyn, Levophed, and sodium chloride. SOCIAL HISTORY: [facility] resident with poor mental and functional status. No history of drug abuse. The patient had multiple admissions recently. PHYSICAL EXAMINATION: VITAL SIGNS: Pulse is 108, blood pressure is 100/58, and temperature 98.8. GENERAL APPEARANCE: generalized muscle atrophy, noncommunicative. HEAD AND NECK: Orally intubated, has right intrajugular central line that was placed in the hospital. HEART: Tachycardic. LUNGS: Relatively clear on mechanical ventilator. ABDOMEN: Soft. There is G-tube in place. There is suprapubic catheter in place. EXTREMITIES: No edema. SKIN: Have early-stage ulcers in the sacral area. LABORATORY AND DIAGNOSTIC DATA: Sodium 134, potassium 4.8, chloride 97, bicarb 27, BUN 41, creatinine 1.1, and glucose 363. Albumin is 2.8. WBC 17 coming down from 25.9, hemoglobin 10.1, hematocrit 30.2, and platelet is 283. Blood culture growing gram-positive cocci in cluster. Sputum culture is pending. UA showed WBC of too numerous to count, RBC too numerous to count, leukocyte esterase 3+. Chest x-ray showed pulmonary edema, acute infiltrates that are increased. IMPRESSION: Sepsis with septic shock. The patient seems to have pyuria likely complicated urinary tract infection, may have pneumonia, diabetes mellitus, acute respiratory failure, bacteremia with gram-positive cocci. RECOMMENDATION: We will continue with vancomycin and Zosyn. We will follow up the culture. At the end of my exam, I thank, Dr. Oakes, for involving me in the care of this patient. Rosales Miramontes M.D. DR: CLINTON JOB#: [id number] CC: SANTOSH
[2017-07-04] MEDS: Dyna-Hex 2% Top Sol 2oz TOPIC SCH (20:17)
--- NOTE | 2017-07-04 20:31 | General Progress Note ---
Assessment/Plan Problem List: (1) COPD (chronic obstructive pulmonary disease) ICD Codes: J44.9 - Chronic obstructive pulmonary disease SNOMED: 20432850 (2) Suprapubic catheter ICD Codes: Z93.59 - Other cystostomy status SNOMED: 602481651, 458734845 (3) Catheter-associated urinary tract infection ICD Codes: T83.511A - Infection and inflammatory reaction due to indwelling urethral catheter, initial encounter; N39.0 - Urinary tract infection, site not specified SNOMED: 710486915 (4) Anemia ICD Codes: D64.9 - Anemia, unspecified SNOMED: 245547524 (5) Dementia ICD Codes: F03.90 - Unspecified dementia without behavioral disturbance SNOMED: 67727413 (6) Seizure ICD Codes: R56.9 - Unspecified convulsions SNOMED: 52655771 (7) Prostate cancer ICD Codes: C61 - Malignant neoplasm of prostate SNOMED: 497109963 (8) COPD (chronic obstructive pulmonary disease) ICD Codes: J44.9 - Chronic obstructive pulmonary disease, unspecified SNOMED: 11066083 (9) Respiratory distress ICD Codes: R06.03 - Acute respiratory distress SNOMED: 434205872 (10) Sepsis ICD Codes: A41.9 - Sepsis, unspecified organism SNOMED: 64171007 Status: progressing Assessment/Plan resp failure intubated lyte abnormaility copd r/o asp pna dehyration sepsis leukocytosis supra pubic cath was clogged with no urine output r/o pna abx per id no wheezing Subjective ROS Limited/Unobtainable: Yes Allergies: Coded Allergies: No Known Allergies (Verified , 09/26/12) Objective Last 24 Hour Vital Signs Date Time Temp Pulse Resp B/P (MAP) Pulse Ox O2 Delivery O2 Flow Rate FiO2 07/04/17 19:25 107 21 100 Mechanical Ventilator 50 07/04/17 19:11 109 21 100 Mechanical Ventilator 50 07/04/17 19:08 109 21 50 07/04/17 19:00 108 21 96/53 100 Mechanical Ventilator 60 07/04/17 19:00 96/53 07/04/17 18:30 110 21 98/53 100 Mechanical Ventilator 60 07/04/17 18:00 98/53 07/04/17 18:00 117 24 107/61 100 Mechanical Ventilator 60 07/04/17 17:30 120 24 110/63 100 Mechanical Ventilator 60 07/04/17 17:19 118 24 70 07/04/17 17:00 104/61 07/04/17 17:00 118 24 104/61 100 Mechanical Ventilator 60 07/04/17 16:30 122 24 113/72 100 Mechanical Ventilator 60 07/04/17 16:00 98.7 115 24 106/86 100 Mechanical Ventilator 60 07/04/17 16:00 106/86 07/04/17 16:00 109 07/04/17 15:30 112 24 104/55 100 Mechanical Ventilator 60 07/04/17 15:10 89 20 100 Mechanical Ventilator 70 07/04/17 15:00 107 24 104/57 100 Mechanical Ventilator 60 07/04/17 15:00 107/54 07/04/17 14:47 111 27 100 Mechanical Ventilator 70 07/04/17 14:46 109 23 70 07/04/17 14:30 111 24 104/62 100 Mechanical Ventilator 60 07/04/17 14:30 60 07/04/17 14:00 106 24 105/59 100 Mechanical Ventilator 60 07/04/17 14:00 105/59 07/04/17 13:30 116 24 136/79 100 Mechanical Ventilator 70 07/04/17 13:29 107/58 07/04/17 13:09 109 21 70 07/04/17 13:00 107/58 07/04/17 13:00 109 24 107/58 100 Mechanical Ventilator 70 07/04/17 12:30 104 24 105/61 100 Mechanical Ventilator 70 07/04/17 12:00 115 07/04/17 12:00 70 07/04/17 12:00 111/58 07/04/17 12:00 99.0 103 24 108/61 100 Mechanical Ventilator 70 07/04/17 11:30 104 24 106/68 100 Mechanical Ventilator 70 07/04/17 11:28 102 22 100 Mechanical Ventilator 70 07/04/17 11:15 98 22 100 Mechanical Ventilator 70 07/04/17 11:10 102 23 70 07/04/17 11:00 95 24 96/56 100 Mechanical Ventilator 70 07/04/17 11:00 96/56 07/04/17 10:30 108 24 99/51 100 Mechanical Ventilator 70 07/04/17 10:00 108 24 100/55 100 Mechanical Ventilator 70 07/04/17 10:00 95/52 07/04/17 09:45 113 24 97/54 100 Mechanical Ventilator 70 07/04/17 09:42 98.7 07/04/17 09:30 98.7 108 21 94/52 100 Mechanical Ventilator 70 07/04/17 09:15 110 22 99/62 100 Mechanical Ventilator 70 07/04/17 09:00 110 21 70 07/04/17 09:00 99/62 07/04/17 09:00 111 21 99/57 100 Mechanical Ventilator 70 07/04/17 08:45 112 20 104/63 100 Mechanical Ventilator 70 07/04/17 08:30 99.9 113 25 109/63 100 Mechanical Ventilator 70 07/04/17 08:15 114 25 105/60 100 Mechanical Ventilator 70 07/04/17 08:00 112 25 109/64 100 Mechanical Ventilator 70 07/04/17 08:00 70 07/04/17 08:00 105/60 07/04/17 08:00 115 07/04/17 07:45 108 24 98/58 100 Mechanical Ventilator 70 07/04/17 07:30 108 24 100/58 100 Mechanical Ventilator 70 07/04/17 07:28 110 20 100 Mechanical Ventilator 70 07/04/17 07:18 115 22 70 07/04/17 07:18 115 20 100 Mechanical Ventilator 70 07/04/17 07:00 100/58 07/04/17 07:00 108 24 100/58 100 Mechanical Ventilator 70 07/04/17 06:45 110 26 100/58 99 Mechanical Ventilator 70 07/04/17 06:30 114 26 111/63 99 Mechanical Ventilator 70 07/04/17 06:15 111 26 111/63 100 Mechanical Ventilator 70 07/04/17 06:01 92/52 07/04/17 06:00 92/52 07/04/17 06:00 111 26 104/67 99 Mechanical Ventilator 70 07/04/17 05:45 110 23 114/72 99 Mechanical Ventilator 70 07/04/17 05:30 109 23 92/52 100 Mechanical Ventilator 70 07/04/17 05:15 104 22 89/50 99 Mechanical Ventilator 70 07/04/17 05:08 107 26 70 07/04/17 05:00 91/54 07/04/17 05:00 105 23 91/54 100 Mechanical Ventilator 70 07/04/17 04:45 115 26 99/58 99 Mechanical Ventilator 70 07/04/17 04:30 118 28 60/48 99 Mechanical Ventilator 70 07/04/17 04:15 116 24 107/60 97 Mechanical Ventilator 70 07/04/17 04:00 108 07/04/17 04:00 70 07/04/17 04:00 98.8 106 24 107/60 100 Mechanical Ventilator 70 07/04/17 04:00 107/60 07/04/17 03:59 109 24 100 Mechanical Ventilator 70 07/04/17 03:53 109 25 99 Mechanical Ventilator 70 07/04/17 03:52 107 26 70 07/04/17 03:45 107 24 100/68 100 Mechanical Ventilator 70 07/04/17 03:30 105 23 106/62 100 Mechanical Ventilator 70 07/04/17 03:15 104 22 102/64 100 Mechanical Ventilator 70 07/04/17 03:00 98/59 07/04/17 03:00 104 22 98/59 100 Mechanical Ventilator 70 07/04/17 02:45 105 22 99/60 100 Mechanical Ventilator 70 07/04/17 02:30 104 22 98/58 100 Mechanical Ventilator 70 07/04/17 02:15 104 21 97/55 100 Mechanical Ventilator 70 07/04/17 02:00 105 21 97/59 100 Mechanical Ventilator 70 07/04/17 02:00 96/60 07/04/17 01:45 104 23 95/57 100 Mechanical Ventilator 70 07/04/17 01:30 106 23 96/60 100 Mechanical Ventilator 70 07/04/17 01:20 105 21 70 07/04/17 01:15 105 21 96/57 100 Mechanical Ventilator 70 07/04/17 01:00 105 22 99/58 100 Mechanical Ventilator 70 07/04/17 01:00 99/58 07/04/17 00:45 105 21 98/57 100 Mechanical Ventilator 70 07/04/17 00:30 105 20 99/58 100 Mechanical Ventilator 70 07/04/17 00:15 104 20 97/62 100 Mechanical Ventilator 70 07/04/17 00:06 101/61 07/04/17 00:00 104 20 101/61 100 Mechanical Ventilator 70 07/04/17 00:00 70 07/04/17 00:00 105 07/04/17 00:00 101/61 07/03/17 23:45 106 20 101/61 100 Mechanical Ventilator 70 07/03/17 23:30 107 20 100/61 100 Mechanical Ventilator 70 07/03/17 23:15 105 20 98/66 100 Mechanical Ventilator 70 07/03/17 23:13 102 20 100 Mechanical Ventilator 70 07/03/17 23:08 110 24 99 Mechanical Ventilator 70 07/03/17 23:06 110 30 70 07/03/17 23:00 108 21 112/66 100 Mechanical Ventilator 70 07/03/17 23:00 112/56 07/03/17 22:45 107 23 107/63 100 Mechanical Ventilator 70 07/03/17 22:30 107 24 107/63 100 Mechanical Ventilator 70 07/03/17 22:15 108 23 100/59 100 Mechanical Ventilator 70 07/03/17 22:00 100/59 07/03/17 22:00 107 24 100/59 100 Mechanical Ventilator 70 07/03/17 21:45 107 24 107/59 100 Mechanical Ventilator 70 07/03/17 21:30 110 26 106/64 100 Mechanical Ventilator 70 07/03/17 21:23 107 26 70 07/03/17 21:15 109 26 104/70 100 Mechanical Ventilator 70 07/03/17 21:00 109 26 104/64 100 Mechanical Ventilator 70 07/03/17 21:00 104/64 07/03/17 20:45 110 25 108/68 100 Mechanical Ventilator 70 Intake and Output 07/04/17 07/05/17 19:00 07:00 Intake Total 2784.416 ml Output Total 1400 ml Balance 1384.416 ml Intake Free Water 200 ml IV Total 2029.416 ml Tube Feeding 555 ml Output Urine Total 1400 ml # Bowel Movements 1 Laboratory Tests 07/03/17 23:15: Vancomycin Level Trough 13.8H 07/04/17 05:30: White Blood Count 17.0H, Red Blood Count 3.33L, Hemoglobin 10.1L, Hematocrit 30.2L, Mean Corpuscular Volume 91, Mean Corpuscular Hemoglobin 30.3, Mean Corpuscular Hemoglobin Concent 33.4, Red Cell Distribution Width 13.1, Platelet Count 283, Mean Platelet Volume 8.7, Neutrophils (%) (Auto) 83.8H, Lymphocytes ( %) (Auto) 7.2L, Monocytes (%) (Auto) 7.4, Eosinophils (%) (Auto) 0.9, Basophils (%) (Auto) 0.7, Lactic Acid Level 3.50H, Troponin I 1.527H, Prostate Specific Antigen 13.30H, Thyroid Stimulating Hormone (TSH) 0.693 Height (Feet): 6 Weight (Pounds): 158 Sary Oakes MD Jul 04, 2017 20:31
[2017-07-04] MEDS: Vitamin A&D Oint 2oz Tube TOPIC SCH (20:36)
[2017-07-05] VITALS (77 sets, daily range): BP systolic 85–146; BP diastolic 48–96
[2017-07-05] MEDS: NovoLOG Insulin Flexpen SUBQ SCH ×4 (00:02→18:12)
[2017-07-05] MEDS: LORazepam Inj 2mg/ml 1ml IV PRN ×2 (01:48→14:36)
[2017-07-05] MEDS: Albuterol/Ipratropium 3ml neb HHN SCH ×5 (02:06→20:21)
[2017-07-05 04:19] LABS: BASOPHILS % (AUTO) 0.6 % (0.0-2.0); EOSINOPHILS % (AUTO) 1.2 % (0.0-3.0); LYMPHOCYTES % (AUTO) 8.9 % (20.0-45.0); MEAN CORPUSCULAR HEMOGLOBIN 31.1 PG (27.0-31.0); MEAN CORPUSCULAR VOLUME 91 FL (80-99); MEAN PLATELET VOLUME 8.7 FL (6.5-10.1); MONOCYTES % (AUTO) 6.5 % (1.0-10.0); NEUTROPHILS % (AUTO) 82.8 % (45.0-75.0); PLATELET COUNT 251 K/UL (150-450); RED BLOOD COUNT 3.42 M/UL (4.70-6.10); RED CELL DISTRIBUTION WIDTH 12.7 % (11.6-14.8); WHITE BLOOD COUNT 13.1 K/UL (4.8-10.8)
[2017-07-05 04:34] LABS: ALANINE AMINOTRANSFERASE 12 U/L (12-78); ALBUMIN/GLOBULIN RATIO 0.4 (1.0-2.7); ANION GAP 6 mmol/L (5-15); ASPARTATE AMINO TRANSFERASE 21 U/L (15-37); CALCIUM 8.7 MG/DL (8.5-10.1); CARBON DIOXIDE 26 MMOL/L (21-32); CHLORIDE 106 MMOL/L (98-107); CREATININE 0.7 MG/DL (0.55-1.30); POTASSIUM 3.2 MMOL/L (3.5-5.1); SODIUM 138 MMOL/L (136-145); TOTAL PROTEIN 5.9 G/DL (6.4-8.2)
[2017-07-05] MEDS: Zoysn 3.37gm in D5W 55ml IVPB SCH ×3 (05:41→22:21)
--- NOTE | 2017-07-05 08:15 | Consultation ---
DATE OF CONSULTATION: 07/03/2017 HEMATOLOGY/ONCOLOGY CONSULTATION CONSULTING PHYSICIAN: Jose Luis Rendon M.D. REQUESTING PHYSICIAN: Sary Oakes M.D. REASON FOR CONSULTATION: Evaluation of leukocytosis, anemia, and leukopenia. IDENTIFICATION DATA: Dear Dr. Oakes: The patient is a pleasant 76-year-old male who has significant past medical history significant for advanced dementia, prostate cancer, G-tube insertion, anemia, UTI, seizure disorder, , CVA, depression, hyperlipidemia, sinus disease, COPD, and osteoporosis. Hematology service was consulted given the patient had history of prostate cancer as well as leukopenia. The patient was hypertensive, intubated. Pulmonary team has evaluated the patient as well. PAST MEDICAL HISTORY: As noted above. ALLERGIES: None noted. FAMILY HISTORY: Noncontributory. Difficult to obtain. The patient is intubated. REVIEW OF SYSTEMS: Difficult to obtain. PHYSICAL EXAMINATION: VITAL SIGNS: Reviewed. On vasopressor. GENERAL: In no acute distress, however, he is on vasopressors. PULMONARY: Decreased breath sounds, on a vent ABDOMEN: nontender and nondistended. Presence of G-tube. EXTREMITIES: No cyanosis, swelling, or edema. NEUROLOGICAL: Nonverbal. LABORATORY DATA: WBC is 26,000, hemoglobin 11.6, hematocrit 35, and platelets . BUN 39 and creatinine . IMAGING: Chest x-ray shows increasing pulmonary edema, correlation with infiltrate suggested. Stable endotracheal tube noted. Lifetime summary reveals most recently PSA, which was 5.6. B12 reviewed. CEA reviewed, which was also elevated before. ASSESSMENT AND RECOMMENDATIONS: 1. prostate cancer in remission at this time. Current PSA of 5.6. 2. Elevated CEA of 3.2. Also obtain recheck laboratories . 3. Leukocytosis, secondary to underlying infection, infiltrates noted. Consider evaluation as needed with ID Service. 4. status post intubation. 5. Anemia, rule out gastrointestinal bleed. is on board and monitoring the patient closely. I appreciate the consultation. Jose Luis Rendon M.D. DR: Stuart JOB#: [id number] CC:
--- NOTE | 2017-07-05 08:15 | History and Physical Report ---
DATE OF ADMISSION: 07/02/2017 HISTORY OF PRESENT ILLNESS: The patient is admitted to ICU for respiratory failure, intubated, suprapubic catheter is also clogged, not clearing out any urine and the patient is intubated and sedated. PAST MEDICAL HISTORY: Significant for NIDDM, advanced dementia, history of hypotension, history of GERD, history of dysphagia, history of COPD, history of depression, history of hypernatremia, history of hematuria, history of BPH, prostate cancer, history of seizure disorder, and history of ATN. PAST SURGICAL HISTORY: History of G-tube and history of suprapubic catheter. ALLERGIES: None. MEDICATIONS: Albuterol, midodrine, omeprazole, and MiraLAX. FAMILY HISTORY: Unable to obtain. SOCIAL HISTORY: Unable to obtain. REVIEW OF SYSTEMS: Unable to obtain. PHYSICAL EXAMINATION: VITAL SIGNS: Temperature is 97.2, pulse is 122, and blood pressure 94/63. HEENT: PERRLA. The patient is intubated. NECK: Supple. CHEST: Bibasilar rales. CARDIOVASCULAR: Tachycardic. GASTROINTESTINAL: Soft. Positive bowel sounds. EXTREMITIES: No edema. Responds to deep noxious stimuli. LABORATORY AND DIAGNOSTIC DATA: WBC of 22,000, hemoglobin of 13, and platelets 430. Sodium 134, potassium 4.8, BUN of 41, creatinine 1.1, and glucose of 363. ASSESSMENT AND PLAN: . The patient got a feeding tube . The patient has aspirated. The patient's chest x-ray shows pneumonia. The patient's suprapubic catheter is clogged and does not have any urine output. . Initially, given . The patient has pneumonia, respiratory failure, and renal failure. I have asked DrIftikhar , Dr. Herring, Dr. Sanchez, Dr. Vázquez, Dr. Brooks, Dr. Joya, and Dr. Wall to see the patient for the diabetes and the above-mentioned diagnoses and treatment . Sary Oakes M.D. DR: TERRY JOB#: [id number] CC:
[2017-07-05] MEDS: Aspirin Baby 81mg GT SCH (09:08)
[2017-07-05] MEDS: Midodrine 10mg tab GT SCH ×3 (09:08→18:10)
[2017-07-05] MEDS: Pantoprazole Inj IV SCH (09:09)
[2017-07-05] MEDS: Levemir Flexpen SUBQ SCH ×2 (09:10→18:13)
[2017-07-05] MEDS: Enoxaparin Sodium 300mg/3ml vial SUBQ SCH ×2 (09:10→20:59)
[2017-07-05] MEDS: Vitamin A&D Oint 2oz Tube TOPIC SCH ×2 (09:11→21:00)
[2017-07-05] MEDS: Acetaminophen 650mg/20.3ml GT PRN (09:12)
--- NOTE | 2017-07-05 11:37 | Infectious Diseases Prog Note ---
Assessment/Plan Assessment/Plan A; Septic Shock Complicated UTI Pneumonia CoANS in blood likely contamination Acute respiratory failure P; Continue Vancomycin & Zosyn Will f/u cultures Change suprapubic catheter Subjective ROS Limited/Unobtainable: Yes Neurologic: Reports: confusion, other - on restraint Allergies: Coded Allergies: No Known Allergies (Verified , 09/26/12) Objective Vital Signs Last 24 Hour Vital Signs Date Time Temp Pulse Resp B/P (MAP) Pulse Ox O2 Delivery O2 Flow Rate FiO2 07/05/17 10:12 95/49 07/05/17 10:00 99.0 07/05/17 08:50 114 26 45 07/05/17 08:45 115 26 103/55 100 Mechanical Ventilator 45 07/05/17 08:30 115 24 109/57 99 Mechanical Ventilator 45 07/05/17 08:15 111 24 120/65 99 Mechanical Ventilator 45 07/05/17 08:00 100.0 108 20 113/64 99 Mechanical Ventilator 45 07/05/17 08:00 106 07/05/17 08:00 45 07/05/17 07:45 109 23 91/53 100 Mechanical Ventilator 45 07/05/17 07:30 111 23 126/70 100 Mechanical Ventilator 45 07/05/17 07:20 110 21 100 Mechanical Ventilator 45 07/05/17 07:15 112 25 104/65 100 Mechanical Ventilator 45 07/05/17 07:10 45 07/05/17 07:10 110 22 100 Mechanical Ventilator 45 07/05/17 07:01 103 12 45 07/05/17 07:00 112 25 99/60 100 Mechanical Ventilator 45 07/05/17 07:00 88/54 07/05/17 06:45 104 19 94/51 100 Mechanical Ventilator 45 07/05/17 06:30 104 19 94/51 100 Mechanical Ventilator 45 07/05/17 06:15 107 23 94/51 95 Mechanical Ventilator 45 07/05/17 06:00 108 23 98/59 95 Mechanical Ventilator 45 07/05/17 06:00 98/59 07/05/17 05:45 106 22 100/59 100 Mechanical Ventilator 45 07/05/17 05:30 109 23 104/59 98 Mechanical Ventilator 45 07/05/17 05:20 101 21 45 07/05/17 05:15 100 20 98/53 100 Mechanical Ventilator 45 07/05/17 05:00 94/53 07/05/17 05:00 100 20 94/53 100 Mechanical Ventilator 45 07/05/17 04:45 101 20 91/57 100 Mechanical Ventilator 45 07/05/17 04:30 102 20 95/59 100 Mechanical Ventilator 45 07/05/17 04:15 105 21 93/58 100 Mechanical Ventilator 45 07/05/17 04:00 98.3 107 23 102/62 100 Mechanical Ventilator 45 07/05/17 04:00 45 07/05/17 04:00 102/62 07/05/17 04:00 74 07/05/17 03:45 107 22 100/63 99 Mechanical Ventilator 45 07/05/17 03:30 111 25 123/74 98 Mechanical Ventilator 45 07/05/17 03:15 111 25 110/58 99 Mechanical Ventilator 45 07/05/17 03:00 108 22 110/58 100 Mechanical Ventilator 45 07/05/17 03:00 110/58 07/05/17 02:45 106 23 95/54 100 Mechanical Ventilator 45 07/05/17 02:36 127 20 45 07/05/17 02:30 108 22 96/53 100 Mechanical Ventilator 45 07/05/17 02:15 113 20 88/48 100 Mechanical Ventilator 45 07/05/17 02:11 Mechanical Ventilator 07/05/17 02:07 138 Mechanical Ventilator 07/05/17 02:00 114/72 07/05/17 02:00 118 22 114/72 98 Mechanical Ventilator 45 07/05/17 01:45 125 23 146/96 97 Mechanical Ventilator 50 07/05/17 01:30 144 24 124/88 95 Mechanical Ventilator 50 07/05/17 01:22 140 30 50 07/05/17 01:15 97 19 112/63 100 Mechanical Ventilator 50 07/05/17 01:00 99/59 07/05/17 01:00 94 20 99/59 100 Mechanical Ventilator 50 07/05/17 00:45 95 19 100/57 100 Mechanical Ventilator 50 07/05/17 00:30 96 19 100/57 100 Mechanical Ventilator 50 07/05/17 00:15 98 19 99/58 100 Mechanical Ventilator 50 07/05/17 00:00 98 07/05/17 00:00 101/61 07/05/17 00:00 50 07/05/17 00:00 98.2 98 20 101/61 100 Mechanical Ventilator 50 07/04/17 23:47 89 21 100 Mechanical Ventilator 50 07/04/17 23:45 97 20 101/57 100 Mechanical Ventilator 50 07/04/17 23:37 91 17 100 Mechanical Ventilator 50 07/04/17 23:30 93 20 88/47 100 Mechanical Ventilator 50 07/04/17 23:20 91 17 50 07/04/17 23:15 97 20 88/47 100 Mechanical Ventilator 50 07/04/17 23:00 88/47 07/04/17 23:00 97 20 88/47 100 Mechanical Ventilator 50 07/04/17 22:45 99 21 94/52 100 Mechanical Ventilator 50 07/04/17 22:30 105 24 98/60 100 Mechanical Ventilator 50 07/04/17 22:15 97 20 108/69 100 Mechanical Ventilator 50 07/04/17 22:03 104/58 07/04/17 22:00 97 19 94/53 100 Mechanical Ventilator 50 07/04/17 22:00 94/53 07/04/17 21:45 99.1 100 20 97/55 100 Mechanical Ventilator 50 07/04/17 21:30 101 21 104/58 100 Mechanical Ventilator 50 07/04/17 21:15 101 21 88/55 100 Mechanical Ventilator 50 07/04/17 21:15 103 22 50 07/04/17 21:00 99.1 104 21 89/48 100 Mechanical Ventilator 50 07/04/17 21:00 89/48 07/04/17 20:45 115 27 86/45 100 Mechanical Ventilator 50 07/04/17 20:30 120 26 107/90 100 Mechanical Ventilator 50 07/04/17 20:15 111 21 99/55 100 Mechanical Ventilator 50 07/04/17 20:00 99.9 106 21 108/66 100 Mechanical Ventilator 50 07/04/17 20:00 108/66 07/04/17 20:00 50 07/04/17 20:00 105 07/04/17 19:45 108 22 97/51 100 Mechanical Ventilator 50 07/04/17 19:30 110 23 101/57 100 Mechanical Ventilator 50 07/04/17 19:25 107 21 100 Mechanical Ventilator 50 07/04/17 19:15 108 21 97/55 100 Mechanical Ventilator 50 07/04/17 19:11 109 21 100 Mechanical Ventilator 50 07/04/17 19:08 109 21 50 07/04/17 19:00 108 21 96/53 100 Mechanical Ventilator 60 07/04/17 19:00 96/53 07/04/17 18:30 110 21 98/53 100 Mechanical Ventilator 60 07/04/17 18:00 98/53 07/04/17 18:00 117 24 107/61 100 Mechanical Ventilator 60 07/04/17 17:30 120 24 110/63 100 Mechanical Ventilator 60 07/04/17 17:19 118 24 70 07/04/17 17:00 104/61 07/04/17 17:00 118 24 104/61 100 Mechanical Ventilator 60 07/04/17 16:30 122 24 113/72 100 Mechanical Ventilator 60 07/04/17 16:00 98.7 115 24 106/86 100 Mechanical Ventilator 60 07/04/17 16:00 106/86 07/04/17 16:00 109 07/04/17 15:30 112 24 104/55 100 Mechanical Ventilator 60 07/04/17 15:10 89 20 100 Mechanical Ventilator 70 07/04/17 15:00 107 24 104/57 100 Mechanical Ventilator 60 07/04/17 15:00 107/54 07/04/17 14:47 111 27 100 Mechanical Ventilator 70 07/04/17 14:46 109 23 70 07/04/17 14:30 111 24 104/62 100 Mechanical Ventilator 60 07/04/17 14:30 60 07/04/17 14:00 106 24 105/59 100 Mechanical Ventilator 60 07/04/17 14:00 105/59 07/04/17 13:30 116 24 136/79 100 Mechanical Ventilator 70 07/04/17 13:29 107/58 07/04/17 13:09 109 21 70 07/04/17 13:00 107/58 07/04/17 13:00 109 24 107/58 100 Mechanical Ventilator 70 07/04/17 12:30 104 24 105/61 100 Mechanical Ventilator 70 07/04/17 12:00 115 07/04/17 12:00 70 07/04/17 12:00 111/58 07/04/17 12:00 99.0 103 24 108/61 100 Mechanical Ventilator 70 Height (Feet): 6 Weight (Pounds): 162 HEENT: other - orally intubated Respiratory/Chest: lungs clear, other - on ventilator Cardiovascular: normal rate, other - Rij central line, on Levophed 4 yovany/kg/min Abdomen: soft, non tender, other - GT feeding Genitourinary: other - suprapubic catheter Extremities: no edema Neurologic/Psychiatric: unresponsiveness Microbiology Date/Time Source Procedure Growth Status 07/02/17 16:50 Blood Blood Culture - Preliminary Staphylococcus Sp Coag Neg Resulted 07/02/17 16:45 Blood Blood Culture - Preliminary Staphylococcus Sp Coag Neg Resulted 07/02/17 22:30 Sputum Gram Stain - Final Resulted 07/02/17 22:30 Sputum Culture - Preliminary Gram Negative Bacillus 1 Usual Respiratory Cami Resulted 07/02/17 19:15 Urine,Clean Catch Urine Culture - Preliminary Resulted 07/02/17 19:15 Urine,Suprapubic Urine Culture - Preliminary Staphylococcus Species Gram Negative Bacillus 1 Resulted 07/02/17 21:00 Sacral Wound Gram Stain - Final Resulted 07/02/17 21:00 Wound Culture - Preliminary Gram Negative Lex Gram Negative Bacillus 2 Strep Species, Gamma-Hemolytic Resulted Laboratory Tests Test 07/05/17 03:00 07/05/17 11:15 White Blood Count 13.1 K/UL (4.8-10.8) H Red Blood Count 3.42 M/UL (4.70-6.10) L Hemoglobin 10.6 G/DL (14.2-18.0) L Hematocrit 31.3 % (42.0-52.0) L Mean Corpuscular Volume 91 FL (80-99) Mean Corpuscular Hemoglobin 31.1 PG (27.0-31.0) H Mean Corpuscular Hemoglobin Concent 34.0 G/DL (32.0-36.0) Red Cell Distribution Width 12.7 % (11.6-14.8) Platelet Count 251 K/UL (150-450) Mean Platelet Volume 8.7 FL (6.5-10.1) Neutrophils (%) (Auto) 82.8 % (45.0-75.0) H Lymphocytes (%) (Auto) 8.9 % (20.0-45.0) L Monocytes (%) (Auto) 6.5 % (1.0-10.0) Eosinophils (%) (Auto) 1.2 % (0.0-3.0) Basophils (%) (Auto) 0.6 % (0.0-2.0) Sodium Level 138 MMOL/L (136-145) Potassium Level 3.2 MMOL/L (3.5-5.1) L Chloride Level 106 MMOL/L (98-107) Carbon Dioxide Level 26 MMOL/L (21-32) Anion Gap 6 mmol/L (5-15) Blood Urea Nitrogen 16 mg/dL (7-18) Creatinine 0.7 MG/DL (0.55-1.30) Estimat Glomerular Filtration Rate mL/min (>60) Glucose Level 178 MG/DL (74-106) H Lactic Acid Level 1.90 mmol/L (0.66-2.22) Calcium Level 8.7 MG/DL (8.5-10.1) Total Bilirubin 0.4 MG/DL (0.2-1.0) Aspartate Amino Transf (AST/SGOT) 21 U/L (15-37) Alanine Aminotransferase (ALT/SGPT) 12 U/L (12-78) Alkaline Phosphatase 96 U/L (46-116) Total Protein 5.9 G/DL (6.4-8.2) L Albumin 1.8 G/DL (3.4-5.0) L Globulin 4.1 g/dL Albumin/Globulin Ratio 0.4 (1.0-2.7) L Vancomycin Level Trough Pending Current Medications Medications (Trade) Dose Ordered Sig/Matt Route PRN Reason Start Time Stop Time Status Last Admin Dose Admin Acetaminophen (Tylenol) 650 mg Q4H PRN GT Mild Pain (1-3) 07/02/17 19:00 08/01/17 18:59 07/05/17 09:12 Acetaminophen/ Hydrocodone Bitart ([place] 5/325) 1 tab QID PRN ORAL for moderate pain (4-6) 07/03/17 18:45 07/10/17 18:44 Albuterol/ Ipratropium (Albuterol/ Ipratropium) 3 ml Q4H HHN 07/02/17 19:00 07/07/17 18:59 07/05/17 07:01 Aspirin (ASA) 81 mg DAILY GT 07/03/17 09:00 08/02/17 08:59 07/05/17 09:08 Chlorhexidine Gluconate (Mari-Hex 2%) 1 applic DAILY@1999 TOPIC 07/03/17 20:00 08/02/17 19:59 07/04/17 20:17 Dextrose (Dextrose 50%) STAT PRN IV Hypoglycemia 07/02/17 19:00 08/01/17 18:59 Enoxaparin Sodium (Lovenox) 70 mg EVERY 12 HOURS SUBQ 07/03/17 09:00 08/02/17 08:59 07/05/17 09:10 Insulin Aspart (NovoLOG) Q6HR SUBQ 07/04/17 00:00 08/01/17 20:59 07/05/17 00:02 Insulin Detemir (Levemir) 8 units BID SUBQ 07/03/17 22:00 08/02/17 21:59 07/05/17 09:10 Lorazepam (Ativan 2mg/ml 1ml) 0.5 mg Q3HR PRN IV For Anxiety 07/03/17 18:30 07/10/17 18:29 07/05/17 01:48 Midodrine (Pro-Amatine) 10 mg THREE TIMES A DAY GT 07/03/17 09:00 08/02/17 08:59 07/05/17 09:08 Norepinephrine Bitartrate 4 mg/ Dextrose 250 ml @ 0 mls/hr Q24H IV 07/02/17 21:31 08/01/17 21:30 07/05/17 10:12 Ondansetron HCl (Zofran) 4 mg Q6H PRN GT Nausea & Vomiting 07/02/17 19:00 08/01/17 18:59 Pantoprazole (Protonix) 40 mg DAILY IV 07/03/17 09:00 08/02/17 08:59 07/05/17 09:09 Piperacillin Sod/ Tazobactam Sod 3.375 gm/Dextrose 55 ml @ 13.75 mls/ hr EVERY 8 HOURS IVPB 07/02/17 23:00 07/07/17 22:59 07/05/17 05:41 Sodium Chloride 1,000 ml @ 100 mls/hr Q10H IVLG 07/02/17 20:45 08/01/17 20:44 07/05/17 09:09 Vancomycin HCl (Vanco rx to dose) 1 ea DAILY PRN MISC RX TO DOSE PROTOCOL 07/02/17 19:00 08/01/17 18:59 Vancomycin HCl 1 gm/Dextrose 275 ml @ 183.708 mls/hr Q12HR@0000,1200 IVPB 07/03/17 12:00 07/08/17 11:59 07/05/17 00:00 Vitamin A/Vitamin D (A & D Oint) 1 applic EVERY 12 HOURS TOPIC 07/04/17 21:00 08/03/17 20:59 07/05/17 09:11 BREANNE CERVANTES Jul 05, 2017 11:37
[2017-07-05] MEDS: Vancomycin 1gm in D5W 275ml IVPB SCH ×3 (12:18)
--- NOTE | 2017-07-05 15:35 | Consultation ---
Consult Note Consult Note asked to eval for electrolyte imbalance and oliguria, fluid management- intubated in ICU examined- data reviewed discussed with RN 1. Respiratory failure. 2. Sepsis with shock. 3. Pneumonia. 4. Anuria. 5. Prostate cancer with suprapubic catheter. 6. Severe Alzheimer dementia. 7. Severe protein-calorie malnutrition. 8. Anemia. 9. Possible acute myocardial infarction. 10. Azotemia. 11. Hyperglycemia. Assessment/Plan HypoKalemia- Respiratory Failure Septic shock / Pneumonia / UTI Oliguria due to low BP Prostate cancer with suprapubic catheter. Severe Alzheimer dementia. Severe protein-calorie malnutrition. Anemia. Hyperglycemia. Plan: FLuid challenge- Cortisol level Antibiotics pulmonary support K supplements Per order FAITH SEARS Jul 05, 2017 15:35
[2017-07-05] MEDS ORDERED: Potassium Chloride 50 MEQ in Sodium Chloride 500ML 550 ML IVPB ONE (16:30)
--- NOTE | 2017-07-05 19:22 | Pulmonology Progress Note ---
Assessment/Plan Assessment/Plan 1. Respiratory failure. 2. Sepsis with shock. 3. Pneumonia. 4. Anuria. 5. Prostate cancer with suprapubic catheter. 6. Severe Alzheimer dementia. 7. Severe protein-calorie malnutrition. 8. Anemia. 9. Possible acute myocardial infarction. 10. Azotemia. 11. Hyperglycemia. low u/o, possible cath malfunction WBC lower, BC+ [employer] vent support cont rx prognosis guarded Subjective ROS Limited/Unobtainable: Yes Allergies: Coded Allergies: No Known Allergies (Verified , 09/26/12) Objective Last 24 Hour Vital Signs Date Time Temp Pulse Resp B/P (MAP) Pulse Ox O2 Delivery O2 Flow Rate FiO2 07/05/17 19:00 93 22 85/56 100 Mechanical Ventilator 45 07/05/17 18:30 102 23 107/68 100 Mechanical Ventilator 45 07/05/17 18:00 105 22 111/69 94 Mechanical Ventilator 45 07/05/17 17:30 104 24 91/57 94 Mechanical Ventilator 45 07/05/17 17:04 109 18 45 07/05/17 17:00 102 22 100/62 97 Mechanical Ventilator 45 07/05/17 16:30 106 22 100/65 94 Mechanical Ventilator 45 07/05/17 16:00 98.6 105 12 94/55 97 Mechanical Ventilator 45 07/05/17 16:00 45 07/05/17 16:00 133 07/05/17 15:30 103 12 88/59 100 Mechanical Ventilator 45 07/05/17 15:00 104 24 100 Mechanical Ventilator 45 07/05/17 15:00 86 20 85/52 100 Mechanical Ventilator 45 07/05/17 14:46 107 12 100 Mechanical Ventilator 45 07/05/17 14:46 45 07/05/17 14:40 97 19 45 07/05/17 14:30 102 20 100/57 100 Mechanical Ventilator 45 07/05/17 14:00 105 25 108/65 100 Mechanical Ventilator 45 07/05/17 13:30 95 18 97/68 100 Mechanical Ventilator 45 07/05/17 13:00 91 20 92/52 100 Mechanical Ventilator 45 07/05/17 12:57 96 19 45 07/05/17 12:30 99.0 105 25 101/53 99 Mechanical Ventilator 45 07/05/17 12:08 93 12 100 Mechanical Ventilator 45 07/05/17 12:02 89 12 100 Mechanical Ventilator 45 07/05/17 12:02 45 07/05/17 12:00 45 07/05/17 12:00 92 07/05/17 12:00 99.0 95 21 96/67 100 Mechanical Ventilator 45 07/05/17 11:30 91 19 91/56 100 Mechanical Ventilator 45 07/05/17 11:00 94 18 94/54 100 Mechanical Ventilator 45 07/05/17 10:39 114 26 45 07/05/17 10:30 105 20 90/51 99 Mechanical Ventilator 45 07/05/17 10:12 95/49 07/05/17 10:00 105 22 94/51 100 Mechanical Ventilator 45 07/05/17 10:00 99.0 07/05/17 09:45 107 23 95/49 100 Mechanical Ventilator 45 07/05/17 09:30 111 24 94/54 100 Mechanical Ventilator 45 07/05/17 09:15 111 26 100/56 100 Mechanical Ventilator 45 07/05/17 09:00 115 25 101/57 100 Mechanical Ventilator 45 07/05/17 08:50 114 26 45 07/05/17 08:45 115 26 103/55 100 Mechanical Ventilator 45 07/05/17 08:30 115 24 109/57 99 Mechanical Ventilator 45 07/05/17 08:15 111 24 120/65 99 Mechanical Ventilator 45 07/05/17 08:00 100.0 108 20 113/64 99 Mechanical Ventilator 45 07/05/17 08:00 106 07/05/17 08:00 45 07/05/17 07:45 109 23 91/53 100 Mechanical Ventilator 45 07/05/17 07:30 111 23 126/70 100 Mechanical Ventilator 45 07/05/17 07:20 110 21 100 Mechanical Ventilator 45 07/05/17 07:15 112 25 104/65 100 Mechanical Ventilator 45 07/05/17 07:10 45 07/05/17 07:10 110 22 100 Mechanical Ventilator 45 07/05/17 07:01 103 12 45 07/05/17 07:00 112 25 99/60 100 Mechanical Ventilator 45 07/05/17 07:00 88/54 07/05/17 06:45 104 19 94/51 100 Mechanical Ventilator 45 07/05/17 06:30 104 19 94/51 100 Mechanical Ventilator 45 07/05/17 06:15 107 23 94/51 95 Mechanical Ventilator 45 07/05/17 06:00 108 23 98/59 95 Mechanical Ventilator 45 07/05/17 06:00 98/59 07/05/17 05:45 106 22 100/59 100 Mechanical Ventilator 45 07/05/17 05:30 109 23 104/59 98 Mechanical Ventilator 45 07/05/17 05:20 101 21 45 07/05/17 05:15 100 20 98/53 100 Mechanical Ventilator 45 07/05/17 05:00 94/53 07/05/17 05:00 100 20 94/53 100 Mechanical Ventilator 45 07/05/17 04:45 101 20 91/57 100 Mechanical Ventilator 45 07/05/17 04:30 102 20 95/59 100 Mechanical Ventilator 45 07/05/17 04:15 105 21 93/58 100 Mechanical Ventilator 45 07/05/17 04:00 98.3 107 23 102/62 100 Mechanical Ventilator 45 07/05/17 04:00 45 07/05/17 04:00 102/62 07/05/17 04:00 74 07/05/17 03:45 107 22 100/63 99 Mechanical Ventilator 45 07/05/17 03:30 111 25 123/74 98 Mechanical Ventilator 45 07/05/17 03:15 111 25 110/58 99 Mechanical Ventilator 45 07/05/17 03:00 108 22 110/58 100 Mechanical Ventilator 45 07/05/17 03:00 110/58 07/05/17 02:45 106 23 95/54 100 Mechanical Ventilator 45 07/05/17 02:36 127 20 45 07/05/17 02:30 108 22 96/53 100 Mechanical Ventilator 45 07/05/17 02:15 113 20 88/48 100 Mechanical Ventilator 45 07/05/17 02:11 Mechanical Ventilator 07/05/17 02:07 138 Mechanical Ventilator 07/05/17 02:00 114/72 07/05/17 02:00 118 22 114/72 98 Mechanical Ventilator 45 07/05/17 01:45 125 23 146/96 97 Mechanical Ventilator 50 07/05/17 01:30 144 24 124/88 95 Mechanical Ventilator 50 07/05/17 01:22 140 30 50 07/05/17 01:15 97 19 112/63 100 Mechanical Ventilator 50 07/05/17 01:00 99/59 07/05/17 01:00 94 20 99/59 100 Mechanical Ventilator 50 07/05/17 00:45 95 19 100/57 100 Mechanical Ventilator 50 07/05/17 00:30 96 19 100/57 100 Mechanical Ventilator 50 07/05/17 00:15 98 19 99/58 100 Mechanical Ventilator 50 07/05/17 00:00 98 07/05/17 00:00 101/61 07/05/17 00:00 50 07/05/17 00:00 98.2 98 20 101/61 100 Mechanical Ventilator 50 07/04/17 23:47 89 21 100 Mechanical Ventilator 50 07/04/17 23:45 97 20 101/57 100 Mechanical Ventilator 50 07/04/17 23:37 91 17 100 Mechanical Ventilator 50 07/04/17 23:30 93 20 88/47 100 Mechanical Ventilator 50 07/04/17 23:20 91 17 50 07/04/17 23:15 97 20 88/47 100 Mechanical Ventilator 50 07/04/17 23:00 88/47 07/04/17 23:00 97 20 88/47 100 Mechanical Ventilator 50 07/04/17 22:45 99 21 94/52 100 Mechanical Ventilator 50 07/04/17 22:30 105 24 98/60 100 Mechanical Ventilator 50 07/04/17 22:15 97 20 108/69 100 Mechanical Ventilator 50 07/04/17 22:03 104/58 07/04/17 22:00 97 19 94/53 100 Mechanical Ventilator 50 07/04/17 22:00 94/53 07/04/17 21:45 99.1 100 20 97/55 100 Mechanical Ventilator 50 07/04/17 21:30 101 21 104/58 100 Mechanical Ventilator 50 07/04/17 21:15 101 21 88/55 100 Mechanical Ventilator 50 07/04/17 21:15 103 22 50 07/04/17 21:00 99.1 104 21 89/48 100 Mechanical Ventilator 50 07/04/17 21:00 89/48 07/04/17 20:45 115 27 86/45 100 Mechanical Ventilator 50 07/04/17 20:30 120 26 107/90 100 Mechanical Ventilator 50 07/04/17 20:15 111 21 99/55 100 Mechanical Ventilator 50 07/04/17 20:00 99.9 106 21 108/66 100 Mechanical Ventilator 50 07/04/17 20:00 108/66 07/04/17 20:00 50 07/04/17 20:00 105 07/04/17 19:45 108 22 97/51 100 Mechanical Ventilator 50 07/04/17 19:30 110 23 101/57 100 Mechanical Ventilator 50 07/04/17 19:25 107 21 100 Mechanical Ventilator 50 Intake and Output 07/05/17 07/06/17 19:00 07:00 Intake Total 2439.45 ml Output Total 835 ml Balance 1604.45 ml IV Total 1659.45 ml Tube Feeding 660 ml Other 120 ml Output Urine Total 835 ml Objective G tube, suprapubic cath General Appearance: no acute distress, cachetic HEENT: atraumatic Respiratory/Chest: lungs clear Cardiovascular: normal rate Abdomen: soft, non tender Microbiology Date/Time Source Procedure Growth Status 07/02/17 22:30 Sputum Gram Stain - Final Resulted 07/02/17 22:30 Sputum Culture - Preliminary Gram Negative Bacillus 1 Usual Respiratory Cami Resulted 07/02/17 21:00 Sacral Wound Gram Stain - Final Resulted 07/02/17 21:00 Wound Culture - Preliminary Gram Negative Lex Gram Negative Bacillus 2 Strep Species, Gamma-Hemolytic Resulted Laboratory Tests 07/05/17 03:00: White Blood Count 13.1H, Red Blood Count 3.42L, Hemoglobin 10.6L, Hematocrit 31.3L, Mean Corpuscular Volume 91, Mean Corpuscular Hemoglobin 31.1H, Mean Corpuscular Hemoglobin Concent 34.0, Red Cell Distribution Width 12.7, Platelet Count 251, Mean Platelet Volume 8.7, Neutrophils (%) (Auto) 82.8H, Lymphocytes ( %) (Auto) 8.9L, Monocytes (%) (Auto) 6.5, Eosinophils (%) (Auto) 1.2, Basophils (%) (Auto) 0.6, Sodium Level 138, Potassium Level 3.2L, Chloride Level 106, Carbon Dioxide Level 26, Anion Gap 6, Blood Urea Nitrogen 16, Creatinine 0.7, Estimat Glomerular Filtration Rate , Glucose Level 178H, Lactic Acid Level 1.90 , Calcium Level 8.7, Total Bilirubin 0.4, Aspartate Amino Transf (AST/SGOT) 21, Alanine Aminotransferase (ALT/SGPT) 12, Alkaline Phosphatase 96, Total Protein 5.9L, Albumin 1.8L, Globulin 4.1, Albumin/Globulin Ratio 0.4L 07/05/17 11:15: Vancomycin Level Trough 18.0H Current Medications Medications (Trade) Dose Ordered Sig/Matt Route PRN Reason Start Time Stop Time Status Last Admin Dose Admin Acetaminophen (Tylenol) 650 mg Q4H PRN GT Mild Pain (1-3) 07/02/17 19:00 08/01/17 18:59 07/05/17 09:12 Acetaminophen/ Hydrocodone Bitart ([place] 5/325) 1 tab QID PRN ORAL for moderate pain (4-6) 07/03/17 18:45 07/10/17 18:44 Albuterol/ Ipratropium (Albuterol/ Ipratropium) 3 ml Q4H HHN 07/02/17 19:00 07/07/17 18:59 07/05/17 14:46 Aspirin (ASA) 81 mg DAILY GT 07/03/17 09:00 08/02/17 08:59 07/05/17 09:08 Chlorhexidine Gluconate (Mari-Hex 2%) 1 applic DAILY@2000 TOPIC 07/03/17 20:00 08/02/17 19:59 07/04/17 20:17 Dextrose (Dextrose 50%) STAT PRN IV Hypoglycemia 07/02/17 19:00 08/01/17 18:59 Enoxaparin Sodium (Lovenox) 70 mg EVERY 12 HOURS SUBQ 07/03/17 09:00 08/02/17 08:59 07/05/17 09:10 Famotidine (Pepcid I.v.) 20 mg Q12HR IVP 07/05/17 23:00 08/04/17 22:59 Insulin Aspart (NovoLOG) Q6HR SUBQ 07/04/17 00:00 08/01/17 20:59 07/05/17 18:12 Insulin Detemir (Levemir) 8 units BID SUBQ 07/03/17 22:00 08/02/17 21:59 07/05/17 18:13 Lorazepam (Ativan 2mg/ml 1ml) 0.5 mg Q3HR PRN IV For Anxiety 07/03/17 18:30 07/10/17 18:29 07/05/17 14:36 Midodrine (Pro-Amatine) 10 mg THREE TIMES A DAY GT 07/03/17 09:00 08/02/17 08:59 07/05/17 18:10 Norepinephrine Bitartrate 4 mg/ Dextrose 250 ml @ 0 mls/hr Q24H IV 07/02/17 21:31 08/01/17 21:30 07/05/17 10:12 Ondansetron HCl (Zofran) 4 mg Q6H PRN GT Nausea & Vomiting 07/02/17 19:00 08/01/17 18:59 Pantoprazole (Protonix) 40 mg DAILY IV 07/03/17 09:00 08/02/17 08:59 07/05/17 09:09 Piperacillin Sod/ Tazobactam Sod 3.375 gm/Dextrose 55 ml @ 13.75 mls/ hr EVERY 8 HOURS IVPB 07/02/17 23:00 07/07/17 22:59 07/05/17 14:36 Potassium Chloride 50 meq/ Sodium Chloride 575 ml @ 115 mls/hr ONCE ONCE IVPB 07/05/17 16:30 07/05/17 21:29 07/05/17 16:26 Sodium Chloride 1,000 ml @ 100 mls/hr Q10H IVLG 07/02/17 20:45 08/01/17 20:44 07/05/17 18:10 Vancomycin HCl (Vanco rx to dose) 1 ea DAILY PRN MISC RX TO DOSE PROTOCOL 07/02/17 19:00 08/01/17 18:59 Vancomycin HCl 1 gm/Dextrose 275 ml @ 183.708 mls/hr Q12HR@0000,1200 IVPB 07/03/17 12:00 07/08/17 11:59 07/05/17 12:18 Vitamin A/Vitamin D (A & D Oint) 1 applic EVERY 12 HOURS TOPIC 07/04/17 21:00 08/03/17 20:59 07/05/17 09:11 SABAS KNOTT Jul 05, 2017 19:22
--- NOTE | 2017-07-05 20:08 | General Progress Note ---
Assessment/Plan Problem List: (1) COPD (chronic obstructive pulmonary disease) ICD Codes: J44.9 - Chronic obstructive pulmonary disease SNOMED: 53167856 (2) Suprapubic catheter ICD Codes: Z93.59 - Other cystostomy status SNOMED: 923655751, 617689242 (3) Catheter-associated urinary tract infection ICD Codes: T83.511A - Infection and inflammatory reaction due to indwelling urethral catheter, initial encounter; N39.0 - Urinary tract infection, site not specified SNOMED: 705174657 (4) Anemia ICD Codes: D64.9 - Anemia, unspecified SNOMED: 186458175 (5) Dementia ICD Codes: F03.90 - Unspecified dementia without behavioral disturbance SNOMED: 80885685 (6) Seizure ICD Codes: R56.9 - Unspecified convulsions SNOMED: 90775343 (7) Prostate cancer ICD Codes: C61 - Malignant neoplasm of prostate SNOMED: 066803808 (8) COPD (chronic obstructive pulmonary disease) ICD Codes: J44.9 - Chronic obstructive pulmonary disease, unspecified SNOMED: 51898818 (9) Respiratory distress ICD Codes: R06.03 - Acute respiratory distress SNOMED: 759010379 (10) Sepsis ICD Codes: A41.9 - Sepsis, unspecified organism SNOMED: 28821384 Status: progressing Assessment/Plan resp failure intubated lyte abnormaility copd r/o asp pna dehyration sepsis told urologist for the second time to see for clogged suprapubic cath dementia afebrile Subjective ROS Limited/Unobtainable: Yes Allergies: Coded Allergies: No Known Allergies (Verified , 09/26/12) Objective Last 24 Hour Vital Signs Date Time Temp Pulse Resp B/P (MAP) Pulse Ox O2 Delivery O2 Flow Rate FiO2 07/05/17 19:00 93 22 85/56 100 Mechanical Ventilator 45 07/05/17 18:30 102 23 107/68 100 Mechanical Ventilator 45 07/05/17 18:00 105 22 111/69 94 Mechanical Ventilator 45 07/05/17 17:30 104 24 91/57 94 Mechanical Ventilator 45 07/05/17 17:04 109 18 45 07/05/17 17:00 102 22 100/62 97 Mechanical Ventilator 45 07/05/17 16:30 106 22 100/65 94 Mechanical Ventilator 45 07/05/17 16:00 98.6 105 12 94/55 97 Mechanical Ventilator 45 07/05/17 16:00 45 07/05/17 16:00 133 07/05/17 15:30 103 12 88/59 100 Mechanical Ventilator 45 07/05/17 15:00 104 24 100 Mechanical Ventilator 45 07/05/17 15:00 86 20 85/52 100 Mechanical Ventilator 45 07/05/17 14:46 107 12 100 Mechanical Ventilator 45 07/05/17 14:46 45 07/05/17 14:40 97 19 45 07/05/17 14:30 102 20 100/57 100 Mechanical Ventilator 45 07/05/17 14:00 105 25 108/65 100 Mechanical Ventilator 45 07/05/17 13:30 95 18 97/68 100 Mechanical Ventilator 45 07/05/17 13:00 91 20 92/52 100 Mechanical Ventilator 45 07/05/17 12:57 96 19 45 07/05/17 12:30 99.0 105 25 101/53 99 Mechanical Ventilator 45 07/05/17 12:08 93 12 100 Mechanical Ventilator 45 07/05/17 12:02 89 12 100 Mechanical Ventilator 45 07/05/17 12:02 45 07/05/17 12:00 45 07/05/17 12:00 92 07/05/17 12:00 99.0 95 21 96/67 100 Mechanical Ventilator 45 07/05/17 11:30 91 19 91/56 100 Mechanical Ventilator 45 07/05/17 11:00 94 18 94/54 100 Mechanical Ventilator 45 07/05/17 10:39 114 26 45 07/05/17 10:30 105 20 90/51 99 Mechanical Ventilator 45 07/05/17 10:12 95/49 07/05/17 10:00 105 22 94/51 100 Mechanical Ventilator 45 07/05/17 10:00 99.0 07/05/17 09:45 107 23 95/49 100 Mechanical Ventilator 45 07/05/17 09:30 111 24 94/54 100 Mechanical Ventilator 45 07/05/17 09:15 111 26 100/56 100 Mechanical Ventilator 45 07/05/17 09:00 115 25 101/57 100 Mechanical Ventilator 45 07/05/17 08:50 114 26 45 07/05/17 08:45 115 26 103/55 100 Mechanical Ventilator 45 07/05/17 08:30 115 24 109/57 99 Mechanical Ventilator 45 07/05/17 08:15 111 24 120/65 99 Mechanical Ventilator 45 07/05/17 08:00 100.0 108 20 113/64 99 Mechanical Ventilator 45 07/05/17 08:00 106 07/05/17 08:00 45 07/05/17 07:45 109 23 91/53 100 Mechanical Ventilator 45 07/05/17 07:30 111 23 126/70 100 Mechanical Ventilator 45 07/05/17 07:20 110 21 100 Mechanical Ventilator 45 07/05/17 07:15 112 25 104/65 100 Mechanical Ventilator 45 07/05/17 07:10 45 07/05/17 07:10 110 22 100 Mechanical Ventilator 45 07/05/17 07:01 103 12 45 07/05/17 07:00 112 25 99/60 100 Mechanical Ventilator 45 07/05/17 07:00 88/54 07/05/17 06:45 104 19 94/51 100 Mechanical Ventilator 45 07/05/17 06:30 104 19 94/51 100 Mechanical Ventilator 45 07/05/17 06:15 107 23 94/51 95 Mechanical Ventilator 45 07/05/17 06:00 108 23 98/59 95 Mechanical Ventilator 45 07/05/17 06:00 98/59 07/05/17 05:45 106 22 100/59 100 Mechanical Ventilator 45 07/05/17 05:30 109 23 104/59 98 Mechanical Ventilator 45 07/05/17 05:20 101 21 45 07/05/17 05:15 100 20 98/53 100 Mechanical Ventilator 45 07/05/17 05:00 94/53 07/05/17 05:00 100 20 94/53 100 Mechanical Ventilator 45 07/05/17 04:45 101 20 91/57 100 Mechanical Ventilator 45 07/05/17 04:30 102 20 95/59 100 Mechanical Ventilator 45 07/05/17 04:15 105 21 93/58 100 Mechanical Ventilator 45 07/05/17 04:00 98.3 107 23 102/62 100 Mechanical Ventilator 45 07/05/17 04:00 45 07/05/17 04:00 102/62 07/05/17 04:00 74 07/05/17 03:45 107 22 100/63 99 Mechanical Ventilator 45 07/05/17 03:30 111 25 123/74 98 Mechanical Ventilator 45 07/05/17 03:15 111 25 110/58 99 Mechanical Ventilator 45 07/05/17 03:00 108 22 110/58 100 Mechanical Ventilator 45 07/05/17 03:00 110/58 07/05/17 02:45 106 23 95/54 100 Mechanical Ventilator 45 07/05/17 02:36 127 20 45 07/05/17 02:30 108 22 96/53 100 Mechanical Ventilator 45 07/05/17 02:15 113 20 88/48 100 Mechanical Ventilator 45 07/05/17 02:11 Mechanical Ventilator 07/05/17 02:07 138 Mechanical Ventilator 07/05/17 02:00 114/72 07/05/17 02:00 118 22 114/72 98 Mechanical Ventilator 45 07/05/17 01:45 125 23 146/96 97 Mechanical Ventilator 50 07/05/17 01:30 144 24 124/88 95 Mechanical Ventilator 50 07/05/17 01:22 140 30 50 07/05/17 01:15 97 19 112/63 100 Mechanical Ventilator 50 07/05/17 01:00 99/59 07/05/17 01:00 94 20 99/59 100 Mechanical Ventilator 50 07/05/17 00:45 95 19 100/57 100 Mechanical Ventilator 50 07/05/17 00:30 96 19 100/57 100 Mechanical Ventilator 50 07/05/17 00:15 98 19 99/58 100 Mechanical Ventilator 50 07/05/17 00:00 98 07/05/17 00:00 101/61 07/05/17 00:00 50 07/05/17 00:00 98.2 98 20 101/61 100 Mechanical Ventilator 50 07/04/17 23:47 89 21 100 Mechanical Ventilator 50 07/04/17 23:45 97 20 101/57 100 Mechanical Ventilator 50 07/04/17 23:37 91 17 100 Mechanical Ventilator 50 07/04/17 23:30 93 20 88/47 100 Mechanical Ventilator 50 07/04/17 23:20 91 17 50 07/04/17 23:15 97 20 88/47 100 Mechanical Ventilator 50 07/04/17 23:00 88/47 07/04/17 23:00 97 20 88/47 100 Mechanical Ventilator 50 07/04/17 22:45 99 21 94/52 100 Mechanical Ventilator 50 07/04/17 22:30 105 24 98/60 100 Mechanical Ventilator 50 07/04/17 22:15 97 20 108/69 100 Mechanical Ventilator 50 07/04/17 22:03 104/58 07/04/17 22:00 97 19 94/53 100 Mechanical Ventilator 50 07/04/17 22:00 94/53 07/04/17 21:45 99.1 100 20 97/55 100 Mechanical Ventilator 50 07/04/17 21:30 101 21 104/58 100 Mechanical Ventilator 50 07/04/17 21:15 101 21 88/55 100 Mechanical Ventilator 50 07/04/17 21:15 103 22 50 07/04/17 21:00 99.1 104 21 89/48 100 Mechanical Ventilator 50 07/04/17 21:00 89/48 07/04/17 20:45 115 27 86/45 100 Mechanical Ventilator 50 07/04/17 20:30 120 26 107/90 100 Mechanical Ventilator 50 07/04/17 20:15 111 21 99/55 100 Mechanical Ventilator 50 Intake and Output 07/05/17 07/06/17 19:00 07:00 Intake Total 2439.45 ml Output Total 835 ml Balance 1604.45 ml IV Total 1659.45 ml Tube Feeding 660 ml Other 120 ml Output Urine Total 835 ml Laboratory Tests 07/05/17 03:00: White Blood Count 13.1H, Red Blood Count 3.42L, Hemoglobin 10.6L, Hematocrit 31.3L, Mean Corpuscular Volume 91, Mean Corpuscular Hemoglobin 31.1H, Mean Corpuscular Hemoglobin Concent 34.0, Red Cell Distribution Width 12.7, Platelet Count 251, Mean Platelet Volume 8.7, Neutrophils (%) (Auto) 82.8H, Lymphocytes ( %) (Auto) 8.9L, Monocytes (%) (Auto) 6.5, Eosinophils (%) (Auto) 1.2, Basophils (%) (Auto) 0.6, Sodium Level 138, Potassium Level 3.2L, Chloride Level 106, Carbon Dioxide Level 26, Anion Gap 6, Blood Urea Nitrogen 16, Creatinine 0.7, Estimat Glomerular Filtration Rate , Glucose Level 178H, Lactic Acid Level 1.90 , Calcium Level 8.7, Total Bilirubin 0.4, Aspartate Amino Transf (AST/SGOT) 21, Alanine Aminotransferase (ALT/SGPT) 12, Alkaline Phosphatase 96, Total Protein 5.9L, Albumin 1.8L, Globulin 4.1, Albumin/Globulin Ratio 0.4L 12/11/17 11:15: Vancomycin Level Trough 18.0H Height (Feet): 6 Weight (Pounds): 162 Sary Oakes MD Jul 05, 2017 20:08
--- NOTE | 2017-07-05 20:53 | General Progress Note ---
Assessment/Plan Assessment/Plan ASSESSMENT AND RECOMMENDATIONS: 1. prostate cancer in remission at this time. Current PSA of 5.6. 2. Leukocytosis, secondary to underlying infection, infiltrates noted.ID following 5. Anemia, rule out gastrointestinal bleed. Ferritin wnl. H/H stable Subjective Allergies: Coded Allergies: No Known Allergies (Verified , 09/26/12) Objective Last 24 Hour Vital Signs Date Time Temp Pulse Resp B/P (MAP) Pulse Ox O2 Delivery O2 Flow Rate FiO2 07/05/17 19:45 105 25 100 Mechanical Ventilator 45 07/05/17 19:30 100 28 100 Mechanical Ventilator 07/05/17 19:30 95 21 45 07/05/17 19:00 93 22 85/56 100 Mechanical Ventilator 45 07/05/17 18:30 102 23 107/68 100 Mechanical Ventilator 45 07/05/17 18:00 105 22 111/69 94 Mechanical Ventilator 45 07/05/17 17:30 104 24 91/57 94 Mechanical Ventilator 45 07/05/17 17:04 109 18 45 07/05/17 17:00 102 22 100/62 97 Mechanical Ventilator 45 07/05/17 16:30 106 22 100/65 94 Mechanical Ventilator 45 07/05/17 16:00 98.6 105 12 94/55 97 Mechanical Ventilator 45 07/05/17 16:00 45 07/05/17 16:00 133 07/05/17 15:30 103 12 88/59 100 Mechanical Ventilator 45 07/05/17 15:00 104 24 100 Mechanical Ventilator 45 07/05/17 15:00 86 20 85/52 100 Mechanical Ventilator 45 07/05/17 14:46 107 12 100 Mechanical Ventilator 45 07/05/17 14:46 45 07/05/17 14:40 97 19 45 07/05/17 14:30 102 20 100/57 100 Mechanical Ventilator 45 07/05/17 14:00 105 25 108/65 100 Mechanical Ventilator 45 07/05/17 13:30 95 18 97/68 100 Mechanical Ventilator 45 07/05/17 13:00 91 20 92/52 100 Mechanical Ventilator 45 07/05/17 12:57 96 19 45 07/05/17 12:30 99.0 105 25 101/53 99 Mechanical Ventilator 45 07/05/17 12:08 93 12 100 Mechanical Ventilator 45 07/05/17 12:02 89 12 100 Mechanical Ventilator 45 07/05/17 12:02 45 07/05/17 12:00 45 07/05/17 12:00 92 07/05/17 12:00 99.0 95 21 96/67 100 Mechanical Ventilator 45 07/05/17 11:30 91 19 91/56 100 Mechanical Ventilator 45 07/05/17 11:00 94 18 94/54 100 Mechanical Ventilator 45 07/05/17 10:39 114 26 45 07/05/17 10:30 105 20 90/51 99 Mechanical Ventilator 45 07/05/17 10:12 95/49 07/05/17 10:00 105 22 94/51 100 Mechanical Ventilator 45 07/05/17 10:00 99.0 07/05/17 09:45 107 23 95/49 100 Mechanical Ventilator 45 07/05/17 09:30 111 24 94/54 100 Mechanical Ventilator 45 07/05/17 09:15 111 26 100/56 100 Mechanical Ventilator 45 07/05/17 09:00 115 25 101/57 100 Mechanical Ventilator 45 07/05/17 08:50 114 26 45 07/05/17 08:45 115 26 103/55 100 Mechanical Ventilator 45 07/05/17 08:30 115 24 109/57 99 Mechanical Ventilator 45 07/05/17 08:15 111 24 120/65 99 Mechanical Ventilator 45 07/05/17 08:00 100.0 108 20 113/64 99 Mechanical Ventilator 45 07/05/17 08:00 106 07/05/17 08:00 45 07/05/17 07:45 109 23 91/53 100 Mechanical Ventilator 45 07/05/17 07:30 111 23 126/70 100 Mechanical Ventilator 45 07/05/17 07:20 110 21 100 Mechanical Ventilator 45 07/05/17 07:15 112 25 104/65 100 Mechanical Ventilator 45 07/05/17 07:10 45 07/05/17 07:10 110 22 100 Mechanical Ventilator 45 07/05/17 07:01 103 12 45 07/05/17 07:00 112 25 99/60 100 Mechanical Ventilator 45 07/05/17 07:00 88/54 07/05/17 06:45 104 19 94/51 100 Mechanical Ventilator 45 07/05/17 06:30 104 19 94/51 100 Mechanical Ventilator 45 07/05/17 06:15 107 23 94/51 95 Mechanical Ventilator 45 07/05/17 06:00 108 23 98/59 95 Mechanical Ventilator 45 07/05/17 06:00 98/59 07/05/17 05:45 106 22 100/59 100 Mechanical Ventilator 45 07/05/17 05:30 109 23 104/59 98 Mechanical Ventilator 45 07/05/17 05:20 101 21 45 07/05/17 05:15 100 20 98/53 100 Mechanical Ventilator 45 07/05/17 05:00 94/53 07/05/17 05:00 100 20 94/53 100 Mechanical Ventilator 45 07/05/17 04:45 101 20 91/57 100 Mechanical Ventilator 45 07/05/17 04:30 102 20 95/59 100 Mechanical Ventilator 45 07/05/17 04:15 105 21 93/58 100 Mechanical Ventilator 45 07/05/17 04:00 98.3 107 23 102/62 100 Mechanical Ventilator 45 07/05/17 04:00 45 07/05/17 04:00 102/62 07/05/17 04:00 74 07/05/17 03:45 107 22 100/63 99 Mechanical Ventilator 45 07/05/17 03:30 111 25 123/74 98 Mechanical Ventilator 45 07/05/17 03:15 111 25 110/58 99 Mechanical Ventilator 45 07/05/17 03:00 108 22 110/58 100 Mechanical Ventilator 45 07/05/17 03:00 110/58 07/05/17 02:45 106 23 95/54 100 Mechanical Ventilator 45 07/05/17 02:36 127 20 45 07/05/17 02:30 108 22 96/53 100 Mechanical Ventilator 45 07/05/17 02:15 113 20 88/48 100 Mechanical Ventilator 45 07/05/17 02:11 Mechanical Ventilator 07/05/17 02:07 138 Mechanical Ventilator 07/05/17 02:00 114/72 07/05/17 02:00 118 22 114/72 98 Mechanical Ventilator 45 07/05/17 01:45 125 23 146/96 97 Mechanical Ventilator 50 07/05/17 01:30 144 24 124/88 95 Mechanical Ventilator 50 07/05/17 01:22 140 30 50 07/05/17 01:15 97 19 112/63 100 Mechanical Ventilator 50 07/05/17 01:00 99/59 07/05/17 01:00 94 20 99/59 100 Mechanical Ventilator 50 07/05/17 00:45 95 19 100/57 100 Mechanical Ventilator 50 07/05/17 00:30 96 19 100/57 100 Mechanical Ventilator 50 07/05/17 00:15 98 19 99/58 100 Mechanical Ventilator 50 07/05/17 00:00 98 07/05/17 00:00 101/61 07/05/17 00:00 50 07/05/17 00:00 98.2 98 20 101/61 100 Mechanical Ventilator 50 07/04/17 23:47 89 21 100 Mechanical Ventilator 50 07/04/17 23:45 97 20 101/57 100 Mechanical Ventilator 50 07/04/17 23:37 91 17 100 Mechanical Ventilator 50 07/04/17 23:30 93 20 88/47 100 Mechanical Ventilator 50 07/04/17 23:20 91 17 50 07/04/17 23:15 97 20 88/47 100 Mechanical Ventilator 50 07/04/17 23:00 88/47 07/04/17 23:00 97 20 88/47 100 Mechanical Ventilator 50 07/04/17 22:45 99 21 94/52 100 Mechanical Ventilator 50 07/04/17 22:30 105 24 98/60 100 Mechanical Ventilator 50 07/04/17 22:15 97 20 108/69 100 Mechanical Ventilator 50 07/04/17 22:03 104/58 07/04/17 22:00 97 19 94/53 100 Mechanical Ventilator 50 07/04/17 22:00 94/53 07/04/17 21:45 99.1 100 20 97/55 100 Mechanical Ventilator 50 07/04/17 21:30 101 21 104/58 100 Mechanical Ventilator 50 07/04/17 21:15 101 21 88/55 100 Mechanical Ventilator 50 07/04/17 21:15 103 22 50 07/04/17 21:00 99.1 104 21 89/48 100 Mechanical Ventilator 50 07/04/17 21:00 89/48 Intake and Output 07/05/17 07/06/17 19:00 07:00 Intake Total 2439.45 ml Output Total 835 ml Balance 1604.45 ml IV Total 1659.45 ml Tube Feeding 660 ml Other 120 ml Output Urine Total 835 ml Laboratory Tests 07/05/17 03:00: White Blood Count 13.1H, Red Blood Count 3.42L, Hemoglobin 10.6L, Hematocrit 31.3L, Mean Corpuscular Volume 91, Mean Corpuscular Hemoglobin 31.1H, Mean Corpuscular Hemoglobin Concent 34.0, Red Cell Distribution Width 12.7, Platelet Count 251, Mean Platelet Volume 8.7, Neutrophils (%) (Auto) 82.8H, Lymphocytes ( %) (Auto) 8.9L, Monocytes (%) (Auto) 6.5, Eosinophils (%) (Auto) 1.2, Basophils (%) (Auto) 0.6, Sodium Level 138, Potassium Level 3.2L, Chloride Level 106, Carbon Dioxide Level 26, Anion Gap 6, Blood Urea Nitrogen 16, Creatinine 0.7, Estimat Glomerular Filtration Rate , Glucose Level 178H, Lactic Acid Level 1.90 , Calcium Level 8.7, Total Bilirubin 0.4, Aspartate Amino Transf (AST/SGOT) 21, Alanine Aminotransferase (ALT/SGPT) 12, Alkaline Phosphatase 96, Total Protein 5.9L, Albumin 1.8L, Globulin 4.1, Albumin/Globulin Ratio 0.4L 07/05/17 11:15: Vancomycin Level Trough 18.0H Height (Feet): 6 Weight (Pounds): 162 Jose Luis Rendon Jul 05, 2017 20:53
[2017-07-05] MEDS: Dyna-Hex 2% Top Sol 2oz TOPIC SCH (20:58)
--- NOTE | 2017-07-05 22:49 | General Progress Note ---
Assessment/Plan Assessment/Plan Assessment - OBS - dysphagia / GT - prostate CA - anemia - s/p Suprapubic catheter - DM - Leukocytosis Recommendations - GT feeding - Elevate HOB - monitor H&H - PPI - abx Subjective Allergies: Coded Allergies: No Known Allergies (Verified , 09/26/12) Subjective above noted d/w RN tolerating feeds non communicative Objective Last 24 Hour Vital Signs Date Time Temp Pulse Resp B/P (MAP) Pulse Ox O2 Delivery O2 Flow Rate FiO2 07/05/17 21:30 100 23 45 07/05/17 19:45 105 25 100 Mechanical Ventilator 45 07/05/17 19:30 100 28 100 Mechanical Ventilator 07/05/17 19:30 95 21 45 07/05/17 19:00 93 22 85/56 100 Mechanical Ventilator 45 07/05/17 18:30 102 23 107/68 100 Mechanical Ventilator 45 07/05/17 18:00 105 22 111/69 94 Mechanical Ventilator 45 07/05/17 17:30 104 24 91/57 94 Mechanical Ventilator 45 07/05/17 17:04 109 18 45 07/05/17 17:00 102 22 100/62 97 Mechanical Ventilator 45 07/05/17 16:30 106 22 100/65 94 Mechanical Ventilator 45 07/05/17 16:00 98.6 105 12 94/55 97 Mechanical Ventilator 45 07/05/17 16:00 45 07/05/17 16:00 133 07/05/17 15:30 103 12 88/59 100 Mechanical Ventilator 45 07/05/17 15:00 104 24 100 Mechanical Ventilator 45 07/05/17 15:00 86 20 85/52 100 Mechanical Ventilator 45 07/05/17 14:46 107 12 100 Mechanical Ventilator 45 07/05/17 14:46 45 07/05/17 14:40 97 19 45 07/05/17 14:30 102 20 100/57 100 Mechanical Ventilator 45 07/05/17 14:00 105 25 108/65 100 Mechanical Ventilator 45 07/05/17 13:30 95 18 97/68 100 Mechanical Ventilator 45 07/05/17 13:00 91 20 92/52 100 Mechanical Ventilator 45 07/05/17 12:57 96 19 45 07/05/17 12:30 99.0 105 25 101/53 99 Mechanical Ventilator 45 07/05/17 12:08 93 12 100 Mechanical Ventilator 45 07/05/17 12:02 89 12 100 Mechanical Ventilator 45 07/05/17 12:02 45 07/05/17 12:00 45 07/05/17 12:00 92 07/05/17 12:00 99.0 95 21 96/67 100 Mechanical Ventilator 45 07/05/17 11:30 91 19 91/56 100 Mechanical Ventilator 45 07/05/17 11:00 94 18 94/54 100 Mechanical Ventilator 45 07/05/17 10:39 114 26 45 07/05/17 10:30 105 20 90/51 99 Mechanical Ventilator 45 07/05/17 10:12 95/49 07/05/17 10:00 105 22 94/51 100 Mechanical Ventilator 45 07/05/17 10:00 99.0 07/05/17 09:45 107 23 95/49 100 Mechanical Ventilator 45 07/05/17 09:30 111 24 94/54 100 Mechanical Ventilator 45 07/05/17 09:15 111 26 100/56 100 Mechanical Ventilator 45 07/05/17 09:00 115 25 101/57 100 Mechanical Ventilator 45 07/05/17 08:50 114 26 45 07/05/17 08:45 115 26 103/55 100 Mechanical Ventilator 45 07/05/17 08:30 115 24 109/57 99 Mechanical Ventilator 45 07/05/17 08:15 111 24 120/65 99 Mechanical Ventilator 45 07/05/17 08:00 100.0 108 20 113/64 99 Mechanical Ventilator 45 07/05/17 08:00 106 07/05/17 08:00 45 07/05/17 07:45 109 23 91/53 100 Mechanical Ventilator 45 07/05/17 07:30 111 23 126/70 100 Mechanical Ventilator 45 07/05/17 07:20 110 21 100 Mechanical Ventilator 45 07/05/17 07:15 112 25 104/65 100 Mechanical Ventilator 45 07/05/17 07:10 45 07/05/17 07:10 110 22 100 Mechanical Ventilator 45 07/05/17 07:01 103 12 45 07/05/17 07:00 112 25 99/60 100 Mechanical Ventilator 45 07/05/17 07:00 88/54 07/05/17 06:45 104 19 94/51 100 Mechanical Ventilator 45 07/05/17 06:30 104 19 94/51 100 Mechanical Ventilator 45 07/05/17 06:15 107 23 94/51 95 Mechanical Ventilator 45 07/05/17 06:00 108 23 98/59 95 Mechanical Ventilator 45 07/05/17 06:00 98/59 07/05/17 05:45 106 22 100/59 100 Mechanical Ventilator 45 07/05/17 05:30 109 23 104/59 98 Mechanical Ventilator 45 07/05/17 05:20 101 21 45 07/05/17 05:15 100 20 98/53 100 Mechanical Ventilator 45 07/05/17 05:00 94/53 07/05/17 05:00 100 20 94/53 100 Mechanical Ventilator 45 07/05/17 04:45 101 20 91/57 100 Mechanical Ventilator 45 07/05/17 04:30 102 20 95/59 100 Mechanical Ventilator 45 07/05/17 04:15 105 21 93/58 100 Mechanical Ventilator 45 07/05/17 04:00 98.3 107 23 102/62 100 Mechanical Ventilator 45 07/05/17 04:00 45 07/05/17 04:00 102/62 07/05/17 04:00 74 07/05/17 03:45 107 22 100/63 99 Mechanical Ventilator 45 07/05/17 03:30 111 25 123/74 98 Mechanical Ventilator 45 07/05/17 03:15 111 25 110/58 99 Mechanical Ventilator 45 07/05/17 03:00 108 22 110/58 100 Mechanical Ventilator 45 07/05/17 03:00 110/58 07/05/17 02:45 106 23 95/54 100 Mechanical Ventilator 45 07/05/17 02:36 127 20 45 07/05/17 02:30 108 22 96/53 100 Mechanical Ventilator 45 07/05/17 02:15 113 20 88/48 100 Mechanical Ventilator 45 07/05/17 02:11 Mechanical Ventilator 07/05/17 02:07 138 Mechanical Ventilator 07/05/17 02:00 114/72 07/05/17 02:00 118 22 114/72 98 Mechanical Ventilator 45 07/05/17 01:45 125 23 146/96 97 Mechanical Ventilator 50 07/05/17 01:30 144 24 124/88 95 Mechanical Ventilator 50 07/05/17 01:22 140 30 50 07/05/17 01:15 97 19 112/63 100 Mechanical Ventilator 50 07/05/17 01:00 99/59 07/05/17 01:00 94 20 99/59 100 Mechanical Ventilator 50 07/05/17 00:45 95 19 100/57 100 Mechanical Ventilator 50 07/05/17 00:30 96 19 100/57 100 Mechanical Ventilator 50 07/05/17 00:15 98 19 99/58 100 Mechanical Ventilator 50 07/05/17 00:00 98 07/05/17 00:00 101/61 07/05/17 00:00 50 07/05/17 00:00 98.2 98 20 101/61 100 Mechanical Ventilator 50 07/04/17 23:47 89 21 100 Mechanical Ventilator 50 07/04/17 23:45 97 20 101/57 100 Mechanical Ventilator 50 07/04/17 23:37 91 17 100 Mechanical Ventilator 50 07/04/17 23:30 93 20 88/47 100 Mechanical Ventilator 50 07/04/17 23:20 91 17 50 07/04/17 23:15 97 20 88/47 100 Mechanical Ventilator 50 07/04/17 23:00 88/47 07/04/17 23:00 97 20 88/47 100 Mechanical Ventilator 50 07/04/17 22:45 99 21 94/52 100 Mechanical Ventilator 50 Intake and Output 07/05/17 07/06/17 19:00 07:00 Intake Total 2439.45 ml Output Total 835 ml Balance 1604.45 ml IV Total 1659.45 ml Tube Feeding 660 ml Other 120 ml Output Urine Total 835 ml Laboratory Tests 07/05/17 03:00: White Blood Count 13.1H, Red Blood Count 3.42L, Hemoglobin 10.6L, Hematocrit 31.3L, Mean Corpuscular Volume 91, Mean Corpuscular Hemoglobin 31.1H, Mean Corpuscular Hemoglobin Concent 34.0, Red Cell Distribution Width 12.7, Platelet Count 251, Mean Platelet Volume 8.7, Neutrophils (%) (Auto) 82.8H, Lymphocytes ( %) (Auto) 8.9L, Monocytes (%) (Auto) 6.5, Eosinophils (%) (Auto) 1.2, Basophils (%) (Auto) 0.6, Sodium Level 138, Potassium Level 3.2L, Chloride Level 106, Carbon Dioxide Level 26, Anion Gap 6, Blood Urea Nitrogen 16, Creatinine 0.7, Estimat Glomerular Filtration Rate , Glucose Level 178H, Lactic Acid Level 1.90 , Calcium Level 8.7, Total Bilirubin 0.4, Aspartate Amino Transf (AST/SGOT) 21, Alanine Aminotransferase (ALT/SGPT) 12, Alkaline Phosphatase 96, Total Protein 5.9L, Albumin 1.8L, Globulin 4.1, Albumin/Globulin Ratio 0.4L 07/05/17 11:15: Vancomycin Level Trough 18.0H Height (Feet): 6 Weight (Pounds): 162 Objective Eldely WM NCAT, (+) ETT supple, (+ ) IJ catheter CTA RR soft flat, (+) GT, (+) SP catheter no edema OBS CURTIS GARCIA Jul 05, 2017 22:49
[2017-07-06] VITALS (32 sets, daily range): BP systolic 84–132; BP diastolic 47–109
[2017-07-06] MEDS: NovoLOG Insulin Flexpen SUBQ SCH ×5 (00:55→23:42)
[2017-07-06] MEDS: Vancomycin 1gm in D5W 275ml IVPB SCH ×3 (00:57→23:40)
[2017-07-06] MEDS: Albuterol/Ipratropium 3ml neb HHN SCH ×7 (00:59→23:27)
[2017-07-06] MEDS: Zoysn 3.37gm in D5W 55ml IVPB SCH ×3 (05:47→22:00)
[2017-07-06 05:51] LABS: BASOPHILS % (AUTO) 0.4 % (0.0-2.0); EOSINOPHILS % (AUTO) 1.7 % (0.0-3.0); LYMPHOCYTES % (AUTO) 11.5 % (20.0-45.0); MEAN CORPUSCULAR HEMOGLOBIN 31.9 PG (27.0-31.0); MEAN CORPUSCULAR HGB CONC 35.2 G/DL (32.0-36.0); MEAN CORPUSCULAR VOLUME 91 FL (80-99); MEAN PLATELET VOLUME 9.2 FL (6.5-10.1); MONOCYTES % (AUTO) 6.5 % (1.0-10.0); NEUTROPHILS % (AUTO) 79.9 % (45.0-75.0); PLATELET COUNT 331 K/UL (150-450); RED BLOOD COUNT 3.19 M/UL (4.70-6.10); RED CELL DISTRIBUTION WIDTH 13.1 % (11.6-14.8); WHITE BLOOD COUNT 15.9 K/UL (4.8-10.8)
--- NOTE | 2017-07-06 06:14 | General Progress Note ---
Assessment/Plan Problem List: (1) Diabetes mellitus ICD Codes: E11.9 - Type 2 diabetes mellitus without complications SNOMED: 58936650 (2) ATN (acute tubular necrosis) ICD Codes: N17.0 - Acute kidney failure with tubular necrosis SNOMED: 38236288 (3) G tube feedings ICD Codes: Z93.1 - Gastrostomy status SNOMED: 653715031, 128603008 (4) Dementia ICD Codes: F03.90 - Unspecified dementia without behavioral disturbance SNOMED: 12035950 (5) Respiratory distress ICD Codes: R06.03 - Acute respiratory distress SNOMED: 488890157 (6) Suprapubic catheter ICD Codes: Z93.59 - Other cystostomy status SNOMED: 543945678, 961015544 Assessment/Plan continue Levemir 8 units bid continue Novolog sliding scale Subjective ROS Limited/Unobtainable: Yes Allergies: Coded Allergies: No Known Allergies (Verified , 09/26/12) Subjective events noted Objective Last 24 Hour Vital Signs Date Time Temp Pulse Resp B/P (MAP) Pulse Ox O2 Delivery O2 Flow Rate FiO2 07/06/17 04:31 125 27 45 07/06/17 04:00 45 07/06/17 04:00 120 07/06/17 03:30 126 32 97 Mechanical Ventilator 07/06/17 03:30 122 36 45 07/06/17 03:30 Mechanical Ventilator 07/06/17 02:00 93/56 07/06/17 01:15 102 23 95/55 100 Mechanical Ventilator 45 07/06/17 01:01 100 20 45 07/06/17 01:00 87/59 07/06/17 01:00 105 26 87/59 100 Mechanical Ventilator 45 07/06/17 00:45 101 24 105/88 100 Mechanical Ventilator 45 07/06/17 00:30 105 25 94/57 100 Mechanical Ventilator 45 07/06/17 00:15 100 23 99/57 100 Mechanical Ventilator 45 07/06/17 00:00 101 20 100 Mechanical Ventilator 07/06/17 00:00 104 24 100 Mechanical Ventilator 45 07/06/17 00:00 98.3 100 23 89/52 100 Mechanical Ventilator 45 07/06/17 00:00 97 07/06/17 00:00 89/52 07/05/17 23:45 96 22 97/64 100 Mechanical Ventilator 45 07/05/17 23:30 101 24 45 07/05/17 23:30 94 22 99/64 100 Mechanical Ventilator 45 07/05/17 23:15 93 20 92/55 100 Mechanical Ventilator 45 07/05/17 23:00 98 21 90/50 100 Mechanical Ventilator 45 07/05/17 23:00 90/50 07/05/17 22:45 98 22 91/54 100 Mechanical Ventilator 45 07/05/17 22:30 100 22 99/59 100 Mechanical Ventilator 45 07/05/17 22:15 101 24 93/56 100 Mechanical Ventilator 45 07/05/17 22:00 102/57 07/05/17 22:00 102 23 102/57 100 Mechanical Ventilator 45 07/05/17 21:45 102 22 99/61 100 Mechanical Ventilator 45 07/05/17 21:30 106 26 116/64 99 Mechanical Ventilator 45 07/05/17 21:30 100 23 45 07/05/17 21:15 110 26 94/60 99 Mechanical Ventilator 45 07/05/17 21:00 103 26 94/60 100 Mechanical Ventilator 45 07/05/17 21:00 94/60 07/05/17 20:45 105 26 107/72 100 Mechanical Ventilator 45 07/05/17 20:30 105 22 102/68 100 Mechanical Ventilator 45 07/05/17 20:15 97 22 92/74 100 Mechanical Ventilator 45 07/05/17 20:00 45 07/05/17 20:00 92/74 07/05/17 20:00 92 07/05/17 20:00 98.1 96 24 92/74 100 Mechanical Ventilator 45 07/05/17 19:45 105 25 100 Mechanical Ventilator 45 07/05/17 19:45 92 23 99/70 100 Mechanical Ventilator 45 07/05/17 19:30 100 28 100 Mechanical Ventilator 07/05/17 19:30 91 23 99/70 100 Mechanical Ventilator 45 07/05/17 19:30 95 21 45 07/05/17 19:00 93 22 85/56 100 Mechanical Ventilator 45 07/05/17 19:00 89/57 07/05/17 18:30 102 23 107/68 100 Mechanical Ventilator 45 07/05/17 18:00 105 22 111/69 94 Mechanical Ventilator 45 07/05/17 17:30 104 24 91/57 94 Mechanical Ventilator 45 07/05/17 17:04 109 18 45 07/05/17 17:00 102 22 100/62 97 Mechanical Ventilator 45 07/05/17 16:30 106 22 100/65 94 Mechanical Ventilator 45 07/05/17 16:00 98.6 105 12 94/55 97 Mechanical Ventilator 45 07/05/17 16:00 45 07/05/17 16:00 133 07/05/17 15:30 103 12 88/59 100 Mechanical Ventilator 45 07/05/17 15:00 104 24 100 Mechanical Ventilator 45 07/05/17 15:00 86 20 85/52 100 Mechanical Ventilator 45 07/05/17 14:46 107 12 100 Mechanical Ventilator 45 07/05/17 14:46 45 07/05/17 14:40 97 19 45 07/05/17 14:30 102 20 100/57 100 Mechanical Ventilator 45 07/05/17 14:00 105 25 108/65 100 Mechanical Ventilator 45 07/05/17 13:30 95 18 97/68 100 Mechanical Ventilator 45 07/05/17 13:00 91 20 92/52 100 Mechanical Ventilator 45 07/05/17 12:57 96 19 45 07/05/17 12:30 99.0 105 25 101/53 99 Mechanical Ventilator 45 07/05/17 12:08 93 12 100 Mechanical Ventilator 45 07/05/17 12:02 89 12 100 Mechanical Ventilator 45 07/05/17 12:02 45 07/05/17 12:00 45 07/05/17 12:00 92 07/05/17 12:00 99.0 95 21 96/67 100 Mechanical Ventilator 45 07/05/17 11:30 91 19 91/56 100 Mechanical Ventilator 45 07/05/17 11:00 94 18 94/54 100 Mechanical Ventilator 45 07/05/17 10:39 114 26 45 07/05/17 10:30 105 20 90/51 99 Mechanical Ventilator 45 07/05/17 10:12 95/49 07/05/17 10:00 105 22 94/51 100 Mechanical Ventilator 45 07/05/17 10:00 99.0 07/05/17 09:45 107 23 95/49 100 Mechanical Ventilator 45 07/05/17 09:30 111 24 94/54 100 Mechanical Ventilator 45 07/05/17 09:15 111 26 100/56 100 Mechanical Ventilator 45 07/05/17 09:00 115 25 101/57 100 Mechanical Ventilator 45 07/05/17 08:50 114 26 45 07/05/17 08:45 115 26 103/55 100 Mechanical Ventilator 45 07/05/17 08:30 115 24 109/57 99 Mechanical Ventilator 45 07/05/17 08:15 111 24 120/65 99 Mechanical Ventilator 45 07/05/17 08:00 100.0 108 20 113/64 99 Mechanical Ventilator 45 07/05/17 08:00 106 07/05/17 08:00 45 07/05/17 07:45 109 23 91/53 100 Mechanical Ventilator 45 07/05/17 07:30 111 23 126/70 100 Mechanical Ventilator 45 07/05/17 07:20 110 21 100 Mechanical Ventilator 45 07/05/17 07:15 112 25 104/65 100 Mechanical Ventilator 45 07/05/17 07:10 45 07/05/17 07:10 110 22 100 Mechanical Ventilator 45 07/05/17 07:01 103 12 45 07/05/17 07:00 112 25 99/60 100 Mechanical Ventilator 45 07/05/17 07:00 88/54 07/05/17 06:45 104 19 94/51 100 Mechanical Ventilator 45 07/05/17 06:30 104 19 94/51 100 Mechanical Ventilator 45 07/05/17 06:15 107 23 94/51 95 Mechanical Ventilator 45 Laboratory Tests 07/05/17 11:15: Vancomycin Level Trough 18.0H 07/06/17 05:00: White Blood Count 15.9H, Red Blood Count 3.19L, Hemoglobin 10.2L, Hematocrit 28.9L, Mean Corpuscular Volume 91, Mean Corpuscular Hemoglobin 31.9H, Mean Corpuscular Hemoglobin Concent 35.2, Red Cell Distribution Width 13.1, Platelet Count 331, Mean Platelet Volume 9.2, Neutrophils (%) (Auto) 79.9H, Lymphocytes ( %) (Auto) 11.5L, Monocytes (%) (Auto) 6.5, Eosinophils (%) (Auto) 1.7, Basophils (%) (Auto) 0.4, Sodium Level [Pending], Potassium Level [Pending], Chloride Level [Pending], Carbon Dioxide Level [Pending], Blood Urea Nitrogen [ Pending], Creatinine [Pending], Estimat Glomerular Filtration Rate [Pending], Glucose Level [Pending], Lactic Acid Level [Pending], Uric Acid [Pending], Calcium Level [Pending], Phosphorus Level [Pending], Magnesium Level [Pending], Ferritin [Pending], Total Bilirubin [Pending], Gamma Glutamyl Transpeptidase [ Pending], Aspartate Amino Transf (AST/SGOT) [Pending], Alanine Aminotransferase (ALT/SGPT) [Pending], Alkaline Phosphatase [Pending], C-Reactive Protein, Quantitative [Pending], Pro-B-Type Natriuretic Peptide [Pending], Total Protein [Pending], Albumin [Pending], Globulin [Pending], Triglycerides Level [Pending] , Cholesterol Level [Pending], LDL Cholesterol [Pending], HDL Cholesterol [ Pending], Cholesterol/HDL Ratio [Pending], Vitamin B12 Level [Pending], Folate [ Pending], Thyroid Stimulating Hormone (TSH) [Pending] Height (Feet): 6 Weight (Pounds): 162 General Appearance: moderate distress Neck: normal alignment Cardiovascular: normal rate Respiratory/Chest: decreased breath sounds Objective Current Medications Medications (Trade) Dose Ordered Sig/Matt Route PRN Reason Start Time Stop Time Status Last Admin Dose Admin Acetaminophen (Tylenol) 650 mg Q4H PRN GT Mild Pain (1-3) 07/02/17 19:00 08/01/17 18:59 07/05/17 09:12 Acetaminophen/ Hydrocodone Bitart ([place] 5/325) 1 tab QID PRN ORAL for moderate pain (4-6) 07/03/17 18:45 07/10/17 18:44 Albuterol/ Ipratropium (Albuterol/ Ipratropium) 3 ml Q4H HHN 07/02/17 19:00 07/07/17 18:59 07/06/17 00:59 Aspirin (ASA) 81 mg DAILY GT 07/03/17 09:00 08/02/17 08:59 07/05/17 09:08 Chlorhexidine Gluconate (Mari-Hex 2%) 1 applic DAILY@1999 TOPIC 07/03/17 20:00 08/02/17 19:59 07/05/17 20:58 Dextrose (Dextrose 50%) STAT PRN IV Hypoglycemia 07/02/17 19:00 08/01/17 18:59 Enoxaparin Sodium (Lovenox) 70 mg EVERY 12 HOURS SUBQ 07/03/17 09:00 08/02/17 08:59 07/05/17 20:59 Famotidine (Pepcid I.v.) 20 mg Q12HR IVP 07/05/17 23:00 08/04/17 22:59 07/05/17 22:21 Insulin Aspart (NovoLOG) Q6HR SUBQ 07/04/17 00:00 08/01/17 20:59 07/06/17 05:48 Insulin Detemir (Levemir) 8 units BID SUBQ 07/03/17 22:00 08/02/17 21:59 07/05/17 18:13 Lorazepam (Ativan 2mg/ml 1ml) 0.5 mg Q3HR PRN IV For Anxiety 07/03/17 18:30 07/10/17 18:29 07/05/17 14:36 Midodrine (Pro-Amatine) 10 mg THREE TIMES A DAY GT 07/03/17 09:00 08/02/17 08:59 07/05/17 18:10 Norepinephrine Bitartrate 4 mg/ Dextrose 250 ml @ 0 mls/hr Q24H IV 07/02/17 21:31 08/01/17 21:30 07/05/17 10:12 Ondansetron HCl (Zofran) 4 mg Q6H PRN GT Nausea & Vomiting 07/02/17 19:00 08/01/17 18:59 Pantoprazole (Protonix) 40 mg DAILY IV 07/03/17 09:00 08/02/17 08:59 07/05/17 09:09 Piperacillin Sod/ Tazobactam Sod 3.375 gm/Dextrose 55 ml @ 13.75 mls/ hr EVERY 8 HOURS IVPB 07/02/17 23:00 07/07/17 22:59 07/06/17 05:47 Sodium Chloride 1,000 ml @ 100 mls/hr Q10H IVLG 07/02/17 20:45 08/01/17 20:44 07/06/17 05:47 Vancomycin HCl (Vanco rx to dose) 1 ea DAILY PRN MISC RX TO DOSE PROTOCOL 07/02/17 19:00 08/01/17 18:59 Vancomycin HCl 1 gm/Dextrose 275 ml @ 183.708 mls/hr Q12HR@0000,1200 IVPB 07/03/17 12:00 07/08/17 11:59 07/06/17 00:57 Vitamin A/Vitamin D (A & D Oint) 1 applic EVERY 12 HOURS TOPIC 07/04/17 21:00 08/03/17 20:59 07/05/17 21:00 Item Value Date Time Bedside Blood Glucose 142 mg/dl H 07/06/17 0600 Bedside Blood Glucose 160 mg/dl H 07/06/17 0055 Bedside Blood Glucose 169 mg/dl H 07/05/17 1813 Bedside Blood Glucose 194 mg/dl H 07/05/17 1224 MARIA EUGENIA AUGUST Jul 06, 2017 06:14
[2017-07-06 06:21] LABS: ALANINE AMINOTRANSFERASE 18 U/L (12-78); ALBUMIN/GLOBULIN RATIO 0.4 (1.0-2.7); ANION GAP 6 mmol/L (5-15); ASPARTATE AMINO TRANSFERASE 13 U/L (15-37); CALCIUM 8.4 MG/DL (8.5-10.1); CARBON DIOXIDE 27 MMOL/L (21-32); CHLORIDE 104 MMOL/L (98-107); CHOLESTEROL 115 MG/DL (< 200); CHOLESTEROL/HDL RATIO 4.8 (3.3-4.4); CREATININE 0.7 MG/DL (0.55-1.30); CRP QUANT 18.7 mg/dL (0.00-0.90); FERRITIN 146 NG/ML (8-388); MAGNESIUM 1.7 MG/DL (1.8-2.4); PHOSPHORUS 2.5 MG/DL (2.5-4.9); POTASSIUM 3.8 MMOL/L (3.5-5.1); SODIUM 137 MMOL/L (136-145); THYROID STIMULATING HORMONE 1.241 uiU/mL (0.358-3.740); TOTAL PROTEIN 6.1 G/DL (6.4-8.2); URIC ACID 2.2 MG/DL (2.6-7.2)
[2017-07-06 06:59] LABS: FOLIC ACID 30.3 NG/ML (8.6-58.9)
[2017-07-06] MEDS: Pantoprazole Inj IV SCH (08:54)
[2017-07-06] MEDS: Vitamin A&D Oint 2oz Tube TOPIC SCH ×2 (08:54→21:01)
[2017-07-06] MEDS: Aspirin Baby 81mg GT SCH (08:54)
[2017-07-06] MEDS: Midodrine 10mg tab GT SCH ×3 (08:54→18:04)
[2017-07-06] MEDS: Levemir Flexpen SUBQ SCH ×2 (09:32→18:05)
[2017-07-06] MEDS: Enoxaparin Sodium 300mg/3ml vial SUBQ SCH ×2 (09:32→21:02)
--- NOTE | 2017-07-06 12:34 | Nephrology Progress Note ---
Assessment/Plan Problem List: (1) Respiratory distress (2) Suprapubic catheter (3) Septic shock (4) Electrolyte abnormality Assessment HypoKalemia- Respiratory Failure Septic shock / Pneumonia / UTI Oliguria due to low BP Prostate cancer with suprapubic catheter. Severe Alzheimer dementia. Severe protein-calorie malnutrition. Anemia. Hyperglycemia. Plan Plan: FLuid challenge- Cortisol level Antibiotics pulmonary support K supplements Per order Subjective ROS Limited/Unobtainable: Yes Objective Objective Last 24 Hour Vital Signs Date Time Temp Pulse Resp B/P (MAP) Pulse Ox O2 Delivery O2 Flow Rate FiO2 07/06/17 12:00 45 07/06/17 12:00 107 07/06/17 11:02 106 28 100 Mechanical Ventilator 45 07/06/17 11:00 103 23 111/62 100 Mechanical Ventilator 45 07/06/17 10:59 102 23 45 07/06/17 10:54 102 24 99 Mechanical Ventilator 07/06/17 10:00 100 29 101/71 100 Mechanical Ventilator 45 07/06/17 09:57 113 28 45 07/06/17 09:00 99.0 104 24 96/63 100 Mechanical Ventilator 45 07/06/17 08:00 99.7 101 25 85/47 100 Mechanical Ventilator 45 07/06/17 08:00 45 07/06/17 08:00 100 07/06/17 07:11 Mechanical Ventilator 07/06/17 07:10 Mechanical Ventilator 07/06/17 07:08 128 34 45 07/06/17 07:00 107 24 104/60 100 Mechanical Ventilator 45 07/06/17 06:00 112 24 89/49 99 Mechanical Ventilator 45 07/06/17 05:30 112 24 88/48 99 Mechanical Ventilator 45 07/06/17 05:00 118 26 101/56 99 Mechanical Ventilator 45 07/06/17 04:31 125 27 45 07/06/17 04:30 129 28 114/95 98 Mechanical Ventilator 45 07/06/17 04:00 45 07/06/17 04:00 98.2 126 27 117/77 97 Mechanical Ventilator 45 07/06/17 04:00 120 07/06/17 03:30 126 32 97 Mechanical Ventilator 07/06/17 03:30 108 26 115/74 100 Mechanical Ventilator 45 07/06/17 03:30 122 36 45 07/06/17 03:30 Mechanical Ventilator 07/06/17 03:00 101 23 95/55 100 Mechanical Ventilator 45 07/06/17 02:30 102 23 98/59 100 Mechanical Ventilator 45 07/06/17 02:00 100 23 96/55 100 Mechanical Ventilator 45 07/06/17 02:00 93/56 07/06/17 01:15 102 23 95/55 100 Mechanical Ventilator 45 07/06/17 01:01 100 20 45 07/06/17 01:00 87/59 07/06/17 01:00 105 26 87/59 100 Mechanical Ventilator 45 07/06/17 00:45 101 24 105/88 100 Mechanical Ventilator 45 07/06/17 00:30 105 25 94/57 100 Mechanical Ventilator 45 07/06/17 00:15 100 23 99/57 100 Mechanical Ventilator 45 07/06/17 00:00 101 20 100 Mechanical Ventilator 07/06/17 00:00 104 24 100 Mechanical Ventilator 45 07/06/17 00:00 98.3 100 23 89/52 100 Mechanical Ventilator 45 07/06/17 00:00 97 07/06/17 00:00 89/52 07/05/17 23:45 96 22 97/64 100 Mechanical Ventilator 45 07/05/17 23:30 101 24 45 07/05/17 23:30 94 22 99/64 100 Mechanical Ventilator 45 07/05/17 23:15 93 20 92/55 100 Mechanical Ventilator 45 07/05/17 23:00 98 21 90/50 100 Mechanical Ventilator 45 07/05/17 23:00 90/50 07/05/17 22:45 98 22 91/54 100 Mechanical Ventilator 45 07/05/17 22:30 100 22 99/59 100 Mechanical Ventilator 45 07/05/17 22:15 101 24 93/56 100 Mechanical Ventilator 45 07/05/17 22:00 102/57 07/05/17 22:00 102 23 102/57 100 Mechanical Ventilator 45 07/05/17 21:45 102 22 99/61 100 Mechanical Ventilator 45 07/05/17 21:30 106 26 116/64 99 Mechanical Ventilator 45 07/05/17 21:30 100 23 45 07/05/17 21:15 110 26 94/60 99 Mechanical Ventilator 45 07/05/17 21:00 103 26 94/60 100 Mechanical Ventilator 45 07/05/17 21:00 94/60 07/05/17 20:45 105 26 107/72 100 Mechanical Ventilator 45 07/05/17 20:30 105 22 102/68 100 Mechanical Ventilator 45 07/05/17 20:15 97 22 92/74 100 Mechanical Ventilator 45 07/05/17 20:00 45 07/05/17 20:00 92/74 07/05/17 20:00 92 07/05/17 20:00 98.1 96 24 92/74 100 Mechanical Ventilator 45 07/05/17 19:45 105 25 100 Mechanical Ventilator 45 07/05/17 19:45 92 23 99/70 100 Mechanical Ventilator 45 07/05/17 19:30 100 28 100 Mechanical Ventilator 07/05/17 19:30 91 23 99/70 100 Mechanical Ventilator 45 07/05/17 19:30 95 21 45 07/05/17 19:00 93 22 85/56 100 Mechanical Ventilator 45 07/05/17 19:00 89/57 07/05/17 18:30 102 23 107/68 100 Mechanical Ventilator 45 07/05/17 18:00 105 22 111/69 94 Mechanical Ventilator 45 07/05/17 17:30 104 24 91/57 94 Mechanical Ventilator 45 07/05/17 17:04 109 18 45 07/05/17 17:00 102 22 100/62 97 Mechanical Ventilator 45 07/05/17 16:30 106 22 100/65 94 Mechanical Ventilator 45 07/05/17 16:00 98.6 105 12 94/55 97 Mechanical Ventilator 45 07/05/17 16:00 45 07/05/17 16:00 133 07/05/17 15:30 103 12 88/59 100 Mechanical Ventilator 45 07/05/17 15:00 104 24 100 Mechanical Ventilator 45 07/05/17 15:00 86 20 85/52 100 Mechanical Ventilator 45 07/05/17 14:46 107 12 100 Mechanical Ventilator 45 07/05/17 14:46 45 07/05/17 14:40 97 19 45 07/05/17 14:30 102 20 100/57 100 Mechanical Ventilator 45 07/05/17 14:00 105 25 108/65 100 Mechanical Ventilator 45 07/05/17 13:30 95 18 97/68 100 Mechanical Ventilator 45 07/05/17 13:00 91 20 92/52 100 Mechanical Ventilator 45 07/05/17 12:57 96 19 45 Intake and Output 07/06/17 07/07/17 19:00 07:00 Intake Total 796.25 ml Output Total 250 ml Balance 546.25 ml Intake Free Water 30 ml IV Total 441.25 ml Tube Feeding 275 ml Other 50 ml Output Urine Total 250 ml Laboratory Tests 07/06/17 05:00: White Blood Count 15.9H, Red Blood Count 3.19L, Hemoglobin 10.2L, Hematocrit 28.9L, Mean Corpuscular Volume 91, Mean Corpuscular Hemoglobin 31.9H, Mean Corpuscular Hemoglobin Concent 35.2, Red Cell Distribution Width 13.1, Platelet Count 331, Mean Platelet Volume 9.2, Neutrophils (%) (Auto) 79.9H, Lymphocytes ( %) (Auto) 11.5L, Monocytes (%) (Auto) 6.5, Eosinophils (%) (Auto) 1.7, Basophils (%) (Auto) 0.4, Miscellaneous Test 2 [Pending], Sodium Level 137, Potassium Level 3.8, Chloride Level 104, Carbon Dioxide Level 27, Anion Gap 6, Blood Urea Nitrogen 17, Creatinine 0.7, Estimat Glomerular Filtration Rate , Glucose Level 145H, Lactic Acid Level 1.50, Uric Acid 2.2L, Calcium Level 8.4L, Phosphorus Level 2.5, Magnesium Level 1.7L, Ferritin 146, Total Bilirubin 0.3, Gamma Glutamyl Transpeptidase 58, Aspartate Amino Transf (AST/SGOT) 13L, Alanine Aminotransferase (ALT/SGPT) 18, Alkaline Phosphatase 119H, C-Reactive Protein, Quantitative 18.7H, Pro-B-Type Natriuretic Peptide 95114P, Total Protein 6.1L, Albumin 1.8L, Globulin 4.3, Albumin/Globulin Ratio 0.4L, Triglycerides Level 75, Cholesterol Level 115, LDL Cholesterol 75, HDL Cholesterol 24L, Cholesterol/HDL Ratio 4.8H, Vitamin B12 Level 1393H, Folate 30.3, Thyroid Stimulating Hormone (TSH) 1.241 Height (Feet): 6 Weight (Pounds): 170 General Appearance: other - on vent Cardiovascular: tachycardia Respiratory/Chest: decreased breath sounds Abdomen: distended Objective no other change FAITH SEARS Jul 06, 2017 12:34
--- NOTE | 2017-07-06 13:38 | Pulmonology Progress Note ---
Assessment/Plan Assessment/Plan 1. Respiratory failure. 2. Sepsis with shock. 3. Pneumonia. 4. Anuria. 5. Prostate cancer with suprapubic catheter. 6. Severe Alzheimer dementia. 7. Severe protein-calorie malnutrition. 8. Anemia. 9. Possible acute myocardial infarction. 10. Azotemia. 11. Hyperglycemia. off pressors u/o better after change of suprapubic cath [employer]+ [employer] vent support, not weanable yet, high spont RR cont rx prognosis guarded Subjective ROS Limited/Unobtainable: Yes Allergies: Coded Allergies: No Known Allergies (Verified , 09/26/12) Objective Last 24 Hour Vital Signs Date Time Temp Pulse Resp B/P (MAP) Pulse Ox O2 Delivery O2 Flow Rate FiO2 07/06/17 13:10 111 35 45 07/06/17 13:00 102 24 132/65 100 Mechanical Ventilator 45 07/06/17 12:00 99.3 105 24 99/76 100 Mechanical Ventilator 45 07/06/17 12:00 45 07/06/17 12:00 107 07/06/17 11:02 106 28 100 Mechanical Ventilator 45 07/06/17 11:00 103 23 111/62 100 Mechanical Ventilator 45 07/06/17 10:59 102 23 45 07/06/17 10:54 102 24 99 Mechanical Ventilator 07/06/17 10:00 100 29 101/71 100 Mechanical Ventilator 45 07/06/17 09:57 113 28 45 07/06/17 09:00 99.0 104 24 96/63 100 Mechanical Ventilator 45 07/06/17 08:00 99.7 101 25 85/47 100 Mechanical Ventilator 45 07/06/17 08:00 45 07/06/17 08:00 100 07/06/17 07:11 Mechanical Ventilator 07/06/17 07:10 Mechanical Ventilator 07/06/17 07:08 128 34 45 07/06/17 07:00 107 24 104/60 100 Mechanical Ventilator 45 07/06/17 06:00 112 24 89/49 99 Mechanical Ventilator 45 07/06/17 05:30 112 24 88/48 99 Mechanical Ventilator 45 07/06/17 05:00 118 26 101/56 99 Mechanical Ventilator 45 07/06/17 04:31 125 27 45 07/06/17 04:30 129 28 114/95 98 Mechanical Ventilator 45 07/06/17 04:00 45 07/06/17 04:00 98.2 126 27 117/77 97 Mechanical Ventilator 45 07/06/17 04:00 120 07/06/17 03:30 126 32 97 Mechanical Ventilator 07/06/17 03:30 108 26 115/74 100 Mechanical Ventilator 45 07/06/17 03:30 122 36 45 07/06/17 03:30 Mechanical Ventilator 07/06/17 03:00 101 23 95/55 100 Mechanical Ventilator 45 07/06/17 02:30 102 23 98/59 100 Mechanical Ventilator 45 07/06/17 02:00 100 23 96/55 100 Mechanical Ventilator 45 07/06/17 02:00 93/56 07/06/17 01:15 102 23 95/55 100 Mechanical Ventilator 45 07/06/17 01:01 100 20 45 07/06/17 01:00 87/59 07/06/17 01:00 105 26 87/59 100 Mechanical Ventilator 45 07/06/17 00:45 101 24 105/88 100 Mechanical Ventilator 45 07/06/17 00:30 105 25 94/57 100 Mechanical Ventilator 45 07/06/17 00:15 100 23 99/57 100 Mechanical Ventilator 45 07/06/17 00:00 101 20 100 Mechanical Ventilator 07/06/17 00:00 104 24 100 Mechanical Ventilator 45 07/06/17 00:00 98.3 100 23 89/52 100 Mechanical Ventilator 45 07/06/17 00:00 97 07/06/17 00:00 89/52 07/05/17 23:45 96 22 97/64 100 Mechanical Ventilator 45 07/05/17 23:30 101 24 45 07/05/17 23:30 94 22 99/64 100 Mechanical Ventilator 45 07/05/17 23:15 93 20 92/55 100 Mechanical Ventilator 45 07/05/17 23:00 98 21 90/50 100 Mechanical Ventilator 45 07/05/17 23:00 90/50 07/05/17 22:45 98 22 91/54 100 Mechanical Ventilator 45 07/05/17 22:30 100 22 99/59 100 Mechanical Ventilator 45 07/05/17 22:15 101 24 93/56 100 Mechanical Ventilator 45 07/05/17 22:00 102/57 07/05/17 22:00 102 23 102/57 100 Mechanical Ventilator 45 07/05/17 21:45 102 22 99/61 100 Mechanical Ventilator 45 07/05/17 21:30 106 26 116/64 99 Mechanical Ventilator 45 07/05/17 21:30 100 23 45 07/05/17 21:15 110 26 94/60 99 Mechanical Ventilator 45 07/05/17 21:00 103 26 94/60 100 Mechanical Ventilator 45 07/05/17 21:00 94/60 07/05/17 20:45 105 26 107/72 100 Mechanical Ventilator 45 07/05/17 20:30 105 22 102/68 100 Mechanical Ventilator 45 07/05/17 20:15 97 22 92/74 100 Mechanical Ventilator 45 07/05/17 20:00 45 07/05/17 20:00 92/74 07/05/17 20:00 92 07/05/17 20:00 98.1 96 24 92/74 100 Mechanical Ventilator 45 07/05/17 19:45 105 25 100 Mechanical Ventilator 45 07/05/17 19:45 92 23 99/70 100 Mechanical Ventilator 45 07/05/17 19:30 100 28 100 Mechanical Ventilator 07/05/17 19:30 91 23 99/70 100 Mechanical Ventilator 45 07/05/17 19:30 95 21 45 07/05/17 19:00 93 22 85/56 100 Mechanical Ventilator 45 07/05/17 19:00 89/57 07/05/17 18:30 102 23 107/68 100 Mechanical Ventilator 45 07/05/17 18:00 105 22 111/69 94 Mechanical Ventilator 45 07/05/17 17:30 104 24 91/57 94 Mechanical Ventilator 45 07/05/17 17:04 109 18 45 07/05/17 17:00 102 22 100/62 97 Mechanical Ventilator 45 07/05/17 16:30 106 22 100/65 94 Mechanical Ventilator 45 07/05/17 16:00 98.6 105 12 94/55 97 Mechanical Ventilator 45 07/05/17 16:00 45 07/05/17 16:00 133 07/05/17 15:30 103 12 88/59 100 Mechanical Ventilator 45 07/05/17 15:00 104 24 100 Mechanical Ventilator 45 07/05/17 15:00 86 20 85/52 100 Mechanical Ventilator 45 07/05/17 14:46 107 12 100 Mechanical Ventilator 45 07/05/17 14:46 45 07/05/17 14:40 97 19 45 07/05/17 14:30 102 20 100/57 100 Mechanical Ventilator 45 07/05/17 14:00 105 25 108/65 100 Mechanical Ventilator 45 Intake and Output 07/06/17 07/07/17 19:00 07:00 Intake Total 1034.958 ml Output Total 300 ml Balance 734.958 ml Intake Free Water 30 ml IV Total 624.958 ml Tube Feeding 330 ml Other 50 ml Output Urine Total 300 ml Objective G tube, suprapubic cath General Appearance: no acute distress, cachetic Respiratory/Chest: normal breath sounds Cardiovascular: normal rate Abdomen: soft, non tender Laboratory Tests 07/06/17 05:00: White Blood Count 15.9H, Red Blood Count 3.19L, Hemoglobin 10.2L, Hematocrit 28.9L, Mean Corpuscular Volume 91, Mean Corpuscular Hemoglobin 31.9H, Mean Corpuscular Hemoglobin Concent 35.2, Red Cell Distribution Width 13.1, Platelet Count 331, Mean Platelet Volume 9.2, Neutrophils (%) (Auto) 79.9H, Lymphocytes ( %) (Auto) 11.5L, Monocytes (%) (Auto) 6.5, Eosinophils (%) (Auto) 1.7, Basophils (%) (Auto) 0.4, Miscellaneous Test 2 [Pending], Sodium Level 137, Potassium Level 3.8, Chloride Level 104, Carbon Dioxide Level 27, Anion Gap 6, Blood Urea Nitrogen 17, Creatinine 0.7, Estimat Glomerular Filtration Rate , Glucose Level 145H, Lactic Acid Level 1.50, Uric Acid 2.2L, Calcium Level 8.4L, Phosphorus Level 2.5, Magnesium Level 1.7L, Ferritin 146, Total Bilirubin 0.3, Gamma Glutamyl Transpeptidase 58, Aspartate Amino Transf (AST/SGOT) 13L, Alanine Aminotransferase (ALT/SGPT) 18, Alkaline Phosphatase 119H, C-Reactive Protein, Quantitative 18.7H, Pro-B-Type Natriuretic Peptide 03532Q, Total Protein 6.1L, Albumin 1.8L, Globulin 4.3, Albumin/Globulin Ratio 0.4L, Triglycerides Level 75, Cholesterol Level 115, LDL Cholesterol 75, HDL Cholesterol 24L, Cholesterol/HDL Ratio 4.8H, Vitamin B12 Level 1393H, Folate 30.3, Thyroid Stimulating Hormone (TSH) 1.241 Current Medications Medications (Trade) Dose Ordered Sig/Matt Route PRN Reason Start Time Stop Time Status Last Admin Dose Admin Acetaminophen (Tylenol) 650 mg Q4H PRN GT Mild Pain (1-3) 07/02/17 19:00 08/01/17 18:59 07/05/17 09:12 Acetaminophen/ Hydrocodone Bitart ([place] 5/325) 1 tab QID PRN ORAL for moderate pain (4-6) 07/03/17 18:45 07/10/17 18:44 Albuterol/ Ipratropium (Albuterol/ Ipratropium) 3 ml Q4H HHN 07/02/17 19:00 07/07/17 18:59 07/06/17 10:56 Aspirin (ASA) 81 mg DAILY GT 07/03/17 09:00 08/02/17 08:59 07/06/17 08:54 Chlorhexidine Gluconate (Mari-Hex 2%) 1 applic DAILY@2000 TOPIC 07/03/17 20:00 08/02/17 19:59 07/05/17 20:58 Dextrose (Dextrose 50%) STAT PRN IV Hypoglycemia 07/02/17 19:00 08/01/17 18:59 Enoxaparin Sodium (Lovenox) 70 mg EVERY 12 HOURS SUBQ 07/03/17 09:00 08/02/17 08:59 07/06/17 09:32 Famotidine (Pepcid I.v.) 20 mg Q12HR IVP 07/05/17 23:00 08/04/17 22:59 07/06/17 08:54 Insulin Aspart (NovoLOG) Q6HR SUBQ 07/04/17 00:00 08/01/17 20:59 07/06/17 11:34 Insulin Detemir (Levemir) 8 units BID SUBQ 07/03/17 22:00 08/02/17 21:59 07/06/17 09:32 Lorazepam (Ativan 2mg/ml 1ml) 0.5 mg Q3HR PRN IV For Anxiety 07/03/17 18:30 07/10/17 18:29 07/05/17 14:36 Midodrine (Pro-Amatine) 10 mg THREE TIMES A DAY GT 07/03/17 09:00 08/02/17 08:59 07/06/17 13:15 Norepinephrine Bitartrate 4 mg/ Dextrose 250 ml @ 0 mls/hr Q24H IV 07/02/17 21:31 08/01/17 21:30 07/05/17 10:12 Ondansetron HCl (Zofran) 4 mg Q6H PRN GT Nausea & Vomiting 07/02/17 19:00 08/01/17 18:59 Pantoprazole (Protonix) 40 mg DAILY IV 07/03/17 09:00 08/02/17 08:59 07/06/17 08:54 Piperacillin Sod/ Tazobactam Sod 3.375 gm/Dextrose 55 ml @ 13.75 mls/ hr EVERY 8 HOURS IVPB 07/02/17 23:00 07/07/17 22:59 07/06/17 13:15 Sodium Chloride 1,000 ml @ 100 mls/hr Q10H IVLG 07/02/17 20:45 08/01/17 20:44 07/06/17 13:15 Vancomycin HCl (Vanco rx to dose) 1 ea DAILY PRN MISC RX TO DOSE PROTOCOL 07/02/17 19:00 08/01/17 18:59 Vancomycin HCl 1 gm/Dextrose 275 ml @ 183.708 mls/hr Q12HR@0000,1200 IVPB 07/03/17 12:00 07/08/17 11:59 07/06/17 11:33 Vitamin A/Vitamin D (A & D Oint) 1 applic EVERY 12 HOURS TOPIC 07/04/17 21:00 08/03/17 20:59 07/06/17 08:54 SABAS KNOTT Jul 06, 2017 13:38
--- NOTE | 2017-07-06 13:52 | General Progress Note ---
Assessment/Plan Assessment/Plan ASSESSMENT AND RECOMMENDATIONS: 1. Prostate cancer, controlled at this time. Current PSA of 5.6. With suprapubic catheter 2. Leukocytosis, secondary to underlying infection, infiltrates noted.ID following 5. Anemia, rule out gastrointestinal bleed. Ferritin wnl. H/H stable Subjective Allergies: Coded Allergies: No Known Allergies (Verified , 09/26/12) All Systems: reviewed and negative except above Subjective H/H stable. no events overnight Objective Last 24 Hour Vital Signs Date Time Temp Pulse Resp B/P (MAP) Pulse Ox O2 Delivery O2 Flow Rate FiO2 07/06/17 13:10 111 35 45 07/06/17 13:00 102 24 132/65 100 Mechanical Ventilator 45 07/06/17 12:00 99.3 105 24 99/76 100 Mechanical Ventilator 45 07/06/17 12:00 45 07/06/17 12:00 107 07/06/17 11:02 106 28 100 Mechanical Ventilator 45 07/06/17 11:00 103 23 111/62 100 Mechanical Ventilator 45 07/06/17 10:59 102 23 45 07/06/17 10:54 102 24 99 Mechanical Ventilator 07/06/17 10:00 100 29 101/71 100 Mechanical Ventilator 45 07/06/17 09:57 113 28 45 07/06/17 09:00 99.0 104 24 96/63 100 Mechanical Ventilator 45 07/06/17 08:00 99.7 101 25 85/47 100 Mechanical Ventilator 45 07/06/17 08:00 45 07/06/17 08:00 100 07/06/17 07:11 Mechanical Ventilator 07/06/17 07:10 Mechanical Ventilator 07/06/17 07:08 128 34 45 07/06/17 07:00 107 24 104/60 100 Mechanical Ventilator 45 07/06/17 06:00 112 24 89/49 99 Mechanical Ventilator 45 07/06/17 05:30 112 24 88/48 99 Mechanical Ventilator 45 07/06/17 05:00 118 26 101/56 99 Mechanical Ventilator 45 07/06/17 04:31 125 27 45 07/06/17 04:30 129 28 114/95 98 Mechanical Ventilator 45 07/06/17 04:00 45 07/06/17 04:00 98.2 126 27 117/77 97 Mechanical Ventilator 45 07/06/17 04:00 120 07/06/17 03:30 126 32 97 Mechanical Ventilator 07/06/17 03:30 108 26 115/74 100 Mechanical Ventilator 45 07/06/17 03:30 122 36 45 07/06/17 03:30 Mechanical Ventilator 07/06/17 03:00 101 23 95/55 100 Mechanical Ventilator 45 07/06/17 02:30 102 23 98/59 100 Mechanical Ventilator 45 07/06/17 02:00 100 23 96/55 100 Mechanical Ventilator 45 07/06/17 02:00 93/56 07/06/17 01:15 102 23 95/55 100 Mechanical Ventilator 45 07/06/17 01:01 100 20 45 07/06/17 01:00 87/59 07/06/17 01:00 105 26 87/59 100 Mechanical Ventilator 45 07/06/17 00:45 101 24 105/88 100 Mechanical Ventilator 45 07/06/17 00:30 105 25 94/57 100 Mechanical Ventilator 45 07/06/17 00:15 100 23 99/57 100 Mechanical Ventilator 45 07/06/17 00:00 101 20 100 Mechanical Ventilator 07/06/17 00:00 104 24 100 Mechanical Ventilator 45 07/06/17 00:00 98.3 100 23 89/52 100 Mechanical Ventilator 45 07/06/17 00:00 97 07/06/17 00:00 89/52 07/05/17 23:45 96 22 97/64 100 Mechanical Ventilator 45 07/05/17 23:30 101 24 45 07/05/17 23:30 94 22 99/64 100 Mechanical Ventilator 45 07/05/17 23:15 93 20 92/55 100 Mechanical Ventilator 45 07/05/17 23:00 98 21 90/50 100 Mechanical Ventilator 45 07/05/17 23:00 90/50 07/05/17 22:45 98 22 91/54 100 Mechanical Ventilator 45 07/05/17 22:30 100 22 99/59 100 Mechanical Ventilator 45 07/05/17 22:15 101 24 93/56 100 Mechanical Ventilator 45 07/05/17 22:00 102/57 07/05/17 22:00 102 23 102/57 100 Mechanical Ventilator 45 07/05/17 21:45 102 22 99/61 100 Mechanical Ventilator 45 07/05/17 21:30 106 26 116/64 99 Mechanical Ventilator 45 07/05/17 21:30 100 23 45 07/05/17 21:15 110 26 94/60 99 Mechanical Ventilator 45 07/05/17 21:00 103 26 94/60 100 Mechanical Ventilator 45 07/05/17 21:00 94/60 07/05/17 20:45 105 26 107/72 100 Mechanical Ventilator 45 07/05/17 20:30 105 22 102/68 100 Mechanical Ventilator 45 07/05/17 20:15 97 22 92/74 100 Mechanical Ventilator 45 07/05/17 20:00 45 07/05/17 20:00 92/74 07/05/17 20:00 92 07/05/17 20:00 98.1 96 24 92/74 100 Mechanical Ventilator 45 07/05/17 19:45 105 25 100 Mechanical Ventilator 45 07/05/17 19:45 92 23 99/70 100 Mechanical Ventilator 45 07/05/17 19:30 100 28 100 Mechanical Ventilator 07/05/17 19:30 91 23 99/70 100 Mechanical Ventilator 45 07/05/17 19:30 95 21 45 07/05/17 19:00 93 22 85/56 100 Mechanical Ventilator 45 07/05/17 19:00 89/57 07/05/17 18:30 102 23 107/68 100 Mechanical Ventilator 45 07/05/17 18:00 105 22 111/69 94 Mechanical Ventilator 45 07/05/17 17:30 104 24 91/57 94 Mechanical Ventilator 45 07/05/17 17:04 109 18 45 07/05/17 17:00 102 22 100/62 97 Mechanical Ventilator 45 07/05/17 16:30 106 22 100/65 94 Mechanical Ventilator 45 07/05/17 16:00 98.6 105 12 94/55 97 Mechanical Ventilator 45 07/05/17 16:00 45 07/05/17 16:00 133 07/05/17 15:30 103 12 88/59 100 Mechanical Ventilator 45 07/05/17 15:00 104 24 100 Mechanical Ventilator 45 07/05/17 15:00 86 20 85/52 100 Mechanical Ventilator 45 07/05/17 14:46 107 12 100 Mechanical Ventilator 45 07/05/17 14:46 45 07/05/17 14:40 97 19 45 07/05/17 14:30 102 20 100/57 100 Mechanical Ventilator 45 07/05/17 14:00 105 25 108/65 100 Mechanical Ventilator 45 Intake and Output 07/06/17 07/07/17 19:00 07:00 Intake Total 1126.250 ml Output Total 300 ml Balance 826.250 ml Intake Free Water 30 ml IV Total 716.250 ml Tube Feeding 330 ml Other 50 ml Output Urine Total 300 ml Laboratory Tests 07/06/17 05:00: White Blood Count 15.9H, Red Blood Count 3.19L, Hemoglobin 10.2L, Hematocrit 28.9L, Mean Corpuscular Volume 91, Mean Corpuscular Hemoglobin 31.9H, Mean Corpuscular Hemoglobin Concent 35.2, Red Cell Distribution Width 13.1, Platelet Count 331, Mean Platelet Volume 9.2, Neutrophils (%) (Auto) 79.9H, Lymphocytes ( %) (Auto) 11.5L, Monocytes (%) (Auto) 6.5, Eosinophils (%) (Auto) 1.7, Basophils (%) (Auto) 0.4, Miscellaneous Test 2 [Pending], Sodium Level 137, Potassium Level 3.8, Chloride Level 104, Carbon Dioxide Level 27, Anion Gap 6, Blood Urea Nitrogen 17, Creatinine 0.7, Estimat Glomerular Filtration Rate , Glucose Level 145H, Lactic Acid Level 1.50, Uric Acid 2.2L, Calcium Level 8.4L, Phosphorus Level 2.5, Magnesium Level 1.7L, Ferritin 146, Total Bilirubin 0.3, Gamma Glutamyl Transpeptidase 58, Aspartate Amino Transf (AST/SGOT) 13L, Alanine Aminotransferase (ALT/SGPT) 18, Alkaline Phosphatase 119H, C-Reactive Protein, Quantitative 18.7H, Pro-B-Type Natriuretic Peptide 43866J, Total Protein 6.1L, Albumin 1.8L, Globulin 4.3, Albumin/Globulin Ratio 0.4L, Triglycerides Level 75, Cholesterol Level 115, LDL Cholesterol 75, HDL Cholesterol 24L, Cholesterol/HDL Ratio 4.8H, Vitamin B12 Level 1393H, Folate 30.3, Thyroid Stimulating Hormone (TSH) 1.241 Height (Feet): 6 Weight (Pounds): 170 General Appearance: no apparent distress EENT: normal ENT inspection Neck: non-tender, normal alignment Cardiovascular: normal peripheral pulses 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
--- NOTE | 2017-07-06 13:57 | Infectious Diseases Prog Note ---
Assessment/Plan Assessment/Plan A; Septic Shock Complicated UTI with MRSA & pseudomonas Pneumonia CoANS in blood likely contamination Acute respiratory failure MRSA colonization P; Continue Vancomycin & Zosyn Subjective ROS Limited/Unobtainable: Yes Neurologic: Reports: confusion, other - on restraint Allergies: Coded Allergies: No Known Allergies (Verified , 09/26/12) Objective Vital Signs Last 24 Hour Vital Signs Date Time Temp Pulse Resp B/P (MAP) Pulse Ox O2 Delivery O2 Flow Rate FiO2 07/06/17 13:10 111 35 45 07/06/17 13:00 102 24 132/65 100 Mechanical Ventilator 45 07/06/17 12:00 99.3 105 24 99/76 100 Mechanical Ventilator 45 07/06/17 12:00 45 07/06/17 12:00 107 07/06/17 11:02 106 28 100 Mechanical Ventilator 45 07/06/17 11:00 103 23 111/62 100 Mechanical Ventilator 45 07/06/17 10:59 102 23 45 07/06/17 10:54 102 24 99 Mechanical Ventilator 07/06/17 10:00 100 29 101/71 100 Mechanical Ventilator 45 07/06/17 09:57 113 28 45 07/06/17 09:00 99.0 104 24 96/63 100 Mechanical Ventilator 45 07/06/17 08:00 99.7 101 25 85/47 100 Mechanical Ventilator 45 07/06/17 08:00 45 07/06/17 08:00 100 07/06/17 07:11 Mechanical Ventilator 07/06/17 07:10 Mechanical Ventilator 07/06/17 07:08 128 34 45 07/06/17 07:00 107 24 104/60 100 Mechanical Ventilator 45 07/06/17 06:00 112 24 89/49 99 Mechanical Ventilator 45 07/06/17 05:30 112 24 88/48 99 Mechanical Ventilator 45 07/06/17 05:00 118 26 101/56 99 Mechanical Ventilator 45 07/06/17 04:31 125 27 45 07/06/17 04:30 129 28 114/95 98 Mechanical Ventilator 45 07/06/17 04:00 45 07/06/17 04:00 98.2 126 27 117/77 97 Mechanical Ventilator 45 07/06/17 04:00 120 07/06/17 03:30 126 32 97 Mechanical Ventilator 07/06/17 03:30 108 26 115/74 100 Mechanical Ventilator 45 07/06/17 03:30 122 36 45 07/06/17 03:30 Mechanical Ventilator 07/06/17 03:00 101 23 95/55 100 Mechanical Ventilator 45 07/06/17 02:30 102 23 98/59 100 Mechanical Ventilator 45 07/06/17 02:00 100 23 96/55 100 Mechanical Ventilator 45 07/06/17 02:00 93/56 07/06/17 01:15 102 23 95/55 100 Mechanical Ventilator 45 07/06/17 01:01 100 20 45 07/06/17 01:00 87/59 07/06/17 01:00 105 26 87/59 100 Mechanical Ventilator 45 07/06/17 00:45 101 24 105/88 100 Mechanical Ventilator 45 07/06/17 00:30 105 25 94/57 100 Mechanical Ventilator 45 07/06/17 00:15 100 23 99/57 100 Mechanical Ventilator 45 07/06/17 00:00 101 20 100 Mechanical Ventilator 07/06/17 00:00 104 24 100 Mechanical Ventilator 45 07/06/17 00:00 98.3 100 23 89/52 100 Mechanical Ventilator 45 07/06/17 00:00 97 07/06/17 00:00 89/52 07/05/17 23:45 96 22 97/64 100 Mechanical Ventilator 45 07/05/17 23:30 101 24 45 07/05/17 23:30 94 22 99/64 100 Mechanical Ventilator 45 07/05/17 23:15 93 20 92/55 100 Mechanical Ventilator 45 07/05/17 23:00 98 21 90/50 100 Mechanical Ventilator 45 07/05/17 23:00 90/50 07/05/17 22:45 98 22 91/54 100 Mechanical Ventilator 45 07/05/17 22:30 100 22 99/59 100 Mechanical Ventilator 45 07/05/17 22:15 101 24 93/56 100 Mechanical Ventilator 45 07/05/17 22:00 102/57 07/05/17 22:00 102 23 102/57 100 Mechanical Ventilator 45 07/05/17 21:45 102 22 99/61 100 Mechanical Ventilator 45 07/05/17 21:30 106 26 116/64 99 Mechanical Ventilator 45 07/05/17 21:30 100 23 45 07/05/17 21:15 110 26 94/60 99 Mechanical Ventilator 45 07/05/17 21:00 103 26 94/60 100 Mechanical Ventilator 45 07/05/17 21:00 94/60 07/05/17 20:45 105 26 107/72 100 Mechanical Ventilator 45 07/05/17 20:30 105 22 102/68 100 Mechanical Ventilator 45 07/05/17 20:15 97 22 92/74 100 Mechanical Ventilator 45 07/05/17 20:00 45 07/05/17 20:00 92/74 07/05/17 20:00 92 07/05/17 20:00 98.1 96 24 92/74 100 Mechanical Ventilator 45 07/05/17 19:45 105 25 100 Mechanical Ventilator 45 07/05/17 19:45 92 23 99/70 100 Mechanical Ventilator 45 07/05/17 19:30 100 28 100 Mechanical Ventilator 07/05/17 19:30 91 23 99/70 100 Mechanical Ventilator 45 07/05/17 19:30 95 21 45 07/05/17 19:00 93 22 85/56 100 Mechanical Ventilator 45 07/05/17 19:00 89/57 07/05/17 18:30 102 23 107/68 100 Mechanical Ventilator 45 07/05/17 18:00 105 22 111/69 94 Mechanical Ventilator 45 07/05/17 17:30 104 24 91/57 94 Mechanical Ventilator 45 07/05/17 17:04 109 18 45 07/05/17 17:00 102 22 100/62 97 Mechanical Ventilator 45 07/05/17 16:30 106 22 100/65 94 Mechanical Ventilator 45 07/05/17 16:00 98.6 105 12 94/55 97 Mechanical Ventilator 45 07/05/17 16:00 45 07/05/17 16:00 133 07/05/17 15:30 103 12 88/59 100 Mechanical Ventilator 45 07/05/17 15:00 104 24 100 Mechanical Ventilator 45 07/05/17 15:00 86 20 85/52 100 Mechanical Ventilator 45 07/05/17 14:46 107 12 100 Mechanical Ventilator 45 07/05/17 14:46 45 07/05/17 14:40 97 19 45 07/05/17 14:30 102 20 100/57 100 Mechanical Ventilator 45 07/05/17 14:00 105 25 108/65 100 Mechanical Ventilator 45 Height (Feet): 6 Weight (Pounds): 170 HEENT: other - orally intubated Respiratory/Chest: lungs clear, other - on ventilator Cardiovascular: tachycardia Abdomen: soft, non tender, other - GT feeding, suprapubic catheter Extremities: no edema Neurologic/Psychiatric: unresponsiveness Laboratory Tests Test 07/06/17 05:00 White Blood Count 15.9 K/UL (4.8-10.8) H Red Blood Count 3.19 M/UL (4.70-6.10) L Hemoglobin 10.2 G/DL (14.2-18.0) L Hematocrit 28.9 % (42.0-52.0) L Mean Corpuscular Volume 91 FL (80-99) Mean Corpuscular Hemoglobin 31.9 PG (27.0-31.0) H Mean Corpuscular Hemoglobin Concent 35.2 G/DL (32.0-36.0) Red Cell Distribution Width 13.1 % (11.6-14.8) Platelet Count 331 K/UL (150-450) Mean Platelet Volume 9.2 FL (6.5-10.1) Neutrophils (%) (Auto) 79.9 % (45.0-75.0) H Lymphocytes (%) (Auto) 11.5 % (20.0-45.0) L Monocytes (%) (Auto) 6.5 % (1.0-10.0) Eosinophils (%) (Auto) 1.7 % (0.0-3.0) Basophils (%) (Auto) 0.4 % (0.0-2.0) Miscellaneous Test 2 Pending Sodium Level 137 MMOL/L (136-145) Potassium Level 3.8 MMOL/L (3.5-5.1) Chloride Level 104 MMOL/L (98-107) Carbon Dioxide Level 27 MMOL/L (21-32) Anion Gap 6 mmol/L (5-15) Blood Urea Nitrogen 17 mg/dL (7-18) Creatinine 0.7 MG/DL (0.55-1.30) Estimat Glomerular Filtration Rate mL/min (>60) Glucose Level 145 MG/DL (74-106) H Lactic Acid Level 1.50 mmol/L (0.66-2.22) Uric Acid 2.2 MG/DL (2.6-7.2) L Calcium Level 8.4 MG/DL (8.5-10.1) L Phosphorus Level 2.5 MG/DL (2.5-4.9) Magnesium Level 1.7 MG/DL (1.8-2.4) L Ferritin 146 NG/ML (8-388) Total Bilirubin 0.3 MG/DL (0.2-1.0) Gamma Glutamyl Transpeptidase 58 U/L (5-85) Aspartate Amino Transf (AST/SGOT) 13 U/L (15-37) L Alanine Aminotransferase (ALT/SGPT) 18 U/L (12-78) Alkaline Phosphatase 119 U/L (46-116) H C-Reactive Protein, Quantitative 18.7 mg/dL (0.00-0.90) H Pro-B-Type Natriuretic Peptide 66855 pg/mL (0-125) H Total Protein 6.1 G/DL (6.4-8.2) L Albumin 1.8 G/DL (3.4-5.0) L Globulin 4.3 g/dL Albumin/Globulin Ratio 0.4 (1.0-2.7) L Triglycerides Level 75 MG/DL (30-150) Cholesterol Level 115 MG/DL (< 200) LDL Cholesterol 75 mg/dL (<100) HDL Cholesterol 24 MG/DL (40-60) L Cholesterol/HDL Ratio 4.8 (3.3-4.4) H Vitamin B12 Level 1393 PG/ML (193-986) H Folate 30.3 NG/ML (8.6-58.9) Thyroid Stimulating Hormone (TSH) 1.241 uiU/mL (0.358-3.740) Current Medications Medications (Trade) Dose Ordered Sig/Matt Route PRN Reason Start Time Stop Time Status Last Admin Dose Admin Acetaminophen (Tylenol) 650 mg Q4H PRN GT Mild Pain (1-3) 07/02/17 19:00 08/01/17 18:59 07/05/17 09:12 Acetaminophen/ Hydrocodone Bitart ([place] 5/325) 1 tab QID PRN ORAL for moderate pain (4-6) 07/03/17 18:45 07/10/17 18:44 Albuterol/ Ipratropium (Albuterol/ Ipratropium) 3 ml Q4H HHN 07/02/17 19:00 07/07/17 18:59 07/06/17 10:56 Aspirin (ASA) 81 mg DAILY GT 07/03/17 09:00 08/02/17 08:59 07/06/17 08:54 Chlorhexidine Gluconate (Mari-Hex 2%) 1 applic DAILY@2000 TOPIC 07/03/17 20:00 08/02/17 19:59 07/05/17 20:58 Dextrose (Dextrose 50%) STAT PRN IV Hypoglycemia 07/02/17 19:00 08/01/17 18:59 Enoxaparin Sodium (Lovenox) 70 mg EVERY 12 HOURS SUBQ 07/03/17 09:00 08/02/17 08:59 07/06/17 09:32 Famotidine (Pepcid I.v.) 20 mg Q12HR IVP 07/05/17 23:00 08/04/17 22:59 07/06/17 08:54 Insulin Aspart (NovoLOG) Q6HR SUBQ 07/04/17 00:00 08/01/17 20:59 07/06/17 11:34 Insulin Detemir (Levemir) 8 units BID SUBQ 07/03/17 22:00 08/02/17 21:59 07/06/17 09:32 Lorazepam (Ativan 2mg/ml 1ml) 0.5 mg Q3HR PRN IV For Anxiety 07/03/17 18:30 07/10/17 18:29 07/05/17 14:36 Midodrine (Pro-Amatine) 10 mg THREE TIMES A DAY GT 07/03/17 09:00 08/02/17 08:59 07/06/17 13:15 Norepinephrine Bitartrate 4 mg/ Dextrose 250 ml @ 0 mls/hr Q24H IV 07/02/17 21:31 08/01/17 21:30 07/05/17 10:12 Ondansetron HCl (Zofran) 4 mg Q6H PRN GT Nausea & Vomiting 07/02/17 19:00 08/01/17 18:59 Pantoprazole (Protonix) 40 mg DAILY IV 07/03/17 09:00 08/02/17 08:59 07/06/17 08:54 Piperacillin Sod/ Tazobactam Sod 3.375 gm/Dextrose 55 ml @ 13.75 mls/ hr EVERY 8 HOURS IVPB 07/02/17 23:00 07/07/17 22:59 07/06/17 13:15 Sodium Chloride 1,000 ml @ 100 mls/hr Q10H IVLG 07/02/17 20:45 08/01/17 20:44 07/06/17 13:15 Vancomycin HCl (Vanco rx to dose) 1 ea DAILY PRN MISC RX TO DOSE PROTOCOL 07/02/17 19:00 08/01/17 18:59 Vancomycin HCl 1 gm/Dextrose 275 ml @ 183.708 mls/hr Q12HR@0000,1200 IVPB 07/03/17 12:00 07/08/17 11:59 07/06/17 11:33 Vitamin A/Vitamin D (A & D Oint) 1 applic EVERY 12 HOURS TOPIC 07/04/17 21:00 08/03/17 20:59 07/06/17 08:54 BREANNE CERVANTES Jul 06, 2017 13:57
[2017-07-06] MEDS ORDERED: Tubing IV Secondary IV ONE (16:36)
[2017-07-06] MEDS: Dyna-Hex 2% Top Sol 2oz TOPIC SCH (19:41)
--- NOTE | 2017-07-06 19:53 | General Progress Note ---
Assessment/Plan Assessment/Plan Assessment - OBS - dysphagia / GT - prostate CA - anemia - s/p Suprapubic catheter - DM - Leukocytosis Recommendations - GT feeding - Elevate HOB - monitor H&H - PPI - abx Subjective Allergies: Coded Allergies: No Known Allergies (Verified , 09/26/12) Subjective above noted d/w RN tolerating feeds non communicative Objective Last 24 Hour Vital Signs Date Time Temp Pulse Resp B/P (MAP) Pulse Ox O2 Delivery O2 Flow Rate FiO2 07/06/17 19:25 100 20 100 Mechanical Ventilator 45 07/06/17 19:20 95 31 100 Mechanical Ventilator 07/06/17 19:12 97 24 45 07/06/17 19:00 98 23 110/76 100 Mechanical Ventilator 45 07/06/17 18:00 109 26 113/70 100 Mechanical Ventilator 45 07/06/17 17:00 110 26 100/88 100 Mechanical Ventilator 45 07/06/17 16:51 113 24 45 07/06/17 16:00 45 07/06/17 16:00 98.9 109 23 130/63 100 Mechanical Ventilator 45 07/06/17 16:00 117 07/06/17 15:19 104 16 100 Mechanical Ventilator 45 07/06/17 15:18 109 22 45 07/06/17 15:10 109 22 99 Mechanical Ventilator 07/06/17 15:00 107 27 94/52 100 Mechanical Ventilator 45 07/06/17 14:00 98.7 99 24 112/69 100 Mechanical Ventilator 45 07/06/17 13:10 111 35 45 07/06/17 13:00 102 24 132/65 100 Mechanical Ventilator 45 07/06/17 12:00 99.3 105 24 99/76 100 Mechanical Ventilator 45 07/06/17 12:00 45 07/06/17 12:00 107 07/06/17 11:02 106 28 100 Mechanical Ventilator 45 07/06/17 11:00 103 23 111/62 100 Mechanical Ventilator 45 07/06/17 10:59 102 23 45 07/06/17 10:54 102 24 99 Mechanical Ventilator 07/06/17 10:00 100 29 101/71 100 Mechanical Ventilator 45 07/06/17 09:57 113 28 45 07/06/17 09:00 99.0 104 24 96/63 100 Mechanical Ventilator 45 07/06/17 08:00 99.7 101 25 85/47 100 Mechanical Ventilator 45 07/06/17 08:00 45 07/06/17 08:00 100 07/06/17 07:11 Mechanical Ventilator 07/06/17 07:10 Mechanical Ventilator 07/06/17 07:08 128 34 45 07/06/17 07:00 107 24 104/60 100 Mechanical Ventilator 45 07/06/17 06:00 112 24 89/49 99 Mechanical Ventilator 45 07/06/17 05:30 112 24 88/48 99 Mechanical Ventilator 45 07/06/17 05:00 118 26 101/56 99 Mechanical Ventilator 45 07/06/17 04:31 125 27 45 07/06/17 04:30 129 28 114/95 98 Mechanical Ventilator 45 07/06/17 04:00 45 07/06/17 04:00 98.2 126 27 117/77 97 Mechanical Ventilator 45 07/06/17 04:00 120 07/06/17 03:30 126 32 97 Mechanical Ventilator 07/06/17 03:30 108 26 115/74 100 Mechanical Ventilator 45 07/06/17 03:30 122 36 45 07/06/17 03:30 Mechanical Ventilator 07/06/17 03:00 101 23 95/55 100 Mechanical Ventilator 45 07/06/17 02:30 102 23 98/59 100 Mechanical Ventilator 45 07/06/17 02:00 100 23 96/55 100 Mechanical Ventilator 45 07/06/17 02:00 93/56 07/06/17 01:15 102 23 95/55 100 Mechanical Ventilator 45 07/06/17 01:01 100 20 45 07/06/17 01:00 87/59 07/06/17 01:00 105 26 87/59 100 Mechanical Ventilator 45 07/06/17 00:45 101 24 105/88 100 Mechanical Ventilator 45 07/06/17 00:30 105 25 94/57 100 Mechanical Ventilator 45 07/06/17 00:15 100 23 99/57 100 Mechanical Ventilator 45 07/06/17 00:00 101 20 100 Mechanical Ventilator 07/06/17 00:00 104 24 100 Mechanical Ventilator 45 07/06/17 00:00 98.3 100 23 89/52 100 Mechanical Ventilator 45 07/06/17 00:00 97 07/06/17 00:00 89/52 07/05/17 23:45 96 22 97/64 100 Mechanical Ventilator 45 07/05/17 23:30 101 24 45 07/05/17 23:30 94 22 99/64 100 Mechanical Ventilator 45 07/05/17 23:15 93 20 92/55 100 Mechanical Ventilator 45 07/05/17 23:00 98 21 90/50 100 Mechanical Ventilator 45 07/05/17 23:00 90/50 07/05/17 22:45 98 22 91/54 100 Mechanical Ventilator 45 07/05/17 22:30 100 22 99/59 100 Mechanical Ventilator 45 07/05/17 22:15 101 24 93/56 100 Mechanical Ventilator 45 07/05/17 22:00 102/57 07/05/17 22:00 102 23 102/57 100 Mechanical Ventilator 45 07/05/17 21:45 102 22 99/61 100 Mechanical Ventilator 45 07/05/17 21:30 106 26 116/64 99 Mechanical Ventilator 45 07/05/17 21:30 100 23 45 07/05/17 21:15 110 26 94/60 99 Mechanical Ventilator 45 07/05/17 21:00 103 26 94/60 100 Mechanical Ventilator 45 07/05/17 21:00 94/60 07/05/17 20:45 105 26 107/72 100 Mechanical Ventilator 45 07/05/17 20:30 105 22 102/68 100 Mechanical Ventilator 45 07/05/17 20:15 97 22 92/74 100 Mechanical Ventilator 45 07/05/17 20:00 45 07/05/17 20:00 92/74 07/05/17 20:00 92 07/05/17 20:00 98.1 96 24 92/74 100 Mechanical Ventilator 45 Intake and Output 07/06/17 07/07/17 19:00 07:00 Intake Total 2146.250 ml Output Total 580 ml Balance 1566.250 ml Intake Free Water 30 ml IV Total 1346.250 ml Tube Feeding 660 ml Other 110 ml Output Urine Total 580 ml # Bowel Movements 2 Laboratory Tests 07/06/17 05:00: White Blood Count 15.9H, Red Blood Count 3.19L, Hemoglobin 10.2L, Hematocrit 28.9L, Mean Corpuscular Volume 91, Mean Corpuscular Hemoglobin 31.9H, Mean Corpuscular Hemoglobin Concent 35.2, Red Cell Distribution Width 13.1, Platelet Count 331, Mean Platelet Volume 9.2, Neutrophils (%) (Auto) 79.9H, Lymphocytes ( %) (Auto) 11.5L, Monocytes (%) (Auto) 6.5, Eosinophils (%) (Auto) 1.7, Basophils (%) (Auto) 0.4, Miscellaneous Test 2 28.3, Sodium Level 137, Potassium Level 3.8, Chloride Level 104, Carbon Dioxide Level 27, Anion Gap 6, Blood Urea Nitrogen 17, Creatinine 0.7, Estimat Glomerular Filtration Rate , Glucose Level 145H, Lactic Acid Level 1.50, Uric Acid 2.2L, Calcium Level 8.4L, Phosphorus Level 2.5, Magnesium Level 1.7L, Ferritin 146, Total Bilirubin 0.3, Gamma Glutamyl Transpeptidase 58, Aspartate Amino Transf (AST/SGOT) 13L, Alanine Aminotransferase (ALT/SGPT) 18, Alkaline Phosphatase 119H, C-Reactive Protein, Quantitative 18.7H, Pro-B-Type Natriuretic Peptide 08373H, Total Protein 6.1L, Albumin 1.8L, Globulin 4.3, Albumin/Globulin Ratio 0.4L, Triglycerides Level 75, Cholesterol Level 115, LDL Cholesterol 75, HDL Cholesterol 24L, Cholesterol/HDL Ratio 4.8H, Vitamin B12 Level 1393H, Folate 30.3, Thyroid Stimulating Hormone (TSH) 1.241 Height (Feet): 6 Weight (Pounds): 170 Objective Eldely WM NCAT, (+) ETT supple, (+ ) IJ catheter CTA RR soft flat, (+) GT, (+) SP catheter no edema OBS CURTIS GARCIA Jul 06, 2017 19:53
--- NOTE | 2017-07-06 20:45 | General Progress Note ---
Assessment/Plan Problem List: (1) COPD (chronic obstructive pulmonary disease) ICD Codes: J44.9 - Chronic obstructive pulmonary disease SNOMED: 76766403 (2) Suprapubic catheter ICD Codes: Z93.59 - Other cystostomy status SNOMED: 967965041, 249853650 (3) Catheter-associated urinary tract infection ICD Codes: T83.511A - Infection and inflammatory reaction due to indwelling urethral catheter, initial encounter; N39.0 - Urinary tract infection, site not specified SNOMED: 560076096 (4) Anemia ICD Codes: D64.9 - Anemia, unspecified SNOMED: 636319852 (5) Dementia ICD Codes: F03.90 - Unspecified dementia without behavioral disturbance SNOMED: 46397989 (6) Seizure ICD Codes: R56.9 - Unspecified convulsions SNOMED: 30192109 (7) Prostate cancer ICD Codes: C61 - Malignant neoplasm of prostate SNOMED: 343747316 (8) COPD (chronic obstructive pulmonary disease) ICD Codes: J44.9 - Chronic obstructive pulmonary disease, unspecified SNOMED: 63276323 (9) Respiratory distress ICD Codes: R06.03 - Acute respiratory distress SNOMED: 834499572 (10) Sepsis ICD Codes: A41.9 - Sepsis, unspecified organism SNOMED: 93781942 Assessment/Plan resp failure intubated lyte abnormaility copd asp pna dehyration sepsis lyte abnormailty afebrile reviewed chart and labs Subjective ROS Limited/Unobtainable: Yes Allergies: Coded Allergies: No Known Allergies (Verified , 09/26/12) Objective Last 24 Hour Vital Signs Date Time Temp Pulse Resp B/P (MAP) Pulse Ox O2 Delivery O2 Flow Rate FiO2 07/06/17 19:25 100 20 100 Mechanical Ventilator 45 07/06/17 19:20 95 31 100 Mechanical Ventilator 07/06/17 19:12 97 24 45 07/06/17 19:00 98 23 110/76 100 Mechanical Ventilator 45 07/06/17 18:00 109 26 113/70 100 Mechanical Ventilator 45 07/06/17 17:00 110 26 100/88 100 Mechanical Ventilator 45 07/06/17 16:51 113 24 45 07/06/17 16:00 45 07/06/17 16:00 98.9 109 23 130/63 100 Mechanical Ventilator 45 07/06/17 16:00 117 07/06/17 15:19 104 16 100 Mechanical Ventilator 45 07/06/17 15:18 109 22 45 07/06/17 15:10 109 22 99 Mechanical Ventilator 07/06/17 15:00 107 27 94/52 100 Mechanical Ventilator 45 07/06/17 14:00 98.7 99 24 112/69 100 Mechanical Ventilator 45 07/06/17 13:10 111 35 45 07/06/17 13:00 102 24 132/65 100 Mechanical Ventilator 45 07/06/17 12:00 99.3 105 24 99/76 100 Mechanical Ventilator 45 07/06/17 12:00 45 07/06/17 12:00 107 07/06/17 11:02 106 28 100 Mechanical Ventilator 45 07/06/17 11:00 103 23 111/62 100 Mechanical Ventilator 45 07/06/17 10:59 102 23 45 07/06/17 10:54 102 24 99 Mechanical Ventilator 07/06/17 10:00 100 29 101/71 100 Mechanical Ventilator 45 07/06/17 09:57 113 28 45 07/06/17 09:00 99.0 104 24 96/63 100 Mechanical Ventilator 45 07/06/17 08:00 99.7 101 25 85/47 100 Mechanical Ventilator 45 07/06/17 08:00 45 07/06/17 08:00 100 07/06/17 07:11 Mechanical Ventilator 07/06/17 07:10 Mechanical Ventilator 07/06/17 07:08 128 34 45 07/06/17 07:00 107 24 104/60 100 Mechanical Ventilator 45 07/06/17 06:00 112 24 89/49 99 Mechanical Ventilator 45 07/06/17 05:30 112 24 88/48 99 Mechanical Ventilator 45 07/06/17 05:00 118 26 101/56 99 Mechanical Ventilator 45 07/06/17 04:31 125 27 45 07/06/17 04:30 129 28 114/95 98 Mechanical Ventilator 45 07/06/17 04:00 45 07/06/17 04:00 98.2 126 27 117/77 97 Mechanical Ventilator 45 07/06/17 04:00 120 07/06/17 03:30 126 32 97 Mechanical Ventilator 07/06/17 03:30 108 26 115/74 100 Mechanical Ventilator 45 07/06/17 03:30 122 36 45 07/06/17 03:30 Mechanical Ventilator 07/06/17 03:00 101 23 95/55 100 Mechanical Ventilator 45 07/06/17 02:30 102 23 98/59 100 Mechanical Ventilator 45 07/06/17 02:00 100 23 96/55 100 Mechanical Ventilator 45 07/06/17 02:00 93/56 07/06/17 01:15 102 23 95/55 100 Mechanical Ventilator 45 07/06/17 01:01 100 20 45 07/06/17 01:00 87/59 07/06/17 01:00 105 26 87/59 100 Mechanical Ventilator 45 07/06/17 00:45 101 24 105/88 100 Mechanical Ventilator 45 07/06/17 00:30 105 25 94/57 100 Mechanical Ventilator 45 07/06/17 00:15 100 23 99/57 100 Mechanical Ventilator 45 07/06/17 00:00 101 20 100 Mechanical Ventilator 07/06/17 00:00 104 24 100 Mechanical Ventilator 45 07/06/17 00:00 98.3 100 23 89/52 100 Mechanical Ventilator 45 07/06/17 00:00 97 07/06/17 00:00 89/52 07/05/17 23:45 96 22 97/64 100 Mechanical Ventilator 45 07/05/17 23:30 101 24 45 07/05/17 23:30 94 22 99/64 100 Mechanical Ventilator 45 07/05/17 23:15 93 20 92/55 100 Mechanical Ventilator 45 07/05/17 23:00 98 21 90/50 100 Mechanical Ventilator 45 07/05/17 23:00 90/50 07/05/17 22:45 98 22 91/54 100 Mechanical Ventilator 45 07/05/17 22:30 100 22 99/59 100 Mechanical Ventilator 45 07/05/17 22:15 101 24 93/56 100 Mechanical Ventilator 45 07/05/17 22:00 102/57 07/05/17 22:00 102 23 102/57 100 Mechanical Ventilator 45 07/05/17 21:45 102 22 99/61 100 Mechanical Ventilator 45 07/05/17 21:30 106 26 116/64 99 Mechanical Ventilator 45 07/05/17 21:30 100 23 45 07/05/17 21:15 110 26 94/60 99 Mechanical Ventilator 45 07/05/17 21:00 103 26 94/60 100 Mechanical Ventilator 45 07/05/17 21:00 94/60 07/05/17 20:45 105 26 107/72 100 Mechanical Ventilator 45 Intake and Output 07/06/17 07/07/17 19:00 07:00 Intake Total 2146.250 ml Output Total 580 ml Balance 1566.250 ml Intake Free Water 30 ml IV Total 1346.250 ml Tube Feeding 660 ml Other 110 ml Output Urine Total 580 ml # Bowel Movements 2 Laboratory Tests 07/06/17 05:00: White Blood Count 15.9H, Red Blood Count 3.19L, Hemoglobin 10.2L, Hematocrit 28.9L, Mean Corpuscular Volume 91, Mean Corpuscular Hemoglobin 31.9H, Mean Corpuscular Hemoglobin Concent 35.2, Red Cell Distribution Width 13.1, Platelet Count 331, Mean Platelet Volume 9.2, Neutrophils (%) (Auto) 79.9H, Lymphocytes ( %) (Auto) 11.5L, Monocytes (%) (Auto) 6.5, Eosinophils (%) (Auto) 1.7, Basophils (%) (Auto) 0.4, Miscellaneous Test 2 28.3, Sodium Level 137, Potassium Level 3.8, Chloride Level 104, Carbon Dioxide Level 27, Anion Gap 6, Blood Urea Nitrogen 17, Creatinine 0.7, Estimat Glomerular Filtration Rate , Glucose Level 145H, Lactic Acid Level 1.50, Uric Acid 2.2L, Calcium Level 8.4L, Phosphorus Level 2.5, Magnesium Level 1.7L, Ferritin 146, Total Bilirubin 0.3, Gamma Glutamyl Transpeptidase 58, Aspartate Amino Transf (AST/SGOT) 13L, Alanine Aminotransferase (ALT/SGPT) 18, Alkaline Phosphatase 119H, C-Reactive Protein, Quantitative 18.7H, Pro-B-Type Natriuretic Peptide 16583A, Total Protein 6.1L, Albumin 1.8L, Globulin 4.3, Albumin/Globulin Ratio 0.4L, Triglycerides Level 75, Cholesterol Level 115, LDL Cholesterol 75, HDL Cholesterol 24L, Cholesterol/HDL Ratio 4.8H, Vitamin B12 Level 1393H, Folate 30.3, Thyroid Stimulating Hormone (TSH) 1.241 Height (Feet): 6 Weight (Pounds): 170 Cardiovascular: normal rate Respiratory/Chest: lungs clear Sary Oakes MD Jul 06, 2017 20:45
[2017-07-06 21:21] LABS: ALANINE AMINOTRANSFERASE 11 U/L (12-78); ALBUMIN/GLOBULIN RATIO 0.4 (1.0-2.7); ANION GAP 6 mmol/L (5-15); ASPARTATE AMINO TRANSFERASE 11 U/L (15-37); CALCIUM 8.2 MG/DL (8.5-10.1); CARBON DIOXIDE 26 MMOL/L (21-32); CHLORIDE 105 MMOL/L (98-107); CREATININE 0.7 MG/DL (0.55-1.30); POTASSIUM 3.6 MMOL/L (3.5-5.1); SODIUM 137 MMOL/L (136-145); TOTAL PROTEIN 5.7 G/DL (6.4-8.2)
[2017-07-07] VITALS (24 sets, daily range): BP systolic 89–139; BP diastolic 42–92
[2017-07-07] MEDS: Albuterol/Ipratropium 3ml neb HHN SCH ×4 (03:44→15:08)
[2017-07-07 05:22] LABS: BASOPHILS % (AUTO) 0.8 % (0.0-2.0); EOSINOPHILS % (AUTO) 3.7 % (0.0-3.0); LYMPHOCYTES % (AUTO) 11.7 % (20.0-45.0); MEAN CORPUSCULAR HEMOGLOBIN 30.4 PG (27.0-31.0); MEAN CORPUSCULAR HGB CONC 33.5 G/DL (32.0-36.0); MEAN CORPUSCULAR VOLUME 91 FL (80-99); MEAN PLATELET VOLUME 7.7 FL (6.5-10.1); MONOCYTES % (AUTO) 8.1 % (1.0-10.0); NEUTROPHILS % (AUTO) 75.9 % (45.0-75.0); PLATELET COUNT 263 K/UL (150-450); RED BLOOD COUNT 2.91 M/UL (4.70-6.10); WHITE BLOOD COUNT 10.2 K/UL (4.8-10.8)
[2017-07-07] MEDS: Zoysn 3.37gm in D5W 55ml IVPB SCH ×3 (06:00→21:43)
[2017-07-07] MEDS: NovoLOG Insulin Flexpen SUBQ SCH ×3 (06:03→18:17)
[2017-07-07] MEDS: Aspirin Baby 81mg GT SCH (09:50)
[2017-07-07] MEDS: Midodrine 10mg tab GT SCH ×3 (09:50→18:07)
[2017-07-07] MEDS: Pantoprazole Inj IV SCH (09:51)
[2017-07-07] MEDS: Enoxaparin Sodium 300mg/3ml vial SUBQ SCH ×2 (09:52→21:18)
[2017-07-07] MEDS: Vitamin A&D Oint 2oz Tube TOPIC SCH ×2 (09:54→20:52)
--- NOTE | 2017-07-07 10:12 | Infectious Diseases Prog Note ---
Assessment/Plan Assessment/Plan A; Septic Shock resolved Complicated UTI with MRSA & pseudomonas Pneumonia CoANS in blood likely contamination Acute respiratory failure MRSA colonization P; Continue Vancomycin & Zosyn Subjective ROS Limited/Unobtainable: Yes Cardiovascular: Reports: other - off pressor Genitourinary: Reports: other - suprapubic catheter changed Allergies: Coded Allergies: No Known Allergies (Verified , 09/26/12) Objective Vital Signs Last 24 Hour Vital Signs Date Time Temp Pulse Resp B/P (MAP) Pulse Ox O2 Delivery O2 Flow Rate FiO2 07/07/17 10:09 45 07/07/17 09:30 45 07/07/17 09:14 45 07/07/17 09:11 96 17 45 07/07/17 08:00 45 07/07/17 07:20 105 22 100 Mechanical Ventilator 45 07/07/17 07:18 104 20 45 07/07/17 07:10 109 20 100 Mechanical Ventilator 07/07/17 07:00 87 28 97/57 98 Mechanical Ventilator 45 07/07/17 06:00 95 28 111/92 98 Mechanical Ventilator 45 07/07/17 05:11 92 18 45 07/07/17 05:00 100 28 89/51 98 Mechanical Ventilator 45 07/07/17 04:00 45 07/07/17 04:00 94 07/07/17 04:00 98.3 114 28 98/58 98 Mechanical Ventilator 45 07/07/17 03:16 104 18 100 Mechanical Ventilator 45 07/07/17 03:10 97 12 100 Mechanical Ventilator 07/07/17 03:08 97 20 45 07/07/17 03:00 93 20 95/61 100 Mechanical Ventilator 45 07/07/17 02:00 95 24 100/68 100 Mechanical Ventilator 45 07/07/17 01:15 93 12 45 07/07/17 01:00 89 20 101/54 100 Mechanical Ventilator 45 07/07/17 00:00 98.5 89 20 95/61 100 Mechanical Ventilator 45 07/07/17 00:00 98 07/07/17 00:00 45 07/06/17 23:28 95 12 100 Mechanical Ventilator 45 07/06/17 23:27 92 12 45 07/06/17 23:20 98 12 100 Mechanical Ventilator 07/06/17 23:00 92 20 97/57 100 Mechanical Ventilator 45 07/06/17 22:00 89 20 84/55 100 Mechanical Ventilator 45 07/06/17 21:31 110/60 07/06/17 21:10 101 24 45 07/06/17 21:00 95 21 84/48 100 Mechanical Ventilator 45 07/06/17 20:00 91 07/06/17 20:00 45 07/06/17 20:00 104 23 126/109 100 Mechanical Ventilator 45 07/06/17 19:25 100 20 100 Mechanical Ventilator 45 07/06/17 19:20 95 31 100 Mechanical Ventilator 07/06/17 19:12 97 24 45 07/06/17 19:00 98 23 110/76 100 Mechanical Ventilator 45 07/06/17 18:00 109 26 113/70 100 Mechanical Ventilator 45 07/06/17 17:00 110 26 100/88 100 Mechanical Ventilator 45 07/06/17 16:51 113 24 45 07/06/17 16:00 45 07/06/17 16:00 98.9 109 23 130/63 100 Mechanical Ventilator 45 07/06/17 16:00 117 07/06/17 15:19 104 16 100 Mechanical Ventilator 45 07/06/17 15:18 109 22 45 07/06/17 15:10 109 22 99 Mechanical Ventilator 07/06/17 15:00 107 27 94/52 100 Mechanical Ventilator 45 07/06/17 14:00 98.7 99 24 112/69 100 Mechanical Ventilator 45 07/06/17 13:10 111 35 45 07/06/17 13:00 102 24 132/65 100 Mechanical Ventilator 45 07/06/17 12:00 99.3 105 24 99/76 100 Mechanical Ventilator 45 07/06/17 12:00 45 07/06/17 12:00 107 07/06/17 11:02 106 28 100 Mechanical Ventilator 45 07/06/17 11:00 103 23 111/62 100 Mechanical Ventilator 45 07/06/17 10:59 102 23 45 07/06/17 10:54 102 24 99 Mechanical Ventilator Height (Feet): 6 Weight (Pounds): 176 HEENT: other - orally intubated Respiratory/Chest: lungs clear, other - on ventilator Cardiovascular: normal rate, other - RIJ central line Abdomen: soft, non tender, other - GT feeding Genitourinary: other - Suprapubic catheter Extremities: no edema Neurologic/Psychiatric: disoriented Laboratory Tests Test 07/06/17 20:40 12/13/17 04:00 Sodium Level 137 MMOL/L (136-145) Potassium Level 3.6 MMOL/L (3.5-5.1) Chloride Level 105 MMOL/L (98-107) Carbon Dioxide Level 26 MMOL/L (21-32) Anion Gap 6 mmol/L (5-15) Blood Urea Nitrogen 15 mg/dL (7-18) Creatinine 0.7 MG/DL (0.55-1.30) Estimat Glomerular Filtration Rate mL/min (>60) Glucose Level 151 MG/DL (74-106) H Calcium Level 8.2 MG/DL (8.5-10.1) L Total Bilirubin 0.3 MG/DL (0.2-1.0) Aspartate Amino Transf (AST/SGOT) 11 U/L (15-37) L Alanine Aminotransferase (ALT/SGPT) 11 U/L (12-78) L Alkaline Phosphatase 106 U/L (46-116) Total Protein 5.7 G/DL (6.4-8.2) L Albumin 1.6 G/DL (3.4-5.0) L Globulin 4.1 g/dL Albumin/Globulin Ratio 0.4 (1.0-2.7) L White Blood Count 10.2 K/UL (4.8-10.8) Red Blood Count 2.91 M/UL (4.70-6.10) L Hemoglobin 8.8 G/DL (14.2-18.0) L Hematocrit 26.4 % (42.0-52.0) L Mean Corpuscular Volume 91 FL (80-99) Mean Corpuscular Hemoglobin 30.4 PG (27.0-31.0) Mean Corpuscular Hemoglobin Concent 33.5 G/DL (32.0-36.0) Red Cell Distribution Width 13.0 % (11.6-14.8) Platelet Count 263 K/UL (150-450) Mean Platelet Volume 7.7 FL (6.5-10.1) Neutrophils (%) (Auto) 75.9 % (45.0-75.0) H Lymphocytes (%) (Auto) 11.7 % (20.0-45.0) L Monocytes (%) (Auto) 8.1 % (1.0-10.0) Eosinophils (%) (Auto) 3.7 % (0.0-3.0) H Basophils (%) (Auto) 0.8 % (0.0-2.0) Current Medications Medications (Trade) Dose Ordered Sig/Matt Route PRN Reason Start Time Stop Time Status Last Admin Dose Admin Acetaminophen (Tylenol) 650 mg Q4H PRN GT Mild Pain (1-3) 07/02/17 19:00 08/01/17 18:59 07/05/17 09:12 Acetaminophen/ Hydrocodone Bitart ([place] 5/325) 1 tab QID PRN ORAL for moderate pain (4-6) 07/03/17 18:45 07/10/17 18:44 Albuterol/ Ipratropium (Albuterol/ Ipratropium) 3 ml Q4H HHN 07/02/17 19:00 07/07/17 18:59 07/07/17 07:18 Aspirin (ASA) 81 mg DAILY GT 07/03/17 09:00 08/02/17 08:59 07/07/17 09:50 Chlorhexidine Gluconate (Mari-Hex 2%) 1 applic DAILY@2000 TOPIC 07/03/17 20:00 08/02/17 19:59 07/06/17 19:41 Dextrose (Dextrose 50%) STAT PRN IV Hypoglycemia 07/02/17 19:00 08/01/17 18:59 Enoxaparin Sodium (Lovenox) 70 mg EVERY 12 HOURS SUBQ 07/03/17 09:00 08/02/17 08:59 07/07/17 09:52 Famotidine (Pepcid I.v.) 20 mg Q12HR IVP 07/05/17 23:00 08/04/17 22:59 07/07/17 09:50 Insulin Aspart (NovoLOG) Q6HR SUBQ 07/04/17 00:00 08/01/17 20:59 07/07/17 06:03 Insulin Detemir (Levemir) 8 units BID SUBQ 07/03/17 22:00 08/02/17 21:59 07/06/17 18:05 Lorazepam (Ativan 2mg/ml 1ml) 0.5 mg Q3HR PRN IV For Anxiety 07/03/17 18:30 07/10/17 18:29 07/05/17 14:36 Midodrine (Pro-Amatine) 10 mg THREE TIMES A DAY GT 07/03/17 09:00 08/02/17 08:59 07/07/17 09:50 Norepinephrine Bitartrate 4 mg/ Dextrose 250 ml @ 0 mls/hr Q24H IV 07/02/17 21:31 08/01/17 21:30 07/05/17 10:12 Ondansetron HCl (Zofran) 4 mg Q6H PRN GT Nausea & Vomiting 07/02/17 19:00 08/01/17 18:59 Pantoprazole (Protonix) 40 mg DAILY IV 07/03/17 09:00 08/02/17 08:59 07/07/17 09:51 Piperacillin Sod/ Tazobactam Sod 3.375 gm/Dextrose 55 ml @ 13.75 mls/ hr EVERY 8 HOURS IVPB 07/02/17 23:00 07/07/17 22:59 07/07/17 06:00 Sodium Chloride 1,000 ml @ 100 mls/hr Q10H IVLG 07/02/17 20:45 08/01/17 20:44 07/06/17 23:32 Vancomycin HCl (Vanco rx to dose) 1 ea DAILY PRN MISC RX TO DOSE PROTOCOL 07/02/17 19:00 08/01/17 18:59 Vancomycin HCl 1 gm/Dextrose 275 ml @ 183.708 mls/hr Q12HR@0000,1200 IVPB 07/03/17 12:00 07/08/17 11:59 07/06/17 23:40 Vitamin A/Vitamin D (A & D Oint) 1 applic EVERY 12 HOURS TOPIC 07/04/17 21:00 08/03/17 20:59 07/07/17 09:54 BREANNE CERVANTES Jul 07, 2017 10:12
[2017-07-07] MEDS: Levemir Flexpen SUBQ SCH ×2 (10:23→18:12)
[2017-07-07] MEDS: LORazepam Inj 2mg/ml 1ml IV PRN (11:12)
--- NOTE | 2017-07-07 12:05 | Nephrology Progress Note ---
Assessment/Plan Problem List: (1) Respiratory distress (2) Suprapubic catheter (3) Septic shock (4) Electrolyte abnormality Assessment HypoKalemia-resolved Respiratory Failure on Vent Septic shock / Pneumonia / UTI Oliguria due to low BP Prostate cancer with suprapubic catheter. Severe Alzheimer dementia. Severe protein-calorie malnutrition. Anemia. Hyperglycemia. Plan Plan: FLuid challenge- Cortisol level wnl Antibiotics pulmonary support K supplements Per order Subjective ROS Limited/Unobtainable: Yes Objective Objective Last 24 Hour Vital Signs Date Time Temp Pulse Resp B/P (MAP) Pulse Ox O2 Delivery O2 Flow Rate FiO2 07/07/17 11:00 106 22 100/60 100 Mechanical Ventilator 45 07/07/17 10:48 111 23 100 Mechanical Ventilator 45 07/07/17 10:45 103 12 45 07/07/17 10:39 103 12 100 Mechanical Ventilator 07/07/17 10:09 45 07/07/17 10:00 110 23 109/66 100 Mechanical Ventilator 45 07/07/17 09:30 45 07/07/17 09:14 45 07/07/17 09:11 96 17 45 07/07/17 09:00 108 28 109/84 100 Mechanical Ventilator 45 07/07/17 08:00 45 07/07/17 08:00 99 21 92/58 100 Mechanical Ventilator 45 07/07/17 07:20 105 22 100 Mechanical Ventilator 45 07/07/17 07:18 104 20 45 07/07/17 07:10 109 20 100 Mechanical Ventilator 07/07/17 07:00 87 28 97/57 98 Mechanical Ventilator 45 07/07/17 06:00 95 28 111/92 98 Mechanical Ventilator 45 07/07/17 05:11 92 18 45 07/07/17 05:00 100 28 89/51 98 Mechanical Ventilator 45 07/07/17 04:00 45 07/07/17 04:00 94 07/07/17 04:00 98.3 114 28 98/58 98 Mechanical Ventilator 45 07/07/17 03:16 104 18 100 Mechanical Ventilator 45 07/07/17 03:10 97 12 100 Mechanical Ventilator 07/07/17 03:08 97 20 45 07/07/17 03:00 93 20 95/61 100 Mechanical Ventilator 45 07/07/17 02:00 95 24 100/68 100 Mechanical Ventilator 45 07/07/17 01:15 93 12 45 07/07/17 01:00 89 20 101/54 100 Mechanical Ventilator 45 07/07/17 00:00 98.5 89 20 95/61 100 Mechanical Ventilator 45 07/07/17 00:00 98 07/07/17 00:00 45 07/06/17 23:28 95 12 100 Mechanical Ventilator 45 07/06/17 23:27 92 12 45 07/06/17 23:20 98 12 100 Mechanical Ventilator 07/06/17 23:00 92 20 97/57 100 Mechanical Ventilator 45 07/06/17 22:00 89 20 84/55 100 Mechanical Ventilator 45 07/06/17 21:31 110/60 07/06/17 21:10 101 24 45 07/06/17 21:00 95 21 84/48 100 Mechanical Ventilator 45 07/06/17 20:00 91 07/06/17 20:00 45 07/06/17 20:00 104 23 126/109 100 Mechanical Ventilator 45 07/06/17 19:25 100 20 100 Mechanical Ventilator 45 07/06/17 19:20 95 31 100 Mechanical Ventilator 07/06/17 19:12 97 24 45 07/06/17 19:00 98 23 110/76 100 Mechanical Ventilator 45 07/06/17 18:00 109 26 113/70 100 Mechanical Ventilator 45 07/06/17 17:00 110 26 100/88 100 Mechanical Ventilator 45 07/06/17 16:51 113 24 45 07/06/17 16:00 45 07/06/17 16:00 98.9 109 23 130/63 100 Mechanical Ventilator 45 07/06/17 16:00 117 07/06/17 15:19 104 16 100 Mechanical Ventilator 45 07/06/17 15:18 109 22 45 07/06/17 15:10 109 22 99 Mechanical Ventilator 07/06/17 15:00 107 27 94/52 100 Mechanical Ventilator 45 07/06/17 14:00 98.7 99 24 112/69 100 Mechanical Ventilator 45 07/06/17 13:10 111 35 45 07/06/17 13:00 102 24 132/65 100 Mechanical Ventilator 45 Intake and Output 07/07/17 07/08/17 19:00 07:00 Intake Total 165 ml Output Total 300 ml Balance -135 ml Tube Feeding 165 ml Output Urine Total 300 ml Laboratory Tests 07/06/17 20:40: Sodium Level 137, Potassium Level 3.6, Chloride Level 105, Carbon Dioxide Level 26, Anion Gap 6, Blood Urea Nitrogen 15, Creatinine 0.7, Estimat Glomerular Filtration Rate , Glucose Level 151H, Calcium Level 8.2L, Total Bilirubin 0.3, Aspartate Amino Transf (AST/SGOT) 11L, Alanine Aminotransferase (ALT/SGPT) 11L, Alkaline Phosphatase 106, Total Protein 5.7L, Albumin 1.6L, Globulin 4.1, Albumin/Globulin Ratio 0.4L 07/07/17 04:00: White Blood Count 10.2, Red Blood Count 2.91L, Hemoglobin 8.8L, Hematocrit 26.4L , Mean Corpuscular Volume 91, Mean Corpuscular Hemoglobin 30.4, Mean Corpuscular Hemoglobin Concent 33.5, Red Cell Distribution Width 13.0, Platelet Count 263, Mean Platelet Volume 7.7, Neutrophils (%) (Auto) 75.9H, Lymphocytes ( %) (Auto) 11.7L, Monocytes (%) (Auto) 8.1, Eosinophils (%) (Auto) 3.7H, Basophils (%) (Auto) 0.8 Height (Feet): 6 Weight (Pounds): 176 General Appearance: no apparent distress Respiratory/Chest: decreased breath sounds Abdomen: distended Objective no other change FAITH SEARS Jul 07, 2017 12:05
[2017-07-07] MEDS: Vancomycin 1gm in D5W 275ml IVPB SCH (12:17)
--- NOTE | 2017-07-07 13:26 | General Progress Note ---
Assessment/Plan Problem List: (1) COPD (chronic obstructive pulmonary disease) ICD Codes: J44.9 - Chronic obstructive pulmonary disease SNOMED: 21090834 (2) Suprapubic catheter ICD Codes: Z93.59 - Other cystostomy status SNOMED: 607584664, 406765950 (3) Catheter-associated urinary tract infection ICD Codes: T83.511A - Infection and inflammatory reaction due to indwelling urethral catheter, initial encounter; N39.0 - Urinary tract infection, site not specified SNOMED: 375554728 (4) Anemia ICD Codes: D64.9 - Anemia, unspecified SNOMED: 162385150 (5) Dementia ICD Codes: F03.90 - Unspecified dementia without behavioral disturbance SNOMED: 03367551 (6) Seizure ICD Codes: R56.9 - Unspecified convulsions SNOMED: 44091612 (7) Prostate cancer ICD Codes: C61 - Malignant neoplasm of prostate SNOMED: 385439207 (8) COPD (chronic obstructive pulmonary disease) ICD Codes: J44.9 - Chronic obstructive pulmonary disease, unspecified SNOMED: 91996916 (9) Respiratory distress ICD Codes: R06.03 - Acute respiratory distress SNOMED: 079515836 (10) Sepsis ICD Codes: A41.9 - Sepsis, unspecified organism SNOMED: 06040689 Status: progressing Assessment/Plan resp failure intubated lyte abnormaility copd asp pna dehyration sepsis lyte abnormailty poor prognosis not improving no wheezing afebrile Subjective ROS Limited/Unobtainable: Yes Allergies: Coded Allergies: No Known Allergies (Verified , 09/26/12) Objective Last 24 Hour Vital Signs Date Time Temp Pulse Resp B/P (MAP) Pulse Ox O2 Delivery O2 Flow Rate FiO2 07/07/17 12:55 101 19 45 07/07/17 12:00 99.2 100 18 111/69 100 Mechanical Ventilator 45 07/07/17 12:00 100 07/07/17 11:00 106 22 100/60 100 Mechanical Ventilator 45 07/07/17 10:48 111 23 100 Mechanical Ventilator 45 07/07/17 10:45 103 12 45 07/07/17 10:39 103 12 100 Mechanical Ventilator 07/07/17 10:09 45 07/07/17 10:00 110 23 109/66 100 Mechanical Ventilator 45 07/07/17 09:30 45 07/07/17 09:14 45 07/07/17 09:11 96 17 45 07/07/17 09:00 108 28 109/84 100 Mechanical Ventilator 45 07/07/17 08:00 45 07/07/17 08:00 99 21 92/58 100 Mechanical Ventilator 45 07/07/17 08:00 102 07/07/17 07:20 105 22 100 Mechanical Ventilator 45 07/07/17 07:18 104 20 45 07/07/17 07:10 109 20 100 Mechanical Ventilator 07/07/17 07:00 87 28 97/57 98 Mechanical Ventilator 45 07/07/17 06:00 95 28 111/92 98 Mechanical Ventilator 45 07/07/17 05:11 92 18 45 07/07/17 05:00 100 28 89/51 98 Mechanical Ventilator 45 07/07/17 04:00 45 07/07/17 04:00 94 07/07/17 04:00 98.3 114 28 98/58 98 Mechanical Ventilator 45 07/07/17 03:16 104 18 100 Mechanical Ventilator 45 07/07/17 03:10 97 12 100 Mechanical Ventilator 07/07/17 03:08 97 20 45 07/07/17 03:00 93 20 95/61 100 Mechanical Ventilator 45 07/07/17 02:00 95 24 100/68 100 Mechanical Ventilator 45 07/07/17 01:15 93 12 45 07/07/17 01:00 89 20 101/54 100 Mechanical Ventilator 45 07/07/17 00:00 98.5 89 20 95/61 100 Mechanical Ventilator 45 07/07/17 00:00 98 07/07/17 00:00 45 07/06/17 23:28 95 12 100 Mechanical Ventilator 45 07/06/17 23:27 92 12 45 07/06/17 23:20 98 12 100 Mechanical Ventilator 07/06/17 23:00 92 20 97/57 100 Mechanical Ventilator 45 07/06/17 22:00 89 20 84/55 100 Mechanical Ventilator 45 07/06/17 21:31 110/60 07/06/17 21:10 101 24 45 07/06/17 21:00 95 21 84/48 100 Mechanical Ventilator 45 07/06/17 20:00 91 07/06/17 20:00 45 07/06/17 20:00 104 23 126/109 100 Mechanical Ventilator 45 07/06/17 19:25 100 20 100 Mechanical Ventilator 45 07/06/17 19:20 95 31 100 Mechanical Ventilator 07/06/17 19:12 97 24 45 07/06/17 19:00 98 23 110/76 100 Mechanical Ventilator 45 07/06/17 18:00 109 26 113/70 100 Mechanical Ventilator 45 07/06/17 17:00 110 26 100/88 100 Mechanical Ventilator 45 07/06/17 16:51 113 24 45 07/06/17 16:00 45 07/06/17 16:00 98.9 109 23 130/63 100 Mechanical Ventilator 45 07/06/17 16:00 117 07/06/17 15:19 104 16 100 Mechanical Ventilator 45 07/06/17 15:18 109 22 45 07/06/17 15:10 109 22 99 Mechanical Ventilator 07/06/17 15:00 107 27 94/52 100 Mechanical Ventilator 45 07/06/17 14:00 98.7 99 24 112/69 100 Mechanical Ventilator 45 Intake and Output 07/07/17 07/08/17 19:00 07:00 Intake Total 858.7 ml Output Total 380 ml Balance 478.7 ml IV Total 583.7 ml Tube Feeding 275 ml Output Urine Total 380 ml Laboratory Tests 07/06/17 20:40: Sodium Level 137, Potassium Level 3.6, Chloride Level 105, Carbon Dioxide Level 26, Anion Gap 6, Blood Urea Nitrogen 15, Creatinine 0.7, Estimat Glomerular Filtration Rate , Glucose Level 151H, Calcium Level 8.2L, Total Bilirubin 0.3, Aspartate Amino Transf (AST/SGOT) 11L, Alanine Aminotransferase (ALT/SGPT) 11L, Alkaline Phosphatase 106, Total Protein 5.7L, Albumin 1.6L, Globulin 4.1, Albumin/Globulin Ratio 0.4L 07/07/17 04:00: White Blood Count 10.2, Red Blood Count 2.91L, Hemoglobin 8.8L, Hematocrit 26.4L , Mean Corpuscular Volume 91, Mean Corpuscular Hemoglobin 30.4, Mean Corpuscular Hemoglobin Concent 33.5, Red Cell Distribution Width 13.0, Platelet Count 263, Mean Platelet Volume 7.7, Neutrophils (%) (Auto) 75.9H, Lymphocytes ( %) (Auto) 11.7L, Monocytes (%) (Auto) 8.1, Eosinophils (%) (Auto) 3.7H, Basophils (%) (Auto) 0.8 Height (Feet): 6 Weight (Pounds): 176 Neck: supple Cardiovascular: normal rate Respiratory/Chest: lungs clear Abdomen: soft Sary Oakes MD Jul 07, 2017 13:26
--- NOTE | 2017-07-07 14:22 | General Progress Note ---
Assessment/Plan Assessment/Plan ASSESSMENT AND RECOMMENDATIONS: 1. Prostate cancer, controlled at this time. Current PSA of 5.6. With suprapubic catheter 2. Leukocytosis, secondary to underlying infection, infiltrates noted.ID following 3. Anemia, rule out gastrointestinal bleed. Ferritin wnl. 4. Sepsis resolved Subjective Allergies: Coded Allergies: No Known Allergies (Verified , 09/26/12) All Systems: reviewed and negative except above Subjective H/H slightly lower. no events overnight Objective Last 24 Hour Vital Signs Date Time Temp Pulse Resp B/P (MAP) Pulse Ox O2 Delivery O2 Flow Rate FiO2 07/07/17 12:55 101 19 45 07/07/17 12:00 99.2 100 18 111/69 100 Mechanical Ventilator 45 07/07/17 12:00 100 07/07/17 11:00 106 22 100/60 100 Mechanical Ventilator 45 07/07/17 10:48 111 23 100 Mechanical Ventilator 45 07/07/17 10:45 103 12 45 07/07/17 10:39 103 12 100 Mechanical Ventilator 07/07/17 10:09 45 07/07/17 10:00 110 23 109/66 100 Mechanical Ventilator 45 07/07/17 09:30 45 07/07/17 09:14 45 07/07/17 09:11 96 17 45 07/07/17 09:00 108 28 109/84 100 Mechanical Ventilator 45 07/07/17 08:00 45 07/07/17 08:00 99 21 92/58 100 Mechanical Ventilator 45 07/07/17 08:00 102 07/07/17 07:20 105 22 100 Mechanical Ventilator 45 07/07/17 07:18 104 20 45 07/07/17 07:10 109 20 100 Mechanical Ventilator 07/07/17 07:00 87 28 97/57 98 Mechanical Ventilator 45 07/07/17 06:00 95 28 111/92 98 Mechanical Ventilator 45 07/07/17 05:11 92 18 45 07/07/17 05:00 100 28 89/51 98 Mechanical Ventilator 45 07/07/17 04:00 45 07/07/17 04:00 94 07/07/17 04:00 98.3 114 28 98/58 98 Mechanical Ventilator 45 07/07/17 03:16 104 18 100 Mechanical Ventilator 45 07/07/17 03:10 97 12 100 Mechanical Ventilator 07/07/17 03:08 97 20 45 07/07/17 03:00 93 20 95/61 100 Mechanical Ventilator 45 07/07/17 02:00 95 24 100/68 100 Mechanical Ventilator 45 07/07/17 01:15 93 12 45 07/07/17 01:00 89 20 101/54 100 Mechanical Ventilator 45 07/07/17 00:00 98.5 89 20 95/61 100 Mechanical Ventilator 45 07/07/17 00:00 98 07/07/17 00:00 45 07/06/17 23:28 95 12 100 Mechanical Ventilator 45 07/06/17 23:27 92 12 45 07/06/17 23:20 98 12 100 Mechanical Ventilator 07/06/17 23:00 92 20 97/57 100 Mechanical Ventilator 45 07/06/17 22:00 89 20 84/55 100 Mechanical Ventilator 45 07/06/17 21:31 110/60 07/06/17 21:10 101 24 45 07/06/17 21:00 95 21 84/48 100 Mechanical Ventilator 45 07/06/17 20:00 91 07/06/17 20:00 45 07/06/17 20:00 104 23 126/109 100 Mechanical Ventilator 45 07/06/17 19:25 100 20 100 Mechanical Ventilator 45 07/06/17 19:20 95 31 100 Mechanical Ventilator 07/06/17 19:12 97 24 45 07/06/17 19:00 98 23 110/76 100 Mechanical Ventilator 45 07/06/17 18:00 109 26 113/70 100 Mechanical Ventilator 45 07/06/17 17:00 110 26 100/88 100 Mechanical Ventilator 45 07/06/17 16:51 113 24 45 07/06/17 16:00 45 07/06/17 16:00 98.9 109 23 130/63 100 Mechanical Ventilator 45 07/06/17 16:00 117 07/06/17 15:19 104 16 100 Mechanical Ventilator 45 07/06/17 15:18 109 22 45 07/06/17 15:10 109 22 99 Mechanical Ventilator 07/06/17 15:00 107 27 94/52 100 Mechanical Ventilator 45 Intake and Output 07/07/17 07/08/17 19:00 07:00 Intake Total 858.7 ml Output Total 380 ml Balance 478.7 ml IV Total 583.7 ml Tube Feeding 275 ml Output Urine Total 380 ml Laboratory Tests 07/06/17 20:40: Sodium Level 137, Potassium Level 3.6, Chloride Level 105, Carbon Dioxide Level 26, Anion Gap 6, Blood Urea Nitrogen 15, Creatinine 0.7, Estimat Glomerular Filtration Rate , Glucose Level 151H, Calcium Level 8.2L, Total Bilirubin 0.3, Aspartate Amino Transf (AST/SGOT) 11L, Alanine Aminotransferase (ALT/SGPT) 11L, Alkaline Phosphatase 106, Total Protein 5.7L, Albumin 1.6L, Globulin 4.1, Albumin/Globulin Ratio 0.4L 07/07/17 04:00: White Blood Count 10.2, Red Blood Count 2.91L, Hemoglobin 8.8L, Hematocrit 26.4L , Mean Corpuscular Volume 91, Mean Corpuscular Hemoglobin 30.4, Mean Corpuscular Hemoglobin Concent 33.5, Red Cell Distribution Width 13.0, Platelet Count 263, Mean Platelet Volume 7.7, Neutrophils (%) (Auto) 75.9H, Lymphocytes ( %) (Auto) 11.7L, Monocytes (%) (Auto) 8.1, Eosinophils (%) (Auto) 3.7H, Basophils (%) (Auto) 0.8 Height (Feet): 6 Weight (Pounds): 176 General Appearance: no apparent distress EENT: normal ENT inspection Neck: normal alignment Cardiovascular: normal peripheral pulses Neurologic: tong setter II-XII grossly normal, no motor/sensory deficits Skin: normal pigmentation Jose Luis Rendon Jul 07, 2017 14:22
--- NOTE | 2017-07-07 18:08 | Pulmonology Progress Note ---
Assessment/Plan Assessment/Plan 1. Respiratory failure. 2. Sepsis with shock. 3. Pneumonia. 4. Anuria. 5. Prostate cancer with suprapubic catheter. 6. Severe Alzheimer dementia. 7. Severe protein-calorie malnutrition. 8. Anemia. 9. Possible acute myocardial infarction. 10. Azotemia. 11. Hyperglycemia. 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 support, not weanable yet, high spont RR, good TV cont rx prognosis guarded Subjective ROS Limited/Unobtainable: Yes Constitutional: Denies: fever Allergies: Coded Allergies: No Known Allergies (Verified , 09/26/12) Objective Last 24 Hour Vital Signs Date Time Temp Pulse Resp B/P (MAP) Pulse Ox O2 Delivery O2 Flow Rate FiO2 07/07/17 17:09 98 17 45 07/07/17 16:00 99.0 92 18 95/56 100 Mechanical Ventilator 45 07/07/17 16:00 91 07/07/17 16:00 45 07/07/17 15:08 106 14 100 Mechanical Ventilator 45 07/07/17 15:06 105 15 45 07/07/17 15:00 101 22 139/89 100 Mechanical Ventilator 45 07/07/17 14:55 104 15 100 Mechanical Ventilator 07/07/17 14:00 92 19 112/66 100 Mechanical Ventilator 45 07/07/17 13:00 103 23 93/56 100 Mechanical Ventilator 45 07/07/17 12:55 101 19 45 07/07/17 12:00 99.2 100 18 111/69 100 Mechanical Ventilator 45 07/07/17 12:00 100 07/07/17 11:00 106 22 100/60 100 Mechanical Ventilator 45 07/07/17 10:48 111 23 100 Mechanical Ventilator 45 07/07/17 10:45 103 12 45 07/07/17 10:39 103 12 100 Mechanical Ventilator 07/07/17 10:09 45 07/07/17 10:00 110 23 109/66 100 Mechanical Ventilator 45 07/07/17 09:30 45 07/07/17 09:14 45 07/07/17 09:11 96 17 45 07/07/17 09:00 108 28 109/84 100 Mechanical Ventilator 45 07/07/17 08:00 45 07/07/17 08:00 99 21 92/58 100 Mechanical Ventilator 45 07/07/17 08:00 102 07/07/17 07:20 105 22 100 Mechanical Ventilator 45 07/07/17 07:18 104 20 45 07/07/17 07:10 109 20 100 Mechanical Ventilator 07/07/17 07:00 87 28 97/57 98 Mechanical Ventilator 45 07/07/17 06:00 95 28 111/92 98 Mechanical Ventilator 45 07/07/17 05:11 92 18 45 07/07/17 05:00 100 28 89/51 98 Mechanical Ventilator 45 07/07/17 04:00 45 07/07/17 04:00 94 07/07/17 04:00 98.3 114 28 98/58 98 Mechanical Ventilator 45 07/07/17 03:16 104 18 100 Mechanical Ventilator 45 07/07/17 03:10 97 12 100 Mechanical Ventilator 07/07/17 03:08 97 20 45 07/07/17 03:00 93 20 95/61 100 Mechanical Ventilator 45 07/07/17 02:00 95 24 100/68 100 Mechanical Ventilator 45 07/07/17 01:15 93 12 45 07/07/17 01:00 89 20 101/54 100 Mechanical Ventilator 45 07/07/17 00:00 98.5 89 20 95/61 100 Mechanical Ventilator 45 07/07/17 00:00 98 07/07/17 00:00 45 07/06/17 23:28 95 12 100 Mechanical Ventilator 45 07/06/17 23:27 92 12 45 07/06/17 23:20 98 12 100 Mechanical Ventilator 07/06/17 23:00 92 20 97/57 100 Mechanical Ventilator 45 07/06/17 22:00 89 20 84/55 100 Mechanical Ventilator 45 07/06/17 21:31 110/60 07/06/17 21:10 101 24 45 07/06/17 21:00 95 21 84/48 100 Mechanical Ventilator 45 07/06/17 20:00 91 07/06/17 20:00 45 07/06/17 20:00 104 23 126/109 100 Mechanical Ventilator 45 07/06/17 19:25 100 20 100 Mechanical Ventilator 45 07/06/17 19:20 95 31 100 Mechanical Ventilator 07/06/17 19:12 97 24 45 07/06/17 19:00 98 23 110/76 100 Mechanical Ventilator 45 Intake and Output 07/07/17 07/08/17 19:00 07:00 Intake Total 1251.20 ml Output Total 690 ml Balance 561.20 ml IV Total 811.20 ml Tube Feeding 440 ml Output Urine Total 690 ml Objective G tube, suprapubic cath General Appearance: no acute distress, cachetic HEENT: atraumatic Respiratory/Chest: lungs clear Cardiovascular: normal rate Laboratory Tests 07/06/17 20:40: Sodium Level 137, Potassium Level 3.6, Chloride Level 105, Carbon Dioxide Level 26, Anion Gap 6, Blood Urea Nitrogen 15, Creatinine 0.7, Estimat Glomerular Filtration Rate , Glucose Level 151H, Calcium Level 8.2L, Total Bilirubin 0.3, Aspartate Amino Transf (AST/SGOT) 11L, Alanine Aminotransferase (ALT/SGPT) 11L, Alkaline Phosphatase 106, Total Protein 5.7L, Albumin 1.6L, Globulin 4.1, Albumin/Globulin Ratio 0.4L 07/07/17 04:00: White Blood Count 10.2, Red Blood Count 2.91L, Hemoglobin 8.8L, Hematocrit 26.4L , Mean Corpuscular Volume 91, Mean Corpuscular Hemoglobin 30.4, Mean Corpuscular Hemoglobin Concent 33.5, Red Cell Distribution Width 13.0, Platelet Count 263, Mean Platelet Volume 7.7, Neutrophils (%) (Auto) 75.9H, Lymphocytes ( %) (Auto) 11.7L, Monocytes (%) (Auto) 8.1, Eosinophils (%) (Auto) 3.7H, Basophils (%) (Auto) 0.8 Current Medications Medications (Trade) Dose Ordered Sig/Matt Route PRN Reason Start Time Stop Time Status Last Admin Dose Admin Acetaminophen (Tylenol) 650 mg Q4H PRN GT Mild Pain (1-3) 07/02/17 19:00 08/01/17 18:59 07/05/17 09:12 Acetaminophen/ Hydrocodone Bitart ([place] 5/325) 1 tab QID PRN ORAL for moderate pain (4-6) 07/03/17 18:45 07/10/17 18:44 Albuterol/ Ipratropium (Albuterol/ Ipratropium) 3 ml Q4H HHN 07/02/17 19:00 07/07/17 18:59 07/07/17 15:08 Aspirin (ASA) 81 mg DAILY GT 07/03/17 09:00 08/02/17 08:59 07/07/17 09:50 Chlorhexidine Gluconate (Mari-Hex 2%) 1 applic DAILY@2000 TOPIC 07/03/17 20:00 08/02/17 19:59 07/06/17 19:41 Dextrose (Dextrose 50%) STAT PRN IV Hypoglycemia 07/02/17 19:00 08/01/17 18:59 Enoxaparin Sodium (Lovenox) 90 mg EVERY 12 HOURS SUBQ 07/07/17 21:00 08/06/17 20:59 Famotidine (Pepcid I.v.) 20 mg Q12HR IVP 07/05/17 23:00 08/04/17 22:59 07/07/17 09:50 Insulin Aspart (NovoLOG) Q6HR SUBQ 07/04/17 00:00 08/01/17 20:59 07/07/17 12:24 Insulin Detemir (Levemir) 8 units BID SUBQ 07/03/17 22:00 08/02/17 21:59 07/07/17 10:23 Lorazepam (Ativan 2mg/ml 1ml) 0.5 mg Q3HR PRN IV For Anxiety 07/03/17 18:30 07/10/17 18:29 07/07/17 11:12 Midodrine (Pro-Amatine) 10 mg THREE TIMES A DAY GT 07/03/17 09:00 08/02/17 08:59 07/07/17 14:15 Norepinephrine Bitartrate 4 mg/ Dextrose 250 ml @ 0 mls/hr Q24H IV 07/02/17 21:31 08/01/17 21:30 07/05/17 10:12 Ondansetron HCl (Zofran) 4 mg Q6H PRN GT Nausea & Vomiting 07/02/17 19:00 08/01/17 18:59 Pantoprazole (Protonix) 40 mg DAILY IV 07/03/17 09:00 08/02/17 08:59 07/07/17 09:51 Piperacillin Sod/ Tazobactam Sod 3.375 gm/Dextrose 55 ml @ 13.75 mls/ hr EVERY 8 HOURS IVPB 07/02/17 23:00 07/12/17 22:59 07/07/17 14:15 Sodium Chloride 1,000 ml @ 100 mls/hr Q10H IVLG 07/02/17 20:45 08/01/17 20:44 07/07/17 11:12 Vancomycin HCl (Vanco rx to dose) 1 ea DAILY PRN MISC RX TO DOSE PROTOCOL 07/02/17 19:00 08/01/17 18:59 Vancomycin HCl 1 gm/Dextrose 275 ml @ 183.708 mls/hr Q12HR@0000,1200 IVPB 07/03/17 12:00 07/12/17 11:59 07/07/17 12:17 Vitamin A/Vitamin D (A & D Oint) 1 applic EVERY 12 HOURS TOPIC 07/04/17 21:00 08/03/17 20:59 07/07/17 09:54 SABAS KNOTT Jul 07, 2017 18:08
[2017-07-07] MEDS: Dyna-Hex 2% Top Sol 2oz TOPIC SCH (20:19)
--- NOTE | 2017-07-07 21:30 | General Progress Note ---
Assessment/Plan Assessment/Plan Assessment - OBS - dysphagia / GT - prostate CA - anemia - s/p Suprapubic catheter - DM - Leukocytosis Recommendations - GT feeding - follow residuals - Elevate HOB - monitor H&H - PPI - abx Subjective Allergies: Coded Allergies: No Known Allergies (Verified , 09/26/12) Subjective above noted d/w RN tolerating feeds non communicative Objective Last 24 Hour Vital Signs Date Time Temp Pulse Resp B/P (MAP) Pulse Ox O2 Delivery O2 Flow Rate FiO2 07/07/17 21:22 99 25 40 07/07/17 20:00 99.4 91 20 112/79 100 Mechanical Ventilator 45 07/07/17 20:00 45 07/07/17 20:00 91 07/07/17 19:44 87 19 Mechanical Ventilator 40 07/07/17 19:19 Mechanical Ventilator 07/07/17 19:18 87 19 100 Mechanical Ventilator 40 07/07/17 19:17 87 19 40 07/07/17 19:00 87 24 102/79 99 Mechanical Ventilator 45 07/07/17 18:00 103 25 96/55 100 Mechanical Ventilator 45 07/07/17 17:09 98 17 45 07/07/17 17:00 97 20 107/70 100 Mechanical Ventilator 45 07/07/17 16:00 99.0 92 18 95/56 100 Mechanical Ventilator 45 07/07/17 16:00 91 07/07/17 16:00 45 07/07/17 15:08 106 14 100 Mechanical Ventilator 45 07/07/17 15:06 105 15 45 07/07/17 15:00 101 22 139/89 100 Mechanical Ventilator 45 07/07/17 14:55 104 15 100 Mechanical Ventilator 07/07/17 14:00 92 19 112/66 100 Mechanical Ventilator 45 07/07/17 13:00 103 23 93/56 100 Mechanical Ventilator 45 07/07/17 12:55 101 19 45 07/07/17 12:00 99.2 100 18 111/69 100 Mechanical Ventilator 45 07/07/17 12:00 100 07/07/17 11:00 106 22 100/60 100 Mechanical Ventilator 45 07/07/17 10:48 111 23 100 Mechanical Ventilator 45 07/07/17 10:45 103 12 45 07/07/17 10:39 103 12 100 Mechanical Ventilator 07/07/17 10:09 45 07/07/17 10:00 110 23 109/66 100 Mechanical Ventilator 45 07/07/17 09:30 45 07/07/17 09:14 45 07/07/17 09:11 96 17 45 07/07/17 09:00 108 28 109/84 100 Mechanical Ventilator 45 07/07/17 08:00 45 07/07/17 08:00 99 21 92/58 100 Mechanical Ventilator 45 07/07/17 08:00 102 07/07/17 07:20 105 22 100 Mechanical Ventilator 45 07/07/17 07:18 104 20 45 07/07/17 07:10 109 20 100 Mechanical Ventilator 07/07/17 07:00 87 28 97/57 98 Mechanical Ventilator 45 07/07/17 06:00 95 28 111/92 98 Mechanical Ventilator 45 07/07/17 05:11 92 18 45 07/07/17 05:00 100 28 89/51 98 Mechanical Ventilator 45 07/07/17 04:00 45 07/07/17 04:00 94 07/07/17 04:00 98.3 114 28 98/58 98 Mechanical Ventilator 45 07/07/17 03:16 104 18 100 Mechanical Ventilator 45 07/07/17 03:10 97 12 100 Mechanical Ventilator 07/07/17 03:08 97 20 45 07/07/17 03:00 93 20 95/61 100 Mechanical Ventilator 45 07/07/17 02:00 95 24 100/68 100 Mechanical Ventilator 45 07/07/17 01:15 93 12 45 07/07/17 01:00 89 20 101/54 100 Mechanical Ventilator 45 07/07/17 00:00 98.5 89 20 95/61 100 Mechanical Ventilator 45 07/07/17 00:00 98 07/07/17 00:00 45 07/06/17 23:28 95 12 100 Mechanical Ventilator 45 07/06/17 23:27 92 12 45 07/06/17 23:20 98 12 100 Mechanical Ventilator 07/06/17 23:00 92 20 97/57 100 Mechanical Ventilator 45 07/06/17 22:00 89 20 84/55 100 Mechanical Ventilator 45 07/06/17 21:31 110/60 Intake and Output 07/07/17 07/08/17 19:00 07:00 Intake Total 1588.70 ml 55 ml Output Total 750 ml 50 ml Balance 838.70 ml 5 ml IV Total 1038.70 ml Tube Feeding 550 ml 55 ml Output Urine Total 750 ml 50 ml Laboratory Tests 07/07/17 04:00: White Blood Count 10.2, Red Blood Count 2.91L, Hemoglobin 8.8L, Hematocrit 26.4L , Mean Corpuscular Volume 91, Mean Corpuscular Hemoglobin 30.4, Mean Corpuscular Hemoglobin Concent 33.5, Red Cell Distribution Width 13.0, Platelet Count 263, Mean Platelet Volume 7.7, Neutrophils (%) (Auto) 75.9H, Lymphocytes ( %) (Auto) 11.7L, Monocytes (%) (Auto) 8.1, Eosinophils (%) (Auto) 3.7H, Basophils (%) (Auto) 0.8 Height (Feet): 6 Weight (Pounds): 176 Objective Eldely WM NCAT, (+) ETT supple, (+ ) IJ catheter CTA RR soft flat, (+) GT, (+) SP catheter no edema OBS CURTIS GARCIA Jul 07, 2017 21:30
[2017-07-08] VITALS (24 sets, daily range): BP systolic 89–135; BP diastolic 4–80
[2017-07-08] MEDS: Vancomycin 1gm in D5W 275ml IVPB SCH (00:10)
[2017-07-08] MEDS: NovoLOG Insulin Flexpen SUBQ SCH ×4 (06:00→17:32)
[2017-07-08] MEDS: Zoysn 3.37gm in D5W 55ml IVPB SCH ×3 (06:13→22:04)
--- NOTE | 2017-07-08 07:52 | Infectious Diseases Prog Note ---
Assessment/Plan Assessment/Plan A; Septic Shock resolved Complicated UTI with MRSA & pseudomonas Pneumonia CoANS in blood likely contamination Acute respiratory failure MRSA colonization P; Continue Vancomycin & Zosyn Subjective ROS Limited/Unobtainable: Yes Neurologic: Reports: confusion, other - on restraint Allergies: Coded Allergies: No Known Allergies (Verified , 09/26/12) Objective Vital Signs Last 24 Hour Vital Signs Date Time Temp Pulse Resp B/P (MAP) Pulse Ox O2 Delivery O2 Flow Rate FiO2 07/08/17 07:09 94 19 40 07/08/17 07:00 97 19 103/69 100 Mechanical Ventilator 45 07/08/17 06:00 97 19 119/69 100 Mechanical Ventilator 45 07/08/17 05:11 91 15 40 07/08/17 05:00 91 19 101/61 100 Mechanical Ventilator 45 07/08/17 04:00 45 07/08/17 04:00 99.0 101 19 97/53 100 Mechanical Ventilator 45 07/08/17 04:00 101 07/08/17 03:18 94 19 40 07/08/17 03:00 103 19 101/61 100 Mechanical Ventilator 45 07/08/17 02:00 83 19 105/40 100 Mechanical Ventilator 45 07/08/17 01:16 92 18 40 07/08/17 01:00 87 19 94/4 100 Mechanical Ventilator 45 07/08/17 00:00 90 07/08/17 00:00 45 07/08/17 00:00 99.0 90 19 95/48 100 Mechanical Ventilator 45 07/07/17 23:16 94 15 40 07/07/17 23:00 94 19 104/57 100 Mechanical Ventilator 45 07/07/17 22:00 73 29 112/42 98 Mechanical Ventilator 45 07/07/17 21:31 105/45 07/07/17 21:22 99 25 40 07/07/17 21:00 72 31 117/42 100 Mechanical Ventilator 45 07/07/17 20:00 99.4 91 20 112/79 100 Mechanical Ventilator 45 07/07/17 20:00 45 07/07/17 20:00 91 07/07/17 19:44 87 19 Mechanical Ventilator 40 07/07/17 19:19 Mechanical Ventilator 07/07/17 19:18 87 19 100 Mechanical Ventilator 40 07/07/17 19:17 87 19 40 07/07/17 19:00 87 24 102/79 99 Mechanical Ventilator 45 07/07/17 18:00 103 25 96/55 100 Mechanical Ventilator 45 07/07/17 17:09 98 17 45 07/07/17 17:00 97 20 107/70 100 Mechanical Ventilator 45 07/07/17 16:00 99.0 92 18 95/56 100 Mechanical Ventilator 45 07/07/17 16:00 91 07/07/17 16:00 45 07/07/17 15:08 106 14 100 Mechanical Ventilator 45 07/07/17 15:06 105 15 45 07/07/17 15:00 101 22 139/89 100 Mechanical Ventilator 45 07/07/17 14:55 104 15 100 Mechanical Ventilator 07/07/17 14:00 92 19 112/66 100 Mechanical Ventilator 45 07/07/17 13:00 103 23 93/56 100 Mechanical Ventilator 45 07/07/17 12:55 101 19 45 07/07/17 12:00 99.2 100 18 111/69 100 Mechanical Ventilator 45 07/07/17 12:00 100 07/07/17 11:00 106 22 100/60 100 Mechanical Ventilator 45 07/07/17 10:48 111 23 100 Mechanical Ventilator 45 07/07/17 10:45 103 12 45 07/07/17 10:39 103 12 100 Mechanical Ventilator 07/07/17 10:09 45 07/07/17 10:00 110 23 109/66 100 Mechanical Ventilator 45 07/07/17 09:30 45 07/07/17 09:14 45 07/07/17 09:11 96 17 45 07/07/17 09:00 108 28 109/84 100 Mechanical Ventilator 45 07/07/17 08:00 45 07/07/17 08:00 99 21 92/58 100 Mechanical Ventilator 45 07/07/17 08:00 102 Height (Feet): 6 Weight (Pounds): 178 HEENT: other - orally intubated Respiratory/Chest: rhonchi - bilaterally, other - on ventilator Cardiovascular: normal rate, other - RIJ central line Abdomen: soft, non tender, other - GT feeding Extremities: no edema Neurologic/Psychiatric: disoriented Current Medications Medications (Trade) Dose Ordered Sig/Matt Route PRN Reason Start Time Stop Time Status Last Admin Dose Admin Acetaminophen (Tylenol) 650 mg Q4H PRN GT Mild Pain (1-3) 07/02/17 19:00 08/01/17 18:59 07/05/17 09:12 Acetaminophen/ Hydrocodone Bitart ([place] 5/325) 1 tab QID PRN ORAL for moderate pain (4-6) 07/03/17 18:45 07/10/17 18:44 Aspirin (ASA) 81 mg DAILY GT 07/03/17 09:00 08/02/17 08:59 07/07/17 09:50 Chlorhexidine Gluconate (Mari-Hex 2%) 1 applic DAILY@2000 TOPIC 07/03/17 20:00 08/02/17 19:59 07/07/17 20:19 Dextrose (Dextrose 50%) STAT PRN IV Hypoglycemia 07/02/17 19:00 08/01/17 18:59 Enoxaparin Sodium (Lovenox) 90 mg EVERY 12 HOURS SUBQ 07/07/17 21:00 08/06/17 20:59 07/07/17 21:18 Famotidine (Pepcid I.v.) 20 mg Q12HR IVP 07/05/17 23:00 08/04/17 22:59 07/07/17 20:52 Insulin Aspart (NovoLOG) Q6HR SUBQ 07/04/17 00:00 08/01/17 20:59 07/07/17 18:17 Insulin Detemir (Levemir) 8 units BID SUBQ 07/03/17 22:00 08/02/17 21:59 07/07/17 18:12 Lorazepam (Ativan 2mg/ml 1ml) 0.5 mg Q3HR PRN IV For Anxiety 07/03/17 18:30 07/10/17 18:29 07/07/17 11:12 Midodrine (Pro-Amatine) 10 mg THREE TIMES A DAY GT 07/03/17 09:00 08/02/17 08:59 07/07/17 18:07 Norepinephrine Bitartrate 4 mg/ Dextrose 250 ml @ 0 mls/hr Q24H IV 07/02/17 21:31 08/01/17 21:30 07/05/17 10:12 Ondansetron HCl (Zofran) 4 mg Q6H PRN GT Nausea & Vomiting 07/02/17 19:00 08/01/17 18:59 Pantoprazole (Protonix) 40 mg DAILY IV 07/03/17 09:00 08/02/17 08:59 07/07/17 09:51 Piperacillin Sod/ Tazobactam Sod 3.375 gm/Dextrose 55 ml @ 13.75 mls/ hr EVERY 8 HOURS IVPB 07/02/17 23:00 07/12/17 22:59 07/08/17 06:13 Sodium Chloride 1,000 ml @ 100 mls/hr Q10H IVLG 07/02/17 20:45 08/01/17 20:44 07/08/17 06:19 Vancomycin HCl (Vanco rx to dose) 1 ea DAILY PRN MISC RX TO DOSE PROTOCOL 07/02/17 19:00 08/01/17 18:59 Vancomycin HCl 1 gm/Dextrose 275 ml @ 183.708 mls/hr Q12HR@0000,1200 IVPB 07/03/17 12:00 07/12/17 11:59 07/08/17 00:10 Vitamin A/Vitamin D (A & D Oint) 1 applic EVERY 12 HOURS TOPIC 07/04/17 21:00 08/03/17 20:59 07/07/17 20:52 BREANNE CERVANTES Jul 08, 2017 07:52
[2017-07-08] MEDS: Aspirin Baby 81mg GT SCH (08:32)
[2017-07-08] MEDS: Pantoprazole Inj IV SCH (08:32)
[2017-07-08] MEDS: Midodrine 10mg tab GT SCH ×3 (08:32→17:31)
[2017-07-08] MEDS: Levemir Flexpen SUBQ SCH ×2 (09:08→17:35)
[2017-07-08] MEDS: Enoxaparin Sodium 300mg/3ml vial SUBQ SCH ×2 (09:10→21:26)
[2017-07-08] MEDS: Vitamin A&D Oint 2oz Tube TOPIC SCH ×2 (09:11→20:54)
--- NOTE | 2017-07-08 11:50 | Diagnostic Imaging Report ---
Indication: Shortness of breath, COPD Technique: XRAY Chest 1v Comparison: 07/04/2017 Findings: The tracheal tube and central line unchanged in position Heart size and mediastinal contours are stable. There is interval worsening of aeration with interstitial and bilateral airspace opacities. Increased haziness of the bilateral lower lungs likely related to increased layering pleural effusion. No definite pneumothorax. Osseous structures appear stable. Impression: Worsening aeration with increased interstitial and bilateral airspace opacities and increased bilateral pleural effusions.
--- NOTE | 2017-07-08 11:51 | General Progress Note ---
Assessment/Plan Assessment/Plan Assessment - OBS - dysphagia / GT - prostate CA - anemia - worse - s/p Suprapubic catheter - DM - Leukocytosis Recommendations - GT feeding - follow residuals - Elevate HOB - monitor H&H - check OB - PPI - abx Subjective Allergies: Coded Allergies: No Known Allergies (Verified , 09/26/12) Subjective above noted d/w RN tolerating feeds non communicative Objective Last 24 Hour Vital Signs Date Time Temp Pulse Resp B/P (MAP) Pulse Ox O2 Delivery O2 Flow Rate FiO2 07/08/17 11:00 88 17 110/60 100 Mechanical Ventilator 40 07/08/17 10:49 92 22 35 07/08/17 10:00 89 17 104/54 100 Mechanical Ventilator 40 07/08/17 09:27 92 16 40 07/08/17 09:00 91 18 97/55 100 Mechanical Ventilator 40 07/08/17 08:00 40 07/08/17 08:00 98.6 103 19 135/80 100 Mechanical Ventilator 40 07/08/17 08:00 108 07/08/17 07:09 94 19 40 07/08/17 07:00 97 19 103/69 100 Mechanical Ventilator 45 07/08/17 06:00 97 19 119/69 100 Mechanical Ventilator 45 07/08/17 05:11 91 15 40 07/08/17 05:00 91 19 101/61 100 Mechanical Ventilator 45 07/08/17 04:00 45 07/08/17 04:00 99.0 101 19 97/53 100 Mechanical Ventilator 45 07/08/17 04:00 101 07/08/17 03:18 94 19 40 07/08/17 03:00 103 19 101/61 100 Mechanical Ventilator 45 07/08/17 02:00 83 19 105/40 100 Mechanical Ventilator 45 07/08/17 01:16 92 18 40 07/08/17 01:00 87 19 94/4 100 Mechanical Ventilator 45 07/08/17 00:00 90 07/08/17 00:00 45 07/08/17 00:00 99.0 90 19 95/48 100 Mechanical Ventilator 45 07/07/17 23:16 94 15 40 07/07/17 23:00 94 19 104/57 100 Mechanical Ventilator 45 07/07/17 22:00 73 29 112/42 98 Mechanical Ventilator 45 07/07/17 21:31 105/45 07/07/17 21:22 99 25 40 07/07/17 21:00 72 31 117/42 100 Mechanical Ventilator 45 07/07/17 20:00 99.4 91 20 112/79 100 Mechanical Ventilator 45 07/07/17 20:00 45 07/07/17 20:00 91 07/07/17 19:44 87 19 Mechanical Ventilator 40 07/07/17 19:19 Mechanical Ventilator 07/07/17 19:18 87 19 100 Mechanical Ventilator 40 07/07/17 19:17 87 19 40 07/07/17 19:00 87 24 102/79 99 Mechanical Ventilator 45 07/07/17 18:00 103 25 96/55 100 Mechanical Ventilator 45 07/07/17 17:09 98 17 45 07/07/17 17:00 97 20 107/70 100 Mechanical Ventilator 45 07/07/17 16:00 99.0 92 18 95/56 100 Mechanical Ventilator 45 07/07/17 16:00 91 07/07/17 16:00 45 07/07/17 15:08 106 14 100 Mechanical Ventilator 45 07/07/17 15:06 105 15 45 07/07/17 15:00 101 22 139/89 100 Mechanical Ventilator 45 07/07/17 14:55 104 15 100 Mechanical Ventilator 07/07/17 14:00 92 19 112/66 100 Mechanical Ventilator 45 07/07/17 13:00 103 23 93/56 100 Mechanical Ventilator 45 07/07/17 12:55 101 19 45 07/07/17 12:00 99.2 100 18 111/69 100 Mechanical Ventilator 45 07/07/17 12:00 100 Intake and Output 07/08/17 07/09/17 19:00 07:00 Intake Total 620 ml Output Total 330 ml Balance 290 ml IV Total 400 ml Tube Feeding 220 ml Output Urine Total 330 ml Laboratory Tests 07/08/17 11:30: Vancomycin Level Trough [Pending] Height (Feet): 6 Weight (Pounds): 178 Objective Eldely WM NCAT, (+) ETT supple, (+ ) IJ catheter CTA RR soft flat, (+) GT, (+) SP catheter no edema OBS CURTIS GARCIA Jul 08, 2017 11:51
--- NOTE | 2017-07-08 14:08 | Nephrology Progress Note ---
Assessment/Plan Problem List: (1) Respiratory distress (2) Suprapubic catheter (3) Septic shock (4) Electrolyte abnormality Assessment HypoKalemia-resolved Respiratory Failure on Vent Septic shock / Pneumonia / UTI Oliguria due to low BP Prostate cancer with suprapubic catheter. Severe Alzheimer dementia. Severe protein-calorie malnutrition. Anemia. Hyperglycemia. Plan Plan: FLuid challenge- Cortisol level wnl Antibiotics pulmonary support K supplements Per order Subjective ROS Limited/Unobtainable: Yes Objective Objective Last 24 Hour Vital Signs Date Time Temp Pulse Resp B/P (MAP) Pulse Ox O2 Delivery O2 Flow Rate FiO2 07/08/17 12:52 102 30 35 07/08/17 11:00 88 17 110/60 100 Mechanical Ventilator 40 07/08/17 10:49 92 22 35 07/08/17 10:00 89 17 104/54 100 Mechanical Ventilator 40 07/08/17 09:27 92 16 40 07/08/17 09:00 91 18 97/55 100 Mechanical Ventilator 40 07/08/17 08:00 40 07/08/17 08:00 98.6 103 19 135/80 100 Mechanical Ventilator 40 07/08/17 08:00 108 07/08/17 07:09 94 19 40 07/08/17 07:00 97 19 103/69 100 Mechanical Ventilator 45 07/08/17 06:00 97 19 119/69 100 Mechanical Ventilator 45 07/08/17 05:11 91 15 40 07/08/17 05:00 91 19 101/61 100 Mechanical Ventilator 45 07/08/17 04:00 45 07/08/17 04:00 99.0 101 19 97/53 100 Mechanical Ventilator 45 07/08/17 04:00 101 07/08/17 03:18 94 19 40 07/08/17 03:00 103 19 101/61 100 Mechanical Ventilator 45 07/08/17 02:00 83 19 105/40 100 Mechanical Ventilator 45 07/08/17 01:16 92 18 40 07/08/17 01:00 87 19 94/4 100 Mechanical Ventilator 45 07/08/17 00:00 90 07/08/17 00:00 45 07/08/17 00:00 99.0 90 19 95/48 100 Mechanical Ventilator 45 07/07/17 23:16 94 15 40 07/07/17 23:00 94 19 104/57 100 Mechanical Ventilator 45 07/07/17 22:00 73 29 112/42 98 Mechanical Ventilator 45 07/07/17 21:31 105/45 07/07/17 21:22 99 25 40 07/07/17 21:00 72 31 117/42 100 Mechanical Ventilator 45 07/07/17 20:00 99.4 91 20 112/79 100 Mechanical Ventilator 45 07/07/17 20:00 45 07/07/17 20:00 91 07/07/17 19:44 87 19 Mechanical Ventilator 40 07/07/17 19:19 Mechanical Ventilator 07/07/17 19:18 87 19 100 Mechanical Ventilator 40 07/07/17 19:17 87 19 40 07/07/17 19:00 87 24 102/79 99 Mechanical Ventilator 45 07/07/17 18:00 103 25 96/55 100 Mechanical Ventilator 45 07/07/17 17:09 98 17 45 07/07/17 17:00 97 20 107/70 100 Mechanical Ventilator 45 07/07/17 16:00 99.0 92 18 95/56 100 Mechanical Ventilator 45 07/07/17 16:00 91 07/07/17 16:00 45 07/07/17 15:08 106 14 100 Mechanical Ventilator 45 07/07/17 15:06 105 15 45 07/07/17 15:00 101 22 139/89 100 Mechanical Ventilator 45 07/07/17 14:55 104 15 100 Mechanical Ventilator Intake and Output 07/08/17 07/09/17 19:00 07:00 Intake Total 620 ml Output Total 330 ml Balance 290 ml IV Total 400 ml Tube Feeding 220 ml Output Urine Total 330 ml Laboratory Tests 07/08/17 11:30: Vancomycin Level Trough 20.1H Height (Feet): 6 Weight (Pounds): 178 General Appearance: no apparent distress Objective no other change FAITH SEARS Jul 08, 2017 14:08
--- NOTE | 2017-07-08 16:56 | Pulmonology Progress Note ---
Assessment/Plan Assessment/Plan 1. Respiratory failure. 2. Sepsis with shock. 3. Pneumonia. 4. Anuria. 5. Prostate cancer with suprapubic catheter. 6. Severe Alzheimer dementia. 7. Severe protein-calorie malnutrition. 8. Anemia. 9. Possible acute myocardial infarction. 10. Azotemia. 11. Hyperglycemia. not tolerating weaning CXR Worsening aeration with increased interstitial and bilateral airspace opacities and increased bilateral pleural effusions. vent support, not weanable yet, high spont RR, good TV cont rx adjust abx per ID prognosis guarded may need trach Subjective ROS Limited/Unobtainable: Yes Allergies: Coded Allergies: No Known Allergies (Verified , 09/26/12) Objective Last 24 Hour Vital Signs Date Time Temp Pulse Resp B/P (MAP) Pulse Ox O2 Delivery O2 Flow Rate FiO2 07/08/17 16:00 98.8 83 17 113/64 100 Mechanical Ventilator 35 07/08/17 16:00 35 07/08/17 15:00 84 19 121/65 100 Mechanical Ventilator 40 07/08/17 14:53 87 18 35 07/08/17 14:00 92 19 115/62 100 Mechanical Ventilator 40 07/08/17 13:00 90 19 115/59 100 Mechanical Ventilator 40 07/08/17 12:52 102 30 35 07/08/17 12:00 88 07/08/17 12:00 35 07/08/17 12:00 98.4 91 18 114/64 100 Mechanical Ventilator 35 07/08/17 11:00 88 17 110/60 100 Mechanical Ventilator 40 07/08/17 10:49 92 22 35 07/08/17 10:00 89 17 104/54 100 Mechanical Ventilator 40 07/08/17 09:27 92 16 40 07/08/17 09:00 91 18 97/55 100 Mechanical Ventilator 40 07/08/17 08:00 40 07/08/17 08:00 98.6 103 19 135/80 100 Mechanical Ventilator 40 07/08/17 08:00 108 07/08/17 07:09 94 19 40 07/08/17 07:00 97 19 103/69 100 Mechanical Ventilator 45 07/08/17 06:00 97 19 119/69 100 Mechanical Ventilator 45 07/08/17 05:11 91 15 40 07/08/17 05:00 91 19 101/61 100 Mechanical Ventilator 45 07/08/17 04:00 45 07/08/17 04:00 99.0 101 19 97/53 100 Mechanical Ventilator 45 07/08/17 04:00 101 07/08/17 03:18 94 19 40 07/08/17 03:00 103 19 101/61 100 Mechanical Ventilator 45 07/08/17 02:00 83 19 105/40 100 Mechanical Ventilator 45 07/08/17 01:16 92 18 40 07/08/17 01:00 87 19 94/4 100 Mechanical Ventilator 45 07/08/17 00:00 90 07/08/17 00:00 45 07/08/17 00:00 99.0 90 19 95/48 100 Mechanical Ventilator 45 07/07/17 23:16 94 15 40 07/07/17 23:00 94 19 104/57 100 Mechanical Ventilator 45 07/07/17 22:00 73 29 112/42 98 Mechanical Ventilator 45 07/07/17 21:31 105/45 07/07/17 21:22 99 25 40 07/07/17 21:00 72 31 117/42 100 Mechanical Ventilator 45 07/07/17 20:00 99.4 91 20 112/79 100 Mechanical Ventilator 45 07/07/17 20:00 45 07/07/17 20:00 91 07/07/17 19:44 87 19 Mechanical Ventilator 40 07/07/17 19:19 Mechanical Ventilator 07/07/17 19:18 87 19 100 Mechanical Ventilator 40 07/07/17 19:17 87 19 40 07/07/17 19:00 87 24 102/79 99 Mechanical Ventilator 45 07/07/17 18:00 103 25 96/55 100 Mechanical Ventilator 45 07/07/17 17:09 98 17 45 07/07/17 17:00 97 20 107/70 100 Mechanical Ventilator 45 Intake and Output 07/08/17 07/09/17 19:00 07:00 Intake Total 895 ml Output Total 910 ml Balance -15 ml IV Total 400 ml Tube Feeding 495 ml Output Urine Total 910 ml Objective G tube, suprapubic cath General Appearance: no acute distress, cachetic Respiratory/Chest: rhonchi Cardiovascular: normal rate Laboratory Tests 07/08/17 11:30: Vancomycin Level Trough 20.1H Current Medications Medications (Trade) Dose Ordered Sig/Matt Route PRN Reason Start Time Stop Time Status Last Admin Dose Admin Acetaminophen (Tylenol) 650 mg Q4H PRN GT Mild Pain (1-3) 07/02/17 19:00 08/01/17 18:59 07/05/17 09:12 Acetaminophen/ Hydrocodone Bitart ([place] 5/325) 1 tab QID PRN ORAL for moderate pain (4-6) 07/03/17 18:45 07/10/17 18:44 Aspirin (ASA) 81 mg DAILY GT 07/03/17 09:00 08/02/17 08:59 07/08/17 08:32 Chlorhexidine Gluconate (Mari-Hex 2%) 1 applic DAILY@2000 TOPIC 07/03/17 20:00 08/02/17 19:59 07/07/17 20:19 Dextrose (Dextrose 50%) STAT PRN IV Hypoglycemia 07/02/17 19:00 08/01/17 18:59 Enoxaparin Sodium (Lovenox) 90 mg EVERY 12 HOURS SUBQ 07/07/17 21:00 08/06/17 20:59 07/08/17 09:10 Famotidine (Pepcid I.v.) 20 mg Q12HR IVP 07/05/17 23:00 08/04/17 22:59 07/08/17 08:32 Insulin Aspart (NovoLOG) Q6HR SUBQ 07/04/17 00:00 08/01/17 20:59 07/08/17 13:57 Insulin Detemir (Levemir) 8 units BID SUBQ 07/03/17 22:00 08/02/17 21:59 07/08/17 09:08 Lorazepam (Ativan 2mg/ml 1ml) 0.5 mg Q3HR PRN IV For Anxiety 07/03/17 18:30 07/10/17 18:29 07/07/17 11:12 Midodrine (Pro-Amatine) 10 mg THREE TIMES A DAY GT 07/03/17 09:00 08/02/17 08:59 07/08/17 13:58 Norepinephrine Bitartrate 4 mg/ Dextrose 250 ml @ 0 mls/hr Q24H IV 07/02/17 21:31 08/01/17 21:30 07/05/17 10:12 Ondansetron HCl (Zofran) 4 mg Q6H PRN GT Nausea & Vomiting 07/02/17 19:00 08/01/17 18:59 Pantoprazole (Protonix) 40 mg DAILY IV 07/03/17 09:00 08/02/17 08:59 07/08/17 08:32 Piperacillin Sod/ Tazobactam Sod 3.375 gm/Dextrose 55 ml @ 13.75 mls/ hr EVERY 8 HOURS IVPB 07/02/17 23:00 07/12/17 22:59 07/08/17 13:58 Sodium Chloride 1,000 ml @ 100 mls/hr Q10H IVLG 07/02/17 20:45 08/01/17 20:44 07/08/17 16:30 Vancomycin HCl (Vanco rx to dose) 1 ea DAILY PRN MISC RX TO DOSE PROTOCOL 07/02/17 19:00 08/01/17 18:59 Vancomycin/Sodium Chloride 250 ml @ 166.667 mls/hr Q12HR@0600,1800 IVPB 07/08/17 18:00 07/13/17 17:59 Vitamin A/Vitamin D (A & D Oint) 1 applic EVERY 12 HOURS TOPIC 07/04/17 21:00 08/03/17 20:59 07/08/17 09:11 SABAS KNOTT Jul 08, 2017 16:56
[2017-07-08] MEDS: Vancomycin 750mg/NS 250ml IVPB SCH (17:31)
[2017-07-08] MEDS: Dyna-Hex 2% Top Sol 2oz TOPIC SCH (20:22)
--- NOTE | 2017-07-08 21:22 | General Progress Note ---
Assessment/Plan Problem List: (1) COPD (chronic obstructive pulmonary disease) ICD Codes: J44.9 - Chronic obstructive pulmonary disease SNOMED: 07464626 (2) Suprapubic catheter ICD Codes: Z93.59 - Other cystostomy status SNOMED: 631997579, 867279459 (3) Catheter-associated urinary tract infection ICD Codes: T83.511A - Infection and inflammatory reaction due to indwelling urethral catheter, initial encounter; N39.0 - Urinary tract infection, site not specified SNOMED: 891931716 (4) Anemia ICD Codes: D64.9 - Anemia, unspecified SNOMED: 248545999 (5) Dementia ICD Codes: F03.90 - Unspecified dementia without behavioral disturbance SNOMED: 42268233 (6) Seizure ICD Codes: R56.9 - Unspecified convulsions SNOMED: 25496034 (7) Prostate cancer ICD Codes: C61 - Malignant neoplasm of prostate SNOMED: 567006075 (8) COPD (chronic obstructive pulmonary disease) ICD Codes: J44.9 - Chronic obstructive pulmonary disease, unspecified SNOMED: 39828556 (9) Respiratory distress ICD Codes: R06.03 - Acute respiratory distress SNOMED: 213193921 (10) Sepsis ICD Codes: A41.9 - Sepsis, unspecified organism SNOMED: 01792480 Status: progressing Assessment/Plan resp failure intubated lyte abnormaility copd asp pna dehyration sepsis afebrile not improving vitals stable Subjective ROS Limited/Unobtainable: Yes Allergies: Coded Allergies: No Known Allergies (Verified , 09/26/12) Objective Last 24 Hour Vital Signs Date Time Temp Pulse Resp B/P (MAP) Pulse Ox O2 Delivery O2 Flow Rate FiO2 07/08/17 21:07 89 25 35 07/08/17 19:27 84 20 35 07/08/17 19:00 86 17 100/57 100 Mechanical Ventilator 35 07/08/17 18:00 86 20 110/58 100 Mechanical Ventilator 35 07/08/17 17:00 85 19 112/64 100 Mechanical Ventilator 35 07/08/17 16:53 94 24 35 07/08/17 16:00 98.8 83 17 113/64 100 Mechanical Ventilator 35 07/08/17 16:00 35 07/08/17 16:00 82 07/08/17 15:00 84 19 121/65 100 Mechanical Ventilator 40 07/08/17 14:53 87 18 35 07/08/17 14:00 92 19 115/62 100 Mechanical Ventilator 40 07/08/17 13:00 90 19 115/59 100 Mechanical Ventilator 40 07/08/17 12:52 102 30 35 07/08/17 12:00 88 07/08/17 12:00 35 07/08/17 12:00 98.4 91 18 114/64 100 Mechanical Ventilator 35 07/08/17 11:00 88 17 110/60 100 Mechanical Ventilator 40 07/08/17 10:49 92 22 35 07/08/17 10:00 89 17 104/54 100 Mechanical Ventilator 40 07/08/17 09:27 92 16 40 07/08/17 09:00 91 18 97/55 100 Mechanical Ventilator 40 07/08/17 08:00 40 07/08/17 08:00 98.6 103 19 135/80 100 Mechanical Ventilator 40 07/08/17 08:00 108 07/08/17 07:09 94 19 40 07/08/17 07:00 97 19 103/69 100 Mechanical Ventilator 45 07/08/17 06:00 97 19 119/69 100 Mechanical Ventilator 45 07/08/17 05:11 91 15 40 07/08/17 05:00 91 19 101/61 100 Mechanical Ventilator 45 07/08/17 04:00 45 07/08/17 04:00 99.0 101 19 97/53 100 Mechanical Ventilator 45 07/08/17 04:00 101 07/08/17 03:18 94 19 40 07/08/17 03:00 103 19 101/61 100 Mechanical Ventilator 45 07/08/17 02:00 83 19 105/40 100 Mechanical Ventilator 45 07/08/17 01:16 92 18 40 07/08/17 01:00 87 19 94/4 100 Mechanical Ventilator 45 07/08/17 00:00 90 07/08/17 00:00 45 07/08/17 00:00 99.0 90 19 95/48 100 Mechanical Ventilator 45 07/07/17 23:16 94 15 40 07/07/17 23:00 94 19 104/57 100 Mechanical Ventilator 45 07/07/17 22:00 73 29 112/42 98 Mechanical Ventilator 45 07/07/17 21:31 105/45 07/07/17 21:22 99 25 40 Intake and Output 07/08/17 07/09/17 19:00 07:00 Intake Total 2108.1255 ml Output Total 1160 ml Balance 948.1255 ml IV Total 1448.1255 ml Tube Feeding 660 ml Output Urine Total 1160 ml Laboratory Tests 07/08/17 11:30: Vancomycin Level Trough 20.1H Height (Feet): 6 Weight (Pounds): 178 General Appearance: lethargic Respiratory/Chest: rhonchi - bilaterally Abdomen: soft Sary Oakes MD Jul 08, 2017 21:22
[2017-07-09] VITALS (26 sets, daily range): BP systolic 85–141; BP diastolic 42–91
[2017-07-09] MEDS: NovoLOG Insulin Flexpen SUBQ SCH ×5 (05:54→23:43)
[2017-07-09] MEDS: Zoysn 3.37gm in D5W 55ml IVPB SCH ×3 (06:16→21:44)
[2017-07-09] MEDS: Vancomycin 750mg/NS 250ml IVPB SCH ×2 (06:17→17:10)
--- NOTE | 2017-07-09 08:13 | Infectious Diseases Prog Note ---
Assessment/Plan Assessment/Plan A; Septic Shock resolved Complicated UTI with MRSA & pseudomonas Pneumonia CoANS in blood likely contamination Acute respiratory failure MRSA colonization P; Continue Vancomycin & Zosyn Subjective ROS Limited/Unobtainable: Yes Respiratory: Reports: other - failed weaning attempts Allergies: Coded Allergies: No Known Allergies (Verified , 09/26/12) Objective Vital Signs Last 24 Hour Vital Signs Date Time Temp Pulse Resp B/P (MAP) Pulse Ox O2 Delivery O2 Flow Rate FiO2 07/09/17 07:26 95 34 35 07/09/17 06:59 92 23 92/56 100 Mechanical Ventilator 35 07/09/17 06:00 90 18 93/52 100 Mechanical Ventilator 35 07/09/17 05:20 94 15 35 07/09/17 05:00 88 30 110/59 96 Mechanical Ventilator 35 07/09/17 04:04 35 07/09/17 04:04 82 07/09/17 04:00 98.9 85 20 109/60 100 Mechanical Ventilator 35 07/09/17 03:00 82 20 102/65 100 Mechanical Ventilator 35 07/09/17 02:33 95 25 35 07/09/17 02:00 83 25 120/65 100 Mechanical Ventilator 35 07/09/17 01:00 80 20 97/52 100 Mechanical Ventilator 35 07/09/17 00:36 75 15 35 07/09/17 00:06 99.5 88 22 120/69 99 Mechanical Ventilator 35 07/09/17 00:02 35 07/08/17 23:57 75 07/08/17 23:00 75 18 89/49 99 Mechanical Ventilator 35 07/08/17 22:36 67 16 35 07/08/17 22:00 89 21 110/58 100 Mechanical Ventilator 35 07/08/17 21:07 89 25 35 07/08/17 21:00 83 20 110/58 100 Mechanical Ventilator 35 07/08/17 20:00 86 07/08/17 20:00 35 07/08/17 20:00 98.2 86 20 119/68 100 Mechanical Ventilator 35 07/08/17 19:27 84 20 35 07/08/17 19:00 86 17 100/57 100 Mechanical Ventilator 35 07/08/17 18:00 86 20 110/58 100 Mechanical Ventilator 35 07/08/17 17:00 85 19 112/64 100 Mechanical Ventilator 35 12/14/17 16:53 94 24 35 07/08/17 16:00 98.8 83 17 113/64 100 Mechanical Ventilator 35 07/08/17 16:00 35 07/08/17 16:00 82 07/08/17 15:00 84 19 121/65 100 Mechanical Ventilator 40 07/08/17 14:53 87 18 35 07/08/17 14:00 92 19 115/62 100 Mechanical Ventilator 40 07/08/17 13:00 90 19 115/59 100 Mechanical Ventilator 40 07/08/17 12:52 102 30 35 07/08/17 12:00 88 07/08/17 12:00 35 07/08/17 12:00 98.4 91 18 114/64 100 Mechanical Ventilator 35 07/08/17 11:00 88 17 110/60 100 Mechanical Ventilator 40 07/08/17 10:49 92 22 35 07/08/17 10:00 89 17 104/54 100 Mechanical Ventilator 40 07/08/17 09:27 92 16 40 07/08/17 09:00 91 18 97/55 100 Mechanical Ventilator 40 Height (Feet): 6 Weight (Pounds): 179 HEENT: other - orally intubated Respiratory/Chest: lungs clear, other - on ventilator Cardiovascular: normal rate, other - RIJ central line Abdomen: soft, non tender, other - GT feeding Genitourinary: other - suprapubic catheter Extremities: no edema Neurologic/Psychiatric: unresponsiveness Laboratory Tests Test 07/08/17 11:30 Vancomycin Level Trough 20.1 ug/mL (5.0-12.0) H Current Medications Medications (Trade) Dose Ordered Sig/Matt Route PRN Reason Start Time Stop Time Status Last Admin Dose Admin Acetaminophen (Tylenol) 650 mg Q4H PRN GT Mild Pain (1-3) 07/02/17 19:00 08/01/17 18:59 07/05/17 09:12 Acetaminophen/ Hydrocodone Bitart ([place] 5/325) 1 tab QID PRN ORAL for moderate pain (4-6) 07/03/17 18:45 07/10/17 18:44 Aspirin (ASA) 81 mg DAILY GT 07/03/17 09:00 08/02/17 08:59 07/08/17 08:32 Chlorhexidine Gluconate (Mari-Hex 2%) 1 applic DAILY@1999 TOPIC 07/03/17 20:00 08/02/17 19:59 07/08/17 20:22 Dextrose (Dextrose 50%) STAT PRN IV Hypoglycemia 07/02/17 19:00 08/01/17 18:59 Enoxaparin Sodium (Lovenox) 90 mg EVERY 12 HOURS SUBQ 07/07/17 21:00 08/06/17 20:59 07/08/17 21:26 Famotidine (Pepcid I.v.) 20 mg Q12HR IVP 07/05/17 23:00 08/04/17 22:59 07/08/17 20:30 Insulin Aspart (NovoLOG) Q6HR SUBQ 07/04/17 00:00 08/01/17 20:59 07/08/17 13:57 Insulin Detemir (Levemir) 8 units BID SUBQ 07/03/17 22:00 08/02/17 21:59 07/08/17 17:35 Lorazepam (Ativan 2mg/ml 1ml) 0.5 mg Q3HR PRN IV For Anxiety 07/03/17 18:30 07/10/17 18:29 07/07/17 11:12 Midodrine (Pro-Amatine) 10 mg THREE TIMES A DAY GT 07/03/17 09:00 08/02/17 08:59 07/08/17 17:31 Norepinephrine Bitartrate 4 mg/ Dextrose 250 ml @ 0 mls/hr Q24H IV 07/02/17 21:31 08/01/17 21:30 07/05/17 10:12 Ondansetron HCl (Zofran) 4 mg Q6H PRN GT Nausea & Vomiting 07/02/17 19:00 08/01/17 18:59 Pantoprazole (Protonix) 40 mg DAILY IV 07/03/17 09:00 08/02/17 08:59 07/08/17 08:32 Piperacillin Sod/ Tazobactam Sod 3.375 gm/Dextrose 55 ml @ 13.75 mls/ hr EVERY 8 HOURS IVPB 07/02/17 23:00 07/12/17 22:59 07/09/17 06:16 Sodium Chloride 1,000 ml @ 100 mls/hr Q10H IVLG 07/02/17 20:45 08/01/17 20:44 07/09/17 02:59 Vancomycin HCl (Vanco rx to dose) 1 ea DAILY PRN MISC RX TO DOSE PROTOCOL 07/02/17 19:00 08/01/17 18:59 Vancomycin/Sodium Chloride 250 ml @ 166.667 mls/hr Q12HR@0600,1800 IVPB 07/08/17 18:00 07/13/17 17:59 07/09/17 06:17 Vitamin A/Vitamin D (A & D Oint) 1 applic EVERY 12 HOURS TOPIC 07/04/17 21:00 08/03/17 20:59 07/08/17 20:54 BREANNE CERVANTES Jul 09, 2017 08:13
[2017-07-09] MEDS: Pantoprazole Inj IV SCH (08:16)
[2017-07-09] MEDS: Midodrine 10mg tab GT SCH ×3 (08:17→17:10)
[2017-07-09] MEDS: Aspirin Baby 81mg GT SCH (08:17)
[2017-07-09] MEDS: Levemir Flexpen SUBQ SCH ×2 (08:28→17:11)
[2017-07-09] MEDS: Enoxaparin Sodium 300mg/3ml vial SUBQ SCH (08:37)
[2017-07-09] MEDS: Vitamin A&D Oint 2oz Tube TOPIC SCH ×2 (08:38→20:43)
--- NOTE | 2017-07-09 15:57 | Cardiology Progress Note ---
Assessment/Plan Assessment/Plan 1. Septic shock resolved, off levophed gtt, most likely due to underlying pneumonia, evident on the chest x-ray. 2. Sinus tachycardia, likely due to hypoxemia/sepsis/hypovolemia/presence of the Levophed drip for hemodynamic support. 3. History of hypertension. All the blood pressure medication on hold. 4. History of cerebrovascular accident. 5. Respiratory failure, ?ARDS, follow up with pulmonary. Subjective Subjective Sinus rhythm at 81. Off levophed gtt. Objective Last 24 Hour Vital Signs Date Time Temp Pulse Resp B/P (MAP) Pulse Ox O2 Delivery O2 Flow Rate FiO2 07/09/17 15:00 89 21 113/56 100 Mechanical Ventilator 35 07/09/17 14:00 88 25 122/66 100 Mechanical Ventilator 35 07/09/17 13:00 92 26 121/59 100 Mechanical Ventilator 35 07/09/17 12:34 124 23 35 07/09/17 12:00 106 07/09/17 12:00 98.6 108 25 141/91 100 Mechanical Ventilator 35 07/09/17 12:00 35 07/09/17 11:30 110 26 125/80 100 Mechanical Ventilator 35 07/09/17 11:10 105 28 35 07/09/17 11:00 103 26 132/71 100 Mechanical Ventilator 35 07/09/17 10:30 89 18 85/42 95 Mechanical Ventilator 35 07/09/17 10:20 92 30 07/09/17 10:00 98 28 116/68 100 Mechanical Ventilator 35 07/09/17 09:00 87 18 118/69 100 Mechanical Ventilator 35 07/09/17 08:30 100 07/09/17 08:30 90 34 35 07/09/17 08:00 90 07/09/17 08:00 98.8 90 17 98/55 100 Mechanical Ventilator 35 07/09/17 07:26 95 34 35 07/09/17 06:59 92 23 92/56 100 Mechanical Ventilator 35 07/09/17 06:00 90 18 93/52 100 Mechanical Ventilator 35 07/09/17 05:20 94 15 35 07/09/17 05:00 88 30 110/59 96 Mechanical Ventilator 35 07/09/17 04:04 35 07/09/17 04:04 82 07/09/17 04:00 98.9 85 20 109/60 100 Mechanical Ventilator 35 07/09/17 03:00 82 20 102/65 100 Mechanical Ventilator 35 07/09/17 02:33 95 25 35 07/09/17 02:00 83 25 120/65 100 Mechanical Ventilator 35 07/09/17 01:00 80 20 97/52 100 Mechanical Ventilator 35 07/09/17 00:36 75 15 35 07/09/17 00:06 99.5 88 22 120/69 99 Mechanical Ventilator 35 07/09/17 00:02 35 07/08/17 23:57 75 07/08/17 23:00 75 18 89/49 99 Mechanical Ventilator 35 07/08/17 22:36 67 16 35 07/08/17 22:00 89 21 110/58 100 Mechanical Ventilator 35 07/08/17 21:07 89 25 35 07/08/17 21:00 83 20 110/58 100 Mechanical Ventilator 35 07/08/17 20:00 86 07/08/17 20:00 35 07/08/17 20:00 98.2 86 20 119/68 100 Mechanical Ventilator 35 07/08/17 19:27 84 20 35 07/08/17 19:00 86 17 100/57 100 Mechanical Ventilator 35 07/08/17 18:00 86 20 110/58 100 Mechanical Ventilator 35 07/08/17 17:00 85 19 112/64 100 Mechanical Ventilator 35 07/08/17 16:53 94 24 35 07/08/17 16:00 98.8 83 17 113/64 100 Mechanical Ventilator 35 07/08/17 16:00 35 07/08/17 16:00 82 Intake and Output 07/09/17 07/10/17 19:00 07:00 Intake Total 1047.917 ml Output Total 740 ml Balance 307.917 ml IV Total 607.917 ml Tube Feeding 440 ml Output Urine Total 740 ml Objective GENERAL: The patient is a chronically ill appearing, 76-year-old gentleman, intubated. HEENT: Atraumatic and normocephalic. ENT, pupils are equal, round, and reactive to light and accommodation. Bitemporal wasting. NECK: JVP cannot be assessed due to positive inspiratory pressure. CVS: Normal S1 and S2. Tachycardic. I do not appreciate any murmur, gallop, or rub at this time. LUNGS: Bilateral rhonchi, right greater than left. ABDOMEN: Soft, nontender, and nondistended. Presence of a G-tube. Positive bowel sounds. EXTREMITIES: There is no evidence of edema, clubbing, or cyanosis. FRANCISCO SPAIN Jul 09, 2017 15:57
--- NOTE | 2017-07-09 16:39 | Pulmonology Progress Note ---
Assessment/Plan Assessment/Plan 1. Respiratory failure. 2. Sepsis with shock. 3. Pneumonia. 4. Anuria, resolved 5. Prostate cancer with suprapubic catheter. 6. Severe Alzheimer dementia. 7. Severe protein-calorie malnutrition. 8. Anemia. 9. Possible acute myocardial infarction. 10. Azotemia. 11. Hyperglycemia. not tolerating weaning CXR tomorrow vent support, not weanable yet, high spont RR, good TV cont rx adjust abx per ID prognosis guarded may need trach if not weanable next week Subjective ROS Limited/Unobtainable: Yes Constitutional: Denies: fever Allergies: Coded Allergies: No Known Allergies (Verified , 09/26/12) Objective Last 24 Hour Vital Signs Date Time Temp Pulse Resp B/P (MAP) Pulse Ox O2 Delivery O2 Flow Rate FiO2 07/09/17 15:00 89 21 113/56 100 Mechanical Ventilator 35 07/09/17 14:46 86 19 35 07/09/17 14:00 88 25 122/66 100 Mechanical Ventilator 35 07/09/17 13:00 92 26 121/59 100 Mechanical Ventilator 35 07/09/17 12:34 124 23 35 07/09/17 12:00 106 07/09/17 12:00 98.6 108 25 141/91 100 Mechanical Ventilator 35 07/09/17 12:00 35 07/09/17 11:30 110 26 125/80 100 Mechanical Ventilator 35 07/09/17 11:10 105 28 35 07/09/17 11:00 103 26 132/71 100 Mechanical Ventilator 35 07/09/17 10:30 89 18 85/42 95 Mechanical Ventilator 35 07/09/17 10:20 92 30 07/09/17 10:00 98 28 116/68 100 Mechanical Ventilator 35 07/09/17 09:00 87 18 118/69 100 Mechanical Ventilator 35 07/09/17 08:30 100 07/09/17 08:30 90 34 35 07/09/17 08:00 90 07/09/17 08:00 98.8 90 17 98/55 100 Mechanical Ventilator 35 07/09/17 07:26 95 34 35 07/09/17 06:59 92 23 92/56 100 Mechanical Ventilator 35 07/09/17 06:00 90 18 93/52 100 Mechanical Ventilator 35 07/09/17 05:20 94 15 35 07/09/17 05:00 88 30 110/59 96 Mechanical Ventilator 35 07/09/17 04:04 35 07/09/17 04:04 82 07/09/17 04:00 98.9 85 20 109/60 100 Mechanical Ventilator 35 07/09/17 03:00 82 20 102/65 100 Mechanical Ventilator 35 07/09/17 02:33 95 25 35 07/09/17 02:00 83 25 120/65 100 Mechanical Ventilator 35 07/09/17 01:00 80 20 97/52 100 Mechanical Ventilator 35 07/09/17 00:36 75 15 35 07/09/17 00:06 99.5 88 22 120/69 99 Mechanical Ventilator 35 07/09/17 00:02 35 07/08/17 23:57 75 07/08/17 23:00 75 18 89/49 99 Mechanical Ventilator 35 07/08/17 22:36 67 16 35 07/08/17 22:00 89 21 110/58 100 Mechanical Ventilator 35 07/08/17 21:07 89 25 35 07/08/17 21:00 83 20 110/58 100 Mechanical Ventilator 35 07/08/17 20:00 86 07/08/17 20:00 35 07/08/17 20:00 98.2 86 20 119/68 100 Mechanical Ventilator 35 07/08/17 19:27 84 20 35 07/08/17 19:00 86 17 100/57 100 Mechanical Ventilator 35 07/08/17 18:00 86 20 110/58 100 Mechanical Ventilator 35 07/08/17 17:00 85 19 112/64 100 Mechanical Ventilator 35 07/08/17 16:53 94 24 35 Intake and Output 07/09/17 07/10/17 19:00 07:00 Intake Total 1047.917 ml Output Total 740 ml Balance 307.917 ml IV Total 607.917 ml Tube Feeding 440 ml Output Urine Total 740 ml Objective G tube, suprapubic cath General Appearance: no acute distress, cachetic Respiratory/Chest: rhonchi Cardiovascular: normal rate Current Medications Medications (Trade) Dose Ordered Sig/Matt Route PRN Reason Start Time Stop Time Status Last Admin Dose Admin Acetaminophen (Tylenol) 650 mg Q4H PRN GT Mild Pain (1-3) 07/02/17 19:00 08/01/17 18:59 07/05/17 09:12 Acetaminophen/ Hydrocodone Bitart ([place] 5/325) 1 tab QID PRN ORAL for moderate pain (4-6) 07/03/17 18:45 07/10/17 18:44 Aspirin (ASA) 81 mg DAILY GT 07/03/17 09:00 08/02/17 08:59 07/09/17 08:17 Chlorhexidine Gluconate (Mari-Hex 2%) 1 applic DAILY@2000 TOPIC 07/03/17 20:00 08/02/17 19:59 07/08/17 20:22 Dextrose (Dextrose 50%) STAT PRN IV Hypoglycemia 07/02/17 19:00 08/01/17 18:59 Enoxaparin Sodium (Lovenox) 80 mg Q12HR SUBQ 07/09/17 21:00 08/08/17 20:59 Famotidine (Pepcid I.v.) 20 mg Q12HR IVP 07/05/17 23:00 08/04/17 22:59 07/09/17 08:17 Insulin Aspart (NovoLOG) Q6HR SUBQ 07/04/17 00:00 08/01/17 20:59 07/09/17 13:47 Insulin Detemir (Levemir) 8 units BID SUBQ 07/03/17 22:00 08/02/17 21:59 07/09/17 08:28 Lorazepam (Ativan 2mg/ml 1ml) 0.5 mg Q3HR PRN IV For Anxiety 07/03/17 18:30 07/10/17 18:29 07/07/17 11:12 Midodrine (Pro-Amatine) 10 mg THREE TIMES A DAY GT 07/03/17 09:00 08/02/17 08:59 07/09/17 13:45 Norepinephrine Bitartrate 4 mg/ Dextrose 250 ml @ 0 mls/hr Q24H IV 07/02/17 21:31 08/01/17 21:30 07/05/17 10:12 Ondansetron HCl (Zofran) 4 mg Q6H PRN GT Nausea & Vomiting 07/02/17 19:00 08/01/17 18:59 Pantoprazole (Protonix) 40 mg DAILY IV 07/03/17 09:00 08/02/17 08:59 07/09/17 08:16 Piperacillin Sod/ Tazobactam Sod 3.375 gm/Dextrose 55 ml @ 13.75 mls/ hr EVERY 8 HOURS IVPB 07/02/17 23:00 07/12/17 22:59 07/09/17 13:44 Sodium Chloride 1,000 ml @ 100 mls/hr Q10H IVLG 07/02/17 20:45 08/01/17 20:44 07/09/17 14:51 Vancomycin HCl (Vanco rx to dose) 1 ea DAILY PRN MISC RX TO DOSE PROTOCOL 07/02/17 19:00 08/01/17 18:59 Vancomycin/Sodium Chloride 250 ml @ 166.667 mls/hr Q12HR@0600,1800 IVPB 07/08/17 18:00 07/13/17 17:59 07/09/17 06:17 Vitamin A/Vitamin D (A & D Oint) 1 applic EVERY 12 HOURS TOPIC 07/04/17 21:00 08/03/17 20:59 07/09/17 08:38 SABAS KNOTT Jul 09, 2017 16:39
[2017-07-09 18:00] LABS: BASOPHILS % (AUTO) 1.3 % (0.0-2.0); EOSINOPHILS % (AUTO) 10.6 % (0.0-3.0); LYMPHOCYTES % (AUTO) 15.4 % (20.0-45.0); MEAN CORPUSCULAR HEMOGLOBIN 28.3 PG (27.0-31.0); MEAN CORPUSCULAR HGB CONC 31.1 G/DL (32.0-36.0); MEAN CORPUSCULAR VOLUME 91 FL (80-99); MEAN PLATELET VOLUME 7.3 FL (6.5-10.1); MONOCYTES % (AUTO) 10.1 % (1.0-10.0); NEUTROPHILS % (AUTO) 62.6 % (45.0-75.0); PLATELET COUNT 376 K/UL (150-450); RED BLOOD COUNT 3.16 M/UL (4.70-6.10); RED CELL DISTRIBUTION WIDTH 12.9 % (11.6-14.8); WHITE BLOOD COUNT 8.7 K/UL (4.8-10.8)
[2017-07-09 18:33] LABS: ALANINE AMINOTRANSFERASE 9 U/L (12-78); ALBUMIN/GLOBULIN RATIO 0.3 (1.0-2.7); ANION GAP 5 mmol/L (5-15); ASPARTATE AMINO TRANSFERASE 10 U/L (15-37); CALCIUM 8.4 MG/DL (8.5-10.1); CARBON DIOXIDE 28 MMOL/L (21-32); CHLORIDE 109 MMOL/L (98-107); CREATININE 0.8 MG/DL (0.55-1.30); POTASSIUM 3.8 MMOL/L (3.5-5.1); SODIUM 142 MMOL/L (136-145); TOTAL PROTEIN 5.7 G/DL (6.4-8.2)
[2017-07-09] MEDS: Dyna-Hex 2% Top Sol 2oz TOPIC SCH (19:32)
[2017-07-09] MEDS: Enoxaparin 80mg Inj SUBQ SCH (20:44)
--- NOTE | 2017-07-09 20:45 | General Progress Note ---
Assessment/Plan Problem List: (1) COPD (chronic obstructive pulmonary disease) ICD Codes: J44.9 - Chronic obstructive pulmonary disease SNOMED: 03619774 (2) Suprapubic catheter ICD Codes: Z93.59 - Other cystostomy status SNOMED: 076049560, 109120804 (3) Catheter-associated urinary tract infection ICD Codes: T83.511A - Infection and inflammatory reaction due to indwelling urethral catheter, initial encounter; N39.0 - Urinary tract infection, site not specified SNOMED: 658492668 (4) Anemia ICD Codes: D64.9 - Anemia, unspecified SNOMED: 126776930 (5) Dementia ICD Codes: F03.90 - Unspecified dementia without behavioral disturbance SNOMED: 73445927 (6) Seizure ICD Codes: R56.9 - Unspecified convulsions SNOMED: 21276107 (7) Prostate cancer ICD Codes: C61 - Malignant neoplasm of prostate SNOMED: 864974811 (8) COPD (chronic obstructive pulmonary disease) ICD Codes: J44.9 - Chronic obstructive pulmonary disease, unspecified SNOMED: 44992645 (9) Respiratory distress ICD Codes: R06.03 - Acute respiratory distress SNOMED: 259936528 (10) Sepsis ICD Codes: A41.9 - Sepsis, unspecified organism SNOMED: 18759905 Status: progressing Assessment/Plan resp failure intubated lyte abnormaility copd asp pna dehyration sepsis not improving no wheezing check labs and meds Subjective ROS Limited/Unobtainable: Yes Allergies: Coded Allergies: No Known Allergies (Verified , 09/26/12) Objective Last 24 Hour Vital Signs Date Time Temp Pulse Resp B/P (MAP) Pulse Ox O2 Delivery O2 Flow Rate FiO2 07/09/17 19:00 80 17 90/49 100 Mechanical Ventilator 35 07/09/17 18:45 82 17 35 07/09/17 18:00 90 25 131/74 100 Mechanical Ventilator 35 07/09/17 17:00 87 20 119/59 100 Mechanical Ventilator 35 07/09/17 16:56 92 34 35 07/09/17 16:00 35 07/09/17 16:00 88 07/09/17 16:00 98.8 90 19 122/85 100 Mechanical Ventilator 35 07/09/17 15:00 89 21 113/56 100 Mechanical Ventilator 35 07/09/17 14:46 86 19 35 07/09/17 14:00 88 25 122/66 100 Mechanical Ventilator 35 07/09/17 13:00 92 26 121/59 100 Mechanical Ventilator 35 07/09/17 12:34 124 23 35 07/09/17 12:00 106 07/09/17 12:00 98.6 108 25 141/91 100 Mechanical Ventilator 35 07/09/17 12:00 35 07/09/17 11:30 110 26 125/80 100 Mechanical Ventilator 35 07/09/17 11:10 105 28 35 07/09/17 11:00 103 26 132/71 100 Mechanical Ventilator 35 07/09/17 10:30 89 18 85/42 95 Mechanical Ventilator 35 07/09/17 10:20 92 30 07/09/17 10:00 98 28 116/68 100 Mechanical Ventilator 35 07/09/17 09:00 87 18 118/69 100 Mechanical Ventilator 35 07/09/17 08:30 100 07/09/17 08:30 90 34 35 07/09/17 08:00 90 07/09/17 08:00 98.8 90 17 98/55 100 Mechanical Ventilator 35 07/09/17 07:26 95 34 35 07/09/17 06:59 92 23 92/56 100 Mechanical Ventilator 35 07/09/17 06:00 90 18 93/52 100 Mechanical Ventilator 35 07/09/17 05:20 94 15 35 07/09/17 05:00 88 30 110/59 96 Mechanical Ventilator 35 07/09/17 04:04 35 07/09/17 04:04 82 07/09/17 04:00 98.9 85 20 109/60 100 Mechanical Ventilator 35 07/09/17 03:00 82 20 102/65 100 Mechanical Ventilator 35 07/09/17 02:33 95 25 35 07/09/17 02:00 83 25 120/65 100 Mechanical Ventilator 35 07/09/17 01:00 80 20 97/52 100 Mechanical Ventilator 35 07/09/17 00:36 75 15 35 07/09/17 00:06 99.5 88 22 120/69 99 Mechanical Ventilator 35 07/09/17 00:02 35 07/08/17 23:57 75 07/08/17 23:00 75 18 89/49 99 Mechanical Ventilator 35 07/08/17 22:36 67 16 35 07/08/17 22:00 89 21 110/58 100 Mechanical Ventilator 35 07/08/17 21:07 89 25 35 07/08/17 21:00 83 20 110/58 100 Mechanical Ventilator 35 Intake and Output 07/09/17 07/10/17 19:00 07:00 Intake Total 1670.001 ml Output Total 1160 ml Balance 510.001 ml IV Total 1010.001 ml Tube Feeding 660 ml Output Urine Total 1160 ml Laboratory Tests 07/09/17 17:40: White Blood Count 8.7, Red Blood Count 3.16L, Hemoglobin 8.9L, Hematocrit 28.8L , Mean Corpuscular Volume 91, Mean Corpuscular Hemoglobin 28.3, Mean Corpuscular Hemoglobin Concent 31.1L, Red Cell Distribution Width 12.9, Platelet Count 376, Mean Platelet Volume 7.3, Neutrophils (%) (Auto) 62.6, Lymphocytes (%) (Auto) 15.4L, Monocytes (%) (Auto) 10.1H, Eosinophils (%) (Auto ) 10.6H, Basophils (%) (Auto) 1.3, Stool Occult Blood [Pending], Sodium Level 142, Potassium Level 3.8, Chloride Level 109H, Carbon Dioxide Level 28, Anion Gap 5, Blood Urea Nitrogen 15, Creatinine 0.8, Estimat Glomerular Filtration Rate , Glucose Level 114H, Calcium Level 8.4L, Total Bilirubin 0.2, Aspartate Amino Transf (AST/SGOT) 10L, Alanine Aminotransferase (ALT/SGPT) 9L, Alkaline Phosphatase 95, Total Protein 5.7L, Albumin 1.4L, Globulin 4.3, Albumin/ Globulin Ratio 0.3L Height (Feet): 6 Weight (Pounds): 179 Cardiovascular: normal rate Respiratory/Chest: lungs clear Abdomen: soft Sary Oakes MD Jul 09, 2017 20:45
--- NOTE | 2017-07-09 21:30 | General Progress Note ---
Assessment/Plan Assessment/Plan Assessment - OBS - dysphagia / GT - prostate CA - anemia - worse - s/p Suprapubic catheter - DM - Leukocytosis Recommendations - GT feeding - follow residuals - Elevate HOB - monitor H&H - check OB - PPI - abx Subjective Allergies: Coded Allergies: No Known Allergies (Verified , 09/26/12) Subjective above noted d/w RN tolerating feeds non communicative Objective Last 24 Hour Vital Signs Date Time Temp Pulse Resp B/P (MAP) Pulse Ox O2 Delivery O2 Flow Rate FiO2 07/09/17 21:00 86 24 97/45 100 Mechanical Ventilator 35 07/09/17 20:52 78 18 35 07/09/17 20:00 98.7 87 25 132/64 100 Mechanical Ventilator 35 07/09/17 19:00 80 17 90/49 100 Mechanical Ventilator 35 07/09/17 18:45 82 17 35 07/09/17 18:00 90 25 131/74 100 Mechanical Ventilator 35 07/09/17 17:00 87 20 119/59 100 Mechanical Ventilator 35 07/09/17 16:56 92 34 35 07/09/17 16:00 35 07/09/17 16:00 88 07/09/17 16:00 98.8 90 19 122/85 100 Mechanical Ventilator 35 07/09/17 15:00 89 21 113/56 100 Mechanical Ventilator 35 07/09/17 14:46 86 19 35 07/09/17 14:00 88 25 122/66 100 Mechanical Ventilator 35 07/09/17 13:00 92 26 121/59 100 Mechanical Ventilator 35 07/09/17 12:34 124 23 35 07/09/17 12:00 106 07/09/17 12:00 98.6 108 25 141/91 100 Mechanical Ventilator 35 07/09/17 12:00 35 07/09/17 11:30 110 26 125/80 100 Mechanical Ventilator 35 07/09/17 11:10 105 28 35 07/09/17 11:00 103 26 132/71 100 Mechanical Ventilator 35 07/09/17 10:30 89 18 85/42 95 Mechanical Ventilator 35 07/09/17 10:20 92 30 07/09/17 10:00 98 28 116/68 100 Mechanical Ventilator 35 07/09/17 09:00 87 18 118/69 100 Mechanical Ventilator 35 07/09/17 08:30 100 07/09/17 08:30 90 34 35 07/09/17 08:00 90 07/09/17 08:00 98.8 90 17 98/55 100 Mechanical Ventilator 35 07/09/17 07:26 95 34 35 07/09/17 06:59 92 23 92/56 100 Mechanical Ventilator 35 07/09/17 06:00 90 18 93/52 100 Mechanical Ventilator 35 07/09/17 05:20 94 15 35 07/09/17 05:00 88 30 110/59 96 Mechanical Ventilator 35 07/09/17 04:04 35 07/09/17 04:04 82 07/09/17 04:00 98.9 85 20 109/60 100 Mechanical Ventilator 35 07/09/17 03:00 82 20 102/65 100 Mechanical Ventilator 35 07/09/17 02:33 95 25 35 07/09/17 02:00 83 25 120/65 100 Mechanical Ventilator 35 07/09/17 01:00 80 20 97/52 100 Mechanical Ventilator 35 07/09/17 00:36 75 15 35 07/09/17 00:06 99.5 88 22 120/69 99 Mechanical Ventilator 35 07/09/17 00:02 35 07/08/17 23:57 75 07/08/17 23:00 75 18 89/49 99 Mechanical Ventilator 35 07/08/17 22:36 67 16 35 07/08/17 22:00 89 21 110/58 100 Mechanical Ventilator 35 Intake and Output 07/09/17 07/10/17 19:00 07:00 Intake Total 1670.001 ml 110 ml Output Total 1160 ml 110 ml Balance 510.001 ml 0 ml IV Total 1010.001 ml Tube Feeding 660 ml 110 ml Output Urine Total 1160 ml 110 ml Laboratory Tests 07/09/17 17:40: White Blood Count 8.7, Red Blood Count 3.16L, Hemoglobin 8.9L, Hematocrit 28.8L , Mean Corpuscular Volume 91, Mean Corpuscular Hemoglobin 28.3, Mean Corpuscular Hemoglobin Concent 31.1L, Red Cell Distribution Width 12.9, Platelet Count 376, Mean Platelet Volume 7.3, Neutrophils (%) (Auto) 62.6, Lymphocytes (%) (Auto) 15.4L, Monocytes (%) (Auto) 10.1H, Eosinophils (%) (Auto ) 10.6H, Basophils (%) (Auto) 1.3, Stool Occult Blood [Pending], Sodium Level 142, Potassium Level 3.8, Chloride Level 109H, Carbon Dioxide Level 28, Anion Gap 5, Blood Urea Nitrogen 15, Creatinine 0.8, Estimat Glomerular Filtration Rate , Glucose Level 114H, Calcium Level 8.4L, Total Bilirubin 0.2, Aspartate Amino Transf (AST/SGOT) 10L, Alanine Aminotransferase (ALT/SGPT) 9L, Alkaline Phosphatase 95, Total Protein 5.7L, Albumin 1.4L, Globulin 4.3, Albumin/ Globulin Ratio 0.3L Height (Feet): 6 Weight (Pounds): 179 Objective Eldely WM NCAT, (+) ETT supple, (+ ) IJ catheter CTA RR soft flat, (+) GT, (+) SP catheter no edema OBS CURTIS GARCIA Jul 09, 2017 21:30
[2017-07-10] VITALS (23 sets, daily range): BP systolic 88–155; BP diastolic 41–94
[2017-07-10] MEDS: Vancomycin 750mg/NS 250ml IVPB SCH ×2 (05:40→17:17)
[2017-07-10] MEDS: Zoysn 3.37gm in D5W 55ml IVPB SCH ×3 (05:40→21:44)
[2017-07-10] MEDS: NovoLOG Insulin Flexpen SUBQ SCH ×4 (05:41→23:56)
[2017-07-10 06:44] LABS: EOSINOPHILS % (AUTO) 10.9 % (0.0-3.0); LYMPHOCYTES % (AUTO) 18.5 % (20.0-45.0); MEAN CORPUSCULAR HEMOGLOBIN 31.2 PG (27.0-31.0); MEAN CORPUSCULAR HGB CONC 33.9 G/DL (32.0-36.0); MEAN CORPUSCULAR VOLUME 92 FL (80-99); MEAN PLATELET VOLUME 7.5 FL (6.5-10.1); MONOCYTES % (AUTO) 8.8 % (1.0-10.0); NEUTROPHILS % (AUTO) 60.9 % (45.0-75.0); PLATELET COUNT 385 K/UL (150-450); RED BLOOD COUNT 3.09 M/UL (4.70-6.10); RED CELL DISTRIBUTION WIDTH 13.1 % (11.6-14.8); WHITE BLOOD COUNT 7.4 K/UL (4.8-10.8)
[2017-07-10 06:53] LABS: ALANINE AMINOTRANSFERASE 8 U/L (12-78); ALBUMIN/GLOBULIN RATIO 0.3 (1.0-2.7); ANION GAP 7 mmol/L (5-15); ASPARTATE AMINO TRANSFERASE 11 U/L (15-37); CALCIUM 8.7 MG/DL (8.5-10.1); CARBON DIOXIDE 29 MMOL/L (21-32); CHLORIDE 107 MMOL/L (98-107); CREATININE 0.7 MG/DL (0.55-1.30); CRP QUANT 5.4 mg/dL (0.00-0.90); MAGNESIUM 1.7 MG/DL (1.8-2.4); PHOSPHORUS 3.5 MG/DL (2.5-4.9); POTASSIUM 3.8 MMOL/L (3.5-5.1); SODIUM 142 MMOL/L (136-145); TOTAL PROTEIN 5.8 G/DL (6.4-8.2); URIC ACID 2.4 MG/DL (2.6-7.2)
--- NOTE | 2017-07-10 07:15 | General Progress Note ---
Assessment/Plan Problem List: (1) Diabetes mellitus ICD Codes: E11.9 - Type 2 diabetes mellitus without complications SNOMED: 84102576 (2) ATN (acute tubular necrosis) ICD Codes: N17.0 - Acute kidney failure with tubular necrosis SNOMED: 59910853 (3) G tube feedings ICD Codes: Z93.1 - Gastrostomy status SNOMED: 161633552, 742352497 (4) Dementia ICD Codes: F03.90 - Unspecified dementia without behavioral disturbance SNOMED: 99611550 (5) Respiratory distress ICD Codes: R06.03 - Acute respiratory distress SNOMED: 098978897 (6) Suprapubic catheter ICD Codes: Z93.59 - Other cystostomy status SNOMED: 076592280, 686762504 Assessment/Plan increase Levemir to 10 units bid continue Novolog sliding scale Subjective ROS Limited/Unobtainable: Yes Allergies: Coded Allergies: No Known Allergies (Verified , 09/26/12) Subjective events noted intubated in ICU on TF Objective Last 24 Hour Vital Signs Date Time Temp Pulse Resp B/P (MAP) Pulse Ox O2 Delivery O2 Flow Rate FiO2 07/10/17 07:00 90 20 118/60 100 Mechanical Ventilator 35 07/10/17 06:00 100 20 132/68 100 Mechanical Ventilator 35 07/10/17 05:24 97 25 35 07/10/17 05:00 100 22 135/67 100 Mechanical Ventilator 35 07/10/17 04:00 99.2 97 20 139/70 100 Mechanical Ventilator 35 07/10/17 04:00 35 07/10/17 03:56 97 07/10/17 03:00 86 21 105/57 100 Mechanical Ventilator 35 07/10/17 03:00 91 28 35 07/10/17 02:00 78 18 96/45 100 Mechanical Ventilator 35 07/10/17 01:00 74 17 88/41 100 Mechanical Ventilator 35 07/10/17 00:55 76 16 35 07/10/17 00:49 76 07/10/17 00:00 99.8 91 23 111/52 99 Mechanical Ventilator 35 07/10/17 00:00 35 07/09/17 23:00 87 22 120/79 100 Mechanical Ventilator 35 07/09/17 22:32 83 19 35 07/09/17 22:00 80 17 108/58 100 Mechanical Ventilator 35 07/09/17 21:31 119/58 07/09/17 21:00 86 24 97/45 100 Mechanical Ventilator 35 07/09/17 20:52 78 18 35 07/09/17 20:00 98.7 87 25 132/64 100 Mechanical Ventilator 35 07/09/17 20:00 35 07/09/17 19:47 85 07/09/17 19:00 80 17 90/49 100 Mechanical Ventilator 35 07/09/17 18:45 82 17 35 07/09/17 18:00 90 25 131/74 100 Mechanical Ventilator 35 07/09/17 17:00 87 20 119/59 100 Mechanical Ventilator 35 07/09/17 16:56 92 34 35 07/09/17 16:00 35 07/09/17 16:00 88 07/09/17 16:00 98.8 90 19 122/85 100 Mechanical Ventilator 35 07/09/17 15:00 89 21 113/56 100 Mechanical Ventilator 35 07/09/17 14:46 86 19 35 07/09/17 14:00 88 25 122/66 100 Mechanical Ventilator 35 07/09/17 13:00 92 26 121/59 100 Mechanical Ventilator 35 07/09/17 12:34 124 23 35 07/09/17 12:00 106 07/09/17 12:00 98.6 108 25 141/91 100 Mechanical Ventilator 35 07/09/17 12:00 35 07/09/17 11:30 110 26 125/80 100 Mechanical Ventilator 35 07/09/17 11:10 105 28 35 07/09/17 11:00 103 26 132/71 100 Mechanical Ventilator 35 07/09/17 10:30 89 18 85/42 95 Mechanical Ventilator 35 07/09/17 10:20 92 30 07/09/17 10:00 98 28 116/68 100 Mechanical Ventilator 35 07/09/17 09:00 87 18 118/69 100 Mechanical Ventilator 35 07/09/17 08:30 100 07/09/17 08:30 90 34 35 07/09/17 08:00 90 07/09/17 08:00 98.8 90 17 98/55 100 Mechanical Ventilator 35 07/09/17 07:26 95 34 35 Laboratory Tests 07/09/17 17:40: White Blood Count 8.7, Red Blood Count 3.16L, Hemoglobin 8.9L, Hematocrit 28.8L , Mean Corpuscular Volume 91, Mean Corpuscular Hemoglobin 28.3, Mean Corpuscular Hemoglobin Concent 31.1L, Red Cell Distribution Width 12.9, Platelet Count 376, Mean Platelet Volume 7.3, Neutrophils (%) (Auto) 62.6, Lymphocytes (%) (Auto) 15.4L, Monocytes (%) (Auto) 10.1H, Eosinophils (%) (Auto ) 10.6H, Basophils (%) (Auto) 1.3, Stool Occult Blood [Pending], Sodium Level 142, Potassium Level 3.8, Chloride Level 109H, Carbon Dioxide Level 28, Anion Gap 5, Blood Urea Nitrogen 15, Creatinine 0.8, Estimat Glomerular Filtration Rate , Glucose Level 114H, Calcium Level 8.4L, Total Bilirubin 0.2, Aspartate Amino Transf (AST/SGOT) 10L, Alanine Aminotransferase (ALT/SGPT) 9L, Alkaline Phosphatase 95, Total Protein 5.7L, Albumin 1.4L, Globulin 4.3, Albumin/ Globulin Ratio 0.3L 07/10/17 04:20: White Blood Count 7.4, Red Blood Count 3.09L, Hemoglobin 9.6L, Hematocrit 28.4L , Mean Corpuscular Volume 92, Mean Corpuscular Hemoglobin 31.2H, Mean Corpuscular Hemoglobin Concent 33.9, Red Cell Distribution Width 13.1, Platelet Count 385, Mean Platelet Volume 7.5, Neutrophils (%) (Auto) 60.9, Lymphocytes (% ) (Auto) 18.5L, Monocytes (%) (Auto) 8.8, Eosinophils (%) (Auto) 10.9H, Basophils (%) (Auto) 1.0, Sodium Level 142, Potassium Level 3.8, Chloride Level 107, Carbon Dioxide Level 29, Anion Gap 7, Blood Urea Nitrogen 15, Creatinine 0.7, Estimat Glomerular Filtration Rate , Glucose Level 170H, Calcium Level 8.7 , Total Bilirubin 0.3, Aspartate Amino Transf (AST/SGOT) 11L, Alanine Aminotransferase (ALT/SGPT) 8L, Alkaline Phosphatase 94, Total Protein 5.8L, Albumin 1.5L, Globulin 4.3, Albumin/Globulin Ratio 0.3L, Uric Acid 2.4L, Phosphorus Level 3.5, Magnesium Level 1.7L, Troponin I 0.055, C-Reactive Protein , Quantitative 5.4H, Pro-B-Type Natriuretic Peptide 05328Q Height (Feet): 6 Weight (Pounds): 191 General Appearance: moderate distress EENT: pale conjunctivae Neck: normal alignment Cardiovascular: normal rate Respiratory/Chest: decreased breath sounds Abdomen: normal bowel sounds Edema: 1+ Arm (L), 1+ Arm (R), 1+ Leg (L), 1+ Leg (R), 1+ Pedal (L), 1+ Pedal ( R), 1+ Generalized Objective Current Medications Medications (Trade) Dose Ordered Sig/Matt Route PRN Reason Start Time Stop Time Status Last Admin Dose Admin Acetaminophen (Tylenol) 650 mg Q4H PRN GT Mild Pain (1-3) 07/02/17 19:00 08/01/17 18:59 07/05/17 09:12 Acetaminophen/ Hydrocodone Bitart ([place] 5/325) 1 tab QID PRN ORAL for moderate pain (4-6) 07/03/17 18:45 07/10/17 18:44 Aspirin (ASA) 81 mg DAILY GT 07/03/17 09:00 08/02/17 08:59 07/09/17 08:17 Chlorhexidine Gluconate (Mari-Hex 2%) 1 applic DAILY@2000 TOPIC 07/03/17 20:00 08/02/17 19:59 07/09/17 19:32 Dextrose (Dextrose 50%) STAT PRN IV Hypoglycemia 07/02/17 19:00 08/01/17 18:59 Enoxaparin Sodium (Lovenox) 80 mg Q12HR SUBQ 07/09/17 21:00 08/08/17 20:59 07/09/17 20:44 Famotidine (Pepcid I.v.) 20 mg Q12HR IVP 07/05/17 23:00 08/04/17 22:59 07/09/17 20:43 Insulin Aspart (NovoLOG) Q6HR SUBQ 07/04/17 00:00 08/01/17 20:59 07/10/17 05:41 Insulin Detemir (Levemir) 8 units BID SUBQ 07/03/17 22:00 08/02/17 21:59 07/09/17 17:11 Lorazepam (Ativan 2mg/ml 1ml) 0.5 mg Q3HR PRN IV For Anxiety 07/03/17 18:30 07/10/17 18:29 07/07/17 11:12 Midodrine (Pro-Amatine) 10 mg THREE TIMES A DAY GT 07/03/17 09:00 08/02/17 08:59 07/09/17 17:10 Norepinephrine Bitartrate 4 mg/ Dextrose 250 ml @ 0 mls/hr Q24H IV 07/02/17 21:31 08/01/17 21:30 07/05/17 10:12 Ondansetron HCl (Zofran) 4 mg Q6H PRN GT Nausea & Vomiting 07/02/17 19:00 08/01/17 18:59 Pantoprazole (Protonix) 40 mg DAILY IV 07/03/17 09:00 08/02/17 08:59 07/09/17 08:16 Piperacillin Sod/ Tazobactam Sod 3.375 gm/Dextrose 55 ml @ 13.75 mls/ hr EVERY 8 HOURS IVPB 07/02/17 23:00 07/12/17 22:59 07/10/17 05:40 Vancomycin HCl (Vanco rx to dose) 1 ea DAILY PRN MISC RX TO DOSE PROTOCOL 07/02/17 19:00 08/01/17 18:59 Vancomycin/Sodium Chloride 250 ml @ 166.667 mls/hr Q12HR@0600,1800 IVPB 07/08/17 18:00 07/13/17 17:59 07/10/17 05:40 Vitamin A/Vitamin D (A & D Oint) 1 applic EVERY 12 HOURS TOPIC 07/04/17 21:00 08/03/17 20:59 07/09/17 20:43 Item Value Date Time Bedside Blood Glucose 204 mg/dl H 07/10/17 0542 Bedside Blood Glucose 144 mg/dl H 07/09/17 2343 Bedside Blood Glucose 119 mg/dl 07/09/17 1800 Bedside Blood Glucose 157 mg/dl H 07/09/17 1347 MARIA EUGENIA AUGUTS Jul 10, 2017 07:15
[2017-07-10] MEDS: Midodrine 10mg tab GT SCH ×3 (08:25→17:20)
[2017-07-10] MEDS: Aspirin Baby 81mg GT SCH (08:25)
[2017-07-10] MEDS: Pantoprazole Inj IV SCH (08:26)
[2017-07-10] MEDS: Vitamin A&D Oint 2oz Tube TOPIC SCH ×2 (08:26→20:51)
[2017-07-10] MEDS: Enoxaparin 80mg Inj SUBQ SCH ×2 (08:53→20:52)
--- NOTE | 2017-07-10 09:48 | Nephrology Progress Note ---
Assessment/Plan Problem List: (1) Respiratory distress (2) Suprapubic catheter (3) Septic shock (4) Electrolyte abnormality Assessment HypoKalemia- Respiratory Failure on Vent Septic shock / Pneumonia / UTI Oliguria due to low BP Prostate cancer with suprapubic catheter. Severe Alzheimer dementia. Severe protein-calorie malnutrition. Anemia. Hyperglycemia. Plan Plan: no labs since 07/06 FLuid challenge- Cortisol level wnl Antibiotics pulmonary support K supplements Per order Subjective ROS Limited/Unobtainable: Yes Objective Objective Last 24 Hour Vital Signs Date Time Temp Pulse Resp B/P (MAP) Pulse Ox O2 Delivery O2 Flow Rate FiO2 07/10/17 09:27 93 26 35 07/10/17 08:00 99.0 96 20 140/80 100 Mechanical Ventilator 35 07/10/17 08:00 35 07/10/17 07:23 88 19 35 07/10/17 07:00 90 20 118/60 100 Mechanical Ventilator 35 07/10/17 06:00 100 20 132/68 100 Mechanical Ventilator 35 07/10/17 05:24 97 25 35 07/10/17 05:00 100 22 135/67 100 Mechanical Ventilator 35 07/10/17 04:00 99.2 97 20 139/70 100 Mechanical Ventilator 35 07/10/17 04:00 35 07/10/17 03:56 97 07/10/17 03:00 86 21 105/57 100 Mechanical Ventilator 35 07/10/17 03:00 91 28 35 07/10/17 02:00 78 18 96/45 100 Mechanical Ventilator 35 07/10/17 01:00 74 17 88/41 100 Mechanical Ventilator 35 07/10/17 00:55 76 16 35 07/10/17 00:49 76 07/10/17 00:00 99.8 91 23 111/52 99 Mechanical Ventilator 35 07/10/17 00:00 35 07/09/17 23:00 87 22 120/79 100 Mechanical Ventilator 35 07/09/17 22:32 83 19 35 07/09/17 22:00 80 17 108/58 100 Mechanical Ventilator 35 07/09/17 21:31 119/58 07/09/17 21:00 86 24 97/45 100 Mechanical Ventilator 35 07/09/17 20:52 78 18 35 07/09/17 20:00 98.7 87 25 132/64 100 Mechanical Ventilator 35 07/09/17 20:00 35 12/15/17 19:47 85 07/09/17 19:00 80 17 90/49 100 Mechanical Ventilator 35 07/09/17 18:45 82 17 35 07/09/17 18:00 90 25 131/74 100 Mechanical Ventilator 35 07/09/17 17:00 87 20 119/59 100 Mechanical Ventilator 35 07/09/17 16:56 92 34 35 07/09/17 16:00 35 07/09/17 16:00 88 07/09/17 16:00 98.8 90 19 122/85 100 Mechanical Ventilator 35 07/09/17 15:00 89 21 113/56 100 Mechanical Ventilator 35 07/09/17 14:46 86 19 35 07/09/17 14:00 88 25 122/66 100 Mechanical Ventilator 35 07/09/17 13:00 92 26 121/59 100 Mechanical Ventilator 35 07/09/17 12:34 124 23 35 07/09/17 12:00 106 07/09/17 12:00 98.6 108 25 141/91 100 Mechanical Ventilator 35 07/09/17 12:00 35 07/09/17 11:30 110 26 125/80 100 Mechanical Ventilator 35 07/09/17 11:10 105 28 35 07/09/17 11:00 103 26 132/71 100 Mechanical Ventilator 35 07/09/17 10:30 89 18 85/42 95 Mechanical Ventilator 35 07/09/17 10:20 92 30 07/09/17 10:00 98 28 116/68 100 Mechanical Ventilator 35 Intake and Output 07/10/17 07/11/17 19:00 07:00 Intake Total 138.333 ml Output Total 100 ml Balance 38.333 ml IV Total 83.333 ml Tube Feeding 55 ml Output Urine Total 100 ml # Bowel Movements 1 Laboratory Tests 07/09/17 17:40: White Blood Count 8.7, Red Blood Count 3.16L, Hemoglobin 8.9L, Hematocrit 28.8L , Mean Corpuscular Volume 91, Mean Corpuscular Hemoglobin 28.3, Mean Corpuscular Hemoglobin Concent 31.1L, Red Cell Distribution Width 12.9, Platelet Count 376, Mean Platelet Volume 7.3, Neutrophils (%) (Auto) 62.6, Lymphocytes (%) (Auto) 15.4L, Monocytes (%) (Auto) 10.1H, Eosinophils (%) (Auto ) 10.6H, Basophils (%) (Auto) 1.3, Stool Occult Blood [Pending], Sodium Level 142, Potassium Level 3.8, Chloride Level 109H, Carbon Dioxide Level 28, Anion Gap 5, Blood Urea Nitrogen 15, Creatinine 0.8, Estimat Glomerular Filtration Rate , Glucose Level 114H, Calcium Level 8.4L, Total Bilirubin 0.2, Aspartate Amino Transf (AST/SGOT) 10L, Alanine Aminotransferase (ALT/SGPT) 9L, Alkaline Phosphatase 95, Total Protein 5.7L, Albumin 1.4L, Globulin 4.3, Albumin/ Globulin Ratio 0.3L 07/10/17 04:20: White Blood Count 7.4, Red Blood Count 3.09L, Hemoglobin 9.6L, Hematocrit 28.4L , Mean Corpuscular Volume 92, Mean Corpuscular Hemoglobin 31.2H, Mean Corpuscular Hemoglobin Concent 33.9, Red Cell Distribution Width 13.1, Platelet Count 385, Mean Platelet Volume 7.5, Neutrophils (%) (Auto) 60.9, Lymphocytes (% ) (Auto) 18.5L, Monocytes (%) (Auto) 8.8, Eosinophils (%) (Auto) 10.9H, Basophils (%) (Auto) 1.0, Sodium Level 142, Potassium Level 3.8, Chloride Level 107, Carbon Dioxide Level 29, Anion Gap 7, Blood Urea Nitrogen 15, Creatinine 0.7, Estimat Glomerular Filtration Rate , Glucose Level 170H, Calcium Level 8.7 , Total Bilirubin 0.3, Aspartate Amino Transf (AST/SGOT) 11L, Alanine Aminotransferase (ALT/SGPT) 8L, Alkaline Phosphatase 94, Total Protein 5.8L, Albumin 1.5L, Globulin 4.3, Albumin/Globulin Ratio 0.3L, Uric Acid 2.4L, Phosphorus Level 3.5, Magnesium Level 1.7L, Troponin I 0.055, C-Reactive Protein , Quantitative 5.4H, Pro-B-Type Natriuretic Peptide [id number] Height (Feet): 6 Weight (Pounds): 191 General Appearance: no apparent distress EENT: other - remains on Vent Objective no other change FAITH SEARS Jul 10, 2017 09:48
[2017-07-10] MEDS: Levemir Flexpen SUBQ SCH ×2 (10:32→17:18)
--- NOTE | 2017-07-10 10:54 | General Progress Note ---
Assessment/Plan Assessment/Plan ASSESSMENT AND RECOMMENDATIONS: 1. Prostate cancer, controlled at this time. Current PSA of 5.6. With suprapubic catheter 2. Leukocytosis, secondary to underlying infection, infiltrates noted.ID following. --> wbc count has normalized. 3. Anemia, rule out gastrointestinal bleed. Ferritin wnl. 4. Sepsis resolved 5. Respiratory failure. On a vent. Pulmonology following, currently not able to wean Subjective Hematologic/Lymphatic: Reports: anemia Allergies: Coded Allergies: No Known Allergies (Verified , 09/26/12) All Systems: reviewed and negative except above Subjective Pt sleeping. H/H improved. Objective Last 24 Hour Vital Signs Date Time Temp Pulse Resp B/P (MAP) Pulse Ox O2 Delivery O2 Flow Rate FiO2 07/10/17 10:00 96 24 148/74 100 Mechanical Ventilator 35 07/10/17 09:27 93 26 35 07/10/17 09:00 93 19 136/81 100 Mechanical Ventilator 35 07/10/17 08:00 99.0 96 20 140/80 100 Mechanical Ventilator 35 07/10/17 08:00 35 07/10/17 08:00 89 07/10/17 07:23 88 19 35 07/10/17 07:00 90 20 118/60 100 Mechanical Ventilator 35 07/10/17 06:00 100 20 132/68 100 Mechanical Ventilator 35 07/10/17 05:24 97 25 35 07/10/17 05:00 100 22 135/67 100 Mechanical Ventilator 35 07/10/17 04:00 99.2 97 20 139/70 100 Mechanical Ventilator 35 07/10/17 04:00 35 07/10/17 03:56 97 07/10/17 03:00 86 21 105/57 100 Mechanical Ventilator 35 07/10/17 03:00 91 28 35 07/10/17 02:00 78 18 96/45 100 Mechanical Ventilator 35 07/10/17 01:00 74 17 88/41 100 Mechanical Ventilator 35 07/10/17 00:55 76 16 35 07/10/17 00:49 76 07/10/17 00:00 99.8 91 23 111/52 99 Mechanical Ventilator 35 07/10/17 00:00 35 07/09/17 23:00 87 22 120/79 100 Mechanical Ventilator 35 07/09/17 22:32 83 19 35 07/09/17 22:00 80 17 108/58 100 Mechanical Ventilator 35 07/09/17 21:31 119/58 07/09/17 21:00 86 24 97/45 100 Mechanical Ventilator 35 07/09/17 20:52 78 18 35 07/09/17 20:00 98.7 87 25 132/64 100 Mechanical Ventilator 35 07/09/17 20:00 35 07/09/17 19:47 85 07/09/17 19:00 80 17 90/49 100 Mechanical Ventilator 35 07/09/17 18:45 82 17 35 07/09/17 18:00 90 25 131/74 100 Mechanical Ventilator 35 07/09/17 17:00 87 20 119/59 100 Mechanical Ventilator 35 07/09/17 16:56 92 34 35 07/09/17 16:00 35 07/09/17 16:00 88 07/09/17 16:00 98.8 90 19 122/85 100 Mechanical Ventilator 35 07/09/17 15:00 89 21 113/56 100 Mechanical Ventilator 35 07/09/17 14:46 86 19 35 07/09/17 14:00 88 25 122/66 100 Mechanical Ventilator 35 07/09/17 13:00 92 26 121/59 100 Mechanical Ventilator 35 07/09/17 12:34 124 23 35 07/09/17 12:00 106 07/09/17 12:00 98.6 108 25 141/91 100 Mechanical Ventilator 35 07/09/17 12:00 35 07/09/17 11:30 110 26 125/80 100 Mechanical Ventilator 35 07/09/17 11:10 105 28 35 07/09/17 11:00 103 26 132/71 100 Mechanical Ventilator 35 Intake and Output 07/10/17 07/11/17 19:00 07:00 Intake Total 289.583 ml Output Total 275 ml Balance 14.583 ml IV Total 124.583 ml Tube Feeding 165 ml Output Urine Total 275 ml # Bowel Movements 1 Laboratory Tests 07/09/17 17:40: White Blood Count 8.7, Red Blood Count 3.16L, Hemoglobin 8.9L, Hematocrit 28.8L , Mean Corpuscular Volume 91, Mean Corpuscular Hemoglobin 28.3, Mean Corpuscular Hemoglobin Concent 31.1L, Red Cell Distribution Width 12.9, Platelet Count 376, Mean Platelet Volume 7.3, Neutrophils (%) (Auto) 62.6, Lymphocytes (%) (Auto) 15.4L, Monocytes (%) (Auto) 10.1H, Eosinophils (%) (Auto ) 10.6H, Basophils (%) (Auto) 1.3, Stool Occult Blood [Pending], Sodium Level 142, Potassium Level 3.8, Chloride Level 109H, Carbon Dioxide Level 28, Anion Gap 5, Blood Urea Nitrogen 15, Creatinine 0.8, Estimat Glomerular Filtration Rate , Glucose Level 114H, Calcium Level 8.4L, Total Bilirubin 0.2, Aspartate Amino Transf (AST/SGOT) 10L, Alanine Aminotransferase (ALT/SGPT) 9L, Alkaline Phosphatase 95, Total Protein 5.7L, Albumin 1.4L, Globulin 4.3, Albumin/ Globulin Ratio 0.3L 07/10/17 04:20: White Blood Count 7.4, Red Blood Count 3.09L, Hemoglobin 9.6L, Hematocrit 28.4L , Mean Corpuscular Volume 92, Mean Corpuscular Hemoglobin 31.2H, Mean Corpuscular Hemoglobin Concent 33.9, Red Cell Distribution Width 13.1, Platelet Count 385, Mean Platelet Volume 7.5, Neutrophils (%) (Auto) 60.9, Lymphocytes (% ) (Auto) 18.5L, Monocytes (%) (Auto) 8.8, Eosinophils (%) (Auto) 10.9H, Basophils (%) (Auto) 1.0, Sodium Level 142, Potassium Level 3.8, Chloride Level 107, Carbon Dioxide Level 29, Anion Gap 7, Blood Urea Nitrogen 15, Creatinine 0.7, Estimat Glomerular Filtration Rate , Glucose Level 170H, Calcium Level 8.7 , Total Bilirubin 0.3, Aspartate Amino Transf (AST/SGOT) 11L, Alanine Aminotransferase (ALT/SGPT) 8L, Alkaline Phosphatase 94, Total Protein 5.8L, Albumin 1.5L, Globulin 4.3, Albumin/Globulin Ratio 0.3L, Uric Acid 2.4L, Phosphorus Level 3.5, Magnesium Level 1.7L, Troponin I 0.055, C-Reactive Protein , Quantitative 5.4H, Pro-B-Type Natriuretic Peptide [id number] Height (Feet): 6 Weight (Pounds): 191 General Appearance: no apparent distress EENT: normal ENT inspection Neck: normal alignment Cardiovascular: no gallop/murmur, no JVD Respiratory/Chest: rhonchi - bilaterally Abdomen: non tender, soft Extremities: non-tender Skin: warm/dry Jose Luis Rendon Jul 10, 2017 10:54
--- NOTE | 2017-07-10 10:56 | Infectious Diseases Prog Note ---
"Assessment/Plan Assessment/Plan antibiotics : vancomycin iv 12.8.17 - zosyn 12.8.17 - A 1. MRSA | pseudomonas UTI 2. pseudomonas | enterobacter pneumonia 3. + blood cultures with coag neg staph likely contaminated 4. leucocytosis resolved 5. respiratory failure P 1. continue vancomycin iv, zosyn 2. will follow up cultures Subjective ROS Limited/Unobtainable: Yes Allergies: Coded Allergies: No Known Allergies (Verified , 09/26/12) Objective Vital Signs Last 24 Hour Vital Signs Date Time Temp Pulse Resp B/P (MAP) Pulse Ox O2 Delivery O2 Flow Rate FiO2 07/10/17 10:00 96 24 148/74 100 Mechanical Ventilator 35 07/10/17 09:27 93 26 35 07/10/17 09:00 93 19 136/81 100 Mechanical Ventilator 35 07/10/17 08:00 99.0 96 20 140/80 100 Mechanical Ventilator 35 07/10/17 08:00 35 07/10/17 08:00 89 07/10/17 07:23 88 19 35 07/10/17 07:00 90 20 118/60 100 Mechanical Ventilator 35 07/10/17 06:00 100 20 132/68 100 Mechanical Ventilator 35 07/10/17 05:24 97 25 35 07/10/17 05:00 100 22 135/67 100 Mechanical Ventilator 35 07/10/17 04:00 99.2 97 20 139/70 100 Mechanical Ventilator 35 07/10/17 04:00 35 07/10/17 03:56 97 07/10/17 03:00 86 21 105/57 100 Mechanical Ventilator 35 07/10/17 03:00 91 28 35 07/10/17 02:00 78 18 96/45 100 Mechanical Ventilator 35 07/10/17 01:00 74 17 88/41 100 Mechanical Ventilator 35 07/10/17 00:55 76 16 35 07/10/17 00:49 76 07/10/17 00:00 99.8 91 23 111/52 99 Mechanical Ventilator 35 07/10/17 00:00 35 07/09/17 23:00 87 22 120/79 100 Mechanical Ventilator 35 07/09/17 22:32 83 19 35 07/09/17 22:00 80 17 108/58 100 Mechanical Ventilator 35 07/09/17 21:31 119/58 07/09/17 21:00 86 24 97/45 100 Mechanical Ventilator 35 07/09/17 20:52 78 18 35 07/09/17 20:00 98.7 87 25 132/64 100 Mechanical Ventilator 35 07/09/17 20:00 35 07/09/17 19:47 85 07/09/17 19:00 80 17 90/49 100 Mechanical Ventilator 35 07/09/17 18:45 82 17 35 07/09/17 18:00 90 25 131/74 100 Mechanical Ventilator 35 07/09/17 17:00 87 20 119/59 100 Mechanical Ventilator 35 07/09/17 16:56 92 34 35 07/09/17 16:00 35 07/09/17 16:00 88 07/09/17 16:00 98.8 90 19 122/85 100 Mechanical Ventilator 35 07/09/17 15:00 89 21 113/56 100 Mechanical Ventilator 35 07/09/17 14:46 86 19 35 07/09/17 14:00 88 25 122/66 100 Mechanical Ventilator 35 07/09/17 13:00 92 26 121/59 100 Mechanical Ventilator 35 07/09/17 12:34 124 23 35 07/09/17 12:00 106 07/09/17 12:00 98.6 108 25 141/91 100 Mechanical Ventilator 35 07/09/17 12:00 35 07/09/17 11:30 110 26 125/80 100 Mechanical Ventilator 35 07/09/17 11:10 105 28 35 07/09/17 11:00 103 26 132/71 100 Mechanical Ventilator 35 Height (Feet): 6 Weight (Pounds): 191 HEENT: other - intubated Respiratory/Chest: lungs clear Cardiovascular: normal rate, regular rhythm, no gallop/murmur Abdomen: soft, non tender, other - GT Extremities: other - + edema, right IJ catheter Laboratory Tests Test 07/09/17 17:40 07/10/17 04:20 White Blood Count 8.7 K/UL (4.8-10.8) 7.4 K/UL (4.8-10.8) Red Blood Count 3.16 M/UL (4.70-6.10) L 3.09 M/UL (4.70-6.10) L Hemoglobin 8.9 G/DL (14.2-18.0) L 9.6 G/DL (14.2-18.0) L Hematocrit 28.8 % (42.0-52.0) L 28.4 % (42.0-52.0) L Mean Corpuscular Volume 91 FL (80-99) 92 FL (80-99) Mean Corpuscular Hemoglobin 28.3 PG (27.0-31.0) 31.2 PG (27.0-31.0) H Mean Corpuscular Hemoglobin Concent 31.1 G/DL (32.0-36.0) L 33.9 G/DL (32.0-36.0) Red Cell Distribution Width 12.9 % (11.6-14.8) 13.1 % (11.6-14.8) Platelet Count 376 K/UL (150-450) 385 K/UL (150-450) Mean Platelet Volume 7.3 FL (6.5-10.1) 7.5 FL (6.5-10.1) Neutrophils (%) (Auto) 62.6 % (45.0-75.0) 60.9 % (45.0-75.0) Lymphocytes (%) (Auto) 15.4 % (20.0-45.0) L 18.5 % (20.0-45.0) L Monocytes (%) (Auto) 10.1 % (1.0-10.0) H 8.8 % (1.0-10.0) Eosinophils (%) (Auto) 10.6 % (0.0-3.0) H 10.9 % (0.0-3.0) H Basophils (%) (Auto) 1.3 % (0.0-2.0) 1.0 % (0.0-2.0) Stool Occult Blood Pending Sodium Level 142 MMOL/L (136-145) 142 MMOL/L (136-145) Potassium Level 3.8 MMOL/L (3.5-5.1) 3.8 MMOL/L (3.5-5.1) Chloride Level 109 MMOL/L (98-107) H 107 MMOL/L (98-107) Carbon Dioxide Level 28 MMOL/L (21-32) 29 MMOL/L (21-32) Anion Gap 5 mmol/L (5-15) 7 mmol/L (5-15) Blood Urea Nitrogen 15 mg/dL (7-18) 15 mg/dL (7-18) Creatinine 0.8 MG/DL (0.55-1.30) 0.7 MG/DL (0.55-1.30) Estimat Glomerular Filtration Rate mL/min (>60) mL/min (>60) Glucose Level 114 MG/DL (74-106) H 170 MG/DL (74-106) H Calcium Level 8.4 MG/DL (8.5-10.1) L 8.7 MG/DL (8.5-10.1) Total Bilirubin 0.2 MG/DL (0.2-1.0) 0.3 MG/DL (0.2-1.0) Aspartate Amino Transf (AST/SGOT) 10 U/L (15-37) L 11 U/L (15-37) L Alanine Aminotransferase (ALT/SGPT) 9 U/L (12-78) L 8 U/L (12-78) L Alkaline Phosphatase 95 U/L (46-116) 94 U/L (46-116) Total Protein 5.7 G/DL (6.4-8.2) L 5.8 G/DL (6.4-8.2) L Albumin 1.4 G/DL (3.4-5.0) L 1.5 G/DL (3.4-5.0) L Globulin 4.3 g/dL 4.3 g/dL Albumin/Globulin Ratio 0.3 (1.0-2.7) L 0.3 (1.0-2.7) L Uric Acid 2.4 MG/DL (2.6-7.2) L Phosphorus Level 3.5 MG/DL (2.5-4.9) Magnesium Level 1.7 MG/DL (1.8-2.4) L Troponin I 0.055 ng/mL (0.000-0.056) C-Reactive Protein, Quantitative 5.4 mg/dL (0.00-0.90) H Pro-B-Type Natriuretic Peptide 93656 pg/mL (0-125) H ANNALISA GUTIÉRREZ Jul 10, 2017 10:56"
--- NOTE | 2017-07-10 11:49 | General Progress Note ---
Assessment/Plan Problem List: (1) COPD (chronic obstructive pulmonary disease) ICD Codes: J44.9 - Chronic obstructive pulmonary disease SNOMED: 30126357 (2) Suprapubic catheter ICD Codes: Z93.59 - Other cystostomy status SNOMED: 555901554, 989490407 (3) Catheter-associated urinary tract infection ICD Codes: T83.511A - Infection and inflammatory reaction due to indwelling urethral catheter, initial encounter; N39.0 - Urinary tract infection, site not specified SNOMED: 373837676 (4) Anemia ICD Codes: D64.9 - Anemia, unspecified SNOMED: 425964091 (5) Dementia ICD Codes: F03.90 - Unspecified dementia without behavioral disturbance SNOMED: 68992988 (6) Seizure ICD Codes: R56.9 - Unspecified convulsions SNOMED: 07800375 (7) Prostate cancer ICD Codes: C61 - Malignant neoplasm of prostate SNOMED: 578290888 (8) COPD (chronic obstructive pulmonary disease) ICD Codes: J44.9 - Chronic obstructive pulmonary disease, unspecified SNOMED: 39596731 (9) Respiratory distress ICD Codes: R06.03 - Acute respiratory distress SNOMED: 241177134 (10) Sepsis ICD Codes: A41.9 - Sepsis, unspecified organism SNOMED: 60062672 Assessment/Plan resp failure lyte abnormaility copd asp pna dehyration sepsis no wheezing afebrile Subjective ROS Limited/Unobtainable: Yes Allergies: Coded Allergies: No Known Allergies (Verified , 09/26/12) Objective Last 24 Hour Vital Signs Date Time Temp Pulse Resp B/P (MAP) Pulse Ox O2 Delivery O2 Flow Rate FiO2 07/10/17 11:00 94 23 119/74 100 Mechanical Ventilator 35 07/10/17 10:59 98 24 35 07/10/17 10:00 96 24 148/74 100 Mechanical Ventilator 35 07/10/17 09:27 93 26 35 07/10/17 09:00 93 19 136/81 100 Mechanical Ventilator 35 07/10/17 08:00 99.0 96 20 140/80 100 Mechanical Ventilator 35 07/10/17 08:00 35 07/10/17 08:00 89 07/10/17 07:23 88 19 35 07/10/17 07:00 90 20 118/60 100 Mechanical Ventilator 35 07/10/17 06:00 100 20 132/68 100 Mechanical Ventilator 35 07/10/17 05:24 97 25 35 07/10/17 05:00 100 22 135/67 100 Mechanical Ventilator 35 07/10/17 04:00 99.2 97 20 139/70 100 Mechanical Ventilator 35 17 04:00 35 07/10/17 03:56 97 07/10/17 03:00 86 21 105/57 100 Mechanical Ventilator 35 07/10/17 03:00 91 28 35 07/10/17 02:00 78 18 96/45 100 Mechanical Ventilator 35 07/10/17 01:00 74 17 88/41 100 Mechanical Ventilator 35 07/10/17 00:55 76 16 35 07/10/17 00:49 76 07/10/17 00:00 99.8 91 23 111/52 99 Mechanical Ventilator 35 07/10/17 00:00 35 07/09/17 23:00 87 22 120/79 100 Mechanical Ventilator 35 07/09/17 22:32 83 19 35 07/09/17 22:00 80 17 108/58 100 Mechanical Ventilator 35 07/09/17 21:31 119/58 07/09/17 21:00 86 24 97/45 100 Mechanical Ventilator 35 07/09/17 20:52 78 18 35 07/09/17 20:00 98.7 87 25 132/64 100 Mechanical Ventilator 35 07/09/17 20:00 35 07/09/17 19:47 85 07/09/17 19:00 80 17 90/49 100 Mechanical Ventilator 35 07/09/17 18:45 82 17 35 07/09/17 18:00 90 25 131/74 100 Mechanical Ventilator 35 07/09/17 17:00 87 20 119/59 100 Mechanical Ventilator 35 07/09/17 16:56 92 34 35 07/09/17 16:00 35 07/09/17 16:00 88 07/09/17 16:00 98.8 90 19 122/85 100 Mechanical Ventilator 35 07/09/17 15:00 89 21 113/56 100 Mechanical Ventilator 35 07/09/17 14:46 86 19 35 07/09/17 14:00 88 25 122/66 100 Mechanical Ventilator 35 07/09/17 13:00 92 26 121/59 100 Mechanical Ventilator 35 07/09/17 12:34 124 23 35 07/09/17 12:00 106 07/09/17 12:00 98.6 108 25 141/91 100 Mechanical Ventilator 35 07/09/17 12:00 35 Intake and Output 07/10/17 07/11/17 19:00 07:00 Intake Total 344.583 ml Output Total 350 ml Balance -5.417 ml IV Total 124.583 ml Tube Feeding 220 ml Output Urine Total 350 ml # Bowel Movements 1 Laboratory Tests 07/09/17 17:40: White Blood Count 8.7, Red Blood Count 3.16L, Hemoglobin 8.9L, Hematocrit 28.8L , Mean Corpuscular Volume 91, Mean Corpuscular Hemoglobin 28.3, Mean Corpuscular Hemoglobin Concent 31.1L, Red Cell Distribution Width 12.9, Platelet Count 376, Mean Platelet Volume 7.3, Neutrophils (%) (Auto) 62.6, Lymphocytes (%) (Auto) 15.4L, Monocytes (%) (Auto) 10.1H, Eosinophils (%) (Auto ) 10.6H, Basophils (%) (Auto) 1.3, Stool Occult Blood [Pending], Sodium Level 142, Potassium Level 3.8, Chloride Level 109H, Carbon Dioxide Level 28, Anion Gap 5, Blood Urea Nitrogen 15, Creatinine 0.8, Estimat Glomerular Filtration Rate , Glucose Level 114H, Calcium Level 8.4L, Total Bilirubin 0.2, Aspartate Amino Transf (AST/SGOT) 10L, Alanine Aminotransferase (ALT/SGPT) 9L, Alkaline Phosphatase 95, Total Protein 5.7L, Albumin 1.4L, Globulin 4.3, Albumin/ Globulin Ratio 0.3L 07/10/17 04:20: White Blood Count 7.4, Red Blood Count 3.09L, Hemoglobin 9.6L, Hematocrit 28.4L , Mean Corpuscular Volume 92, Mean Corpuscular Hemoglobin 31.2H, Mean Corpuscular Hemoglobin Concent 33.9, Red Cell Distribution Width 13.1, Platelet Count 385, Mean Platelet Volume 7.5, Neutrophils (%) (Auto) 60.9, Lymphocytes (% ) (Auto) 18.5L, Monocytes (%) (Auto) 8.8, Eosinophils (%) (Auto) 10.9H, Basophils (%) (Auto) 1.0, Sodium Level 142, Potassium Level 3.8, Chloride Level 107, Carbon Dioxide Level 29, Anion Gap 7, Blood Urea Nitrogen 15, Creatinine 0.7, Estimat Glomerular Filtration Rate , Glucose Level 170H, Calcium Level 8.7 , Total Bilirubin 0.3, Aspartate Amino Transf (AST/SGOT) 11L, Alanine Aminotransferase (ALT/SGPT) 8L, Alkaline Phosphatase 94, Total Protein 5.8L, Albumin 1.5L, Globulin 4.3, Albumin/Globulin Ratio 0.3L, Uric Acid 2.4L, Phosphorus Level 3.5, Magnesium Level 1.7L, Troponin I 0.055, C-Reactive Protein , Quantitative 5.4H, Pro-B-Type Natriuretic Peptide [id number] Height (Feet): 6 Weight (Pounds): 191 Neck: supple Cardiovascular: normal rate Respiratory/Chest: lungs clear Abdomen: soft Sary Oakes MD Jul 10, 2017 11:49
--- NOTE | 2017-07-10 12:19 | Diagnostic Imaging Report ---
Indication: Shortness of breath Technique: XRAY Chest 1v Comparison: 07/08/2017 Findings: ET tube and central line unchanged in position. Heart size and mediastinal contours appear stable. Persistent interstitial and patchy bilateral airspace opacities with slight improved aeration in the left lower lung compared to the prior exam. There is no pneumothorax. Osseous structures are stable. Impression: Persistent interstitial and patchy bilateral airspace opacities. Slight improved aeration in the left lung compared to the prior exam.
[2017-07-10] MEDS ORDERED: Tubing IV Secondary IV ONE (16:14)
[2017-07-10] MEDS ORDERED: NS 500ML ONE (16:14)
--- NOTE | 2017-07-10 16:35 | General Progress Note ---
Assessment/Plan Assessment/Plan Assessment - OBS - dysphagia / GT - prostate CA - anemia - worse - s/p Suprapubic catheter - DM - Leukocytosis Recommendations - GT feeding - follow residuals - Elevate HOB - monitor H&H - check OB - PPI - abx Subjective Allergies: Coded Allergies: No Known Allergies (Verified , 09/26/12) Subjective above noted d/w RN tolerating feeds non communicative trying to wean off vent Objective Last 24 Hour Vital Signs Date Time Temp Pulse Resp B/P (MAP) Pulse Ox O2 Delivery O2 Flow Rate FiO2 07/10/17 15:03 92 22 35 07/10/17 15:00 90 17 123/58 100 Mechanical Ventilator 35 07/10/17 14:00 96 20 140/67 100 Mechanical Ventilator 35 07/10/17 13:20 115 24 35 07/10/17 13:10 101 22 35 07/10/17 13:10 100 07/10/17 13:00 111 27 155/94 100 Mechanical Ventilator 35 07/10/17 12:00 102 07/10/17 12:00 35 07/10/17 11:00 94 23 119/74 100 Mechanical Ventilator 35 07/10/17 10:59 98 24 35 07/10/17 10:00 96 24 148/74 100 Mechanical Ventilator 35 07/10/17 09:27 93 26 35 07/10/17 09:00 93 19 136/81 100 Mechanical Ventilator 35 07/10/17 08:00 99.0 96 20 140/80 100 Mechanical Ventilator 35 07/10/17 08:00 35 07/10/17 08:00 89 07/10/17 07:23 88 19 35 07/10/17 07:00 90 20 118/60 100 Mechanical Ventilator 35 07/10/17 06:00 100 20 132/68 100 Mechanical Ventilator 35 07/10/17 05:24 97 25 35 07/10/17 05:00 100 22 135/67 100 Mechanical Ventilator 35 07/10/17 04:00 99.2 97 20 139/70 100 Mechanical Ventilator 35 07/10/17 04:00 35 07/10/17 03:56 97 07/10/17 03:00 86 21 105/57 100 Mechanical Ventilator 35 07/10/17 03:00 91 28 35 07/10/17 02:00 78 18 96/45 100 Mechanical Ventilator 35 07/10/17 01:00 74 17 88/41 100 Mechanical Ventilator 35 07/10/17 00:55 76 16 35 07/10/17 00:49 76 07/10/17 00:00 99.8 91 23 111/52 99 Mechanical Ventilator 35 07/10/17 00:00 35 07/09/17 23:00 87 22 120/79 100 Mechanical Ventilator 35 07/09/17 22:32 83 19 35 07/09/17 22:00 80 17 108/58 100 Mechanical Ventilator 35 07/09/17 21:31 119/58 07/09/17 21:00 86 24 97/45 100 Mechanical Ventilator 35 07/09/17 20:52 78 18 35 07/09/17 20:00 98.7 87 25 132/64 100 Mechanical Ventilator 35 07/09/17 20:00 35 07/09/17 19:47 85 07/09/17 19:00 80 17 90/49 100 Mechanical Ventilator 35 07/09/17 18:45 82 17 35 07/09/17 18:00 90 25 131/74 100 Mechanical Ventilator 35 07/09/17 17:00 87 20 119/59 100 Mechanical Ventilator 35 07/09/17 16:56 92 34 35 Intake and Output 07/10/17 07/11/17 19:00 07:00 Intake Total 592.083 ml Output Total 910 ml Balance -317.917 ml IV Total 152.083 ml Tube Feeding 440 ml Output Urine Total 910 ml # Bowel Movements 2 Laboratory Tests 07/09/17 17:40: White Blood Count 8.7, Red Blood Count 3.16L, Hemoglobin 8.9L, Hematocrit 28.8L , Mean Corpuscular Volume 91, Mean Corpuscular Hemoglobin 28.3, Mean Corpuscular Hemoglobin Concent 31.1L, Red Cell Distribution Width 12.9, Platelet Count 376, Mean Platelet Volume 7.3, Neutrophils (%) (Auto) 62.6, Lymphocytes (%) (Auto) 15.4L, Monocytes (%) (Auto) 10.1H, Eosinophils (%) (Auto ) 10.6H, Basophils (%) (Auto) 1.3, Stool Occult Blood [Pending], Sodium Level 142, Potassium Level 3.8, Chloride Level 109H, Carbon Dioxide Level 28, Anion Gap 5, Blood Urea Nitrogen 15, Creatinine 0.8, Estimat Glomerular Filtration Rate , Glucose Level 114H, Calcium Level 8.4L, Total Bilirubin 0.2, Aspartate Amino Transf (AST/SGOT) 10L, Alanine Aminotransferase (ALT/SGPT) 9L, Alkaline Phosphatase 95, Total Protein 5.7L, Albumin 1.4L, Globulin 4.3, Albumin/ Globulin Ratio 0.3L 07/10/17 04:20: White Blood Count 7.4, Red Blood Count 3.09L, Hemoglobin 9.6L, Hematocrit 28.4L , Mean Corpuscular Volume 92, Mean Corpuscular Hemoglobin 31.2H, Mean Corpuscular Hemoglobin Concent 33.9, Red Cell Distribution Width 13.1, Platelet Count 385, Mean Platelet Volume 7.5, Neutrophils (%) (Auto) 60.9, Lymphocytes (% ) (Auto) 18.5L, Monocytes (%) (Auto) 8.8, Eosinophils (%) (Auto) 10.9H, Basophils (%) (Auto) 1.0, Sodium Level 142, Potassium Level 3.8, Chloride Level 107, Carbon Dioxide Level 29, Anion Gap 7, Blood Urea Nitrogen 15, Creatinine 0.7, Estimat Glomerular Filtration Rate , Glucose Level 170H, Calcium Level 8.7 , Total Bilirubin 0.3, Aspartate Amino Transf (AST/SGOT) 11L, Alanine Aminotransferase (ALT/SGPT) 8L, Alkaline Phosphatase 94, Total Protein 5.8L, Albumin 1.5L, Globulin 4.3, Albumin/Globulin Ratio 0.3L, Uric Acid 2.4L, Phosphorus Level 3.5, Magnesium Level 1.7L, Troponin I 0.055, C-Reactive Protein , Quantitative 5.4H, Pro-B-Type Natriuretic Peptide [id number] Height (Feet): 6 Weight (Pounds): 191 Objective Eldely WM NCAT, (+) ETT supple, (+ ) IJ catheter CTA RR soft flat, (+) GT, (+) SP catheter no edema OBS CURTIS GARCIA Jul 10, 2017 16:35
--- NOTE | 2017-07-10 16:44 | Pulmonolgy Critical Care Note ---
Critical Care - Asmt/Plan Assessment/Plan: Assessment/Plan 1. Respiratory failure. 2. Sepsis with shock. 3. Pneumonia. 4. Anuria, resolved 5. Prostate cancer with suprapubic catheter. 6. Severe Alzheimer dementia. 7. Severe protein-calorie malnutrition. 8. Anemia. 9. Possible acute myocardial infarction. 10. Azotemia. 11. Hyperglycemia. not tolerating weaning Wednesday vent support, not weanable yet, high spont RR, good TV cont rx adjust abx per ID prognosis guarded may need trach if not weanable next week greater than 35 minutes of critical care time reviewing the record, dw nursing, examination of the patent and plan for the day. Critical Care - Objective Last 24 Hour Vital Signs Date Time Temp Pulse Resp B/P (MAP) Pulse Ox O2 Delivery O2 Flow Rate FiO2 07/10/17 15:03 92 22 35 07/10/17 15:00 90 17 123/58 100 Mechanical Ventilator 35 07/10/17 14:00 96 20 140/67 100 Mechanical Ventilator 35 07/10/17 13:20 115 24 35 07/10/17 13:10 101 22 35 07/10/17 13:10 100 07/10/17 13:00 111 27 155/94 100 Mechanical Ventilator 35 07/10/17 12:00 102 07/10/17 12:00 35 07/10/17 11:00 94 23 119/74 100 Mechanical Ventilator 35 07/10/17 10:59 98 24 35 07/10/17 10:00 96 24 148/74 100 Mechanical Ventilator 35 07/10/17 09:27 93 26 35 07/10/17 09:00 93 19 136/81 100 Mechanical Ventilator 35 07/10/17 08:00 99.0 96 20 140/80 100 Mechanical Ventilator 35 07/10/17 08:00 35 07/10/17 08:00 89 07/10/17 07:23 88 19 35 07/10/17 07:00 90 20 118/60 100 Mechanical Ventilator 35 07/10/17 06:00 100 20 132/68 100 Mechanical Ventilator 35 07/10/17 05:24 97 25 35 07/10/17 05:00 100 22 135/67 100 Mechanical Ventilator 35 07/10/17 04:00 99.2 97 20 139/70 100 Mechanical Ventilator 35 07/10/17 04:00 35 07/10/17 03:56 97 07/10/17 03:00 86 21 105/57 100 Mechanical Ventilator 35 07/10/17 03:00 91 28 35 07/10/17 02:00 78 18 96/45 100 Mechanical Ventilator 35 07/10/17 01:00 74 17 88/41 100 Mechanical Ventilator 35 07/10/17 00:55 76 16 35 07/10/17 00:49 76 07/10/17 00:00 99.8 91 23 111/52 99 Mechanical Ventilator 35 07/10/17 00:00 35 07/09/17 23:00 87 22 120/79 100 Mechanical Ventilator 35 07/09/17 22:32 83 19 35 07/09/17 22:00 80 17 108/58 100 Mechanical Ventilator 35 07/09/17 21:31 119/58 07/09/17 21:00 86 24 97/45 100 Mechanical Ventilator 35 07/09/17 20:52 78 18 35 07/09/17 20:00 98.7 87 25 132/64 100 Mechanical Ventilator 35 07/09/17 20:00 35 07/09/17 19:47 85 07/09/17 19:00 80 17 90/49 100 Mechanical Ventilator 35 07/09/17 18:45 82 17 35 07/09/17 18:00 90 25 131/74 100 Mechanical Ventilator 35 07/09/17 17:00 87 20 119/59 100 Mechanical Ventilator 35 07/09/17 16:56 92 34 35 Status: obtunded Condition: critical Heart: HR/BP stable Abdomen: soft, non-tender Extremities: edema Decubiti: location Micro: Current Medications Medications (Trade) Dose Ordered Sig/Matt Route PRN Reason Start Time Stop Time Status Last Admin Dose Admin Acetaminophen (Tylenol) 650 mg Q4H PRN GT Mild Pain (1-3) 07/02/17 19:00 08/01/17 18:59 07/05/17 09:12 Acetaminophen/ Hydrocodone Bitart ([facility] 5/325) 1 tab QID PRN ORAL for moderate pain (4-6) 07/03/17 18:45 07/10/17 18:44 Aspirin (ASA) 81 mg DAILY GT 07/03/17 09:00 08/02/17 08:59 07/10/17 08:25 Chlorhexidine Gluconate (Mari-Hex 2%) 1 applic DAILY@1999 TOPIC 07/03/17 20:00 08/02/17 19:59 07/09/17 19:32 Dextrose (Dextrose 50%) STAT PRN IV Hypoglycemia 07/02/17 19:00 08/01/17 18:59 Enoxaparin Sodium (Lovenox) 80 mg Q12HR SUBQ 07/09/17 21:00 08/08/17 20:59 07/10/17 08:53 Famotidine (Pepcid I.v.) 20 mg Q12HR IVP 07/05/17 23:00 08/04/17 22:59 07/10/17 08:50 Insulin Aspart (NovoLOG) Q6HR SUBQ 07/04/17 00:00 08/01/17 20:59 07/10/17 12:59 Insulin Detemir (Levemir) 10 units BID SUBQ 07/10/17 09:00 08/09/17 08:59 07/10/17 10:32 Lorazepam (Ativan 2mg/ml 1ml) 0.5 mg Q3HR PRN IV For Anxiety 07/03/17 18:30 07/10/17 18:29 07/07/17 11:12 Midodrine (Pro-Amatine) 10 mg THREE TIMES A DAY GT 07/03/17 09:00 08/02/17 08:59 07/10/17 13:05 Norepinephrine Bitartrate 4 mg/ Dextrose 250 ml @ 0 mls/hr Q24H IV 07/02/17 21:31 08/01/17 21:30 07/05/17 10:12 Ondansetron HCl (Zofran) 4 mg Q6H PRN GT Nausea & Vomiting 07/02/17 19:00 08/01/17 18:59 Pantoprazole (Protonix) 40 mg DAILY IV 07/03/17 09:00 08/02/17 08:59 07/10/17 08:26 Piperacillin Sod/ Tazobactam Sod 3.375 gm/Dextrose 55 ml @ 13.75 mls/ hr EVERY 8 HOURS IVPB 07/02/17 23:00 07/12/17 22:59 07/10/17 13:06 Vancomycin HCl (Vanco rx to dose) 1 ea DAILY PRN MISC RX TO DOSE PROTOCOL 07/02/17 19:00 08/01/17 18:59 Vancomycin/Sodium Chloride 250 ml @ 166.667 mls/hr Q12HR@0600,1800 IVPB 07/08/17 18:00 07/13/17 17:59 07/10/17 05:40 Vitamin A/Vitamin D (A & D Oint) 1 applic EVERY 12 HOURS TOPIC 07/04/17 21:00 08/03/17 20:59 07/10/17 08:26 Laboratory Tests Test 07/09/17 17:40 07/10/17 04:20 White Blood Count 8.7 K/UL (4.8-10.8) 7.4 K/UL (4.8-10.8) Red Blood Count 3.16 M/UL (4.70-6.10) L 3.09 M/UL (4.70-6.10) L Hemoglobin 8.9 G/DL (14.2-18.0) L 9.6 G/DL (14.2-18.0) L Hematocrit 28.8 % (42.0-52.0) L 28.4 % (42.0-52.0) L Mean Corpuscular Volume 91 FL (80-99) 92 FL (80-99) Mean Corpuscular Hemoglobin 28.3 PG (27.0-31.0) 31.2 PG (27.0-31.0) H Mean Corpuscular Hemoglobin Concent 31.1 G/DL (32.0-36.0) L 33.9 G/DL (32.0-36.0) Red Cell Distribution Width 12.9 % (11.6-14.8) 13.1 % (11.6-14.8) Platelet Count 376 K/UL (150-450) 385 K/UL (150-450) Mean Platelet Volume 7.3 FL (6.5-10.1) 7.5 FL (6.5-10.1) Neutrophils (%) (Auto) 62.6 % (45.0-75.0) 60.9 % (45.0-75.0) Lymphocytes (%) (Auto) 15.4 % (20.0-45.0) L 18.5 % (20.0-45.0) L Monocytes (%) (Auto) 10.1 % (1.0-10.0) H 8.8 % (1.0-10.0) Eosinophils (%) (Auto) 10.6 % (0.0-3.0) H 10.9 % (0.0-3.0) H Basophils (%) (Auto) 1.3 % (0.0-2.0) 1.0 % (0.0-2.0) Stool Occult Blood Pending Sodium Level 142 MMOL/L (136-145) 142 MMOL/L (136-145) Potassium Level 3.8 MMOL/L (3.5-5.1) 3.8 MMOL/L (3.5-5.1) Chloride Level 109 MMOL/L (98-107) H 107 MMOL/L (98-107) Carbon Dioxide Level 28 MMOL/L (21-32) 29 MMOL/L (21-32) Anion Gap 5 mmol/L (5-15) 7 mmol/L (5-15) Blood Urea Nitrogen 15 mg/dL (7-18) 15 mg/dL (7-18) Creatinine 0.8 MG/DL (0.55-1.30) 0.7 MG/DL (0.55-1.30) Estimat Glomerular Filtration Rate mL/min (>60) mL/min (>60) Glucose Level 114 MG/DL (74-106) H 170 MG/DL (74-106) H Calcium Level 8.4 MG/DL (8.5-10.1) L 8.7 MG/DL (8.5-10.1) Total Bilirubin 0.2 MG/DL (0.2-1.0) 0.3 MG/DL (0.2-1.0) Aspartate Amino Transf (AST/SGOT) 10 U/L (15-37) L 11 U/L (15-37) L Alanine Aminotransferase (ALT/SGPT) 9 U/L (12-78) L 8 U/L (12-78) L Alkaline Phosphatase 95 U/L (46-116) 94 U/L (46-116) Total Protein 5.7 G/DL (6.4-8.2) L 5.8 G/DL (6.4-8.2) L Albumin 1.4 G/DL (3.4-5.0) L 1.5 G/DL (3.4-5.0) L Globulin 4.3 g/dL 4.3 g/dL Albumin/Globulin Ratio 0.3 (1.0-2.7) L 0.3 (1.0-2.7) L Uric Acid 2.4 MG/DL (2.6-7.2) L Phosphorus Level 3.5 MG/DL (2.5-4.9) Magnesium Level 1.7 MG/DL (1.8-2.4) L Troponin I 0.055 ng/mL (0.000-0.056) C-Reactive Protein, Quantitative 5.4 mg/dL (0.00-0.90) H Pro-B-Type Natriuretic Peptide 51694 pg/mL (0-125) H Accucheck: 218 Blood Sugars: BS not controlled Critical Care - Subjective ROS Limited/Unobtainable: Yes Condition: critical FI02: 35 Vent Support Breath Rate: 12 Vent Support Mode: AC Vent Tidal Volume: 500 Sputum Amount: Small PIP: 22 Tube Feeding Amount: 55 I&O: Intake and Output 07/10/17 07/11/17 19:00 07:00 Intake Total 592.083 ml Output Total 910 ml Balance -317.917 ml IV Total 152.083 ml Tube Feeding 440 ml Output Urine Total 910 ml # Bowel Movements 2 Subjective: obtuned on the vent no distress toelrating tf diffuse edema positive uop thru SPC no reports of cp nv or bleeding weaned for 4 hours and then developed tachycardia and tachypnea ET-Tube: 8.0 ET Position: 24 ROEL SANTO DO Jul 10, 2017 16:44
[2017-07-10] MEDS: Dyna-Hex 2% Top Sol 2oz TOPIC SCH (19:40)
[2017-07-11] VITALS (24 sets, daily range): BP systolic 90–143; BP diastolic 39–95
--- NOTE | 2017-07-11 00:23 | Cardiology Progress Note ---
Assessment/Plan Assessment/Plan LATE ENTRY PROGRESS NOTE DATE OF SERVICE: 07/10/17 TIME: 19:47 1. Septic shock resolved, due to underlying pneumonia. 2. Sinus tachycardia,resolved, likely due to hypoxemia/sepsis/hypovolemia. 3. History of hypertension. All the blood pressure medication on hold. 4. History of cerebrovascular accident. 5. Respiratory failure, ?ARDS, follow up with pulmonary. Subjective Subjective Sinus rhythm at 81. Objective Last 24 Hour Vital Signs Date Time Temp Pulse Resp B/P (MAP) Pulse Ox O2 Delivery O2 Flow Rate FiO2 07/11/17 00:00 98.6 80 18 106/39 100 Mechanical Ventilator 35 07/11/17 00:00 35 07/10/17 23:00 79 17 103/50 99 Mechanical Ventilator 35 07/10/17 22:47 87 19 35 07/10/17 22:00 87 18 114/57 99 Mechanical Ventilator 35 07/10/17 21:30 81 19 35 07/10/17 21:00 82 19 111/57 99 Mechanical Ventilator 35 07/10/17 20:00 98.0 91 19 128/62 99 Mechanical Ventilator 35 07/10/17 20:00 35 07/10/17 19:42 91 07/10/17 19:30 87 18 35 07/10/17 19:00 91 20 121/68 99 Mechanical Ventilator 35 07/10/17 18:00 91 18 125/64 100 Mechanical Ventilator 35 07/10/17 17:00 96 16 115/74 100 Mechanical Ventilator 35 07/10/17 16:49 100 22 35 07/10/17 16:00 99.2 108 24 132/66 100 Mechanical Ventilator 35 07/10/17 16:00 35 07/10/17 16:00 106 07/10/17 15:03 92 22 35 07/10/17 15:00 90 17 123/58 100 Mechanical Ventilator 35 07/10/17 14:00 96 20 140/67 100 Mechanical Ventilator 35 07/10/17 13:20 115 24 35 07/10/17 13:10 101 22 35 07/10/17 13:10 100 07/10/17 13:00 111 27 155/94 100 Mechanical Ventilator 35 07/10/17 12:00 102 07/10/17 12:00 35 07/10/17 11:00 94 23 119/74 100 Mechanical Ventilator 35 07/10/17 10:59 98 24 35 07/10/17 10:00 96 24 148/74 100 Mechanical Ventilator 35 07/10/17 09:27 93 26 35 07/10/17 09:00 93 19 136/81 100 Mechanical Ventilator 35 07/10/17 08:00 99.0 96 20 140/80 100 Mechanical Ventilator 35 07/10/17 08:00 35 07/10/17 08:00 89 07/10/17 07:23 88 19 35 07/10/17 07:00 90 20 118/60 100 Mechanical Ventilator 35 07/10/17 06:00 100 20 132/68 100 Mechanical Ventilator 35 07/10/17 05:24 97 25 35 07/10/17 05:00 100 22 135/67 100 Mechanical Ventilator 35 07/10/17 04:00 99.2 97 20 139/70 100 Mechanical Ventilator 35 07/10/17 04:00 35 07/10/17 03:56 97 07/10/17 03:00 86 21 105/57 100 Mechanical Ventilator 35 07/10/17 03:00 91 28 35 07/10/17 02:00 78 18 96/45 100 Mechanical Ventilator 35 07/10/17 01:00 74 17 88/41 100 Mechanical Ventilator 35 07/10/17 00:55 76 16 35 07/10/17 00:49 76 Laboratory Tests Test 07/10/17 04:20 White Blood Count 7.4 K/UL (4.8-10.8) Red Blood Count 3.09 M/UL (4.70-6.10) L Hemoglobin 9.6 G/DL (14.2-18.0) L Hematocrit 28.4 % (42.0-52.0) L Mean Corpuscular Volume 92 FL (80-99) Mean Corpuscular Hemoglobin 31.2 PG (27.0-31.0) H Mean Corpuscular Hemoglobin Concent 33.9 G/DL (32.0-36.0) Red Cell Distribution Width 13.1 % (11.6-14.8) Platelet Count 385 K/UL (150-450) Mean Platelet Volume 7.5 FL (6.5-10.1) Neutrophils (%) (Auto) 60.9 % (45.0-75.0) Lymphocytes (%) (Auto) 18.5 % (20.0-45.0) L Monocytes (%) (Auto) 8.8 % (1.0-10.0) Eosinophils (%) (Auto) 10.9 % (0.0-3.0) H Basophils (%) (Auto) 1.0 % (0.0-2.0) Sodium Level 142 MMOL/L (136-145) Potassium Level 3.8 MMOL/L (3.5-5.1) Chloride Level 107 MMOL/L (98-107) Carbon Dioxide Level 29 MMOL/L (21-32) Anion Gap 7 mmol/L (5-15) Blood Urea Nitrogen 15 mg/dL (7-18) Creatinine 0.7 MG/DL (0.55-1.30) Estimat Glomerular Filtration Rate mL/min (>60) Glucose Level 170 MG/DL (74-106) H Uric Acid 2.4 MG/DL (2.6-7.2) L Calcium Level 8.7 MG/DL (8.5-10.1) Phosphorus Level 3.5 MG/DL (2.5-4.9) Magnesium Level 1.7 MG/DL (1.8-2.4) L Total Bilirubin 0.3 MG/DL (0.2-1.0) Aspartate Amino Transf (AST/SGOT) 11 U/L (15-37) L Alanine Aminotransferase (ALT/SGPT) 8 U/L (12-78) L Alkaline Phosphatase 94 U/L (46-116) Troponin I 0.055 ng/mL (0.000-0.056) C-Reactive Protein, Quantitative 5.4 mg/dL (0.00-0.90) H Pro-B-Type Natriuretic Peptide 21203 pg/mL (0-125) H Total Protein 5.8 G/DL (6.4-8.2) L Albumin 1.5 G/DL (3.4-5.0) L Globulin 4.3 g/dL Albumin/Globulin Ratio 0.3 (1.0-2.7) L Objective GENERAL: The patient is a chronically ill appearing, 76-year-old gentleman, intubated. HEENT: Atraumatic and normocephalic. ENT, pupils are equal, round, and reactive to light and accommodation. Bitemporal wasting. NECK: JVP cannot be assessed due to positive inspiratory pressure. CVS: Normal S1 and S2. Tachycardic. I do not appreciate any murmur, gallop, or rub at this time. LUNGS: Bilateral rhonchi, right greater than left. ABDOMEN: Soft, nontender, and nondistended. Presence of a G-tube. Positive bowel sounds. EXTREMITIES: There is no evidence of edema, clubbing, or cyanosis. FRANCISCO SPAIN Jul 11, 2017 00:23
[2017-07-11] MEDS: Vancomycin 750mg/NS 250ml IVPB SCH ×2 (05:35→17:33)
[2017-07-11] MEDS: Zoysn 3.37gm in D5W 55ml IVPB SCH ×3 (05:35→21:49)
[2017-07-11] MEDS: NovoLOG Insulin Flexpen SUBQ SCH ×4 (05:35→23:42)
[2017-07-11] MEDS: Aspirin Baby 81mg GT SCH (09:19)
[2017-07-11] MEDS: Vitamin A&D Oint 2oz Tube TOPIC SCH ×2 (09:19→20:38)
[2017-07-11] MEDS: Pantoprazole Inj IV SCH (09:19)
[2017-07-11] MEDS: Enoxaparin 80mg Inj SUBQ SCH ×2 (09:21→20:39)
[2017-07-11] MEDS: Levemir Flexpen SUBQ SCH ×2 (09:22→17:37)
--- NOTE | 2017-07-11 10:01 | Pulmonolgy Critical Care Note ---
Critical Care - Asmt/Plan Assessment/Plan: Assessment/Plan 1. Respiratory failure. 2. Sepsis with shock. 3. Pneumonia. pseudomonas/enterbacter positive 4. Anuria, resolved 5. Prostate cancer with suprapubic catheter. 6. Severe Alzheimer dementia. 7. Severe protein-calorie malnutrition. 8. Anemia. 9. Possible acute myocardial infarction. 10. Azotemia. 11. Hyperglycemia. vent support, not tolerating weaning adn most likely will need trach/peg cont rx nebs and suction consider diuresis CXR in am adjust abx per ID prognosis guarded greater than 35 minutes of critical care time reviewing the record, dw nursing, examination of the patent and plan for the day. Critical Care - Objective Last 24 Hour Vital Signs Date Time Temp Pulse Resp B/P (MAP) Pulse Ox O2 Delivery O2 Flow Rate FiO2 07/11/17 09:20 100 07/11/17 09:20 80 20 35 07/11/17 09:00 98.8 94 15 122/63 100 Mechanical Ventilator 35 07/11/17 08:00 79 15 114/54 100 Mechanical Ventilator 35 07/11/17 08:00 35 07/11/17 08:00 72 07/11/17 07:01 74 15 35 07/11/17 07:00 79 14 109/52 100 Mechanical Ventilator 35 07/11/17 06:00 72 15 94/49 100 Mechanical Ventilator 35 07/11/17 05:18 87 25 35 07/11/17 05:00 86 18 110/72 100 Mechanical Ventilator 35 07/11/17 04:00 98.7 85 22 143/67 100 Mechanical Ventilator 35 07/11/17 04:00 35 07/11/17 03:30 88 27 35 07/11/17 03:23 73 07/11/17 03:00 80 18 133/95 100 Mechanical Ventilator 35 07/11/17 02:00 73 15 96/45 100 Mechanical Ventilator 35 07/11/17 01:30 84 18 35 07/11/17 01:00 81 18 123/56 100 Mechanical Ventilator 35 07/11/17 00:00 98.6 80 18 106/39 100 Mechanical Ventilator 35 07/11/17 00:00 35 07/10/17 23:51 76 07/10/17 23:00 79 17 103/50 99 Mechanical Ventilator 35 07/10/17 22:47 87 19 35 07/10/17 22:00 87 18 114/57 99 Mechanical Ventilator 35 07/10/17 21:31 111/57 07/10/17 21:30 81 19 35 07/10/17 21:00 82 19 111/57 99 Mechanical Ventilator 35 07/10/17 20:00 98.0 91 19 128/62 99 Mechanical Ventilator 35 07/10/17 20:00 35 07/10/17 19:42 91 07/10/17 19:30 87 18 35 07/10/17 19:00 91 20 121/68 99 Mechanical Ventilator 35 07/10/17 18:00 91 18 125/64 100 Mechanical Ventilator 35 07/10/17 17:00 96 16 115/74 100 Mechanical Ventilator 35 07/10/17 16:49 100 22 35 07/10/17 16:00 99.2 108 24 132/66 100 Mechanical Ventilator 35 07/10/17 16:00 35 07/10/17 16:00 106 07/10/17 15:03 92 22 35 07/10/17 15:00 90 17 123/58 100 Mechanical Ventilator 35 07/10/17 14:00 96 20 140/67 100 Mechanical Ventilator 35 07/10/17 13:20 115 24 35 07/10/17 13:10 101 22 35 07/10/17 13:10 100 07/10/17 13:00 111 27 155/94 100 Mechanical Ventilator 35 07/10/17 12:00 102 07/10/17 12:00 35 07/10/17 11:00 94 23 119/74 100 Mechanical Ventilator 35 07/10/17 10:59 98 24 35 07/10/17 10:00 96 24 148/74 100 Mechanical Ventilator 35 Status: obtunded Condition: critical Lungs: rhonchi Heart: HR/BP stable Abdomen: soft, non-tender Extremities: edema Accucheck: 104 Blood Sugars: BS controlled Critical Care - Subjective ROS Limited/Unobtainable: Yes FI02: 35 Vent Support Breath Rate: 8 Vent Support Mode: IMV/SIMV Vent Tidal Volume: 500 Sputum Amount: Moderate PIP: 23 Tube Feeding Amount: 55 I&O: Intake and Output 07/11/17 07/12/17 19:00 07:00 Intake Total 137.50 ml Output Total 180 ml Balance -42.50 ml IV Total 27.50 ml Tube Feeding 110 ml Output Urine Total 180 ml Subjective: obtunded on the vent weaning this am on IMV no distress tolerating tf diffuse edema positive uop thru SPC no reports of cp nv or bleeding ET-Tube: 8.0 ET Position: 24 HANSAROEL DO Jul 11, 2017 10:01
--- NOTE | 2017-07-11 11:13 | Nephrology Progress Note ---
Assessment/Plan Problem List: (1) Respiratory distress (2) Suprapubic catheter (3) Septic shock (4) Electrolyte abnormality Assessment HypoKalemia- Respiratory Failure on Vent Septic shock / Pneumonia / UTI Oliguria due to low BP Prostate cancer with suprapubic catheter. Severe Alzheimer dementia. Severe protein-calorie malnutrition. Anemia. Hyperglycemia. Plan Plan: no labs since 07/06 FLuid challenge- Cortisol level wnl Antibiotics pulmonary support K supplements Per order Subjective ROS Limited/Unobtainable: Yes Objective Objective Last 24 Hour Vital Signs Date Time Temp Pulse Resp B/P (MAP) Pulse Ox O2 Delivery O2 Flow Rate FiO2 07/11/17 11:06 95 23 35 07/11/17 11:00 91 21 112/55 97 Mechanical Ventilator 35 07/11/17 10:00 95 15 128/63 100 Mechanical Ventilator 35 07/11/17 09:20 100 07/11/17 09:20 80 20 35 07/11/17 09:00 98.8 94 15 122/63 100 Mechanical Ventilator 35 07/11/17 08:00 79 15 114/54 100 Mechanical Ventilator 35 07/11/17 08:00 35 07/11/17 08:00 72 07/11/17 07:01 74 15 35 07/11/17 07:00 79 14 109/52 100 Mechanical Ventilator 35 07/11/17 06:00 72 15 94/49 100 Mechanical Ventilator 35 07/11/17 05:18 87 25 35 07/11/17 05:00 86 18 110/72 100 Mechanical Ventilator 35 07/11/17 04:00 98.7 85 22 143/67 100 Mechanical Ventilator 35 07/11/17 04:00 35 07/11/17 03:30 88 27 35 07/11/17 03:23 73 07/11/17 03:00 80 18 133/95 100 Mechanical Ventilator 35 07/11/17 02:00 73 15 96/45 100 Mechanical Ventilator 35 07/11/17 01:30 84 18 35 07/11/17 01:00 81 18 123/56 100 Mechanical Ventilator 35 07/11/17 00:00 98.6 80 18 106/39 100 Mechanical Ventilator 35 07/11/17 00:00 35 07/10/17 23:51 76 07/10/17 23:00 79 17 103/50 99 Mechanical Ventilator 35 07/10/17 22:47 87 19 35 07/10/17 22:00 87 18 114/57 99 Mechanical Ventilator 35 07/10/17 21:31 111/57 07/10/17 21:30 81 19 35 07/10/17 21:00 82 19 111/57 99 Mechanical Ventilator 35 07/10/17 20:00 98.0 91 19 128/62 99 Mechanical Ventilator 35 07/10/17 20:00 35 07/10/17 19:42 91 07/10/17 19:30 87 18 35 07/10/17 19:00 91 20 121/68 99 Mechanical Ventilator 35 07/10/17 18:00 91 18 125/64 100 Mechanical Ventilator 35 07/10/17 17:00 96 16 115/74 100 Mechanical Ventilator 35 07/10/17 16:49 100 22 35 07/10/17 16:00 99.2 108 24 132/66 100 Mechanical Ventilator 35 07/10/17 16:00 35 07/10/17 16:00 106 07/10/17 15:03 92 22 35 07/10/17 15:00 90 17 123/58 100 Mechanical Ventilator 35 07/10/17 14:00 96 20 140/67 100 Mechanical Ventilator 35 07/10/17 13:20 115 24 35 07/10/17 13:10 101 22 35 07/10/17 13:10 100 07/10/17 13:00 111 27 155/94 100 Mechanical Ventilator 35 07/10/17 12:00 102 07/10/17 12:00 35 Intake and Output 07/11/17 07/12/17 19:00 07:00 Intake Total 297.50 ml Output Total 380 ml Balance -82.50 ml IV Total 27.50 ml Tube Feeding 220 ml Other 50 ml Output Urine Total 380 ml Height (Feet): 6 Weight (Pounds): 189 General Appearance: no apparent distress Objective no other change FAITH SEARS Jul 11, 2017 11:13
[2017-07-11 12:31] LABS: ABG PCO2 45.9 mmHg (35.0-45.0)
[2017-07-11 12:32] LABS: ABG ALLEN TEST POSITIVE; ABG BASE EXCESS 6.1
[2017-07-11] MEDS: Midodrine 10mg tab GT SCH ×2 (13:00→18:00)
--- NOTE | 2017-07-11 13:04 | Cardiology Report ---
APPROVED REPORT EXAM: Two-dimensional and M-mode echocardiogram with Doppler and color Doppler. INDICATION Pre-Op M-Mode DIMENSIONS IVSd1.1 (0.7-1.1cm)Left Atrium (MM)4.0 (1.6-4.0cm) LVDd3.1 (3.5-5.6cm)Aortic Root3.3 (2.0-3.7cm) PWd1.0 (0.7-1.1cm)Aortic Cusp Exc.1.8 (1.5-2.0cm) LVDs5.1 (2.5-4.0cm) PWs2.0 cm Technically difficult study due to poor parasternal acoustical windows. Study quality precludes accurate assessment of regional wall motion. Normal left ventricular chamber size. Global left ventricular hypokinesis, more severe in apical reagion. Left ventricular ejection fraction estimated to be 40-45%. No evidence of left ventricular hypertrophy. Possible large pleural effusion. All other cardiac chamber sizes are within normal limits. Focal aortic valve sclerosis with adequate cusp excursion. Mildly thickened mitral valve leaflets with normal excursion. Mild mitral annulus and aortic root calcification. Pulmonic valve not well visualized. Normal tricuspid valve structure. Subcostal views not obtained due to GI tube. A color flow and spectral Doppler study was performed and revealed: Mild aortic regurgitation. Moderate mitral regurgitation. Mitral diastolic velocities suggest mild left ventricular dysfunction (Grade I ). Mild tricuspid regurgitation. Tricuspid systolic velocities suggests peak right ventricular systolic pressure of 33 mmHg. Trace pulmonic regurgitation present.
--- NOTE | 2017-07-11 13:43 | Infectious Diseases Prog Note ---
Assessment/Plan Assessment/Plan A; Septic Shock resolved Complicated UTI with MRSA & pseudomonas Pneumonia CoANS in blood likely contamination Acute respiratory failure MRSA colonization P; Continue Vancomycin & Zosyn Subjective ROS Limited/Unobtainable: Yes Neurologic: Reports: confusion, other - on restraint Allergies: Coded Allergies: No Known Allergies (Verified , 09/26/12) Objective Vital Signs Last 24 Hour Vital Signs Date Time Temp Pulse Resp B/P (MAP) Pulse Ox O2 Delivery O2 Flow Rate FiO2 07/11/17 13:00 93 23 120/56 99 Mechanical Ventilator 35 07/11/17 12:41 88 21 35 07/11/17 12:00 35 07/11/17 12:00 85 07/11/17 12:00 98.9 92 20 126/66 100 Mechanical Ventilator 35 07/11/17 11:10 35 07/11/17 11:06 95 23 35 07/11/17 11:00 91 21 112/55 97 Mechanical Ventilator 35 07/11/17 10:00 95 15 128/63 100 Mechanical Ventilator 35 07/11/17 09:20 100 07/11/17 09:20 35 07/11/17 09:20 80 20 35 07/11/17 09:00 98.8 94 15 122/63 100 Mechanical Ventilator 35 07/11/17 08:00 79 15 114/54 100 Mechanical Ventilator 35 07/11/17 08:00 35 07/11/17 08:00 72 07/11/17 07:01 74 15 35 07/11/17 07:00 79 14 109/52 100 Mechanical Ventilator 35 07/11/17 06:00 72 15 94/49 100 Mechanical Ventilator 35 07/11/17 05:18 87 25 35 07/11/17 05:00 86 18 110/72 100 Mechanical Ventilator 35 07/11/17 04:00 98.7 85 22 143/67 100 Mechanical Ventilator 35 07/11/17 04:00 35 07/11/17 03:30 88 27 35 07/11/17 03:23 73 07/11/17 03:00 80 18 133/95 100 Mechanical Ventilator 35 07/11/17 02:00 73 15 96/45 100 Mechanical Ventilator 35 07/11/17 01:30 84 18 35 07/11/17 01:00 81 18 123/56 100 Mechanical Ventilator 35 07/11/17 00:00 98.6 80 18 106/39 100 Mechanical Ventilator 35 07/11/17 00:00 35 07/10/17 23:51 76 07/10/17 23:00 79 17 103/50 99 Mechanical Ventilator 35 07/10/17 22:47 87 19 35 07/10/17 22:00 87 18 114/57 99 Mechanical Ventilator 35 07/10/17 21:31 111/57 07/10/17 21:30 81 19 35 07/10/17 21:00 82 19 111/57 99 Mechanical Ventilator 35 07/10/17 20:00 98.0 91 19 128/62 99 Mechanical Ventilator 35 07/10/17 20:00 35 07/10/17 19:42 91 07/10/17 19:30 87 18 35 07/10/17 19:00 91 20 121/68 99 Mechanical Ventilator 35 07/10/17 18:00 91 18 125/64 100 Mechanical Ventilator 35 07/10/17 17:00 96 16 115/74 100 Mechanical Ventilator 35 07/10/17 16:49 100 22 35 07/10/17 16:00 99.2 108 24 132/66 100 Mechanical Ventilator 35 07/10/17 16:00 35 07/10/17 16:00 106 07/10/17 15:03 92 22 35 07/10/17 15:00 90 17 123/58 100 Mechanical Ventilator 35 07/10/17 14:00 96 20 140/67 100 Mechanical Ventilator 35 Height (Feet): 6 Weight (Pounds): 189 HEENT: other - orally intubated Respiratory/Chest: lungs clear, other - on ventilator Cardiovascular: normal rate, other - RIJ central line Abdomen: soft, non tender, other - GT feeding Extremities: no edema Neurologic/Psychiatric: unresponsiveness Laboratory Tests Test 07/11/17 12:20 Arterial Blood pH 7.446 (7.350-7.450) Arterial Blood Partial Pressure CO2 45.9 mmHg (35.0-45.0) H Arterial Blood Partial Pressure O2 120.2 mmHg (75.0-100.0) H Arterial Blood HCO3 30.9 mmol/L (22.0-26.0) H Arterial Blood Oxygen Saturation 98.0 % (92.0-98.0) Arterial Blood Base Excess 6.1 Myron Test Positive Current Medications Medications (Trade) Dose Ordered Sig/Matt Route PRN Reason Start Time Stop Time Status Last Admin Dose Admin Acetaminophen (Tylenol) 650 mg Q4H PRN GT Mild Pain (1-3) 07/02/17 19:00 08/01/17 18:59 07/05/17 09:12 Aspirin (ASA) 81 mg DAILY GT 07/03/17 09:00 08/02/17 08:59 07/11/17 09:19 Chlorhexidine Gluconate (Mari-Hex 2%) 1 applic DAILY@2000 TOPIC 07/03/17 20:00 08/02/17 19:59 07/10/17 19:40 Dextrose (Dextrose 50%) STAT PRN IV Hypoglycemia 07/02/17 19:00 08/01/17 18:59 Enoxaparin Sodium (Lovenox) 80 mg Q12HR SUBQ 07/09/17 21:00 08/08/17 20:59 07/11/17 09:21 Famotidine (Pepcid I.v.) 20 mg Q12HR IVP 07/05/17 23:00 08/04/17 22:59 07/11/17 09:19 Insulin Aspart (NovoLOG) Q6HR SUBQ 07/04/17 00:00 08/01/17 20:59 07/11/17 12:05 Insulin Detemir (Levemir) 10 units BID SUBQ 07/10/17 09:00 08/09/17 08:59 07/11/17 09:22 Midodrine (Pro-Amatine) 10 mg THREE TIMES A DAY GT 07/11/17 13:00 08/10/17 12:59 Norepinephrine Bitartrate 4 mg/ Dextrose 250 ml @ 0 mls/hr Q24H IV 07/02/17 21:31 08/01/17 21:30 07/05/17 10:12 Ondansetron HCl (Zofran) 4 mg Q6H PRN GT Nausea & Vomiting 07/02/17 19:00 08/01/17 18:59 Pantoprazole (Protonix) 40 mg DAILY IV 07/03/17 09:00 08/02/17 08:59 07/11/17 09:19 Piperacillin Sod/ Tazobactam Sod 3.375 gm/Dextrose 55 ml @ 13.75 mls/ hr EVERY 8 HOURS IVPB 07/02/17 23:00 07/12/17 22:59 07/11/17 05:35 Vancomycin HCl (Vanco rx to dose) 1 ea DAILY PRN MISC RX TO DOSE PROTOCOL 07/02/17 19:00 08/01/17 18:59 Vancomycin/Sodium Chloride 250 ml @ 166.667 mls/hr Q12HR@0600,1800 IVPB 07/08/17 18:00 07/13/17 17:59 07/11/17 05:35 Vitamin A/Vitamin D (A & D Oint) 1 applic EVERY 12 HOURS TOPIC 07/04/17 21:00 08/03/17 20:59 07/11/17 09:19 BREANNE CERVANTES Jul 11, 2017 13:42
--- NOTE | 2017-07-11 13:56 | General Progress Note ---
Assessment/Plan Assessment/Plan Assessment - OBS - dysphagia / GT - prostate CA - anemia - OB (+) --> need to discuss w/u - s/p Suprapubic catheter - DM - Leukocytosis Recommendations - GT feeding - follow residuals - Elevate HOB - monitor H&H - No famly per pt friend - will ask EXERCISE MANAGER to investigate - PPI - abx Subjective Allergies: Coded Allergies: No Known Allergies (Verified , 09/26/12) Subjective above noted d/w RN tolerating feeds non communicative Objective Last 24 Hour Vital Signs Date Time Temp Pulse Resp B/P (MAP) Pulse Ox O2 Delivery O2 Flow Rate FiO2 07/11/17 13:00 93 23 120/56 99 Mechanical Ventilator 35 07/11/17 12:41 88 21 35 07/11/17 12:00 35 07/11/17 12:00 85 07/11/17 12:00 98.9 92 20 126/66 100 Mechanical Ventilator 35 07/11/17 11:10 35 07/11/17 11:06 95 23 35 07/11/17 11:00 91 21 112/55 97 Mechanical Ventilator 35 07/11/17 10:00 95 15 128/63 100 Mechanical Ventilator 35 07/11/17 09:20 100 07/11/17 09:20 35 07/11/17 09:20 80 20 35 07/11/17 09:00 98.8 94 15 122/63 100 Mechanical Ventilator 35 07/11/17 08:00 79 15 114/54 100 Mechanical Ventilator 35 07/11/17 08:00 35 07/11/17 08:00 72 07/11/17 07:01 74 15 35 07/11/17 07:00 79 14 109/52 100 Mechanical Ventilator 35 07/11/17 06:00 72 15 94/49 100 Mechanical Ventilator 35 07/11/17 05:18 87 25 35 07/11/17 05:00 86 18 110/72 100 Mechanical Ventilator 35 07/11/17 04:00 98.7 85 22 143/67 100 Mechanical Ventilator 35 07/11/17 04:00 35 07/11/17 03:30 88 27 35 07/11/17 03:23 73 07/11/17 03:00 80 18 133/95 100 Mechanical Ventilator 35 07/11/17 02:00 73 15 96/45 100 Mechanical Ventilator 35 07/11/17 01:30 84 18 35 07/11/17 01:00 81 18 123/56 100 Mechanical Ventilator 35 07/11/17 00:00 98.6 80 18 106/39 100 Mechanical Ventilator 35 07/11/17 00:00 35 07/10/17 23:51 76 07/10/17 23:00 79 17 103/50 99 Mechanical Ventilator 35 07/10/17 22:47 87 19 35 07/10/17 22:00 87 18 114/57 99 Mechanical Ventilator 35 07/10/17 21:31 111/57 07/10/17 21:30 81 19 35 07/10/17 21:00 82 19 111/57 99 Mechanical Ventilator 35 07/10/17 20:00 98.0 91 19 128/62 99 Mechanical Ventilator 35 07/10/17 20:00 35 07/10/17 19:42 91 07/10/17 19:30 87 18 35 07/10/17 19:00 91 20 121/68 99 Mechanical Ventilator 35 07/10/17 18:00 91 18 125/64 100 Mechanical Ventilator 35 07/10/17 17:00 96 16 115/74 100 Mechanical Ventilator 35 07/10/17 16:49 100 22 35 07/10/17 16:00 99.2 108 24 132/66 100 Mechanical Ventilator 35 07/10/17 16:00 35 07/10/17 16:00 106 07/10/17 15:03 92 22 35 07/10/17 15:00 90 17 123/58 100 Mechanical Ventilator 35 07/10/17 14:00 96 20 140/67 100 Mechanical Ventilator 35 Intake and Output 07/11/17 07/12/17 19:00 07:00 Intake Total 421.25 ml Output Total 830 ml Balance -408.75 ml IV Total 41.25 ml Tube Feeding 330 ml Other 50 ml Output Urine Total 830 ml Laboratory Tests 07/11/17 12:20: Arterial Blood pH 7.446, Arterial Blood Partial Pressure CO2 45.9H, Arterial Blood Partial Pressure O2 120.2H, Arterial Blood HCO3 30.9H, Arterial Blood Oxygen Saturation 98.0, Arterial Blood Base Excess 6.1, Myron Test Positive Height (Feet): 6 Weight (Pounds): 189 Objective Eldely WM NCAT, (+) ETT supple, (+ ) IJ catheter CTA RR soft flat, (+) GT, (+) SP catheter no edema OBS CURTIS GARCIA Jul 11, 2017 13:56
--- NOTE | 2017-07-11 17:16 | General Progress Note ---
Assessment/Plan Problem List: (1) Diabetes mellitus ICD Codes: E11.9 - Type 2 diabetes mellitus without complications SNOMED: 98720565 (2) ATN (acute tubular necrosis) ICD Codes: N17.0 - Acute kidney failure with tubular necrosis SNOMED: 62989931 (3) G tube feedings ICD Codes: Z93.1 - Gastrostomy status SNOMED: 273140666, 686836230 (4) Dementia ICD Codes: F03.90 - Unspecified dementia without behavioral disturbance SNOMED: 00553802 (5) Respiratory distress ICD Codes: R06.03 - Acute respiratory distress SNOMED: 456112754 (6) Suprapubic catheter ICD Codes: Z93.59 - Other cystostomy status SNOMED: 435958240, 107021434 Assessment/Plan continue Levemir 10 units bid continue Novolog sliding scale Subjective ROS Limited/Unobtainable: Yes Allergies: Coded Allergies: No Known Allergies (Verified , 09/26/12) Subjective events noted intubated in ICU on TF Objective Last 24 Hour Vital Signs Date Time Temp Pulse Resp B/P (MAP) Pulse Ox O2 Delivery O2 Flow Rate FiO2 07/11/17 17:10 96 25 35 07/11/17 17:00 88 30 102/49 100 Mechanical Ventilator 35 07/11/17 16:00 98.7 91 24 130/66 100 Mechanical Ventilator 35 07/11/17 16:00 35 07/11/17 16:00 90 07/11/17 15:17 81 21 35 07/11/17 15:00 83 21 107/48 99 Mechanical Ventilator 35 07/11/17 14:00 86 21 118/80 98 Mechanical Ventilator 35 07/11/17 14:00 35 07/11/17 13:50 35 07/11/17 13:00 93 23 120/56 99 Mechanical Ventilator 35 07/11/17 12:41 88 21 35 07/11/17 12:00 35 07/11/17 12:00 85 07/11/17 12:00 98.9 92 20 126/66 100 Mechanical Ventilator 35 07/11/17 11:10 35 07/11/17 11:06 95 23 35 07/11/17 11:00 91 21 112/55 97 Mechanical Ventilator 35 07/11/17 10:00 95 15 128/63 100 Mechanical Ventilator 35 07/11/17 09:20 100 07/11/17 09:20 35 07/11/17 09:20 80 20 35 07/11/17 09:00 98.8 94 15 122/63 100 Mechanical Ventilator 35 07/11/17 08:00 79 15 114/54 100 Mechanical Ventilator 35 07/11/17 08:00 35 07/11/17 08:00 72 07/11/17 07:01 74 15 35 07/11/17 07:00 79 14 109/52 100 Mechanical Ventilator 35 07/11/17 06:00 72 15 94/49 100 Mechanical Ventilator 35 07/11/17 05:18 87 25 35 07/11/17 05:00 86 18 110/72 100 Mechanical Ventilator 35 07/11/17 04:00 98.7 85 22 143/67 100 Mechanical Ventilator 35 07/11/17 04:00 35 07/11/17 03:30 88 27 35 07/11/17 03:23 73 07/11/17 03:00 80 18 133/95 100 Mechanical Ventilator 35 07/11/17 02:00 73 15 96/45 100 Mechanical Ventilator 35 07/11/17 01:30 84 18 35 07/11/17 01:00 81 18 123/56 100 Mechanical Ventilator 35 07/11/17 00:00 98.6 80 18 106/39 100 Mechanical Ventilator 35 07/11/17 00:00 35 07/10/17 23:51 76 07/10/17 23:00 79 17 103/50 99 Mechanical Ventilator 35 07/10/17 22:47 87 19 35 07/10/17 22:00 87 18 114/57 99 Mechanical Ventilator 35 07/10/17 21:31 111/57 07/10/17 21:30 81 19 35 07/10/17 21:00 82 19 111/57 99 Mechanical Ventilator 35 07/10/17 20:00 98.0 91 19 128/62 99 Mechanical Ventilator 35 07/10/17 20:00 35 07/10/17 19:42 91 07/10/17 19:30 87 18 35 07/10/17 19:00 91 20 121/68 99 Mechanical Ventilator 35 07/10/17 18:00 91 18 125/64 100 Mechanical Ventilator 35 Intake and Output 07/11/17 07/12/17 19:00 07:00 Intake Total 610.00 ml Output Total 1280 ml Balance -670.00 ml IV Total 65.00 ml Tube Feeding 495 ml Other 50 ml Output Urine Total 1280 ml Laboratory Tests 07/11/17 12:20: Arterial Blood pH 7.446, Arterial Blood Partial Pressure CO2 45.9H, Arterial Blood Partial Pressure O2 120.2H, Arterial Blood HCO3 30.9H, Arterial Blood Oxygen Saturation 98.0, Arterial Blood Base Excess 6.1, Myron Test Positive Height (Feet): 6 Weight (Pounds): 189 General Appearance: moderate distress Neck: normal alignment Respiratory/Chest: decreased breath sounds Genitourinary/Rectal: normal genital exam Edema: 1+ Arm (L), 1+ Arm (R), 1+ Leg (L), 1+ Leg (R), 1+ Pedal (L), 1+ Pedal ( R), 1+ Generalized Objective Current Medications Medications (Trade) Dose Ordered Sig/Matt Route PRN Reason Start Time Stop Time Status Last Admin Dose Admin Acetaminophen (Tylenol) 650 mg Q4H PRN GT Mild Pain (1-3) 07/02/17 19:00 08/01/17 18:59 07/05/17 09:12 Aspirin (ASA) 81 mg DAILY GT 07/03/17 09:00 08/02/17 08:59 07/11/17 09:19 Chlorhexidine Gluconate (Mari-Hex 2%) 1 applic DAILY@2000 TOPIC 07/03/17 20:00 08/02/17 19:59 07/10/17 19:40 Dextrose (Dextrose 50%) STAT PRN IV Hypoglycemia 07/02/17 19:00 08/01/17 18:59 Enoxaparin Sodium (Lovenox) 80 mg Q12HR SUBQ 07/09/17 21:00 08/08/17 20:59 07/11/17 09:21 Famotidine (Pepcid I.v.) 20 mg Q12HR IVP 07/05/17 23:00 08/04/17 22:59 07/11/17 09:19 Insulin Aspart (NovoLOG) Q6HR SUBQ 07/04/17 00:00 08/01/17 20:59 07/11/17 12:05 Insulin Detemir (Levemir) 10 units BID SUBQ 07/10/17 09:00 08/09/17 08:59 07/11/17 09:22 Midodrine (Pro-Amatine) 10 mg THREE TIMES A DAY GT 07/11/17 13:00 08/10/17 12:59 Norepinephrine Bitartrate 4 mg/ Dextrose 250 ml @ 0 mls/hr Q24H IV 07/02/17 21:31 08/01/17 21:30 07/05/17 10:12 Ondansetron HCl (Zofran) 4 mg Q6H PRN GT Nausea & Vomiting 07/02/17 19:00 08/01/17 18:59 Pantoprazole (Protonix) 40 mg DAILY IV 07/03/17 09:00 08/02/17 08:59 07/11/17 09:19 Piperacillin Sod/ Tazobactam Sod 3.375 gm/Dextrose 55 ml @ 13.75 mls/ hr EVERY 8 HOURS IVPB 07/02/17 23:00 07/12/17 22:59 07/11/17 14:23 Vancomycin HCl (Vanco rx to dose) 1 ea DAILY PRN MISC RX TO DOSE PROTOCOL 07/02/17 19:00 08/01/17 18:59 Vancomycin/Sodium Chloride 250 ml @ 166.667 mls/hr Q12HR@0600,1800 IVPB 07/08/17 18:00 07/13/17 17:59 07/11/17 05:35 Vitamin A/Vitamin D (A & D Oint) 1 applic EVERY 12 HOURS TOPIC 07/04/17 21:00 08/03/17 20:59 07/11/17 09:19 Item Value Date Time Bedside Blood Glucose 167 mg/dl H 07/11/17 1205 Bedside Blood Glucose 104 mg/dl 07/11/17 0922 Bedside Blood Glucose 104 mg/dl 07/11/17 0535 Bedside Blood Glucose 121 mg/dl H 07/11/17 0000 MARIA EUGENIA AUGUST Jul 11, 2017 17:16
[2017-07-11] MEDS ORDERED: D5NS 1000ml IV ONE (17:44)
[2017-07-11] MEDS ORDERED: NS 500ML ONE (17:44)
[2017-07-11] MEDS ORDERED: Tubing IV Secondary IV ONE (17:44)
[2017-07-11] MEDS: Dyna-Hex 2% Top Sol 2oz TOPIC SCH (19:42)
--- NOTE | 2017-07-11 22:02 | General Progress Note ---
Assessment/Plan Problem List: (1) COPD (chronic obstructive pulmonary disease) ICD Codes: J44.9 - Chronic obstructive pulmonary disease SNOMED: 65780134 (2) Suprapubic catheter ICD Codes: Z93.59 - Other cystostomy status SNOMED: 911841048, 660507078 (3) Catheter-associated urinary tract infection ICD Codes: T83.511A - Infection and inflammatory reaction due to indwelling urethral catheter, initial encounter; N39.0 - Urinary tract infection, site not specified SNOMED: 997117129 (4) Anemia ICD Codes: D64.9 - Anemia, unspecified SNOMED: 479961356 (5) Dementia ICD Codes: F03.90 - Unspecified dementia without behavioral disturbance SNOMED: 37841304 (6) Seizure ICD Codes: R56.9 - Unspecified convulsions SNOMED: 55395707 (7) Prostate cancer ICD Codes: C61 - Malignant neoplasm of prostate SNOMED: 873432844 (8) COPD (chronic obstructive pulmonary disease) ICD Codes: J44.9 - Chronic obstructive pulmonary disease, unspecified SNOMED: 39260737 (9) Respiratory distress ICD Codes: R06.03 - Acute respiratory distress SNOMED: 284152536 (10) Sepsis ICD Codes: A41.9 - Sepsis, unspecified organism SNOMED: 03851571 Status: progressing Assessment/Plan resp failure check labs asp pna dehyration sepsis not much changed ams lethargic Subjective ROS Limited/Unobtainable: Yes Allergies: Coded Allergies: No Known Allergies (Verified , 09/26/12) Objective Last 24 Hour Vital Signs Date Time Temp Pulse Resp B/P (MAP) Pulse Ox O2 Delivery O2 Flow Rate FiO2 07/11/17 20:00 35 07/11/17 20:00 98.6 82 16 94/42 99 Mechanical Ventilator 35 07/11/17 19:30 75 17 35 07/11/17 19:00 82 20 103/51 99 Mechanical Ventilator 35 07/11/17 18:00 88 20 122/56 99 Mechanical Ventilator 35 07/11/17 17:10 96 25 35 07/11/17 17:00 88 30 102/49 100 Mechanical Ventilator 35 07/11/17 16:00 98.7 91 24 130/66 100 Mechanical Ventilator 35 07/11/17 16:00 35 07/11/17 16:00 90 07/11/17 15:17 81 21 35 07/11/17 15:00 83 21 107/48 99 Mechanical Ventilator 35 07/11/17 14:00 86 21 118/80 98 Mechanical Ventilator 35 07/11/17 14:00 35 07/11/17 13:50 35 07/11/17 13:00 93 23 120/56 99 Mechanical Ventilator 35 07/11/17 12:41 88 21 35 07/11/17 12:00 35 07/11/17 12:00 85 07/11/17 12:00 98.9 92 20 126/66 100 Mechanical Ventilator 35 07/11/17 11:10 35 07/11/17 11:06 95 23 35 07/11/17 11:00 91 21 112/55 97 Mechanical Ventilator 35 07/11/17 10:00 95 15 128/63 100 Mechanical Ventilator 35 07/11/17 09:20 100 07/11/17 09:20 35 07/11/17 09:20 80 20 35 07/11/17 09:00 98.8 94 15 122/63 100 Mechanical Ventilator 35 07/11/17 08:00 79 15 114/54 100 Mechanical Ventilator 35 07/11/17 08:00 35 07/11/17 08:00 72 07/11/17 07:01 74 15 35 07/11/17 07:00 79 14 109/52 100 Mechanical Ventilator 35 07/11/17 06:00 72 15 94/49 100 Mechanical Ventilator 35 07/11/17 05:18 87 25 35 07/11/17 05:00 86 18 110/72 100 Mechanical Ventilator 35 07/11/17 04:00 98.7 85 22 143/67 100 Mechanical Ventilator 35 07/11/17 04:00 35 07/11/17 03:30 88 27 35 07/11/17 03:23 73 07/11/17 03:00 80 18 133/95 100 Mechanical Ventilator 35 07/11/17 02:00 73 15 96/45 100 Mechanical Ventilator 35 07/11/17 01:30 84 18 35 07/11/17 01:00 81 18 123/56 100 Mechanical Ventilator 35 07/11/17 00:00 98.6 80 18 106/39 100 Mechanical Ventilator 35 07/11/17 00:00 35 07/10/17 23:51 76 07/10/17 23:00 79 17 103/50 99 Mechanical Ventilator 35 07/10/17 22:47 87 19 35 Intake and Output 07/11/17 07/12/17 19:00 07:00 Intake Total 1104.667 ml 110 ml Output Total 1730 ml 250 ml Balance -625.333 ml -140 ml Intake Free Water 30 ml IV Total 364.667 ml Tube Feeding 660 ml 110 ml Other 50 ml Output Urine Total 1730 ml 250 ml # Bowel Movements 1 Laboratory Tests 07/11/17 12:20: Arterial Blood pH 7.446, Arterial Blood Partial Pressure CO2 45.9H, Arterial Blood Partial Pressure O2 120.2H, Arterial Blood HCO3 30.9H, Arterial Blood Oxygen Saturation 98.0, Arterial Blood Base Excess 6.1, Myron Test Positive Height (Feet): 6 Weight (Pounds): 189 Cardiovascular: normal rate Respiratory/Chest: lungs clear Abdomen: soft Sary Oakes MD Jul 11, 2017 22:02
--- NOTE | 2017-07-11 22:19 | General Progress Note ---
Assessment/Plan Assessment/Plan ASSESSMENT AND RECOMMENDATIONS: 1. OB positive? rule out GI bleed. H/H stable 2. Prostate cancer, controlled at this time. Current PSA of 5.6. With suprapubic catheter 3. Leukocytosis, secondary to underlying infection, infiltrates noted.ID following. --> wbc count has normalized. 4. Anemia, rule out gastrointestinal bleed. Ferritin wnl. 5. Sepsis resolved 6. Respiratory failure. On a vent. Pulmonology following, currently not able to wean Subjective Hematologic/Lymphatic: Reports: anemia Allergies: Coded Allergies: No Known Allergies (Verified , 09/26/12) All Systems: reviewed and negative except above Subjective NAD Objective Last 24 Hour Vital Signs Date Time Temp Pulse Resp B/P (MAP) Pulse Ox O2 Delivery O2 Flow Rate FiO2 07/11/17 22:00 75 16 90/45 99 Mechanical Ventilator 35 07/11/17 21:30 88 20 35 07/11/17 21:00 77 15 107/50 99 Mechanical Ventilator 35 07/11/17 20:00 35 07/11/17 20:00 98.6 82 16 94/42 99 Mechanical Ventilator 35 07/11/17 19:30 75 17 35 07/11/17 19:07 86 07/11/17 19:00 82 20 103/51 99 Mechanical Ventilator 35 07/11/17 18:00 88 20 122/56 99 Mechanical Ventilator 35 07/11/17 17:10 96 25 35 07/11/17 17:00 88 30 102/49 100 Mechanical Ventilator 35 07/11/17 16:00 98.7 91 24 130/66 100 Mechanical Ventilator 35 07/11/17 16:00 35 07/11/17 16:00 90 07/11/17 15:17 81 21 35 07/11/17 15:00 83 21 107/48 99 Mechanical Ventilator 35 07/11/17 14:00 86 21 118/80 98 Mechanical Ventilator 35 07/11/17 14:00 35 07/11/17 13:50 35 07/11/17 13:00 93 23 120/56 99 Mechanical Ventilator 35 07/11/17 12:41 88 21 35 07/11/17 12:00 35 07/11/17 12:00 85 07/11/17 12:00 98.9 92 20 126/66 100 Mechanical Ventilator 35 07/11/17 11:10 35 07/11/17 11:06 95 23 35 07/11/17 11:00 91 21 112/55 97 Mechanical Ventilator 35 07/11/17 10:00 95 15 128/63 100 Mechanical Ventilator 35 07/11/17 09:20 100 07/11/17 09:20 35 07/11/17 09:20 80 20 35 07/11/17 09:00 98.8 94 15 122/63 100 Mechanical Ventilator 35 07/11/17 08:00 79 15 114/54 100 Mechanical Ventilator 35 07/11/17 08:00 35 07/11/17 08:00 72 07/11/17 07:01 74 15 35 07/11/17 07:00 79 14 109/52 100 Mechanical Ventilator 35 07/11/17 06:00 72 15 94/49 100 Mechanical Ventilator 35 07/11/17 05:18 87 25 35 07/11/17 05:00 86 18 110/72 100 Mechanical Ventilator 35 07/11/17 04:00 98.7 85 22 143/67 100 Mechanical Ventilator 35 07/11/17 04:00 35 07/11/17 03:30 88 27 35 07/11/17 03:23 73 07/11/17 03:00 80 18 133/95 100 Mechanical Ventilator 35 07/11/17 02:00 73 15 96/45 100 Mechanical Ventilator 35 07/11/17 01:30 84 18 35 07/11/17 01:00 81 18 123/56 100 Mechanical Ventilator 35 07/11/17 00:00 98.6 80 18 106/39 100 Mechanical Ventilator 35 07/11/17 00:00 35 07/10/17 23:51 76 07/10/17 23:00 79 17 103/50 99 Mechanical Ventilator 35 07/10/17 22:47 87 19 35 Intake and Output 07/11/17 07/12/17 19:00 07:00 Intake Total 1104.667 ml 165 ml Output Total 1730 ml 390 ml Balance -625.333 ml -225 ml Intake Free Water 30 ml IV Total 364.667 ml Tube Feeding 660 ml 165 ml Other 50 ml Output Urine Total 1730 ml 390 ml # Bowel Movements 1 Laboratory Tests 07/11/17 12:20: Arterial Blood pH 7.446, Arterial Blood Partial Pressure CO2 45.9H, Arterial Blood Partial Pressure O2 120.2H, Arterial Blood HCO3 30.9H, Arterial Blood Oxygen Saturation 98.0, Arterial Blood Base Excess 6.1, Myron Test Positive Height (Feet): 6 Weight (Pounds): 189 General Appearance: no apparent distress EENT: normal ENT inspection Neck: normal alignment Genitourinary/Rectal: normal genital exam Extremities: normal range of motion Skin: normal pigmentation Jose Luis Rendon Jul 11, 2017 22:19
--- NOTE | 2017-07-11 22:54 | Wound Care Consultation ---
Wound Assessment Wound Assessment #1: Wound Present on Admission: No New Wound: No Status Change of Wound: No Wound Location Body Site Modif: right, plantar Wound Location Body Site: foot Wound Type: rash - with dry flaky skin Bruce Test: Does not Bruce Wound Thickness: Partial Thickness Percent of Wound Creighton/Red: 100 Wound Drainage Amount: None Wound Drainage Odor: None/Absent Tissue Surrounding Wound: Intact Wound General Appearance: Reddened Wound Assessment #2: Wound Number: 2 Wound Present on Admission: Yes New Wound: No Status Change of Wound: No Wound Location Body Site Modif: left Wound Location Body Site: heel Wound Type: pressure ulcer Bruce Test: Does not Bruce Pressure Ulcer Stage: Unstageable Wound Thickness: Full Thickness Wound Length: 2.0 Wound Width: 2.0 Wound Depth: utd Percent of Wound Bed Yellow/Wh: 100 - dry Wound Drainage Amount: None Wound Drainage Odor: None/Absent Tissue Surrounding Wound: Erythemic Wound General Appearance: Reddened - yellow dry scab Wound Assessment #3: Wound Number: 3 Wound Present on Admission: Yes New Wound: No Status Change of Wound: No Wound Location Body Site: perineal area Wound Type: chemical burn - with erosion Bruce Test: Does not Bruce Wound Thickness: Partial Thickness Percent of Wound Creighton/Red: 100 Wound Drainage Amount: None Wound Drainage Odor: None/Absent Tissue Surrounding Wound: Erythemic Wound General Appearance: Reddened Wound Assessment #4: Wound Number: 4 Wound Present on Admission: Yes New Wound: No Status Change of Wound: No Wound Location Body Site Modif: left, lateral Wound Location Body Site: metatarsal head - 5th Wound Type: pressure ulcer Bruce Test: Does not Bruce Pressure Ulcer Stage: Deep Tissue Injury Wound Thickness: Full Thickness Wound Length: 3.5 Wound Width: 3.0 Wound Depth: utd Percent of Wound Creighton/Red: 50 Percent of Wound Purple/Maroon: 50 Wound Drainage Amount: None Wound Drainage Odor: None/Absent Tissue Surrounding Wound: Intact Wound General Appearance: Reddened - purple Wound Assessment #5: Wound Number: 5 Wound Present on Admission: Yes New Wound: No Status Change of Wound: No Wound Location Body Site Modif: mid Wound Location Body Site: other - sacrococcygeal Wound Type: pressure ulcer Bruce Test: Does not Bruce Pressure Ulcer Stage: II - Resoving scattered Wound Thickness: Partial Thickness Wound Length: 2.5 Wound Width: 2.5 Wound Depth: less than 0.1 Percent of Wound Creighton/Red: 100 Wound Drainage Description: Serosanguineous Wound Drainage Amount: None Wound Drainage Odor: None/Absent Tissue Surrounding Wound: full thickness scar tissue Wound General Appearance: Reddened Wound Assessment #6: Wound Number: 6 Wound Present on Admission: No New Wound: Yes Status Change of Wound: No Wound Location Body Site Modif: left, anterior Wound Location Body Site: knee Bruce Test: Does not Bruce Traumatic Injury Wounds: Abrasion Wound Thickness: Partial Thickness Wound Length: 1.0 Wound Width: 1.0 Wound Depth: less than 0.1 Percent of Wound Creighton/Red: 100 Wound Drainage Description: Serosanguineous Wound Drainage Amount: Scant Wound Drainage Odor: None/Absent Tissue Surrounding Wound: Erythemic Wound General Appearance: Reddened, Draining Wound Comment #1 Sacrococcygeal scattered stage II pressure ulcer. Resolving. Good progress noted. #2 Left lateral 5th metatarsal head DTI pressure ulcer. Resolving. Skin still intact. #3 Left heel unstageable pressure ulcer. No deterioration noted. #4 Right plantar foot rashes with dry flaky skin. No deterioration noted. #5 Perineal chemical burn with partial thickness erosion. No deterioration noted. #6 Abrasion with partial thickness skin loss on left anterior knee. Recommendation:- Cleanse with saline pat dry apply Triad cream to wound bed cover with bordered gauze daily and PRN soiled/dislodged Recommendation -Local wound care per protocol -Keep clean and dry -Turn and reposition -Optimize nutrition -Heel protector on both heels -Offload both heels -Low air loss mattress -Assess and f/u accordingly for any changes ROLANDO CLIFFORD RN Jul 11, 2017 22:54
[2017-07-12] VITALS (24 sets, daily range): BP systolic 90–142; BP diastolic 41–100
[2017-07-12] MEDS: Vancomycin 750mg/NS 250ml IVPB SCH (05:35)
[2017-07-12] MEDS: Zoysn 3.37gm in D5W 55ml IVPB SCH (05:36)
[2017-07-12] MEDS: NovoLOG Insulin Flexpen SUBQ SCH ×4 (05:38→23:58)
[2017-07-12] MEDS: Pantoprazole Inj IV SCH (09:16)
[2017-07-12] MEDS: Midodrine 10mg tab GT SCH ×3 (09:16→17:07)
[2017-07-12] MEDS: Aspirin Baby 81mg GT SCH (09:16)
[2017-07-12] MEDS: Enoxaparin 80mg Inj SUBQ SCH ×2 (09:18→20:53)
[2017-07-12] MEDS: Levemir Flexpen SUBQ SCH ×2 (09:19→17:08)
[2017-07-12] MEDS: Vitamin A&D Oint 2oz Tube TOPIC SCH ×2 (09:19→20:54)
--- NOTE | 2017-07-12 09:43 | General Progress Note ---
Assessment/Plan Assessment/Plan Assessment - OBS - dysphagia / GT - prostate CA - anemia - OB (+) --> need to discuss w/u - s/p Suprapubic catheter - DM - Leukocytosis Recommendations - GT feeding - follow residuals - Elevate HOB - monitor H&H - No famly per pt friend - DAIRY HUSBANDMAN to investigate - PPI - abx Subjective Allergies: Coded Allergies: No Known Allergies (Verified , 09/26/12) Subjective above noted d/w RN tolerating feeds non communicative Objective Last 24 Hour Vital Signs Date Time Temp Pulse Resp B/P (MAP) Pulse Ox O2 Delivery O2 Flow Rate FiO2 07/12/17 09:11 93 14 35 07/12/17 09:00 106 20 116/64 100 Mechanical Ventilator 35 07/12/17 08:45 100 07/12/17 08:00 35 07/12/17 08:00 98.8 85 14 122/62 100 Mechanical Ventilator 35 07/12/17 07:05 84 15 35 07/12/17 07:00 85 16 126/62 100 Mechanical Ventilator 35 07/12/17 06:00 86 16 117/54 100 Mechanical Ventilator 35 07/12/17 05:30 98 24 35 07/12/17 05:00 86 20 109/74 100 Mechanical Ventilator 35 07/12/17 04:00 99.0 79 17 116/53 99 Mechanical Ventilator 35 07/12/17 04:00 35 07/12/17 03:31 75 07/12/17 03:30 83 15 35 07/12/17 03:00 74 14 103/47 99 Mechanical Ventilator 35 07/12/17 02:00 74 14 91/54 100 Mechanical Ventilator 35 07/12/17 01:30 79 16 35 07/12/17 01:00 83 16 90/45 99 Mechanical Ventilator 35 07/12/17 00:00 98.7 85 17 125/60 100 Mechanical Ventilator 35 07/11/17 23:30 78 15 35 07/11/17 23:00 80 17 104/53 99 Mechanical Ventilator 35 07/11/17 22:59 80 07/11/17 22:00 75 16 90/45 99 Mechanical Ventilator 35 07/11/17 21:31 109/74 07/11/17 21:30 88 20 35 07/11/17 21:00 77 15 107/50 99 Mechanical Ventilator 35 07/11/17 20:00 35 07/11/17 20:00 98.6 82 16 94/42 99 Mechanical Ventilator 35 07/11/17 19:30 75 17 35 07/11/17 19:07 86 07/11/17 19:00 82 20 103/51 99 Mechanical Ventilator 35 07/11/17 18:00 88 20 122/56 99 Mechanical Ventilator 35 07/11/17 17:10 96 25 35 07/11/17 17:00 88 30 102/49 100 Mechanical Ventilator 35 07/11/17 16:00 98.7 91 24 130/66 100 Mechanical Ventilator 35 07/11/17 16:00 35 07/11/17 16:00 90 07/11/17 15:17 81 21 35 07/11/17 15:00 83 21 107/48 99 Mechanical Ventilator 35 07/11/17 14:00 86 21 118/80 98 Mechanical Ventilator 35 07/11/17 14:00 35 07/11/17 13:50 35 07/11/17 13:00 93 23 120/56 99 Mechanical Ventilator 35 07/11/17 12:41 88 21 35 07/11/17 12:00 35 07/11/17 12:00 85 07/11/17 12:00 98.9 92 20 126/66 100 Mechanical Ventilator 35 07/11/17 11:10 35 07/11/17 11:06 95 23 35 07/11/17 11:00 91 21 112/55 97 Mechanical Ventilator 35 07/11/17 10:00 95 15 128/63 100 Mechanical Ventilator 35 Intake and Output 07/12/17 07/13/17 19:00 07:00 Intake Total 110 ml Output Total 220 ml Balance -110 ml Tube Feeding 110 ml Output Urine Total 220 ml Laboratory Tests 07/11/17 12:20: Arterial Blood pH 7.446, Arterial Blood Partial Pressure CO2 45.9H, Arterial Blood Partial Pressure O2 120.2H, Arterial Blood HCO3 30.9H, Arterial Blood Oxygen Saturation 98.0, Arterial Blood Base Excess 6.1, Myron Test Positive Height (Feet): 6 Weight (Pounds): 187 Objective Eldely WM NCAT, (+) ETT supple, (+ ) IJ catheter CTA RR soft flat, (+) GT, (+) SP catheter no edema OBS CURTIS GARCIA Jul 12, 2017 09:43
[2017-07-12 11:02] LABS: BASOPHILS % (AUTO) 1.1 % (0.0-2.0); EOSINOPHILS % (AUTO) 6.9 % (0.0-3.0); LYMPHOCYTES % (AUTO) 13.1 % (20.0-45.0); MEAN CORPUSCULAR HEMOGLOBIN 29.4 PG (27.0-31.0); MEAN CORPUSCULAR VOLUME 92 FL (80-99); MEAN PLATELET VOLUME 7.5 FL (6.5-10.1); MONOCYTES % (AUTO) 9.2 % (1.0-10.0); NEUTROPHILS % (AUTO) 69.7 % (45.0-75.0); PLATELET COUNT 431 K/UL (150-450); RED BLOOD COUNT 3.07 M/UL (4.70-6.10); RED CELL DISTRIBUTION WIDTH 13.1 % (11.6-14.8); WHITE BLOOD COUNT 6.3 K/UL (4.8-10.8)
[2017-07-12 11:17] LABS: ANION GAP 3 mmol/L (5-15); CALCIUM 8.4 MG/DL (8.5-10.1); CARBON DIOXIDE 33 MMOL/L (21-32); CHLORIDE 107 MMOL/L (98-107); CREATININE 0.8 MG/DL (0.55-1.30); POTASSIUM 4.3 MMOL/L (3.5-5.1); SODIUM 143 MMOL/L (136-145)
[2017-07-12 11:27] LABS: IRON 13 ug/dL (50-175); TOTAL IRON BINDING CAPACITY 154 ug/dL (250-450)
[2017-07-12 11:28] LABS: ALANINE AMINOTRANSFERASE 9 U/L (12-78); ASPARTATE AMINO TRANSFERASE 12 U/L (15-37); BILIRUBIN,DIRECT 0.1 MG/DL (0.0-0.3); MAGNESIUM 1.9 MG/DL (1.8-2.4); PHOSPHORUS 3.5 MG/DL (2.5-4.9); TOTAL PROTEIN 5.5 G/DL (6.4-8.2)
--- NOTE | 2017-07-12 12:09 | Infectious Diseases Prog Note ---
Assessment/Plan Assessment/Plan A; Septic Shock resolved Complicated UTI with MRSA & pseudomonas s/p RX Pneumonia treated for 10 days CoANS in blood likely contamination Acute respiratory failure MRSA colonization P; discontinue Vancomycin & Zosyn Venous duplex of legs for DVT Subjective ROS Limited/Unobtainable: Yes Cardiovascular: Reports: other - failed weaning this morning Neurologic: Reports: confusion, other - on restraint Allergies: Coded Allergies: No Known Allergies (Verified , 09/26/12) Objective Vital Signs Last 24 Hour Vital Signs Date Time Temp Pulse Resp B/P (MAP) Pulse Ox O2 Delivery O2 Flow Rate FiO2 07/12/17 09:11 93 14 35 07/12/17 09:00 106 20 116/64 100 Mechanical Ventilator 35 07/12/17 08:45 100 07/12/17 08:00 112 07/12/17 08:00 35 07/12/17 08:00 98.8 85 14 122/62 100 Mechanical Ventilator 35 07/12/17 07:05 84 15 35 07/12/17 07:00 85 16 126/62 100 Mechanical Ventilator 35 07/12/17 06:00 86 16 117/54 100 Mechanical Ventilator 35 07/12/17 05:30 98 24 35 07/12/17 05:00 86 20 109/74 100 Mechanical Ventilator 35 07/12/17 04:00 99.0 79 17 116/53 99 Mechanical Ventilator 35 07/12/17 04:00 35 07/12/17 03:31 75 07/12/17 03:30 83 15 35 07/12/17 03:00 74 14 103/47 99 Mechanical Ventilator 35 07/12/17 02:00 74 14 91/54 100 Mechanical Ventilator 35 07/12/17 01:30 79 16 35 07/12/17 01:00 83 16 90/45 99 Mechanical Ventilator 35 07/12/17 00:00 98.7 85 17 125/60 100 Mechanical Ventilator 35 07/11/17 23:30 78 15 35 07/11/17 23:00 80 17 104/53 99 Mechanical Ventilator 35 07/11/17 22:59 80 07/11/17 22:00 75 16 90/45 99 Mechanical Ventilator 35 07/11/17 21:31 109/74 07/11/17 21:30 88 20 35 07/11/17 21:00 77 15 107/50 99 Mechanical Ventilator 35 07/11/17 20:00 35 07/11/17 20:00 98.6 82 16 94/42 99 Mechanical Ventilator 35 07/11/17 19:30 75 17 35 07/11/17 19:07 86 07/11/17 19:00 82 20 103/51 99 Mechanical Ventilator 35 07/11/17 18:00 88 20 122/56 99 Mechanical Ventilator 35 07/11/17 17:10 96 25 35 07/11/17 17:00 88 30 102/49 100 Mechanical Ventilator 35 07/11/17 16:00 98.7 91 24 130/66 100 Mechanical Ventilator 35 07/11/17 16:00 35 07/11/17 16:00 90 07/11/17 15:17 81 21 35 07/11/17 15:00 83 21 107/48 99 Mechanical Ventilator 35 07/11/17 14:00 86 21 118/80 98 Mechanical Ventilator 35 07/11/17 14:00 35 07/11/17 13:50 35 07/11/17 13:00 93 23 120/56 99 Mechanical Ventilator 35 07/11/17 12:41 88 21 35 Height (Feet): 6 Weight (Pounds): 187 HEENT: other - orally intubated Respiratory/Chest: other - on ventilator ,coarse sounds Cardiovascular: normal rate Abdomen: soft, non tender, other - GT feeding Extremities: other - edema of legs Laboratory Tests Test 07/11/17 12:20 07/12/17 10:00 Arterial Blood pH 7.446 (7.350-7.450) Arterial Blood Partial Pressure CO2 45.9 mmHg (35.0-45.0) H Arterial Blood Partial Pressure O2 120.2 mmHg (75.0-100.0) H Arterial Blood HCO3 30.9 mmol/L (22.0-26.0) H Arterial Blood Oxygen Saturation 98.0 % (92.0-98.0) Arterial Blood Base Excess 6.1 Myron Test Positive White Blood Count 6.3 K/UL (4.8-10.8) Red Blood Count 3.07 M/UL (4.70-6.10) L Hemoglobin 9.0 G/DL (14.2-18.0) L Hematocrit 28.2 % (42.0-52.0) L Mean Corpuscular Volume 92 FL (80-99) Mean Corpuscular Hemoglobin 29.4 PG (27.0-31.0) Mean Corpuscular Hemoglobin Concent 32.0 G/DL (32.0-36.0) Red Cell Distribution Width 13.1 % (11.6-14.8) Platelet Count 431 K/UL (150-450) Mean Platelet Volume 7.5 FL (6.5-10.1) Neutrophils (%) (Auto) 69.7 % (45.0-75.0) Lymphocytes (%) (Auto) 13.1 % (20.0-45.0) L Monocytes (%) (Auto) 9.2 % (1.0-10.0) Eosinophils (%) (Auto) 6.9 % (0.0-3.0) H Basophils (%) (Auto) 1.1 % (0.0-2.0) Sodium Level 143 MMOL/L (136-145) Potassium Level 4.3 MMOL/L (3.5-5.1) Chloride Level 107 MMOL/L (98-107) Carbon Dioxide Level 33 MMOL/L (21-32) H Anion Gap 3 mmol/L (5-15) L Blood Urea Nitrogen 14 mg/dL (7-18) Creatinine 0.8 MG/DL (0.55-1.30) Estimat Glomerular Filtration Rate mL/min (>60) Glucose Level 156 MG/DL (74-106) H Calcium Level 8.4 MG/DL (8.5-10.1) L Phosphorus Level 3.5 MG/DL (2.5-4.9) Magnesium Level 1.9 MG/DL (1.8-2.4) Iron Level 13 ug/dL (50-175) L Total Iron Binding Capacity 154 ug/dL (250-450) L Percent Iron Saturation 8 % (15-50) L Unsaturated Iron Binding 141 ug/dL (112-346) Total Bilirubin 0.2 MG/DL (0.2-1.0) Direct Bilirubin 0.1 MG/DL (0.0-0.3) Aspartate Amino Transf (AST/SGOT) 12 U/L (15-37) L Alanine Aminotransferase (ALT/SGPT) 9 U/L (12-78) L Alkaline Phosphatase 75 U/L (46-116) Total Protein 5.5 G/DL (6.4-8.2) L Albumin 1.4 G/DL (3.4-5.0) L Current Medications Medications (Trade) Dose Ordered Sig/Matt Route PRN Reason Start Time Stop Time Status Last Admin Dose Admin Acetaminophen (Tylenol) 650 mg Q4H PRN GT Mild Pain (1-3) 07/02/17 19:00 08/01/17 18:59 07/05/17 09:12 Aspirin (ASA) 81 mg DAILY GT 07/03/17 09:00 08/02/17 08:59 07/12/17 09:16 Chlorhexidine Gluconate (Mari-Hex 2%) 1 applic DAILY@2000 TOPIC 07/03/17 20:00 08/02/17 19:59 07/11/17 19:42 Dextrose (Dextrose 50%) STAT PRN IV Hypoglycemia 07/02/17 19:00 08/01/17 18:59 07/11/17 23:43 Enoxaparin Sodium (Lovenox) 80 mg Q12HR SUBQ 07/09/17 21:00 08/08/17 20:59 07/12/17 09:18 Famotidine (Pepcid I.v.) 20 mg Q12HR IVP 07/05/17 23:00 08/04/17 22:59 07/12/17 09:16 Insulin Aspart (NovoLOG) Q6HR SUBQ 07/04/17 00:00 08/01/17 20:59 07/11/17 17:36 Insulin Detemir (Levemir) 10 units BID SUBQ 07/10/17 09:00 08/09/17 08:59 07/12/17 09:19 Midodrine (Pro-Amatine) 10 mg THREE TIMES A DAY GT 07/11/17 13:00 08/10/17 12:59 07/12/17 09:16 Norepinephrine Bitartrate 4 mg/ Dextrose 250 ml @ 0 mls/hr Q24H IV 07/02/17 21:31 08/01/17 21:30 07/05/17 10:12 Ondansetron HCl (Zofran) 4 mg Q6H PRN GT Nausea & Vomiting 07/02/17 19:00 08/01/17 18:59 Pantoprazole (Protonix) 40 mg DAILY IV 07/03/17 09:00 08/02/17 08:59 07/12/17 09:16 Piperacillin Sod/ Tazobactam Sod 3.375 gm/Dextrose 55 ml @ 13.75 mls/ hr EVERY 8 HOURS IVPB 07/02/17 23:00 07/17/17 22:59 07/12/17 05:36 Vancomycin HCl (Vanco rx to dose) 1 ea DAILY PRN MISC RX TO DOSE PROTOCOL 07/02/17 19:00 08/01/17 18:59 Vancomycin/Sodium Chloride 250 ml @ 166.667 mls/hr Q12HR@0600,1800 IVPB 07/08/17 18:00 07/17/17 17:59 07/12/17 05:35 Vitamin A/Vitamin D (A & D Oint) 1 applic EVERY 12 HOURS TOPIC 07/04/17 21:00 08/03/17 20:59 07/12/17 09:19 BREANNE CERVANTES Jul 12, 2017 12:09
--- NOTE | 2017-07-12 13:54 | Diagnostic Imaging Report ---
Indication: Cough Comparison: 07/10/2017 A single view chest radiograph was obtained. Findings: There is slightly worsening interstitial edema suspected with bilateral pleural effusions. Endotracheal tube is just above the jordon. IMPRESSION: Slightly worsening CHF
--- NOTE | 2017-07-12 15:07 | General Progress Note ---
Assessment/Plan Assessment/Plan ASSESSMENT AND RECOMMENDATIONS: 1. OB positive? rule out GI bleed. H/H stable, GI service following and work up is to follow 2. Prostate cancer, controlled at this time. Current PSA of 5.6. With suprapubic catheter 3. Leukocytosis, secondary to underlying infection, infiltrates noted.ID following. --> wbc count has normalized. 4. Anemia, rule out gastrointestinal bleed. Ferritin wnl. 5. Sepsis resolved 6. Respiratory failure. On a vent. Pulmonology following, currently not able to wean Subjective Allergies: Coded Allergies: No Known Allergies (Verified , 09/26/12) All Systems: reviewed and negative except above Subjective No events overnight Objective Last 24 Hour Vital Signs Date Time Temp Pulse Resp B/P (MAP) Pulse Ox O2 Delivery O2 Flow Rate FiO2 07/12/17 15:00 83 19 131/78 100 Mechanical Ventilator 35 07/12/17 14:00 84 16 122/95 100 Mechanical Ventilator 35 07/12/17 13:20 81 18 35 07/12/17 13:00 82 15 122/95 100 Mechanical Ventilator 35 07/12/17 12:00 96 07/12/17 12:00 35 07/12/17 12:00 98.7 85 15 124/63 100 Mechanical Ventilator 35 07/12/17 11:10 95 22 35 07/12/17 11:00 85 15 124/63 100 Mechanical Ventilator 35 07/12/17 10:00 86 14 113/53 100 Mechanical Ventilator 35 07/12/17 09:11 93 14 35 07/12/17 09:00 106 20 116/64 100 Mechanical Ventilator 35 07/12/17 08:45 100 07/12/17 08:00 112 07/12/17 08:00 35 07/12/17 08:00 82 07/12/17 08:00 98.8 85 14 122/62 100 Mechanical Ventilator 35 07/12/17 07:05 84 15 35 07/12/17 07:00 85 16 126/62 100 Mechanical Ventilator 35 07/12/17 06:00 86 16 117/54 100 Mechanical Ventilator 35 07/12/17 05:30 98 24 35 07/12/17 05:00 86 20 109/74 100 Mechanical Ventilator 35 07/12/17 04:00 99.0 79 17 116/53 99 Mechanical Ventilator 35 07/12/17 04:00 35 07/12/17 03:31 75 07/12/17 03:30 83 15 35 07/12/17 03:00 74 14 103/47 99 Mechanical Ventilator 35 07/12/17 02:00 74 14 91/54 100 Mechanical Ventilator 35 07/12/17 01:30 79 16 35 07/12/17 01:00 83 16 90/45 99 Mechanical Ventilator 35 07/12/17 00:00 98.7 85 17 125/60 100 Mechanical Ventilator 35 07/11/17 23:30 78 15 35 07/11/17 23:00 80 17 104/53 99 Mechanical Ventilator 35 07/11/17 22:59 80 07/11/17 22:00 75 16 90/45 99 Mechanical Ventilator 35 07/11/17 21:31 109/74 07/11/17 21:30 88 20 35 07/11/17 21:00 77 15 107/50 99 Mechanical Ventilator 35 07/11/17 20:00 35 07/11/17 20:00 98.6 82 16 94/42 99 Mechanical Ventilator 35 07/11/17 19:30 75 17 35 07/11/17 19:07 86 07/11/17 19:00 82 20 103/51 99 Mechanical Ventilator 35 07/11/17 18:00 88 20 122/56 99 Mechanical Ventilator 35 07/11/17 17:10 96 25 35 07/11/17 17:00 88 30 102/49 100 Mechanical Ventilator 35 07/11/17 16:00 98.7 91 24 130/66 100 Mechanical Ventilator 35 07/11/17 16:00 35 07/11/17 16:00 90 07/11/17 15:17 81 21 35 Intake and Output 07/12/17 07/13/17 19:00 07:00 Intake Total 467.50 ml Output Total 790 ml Balance -322.50 ml IV Total 27.50 ml Tube Feeding 440 ml Output Urine Total 790 ml Laboratory Tests 07/12/17 10:00: White Blood Count 6.3, Red Blood Count 3.07L, Hemoglobin 9.0L, Hematocrit 28.2L , Mean Corpuscular Volume 92, Mean Corpuscular Hemoglobin 29.4, Mean Corpuscular Hemoglobin Concent 32.0, Red Cell Distribution Width 13.1, Platelet Count 431, Mean Platelet Volume 7.5, Neutrophils (%) (Auto) 69.7, Lymphocytes (% ) (Auto) 13.1L, Monocytes (%) (Auto) 9.2, Eosinophils (%) (Auto) 6.9H, Basophils (%) (Auto) 1.1, Sodium Level 143, Potassium Level 4.3, Chloride Level 107, Carbon Dioxide Level 33H, Anion Gap 3L, Blood Urea Nitrogen 14, Creatinine 0.8, Estimat Glomerular Filtration Rate , Glucose Level 156H, Calcium Level 8.4L , Phosphorus Level 3.5, Magnesium Level 1.9, Iron Level 13L, Total Iron Binding Capacity 154L, Percent Iron Saturation 8L, Unsaturated Iron Binding 141, Total Bilirubin 0.2, Direct Bilirubin 0.1, Aspartate Amino Transf (AST/SGOT) 12L, Alanine Aminotransferase (ALT/SGPT) 9L, Alkaline Phosphatase 75, Total Protein 5.5L, Albumin 1.4L Height (Feet): 6 Weight (Pounds): 187 General Appearance: no apparent distress EENT: normal ENT inspection Neck: normal alignment Cardiovascular: normal peripheral pulses Abdomen: normal bowel sounds Extremities: non-tender Jose Luis Rendon Jul 12, 2017 15:07
--- NOTE | 2017-07-12 15:44 | Nephrology Progress Note ---
Assessment/Plan Problem List: (1) Respiratory distress (2) Suprapubic catheter (3) Septic shock (4) Electrolyte abnormality Assessment HypoKalemia- Respiratory Failure on Vent Septic shock / Pneumonia / UTI Oliguria due to low BP Prostate cancer with suprapubic catheter. Severe Alzheimer dementia. Severe protein-calorie malnutrition. Anemia. Hyperglycemia. Plan Plan: FLuid challenge- Cortisol level wnl Antibiotics pulmonary support K supplements Per order Subjective ROS Limited/Unobtainable: Yes Objective Objective Last 24 Hour Vital Signs Date Time Temp Pulse Resp B/P (MAP) Pulse Ox O2 Delivery O2 Flow Rate FiO2 07/12/17 15:08 80 19 35 07/12/17 15:00 83 19 131/78 100 Mechanical Ventilator 35 07/12/17 14:00 84 16 122/95 100 Mechanical Ventilator 35 07/12/17 13:20 81 18 35 07/12/17 13:00 82 15 122/95 100 Mechanical Ventilator 35 07/12/17 12:00 96 07/12/17 12:00 35 07/12/17 12:00 98.7 85 15 124/63 100 Mechanical Ventilator 35 07/12/17 11:10 95 22 35 07/12/17 11:00 85 15 124/63 100 Mechanical Ventilator 35 07/12/17 10:00 86 14 113/53 100 Mechanical Ventilator 35 07/12/17 09:11 93 14 35 07/12/17 09:00 106 20 116/64 100 Mechanical Ventilator 35 07/12/17 08:45 100 07/12/17 08:00 112 07/12/17 08:00 35 07/12/17 08:00 82 07/12/17 08:00 98.8 85 14 122/62 100 Mechanical Ventilator 35 07/12/17 07:05 84 15 35 07/12/17 07:00 85 16 126/62 100 Mechanical Ventilator 35 07/12/17 06:00 86 16 117/54 100 Mechanical Ventilator 35 07/12/17 05:30 98 24 35 07/12/17 05:00 86 20 109/74 100 Mechanical Ventilator 35 07/12/17 04:00 99.0 79 17 116/53 99 Mechanical Ventilator 35 07/12/17 04:00 35 07/12/17 03:31 75 07/12/17 03:30 83 15 35 07/12/17 03:00 74 14 103/47 99 Mechanical Ventilator 35 07/12/17 02:00 74 14 91/54 100 Mechanical Ventilator 35 07/12/17 01:30 79 16 35 07/12/17 01:00 83 16 90/45 99 Mechanical Ventilator 35 07/12/17 00:00 98.7 85 17 125/60 100 Mechanical Ventilator 35 07/11/17 23:30 78 15 35 07/11/17 23:00 80 17 104/53 99 Mechanical Ventilator 35 07/11/17 22:59 80 07/11/17 22:00 75 16 90/45 99 Mechanical Ventilator 35 07/11/17 21:31 109/74 07/11/17 21:30 88 20 35 07/11/17 21:00 77 15 107/50 99 Mechanical Ventilator 35 07/11/17 20:00 35 07/11/17 20:00 98.6 82 16 94/42 99 Mechanical Ventilator 35 07/11/17 19:30 75 17 35 07/11/17 19:07 86 07/11/17 19:00 82 20 103/51 99 Mechanical Ventilator 35 07/11/17 18:00 88 20 122/56 99 Mechanical Ventilator 35 07/11/17 17:10 96 25 35 07/11/17 17:00 88 30 102/49 100 Mechanical Ventilator 35 07/11/17 16:00 98.7 91 24 130/66 100 Mechanical Ventilator 35 07/11/17 16:00 35 07/11/17 16:00 90 Intake and Output 07/12/17 07/13/17 19:00 07:00 Intake Total 481.25 ml Output Total 790 ml Balance -308.75 ml IV Total 41.25 ml Tube Feeding 440 ml Output Urine Total 790 ml Laboratory Tests 07/12/17 10:00: White Blood Count 6.3, Red Blood Count 3.07L, Hemoglobin 9.0L, Hematocrit 28.2L , Mean Corpuscular Volume 92, Mean Corpuscular Hemoglobin 29.4, Mean Corpuscular Hemoglobin Concent 32.0, Red Cell Distribution Width 13.1, Platelet Count 431, Mean Platelet Volume 7.5, Neutrophils (%) (Auto) 69.7, Lymphocytes (% ) (Auto) 13.1L, Monocytes (%) (Auto) 9.2, Eosinophils (%) (Auto) 6.9H, Basophils (%) (Auto) 1.1, Sodium Level 143, Potassium Level 4.3, Chloride Level 107, Carbon Dioxide Level 33H, Anion Gap 3L, Blood Urea Nitrogen 14, Creatinine 0.8, Estimat Glomerular Filtration Rate , Glucose Level 156H, Calcium Level 8.4L , Phosphorus Level 3.5, Magnesium Level 1.9, Iron Level 13L, Total Iron Binding Capacity 154L, Percent Iron Saturation 8L, Unsaturated Iron Binding 141, Total Bilirubin 0.2, Direct Bilirubin 0.1, Aspartate Amino Transf (AST/SGOT) 12L, Alanine Aminotransferase (ALT/SGPT) 9L, Alkaline Phosphatase 75, Total Protein 5.5L, Albumin 1.4L Height (Feet): 6 Weight (Pounds): 187 Objective no other change FAITH SEARS Jul 12, 2017 15:44
--- NOTE | 2017-07-12 16:19 | Pulmonology Progress Note ---
Assessment/Plan Assessment/Plan 1. Respiratory failure. 2. Sepsis with shock. 3. Pneumonia. 4. Anuria, resolved 5. Prostate cancer with suprapubic catheter. 6. Severe Alzheimer dementia. 7. Severe protein-calorie malnutrition. 8. Anemia. 9. Possible acute myocardial infarction. 10. Azotemia. 11. Hyperglycemia. not tolerating weaning he will need a tracheostomy I called Dr. Anderson vent support, not weanable yet, high spont RR, good TV adjust abx per ID prognosis guarded Subjective ROS Limited/Unobtainable: Yes Allergies: Coded Allergies: No Known Allergies (Verified , 09/26/12) Objective Last 24 Hour Vital Signs Date Time Temp Pulse Resp B/P (MAP) Pulse Ox O2 Delivery O2 Flow Rate FiO2 07/12/17 15:08 80 19 35 07/12/17 15:00 83 19 131/78 100 Mechanical Ventilator 35 07/12/17 14:00 84 16 122/95 100 Mechanical Ventilator 35 07/12/17 13:20 81 18 35 07/12/17 13:00 82 15 122/95 100 Mechanical Ventilator 35 07/12/17 12:00 96 07/12/17 12:00 35 07/12/17 12:00 98.7 85 15 124/63 100 Mechanical Ventilator 35 07/12/17 11:10 95 22 35 07/12/17 11:00 85 15 124/63 100 Mechanical Ventilator 35 07/12/17 10:00 86 14 113/53 100 Mechanical Ventilator 35 07/12/17 09:11 93 14 35 07/12/17 09:00 106 20 116/64 100 Mechanical Ventilator 35 07/12/17 08:45 100 07/12/17 08:00 112 07/12/17 08:00 35 07/12/17 08:00 82 07/12/17 08:00 98.8 85 14 122/62 100 Mechanical Ventilator 35 07/12/17 07:05 84 15 35 07/12/17 07:00 85 16 126/62 100 Mechanical Ventilator 35 07/12/17 06:00 86 16 117/54 100 Mechanical Ventilator 35 07/12/17 05:30 98 24 35 07/12/17 05:00 86 20 109/74 100 Mechanical Ventilator 35 07/12/17 04:00 99.0 79 17 116/53 99 Mechanical Ventilator 35 07/12/17 04:00 35 07/12/17 03:31 75 07/12/17 03:30 83 15 35 07/12/17 03:00 74 14 103/47 99 Mechanical Ventilator 35 07/12/17 02:00 74 14 91/54 100 Mechanical Ventilator 35 07/12/17 01:30 79 16 35 07/12/17 01:00 83 16 90/45 99 Mechanical Ventilator 35 07/12/17 00:00 98.7 85 17 125/60 100 Mechanical Ventilator 35 07/11/17 23:30 78 15 35 07/11/17 23:00 80 17 104/53 99 Mechanical Ventilator 35 07/11/17 22:59 80 07/11/17 22:00 75 16 90/45 99 Mechanical Ventilator 35 07/11/17 21:31 109/74 07/11/17 21:30 88 20 35 07/11/17 21:00 77 15 107/50 99 Mechanical Ventilator 35 07/11/17 20:00 35 07/11/17 20:00 98.6 82 16 94/42 99 Mechanical Ventilator 35 07/11/17 19:30 75 17 35 07/11/17 19:07 86 07/11/17 19:00 82 20 103/51 99 Mechanical Ventilator 35 07/11/17 18:00 88 20 122/56 99 Mechanical Ventilator 35 07/11/17 17:10 96 25 35 07/11/17 17:00 88 30 102/49 100 Mechanical Ventilator 35 Intake and Output 07/12/17 07/13/17 19:00 07:00 Intake Total 481.25 ml Output Total 790 ml Balance -308.75 ml IV Total 41.25 ml Tube Feeding 440 ml Output Urine Total 790 ml Objective G tube, suprapubic cath General Appearance: no acute distress, cachetic Respiratory/Chest: rhonchi Cardiovascular: normal rate Abdomen: soft, non tender Laboratory Tests 07/12/17 10:00: White Blood Count 6.3, Red Blood Count 3.07L, Hemoglobin 9.0L, Hematocrit 28.2L , Mean Corpuscular Volume 92, Mean Corpuscular Hemoglobin 29.4, Mean Corpuscular Hemoglobin Concent 32.0, Red Cell Distribution Width 13.1, Platelet Count 431, Mean Platelet Volume 7.5, Neutrophils (%) (Auto) 69.7, Lymphocytes (% ) (Auto) 13.1L, Monocytes (%) (Auto) 9.2, Eosinophils (%) (Auto) 6.9H, Basophils (%) (Auto) 1.1, Sodium Level 143, Potassium Level 4.3, Chloride Level 107, Carbon Dioxide Level 33H, Anion Gap 3L, Blood Urea Nitrogen 14, Creatinine 0.8, Estimat Glomerular Filtration Rate , Glucose Level 156H, Calcium Level 8.4L , Phosphorus Level 3.5, Magnesium Level 1.9, Iron Level 13L, Total Iron Binding Capacity 154L, Percent Iron Saturation 8L, Unsaturated Iron Binding 141, Total Bilirubin 0.2, Direct Bilirubin 0.1, Aspartate Amino Transf (AST/SGOT) 12L, Alanine Aminotransferase (ALT/SGPT) 9L, Alkaline Phosphatase 75, Total Protein 5.5L, Albumin 1.4L Current Medications Medications (Trade) Dose Ordered Sig/Matt Route PRN Reason Start Time Stop Time Status Last Admin Dose Admin Acetaminophen (Tylenol) 650 mg Q4H PRN GT Mild Pain (1-3) 07/02/17 19:00 08/01/17 18:59 07/05/17 09:12 Aspirin (ASA) 81 mg DAILY GT 07/03/17 09:00 08/02/17 08:59 07/12/17 09:16 Chlorhexidine Gluconate (Mari-Hex 2%) 1 applic DAILY@1999 TOPIC 07/03/17 20:00 08/02/17 19:59 07/11/17 19:42 Dextrose (Dextrose 50%) STAT PRN IV Hypoglycemia 07/02/17 19:00 08/01/17 18:59 07/11/17 23:43 Enoxaparin Sodium (Lovenox) 80 mg Q12HR SUBQ 07/09/17 21:00 08/08/17 20:59 07/12/17 09:18 Famotidine (Pepcid I.v.) 20 mg Q12HR IVP 07/05/17 23:00 08/04/17 22:59 07/12/17 09:16 Insulin Aspart (NovoLOG) Q6HR SUBQ 07/04/17 00:00 08/01/17 20:59 07/12/17 12:58 Insulin Detemir (Levemir) 10 units BID SUBQ 07/10/17 09:00 08/09/17 08:59 07/12/17 09:19 Midodrine (Pro-Amatine) 10 mg THREE TIMES A DAY GT 07/11/17 13:00 08/10/17 12:59 07/12/17 12:56 Norepinephrine Bitartrate 4 mg/ Dextrose 250 ml @ 0 mls/hr Q24H IV 07/02/17 21:31 08/01/17 21:30 07/05/17 10:12 Ondansetron HCl (Zofran) 4 mg Q6H PRN GT Nausea & Vomiting 07/02/17 19:00 08/01/17 18:59 Pantoprazole (Protonix) 40 mg DAILY IV 07/03/17 09:00 08/02/17 08:59 07/12/17 09:16 Vitamin A/Vitamin D (A & D Oint) 1 applic EVERY 12 HOURS TOPIC 07/04/17 21:00 08/03/17 20:59 07/12/17 09:19 SABAS KNOTT Jul 12, 2017 16:19
--- NOTE | 2017-07-12 19:15 | General Progress Note ---
Assessment/Plan Problem List: (1) Diabetes mellitus ICD Codes: E11.9 - Type 2 diabetes mellitus without complications SNOMED: 78623018 (2) ATN (acute tubular necrosis) ICD Codes: N17.0 - Acute kidney failure with tubular necrosis SNOMED: 76640309 (3) G tube feedings ICD Codes: Z93.1 - Gastrostomy status SNOMED: 698570823, 732643517 (4) Dementia ICD Codes: F03.90 - Unspecified dementia without behavioral disturbance SNOMED: 04196253 (5) Respiratory distress ICD Codes: R06.03 - Acute respiratory distress SNOMED: 698236902 (6) Suprapubic catheter ICD Codes: Z93.59 - Other cystostomy status SNOMED: 446296599, 808892995 Assessment/Plan continue Levemir 10 units bid continue Novolog sliding scale Subjective ROS Limited/Unobtainable: Yes Allergies: Coded Allergies: No Known Allergies (Verified , 09/26/12) Subjective events noted interval notes reviewed Objective Last 24 Hour Vital Signs Date Time Temp Pulse Resp B/P (MAP) Pulse Ox O2 Delivery O2 Flow Rate FiO2 07/12/17 19:00 74 16 132/41 97 Mechanical Ventilator 35 07/12/17 18:00 89 20 132/41 99 Mechanical Ventilator 35 07/12/17 17:25 86 19 35 07/12/17 17:00 80 15 137/80 100 Mechanical Ventilator 35 07/12/17 16:00 98.7 62 12 134/100 100 Mechanical Ventilator 35 07/12/17 16:00 80 07/12/17 16:00 35 07/12/17 15:08 80 19 35 07/12/17 15:00 83 19 131/78 100 Mechanical Ventilator 35 07/12/17 14:00 84 16 122/95 100 Mechanical Ventilator 35 07/12/17 13:20 81 18 35 07/12/17 13:00 82 15 122/95 100 Mechanical Ventilator 35 07/12/17 12:00 96 07/12/17 12:00 35 07/12/17 12:00 98.7 85 15 124/63 100 Mechanical Ventilator 35 07/12/17 11:10 95 22 35 07/12/17 11:00 85 15 124/63 100 Mechanical Ventilator 35 07/12/17 10:00 86 14 113/53 100 Mechanical Ventilator 35 07/12/17 09:11 93 14 35 07/12/17 09:00 106 20 116/64 100 Mechanical Ventilator 35 07/12/17 08:45 100 07/12/17 08:00 112 07/12/17 08:00 35 07/12/17 08:00 82 07/12/17 08:00 98.8 85 14 122/62 100 Mechanical Ventilator 35 07/12/17 07:05 84 15 35 07/12/17 07:00 85 16 126/62 100 Mechanical Ventilator 35 07/12/17 06:00 86 16 117/54 100 Mechanical Ventilator 35 07/12/17 05:30 98 24 35 07/12/17 05:00 86 20 109/74 100 Mechanical Ventilator 35 07/12/17 04:00 99.0 79 17 116/53 99 Mechanical Ventilator 35 07/12/17 04:00 35 07/12/17 03:31 75 07/12/17 03:30 83 15 35 07/12/17 03:00 74 14 103/47 99 Mechanical Ventilator 35 07/12/17 02:00 74 14 91/54 100 Mechanical Ventilator 35 07/12/17 01:30 79 16 35 07/12/17 01:00 83 16 90/45 99 Mechanical Ventilator 35 07/12/17 00:00 98.7 85 17 125/60 100 Mechanical Ventilator 35 07/11/17 23:30 78 15 35 07/11/17 23:00 80 17 104/53 99 Mechanical Ventilator 35 07/11/17 22:59 80 07/11/17 22:00 75 16 90/45 99 Mechanical Ventilator 35 07/11/17 21:31 109/74 07/11/17 21:30 88 20 35 07/11/17 21:00 77 15 107/50 99 Mechanical Ventilator 35 07/11/17 20:00 35 07/11/17 20:00 98.6 82 16 94/42 99 Mechanical Ventilator 35 07/11/17 19:30 75 17 35 Intake and Output 07/12/17 07/13/17 19:00 07:00 Intake Total 701.25 ml Output Total 1440 ml Balance -738.75 ml IV Total 41.25 ml Tube Feeding 660 ml Output Urine Total 1440 ml Laboratory Tests 07/12/17 10:00: White Blood Count 6.3, Red Blood Count 3.07L, Hemoglobin 9.0L, Hematocrit 28.2L , Mean Corpuscular Volume 92, Mean Corpuscular Hemoglobin 29.4, Mean Corpuscular Hemoglobin Concent 32.0, Red Cell Distribution Width 13.1, Platelet Count 431, Mean Platelet Volume 7.5, Neutrophils (%) (Auto) 69.7, Lymphocytes (% ) (Auto) 13.1L, Monocytes (%) (Auto) 9.2, Eosinophils (%) (Auto) 6.9H, Basophils (%) (Auto) 1.1, Sodium Level 143, Potassium Level 4.3, Chloride Level 107, Carbon Dioxide Level 33H, Anion Gap 3L, Blood Urea Nitrogen 14, Creatinine 0.8, Estimat Glomerular Filtration Rate , Glucose Level 156H, Calcium Level 8.4L , Phosphorus Level 3.5, Magnesium Level 1.9, Iron Level 13L, Total Iron Binding Capacity 154L, Percent Iron Saturation 8L, Unsaturated Iron Binding 141, Total Bilirubin 0.2, Direct Bilirubin 0.1, Aspartate Amino Transf (AST/SGOT) 12L, Alanine Aminotransferase (ALT/SGPT) 9L, Alkaline Phosphatase 75, Total Protein 5.5L, Albumin 1.4L Height (Feet): 6 Weight (Pounds): 187 General Appearance: moderate distress Neck: normal alignment Cardiovascular: normal rate Respiratory/Chest: decreased breath sounds Abdomen: normal bowel sounds Edema: 1+ Arm (L), 1+ Arm (R), 1+ Leg (L), 1+ Leg (R), 1+ Pedal (L), 1+ Pedal ( R), 1+ Generalized Objective Current Medications Medications (Trade) Dose Ordered Sig/Matt Route PRN Reason Start Time Stop Time Status Last Admin Dose Admin Acetaminophen (Tylenol) 650 mg Q4H PRN GT Mild Pain (1-3) 07/02/17 19:00 08/01/17 18:59 07/05/17 09:12 Aspirin (ASA) 81 mg DAILY GT 07/03/17 09:00 08/02/17 08:59 07/12/17 09:16 Chlorhexidine Gluconate (Mari-Hex 2%) 1 applic DAILY@2000 TOPIC 07/03/17 20:00 08/02/17 19:59 07/11/17 19:42 Dextrose (Dextrose 50%) STAT PRN IV Hypoglycemia 07/02/17 19:00 08/01/17 18:59 07/11/17 23:43 Enoxaparin Sodium (Lovenox) 80 mg Q12HR SUBQ 07/09/17 21:00 08/08/17 20:59 07/12/17 09:18 Famotidine (Pepcid I.v.) 20 mg Q12HR IVP 07/05/17 23:00 08/04/17 22:59 07/12/17 09:16 Insulin Aspart (NovoLOG) Q6HR SUBQ 07/04/17 00:00 08/01/17 20:59 07/12/17 17:08 Insulin Detemir (Levemir) 10 units BID SUBQ 07/10/17 09:00 08/09/17 08:59 07/12/17 17:08 Midodrine (Pro-Amatine) 10 mg THREE TIMES A DAY GT 07/11/17 13:00 08/10/17 12:59 07/12/17 17:07 Norepinephrine Bitartrate 4 mg/ Dextrose 250 ml @ 0 mls/hr Q24H IV 07/02/17 21:31 08/01/17 21:30 07/05/17 10:12 Ondansetron HCl (Zofran) 4 mg Q6H PRN GT Nausea & Vomiting 07/02/17 19:00 08/01/17 18:59 Pantoprazole (Protonix) 40 mg DAILY IV 07/03/17 09:00 08/02/17 08:59 07/12/17 09:16 Vitamin A/Vitamin D (A & D Oint) 1 applic EVERY 12 HOURS TOPIC 07/04/17 21:00 08/03/17 20:59 07/12/17 09:19 Item Value Date Time Bedside Blood Glucose 147 mg/dl H 07/12/17 1800 Bedside Blood Glucose 181 mg/dl H 07/12/17 1258 Bedside Blood Glucose 149 mg/dl H 07/12/17 0919 Bedside Blood Glucose 89 mg/dl 07/12/17 0538 Bedside Blood Glucose 110 mg/dl 07/12/17 0007 Bedside Blood Glucose 126 mg/dl H 07/11/17 1800 MARIA EUGENIA AUGUST 18, 2017 19:15
--- NOTE | 2017-07-12 19:45 | Cardiology Progress Note ---
Assessment/Plan Assessment/Plan 1. Septic shock resolved, due to underlying pneumonia. 2. Sinus tachycardia,resolved, likely due to hypoxemia/sepsis/hypovolemia. 3. History of hypertension. All the blood pressure medication on hold. 4. History of cerebrovascular accident. 5. Respiratory failure, ?ARDS, Trach evaluation made. Subjective Subjective Sinus rhythm at 89. Remains intubated. Objective Last 24 Hour Vital Signs Date Time Temp Pulse Resp B/P (MAP) Pulse Ox O2 Delivery O2 Flow Rate FiO2 07/12/17 19:00 74 16 132/41 97 Mechanical Ventilator 35 07/12/17 18:00 89 20 132/41 99 Mechanical Ventilator 35 07/12/17 17:25 86 19 35 07/12/17 17:00 80 15 137/80 100 Mechanical Ventilator 35 07/12/17 16:00 98.7 62 12 134/100 100 Mechanical Ventilator 35 07/12/17 16:00 80 07/12/17 16:00 35 07/12/17 15:08 80 19 35 07/12/17 15:00 83 19 131/78 100 Mechanical Ventilator 35 07/12/17 14:00 84 16 122/95 100 Mechanical Ventilator 35 07/12/17 13:20 81 18 35 07/12/17 13:00 82 15 122/95 100 Mechanical Ventilator 35 07/12/17 12:00 96 07/12/17 12:00 35 07/12/17 12:00 98.7 85 15 124/63 100 Mechanical Ventilator 35 07/12/17 11:10 95 22 35 07/12/17 11:00 85 15 124/63 100 Mechanical Ventilator 35 07/12/17 10:00 86 14 113/53 100 Mechanical Ventilator 35 07/12/17 09:11 93 14 35 07/12/17 09:00 106 20 116/64 100 Mechanical Ventilator 35 07/12/17 08:45 100 07/12/17 08:00 112 07/12/17 08:00 35 07/12/17 08:00 82 07/12/17 08:00 98.8 85 14 122/62 100 Mechanical Ventilator 35 07/12/17 07:05 84 15 35 07/12/17 07:00 85 16 126/62 100 Mechanical Ventilator 35 07/12/17 06:00 86 16 117/54 100 Mechanical Ventilator 35 07/12/17 05:30 98 24 35 07/12/17 05:00 86 20 109/74 100 Mechanical Ventilator 35 07/12/17 04:00 99.0 79 17 116/53 99 Mechanical Ventilator 35 07/12/17 04:00 35 07/12/17 03:31 75 07/12/17 03:30 83 15 35 07/12/17 03:00 74 14 103/47 99 Mechanical Ventilator 35 07/12/17 02:00 74 14 91/54 100 Mechanical Ventilator 35 07/12/17 01:30 79 16 35 07/12/17 01:00 83 16 90/45 99 Mechanical Ventilator 35 07/12/17 00:00 98.7 85 17 125/60 100 Mechanical Ventilator 35 07/11/17 23:30 78 15 35 07/11/17 23:00 80 17 104/53 99 Mechanical Ventilator 35 07/11/17 22:59 80 07/11/17 22:00 75 16 90/45 99 Mechanical Ventilator 35 07/11/17 21:31 109/74 07/11/17 21:30 88 20 35 07/11/17 21:00 77 15 107/50 99 Mechanical Ventilator 35 07/11/17 20:00 35 07/11/17 20:00 98.6 82 16 94/42 99 Mechanical Ventilator 35 Intake and Output 07/12/17 07/13/17 19:00 07:00 Intake Total 701.25 ml Output Total 1440 ml Balance -738.75 ml IV Total 41.25 ml Tube Feeding 660 ml Output Urine Total 1440 ml Laboratory Tests Test 07/12/17 10:00 White Blood Count 6.3 K/UL (4.8-10.8) Red Blood Count 3.07 M/UL (4.70-6.10) L Hemoglobin 9.0 G/DL (14.2-18.0) L Hematocrit 28.2 % (42.0-52.0) L Mean Corpuscular Volume 92 FL (80-99) Mean Corpuscular Hemoglobin 29.4 PG (27.0-31.0) Mean Corpuscular Hemoglobin Concent 32.0 G/DL (32.0-36.0) Red Cell Distribution Width 13.1 % (11.6-14.8) Platelet Count 431 K/UL (150-450) Mean Platelet Volume 7.5 FL (6.5-10.1) Neutrophils (%) (Auto) 69.7 % (45.0-75.0) Lymphocytes (%) (Auto) 13.1 % (20.0-45.0) L Monocytes (%) (Auto) 9.2 % (1.0-10.0) Eosinophils (%) (Auto) 6.9 % (0.0-3.0) H Basophils (%) (Auto) 1.1 % (0.0-2.0) Sodium Level 143 MMOL/L (136-145) Potassium Level 4.3 MMOL/L (3.5-5.1) Chloride Level 107 MMOL/L (98-107) Carbon Dioxide Level 33 MMOL/L (21-32) H Anion Gap 3 mmol/L (5-15) L Blood Urea Nitrogen 14 mg/dL (7-18) Creatinine 0.8 MG/DL (0.55-1.30) Estimat Glomerular Filtration Rate mL/min (>60) Glucose Level 156 MG/DL (74-106) H Calcium Level 8.4 MG/DL (8.5-10.1) L Phosphorus Level 3.5 MG/DL (2.5-4.9) Magnesium Level 1.9 MG/DL (1.8-2.4) Iron Level 13 ug/dL (50-175) L Total Iron Binding Capacity 154 ug/dL (250-450) L Percent Iron Saturation 8 % (15-50) L Unsaturated Iron Binding 141 ug/dL (112-346) Total Bilirubin 0.2 MG/DL (0.2-1.0) Direct Bilirubin 0.1 MG/DL (0.0-0.3) Aspartate Amino Transf (AST/SGOT) 12 U/L (15-37) L Alanine Aminotransferase (ALT/SGPT) 9 U/L (12-78) L Alkaline Phosphatase 75 U/L (46-116) Total Protein 5.5 G/DL (6.4-8.2) L Albumin 1.4 G/DL (3.4-5.0) L Objective GENERAL: The patient is a chronically ill appearing, 76-year-old gentleman, intubated. HEENT: Atraumatic and normocephalic. ENT, pupils are equal, round, and reactive to light and accommodation. Bitemporal wasting. NECK: JVP cannot be assessed due to positive inspiratory pressure. CVS: Normal S1 and S2. Tachycardic. I do not appreciate any murmur, gallop, or rub at this time. LUNGS: Bilateral rhonchi, right greater than left. ABDOMEN: Soft, nontender, and nondistended. Presence of a G-tube. Positive bowel sounds. EXTREMITIES: There is no evidence of edema, clubbing, or cyanosis. FRANCISCO SPAIN Jul 12, 2017 19:45
[2017-07-12] MEDS: Dyna-Hex 2% Top Sol 2oz TOPIC SCH (20:51)
--- NOTE | 2017-07-12 21:22 | General Progress Note ---
Assessment/Plan Problem List: (1) COPD (chronic obstructive pulmonary disease) ICD Codes: J44.9 - Chronic obstructive pulmonary disease SNOMED: 80006516 (2) Suprapubic catheter ICD Codes: Z93.59 - Other cystostomy status SNOMED: 601520599, 443072977 (3) Catheter-associated urinary tract infection ICD Codes: T83.511A - Infection and inflammatory reaction due to indwelling urethral catheter, initial encounter; N39.0 - Urinary tract infection, site not specified SNOMED: 952521541 (4) Anemia ICD Codes: D64.9 - Anemia, unspecified SNOMED: 952859411 (5) Dementia ICD Codes: F03.90 - Unspecified dementia without behavioral disturbance SNOMED: 04093905 (6) Seizure ICD Codes: R56.9 - Unspecified convulsions SNOMED: 03593599 (7) Prostate cancer ICD Codes: C61 - Malignant neoplasm of prostate SNOMED: 170584805 (8) COPD (chronic obstructive pulmonary disease) ICD Codes: J44.9 - Chronic obstructive pulmonary disease, unspecified SNOMED: 78379317 (9) Respiratory distress ICD Codes: R06.03 - Acute respiratory distress SNOMED: 627122332 (10) Sepsis ICD Codes: A41.9 - Sepsis, unspecified organism SNOMED: 47196799 Status: progressing Assessment/Plan resp failure afebrile poor prognosis failure to wean trach per pulmonary asp pna dehyration sepsis lethargic Subjective ROS Limited/Unobtainable: Yes Allergies: Coded Allergies: No Known Allergies (Verified , 09/26/12) Objective Last 24 Hour Vital Signs Date Time Temp Pulse Resp B/P (MAP) Pulse Ox O2 Delivery O2 Flow Rate FiO2 07/12/17 21:03 88 19 35 07/12/17 19:00 74 16 132/41 97 Mechanical Ventilator 35 07/12/17 18:00 89 20 132/41 99 Mechanical Ventilator 35 07/12/17 17:25 86 19 35 07/12/17 17:00 80 15 137/80 100 Mechanical Ventilator 35 07/12/17 16:00 98.7 62 12 134/100 100 Mechanical Ventilator 35 07/12/17 16:00 80 07/12/17 16:00 35 07/12/17 15:08 80 19 35 07/12/17 15:00 83 19 131/78 100 Mechanical Ventilator 35 07/12/17 14:00 84 16 122/95 100 Mechanical Ventilator 35 07/12/17 13:20 81 18 35 07/12/17 13:00 82 15 122/95 100 Mechanical Ventilator 35 07/12/ 12:00 96 07/12/ 12:00 35 07/12/ 12:00 98.7 85 15 124/63 100 Mechanical Ventilator 35 07/12/17 11:10 95 22 35 07/12/17 11:00 85 15 124/63 100 Mechanical Ventilator 35 07/12/17 10:00 86 14 113/53 100 Mechanical Ventilator 35 07/12/17 09:11 93 14 35 07/12/17 09:00 106 20 116/64 100 Mechanical Ventilator 35 07/12/17 08:45 100 07/12/17 08:00 112 07/12/17 08:00 35 07/12/17 08:00 82 07/12/17 08:00 98.8 85 14 122/62 100 Mechanical Ventilator 35 07/12/17 07:05 84 15 35 07/12/17 07:00 85 16 126/62 100 Mechanical Ventilator 35 07/12/17 06:00 86 16 117/54 100 Mechanical Ventilator 35 07/12/17 05:30 98 24 35 07/12/17 05:00 86 20 109/74 100 Mechanical Ventilator 35 07/12/17 04:00 99.0 79 17 116/53 99 Mechanical Ventilator 35 07/12/17 04:00 35 07/12/17 03:31 75 07/12/17 03:30 83 15 35 07/12/17 03:00 74 14 103/47 99 Mechanical Ventilator 35 07/12/17 02:00 74 14 91/54 100 Mechanical Ventilator 35 07/12/17 01:30 79 16 35 07/12/17 01:00 83 16 90/45 99 Mechanical Ventilator 35 07/12/17 00:00 98.7 85 17 125/60 100 Mechanical Ventilator 35 07/11/17 23:30 78 15 35 07/11/ 23:00 80 17 104/53 99 Mechanical Ventilator 35 07/11/ 22:59 80 07/11/17 22:00 75 16 90/45 99 Mechanical Ventilator 35 07/11/17 21:31 109/74 07/11/17 21:30 88 20 35 Intake and Output 07/12/17 07/13/17 19:00 07:00 Intake Total 701.25 ml Output Total 1440 ml Balance -738.75 ml IV Total 41.25 ml Tube Feeding 660 ml Output Urine Total 1440 ml Laboratory Tests 07/12/17 10:00: White Blood Count 6.3, Red Blood Count 3.07L, Hemoglobin 9.0L, Hematocrit 28.2L , Mean Corpuscular Volume 92, Mean Corpuscular Hemoglobin 29.4, Mean Corpuscular Hemoglobin Concent 32.0, Red Cell Distribution Width 13.1, Platelet Count 431, Mean Platelet Volume 7.5, Neutrophils (%) (Auto) 69.7, Lymphocytes (% ) (Auto) 13.1L, Monocytes (%) (Auto) 9.2, Eosinophils (%) (Auto) 6.9H, Basophils (%) (Auto) 1.1, Sodium Level 143, Potassium Level 4.3, Chloride Level 107, Carbon Dioxide Level 33H, Anion Gap 3L, Blood Urea Nitrogen 14, Creatinine 0.8, Estimat Glomerular Filtration Rate , Glucose Level 156H, Calcium Level 8.4L , Phosphorus Level 3.5, Magnesium Level 1.9, Iron Level 13L, Total Iron Binding Capacity 154L, Percent Iron Saturation 8L, Unsaturated Iron Binding 141, Total Bilirubin 0.2, Direct Bilirubin 0.1, Aspartate Amino Transf (AST/SGOT) 12L, Alanine Aminotransferase (ALT/SGPT) 9L, Alkaline Phosphatase 75, Total Protein 5.5L, Albumin 1.4L Height (Feet): 6 Weight (Pounds): 187 General Appearance: lethargic, confused Respiratory/Chest: rhonchi - bilaterally Sary Oakes MD Jul 12, 2017 21:22
[2017-07-13] VITALS (24 sets, daily range): BP systolic 92–132; BP diastolic 46–74
[2017-07-13] MEDS: NovoLOG Insulin Flexpen SUBQ SCH ×3 (06:00→17:56)
[2017-07-13] MEDS: Pantoprazole Inj IV SCH (08:41)
[2017-07-13] MEDS: Midodrine 10mg tab GT SCH ×3 (08:41→17:53)
[2017-07-13] MEDS: Aspirin Baby 81mg GT SCH (08:41)
[2017-07-13] MEDS: Vitamin A&D Oint 2oz Tube TOPIC SCH ×2 (08:42→20:45)
[2017-07-13] MEDS: Enoxaparin 80mg Inj SUBQ SCH ×2 (08:47→20:44)
[2017-07-13] MEDS: Levemir Flexpen SUBQ SCH ×2 (08:48→17:56)
[2017-07-13 10:20] LABS: PROTHROMBIN TIME 10.5 SEC (9.30-11.50)
--- NOTE | 2017-07-13 10:31 | Infectious Diseases Prog Note ---
Assessment/Plan Assessment/Plan A; Septic Shock resolved Complicated UTI with MRSA & pseudomonas s/p RX Pneumonia treated for 10 days CoANS in blood likely contamination Acute respiratory failure MRSA colonization P; observe off antibiotic Tracheostomy is suggested by leaf fat scraper Subjective ROS Limited/Unobtainable: Yes Neurologic: Reports: confusion, other - on restraint Allergies: Coded Allergies: No Known Allergies (Verified , 09/26/12) Objective Vital Signs Last 24 Hour Vital Signs Date Time Temp Pulse Resp B/P (MAP) Pulse Ox O2 Delivery O2 Flow Rate FiO2 07/13/17 10:00 75 15 120/58 100 Mechanical Ventilator 35 07/13/17 09:34 88 07/13/17 09:10 77 15 35 07/13/17 09:00 82 15 115/66 99 Mechanical Ventilator 35 07/13/17 08:00 98.9 93 15 121/58 99 Mechanical Ventilator 35 07/13/17 08:00 35 07/13/17 07:28 93 26 35 07/13/17 07:00 87 15 110/60 100 Mechanical Ventilator 35 07/13/17 06:00 73 15 125/73 100 Mechanical Ventilator 35 07/13/17 05:25 76 14 35 07/13/17 05:00 77 16 100/46 100 Mechanical Ventilator 35 07/13/17 04:00 98.6 89 15 112/54 99 Mechanical Ventilator 35 07/13/17 04:00 89 07/13/17 04:00 35 07/13/17 03:00 73 15 132/72 98 Mechanical Ventilator 35 07/13/17 02:48 81 15 35 07/13/17 02:00 71 15 93/46 97 Mechanical Ventilator 35 07/13/17 01:35 71 15 35 07/13/17 01:00 86 15 117/60 97 Mechanical Ventilator 35 07/13/17 00:00 75 07/13/17 00:00 35 07/13/17 00:00 98.5 77 15 103/50 97 Mechanical Ventilator 35 07/12/17 23:26 89 18 35 07/12/17 23:00 76 14 104/48 97 Mechanical Ventilator 35 07/12/17 22:00 85 16 142/61 97 Mechanical Ventilator 35 07/12/17 21:31 104/48 07/12/17 21:03 88 19 35 07/12/17 21:00 87 16 132/41 97 Mechanical Ventilator 35 07/12/17 20:00 98.8 75 16 128/77 98 Mechanical Ventilator 35 07/12/17 20:00 75 07/12/17 20:00 35 07/12/17 19:00 74 16 132/41 97 Mechanical Ventilator 35 07/12/17 18:00 89 20 132/41 99 Mechanical Ventilator 35 07/12/17 17:25 86 19 35 07/12/17 17:00 80 15 137/80 100 Mechanical Ventilator 35 07/12/17 16:00 98.7 62 12 134/100 100 Mechanical Ventilator 35 07/12/17 16:00 80 07/12/17 16:00 35 07/12/17 15:08 80 19 35 07/12/17 15:00 83 19 131/78 100 Mechanical Ventilator 35 07/12/17 14:00 84 16 122/95 100 Mechanical Ventilator 35 07/12/17 13:20 81 18 35 07/12/17 13:00 82 15 122/95 100 Mechanical Ventilator 35 07/12/17 12:00 96 07/12/17 12:00 35 07/12/17 12:00 98.7 85 15 124/63 100 Mechanical Ventilator 35 07/12/17 11:10 95 22 35 07/12/17 11:00 85 15 124/63 100 Mechanical Ventilator 35 Height (Feet): 6 Weight (Pounds): 190 HEENT: other - orally intubated Respiratory/Chest: lungs clear, other - on ventilator Cardiovascular: normal rate Abdomen: soft, non tender, other - GT feeding Extremities: other - edema of legs Skin: ulcers Neurologic/Psychiatric: unresponsiveness Laboratory Tests Test 07/13/17 09:45 Prothrombin Time 10.5 SEC (9.30-11.50) Prothromb Time International Ratio 1.0 (0.9-1.1) Current Medications Medications (Trade) Dose Ordered Sig/Matt Route PRN Reason Start Time Stop Time Status Last Admin Dose Admin Acetaminophen (Tylenol) 650 mg Q4H PRN GT Mild Pain (1-3) 07/02/17 19:00 08/01/17 18:59 07/05/17 09:12 Aspirin (ASA) 81 mg DAILY GT 07/03/17 09:00 08/02/17 08:59 07/13/17 08:41 Chlorhexidine Gluconate (Mari-Hex 2%) 1 applic DAILY@1999 TOPIC 12/9/17 20:00 08/02/17 19:59 07/12/17 20:51 Dextrose (Dextrose 50%) STAT PRN IV Hypoglycemia 07/02/17 19:00 08/01/17 18:59 07/11/17 23:43 Enoxaparin Sodium (Lovenox) 80 mg Q12HR SUBQ 07/09/17 21:00 08/08/17 20:59 07/13/17 08:47 Famotidine (Pepcid I.v.) 20 mg Q12HR IVP 07/05/17 23:00 08/04/17 22:59 07/13/17 08:41 Insulin Aspart (NovoLOG) Q6HR SUBQ 07/04/17 00:00 08/01/17 20:59 07/12/17 17:08 Insulin Detemir (Levemir) 10 units BID SUBQ 07/10/17 09:00 08/09/17 08:59 07/13/17 08:48 Midodrine (Pro-Amatine) 10 mg THREE TIMES A DAY GT 07/11/17 13:00 08/10/17 12:59 07/12/17 17:07 Norepinephrine Bitartrate 4 mg/ Dextrose 250 ml @ 0 mls/hr Q24H IV 07/02/17 21:31 08/01/17 21:30 07/05/17 10:12 Ondansetron HCl (Zofran) 4 mg Q6H PRN GT Nausea & Vomiting 07/02/17 19:00 08/01/17 18:59 Pantoprazole (Protonix) 40 mg DAILY IV 07/03/17 09:00 08/02/17 08:59 07/13/17 08:41 Vitamin A/Vitamin D (A & D Oint) 1 applic EVERY 12 HOURS TOPIC 07/04/17 21:00 08/03/17 20:59 07/13/17 08:42 BREANNE CERVANTES Jul 13, 2017 10:31
--- NOTE | 2017-07-13 11:46 | Nephrology Progress Note ---
Assessment/Plan Problem List: (1) Respiratory distress (2) Suprapubic catheter (3) Septic shock (4) Electrolyte abnormality Assessment HypoKalemia- Respiratory Failure on Vent Septic shock / Pneumonia / UTI Oliguria due to low BP Prostate cancer with suprapubic catheter. Severe Alzheimer dementia. Severe protein-calorie malnutrition. Anemia. Hyperglycemia. Plan Plan: FLuid challenge- Cortisol level wnl Antibiotics pulmonary support K supplements Per order Subjective ROS Limited/Unobtainable: Yes Objective Objective Last 24 Hour Vital Signs Date Time Temp Pulse Resp B/P (MAP) Pulse Ox O2 Delivery O2 Flow Rate FiO2 07/13/17 11:26 94 20 35 07/13/17 11:00 64 16 104/51 100 Mechanical Ventilator 35 07/13/17 10:00 75 15 120/58 100 Mechanical Ventilator 35 07/13/17 09:34 88 07/13/17 09:10 77 15 35 07/13/17 09:00 82 15 115/66 99 Mechanical Ventilator 35 07/13/17 08:00 98.9 93 15 121/58 99 Mechanical Ventilator 35 07/13/17 08:00 35 07/13/17 07:28 93 26 35 07/13/17 07:00 87 15 110/60 100 Mechanical Ventilator 35 07/13/17 06:00 73 15 125/73 100 Mechanical Ventilator 35 07/13/17 05:25 76 14 35 07/13/17 05:00 77 16 100/46 100 Mechanical Ventilator 35 07/13/17 04:00 98.6 89 15 112/54 99 Mechanical Ventilator 35 07/13/17 04:00 89 07/13/17 04:00 35 07/13/17 03:00 73 15 132/72 98 Mechanical Ventilator 35 07/13/17 02:48 81 15 35 07/13/17 02:00 71 15 93/46 97 Mechanical Ventilator 35 07/13/17 01:35 71 15 35 07/13/17 01:00 86 15 117/60 97 Mechanical Ventilator 35 07/13/17 00:00 75 07/13/17 00:00 35 07/13/17 00:00 98.5 77 15 103/50 97 Mechanical Ventilator 35 07/12/17 23:26 89 18 35 07/12/17 23:00 76 14 104/48 97 Mechanical Ventilator 35 07/12/17 22:00 85 16 142/61 97 Mechanical Ventilator 35 07/12/17 21:31 104/48 07/12/17 21:03 88 19 35 07/12/17 21:00 87 16 132/41 97 Mechanical Ventilator 35 07/12/17 20:00 98.8 75 16 128/77 98 Mechanical Ventilator 35 07/12/17 20:00 75 07/12/17 20:00 35 07/12/17 19:00 74 16 132/41 97 Mechanical Ventilator 35 07/12/17 18:00 89 20 132/41 99 Mechanical Ventilator 35 07/12/17 17:25 86 19 35 07/12/17 17:00 80 15 137/80 100 Mechanical Ventilator 35 07/12/17 16:00 98.7 62 12 134/100 100 Mechanical Ventilator 35 07/12/17 16:00 80 07/12/17 16:00 35 07/12/17 15:08 80 19 35 07/12/17 15:00 83 19 131/78 100 Mechanical Ventilator 35 07/12/17 14:00 84 16 122/95 100 Mechanical Ventilator 35 07/12/17 13:20 81 18 35 07/12/17 13:00 82 15 122/95 100 Mechanical Ventilator 35 07/12/17 12:00 96 07/12/17 12:00 35 07/12/17 12:00 98.7 85 15 124/63 100 Mechanical Ventilator 35 Intake and Output 07/13/17 07/14/17 19:00 07:00 Intake Total 220 ml Output Total 475 ml Balance -255 ml Tube Feeding 220 ml Output Urine Total 475 ml Laboratory Tests 07/13/17 09:45: Prothrombin Time 10.5, Prothromb Time International Ratio 1.0 Height (Feet): 6 Weight (Pounds): 190 General Appearance: no apparent distress Cardiovascular: normal rate Respiratory/Chest: decreased breath sounds Abdomen: soft Objective no other change FAITH SEARS Jul 13, 2017 11:46
--- NOTE | 2017-07-13 12:55 | Pulmonology Progress Note ---
Assessment/Plan Assessment/Plan 1. Respiratory failure. 2. Sepsis with shock. 3. Pneumonia. 4. Anuria, resolved 5. Prostate cancer with suprapubic catheter. 6. Severe Alzheimer dementia. 7. Severe protein-calorie malnutrition. 8. Anemia. 9. Possible acute myocardial infarction. 10. Azotemia. 11. Hyperglycemia. not tolerating weaning; called Dr Anderson for trach will have Bioethics consult, disc w soc services vent support, not weanable yet, high spont RR, good TV adjust abx per ID prognosis guarded Subjective ROS Limited/Unobtainable: Yes Respiratory: Reports: shortness of breath Allergies: Coded Allergies: No Known Allergies (Verified , 09/26/12) Objective Last 24 Hour Vital Signs Date Time Temp Pulse Resp B/P (MAP) Pulse Ox O2 Delivery O2 Flow Rate FiO2 07/13/17 12:00 35 07/13/17 12:00 98.3 81 16 127/65 100 Mechanical Ventilator 35 07/13/17 11:26 94 20 35 07/13/17 11:00 64 16 104/51 100 Mechanical Ventilator 35 07/13/17 10:00 75 15 120/58 100 Mechanical Ventilator 35 07/13/17 09:34 88 07/13/17 09:10 77 15 35 07/13/17 09:00 82 15 115/66 99 Mechanical Ventilator 35 07/13/17 08:00 98.9 93 15 121/58 99 Mechanical Ventilator 35 07/13/17 08:00 35 07/13/17 07:28 93 26 35 07/13/17 07:00 87 15 110/60 100 Mechanical Ventilator 35 07/13/17 06:00 73 15 125/73 100 Mechanical Ventilator 35 07/13/17 05:25 76 14 35 07/13/17 05:00 77 16 100/46 100 Mechanical Ventilator 35 07/13/17 04:00 98.6 89 15 112/54 99 Mechanical Ventilator 35 07/13/17 04:00 89 07/13/17 04:00 35 07/13/17 03:00 73 15 132/72 98 Mechanical Ventilator 35 07/13/17 02:48 81 15 35 07/13/17 02:00 71 15 93/46 97 Mechanical Ventilator 35 07/13/17 01:35 71 15 35 07/13/17 01:00 86 15 117/60 97 Mechanical Ventilator 35 07/13/17 00:00 75 07/13/17 00:00 35 07/13/17 00:00 98.5 77 15 103/50 97 Mechanical Ventilator 35 07/12/17 23:26 89 18 35 07/12/17 23:00 76 14 104/48 97 Mechanical Ventilator 35 07/12/17 22:00 85 16 142/61 97 Mechanical Ventilator 35 07/12/17 21:31 104/48 07/12/17 21:03 88 19 35 07/12/17 21:00 87 16 132/41 97 Mechanical Ventilator 35 07/12/17 20:00 98.8 75 16 128/77 98 Mechanical Ventilator 35 07/12/17 20:00 75 07/12/17 20:00 35 07/12/17 19:00 74 16 132/41 97 Mechanical Ventilator 35 07/12/17 18:00 89 20 132/41 99 Mechanical Ventilator 35 07/12/17 17:25 86 19 35 07/12/17 17:00 80 15 137/80 100 Mechanical Ventilator 35 07/12/17 16:00 98.7 62 12 134/100 100 Mechanical Ventilator 35 07/12/17 16:00 80 07/12/17 16:00 35 07/12/17 15:08 80 19 35 07/12/17 15:00 83 19 131/78 100 Mechanical Ventilator 35 07/12/17 14:00 84 16 122/95 100 Mechanical Ventilator 35 07/12/17 13:20 81 18 35 07/12/17 13:00 82 15 122/95 100 Mechanical Ventilator 35 Intake and Output 07/13/17 07/14/17 19:00 07:00 Intake Total 275 ml Output Total 575 ml Balance -300 ml Tube Feeding 275 ml Output Urine Total 575 ml Objective G tube, suprapubic cath General Appearance: cachetic HEENT: atraumatic Respiratory/Chest: rhonchi Cardiovascular: normal rate Abdomen: soft, non tender Laboratory Tests 07/13/17 09:45: Prothrombin Time 10.5, Prothromb Time International Ratio 1.0 Current Medications Medications (Trade) Dose Ordered Sig/Matt Route PRN Reason Start Time Stop Time Status Last Admin Dose Admin Acetaminophen (Tylenol) 650 mg Q4H PRN GT Mild Pain (1-3) 07/02/17 19:00 08/01/17 18:59 07/05/17 09:12 Aspirin (ASA) 81 mg DAILY GT 07/03/17 09:00 08/02/17 08:59 07/13/17 08:41 Chlorhexidine Gluconate (Mari-Hex 2%) 1 applic DAILY@2000 TOPIC 07/03/17 20:00 08/02/17 19:59 07/12/17 20:51 Dextrose (Dextrose 50%) STAT PRN IV Hypoglycemia 07/02/17 19:00 08/01/17 18:59 07/11/17 23:43 Enoxaparin Sodium (Lovenox) 80 mg Q12HR SUBQ 07/09/17 21:00 08/08/17 20:59 07/13/17 08:47 Insulin Aspart (NovoLOG) Q6HR SUBQ 07/04/17 00:00 08/01/17 20:59 07/13/17 12:35 Insulin Detemir (Levemir) 10 units BID SUBQ 07/10/17 09:00 08/09/17 08:59 07/13/17 08:48 Iron Sucrose 200 mg/Sodium Chloride 120 ml @ 240 mls/hr ONCE ONCE IV 07/13/17 13:30 07/13/17 13:59 Midodrine (Pro-Amatine) 10 mg THREE TIMES A DAY GT 07/11/17 13:00 08/10/17 12:59 07/12/17 17:07 Norepinephrine Bitartrate 4 mg/ Dextrose 250 ml @ 0 mls/hr Q24H IV 07/02/17 21:31 08/01/17 21:30 07/05/17 10:12 Ondansetron HCl (Zofran) 4 mg Q6H PRN GT Nausea & Vomiting 07/02/17 19:00 08/01/17 18:59 Pantoprazole (Protonix) 40 mg DAILY IV 07/03/17 09:00 08/02/17 08:59 07/13/17 08:41 Vitamin A/Vitamin D (A & D Oint) 1 applic EVERY 12 HOURS TOPIC 07/04/17 21:00 08/03/17 20:59 07/13/17 08:42 SABAS KNOTT Jul 13, 2017 12:55
[2017-07-13] MEDS ORDERED: Iron Sucrose 200 MG in NS 110 ML IV ONE (13:30)
--- NOTE | 2017-07-13 17:15 | Consultation ---
DATE OF CONSULTATION: 07/13/2017 HEAD AND NECK SURGERY/ENT CONSULTATION CONSULTING PHYSICIAN: Giovany Anderson M.D. REQUESTING PHYSICIAN: Matthew Vázquez M.D. INDICATION FOR CONSULTATION: The patient is a 76-year-old male with numerous medical problems, who I have been asked to do a trach. He has failed extubation. His family is not willing to make him DNR. PAST MEDICAL HISTORY: Significant for depression, hypernatremia, dehydration, gastrostomy tube, cachexia, gross hematuria, elevated LFTs, gastrointestinal bleed, vancomycin-resistant enterococcus, chronic obstructive pulmonary disease, anemia, dementia, respiratory distress, seizures, sepsis, prostate cancer, suprapubic catheter with urinary tract infections, diabetes, acute tubular necrosis, dysphagia, and septic shock. MEDICATIONS: Include ProAmatine, Levemir, Lovenox, famotidine, vancomycin, NovoLog, Protonix, piperacillin, Zofran, Tylenol, and dextrose. ALLERGIES: No known drug allergies. PHYSICAL EXAMINATION: GENERAL: The patient is lying in bed, intubated, noncommunicative. Height 182.88 cm, 86.239 kg, and BMI 25.8. NECK: He has got good landmarks for placing a trach. He also has a central line on the right. LABORATORY DATA: Pertinent labs relating to trach indicate that there is no recent INR. So, I will order that today and speak with the nurses. ASSESSMENT: He is a candidate for tracheostomy. PLAN: INR and platelet count is up-to-date, does not need to be redone. I will check with the OR and try to get him scheduled in the next few days. Nursing staff is aware of care and treatments. I have spoken with Dr. Vázquez regarding this patient. Giovany Anderson M.D. : OSCAR JOB#: [id number] CC:
--- NOTE | 2017-07-13 18:59 | General Progress Note ---
Assessment/Plan Assessment/Plan Assessment - OBS - dysphagia / GT - prostate CA - anemia - OB (+) --> need to discuss w/u - s/p Suprapubic catheter - DM - Leukocytosis Recommendations - GT feeding - follow residuals - Elevate HOB - monitor H&H - No famly per pt friend - DATABASE ANALYST to investigate - PPI - abx Subjective Allergies: Coded Allergies: No Known Allergies (Verified , 09/26/12) Subjective above noted d/w RN tolerating feeds non communicative being considered for tracheostomy Objective Last 24 Hour Vital Signs Date Time Temp Pulse Resp B/P (MAP) Pulse Ox O2 Delivery O2 Flow Rate FiO2 07/13/17 18:00 75 17 110/56 98 Mechanical Ventilator 35 07/13/17 17:02 71 13 35 07/13/17 17:00 77 16 113/58 100 Mechanical Ventilator 35 07/13/17 16:00 78 07/13/17 16:00 35 07/13/17 16:00 98.9 79 16 116/62 98 Mechanical Ventilator 35 07/13/17 15:19 93 25 35 07/13/17 15:00 69 18 119/57 100 Mechanical Ventilator 35 07/13/17 14:00 80 16 92/46 97 Mechanical Ventilator 35 07/13/17 13:00 70 16 100/53 100 Mechanical Ventilator 35 07/13/17 12:59 74 15 35 07/13/17 12:00 84 07/13/17 12:00 35 07/13/17 12:00 98.3 81 16 127/65 100 Mechanical Ventilator 35 07/13/17 11:26 94 20 35 07/13/17 11:00 64 16 104/51 100 Mechanical Ventilator 35 07/13/17 10:00 75 15 120/58 100 Mechanical Ventilator 35 07/13/17 09:10 77 15 35 07/13/17 09:00 82 15 115/66 99 Mechanical Ventilator 35 07/13/17 08:00 98.9 93 15 121/58 99 Mechanical Ventilator 35 07/13/17 08:00 88 07/13/17 08:00 35 07/13/17 07:28 93 26 35 07/13/17 07:00 87 15 110/60 100 Mechanical Ventilator 35 07/13/17 06:00 73 15 125/73 100 Mechanical Ventilator 35 07/13/17 05:25 76 14 35 07/13/17 05:00 77 16 100/46 100 Mechanical Ventilator 35 07/13/17 04:00 98.6 89 15 112/54 99 Mechanical Ventilator 35 07/13/17 04:00 89 07/13/17 04:00 35 07/13/17 03:00 73 15 132/72 98 Mechanical Ventilator 35 07/13/17 02:48 81 15 35 07/13/17 02:00 71 15 93/46 97 Mechanical Ventilator 35 07/13/17 01:35 71 15 35 07/13/17 01:00 86 15 117/60 97 Mechanical Ventilator 35 07/13/17 00:00 75 07/13/17 00:00 35 07/13/17 00:00 98.5 77 15 103/50 97 Mechanical Ventilator 35 07/12/17 23:26 89 18 35 07/12/17 23:00 76 14 104/48 97 Mechanical Ventilator 35 07/12/17 22:00 85 16 142/61 97 Mechanical Ventilator 35 07/12/17 21:31 104/48 07/12/17 21:03 88 19 35 07/12/17 21:00 87 16 132/41 97 Mechanical Ventilator 35 07/12/17 20:00 98.8 75 16 128/77 98 Mechanical Ventilator 35 07/12/17 20:00 75 07/12/17 20:00 35 07/12/17 19:00 74 16 132/41 97 Mechanical Ventilator 35 Intake and Output 07/13/17 07/14/17 19:00 07:00 Intake Total 775 ml Output Total 1300 ml Balance -525 ml Intake Free Water 50 ml IV Total 120 ml Tube Feeding 605 ml Output Urine Total 1300 ml Laboratory Tests 07/13/17 09:45: Prothrombin Time 10.5, Prothromb Time International Ratio 1.0 Height (Feet): 6 Weight (Pounds): 190 Objective Eldely WM NCAT, (+) ETT supple, (+ ) IJ catheter CTA RR soft flat, (+) GT, (+) SP catheter no edema OBS CURTIS GARCIA Jul 13, 2017 18:59
[2017-07-13] MEDS: Dyna-Hex 2% Top Sol 2oz TOPIC SCH (20:22)
--- NOTE | 2017-07-13 20:31 | General Progress Note ---
Assessment/Plan Assessment/Plan ASSESSMENT AND RECOMMENDATIONS: 1. OB positive? rule out GI bleed. H/H stable, GI service following and work up is to follow 2. Prostate cancer, controlled at this time. Current PSA of 5.6. With suprapubic catheter 3. Leukocytosis, secondary to underlying infection, infiltrates noted.ID following. --> wbc count has normalized. 4. Anemia, rule out gastrointestinal bleed. Ferritin wnl. H/H stable at this time 5. Sepsis resolved 6. Respiratory failure. On a vent. Pulmonology following, currently not able to wean. Pending trach Subjective Allergies: Coded Allergies: No Known Allergies (Verified , 09/26/12) All Systems: reviewed and negative except above Subjective NAD Objective Last 24 Hour Vital Signs Date Time Temp Pulse Resp B/P (MAP) Pulse Ox O2 Delivery O2 Flow Rate FiO2 07/13/17 19:30 85 26 35 07/13/17 19:00 78 16 102/66 100 Mechanical Ventilator 35 07/13/17 18:00 75 17 110/56 98 Mechanical Ventilator 35 07/13/17 17:02 71 13 35 07/13/17 17:00 77 16 113/58 100 Mechanical Ventilator 35 07/13/17 16:00 78 07/13/17 16:00 35 07/13/17 16:00 98.9 79 16 116/62 98 Mechanical Ventilator 35 07/13/17 15:19 93 25 35 07/13/17 15:00 69 18 119/57 100 Mechanical Ventilator 35 07/13/17 14:00 80 16 92/46 97 Mechanical Ventilator 35 07/13/17 13:00 70 16 100/53 100 Mechanical Ventilator 35 07/13/17 12:59 74 15 35 07/13/17 12:00 84 07/13/17 12:00 35 07/13/17 12:00 98.3 81 16 127/65 100 Mechanical Ventilator 35 07/13/17 11:26 94 20 35 07/13/17 11:00 64 16 104/51 100 Mechanical Ventilator 35 07/13/17 10:00 75 15 120/58 100 Mechanical Ventilator 35 07/13/17 09:10 77 15 35 07/13/17 09:00 82 15 115/66 99 Mechanical Ventilator 35 07/13/17 08:00 98.9 93 15 121/58 99 Mechanical Ventilator 35 07/13/17 08:00 88 12/19/17 08:00 35 07/13/17 07:28 93 26 35 07/13/17 07:00 87 15 110/60 100 Mechanical Ventilator 35 07/13/17 06:00 73 15 125/73 100 Mechanical Ventilator 35 07/13/17 05:25 76 14 35 07/13/17 05:00 77 16 100/46 100 Mechanical Ventilator 35 07/13/17 04:00 98.6 89 15 112/54 99 Mechanical Ventilator 35 07/13/17 04:00 89 07/13/17 04:00 35 07/13/17 03:00 73 15 132/72 98 Mechanical Ventilator 35 07/13/17 02:48 81 15 35 07/13/17 02:00 71 15 93/46 97 Mechanical Ventilator 35 07/13/17 01:35 71 15 35 07/13/17 01:00 86 15 117/60 97 Mechanical Ventilator 35 07/13/17 00:00 75 07/13/17 00:00 35 07/13/17 00:00 98.5 77 15 103/50 97 Mechanical Ventilator 35 07/12/17 23:26 89 18 35 07/12/17 23:00 76 14 104/48 97 Mechanical Ventilator 35 07/12/17 22:00 85 16 142/61 97 Mechanical Ventilator 35 07/12/17 21:31 104/48 07/12/17 21:03 88 19 35 07/12/17 21:00 87 16 132/41 97 Mechanical Ventilator 35 Intake and Output 07/13/17 07/14/17 19:00 07:00 Intake Total 830 ml Output Total 1430 ml Balance -600 ml Intake Free Water 50 ml IV Total 120 ml Tube Feeding 660 ml Output Urine Total 1430 ml Laboratory Tests 07/13/17 09:45: Prothrombin Time 10.5, Prothromb Time International Ratio 1.0 Height (Feet): 6 Weight (Pounds): 190 General Appearance: no apparent distress EENT: normal ENT inspection Neck: normal alignment Cardiovascular: normal peripheral pulses Respiratory/Chest: chest wall non-tender Abdomen: normal bowel sounds Extremities: normal range of motion Jose Luis Rendon Jul 13, 2017 20:31
--- NOTE | 2017-07-13 21:14 | Cardiology Progress Note ---
Assessment/Plan Assessment/Plan 1. Septic shock resolved, due to underlying pneumonia and associated large left pleural effusion. 2. Sinus tachycardia,resolved, likely due to hypoxemia/sepsis/hypovolemia. 3. Respiratory failure, ?ARDS, awaiting bioethics to evaluate before Trach evaluation. 4. History of cerebrovascular accident. Subjective Subjective Sinus rhythm at 75. Still intubated. Objective Last 24 Hour Vital Signs Date Time Temp Pulse Resp B/P (MAP) Pulse Ox O2 Delivery O2 Flow Rate FiO2 07/13/17 19:30 85 26 35 07/13/17 19:00 78 16 102/66 100 Mechanical Ventilator 35 07/13/17 18:00 75 17 110/56 98 Mechanical Ventilator 35 07/13/17 17:02 71 13 35 07/13/17 17:00 77 16 113/58 100 Mechanical Ventilator 35 07/13/17 16:00 78 07/13/17 16:00 35 07/13/17 16:00 98.9 79 16 116/62 98 Mechanical Ventilator 35 07/13/17 15:19 93 25 35 07/13/17 15:00 69 18 119/57 100 Mechanical Ventilator 35 07/13/17 14:00 80 16 92/46 97 Mechanical Ventilator 35 07/13/17 13:00 70 16 100/53 100 Mechanical Ventilator 35 07/13/17 12:59 74 15 35 07/13/17 12:00 84 07/13/17 12:00 35 07/13/17 12:00 98.3 81 16 127/65 100 Mechanical Ventilator 35 07/13/17 11:26 94 20 35 07/13/17 11:00 64 16 104/51 100 Mechanical Ventilator 35 07/13/17 10:00 75 15 120/58 100 Mechanical Ventilator 35 07/13/17 09:10 77 15 35 07/13/17 09:00 82 15 115/66 99 Mechanical Ventilator 35 07/13/17 08:00 98.9 93 15 121/58 99 Mechanical Ventilator 35 07/13/17 08:00 88 07/13/17 08:00 35 07/13/17 07:28 93 26 35 07/13/17 07:00 87 15 110/60 100 Mechanical Ventilator 35 07/13/17 06:00 73 15 125/73 100 Mechanical Ventilator 35 07/13/17 05:25 76 14 35 07/13/17 05:00 77 16 100/46 100 Mechanical Ventilator 35 07/13/17 04:00 98.6 89 15 112/54 99 Mechanical Ventilator 35 07/13/17 04:00 89 07/13/17 04:00 35 07/13/17 03:00 73 15 132/72 98 Mechanical Ventilator 35 07/13/17 02:48 81 15 35 07/13/17 02:00 71 15 93/46 97 Mechanical Ventilator 35 07/13/17 01:35 71 15 35 07/13/17 01:00 86 15 117/60 97 Mechanical Ventilator 35 07/13/17 00:00 75 07/13/17 00:00 35 07/13/17 00:00 98.5 77 15 103/50 97 Mechanical Ventilator 35 07/12/17 23:26 89 18 35 07/12/17 23:00 76 14 104/48 97 Mechanical Ventilator 35 07/12/17 22:00 85 16 142/61 97 Mechanical Ventilator 35 07/12/17 21:31 104/48 Abdomen: hypoactive bowel sounds Neurologic: normal mood/affect - RVSP 33 Mm Intake and Output 07/13/17 07/14/17 19:00 07:00 Intake Total 830 ml Output Total 1430 ml Balance -600 ml Intake Free Water 50 ml IV Total 120 ml Tube Feeding 660 ml Output Urine Total 1430 ml 2D Echo: LVEF 40-45%, Apical WMA, RVSP 33mmHg, Mild AR/MR, Grade I LVDD, Large L PE Laboratory Tests Test 07/13/17 09:45 Prothrombin Time 10.5 SEC (9.30-11.50) Prothromb Time International Ratio 1.0 (0.9-1.1) Objective GENERAL: The patient is a chronically ill appearing, 76-year-old gentleman, intubated. HEENT: Atraumatic and normocephalic. ENT, pupils are equal, round, and reactive to light and accommodation. Bitemporal wasting. NECK: JVP cannot be assessed due to positive inspiratory pressure. CVS: Normal S1 and S2. Tachycardic. I do not appreciate any murmur, gallop, or rub at this time. LUNGS: Bilateral rhonchi, decrease BS L>R, increased dullness L base ABDOMEN: Soft, nontender, and nondistended. Presence of a G-tube. Positive bowel sounds. EXTREMITIES: There is no evidence of edema, clubbing, or cyanosis. FRANCISCO SPAIN Jul 13, 2017 21:14
--- NOTE | 2017-07-13 21:18 | General Progress Note ---
Assessment/Plan Problem List: (1) COPD (chronic obstructive pulmonary disease) ICD Codes: J44.9 - Chronic obstructive pulmonary disease SNOMED: 22087218 (2) Suprapubic catheter ICD Codes: Z93.59 - Other cystostomy status SNOMED: 519426948, 766556094 (3) Catheter-associated urinary tract infection ICD Codes: T83.511A - Infection and inflammatory reaction due to indwelling urethral catheter, initial encounter; N39.0 - Urinary tract infection, site not specified SNOMED: 841983062 (4) Anemia ICD Codes: D64.9 - Anemia, unspecified SNOMED: 954576489 (5) Dementia ICD Codes: F03.90 - Unspecified dementia without behavioral disturbance SNOMED: 64629288 (6) Seizure ICD Codes: R56.9 - Unspecified convulsions SNOMED: 57503540 (7) Prostate cancer ICD Codes: C61 - Malignant neoplasm of prostate SNOMED: 581481793 (8) COPD (chronic obstructive pulmonary disease) ICD Codes: J44.9 - Chronic obstructive pulmonary disease, unspecified SNOMED: 62367140 (9) Respiratory distress ICD Codes: R06.03 - Acute respiratory distress SNOMED: 666275712 (10) Sepsis ICD Codes: A41.9 - Sepsis, unspecified organism SNOMED: 82806384 Status: progressing Assessment/Plan intubated pna i favor aggressive treatment and trach if indicated sepsis lethargic Subjective ROS Limited/Unobtainable: Yes Constitutional: Reports: no symptoms Allergies: Coded Allergies: No Known Allergies (Verified , 09/26/12) Objective Last 24 Hour Vital Signs Date Time Temp Pulse Resp B/P (MAP) Pulse Ox O2 Delivery O2 Flow Rate FiO2 07/13/17 19:30 85 26 35 07/13/17 19:00 78 16 102/66 100 Mechanical Ventilator 35 07/13/17 18:00 75 17 110/56 98 Mechanical Ventilator 35 07/13/17 17:02 71 13 35 07/13/17 17:00 77 16 113/58 100 Mechanical Ventilator 35 07/13/17 16:00 78 07/13/17 16:00 35 07/13/17 16:00 98.9 79 16 116/62 98 Mechanical Ventilator 35 07/13/17 15:19 93 25 35 07/13/17 15:00 69 18 119/57 100 Mechanical Ventilator 35 07/13/17 14:00 80 16 92/46 97 Mechanical Ventilator 35 07/13/17 13:00 70 16 100/53 100 Mechanical Ventilator 35 07/13/17 12:59 74 15 35 07/13/17 12:00 84 07/13/17 12:00 35 07/13/17 12:00 98.3 81 16 127/65 100 Mechanical Ventilator 35 07/13/17 11:26 94 20 35 07/13/17 11:00 64 16 104/51 100 Mechanical Ventilator 35 07/13/17 10:00 75 15 120/58 100 Mechanical Ventilator 35 07/13/17 09:10 77 15 35 07/13/17 09:00 82 15 115/66 99 Mechanical Ventilator 35 07/13/17 08:00 98.9 93 15 121/58 99 Mechanical Ventilator 35 07/13/17 08:00 88 07/13/17 08:00 35 07/13/17 07:28 93 26 35 07/13/17 07:00 87 15 110/60 100 Mechanical Ventilator 35 07/13/17 06:00 73 15 125/73 100 Mechanical Ventilator 35 07/13/17 05:25 76 14 35 07/13/17 05:00 77 16 100/46 100 Mechanical Ventilator 35 07/13/17 04:00 98.6 89 15 112/54 99 Mechanical Ventilator 35 07/13/17 04:00 89 07/13/17 04:00 35 07/13/17 03:00 73 15 132/72 98 Mechanical Ventilator 35 07/13/17 02:48 81 15 35 07/13/17 02:00 71 15 93/46 97 Mechanical Ventilator 35 07/13/17 01:35 71 15 35 07/13/17 01:00 86 15 117/60 97 Mechanical Ventilator 35 07/13/17 00:00 75 07/13/17 00:00 35 07/13/17 00:00 98.5 77 15 103/50 97 Mechanical Ventilator 35 07/12/17 23:26 89 18 35 07/12/17 23:00 76 14 104/48 97 Mechanical Ventilator 35 07/12/17 22:00 85 16 142/61 97 Mechanical Ventilator 35 07/12/17 21:31 104/48 Intake and Output 07/13/17 07/14/17 19:00 07:00 Intake Total 830 ml Output Total 1430 ml Balance -600 ml Intake Free Water 50 ml IV Total 120 ml Tube Feeding 660 ml Output Urine Total 1430 ml Laboratory Tests 07/13/17 09:45: Prothrombin Time 10.5, Prothromb Time International Ratio 1.0 Height (Feet): 6 Weight (Pounds): 190 General Appearance: lethargic, confused Sary Oakes MD Jul 13, 2017 21:17
[2017-07-14] VITALS (24 sets, daily range): BP systolic 77–139; BP diastolic 43–98
[2017-07-14] MEDS: NovoLOG Insulin Flexpen SUBQ SCH ×4 (00:05→17:35)
[2017-07-14 04:44] LABS: BASOPHILS % (AUTO) 1.5 % (0.0-2.0); EOSINOPHILS % (AUTO) 5.9 % (0.0-3.0); LYMPHOCYTES % (AUTO) 17.2 % (20.0-45.0); MEAN CORPUSCULAR HEMOGLOBIN 29.2 PG (27.0-31.0); MEAN CORPUSCULAR HGB CONC 32.1 G/DL (32.0-36.0); MEAN CORPUSCULAR VOLUME 91 FL (80-99); MEAN PLATELET VOLUME 7.3 FL (6.5-10.1); MONOCYTES % (AUTO) 10.4 % (1.0-10.0); PLATELET COUNT 478 K/UL (150-450); RED BLOOD COUNT 3.06 M/UL (4.70-6.10); RED CELL DISTRIBUTION WIDTH 13.1 % (11.6-14.8); WHITE BLOOD COUNT 6.4 K/UL (4.8-10.8)
[2017-07-14 05:14] LABS: ALANINE AMINOTRANSFERASE 12 U/L (12-78); ALBUMIN/GLOBULIN RATIO 0.4 (1.0-2.7); ANION GAP 4 mmol/L (5-15); ASPARTATE AMINO TRANSFERASE 12 U/L (15-37); CALCIUM 8.7 MG/DL (8.5-10.1); CARBON DIOXIDE 32 MMOL/L (21-32); CHLORIDE 106 MMOL/L (98-107); CREATININE 0.7 MG/DL (0.55-1.30); CRP QUANT 2.6 mg/dL (0.00-0.90); PHOSPHORUS 3.4 MG/DL (2.5-4.9); POTASSIUM 4.1 MMOL/L (3.5-5.1); SODIUM 142 MMOL/L (136-145); TOTAL PROTEIN 5.6 G/DL (6.4-8.2); URIC ACID 2.8 MG/DL (2.6-7.2)
--- NOTE | 2017-07-14 07:02 | General Progress Note ---
Assessment/Plan Problem List: (1) Diabetes mellitus ICD Codes: E11.9 - Type 2 diabetes mellitus without complications SNOMED: 42569471 (2) ATN (acute tubular necrosis) ICD Codes: N17.0 - Acute kidney failure with tubular necrosis SNOMED: 49327905 (3) G tube feedings ICD Codes: Z93.1 - Gastrostomy status SNOMED: 431647118, 050077549 (4) Dementia ICD Codes: F03.90 - Unspecified dementia without behavioral disturbance SNOMED: 59402566 (5) Respiratory distress ICD Codes: R06.03 - Acute respiratory distress SNOMED: 549753034 (6) Suprapubic catheter ICD Codes: Z93.59 - Other cystostomy status SNOMED: 727683124, 443297755 Assessment/Plan continue Levemir 10 units bid continue Novolog sliding scale Subjective ROS Limited/Unobtainable: Yes Allergies: Coded Allergies: No Known Allergies (Verified , 09/26/12) Subjective events noted interval notes reviewed Objective Last 24 Hour Vital Signs Date Time Temp Pulse Resp B/P (MAP) Pulse Ox O2 Delivery O2 Flow Rate FiO2 07/14/17 05:30 75 15 35 07/14/17 05:00 74 16 133/74 99 Mechanical Ventilator 35 07/14/17 04:00 74 16 107/54 99 Mechanical Ventilator 35 07/14/17 04:00 35 07/14/17 04:00 73 07/14/17 04:00 98.4 74 16 107/54 99 Mechanical Ventilator 35 07/14/17 03:30 81 18 35 07/14/17 03:00 74 16 107/54 99 Mechanical Ventilator 35 07/14/17 02:00 73 15 103/49 99 Mechanical Ventilator 35 07/14/17 01:30 78 15 35 07/14/17 01:00 73 16 91/44 99 Mechanical Ventilator 35 07/14/17 00:00 35 07/14/17 00:00 98.6 80 16 103/49 98 Mechanical Ventilator 35 07/14/17 00:00 81 07/13/17 23:00 80 16 103/49 98 Mechanical Ventilator 35 07/13/17 22:49 76 16 35 07/13/17 22:00 76 16 106/74 98 Mechanical Ventilator 35 07/13/17 21:29 80 21 35 07/13/17 21:25 106/54 07/13/17 21:00 79 20 106/54 97 Mechanical Ventilator 35 07/13/17 20:00 98.4 86 20 114/59 97 Mechanical Ventilator 35 07/13/17 20:00 35 07/13/17 19:30 85 26 35 07/13/17 19:00 78 16 102/66 100 Mechanical Ventilator 35 07/13/17 18:00 75 17 110/56 98 Mechanical Ventilator 35 07/13/17 17:02 71 13 35 07/13/17 17:00 77 16 113/58 100 Mechanical Ventilator 35 07/13/17 16:00 78 07/13/17 16:00 35 07/13/17 16:00 98.9 79 16 116/62 98 Mechanical Ventilator 35 07/13/17 15:19 93 25 35 07/13/17 15:00 69 18 119/57 100 Mechanical Ventilator 35 07/13/17 14:00 80 16 92/46 97 Mechanical Ventilator 35 07/13/17 13:00 70 16 100/53 100 Mechanical Ventilator 35 07/13/17 12:59 74 15 35 07/13/17 12:00 84 07/13/17 12:00 35 07/13/17 12:00 98.3 81 16 127/65 100 Mechanical Ventilator 35 07/13/17 11:26 94 20 35 07/13/17 11:00 64 16 104/51 100 Mechanical Ventilator 35 07/13/17 10:00 75 15 120/58 100 Mechanical Ventilator 35 07/13/17 09:10 77 15 35 07/13/17 09:00 82 15 115/66 99 Mechanical Ventilator 35 07/13/17 08:00 98.9 93 15 121/58 99 Mechanical Ventilator 35 07/13/17 08:00 88 07/13/17 08:00 35 07/13/17 07:28 93 26 35 Laboratory Tests 07/13/17 09:45: Prothrombin Time 10.5, Prothromb Time International Ratio 1.0 07/14/17 03:15: White Blood Count 6.4, Red Blood Count 3.06L, Hemoglobin 9.0L, Hematocrit 27.9L , Mean Corpuscular Volume 91, Mean Corpuscular Hemoglobin 29.2, Mean Corpuscular Hemoglobin Concent 32.1, Red Cell Distribution Width 13.1, Platelet Count 478H, Mean Platelet Volume 7.3, Neutrophils (%) (Auto) 65.0, Lymphocytes ( %) (Auto) 17.2L, Monocytes (%) (Auto) 10.4H, Eosinophils (%) (Auto) 5.9H, Basophils (%) (Auto) 1.5, Sodium Level 142, Potassium Level 4.1, Chloride Level 106, Carbon Dioxide Level 32, Anion Gap 4L, Blood Urea Nitrogen 15, Creatinine 0.7, Estimat Glomerular Filtration Rate , Glucose Level 100, Uric Acid 2.8, Calcium Level 8.7, Phosphorus Level 3.4, Magnesium Level 2.0, Total Bilirubin 0.2, Gamma Glutamyl Transpeptidase 31, Aspartate Amino Transf (AST/SGOT) 12L, Alanine Aminotransferase (ALT/SGPT) 12, Alkaline Phosphatase 73, C-Reactive Protein, Quantitative 2.6H, Pro-B-Type Natriuretic Peptide 9678H, Total Protein 5.6L, Albumin 1.5L, Globulin 4.1, Albumin/Globulin Ratio 0.4L Height (Feet): 6 Weight (Pounds): 176 General Appearance: moderate distress Neck: normal alignment Cardiovascular: regular rhythm Respiratory/Chest: decreased breath sounds Abdomen: normal bowel sounds Pelvis: normal external exam Edema: 1+ Arm (L), 1+ Arm (R), 1+ Leg (L), 1+ Leg (R), 1+ Pedal (L), 1+ Pedal ( R), 1+ Generalized Objective Current Medications Medications (Trade) Dose Ordered Sig/Matt Route PRN Reason Start Time Stop Time Status Last Admin Dose Admin Acetaminophen (Tylenol) 650 mg Q4H PRN GT Mild Pain (1-3) 07/02/17 19:00 08/01/17 18:59 07/05/17 09:12 Aspirin (ASA) 81 mg DAILY GT 07/03/17 09:00 08/02/17 08:59 07/13/17 08:41 Chlorhexidine Gluconate (Mari-Hex 2%) 1 applic DAILY@1999 TOPIC 07/03/17 20:00 08/02/17 19:59 07/13/17 20:22 Dextrose (Dextrose 50%) STAT PRN IV Hypoglycemia 07/02/17 19:00 08/01/17 18:59 07/11/17 23:43 Enoxaparin Sodium (Lovenox) 80 mg Q12HR SUBQ 07/09/17 21:00 08/08/17 20:59 07/13/17 20:44 Insulin Aspart (NovoLOG) Q6HR SUBQ 07/04/17 00:00 08/01/17 20:59 07/14/17 00:05 Insulin Detemir (Levemir) 10 units BID SUBQ 07/10/17 09:00 08/09/17 08:59 07/13/17 17:56 Midodrine (Pro-Amatine) 10 mg THREE TIMES A DAY GT 07/11/17 13:00 08/10/17 12:59 07/12/17 17:07 Norepinephrine Bitartrate 4 mg/ Dextrose 250 ml @ 0 mls/hr Q24H IV 07/02/17 21:31 08/01/17 21:30 07/05/17 10:12 Ondansetron HCl (Zofran) 4 mg Q6H PRN GT Nausea & Vomiting 07/02/17 19:00 08/01/17 18:59 Pantoprazole (Protonix) 40 mg DAILY IV 07/03/17 09:00 08/02/17 08:59 07/13/17 08:41 Vitamin A/Vitamin D (A & D Oint) 1 applic EVERY 12 HOURS TOPIC 07/04/17 21:00 08/03/17 20:59 07/13/17 20:45 Item Value Date Time Bedside Blood Glucose 125 mg/dl H 07/14/17 0005 Bedside Blood Glucose 164 mg/dl H 07/13/17 1756 Bedside Blood Glucose 149 mg/dl H 07/13/17 1235 Bedside Blood Glucose 110 mg/dl 07/13/17 0848 Bedside Blood Glucose 110 mg/dl 07/13/17 0600 Bedside Blood Glucose 107 mg/dl 07/13/17 0000 MARIA EUGENIA AUGUST Jul 14, 2017 07:02
[2017-07-14] MEDS: Aspirin Baby 81mg GT SCH (07:41)
[2017-07-14] MEDS: Pantoprazole Inj IV SCH (08:38)
[2017-07-14] MEDS: Midodrine 10mg tab GT SCH ×3 (08:38→17:29)
[2017-07-14] MEDS: Levemir Flexpen SUBQ SCH ×2 (08:48→17:34)
--- NOTE | 2017-07-14 09:44 | Nephrology Progress Note ---
Assessment/Plan Problem List: (1) Respiratory distress (2) Suprapubic catheter (3) Septic shock (4) Electrolyte abnormality Assessment HypoKalemia- Respiratory Failure on Vent Septic shock / Pneumonia / UTI Oliguria due to low BP Prostate cancer with suprapubic catheter. Severe Alzheimer dementia. Severe protein-calorie malnutrition. Anemia. Hyperglycemia. Plan Plan: FLuid challenge- Cortisol level wnl Antibiotics pulmonary support K supplements Per order Subjective ROS Limited/Unobtainable: Yes Objective Objective Last 24 Hour Vital Signs Date Time Temp Pulse Resp B/P (MAP) Pulse Ox O2 Delivery O2 Flow Rate FiO2 07/14/17 09:00 74 15 91/44 99 Mechanical Ventilator 35 07/14/17 08:55 89 21 30 07/14/17 08:00 99.0 78 15 124/57 99 Mechanical Ventilator 35 07/14/17 08:00 79 07/14/17 08:00 35 07/14/17 07:16 76 16 35 07/14/17 07:00 79 16 107/49 99 Mechanical Ventilator 35 07/14/17 06:00 75 16 130/70 99 Mechanical Ventilator 35 07/14/17 05:30 75 15 35 07/14/17 05:00 74 16 133/74 99 Mechanical Ventilator 35 07/14/17 04:00 74 16 107/54 99 Mechanical Ventilator 35 07/14/17 04:00 35 07/14/17 04:00 73 07/14/17 04:00 98.4 74 16 107/54 99 Mechanical Ventilator 35 07/14/17 03:30 81 18 35 07/14/17 03:00 74 16 107/54 99 Mechanical Ventilator 35 07/14/17 02:00 73 15 103/49 99 Mechanical Ventilator 35 07/14/17 01:30 78 15 35 07/14/17 01:00 73 16 91/44 99 Mechanical Ventilator 35 07/14/17 00:00 35 07/14/17 00:00 98.6 80 16 103/49 98 Mechanical Ventilator 35 07/14/17 00:00 81 07/13/17 23:00 80 16 103/49 98 Mechanical Ventilator 35 07/13/17 22:49 76 16 35 07/13/17 22:00 76 16 106/74 98 Mechanical Ventilator 35 07/13/17 21:29 80 21 35 07/13/17 21:25 106/54 07/13/17 21:00 79 20 106/54 97 Mechanical Ventilator 35 07/13/17 20:00 98.4 86 20 114/59 97 Mechanical Ventilator 35 07/13/17 20:00 35 07/13/17 19:30 85 26 35 07/13/17 19:00 78 16 102/66 100 Mechanical Ventilator 35 07/13/17 18:00 75 17 110/56 98 Mechanical Ventilator 35 07/13/17 17:02 71 13 35 07/13/17 17:00 77 16 113/58 100 Mechanical Ventilator 35 07/13/17 16:00 78 07/13/17 16:00 35 07/13/17 16:00 98.9 79 16 116/62 98 Mechanical Ventilator 35 07/13/17 15:19 93 25 35 07/13/17 15:00 69 18 119/57 100 Mechanical Ventilator 35 07/13/17 14:00 80 16 92/46 97 Mechanical Ventilator 35 07/13/17 13:00 70 16 100/53 100 Mechanical Ventilator 35 07/13/17 12:59 74 15 35 07/13/17 12:00 84 07/13/17 12:00 35 07/13/17 12:00 98.3 81 16 127/65 100 Mechanical Ventilator 35 07/13/17 11:26 94 20 35 07/13/17 11:00 64 16 104/51 100 Mechanical Ventilator 35 07/13/17 10:00 75 15 120/58 100 Mechanical Ventilator 35 Intake and Output 07/14/17 07/15/17 19:00 07:00 Intake Total 110 ml Output Total 400 ml Balance -290 ml Tube Feeding 110 ml Output Urine Total 400 ml Laboratory Tests 07/13/17 09:45: Prothrombin Time 10.5, Prothromb Time International Ratio 1.0 07/14/17 03:15: White Blood Count 6.4, Red Blood Count 3.06L, Hemoglobin 9.0L, Hematocrit 27.9L , Mean Corpuscular Volume 91, Mean Corpuscular Hemoglobin 29.2, Mean Corpuscular Hemoglobin Concent 32.1, Red Cell Distribution Width 13.1, Platelet Count 478H, Mean Platelet Volume 7.3, Neutrophils (%) (Auto) 65.0, Lymphocytes ( %) (Auto) 17.2L, Monocytes (%) (Auto) 10.4H, Eosinophils (%) (Auto) 5.9H, Basophils (%) (Auto) 1.5, Sodium Level 142, Potassium Level 4.1, Chloride Level 106, Carbon Dioxide Level 32, Anion Gap 4L, Blood Urea Nitrogen 15, Creatinine 0.7, Estimat Glomerular Filtration Rate , Glucose Level 100, Uric Acid 2.8, Calcium Level 8.7, Phosphorus Level 3.4, Magnesium Level 2.0, Total Bilirubin 0.2, Gamma Glutamyl Transpeptidase 31, Aspartate Amino Transf (AST/SGOT) 12L, Alanine Aminotransferase (ALT/SGPT) 12, Alkaline Phosphatase 73, C-Reactive Protein, Quantitative 2.6H, Pro-B-Type Natriuretic Peptide 9678H, Total Protein 5.6L, Albumin 1.5L, Globulin 4.1, Albumin/Globulin Ratio 0.4L Height (Feet): 6 Weight (Pounds): 176 General Appearance: no apparent distress Objective no other change FAITH SEARS Jul 14, 2017 09:44
[2017-07-14] MEDS: Enoxaparin 80mg Inj SUBQ SCH ×2 (09:46→20:59)
[2017-07-14] MEDS: Vitamin A&D Oint 2oz Tube TOPIC SCH ×2 (09:46→21:00)
--- NOTE | 2017-07-14 10:28 | Infectious Diseases Prog Note ---
Assessment/Plan Assessment/Plan A; Septic Shock resolved Complicated UTI with MRSA & pseudomonas s/p RX Pneumonia treated for 10 days CoANS in blood likely contamination Acute respiratory failure MRSA colonization P; observe off antibiotic waiting for Tracheostomy Subjective ROS Limited/Unobtainable: Yes Constitutional: Reports: other - no significant change Neurologic: Reports: confusion, other - on restraint Allergies: Coded Allergies: No Known Allergies (Verified , 09/26/12) Objective Vital Signs Last 24 Hour Vital Signs Date Time Temp Pulse Resp B/P (MAP) Pulse Ox O2 Delivery O2 Flow Rate FiO2 07/14/17 10:00 82 15 111/53 99 Mechanical Ventilator 35 07/14/17 09:00 74 15 91/44 99 Mechanical Ventilator 35 07/14/17 08:55 89 21 30 07/14/17 08:00 99.0 78 15 124/57 99 Mechanical Ventilator 35 07/14/17 08:00 79 07/14/17 08:00 35 07/14/17 07:16 76 16 35 07/14/17 07:00 79 16 107/49 99 Mechanical Ventilator 35 07/14/17 06:00 75 16 130/70 99 Mechanical Ventilator 35 07/14/17 05:30 75 15 35 07/14/17 05:00 74 16 133/74 99 Mechanical Ventilator 35 07/14/17 04:00 74 16 107/54 99 Mechanical Ventilator 35 07/14/17 04:00 35 07/14/17 04:00 73 07/14/17 04:00 98.4 74 16 107/54 99 Mechanical Ventilator 35 07/14/17 03:30 81 18 35 07/14/17 03:00 74 16 107/54 99 Mechanical Ventilator 35 07/14/17 02:00 73 15 103/49 99 Mechanical Ventilator 35 07/14/17 01:30 78 15 35 07/14/17 01:00 73 16 91/44 99 Mechanical Ventilator 35 07/14/17 00:00 35 07/14/17 00:00 98.6 80 16 103/49 98 Mechanical Ventilator 35 07/14/17 00:00 81 07/13/17 23:00 80 16 103/49 98 Mechanical Ventilator 35 07/13/17 22:49 76 16 35 07/13/17 22:00 76 16 106/74 98 Mechanical Ventilator 35 07/13/17 21:29 80 21 35 07/13/17 21:25 106/54 07/13/17 21:00 79 20 106/54 97 Mechanical Ventilator 35 07/13/17 20:00 98.4 86 20 114/59 97 Mechanical Ventilator 35 07/13/17 20:00 35 07/13/17 19:30 85 26 35 07/13/17 19:00 78 16 102/66 100 Mechanical Ventilator 35 07/13/17 18:00 75 17 110/56 98 Mechanical Ventilator 35 07/13/17 17:02 71 13 35 07/13/17 17:00 77 16 113/58 100 Mechanical Ventilator 35 07/13/17 16:00 78 07/13/17 16:00 35 07/13/17 16:00 98.9 79 16 116/62 98 Mechanical Ventilator 35 07/13/17 15:19 93 25 35 07/13/17 15:00 69 18 119/57 100 Mechanical Ventilator 35 07/13/17 14:00 80 16 92/46 97 Mechanical Ventilator 35 07/13/17 13:00 70 16 100/53 100 Mechanical Ventilator 35 07/13/17 12:59 74 15 35 07/13/17 12:00 84 07/13/17 12:00 35 07/13/17 12:00 98.3 81 16 127/65 100 Mechanical Ventilator 35 07/13/17 11:26 94 20 35 07/13/17 11:00 64 16 104/51 100 Mechanical Ventilator 35 Height (Feet): 6 Weight (Pounds): 176 General Appearance: no acute distress HEENT: other - orally intubated Respiratory/Chest: lungs clear, other - on ventilator Cardiovascular: normal rate Abdomen: soft, non tender, other - GT feeding Extremities: no edema Neurologic/Psychiatric: disoriented Musculoskeletal: atrophy Laboratory Tests Test 07/14/17 03:15 White Blood Count 6.4 K/UL (4.8-10.8) Red Blood Count 3.06 M/UL (4.70-6.10) L Hemoglobin 9.0 G/DL (14.2-18.0) L Hematocrit 27.9 % (42.0-52.0) L Mean Corpuscular Volume 91 FL (80-99) Mean Corpuscular Hemoglobin 29.2 PG (27.0-31.0) Mean Corpuscular Hemoglobin Concent 32.1 G/DL (32.0-36.0) Red Cell Distribution Width 13.1 % (11.6-14.8) Platelet Count 478 K/UL (150-450) H Mean Platelet Volume 7.3 FL (6.5-10.1) Neutrophils (%) (Auto) 65.0 % (45.0-75.0) Lymphocytes (%) (Auto) 17.2 % (20.0-45.0) L Monocytes (%) (Auto) 10.4 % (1.0-10.0) H Eosinophils (%) (Auto) 5.9 % (0.0-3.0) H Basophils (%) (Auto) 1.5 % (0.0-2.0) Sodium Level 142 MMOL/L (136-145) Potassium Level 4.1 MMOL/L (3.5-5.1) Chloride Level 106 MMOL/L (98-107) Carbon Dioxide Level 32 MMOL/L (21-32) Anion Gap 4 mmol/L (5-15) L Blood Urea Nitrogen 15 mg/dL (7-18) Creatinine 0.7 MG/DL (0.55-1.30) Estimat Glomerular Filtration Rate mL/min (>60) Glucose Level 100 MG/DL (74-106) Uric Acid 2.8 MG/DL (2.6-7.2) Calcium Level 8.7 MG/DL (8.5-10.1) Phosphorus Level 3.4 MG/DL (2.5-4.9) Magnesium Level 2.0 MG/DL (1.8-2.4) Total Bilirubin 0.2 MG/DL (0.2-1.0) Gamma Glutamyl Transpeptidase 31 U/L (5-85) Aspartate Amino Transf (AST/SGOT) 12 U/L (15-37) L Alanine Aminotransferase (ALT/SGPT) 12 U/L (12-78) Alkaline Phosphatase 73 U/L (46-116) C-Reactive Protein, Quantitative 2.6 mg/dL (0.00-0.90) H Pro-B-Type Natriuretic Peptide 9678 pg/mL (0-125) H Total Protein 5.6 G/DL (6.4-8.2) L Albumin 1.5 G/DL (3.4-5.0) L Globulin 4.1 g/dL Albumin/Globulin Ratio 0.4 (1.0-2.7) L Current Medications Medications (Trade) Dose Ordered Sig/Matt Route PRN Reason Start Time Stop Time Status Last Admin Dose Admin Acetaminophen (Tylenol) 650 mg Q4H PRN GT Mild Pain (1-3) 07/02/17 19:00 08/01/17 18:59 07/05/17 09:12 Aspirin (ASA) 81 mg DAILY GT 07/03/17 09:00 08/02/17 08:59 07/13/17 08:41 Chlorhexidine Gluconate (Mari-Hex 2%) 1 applic DAILY@1999 TOPIC 07/03/17 20:00 08/02/17 19:59 07/13/17 20:22 Dextrose (Dextrose 50%) STAT PRN IV Hypoglycemia 07/02/17 19:00 08/01/17 18:59 07/11/17 23:43 Enoxaparin Sodium (Lovenox) 80 mg Q12HR SUBQ 07/09/17 21:00 08/08/17 20:59 07/14/17 09:46 Insulin Aspart (NovoLOG) Q6HR SUBQ 07/04/17 00:00 08/01/17 20:59 07/14/17 00:05 Insulin Detemir (Levemir) 10 units BID SUBQ 07/10/17 09:00 08/09/17 08:59 07/14/17 08:48 Midodrine (Pro-Amatine) 10 mg THREE TIMES A DAY GT 07/11/17 13:00 08/10/17 12:59 07/14/17 08:38 Norepinephrine Bitartrate 4 mg/ Dextrose 250 ml @ 0 mls/hr Q24H IV 07/02/17 21:31 08/01/17 21:30 07/05/17 10:12 Ondansetron HCl (Zofran) 4 mg Q6H PRN GT Nausea & Vomiting 07/02/17 19:00 08/01/17 18:59 Pantoprazole (Protonix) 40 mg DAILY IV 07/03/17 09:00 08/02/17 08:59 07/14/17 08:38 Vitamin A/Vitamin D (A & D Oint) 1 applic EVERY 12 HOURS TOPIC 07/04/17 21:00 08/03/17 20:59 07/14/17 09:46 BREANNE CERVANTES Jul 14, 2017 10:28
--- NOTE | 2017-07-14 10:59 | General Progress Note ---
Assessment/Plan Assessment/Plan ASSESSMENT AND RECOMMENDATIONS: 1. OB positive? rule out GI bleed. H/H stable, GI service following. 2. Prostate cancer, controlled at this time. Current PSA of 5.6. With suprapubic catheter 3. Leukocytosis, secondary to underlying infection, infiltrates noted.ID following. --> wbc count has normalized. Off abx 4. Anemia, rule out gastrointestinal bleed. Ferritin wnl. H/H stable at this time 5. Sepsis resolved 6. Respiratory failure. On a vent. Pulmonology following, currently not able to wean. Pending trach Subjective Constitutional: Reports: weakness Allergies: Coded Allergies: No Known Allergies (Verified , 09/26/12) All Systems: reviewed and negative except above Subjective does not open eyes Objective Last 24 Hour Vital Signs Date Time Temp Pulse Resp B/P (MAP) Pulse Ox O2 Delivery O2 Flow Rate FiO2 07/14/17 10:00 82 15 111/53 99 Mechanical Ventilator 35 07/14/17 09:00 74 15 91/44 99 Mechanical Ventilator 35 07/14/17 08:55 89 21 30 07/14/17 08:00 99.0 78 15 124/57 99 Mechanical Ventilator 35 07/14/17 08:00 79 07/14/17 08:00 35 07/14/17 07:16 76 16 35 07/14/17 07:00 79 16 107/49 99 Mechanical Ventilator 35 07/14/17 06:00 75 16 130/70 99 Mechanical Ventilator 35 07/14/17 05:30 75 15 35 07/14/17 05:00 74 16 133/74 99 Mechanical Ventilator 35 07/14/17 04:00 74 16 107/54 99 Mechanical Ventilator 35 07/14/17 04:00 35 07/14/17 04:00 73 07/14/17 04:00 98.4 74 16 107/54 99 Mechanical Ventilator 35 07/14/17 03:30 81 18 35 07/14/17 03:00 74 16 107/54 99 Mechanical Ventilator 35 07/14/17 02:00 73 15 103/49 99 Mechanical Ventilator 35 07/14/17 01:30 78 15 35 07/14/17 01:00 73 16 91/44 99 Mechanical Ventilator 35 07/14/17 00:00 35 07/14/17 00:00 98.6 80 16 103/49 98 Mechanical Ventilator 35 07/14/17 00:00 81 07/13/17 23:00 80 16 103/49 98 Mechanical Ventilator 35 07/13/17 22:49 76 16 35 07/13/17 22:00 76 16 106/74 98 Mechanical Ventilator 35 07/13/17 21:29 80 21 35 07/13/17 21:25 106/54 07/13/17 21:00 79 20 106/54 97 Mechanical Ventilator 35 07/13/17 20:00 98.4 86 20 114/59 97 Mechanical Ventilator 35 07/13/17 20:00 35 07/13/17 19:30 85 26 35 07/13/17 19:00 78 16 102/66 100 Mechanical Ventilator 35 07/13/17 18:00 75 17 110/56 98 Mechanical Ventilator 35 07/13/17 17:02 71 13 35 07/13/17 17:00 77 16 113/58 100 Mechanical Ventilator 35 07/13/17 16:00 78 07/13/17 16:00 35 07/13/17 16:00 98.9 79 16 116/62 98 Mechanical Ventilator 35 07/13/17 15:19 93 25 35 07/13/17 15:00 69 18 119/57 100 Mechanical Ventilator 35 07/13/17 14:00 80 16 92/46 97 Mechanical Ventilator 35 07/13/17 13:00 70 16 100/53 100 Mechanical Ventilator 35 07/13/17 12:59 74 15 35 07/13/17 12:00 84 07/13/17 12:00 35 07/13/17 12:00 98.3 81 16 127/65 100 Mechanical Ventilator 35 07/13/17 11:26 94 20 35 07/13/17 11:00 64 16 104/51 100 Mechanical Ventilator 35 Intake and Output 07/14/17 07/15/17 19:00 07:00 Intake Total 165 ml Output Total 650 ml Balance -485 ml Tube Feeding 165 ml Output Urine Total 650 ml Laboratory Tests 07/14/17 03:15: White Blood Count 6.4, Red Blood Count 3.06L, Hemoglobin 9.0L, Hematocrit 27.9L , Mean Corpuscular Volume 91, Mean Corpuscular Hemoglobin 29.2, Mean Corpuscular Hemoglobin Concent 32.1, Red Cell Distribution Width 13.1, Platelet Count 478H, Mean Platelet Volume 7.3, Neutrophils (%) (Auto) 65.0, Lymphocytes ( %) (Auto) 17.2L, Monocytes (%) (Auto) 10.4H, Eosinophils (%) (Auto) 5.9H, Basophils (%) (Auto) 1.5, Sodium Level 142, Potassium Level 4.1, Chloride Level 106, Carbon Dioxide Level 32, Anion Gap 4L, Blood Urea Nitrogen 15, Creatinine 0.7, Estimat Glomerular Filtration Rate , Glucose Level 100, Uric Acid 2.8, Calcium Level 8.7, Phosphorus Level 3.4, Magnesium Level 2.0, Total Bilirubin 0.2, Gamma Glutamyl Transpeptidase 31, Aspartate Amino Transf (AST/SGOT) 12L, Alanine Aminotransferase (ALT/SGPT) 12, Alkaline Phosphatase 73, C-Reactive Protein, Quantitative 2.6H, Pro-B-Type Natriuretic Peptide 9678H, Total Protein 5.6L, Albumin 1.5L, Globulin 4.1, Albumin/Globulin Ratio 0.4L Height (Feet): 6 Weight (Pounds): 176 General Appearance: no apparent distress EENT: normal ENT inspection Neck: normal alignment Cardiovascular: normal peripheral pulses Respiratory/Chest: chest wall non-tender Edema: 1+ Leg (R), 1+ Pedal (L) Neurologic: unresponsive Skin: warm/dry Jose Luis Rendon Jul 14, 2017 10:59
--- NOTE | 2017-07-14 17:14 | Pulmonology Progress Note ---
Assessment/Plan Assessment/Plan 1. Respiratory failure. 2. Sepsis with shock. 3. Pneumonia. 4. Anuria, resolved 5. Prostate cancer with suprapubic catheter. 6. Severe Alzheimer dementia. 7. Severe protein-calorie malnutrition. 8. Anemia. 9. Possible acute myocardial infarction. 10. Azotemia. 11. Hyperglycemia. awaiting bioethics review before trach vent support, try to wean again abx per ID prognosis guarded Subjective ROS Limited/Unobtainable: Yes Allergies: Coded Allergies: No Known Allergies (Verified , 09/26/12) Objective Last 24 Hour Vital Signs Date Time Temp Pulse Resp B/P (MAP) Pulse Ox O2 Delivery O2 Flow Rate FiO2 07/14/17 17:00 88 23 111/75 96 Mechanical Ventilator 30 07/14/17 16:00 35 07/14/17 16:00 78 16 101/46 97 Mechanical Ventilator 35 07/14/17 15:25 76 21 30 07/14/17 15:00 97.8 76 16 104/48 97 Mechanical Ventilator 35 07/14/17 14:00 76 17 110/68 98 Mechanical Ventilator 35 07/14/17 13:25 90 20 30 07/14/17 13:00 77 16 118/52 98 Mechanical Ventilator 35 07/14/17 13:00 74 15 118/52 98 Mechanical Ventilator 35 07/14/17 12:00 74 07/14/17 12:00 35 07/14/17 12:00 98.9 78 15 115/50 99 Mechanical Ventilator 35 07/14/17 11:27 95 24 30 07/14/17 11:00 87 15 132/78 98 Mechanical Ventilator 35 07/14/17 10:00 82 15 111/53 99 Mechanical Ventilator 35 07/14/17 09:00 74 15 91/44 99 Mechanical Ventilator 35 07/14/17 08:55 89 21 30 07/14/17 08:00 99.0 78 15 124/57 99 Mechanical Ventilator 35 07/14/17 08:00 79 07/14/17 08:00 35 07/14/17 07:16 76 16 35 07/14/17 07:00 79 16 107/49 99 Mechanical Ventilator 35 07/14/17 06:00 75 16 130/70 99 Mechanical Ventilator 35 07/14/17 05:30 75 15 35 07/14/17 05:00 74 16 133/74 99 Mechanical Ventilator 35 07/14/17 04:00 74 16 107/54 99 Mechanical Ventilator 35 07/14/17 04:00 35 07/14/17 04:00 73 07/14/17 04:00 98.4 74 16 107/54 99 Mechanical Ventilator 35 07/14/17 03:30 81 18 35 07/14/17 03:00 74 16 107/54 99 Mechanical Ventilator 35 07/14/17 02:00 73 15 103/49 99 Mechanical Ventilator 35 07/14/17 01:30 78 15 35 07/14/17 01:00 73 16 91/44 99 Mechanical Ventilator 35 07/14/17 00:00 35 07/14/17 00:00 98.6 80 16 103/49 98 Mechanical Ventilator 35 07/14/17 00:00 81 07/13/17 23:00 80 16 103/49 98 Mechanical Ventilator 35 07/13/17 22:49 76 16 35 07/13/17 22:00 76 16 106/74 98 Mechanical Ventilator 35 07/13/17 21:29 80 21 35 07/13/17 21:25 106/54 07/13/17 21:00 79 20 106/54 97 Mechanical Ventilator 35 07/13/17 20:00 98.4 86 20 114/59 97 Mechanical Ventilator 35 07/13/17 20:00 35 07/13/17 19:30 85 26 35 07/13/17 19:00 78 16 102/66 100 Mechanical Ventilator 35 07/13/17 18:00 75 17 110/56 98 Mechanical Ventilator 35 Intake and Output 07/13/17 07/14/17 19:00 07:00 Intake Total 830 ml 790 ml Output Total 1430 ml 1290 ml Balance -600 ml -500 ml Intake Free Water 50 ml 130 ml IV Total 120 ml Tube Feeding 660 ml 660 ml Output Urine Total 1430 ml 1290 ml Objective G tube, suprapubic cath General Appearance: no acute distress, cachetic HEENT: atraumatic Respiratory/Chest: lungs clear Cardiovascular: normal rate Abdomen: soft, non tender Laboratory Tests 07/14/17 03:15: White Blood Count 6.4, Red Blood Count 3.06L, Hemoglobin 9.0L, Hematocrit 27.9L , Mean Corpuscular Volume 91, Mean Corpuscular Hemoglobin 29.2, Mean Corpuscular Hemoglobin Concent 32.1, Red Cell Distribution Width 13.1, Platelet Count 478H, Mean Platelet Volume 7.3, Neutrophils (%) (Auto) 65.0, Lymphocytes ( %) (Auto) 17.2L, Monocytes (%) (Auto) 10.4H, Eosinophils (%) (Auto) 5.9H, Basophils (%) (Auto) 1.5, Sodium Level 142, Potassium Level 4.1, Chloride Level 106, Carbon Dioxide Level 32, Anion Gap 4L, Blood Urea Nitrogen 15, Creatinine 0.7, Estimat Glomerular Filtration Rate , Glucose Level 100, Uric Acid 2.8, Calcium Level 8.7, Phosphorus Level 3.4, Magnesium Level 2.0, Total Bilirubin 0.2, Gamma Glutamyl Transpeptidase 31, Aspartate Amino Transf (AST/SGOT) 12L, Alanine Aminotransferase (ALT/SGPT) 12, Alkaline Phosphatase 73, C-Reactive Protein, Quantitative 2.6H, Pro-B-Type Natriuretic Peptide 9678H, Total Protein 5.6L, Albumin 1.5L, Globulin 4.1, Albumin/Globulin Ratio 0.4L Current Medications Medications (Trade) Dose Ordered Sig/Matt Route PRN Reason Start Time Stop Time Status Last Admin Dose Admin Acetaminophen (Tylenol) 650 mg Q4H PRN GT Mild Pain (1-3) 07/02/17 19:00 08/01/17 18:59 07/05/17 09:12 Aspirin (ASA) 81 mg DAILY GT 07/03/17 09:00 08/02/17 08:59 07/13/17 08:41 Chlorhexidine Gluconate (Mari-Hex 2%) 1 applic DAILY@2000 TOPIC 07/03/17 20:00 08/02/17 19:59 07/13/17 20:22 Dextrose (Dextrose 50%) STAT PRN IV Hypoglycemia 07/02/17 19:00 08/01/17 18:59 07/11/17 23:43 Enoxaparin Sodium (Lovenox) 80 mg Q12HR SUBQ 07/09/17 21:00 08/08/17 20:59 07/14/17 09:46 Insulin Aspart (NovoLOG) Q6HR SUBQ 07/04/17 00:00 08/01/17 20:59 07/14/17 11:45 Insulin Detemir (Levemir) 10 units BID SUBQ 07/10/17 09:00 08/09/17 08:59 07/14/17 08:48 Midodrine (Pro-Amatine) 10 mg THREE TIMES A DAY GT 07/11/17 13:00 08/10/17 12:59 07/14/17 13:02 Norepinephrine Bitartrate 4 mg/ Dextrose 250 ml @ 0 mls/hr Q24H IV 07/02/17 21:31 08/01/17 21:30 07/05/17 10:12 Ondansetron HCl (Zofran) 4 mg Q6H PRN GT Nausea & Vomiting 07/02/17 19:00 08/01/17 18:59 Pantoprazole (Protonix) 40 mg DAILY IV 07/03/17 09:00 08/02/17 08:59 07/14/17 08:38 Vitamin A/Vitamin D (A & D Oint) 1 applic EVERY 12 HOURS TOPIC 07/04/17 21:00 08/03/17 20:59 07/14/17 09:46 SABAS KNOTT Jul 14, 2017 17:14
[2017-07-14] MEDS: Dyna-Hex 2% Top Sol 2oz TOPIC SCH (19:41)
--- NOTE | 2017-07-14 20:35 | General Progress Note ---
Assessment/Plan Problem List: (1) COPD (chronic obstructive pulmonary disease) ICD Codes: J44.9 - Chronic obstructive pulmonary disease SNOMED: 27043088 (2) Suprapubic catheter ICD Codes: Z93.59 - Other cystostomy status SNOMED: 442370022, 382650158 (3) Catheter-associated urinary tract infection ICD Codes: T83.511A - Infection and inflammatory reaction due to indwelling urethral catheter, initial encounter; N39.0 - Urinary tract infection, site not specified SNOMED: 561816427 (4) Anemia ICD Codes: D64.9 - Anemia, unspecified SNOMED: 540083116 (5) Dementia ICD Codes: F03.90 - Unspecified dementia without behavioral disturbance SNOMED: 21722726 (6) Seizure ICD Codes: R56.9 - Unspecified convulsions SNOMED: 09777608 (7) Prostate cancer ICD Codes: C61 - Malignant neoplasm of prostate SNOMED: 981334497 (8) COPD (chronic obstructive pulmonary disease) ICD Codes: J44.9 - Chronic obstructive pulmonary disease, unspecified SNOMED: 93540639 (9) Respiratory distress ICD Codes: R06.03 - Acute respiratory distress SNOMED: 151295006 (10) Sepsis ICD Codes: A41.9 - Sepsis, unspecified organism SNOMED: 14161132 Status: progressing Assessment/Plan intubated pna i favor aggressive treatment and trach if indicated sepsis lethargic prostate cancer seizure omn h/o copd not improving Subjective ROS Limited/Unobtainable: Yes Allergies: Coded Allergies: No Known Allergies (Verified , 09/26/12) Objective Last 24 Hour Vital Signs Date Time Temp Pulse Resp B/P (MAP) Pulse Ox O2 Delivery O2 Flow Rate FiO2 07/14/17 20:00 99.0 82 24 114/51 97 Mechanical Ventilator 35 07/14/17 19:33 85 21 30 07/14/17 19:00 97.8 84 22 96/47 94 Mechanical Ventilator 35 07/14/17 18:00 99 24 139/70 96 Mechanical Ventilator 30 07/14/17 17:15 97 31 30 07/14/17 17:00 35 07/14/17 17:00 88 23 111/75 96 Mechanical Ventilator 30 07/14/17 16:00 35 07/14/17 16:00 75 07/14/17 16:00 78 16 101/46 97 Mechanical Ventilator 35 07/14/17 15:25 76 21 30 07/14/17 15:00 97.8 76 16 104/48 97 Mechanical Ventilator 35 07/14/17 14:00 76 17 110/68 98 Mechanical Ventilator 35 07/14/17 13:25 90 20 30 07/14/17 13:00 77 16 118/52 98 Mechanical Ventilator 35 07/14/17 13:00 74 15 118/52 98 Mechanical Ventilator 35 07/14/17 12:00 74 07/14/17 12:00 35 07/14/17 12:00 98.9 78 15 115/50 99 Mechanical Ventilator 35 07/14/17 11:27 95 24 30 07/14/17 11:00 87 15 132/78 98 Mechanical Ventilator 35 07/14/17 10:00 82 15 111/53 99 Mechanical Ventilator 35 07/14/17 09:00 74 15 91/44 99 Mechanical Ventilator 35 07/14/17 08:55 89 21 30 07/14/17 08:00 99.0 78 15 124/57 99 Mechanical Ventilator 35 07/14/17 08:00 79 07/14/17 08:00 35 07/14/17 07:16 76 16 35 07/14/17 07:00 79 16 107/49 99 Mechanical Ventilator 35 07/14/17 06:00 75 16 130/70 99 Mechanical Ventilator 35 07/14/17 05:30 75 15 35 07/14/17 05:00 74 16 133/74 99 Mechanical Ventilator 35 07/14/17 04:00 74 16 107/54 99 Mechanical Ventilator 35 07/14/17 04:00 35 07/14/17 04:00 73 07/14/17 04:00 98.4 74 16 107/54 99 Mechanical Ventilator 35 07/14/17 03:30 81 18 35 07/14/17 03:00 74 16 107/54 99 Mechanical Ventilator 35 07/14/17 02:00 73 15 103/49 99 Mechanical Ventilator 35 07/14/17 01:30 78 15 35 07/14/17 01:00 73 16 91/44 99 Mechanical Ventilator 35 07/14/17 00:00 35 07/14/17 00:00 98.6 80 16 103/49 98 Mechanical Ventilator 35 07/14/17 00:00 81 07/13/17 23:00 80 16 103/49 98 Mechanical Ventilator 35 07/13/17 22:49 76 16 35 07/13/17 22:00 76 16 106/74 98 Mechanical Ventilator 35 07/13/17 21:29 80 21 35 07/13/17 21:25 106/54 07/13/17 21:00 79 20 106/54 97 Mechanical Ventilator 35 Intake and Output 07/13/17 07/14/17 19:00 07:00 Intake Total 830 ml 790 ml Output Total 1430 ml 1290 ml Balance -600 ml -500 ml Intake Free Water 50 ml 130 ml IV Total 120 ml Tube Feeding 660 ml 660 ml Output Urine Total 1430 ml 1290 ml Laboratory Tests 07/14/17 03:15: White Blood Count 6.4, Red Blood Count 3.06L, Hemoglobin 9.0L, Hematocrit 27.9L , Mean Corpuscular Volume 91, Mean Corpuscular Hemoglobin 29.2, Mean Corpuscular Hemoglobin Concent 32.1, Red Cell Distribution Width 13.1, Platelet Count 478H, Mean Platelet Volume 7.3, Neutrophils (%) (Auto) 65.0, Lymphocytes ( %) (Auto) 17.2L, Monocytes (%) (Auto) 10.4H, Eosinophils (%) (Auto) 5.9H, Basophils (%) (Auto) 1.5, Sodium Level 142, Potassium Level 4.1, Chloride Level 106, Carbon Dioxide Level 32, Anion Gap 4L, Blood Urea Nitrogen 15, Creatinine 0.7, Estimat Glomerular Filtration Rate , Glucose Level 100, Uric Acid 2.8, Calcium Level 8.7, Phosphorus Level 3.4, Magnesium Level 2.0, Total Bilirubin 0.2, Gamma Glutamyl Transpeptidase 31, Aspartate Amino Transf (AST/SGOT) 12L, Alanine Aminotransferase (ALT/SGPT) 12, Alkaline Phosphatase 73, C-Reactive Protein, Quantitative 2.6H, Pro-B-Type Natriuretic Peptide 9678H, Total Protein 5.6L, Albumin 1.5L, Globulin 4.1, Albumin/Globulin Ratio 0.4L Height (Feet): 6 Weight (Pounds): 176 General Appearance: lethargic, confused Cardiovascular: normal rate Respiratory/Chest: lungs clear Sary Oakes MD Jul 14, 2017 20:35
--- NOTE | 2017-07-14 22:52 | General Progress Note ---
Assessment/Plan Assessment/Plan Assessment - OBS - dysphagia / GT - prostate CA - anemia - OB (+) --> need to discuss w/u - s/p Suprapubic catheter - DM - Leukocytosis Recommendations - GT feeding - follow residuals - Elevate HOB - monitor H&H - No famly per pt friend - [employer] to investigate - PPI - abx Subjective Allergies: Coded Allergies: No Known Allergies (Verified , 09/26/12) Subjective above noted d/w RN tolerating feeds non communicative Objective Last 24 Hour Vital Signs Date Time Temp Pulse Resp B/P (MAP) Pulse Ox O2 Delivery O2 Flow Rate FiO2 07/14/17 22:00 69 24 111/53 96 Mechanical Ventilator 35 07/14/17 21:31 114/98 07/14/17 21:00 85 24 114/98 96 Mechanical Ventilator 35 07/14/17 20:31 84 21 30 07/14/17 20:00 83 07/14/17 20:00 99.0 82 24 114/51 97 Mechanical Ventilator 35 07/14/17 19:33 85 21 30 07/14/17 19:00 97.8 84 22 96/47 94 Mechanical Ventilator 35 07/14/17 18:00 99 24 139/70 96 Mechanical Ventilator 30 07/14/17 17:15 97 31 30 07/14/17 17:00 35 07/14/17 17:00 88 23 111/75 96 Mechanical Ventilator 30 07/14/17 16:00 35 07/14/17 16:00 75 07/14/17 16:00 78 16 101/46 97 Mechanical Ventilator 35 07/14/17 15:25 76 21 30 07/14/17 15:00 97.8 76 16 104/48 97 Mechanical Ventilator 35 07/14/17 14:00 76 17 110/68 98 Mechanical Ventilator 35 07/14/17 13:25 90 20 30 07/14/17 13:00 77 16 118/52 98 Mechanical Ventilator 35 07/14/17 13:00 74 15 118/52 98 Mechanical Ventilator 35 07/14/17 12:00 74 07/14/17 12:00 35 07/14/17 12:00 98.9 78 15 115/50 99 Mechanical Ventilator 35 07/14/17 11:27 95 24 30 07/14/17 11:00 87 15 132/78 98 Mechanical Ventilator 35 07/14/17 10:00 82 15 111/53 99 Mechanical Ventilator 35 07/14/17 09:00 74 15 91/44 99 Mechanical Ventilator 35 07/14/17 08:55 89 21 30 07/14/17 08:00 99.0 78 15 124/57 99 Mechanical Ventilator 35 07/14/17 08:00 79 07/14/17 08:00 35 07/14/17 07:16 76 16 35 07/14/17 07:00 79 16 107/49 99 Mechanical Ventilator 35 07/14/17 06:00 75 16 130/70 99 Mechanical Ventilator 35 07/14/17 05:30 75 15 35 07/14/17 05:00 74 16 133/74 99 Mechanical Ventilator 35 07/14/17 04:00 74 16 107/54 99 Mechanical Ventilator 35 07/14/17 04:00 35 07/14/17 04:00 73 07/14/17 04:00 98.4 74 16 107/54 99 Mechanical Ventilator 35 07/14/17 03:30 81 18 35 07/14/17 03:00 74 16 107/54 99 Mechanical Ventilator 35 07/14/17 02:00 73 15 103/49 99 Mechanical Ventilator 35 07/14/17 01:30 78 15 35 07/14/17 01:00 73 16 91/44 99 Mechanical Ventilator 35 07/14/17 00:00 35 07/14/17 00:00 98.6 80 16 103/49 98 Mechanical Ventilator 35 07/14/17 00:00 81 07/13/17 23:00 80 16 103/49 98 Mechanical Ventilator 35 Intake and Output 07/13/17 07/14/17 19:00 07:00 Intake Total 830 ml 790 ml Output Total 1430 ml 1290 ml Balance -600 ml -500 ml Intake Free Water 50 ml 130 ml IV Total 120 ml Tube Feeding 660 ml 660 ml Output Urine Total 1430 ml 1290 ml Laboratory Tests 07/14/17 03:15: White Blood Count 6.4, Red Blood Count 3.06L, Hemoglobin 9.0L, Hematocrit 27.9L , Mean Corpuscular Volume 91, Mean Corpuscular Hemoglobin 29.2, Mean Corpuscular Hemoglobin Concent 32.1, Red Cell Distribution Width 13.1, Platelet Count 478H, Mean Platelet Volume 7.3, Neutrophils (%) (Auto) 65.0, Lymphocytes ( %) (Auto) 17.2L, Monocytes (%) (Auto) 10.4H, Eosinophils (%) (Auto) 5.9H, Basophils (%) (Auto) 1.5, Sodium Level 142, Potassium Level 4.1, Chloride Level 106, Carbon Dioxide Level 32, Anion Gap 4L, Blood Urea Nitrogen 15, Creatinine 0.7, Estimat Glomerular Filtration Rate , Glucose Level 100, Uric Acid 2.8, Calcium Level 8.7, Phosphorus Level 3.4, Magnesium Level 2.0, Total Bilirubin 0.2, Gamma Glutamyl Transpeptidase 31, Aspartate Amino Transf (AST/SGOT) 12L, Alanine Aminotransferase (ALT/SGPT) 12, Alkaline Phosphatase 73, C-Reactive Protein, Quantitative 2.6H, Pro-B-Type Natriuretic Peptide 9678H, Total Protein 5.6L, Albumin 1.5L, Globulin 4.1, Albumin/Globulin Ratio 0.4L Height (Feet): 6 Weight (Pounds): 176 Objective Eldely WM NCAT, (+) ETT supple, (+ ) IJ catheter CTA RR soft flat, (+) GT, (+) SP catheter no edema OBS CURTIS GARCIA Jul 14, 2017 22:52
--- NOTE | 2017-07-14 23:41 | Cardiology Progress Note ---
Assessment/Plan Assessment/Plan 1. Septic shock resolved, due to underlying pneumonia. 2. Sinus tachycardia,resolved, likely due to hypoxemia/sepsis/hypovolemia. 3. Respiratory failure, ?ARDS, awaiting bio-ethics evaluation before trach is evaluated. 4. History of cerebrovascular accident. Subjective Subjective Sinus rhythm at 80. No cardiac events. Objective Last 24 Hour Vital Signs Date Time Temp Pulse Resp B/P (MAP) Pulse Ox O2 Delivery O2 Flow Rate FiO2 07/14/17 23:11 77 23 30 07/14/17 23:00 80 24 121/56 100 Mechanical Ventilator 35 07/14/17 22:00 69 24 111/53 96 Mechanical Ventilator 35 07/14/17 21:31 114/98 07/14/17 21:00 85 24 114/98 96 Mechanical Ventilator 35 07/14/17 20:31 84 21 30 07/14/17 20:00 83 07/14/17 20:00 99.0 82 24 114/51 97 Mechanical Ventilator 35 07/14/17 19:33 85 21 30 07/14/17 19:00 97.8 84 22 96/47 94 Mechanical Ventilator 35 07/14/17 18:00 99 24 139/70 96 Mechanical Ventilator 30 07/14/17 17:15 97 31 30 07/14/17 17:00 35 07/14/17 17:00 88 23 111/75 96 Mechanical Ventilator 30 07/14/17 16:00 35 07/14/17 16:00 75 07/14/17 16:00 78 16 101/46 97 Mechanical Ventilator 35 07/14/17 15:25 76 21 30 07/14/17 15:00 97.8 76 16 104/48 97 Mechanical Ventilator 35 07/14/17 14:00 76 17 110/68 98 Mechanical Ventilator 35 07/14/17 13:25 90 20 30 07/14/17 13:00 77 16 118/52 98 Mechanical Ventilator 35 07/14/17 13:00 74 15 118/52 98 Mechanical Ventilator 35 07/14/17 12:00 74 07/14/17 12:00 35 07/14/17 12:00 98.9 78 15 115/50 99 Mechanical Ventilator 35 07/14/17 11:27 95 24 30 07/14/17 11:00 87 15 132/78 98 Mechanical Ventilator 35 07/14/17 10:00 82 15 111/53 99 Mechanical Ventilator 35 07/14/17 09:00 74 15 91/44 99 Mechanical Ventilator 35 07/14/17 08:55 89 21 30 07/14/17 08:00 99.0 78 15 124/57 99 Mechanical Ventilator 35 07/14/17 08:00 79 07/14/17 08:00 35 07/14/17 07:16 76 16 35 07/14/17 07:00 79 16 107/49 99 Mechanical Ventilator 35 07/14/17 06:00 75 16 130/70 99 Mechanical Ventilator 35 07/14/17 05:30 75 15 35 07/14/17 05:00 74 16 133/74 99 Mechanical Ventilator 35 07/14/17 04:00 74 16 107/54 99 Mechanical Ventilator 35 07/14/17 04:00 35 07/14/17 04:00 73 07/14/17 04:00 98.4 74 16 107/54 99 Mechanical Ventilator 35 07/14/17 03:30 81 18 35 07/14/17 03:00 74 16 107/54 99 Mechanical Ventilator 35 07/14/17 02:00 73 15 103/49 99 Mechanical Ventilator 35 07/14/17 01:30 78 15 35 07/14/17 01:00 73 16 91/44 99 Mechanical Ventilator 35 07/14/17 00:00 35 07/14/17 00:00 98.6 80 16 103/49 98 Mechanical Ventilator 35 07/14/17 00:00 81 Intake and Output 07/13/17 07/14/17 19:00 07:00 Intake Total 830 ml 790 ml Output Total 1430 ml 1290 ml Balance -600 ml -500 ml Intake Free Water 50 ml 130 ml IV Total 120 ml Tube Feeding 660 ml 660 ml Output Urine Total 1430 ml 1290 ml 2D Echo: LVEF 40-45%, Apical WMA, RVSP 33mmHg, Mild AR/MR, Grade I LVDD, Large L PE Laboratory Tests Test 07/14/17 03:15 White Blood Count 6.4 K/UL (4.8-10.8) Red Blood Count 3.06 M/UL (4.70-6.10) L Hemoglobin 9.0 G/DL (14.2-18.0) L Hematocrit 27.9 % (42.0-52.0) L Mean Corpuscular Volume 91 FL (80-99) Mean Corpuscular Hemoglobin 29.2 PG (27.0-31.0) Mean Corpuscular Hemoglobin Concent 32.1 G/DL (32.0-36.0) Red Cell Distribution Width 13.1 % (11.6-14.8) Platelet Count 478 K/UL (150-450) H Mean Platelet Volume 7.3 FL (6.5-10.1) Neutrophils (%) (Auto) 65.0 % (45.0-75.0) Lymphocytes (%) (Auto) 17.2 % (20.0-45.0) L Monocytes (%) (Auto) 10.4 % (1.0-10.0) H Eosinophils (%) (Auto) 5.9 % (0.0-3.0) H Basophils (%) (Auto) 1.5 % (0.0-2.0) Sodium Level 142 MMOL/L (136-145) Potassium Level 4.1 MMOL/L (3.5-5.1) Chloride Level 106 MMOL/L (98-107) Carbon Dioxide Level 32 MMOL/L (21-32) Anion Gap 4 mmol/L (5-15) L Blood Urea Nitrogen 15 mg/dL (7-18) Creatinine 0.7 MG/DL (0.55-1.30) Estimat Glomerular Filtration Rate mL/min (>60) Glucose Level 100 MG/DL (74-106) Uric Acid 2.8 MG/DL (2.6-7.2) Calcium Level 8.7 MG/DL (8.5-10.1) Phosphorus Level 3.4 MG/DL (2.5-4.9) Magnesium Level 2.0 MG/DL (1.8-2.4) Total Bilirubin 0.2 MG/DL (0.2-1.0) Gamma Glutamyl Transpeptidase 31 U/L (5-85) Aspartate Amino Transf (AST/SGOT) 12 U/L (15-37) L Alanine Aminotransferase (ALT/SGPT) 12 U/L (12-78) Alkaline Phosphatase 73 U/L (46-116) C-Reactive Protein, Quantitative 2.6 mg/dL (0.00-0.90) H Pro-B-Type Natriuretic Peptide 9678 pg/mL (0-125) H Total Protein 5.6 G/DL (6.4-8.2) L Albumin 1.5 G/DL (3.4-5.0) L Globulin 4.1 g/dL Albumin/Globulin Ratio 0.4 (1.0-2.7) L Objective GENERAL: The patient is a chronically ill appearing, 76-year-old gentleman, intubated. HEENT: Atraumatic and normocephalic. ENT, pupils are equal, round, and reactive to light and accommodation. Bitemporal wasting. NECK: JVP cannot be assessed due to positive inspiratory pressure. CVS: Normal S1 and S2. Tachycardic. I do not appreciate any murmur, gallop, or rub at this time. LUNGS: Bilateral rhonchi, right greater than left. ABDOMEN: Soft, nontender, and nondistended. Presence of a G-tube. Positive bowel sounds. EXTREMITIES: There is no evidence of edema, clubbing, or cyanosis. FRANCISCO SPAIN Jul 14, 2017 23:41
[2017-07-15] VITALS (23 sets, daily range): BP systolic 96–146; BP diastolic 45–84
[2017-07-15 05:57] LABS: BASOPHILS % (AUTO) 1.9 % (0.0-2.0); EOSINOPHILS % (AUTO) 5.3 % (0.0-3.0); LYMPHOCYTES % (AUTO) 16.4 % (20.0-45.0); MEAN CORPUSCULAR HEMOGLOBIN 29.5 PG (27.0-31.0); MEAN CORPUSCULAR HGB CONC 32.3 G/DL (32.0-36.0); MEAN CORPUSCULAR VOLUME 91 FL (80-99); MEAN PLATELET VOLUME 7.3 FL (6.5-10.1); MONOCYTES % (AUTO) 13.2 % (1.0-10.0); NEUTROPHILS % (AUTO) 63.2 % (45.0-75.0); PLATELET COUNT 519 K/UL (150-450); RED BLOOD COUNT 3.51 M/UL (4.70-6.10); RED CELL DISTRIBUTION WIDTH 13.1 % (11.6-14.8); WHITE BLOOD COUNT 6.1 K/UL (4.8-10.8)
[2017-07-15] MEDS: NovoLOG Insulin Flexpen SUBQ SCH ×5 (06:00→23:53)
[2017-07-15 06:26] LABS: ALANINE AMINOTRANSFERASE 18 U/L (12-78); ALBUMIN/GLOBULIN RATIO 0.4 (1.0-2.7); ANION GAP 4 mmol/L (5-15); ASPARTATE AMINO TRANSFERASE 20 U/L (15-37); CALCIUM 9.1 MG/DL (8.5-10.1); CARBON DIOXIDE 33 MMOL/L (21-32); CHLORIDE 106 MMOL/L (98-107); CREATININE 0.7 MG/DL (0.55-1.30); POTASSIUM 4.4 MMOL/L (3.5-5.1); SODIUM 142 MMOL/L (136-145); TOTAL PROTEIN 6.3 G/DL (6.4-8.2)
--- NOTE | 2017-07-15 06:52 | General Progress Note ---
Assessment/Plan Problem List: (1) Diabetes mellitus ICD Codes: E11.9 - Type 2 diabetes mellitus without complications SNOMED: 55159553 (2) ATN (acute tubular necrosis) ICD Codes: N17.0 - Acute kidney failure with tubular necrosis SNOMED: 89316818 (3) G tube feedings ICD Codes: Z93.1 - Gastrostomy status SNOMED: 983226274, 339098370 (4) Dementia ICD Codes: F03.90 - Unspecified dementia without behavioral disturbance SNOMED: 89226191 (5) Respiratory distress ICD Codes: R06.03 - Acute respiratory distress SNOMED: 275994733 (6) Suprapubic catheter ICD Codes: Z93.59 - Other cystostomy status SNOMED: 338913932, 287524722 Assessment/Plan continue Levemir 10 units bid continue Novolog sliding scale Subjective ROS Limited/Unobtainable: Yes Allergies: Coded Allergies: No Known Allergies (Verified , 09/26/12) Subjective events noted interval notes reviewed Objective Last 24 Hour Vital Signs Date Time Temp Pulse Resp B/P (MAP) Pulse Ox O2 Delivery O2 Flow Rate FiO2 07/15/17 06:00 80 16 138/70 100 Mechanical Ventilator 30 07/15/17 05:09 77 19 30 07/15/17 05:00 72 16 138/70 100 Mechanical Ventilator 30 07/15/17 04:00 30 07/15/17 04:00 98.1 80 21 133/59 97 Mechanical Ventilator 30 07/15/17 04:00 79 07/15/17 03:00 82 17 146/83 97 Mechanical Ventilator 30 07/15/17 02:47 68 14 30 07/15/17 02:00 72 17 111/55 100 Mechanical Ventilator 35 07/15/17 01:22 70 15 30 07/15/17 01:00 70 17 121/57 100 Mechanical Ventilator 35 07/15/17 00:00 89 07/15/17 00:00 30 07/15/17 00:00 98.3 72 17 105/50 100 Mechanical Ventilator 30 07/14/17 23:11 77 23 30 07/14/17 23:00 80 24 121/56 100 Mechanical Ventilator 35 07/14/17 22:00 69 24 111/53 96 Mechanical Ventilator 35 07/14/17 21:31 114/98 07/14/17 21:00 85 24 114/98 96 Mechanical Ventilator 35 07/14/17 20:31 84 21 30 07/14/17 20:00 83 07/14/17 20:00 99.0 82 24 114/51 97 Mechanical Ventilator 35 07/14/17 19:33 85 21 30 07/14/17 19:00 97.8 84 22 96/47 94 Mechanical Ventilator 35 07/14/17 18:00 99 24 139/70 96 Mechanical Ventilator 30 07/14/17 17:15 97 31 30 07/14/17 17:00 35 07/14/17 17:00 88 23 111/75 96 Mechanical Ventilator 30 07/14/17 16:00 35 07/14/17 16:00 75 07/14/17 16:00 78 16 101/46 97 Mechanical Ventilator 35 07/14/17 15:25 76 21 30 07/14/17 15:00 97.8 76 16 104/48 97 Mechanical Ventilator 35 07/14/17 14:00 76 17 110/68 98 Mechanical Ventilator 35 07/14/17 13:25 90 20 30 07/14/17 13:00 77 16 118/52 98 Mechanical Ventilator 35 07/14/17 13:00 74 15 118/52 98 Mechanical Ventilator 35 07/14/17 12:00 74 07/14/17 12:00 35 07/14/17 12:00 98.9 78 15 115/50 99 Mechanical Ventilator 35 07/14/17 11:27 95 24 30 07/14/17 11:00 87 15 132/78 98 Mechanical Ventilator 35 07/14/17 10:00 82 15 111/53 99 Mechanical Ventilator 35 07/14/17 09:00 74 15 91/44 99 Mechanical Ventilator 35 07/14/17 08:55 89 21 30 07/14/17 08:00 99.0 78 15 124/57 99 Mechanical Ventilator 35 07/14/17 08:00 79 07/14/17 08:00 35 07/14/17 07:16 76 16 35 07/14/17 07:00 79 16 107/49 99 Mechanical Ventilator 35 Intake and Output 07/14/17 07/15/17 19:00 07:00 Intake Total 660 ml 605 ml Output Total 1560 ml 1850 ml Balance -900 ml -1245 ml Tube Feeding 660 ml 605 ml Output Urine Total 1560 ml 1850 ml Laboratory Tests 07/15/17 05:35: White Blood Count 6.1, Red Blood Count 3.51L, Hemoglobin 10.3L, Hematocrit 32.0L , Mean Corpuscular Volume 91, Mean Corpuscular Hemoglobin 29.5, Mean Corpuscular Hemoglobin Concent 32.3, Red Cell Distribution Width 13.1, Platelet Count 519H, Mean Platelet Volume 7.3, Neutrophils (%) (Auto) 63.2, Lymphocytes ( %) (Auto) 16.4L, Monocytes (%) (Auto) 13.2H, Eosinophils (%) (Auto) 5.3H, Basophils (%) (Auto) 1.9, Sodium Level 142, Potassium Level 4.4, Chloride Level 106, Carbon Dioxide Level 33H, Anion Gap 4L, Blood Urea Nitrogen 16, Creatinine 0.7, Estimat Glomerular Filtration Rate , Glucose Level 103, Calcium Level 9.1, Total Bilirubin 0.2, Aspartate Amino Transf (AST/SGOT) 20, Alanine Aminotransferase (ALT/SGPT) 18, Alkaline Phosphatase 76, Total Protein 6.3L, Albumin 1.7L, Globulin 4.6, Albumin/Globulin Ratio 0.4L Height (Feet): 6 Weight (Pounds): 176 General Appearance: moderate distress EENT: pale conjunctivae Neck: normal alignment Cardiovascular: normal rate Respiratory/Chest: decreased breath sounds Abdomen: normal bowel sounds Objective Current Medications Medications (Trade) Dose Ordered Sig/Matt Route PRN Reason Start Time Stop Time Status Last Admin Dose Admin Acetaminophen (Tylenol) 650 mg Q4H PRN GT Mild Pain (1-3) 07/02/17 19:00 08/01/17 18:59 07/05/17 09:12 Aspirin (ASA) 81 mg DAILY GT 07/03/17 09:00 08/02/17 08:59 07/13/17 08:41 Chlorhexidine Gluconate (Mari-Hex 2%) 1 applic DAILY@1999 TOPIC 07/03/17 20:00 08/02/17 19:59 07/14/17 19:41 Dextrose (Dextrose 50%) STAT PRN IV Hypoglycemia 07/02/17 19:00 08/01/17 18:59 07/11/17 23:43 Enoxaparin Sodium (Lovenox) 80 mg Q12HR SUBQ 07/09/17 21:00 08/08/17 20:59 07/14/17 20:59 Insulin Aspart (NovoLOG) Q6HR SUBQ 07/04/17 00:00 08/01/17 20:59 07/14/17 17:35 Insulin Detemir (Levemir) 10 units BID SUBQ 07/10/17 09:00 08/09/17 08:59 07/14/17 17:34 Midodrine (Pro-Amatine) 10 mg THREE TIMES A DAY GT 07/11/17 13:00 08/10/17 12:59 07/14/17 17:29 Norepinephrine Bitartrate 4 mg/ Dextrose 250 ml @ 0 mls/hr Q24H IV 07/02/17 21:31 08/01/17 21:30 07/05/17 10:12 Ondansetron HCl (Zofran) 4 mg Q6H PRN GT Nausea & Vomiting 07/02/17 19:00 08/01/17 18:59 Pantoprazole (Protonix) 40 mg DAILY IV 07/03/17 09:00 08/02/17 08:59 07/14/17 08:38 Vitamin A/Vitamin D (A & D Oint) 1 applic EVERY 12 HOURS TOPIC 07/04/17 21:00 08/03/17 20:59 07/14/17 21:00 Item Value Date Time Bedside Blood Glucose 109 mg/dl 07/15/17 0600 Bedside Blood Glucose 90 mg/dl 07/15/17 0000 Bedside Blood Glucose 120 mg/dl 07/14/17 1800 Bedside Blood Glucose 117 mg/dl 07/14/17 1200 Bedside Blood Glucose 123 mg/dl H 07/14/17 0848 Bedside Blood Glucose 90 mg/dl 07/14/17 0600 Bedside Blood Glucose 125 mg/dl H 07/14/17 0005 MARIA EUGENIA AUGUST Jul 15, 2017 06:52
--- NOTE | 2017-07-15 08:57 | Infectious Diseases Prog Note ---
Assessment/Plan Assessment/Plan A; Septic Shock resolved Complicated UTI with MRSA & pseudomonas s/p RX Pneumonia treated for 10 days CoANS in blood likely contamination Acute respiratory failure MRSA colonization P; observe off antibiotic Subjective ROS Limited/Unobtainable: Yes Neurologic: Reports: confusion, other - on restraint Allergies: Coded Allergies: No Known Allergies (Verified , 09/26/12) Objective Vital Signs Last 24 Hour Vital Signs Date Time Temp Pulse Resp B/P (MAP) Pulse Ox O2 Delivery O2 Flow Rate FiO2 07/15/17 08:00 30 07/15/17 08:00 84 07/15/17 08:00 99.3 84 20 140/84 99 Mechanical Ventilator 07/15/17 07:25 84 25 30 07/15/17 07:00 77 16 140/84 100 Mechanical Ventilator 30 07/15/17 06:00 80 16 138/70 100 Mechanical Ventilator 30 07/15/17 05:09 77 19 30 07/15/17 05:00 72 16 138/70 100 Mechanical Ventilator 30 07/15/17 04:00 30 07/15/17 04:00 98.1 80 21 133/59 97 Mechanical Ventilator 30 07/15/17 04:00 79 07/15/17 03:00 82 17 146/83 97 Mechanical Ventilator 30 07/15/17 02:47 68 14 30 07/15/17 02:00 72 17 111/55 100 Mechanical Ventilator 35 07/15/17 01:22 70 15 30 07/15/17 01:00 70 17 121/57 100 Mechanical Ventilator 35 07/15/17 00:00 89 07/15/17 00:00 30 07/15/17 00:00 98.3 72 17 105/50 100 Mechanical Ventilator 30 07/14/17 23:11 77 23 30 07/14/17 23:00 80 24 121/56 100 Mechanical Ventilator 35 07/14/17 22:00 69 24 111/53 96 Mechanical Ventilator 35 07/14/17 21:31 114/98 07/14/17 21:00 85 24 114/98 96 Mechanical Ventilator 35 07/14/17 20:31 84 21 30 07/14/17 20:00 83 07/14/17 20:00 99.0 82 24 114/51 97 Mechanical Ventilator 35 07/14/17 19:33 85 21 30 07/14/17 19:00 97.8 84 22 96/47 94 Mechanical Ventilator 35 07/14/17 18:00 99 24 139/70 96 Mechanical Ventilator 30 07/14/17 17:15 97 31 30 07/14/17 17:00 35 07/14/17 17:00 88 23 111/75 96 Mechanical Ventilator 30 07/14/17 16:00 35 07/14/17 16:00 75 07/14/17 16:00 78 16 101/46 97 Mechanical Ventilator 35 07/14/17 15:25 76 21 30 07/14/17 15:00 97.8 76 16 104/48 97 Mechanical Ventilator 35 07/14/17 14:00 76 17 110/68 98 Mechanical Ventilator 35 07/14/17 13:25 90 20 30 07/14/17 13:00 77 16 118/52 98 Mechanical Ventilator 35 07/14/17 13:00 74 15 118/52 98 Mechanical Ventilator 35 07/14/17 12:00 74 07/14/17 12:00 35 07/14/17 12:00 98.9 78 15 115/50 99 Mechanical Ventilator 35 07/14/17 11:27 95 24 30 07/14/17 11:00 87 15 132/78 98 Mechanical Ventilator 35 07/14/17 10:00 82 15 111/53 99 Mechanical Ventilator 35 07/14/17 09:00 74 15 91/44 99 Mechanical Ventilator 35 07/14/17 08:55 89 21 30 Height (Feet): 6 Weight (Pounds): 179 HEENT: other - orally intubated Respiratory/Chest: lungs clear, other - on ventilator Cardiovascular: normal rate Abdomen: soft, non tender Extremities: other - mild leg edema Neurologic/Psychiatric: disoriented Laboratory Tests Test 07/15/17 05:35 White Blood Count 6.1 K/UL (4.8-10.8) Red Blood Count 3.51 M/UL (4.70-6.10) L Hemoglobin 10.3 G/DL (14.2-18.0) L Hematocrit 32.0 % (42.0-52.0) L Mean Corpuscular Volume 91 FL (80-99) Mean Corpuscular Hemoglobin 29.5 PG (27.0-31.0) Mean Corpuscular Hemoglobin Concent 32.3 G/DL (32.0-36.0) Red Cell Distribution Width 13.1 % (11.6-14.8) Platelet Count 519 K/UL (150-450) H Mean Platelet Volume 7.3 FL (6.5-10.1) Neutrophils (%) (Auto) 63.2 % (45.0-75.0) Lymphocytes (%) (Auto) 16.4 % (20.0-45.0) L Monocytes (%) (Auto) 13.2 % (1.0-10.0) H Eosinophils (%) (Auto) 5.3 % (0.0-3.0) H Basophils (%) (Auto) 1.9 % (0.0-2.0) Sodium Level 142 MMOL/L (136-145) Potassium Level 4.4 MMOL/L (3.5-5.1) Chloride Level 106 MMOL/L (98-107) Carbon Dioxide Level 33 MMOL/L (21-32) H Anion Gap 4 mmol/L (5-15) L Blood Urea Nitrogen 16 mg/dL (7-18) Creatinine 0.7 MG/DL (0.55-1.30) Estimat Glomerular Filtration Rate mL/min (>60) Glucose Level 103 MG/DL (74-106) Calcium Level 9.1 MG/DL (8.5-10.1) Total Bilirubin 0.2 MG/DL (0.2-1.0) Aspartate Amino Transf (AST/SGOT) 20 U/L (15-37) Alanine Aminotransferase (ALT/SGPT) 18 U/L (12-78) Alkaline Phosphatase 76 U/L (46-116) Total Protein 6.3 G/DL (6.4-8.2) L Albumin 1.7 G/DL (3.4-5.0) L Globulin 4.6 g/dL Albumin/Globulin Ratio 0.4 (1.0-2.7) L Current Medications Medications (Trade) Dose Ordered Sig/Matt Route PRN Reason Start Time Stop Time Status Last Admin Dose Admin Acetaminophen (Tylenol) 650 mg Q4H PRN GT Mild Pain (1-3) 07/02/17 19:00 08/01/17 18:59 07/05/17 09:12 Aspirin (ASA) 81 mg DAILY GT 07/03/17 09:00 08/02/17 08:59 07/13/17 08:41 Chlorhexidine Gluconate (Mari-Hex 2%) 1 applic DAILY@2000 TOPIC 07/03/17 20:00 08/02/17 19:59 07/14/17 19:41 Dextrose (Dextrose 50%) STAT PRN IV Hypoglycemia 07/02/17 19:00 08/01/17 18:59 07/11/17 23:43 Enoxaparin Sodium (Lovenox) 80 mg Q12HR SUBQ 07/09/17 21:00 08/08/17 20:59 07/14/17 20:59 Insulin Aspart (NovoLOG) Q6HR SUBQ 07/04/17 00:00 08/01/17 20:59 07/14/17 17:35 Insulin Detemir (Levemir) 10 units BID SUBQ 07/10/17 09:00 08/09/17 08:59 07/14/17 17:34 Midodrine (Pro-Amatine) 10 mg THREE TIMES A DAY GT 07/11/17 13:00 08/10/17 12:59 07/14/17 17:29 Norepinephrine Bitartrate 4 mg/ Dextrose 250 ml @ 0 mls/hr Q24H IV 07/02/17 21:31 08/01/17 21:30 07/05/17 10:12 Ondansetron HCl (Zofran) 4 mg Q6H PRN GT Nausea & Vomiting 07/02/17 19:00 08/01/17 18:59 Pantoprazole (Protonix) 40 mg DAILY IV 07/03/17 09:00 08/02/17 08:59 07/14/17 08:38 Vitamin A/Vitamin D (A & D Oint) 1 applic EVERY 12 HOURS TOPIC 07/04/17 21:00 08/03/17 20:59 07/14/17 21:00 BREANNE CERVANTES Jul 15, 2017 08:57
[2017-07-15] MEDS: Midodrine 10mg tab GT SCH ×3 (09:00→17:36)
[2017-07-15] MEDS: Aspirin Baby 81mg GT SCH (09:14)
[2017-07-15] MEDS: Pantoprazole Inj IV SCH (09:14)
[2017-07-15] MEDS: Vitamin A&D Oint 2oz Tube TOPIC SCH ×2 (09:15→21:44)
[2017-07-15] MEDS: Enoxaparin 80mg Inj SUBQ SCH ×2 (09:21→21:46)
[2017-07-15] MEDS: Levemir Flexpen SUBQ SCH ×3 (09:21→17:56)
--- NOTE | 2017-07-15 11:29 | General Progress Note ---
Assessment/Plan Assessment/Plan Assessment - OBS - dysphagia / GT - prostate CA - anemia - OB (+) --> need to discuss w/u - s/p Suprapubic catheter - DM - Leukocytosis Recommendations - GT feeding - follow residuals - Elevate HOB - monitor H&H - No family per pt friend - [employer] to investigate - PPI - abx Subjective Allergies: Coded Allergies: No Known Allergies (Verified , 09/26/12) Subjective above noted d/w RN tolerating feeds non communicative bioethics MTG pending Objective Last 24 Hour Vital Signs Date Time Temp Pulse Resp B/P (MAP) Pulse Ox O2 Delivery O2 Flow Rate FiO2 07/15/17 11:17 84 22 30 07/15/17 11:00 88 16 136/74 100 Endotracheal Tube 07/15/17 10:00 99.3 94 20 128/72 100 Mechanical Ventilator 07/15/17 09:09 77 18 30 07/15/17 09:08 100 07/15/17 09:00 84 22 129/71 100 Mechanical Ventilator 07/15/17 08:00 30 07/15/17 08:00 84 07/15/17 08:00 99.3 84 20 140/84 99 Mechanical Ventilator 07/15/17 07:25 84 25 30 07/15/17 07:00 77 16 140/84 100 Mechanical Ventilator 30 07/15/17 06:00 80 16 138/70 100 Mechanical Ventilator 30 07/15/17 05:09 77 19 30 07/15/17 05:00 72 16 138/70 100 Mechanical Ventilator 30 07/15/17 04:00 30 07/15/17 04:00 98.1 80 21 133/59 97 Mechanical Ventilator 30 07/15/17 04:00 79 07/15/17 03:00 82 17 146/83 97 Mechanical Ventilator 30 07/15/17 02:47 68 14 30 07/15/17 02:00 72 17 111/55 100 Mechanical Ventilator 35 07/15/17 01:22 70 15 30 07/15/17 01:00 70 17 121/57 100 Mechanical Ventilator 35 07/15/17 00:00 89 07/15/17 00:00 30 07/15/17 00:00 98.3 72 17 105/50 100 Mechanical Ventilator 30 07/14/17 23:11 77 23 30 07/14/17 23:00 80 24 121/56 100 Mechanical Ventilator 35 07/14/17 22:00 69 24 111/53 96 Mechanical Ventilator 35 07/14/17 21:31 114/98 07/14/17 21:00 85 24 114/98 96 Mechanical Ventilator 35 07/14/17 20:31 84 21 30 07/14/17 20:00 83 07/14/17 20:00 99.0 82 24 114/51 97 Mechanical Ventilator 35 07/14/17 19:33 85 21 30 07/14/17 19:00 97.8 84 22 96/47 94 Mechanical Ventilator 35 07/14/17 18:00 99 24 139/70 96 Mechanical Ventilator 30 07/14/17 17:15 97 31 30 07/14/17 17:00 35 07/14/17 17:00 88 23 111/75 96 Mechanical Ventilator 30 07/14/17 16:00 35 07/14/17 16:00 75 07/14/17 16:00 78 16 101/46 97 Mechanical Ventilator 35 07/14/17 15:25 76 21 30 07/14/17 15:00 97.8 76 16 104/48 97 Mechanical Ventilator 35 07/14/17 14:00 76 17 110/68 98 Mechanical Ventilator 35 07/14/17 13:25 90 20 30 07/14/17 13:00 77 16 118/52 98 Mechanical Ventilator 35 07/14/17 13:00 74 15 118/52 98 Mechanical Ventilator 35 07/14/17 12:00 74 07/14/17 12:00 35 07/14/17 12:00 98.9 78 15 115/50 99 Mechanical Ventilator 35 Intake and Output 07/14/17 07/15/17 19:00 07:00 Intake Total 660 ml 660 ml Output Total 1560 ml 1975 ml Balance -900 ml -1315 ml Tube Feeding 660 ml 660 ml Output Urine Total 1560 ml 1975 ml Laboratory Tests 07/15/17 05:35: White Blood Count 6.1, Red Blood Count 3.51L, Hemoglobin 10.3L, Hematocrit 32.0L , Mean Corpuscular Volume 91, Mean Corpuscular Hemoglobin 29.5, Mean Corpuscular Hemoglobin Concent 32.3, Red Cell Distribution Width 13.1, Platelet Count 519H, Mean Platelet Volume 7.3, Neutrophils (%) (Auto) 63.2, Lymphocytes ( %) (Auto) 16.4L, Monocytes (%) (Auto) 13.2H, Eosinophils (%) (Auto) 5.3H, Basophils (%) (Auto) 1.9, Sodium Level 142, Potassium Level 4.4, Chloride Level 106, Carbon Dioxide Level 33H, Anion Gap 4L, Blood Urea Nitrogen 16, Creatinine 0.7, Estimat Glomerular Filtration Rate , Glucose Level 103, Calcium Level 9.1, Total Bilirubin 0.2, Aspartate Amino Transf (AST/SGOT) 20, Alanine Aminotransferase (ALT/SGPT) 18, Alkaline Phosphatase 76, Total Protein 6.3L, Albumin 1.7L, Globulin 4.6, Albumin/Globulin Ratio 0.4L Height (Feet): 6 Weight (Pounds): 179 Objective Eldely WM NCAT, (+) ETT supple, (+ ) IJ catheter CTA RR soft flat, (+) GT, (+) SP catheter no edema OBS CURTIS GARCIA Jul 15, 2017 11:29
--- NOTE | 2017-07-15 12:45 | Diagnostic Imaging Report ---
Indication: Dyspnea Technique: One view of the chest Comparison: 07/12/2017 Findings: Large bilateral pleural effusions persist, may be slightly improved. Bilateral interstitial and airspace edema persist, likewise possibly slightly improved. Stable satisfactory position of endotracheal tube Impression: Slightly improved but persistent and still extensive bilateral pleural effusions and bilateral infiltrates versus edema, over 3 days
--- NOTE | 2017-07-15 13:20 | General Progress Note ---
Progress Note Progress Note BIOETHICS CONSULT The Bioethics Committee met together with a former neighbor of the patient and her son. The patient is unrepresented and facing possible tracheostomy with no relative of [facility] or public guardian empowered to make the decision as to whether to proceed given his advanced age and dementia. His former neighbor states that despite being intubated he responded to her presence and name by opening his eyes. She states that despite his declining health " he would want to be here." Her son echoed this by saying "as long a there is a pupillary reflex there is someone there." It seems they are both uncomfortable with the idea of foregoing tracheostomy and withdrawing care. The Committee is in agreement that under the circumstances it is permissible to proceed with tracheostomy however the patient should be made DNR. Matthew Bazan M.D. MATTHEW BAZAN Jul 15, 2017 13:20
--- NOTE | 2017-07-15 14:05 | Nephrology Progress Note ---
Assessment/Plan Problem List: (1) Respiratory distress (2) Suprapubic catheter (3) Septic shock (4) Electrolyte abnormality Assessment HypoKalemia- resolved Respiratory Failure on Vent Septic shock / Pneumonia / UTI Oliguria due to low BP Prostate cancer with suprapubic catheter. Severe Alzheimer dementia. Severe protein-calorie malnutrition. Anemia. Hyperglycemia. Plan Plan: per consultants FLuid challenge- Cortisol level wnl Antibiotics pulmonary support K supplements Per order Subjective ROS Limited/Unobtainable: Yes Objective Objective Last 24 Hour Vital Signs Date Time Temp Pulse Resp B/P (MAP) Pulse Ox O2 Delivery O2 Flow Rate FiO2 07/15/17 13:05 86 22 30 07/15/17 13:00 84 22 122/60 98 Mechanical Ventilator 07/15/17 12:00 30 07/15/17 12:00 99.0 89 20 108/66 99 Mechanical Ventilator 07/15/17 12:00 89 07/15/17 11:17 84 22 30 07/15/17 11:00 88 16 136/74 100 Endotracheal Tube 07/15/17 10:00 99.3 94 20 128/72 100 Mechanical Ventilator 07/15/17 09:09 77 18 30 07/15/17 09:08 100 07/15/17 09:00 84 22 129/71 100 Mechanical Ventilator 07/15/17 08:00 30 07/15/17 08:00 84 07/15/17 08:00 99.3 84 20 140/84 99 Mechanical Ventilator 07/15/17 07:25 84 25 30 07/15/17 07:00 77 16 140/84 100 Mechanical Ventilator 30 07/15/17 06:00 80 16 138/70 100 Mechanical Ventilator 30 07/15/17 05:09 77 19 30 07/15/17 05:00 72 16 138/70 100 Mechanical Ventilator 30 07/15/17 04:00 30 07/15/17 04:00 98.1 80 21 133/59 97 Mechanical Ventilator 30 07/15/17 04:00 79 07/15/17 03:00 82 17 146/83 97 Mechanical Ventilator 30 07/15/17 02:47 68 14 30 07/15/17 02:00 72 17 111/55 100 Mechanical Ventilator 35 07/15/17 01:22 70 15 30 07/15/17 01:00 70 17 121/57 100 Mechanical Ventilator 35 07/15/17 00:00 89 07/15/17 00:00 30 07/15/17 00:00 98.3 72 17 105/50 100 Mechanical Ventilator 30 07/14/17 23:11 77 23 30 07/14/17 23:00 80 24 121/56 100 Mechanical Ventilator 35 07/14/17 22:00 69 24 111/53 96 Mechanical Ventilator 35 07/14/17 21:31 114/98 07/14/17 21:00 85 24 114/98 96 Mechanical Ventilator 35 07/14/17 20:31 84 21 30 07/14/17 20:00 83 07/14/17 20:00 99.0 82 24 114/51 97 Mechanical Ventilator 35 07/14/17 19:33 85 21 30 07/14/17 19:00 97.8 84 22 96/47 94 Mechanical Ventilator 35 07/14/17 18:00 99 24 139/70 96 Mechanical Ventilator 30 07/14/17 17:15 97 31 30 07/14/17 17:00 35 07/14/17 17:00 88 23 111/75 96 Mechanical Ventilator 30 07/14/17 16:00 35 07/14/17 16:00 75 07/14/17 16:00 78 16 101/46 97 Mechanical Ventilator 35 07/14/17 15:25 76 21 30 07/14/17 15:00 97.8 76 16 104/48 97 Mechanical Ventilator 35 Intake and Output 07/14/17 07/15/17 19:00 07:00 Intake Total 660 ml 660 ml Output Total 1560 ml 1975 ml Balance -900 ml -1315 ml Tube Feeding 660 ml 660 ml Output Urine Total 1560 ml 1975 ml Laboratory Tests 07/15/17 05:35: White Blood Count 6.1, Red Blood Count 3.51L, Hemoglobin 10.3L, Hematocrit 32.0L , Mean Corpuscular Volume 91, Mean Corpuscular Hemoglobin 29.5, Mean Corpuscular Hemoglobin Concent 32.3, Red Cell Distribution Width 13.1, Platelet Count 519H, Mean Platelet Volume 7.3, Neutrophils (%) (Auto) 63.2, Lymphocytes ( %) (Auto) 16.4L, Monocytes (%) (Auto) 13.2H, Eosinophils (%) (Auto) 5.3H, Basophils (%) (Auto) 1.9, Sodium Level 142, Potassium Level 4.4, Chloride Level 106, Carbon Dioxide Level 33H, Anion Gap 4L, Blood Urea Nitrogen 16, Creatinine 0.7, Estimat Glomerular Filtration Rate , Glucose Level 103, Calcium Level 9.1, Total Bilirubin 0.2, Aspartate Amino Transf (AST/SGOT) 20, Alanine Aminotransferase (ALT/SGPT) 18, Alkaline Phosphatase 76, Total Protein 6.3L, Albumin 1.7L, Globulin 4.6, Albumin/Globulin Ratio 0.4L Height (Feet): 6 Weight (Pounds): 179 General Appearance: no apparent distress Objective no other change FAITH SEARS Jul 15, 2017 14:05
[2017-07-15] MEDS ORDERED: NS 500ML ONE (15:51)
[2017-07-15] MEDS: Acetaminophen 650mg/20.3ml GT PRN (16:29)
--- NOTE | 2017-07-15 17:03 | Pulmonology Progress Note ---
Assessment/Plan Assessment/Plan 1. Respiratory failure. 2. Sepsis with shock. 3. Pneumonia. 4. Anuria, resolved 5. Prostate cancer with suprapubic catheter. 6. Severe Alzheimer dementia. 7. Severe protein-calorie malnutrition. 8. Anemia. 9. Possible acute myocardial infarction. 10. Azotemia. 11. Hyperglycemia. Bioethics approved trach and DNR However patient is now ready to extubate will extubate and notify Dr Monica avery per ID watch fluid status re CXR w edema prognosis guarded Subjective ROS Limited/Unobtainable: Yes Constitutional: Denies: fever Allergies: Coded Allergies: No Known Allergies (Verified , 09/26/12) Objective Last 24 Hour Vital Signs Date Time Temp Pulse Resp B/P (MAP) Pulse Ox O2 Delivery O2 Flow Rate FiO2 07/15/17 16:49 96 31 30 07/15/17 16:00 98.3 91 16 136/80 97 Mechanical Ventilator 07/15/17 16:00 30 07/15/17 16:00 81 07/15/17 15:15 87 25 30 07/15/17 15:00 82 16 130/48 98 Endotracheal Tube 07/15/17 14:00 84 20 130/48 98 Mechanical Ventilator 07/15/17 13:05 86 22 30 07/15/17 13:00 84 22 122/60 98 Mechanical Ventilator 07/15/17 12:00 30 07/15/17 12:00 99.0 89 20 108/66 99 Mechanical Ventilator 07/15/17 12:00 89 07/15/17 11:17 84 22 30 07/15/17 11:00 88 16 136/74 100 Endotracheal Tube 07/15/17 10:00 99.3 94 20 128/72 100 Mechanical Ventilator 07/15/17 09:09 77 18 30 07/15/17 09:08 100 07/15/17 09:00 84 22 129/71 100 Mechanical Ventilator 07/15/17 08:00 30 07/15/17 08:00 84 07/15/17 08:00 99.3 84 20 140/84 99 Mechanical Ventilator 07/15/17 07:25 84 25 30 07/15/17 07:00 77 16 140/84 100 Mechanical Ventilator 30 07/15/17 06:00 80 16 138/70 100 Mechanical Ventilator 30 07/15/17 05:09 77 19 30 07/15/17 05:00 72 16 138/70 100 Mechanical Ventilator 30 07/15/17 04:00 30 07/15/17 04:00 98.1 80 21 133/59 97 Mechanical Ventilator 30 07/15/17 04:00 79 07/15/17 03:00 82 17 146/83 97 Mechanical Ventilator 30 07/15/17 02:47 68 14 30 07/15/17 02:00 72 17 111/55 100 Mechanical Ventilator 35 07/15/17 01:22 70 15 30 07/15/17 01:00 70 17 121/57 100 Mechanical Ventilator 35 07/15/17 00:00 89 07/15/17 00:00 30 07/15/17 00:00 98.3 72 17 105/50 100 Mechanical Ventilator 30 07/14/17 23:11 77 23 30 07/14/17 23:00 80 24 121/56 100 Mechanical Ventilator 35 07/14/17 22:00 69 24 111/53 96 Mechanical Ventilator 35 07/14/17 21:31 114/98 07/14/17 21:00 85 24 114/98 96 Mechanical Ventilator 35 07/14/17 20:31 84 21 30 07/14/17 20:00 83 07/14/17 20:00 99.0 82 24 114/51 97 Mechanical Ventilator 35 07/14/17 19:33 85 21 30 07/14/17 19:00 97.8 84 22 96/47 94 Mechanical Ventilator 35 07/14/17 18:00 99 24 139/70 96 Mechanical Ventilator 30 07/14/17 17:15 97 31 30 07/14/17 17:00 35 07/14/17 17:00 88 23 111/75 96 Mechanical Ventilator 30 Intake and Output 07/14/17 07/15/17 19:00 07:00 Intake Total 660 ml 660 ml Output Total 1560 ml 1975 ml Balance -900 ml -1315 ml Tube Feeding 660 ml 660 ml Output Urine Total 1560 ml 1975 ml Objective G tube, suprapubic cath General Appearance: no acute distress, cachetic HEENT: atraumatic Respiratory/Chest: lungs clear Cardiovascular: normal rate Laboratory Tests 07/15/17 05:35: White Blood Count 6.1, Red Blood Count 3.51L, Hemoglobin 10.3L, Hematocrit 32.0L , Mean Corpuscular Volume 91, Mean Corpuscular Hemoglobin 29.5, Mean Corpuscular Hemoglobin Concent 32.3, Red Cell Distribution Width 13.1, Platelet Count 519H, Mean Platelet Volume 7.3, Neutrophils (%) (Auto) 63.2, Lymphocytes ( %) (Auto) 16.4L, Monocytes (%) (Auto) 13.2H, Eosinophils (%) (Auto) 5.3H, Basophils (%) (Auto) 1.9, Sodium Level 142, Potassium Level 4.4, Chloride Level 106, Carbon Dioxide Level 33H, Anion Gap 4L, Blood Urea Nitrogen 16, Creatinine 0.7, Estimat Glomerular Filtration Rate , Glucose Level 103, Calcium Level 9.1, Total Bilirubin 0.2, Aspartate Amino Transf (AST/SGOT) 20, Alanine Aminotransferase (ALT/SGPT) 18, Alkaline Phosphatase 76, Total Protein 6.3L, Albumin 1.7L, Globulin 4.6, Albumin/Globulin Ratio 0.4L Current Medications Medications (Trade) Dose Ordered Sig/Matt Route PRN Reason Start Time Stop Time Status Last Admin Dose Admin Acetaminophen (Tylenol) 650 mg Q4H PRN GT Mild Pain (1-3) 07/02/17 19:00 08/01/17 18:59 07/15/17 16:29 Aspirin (ASA) 81 mg DAILY GT 07/03/17 09:00 08/02/17 08:59 07/15/17 09:14 Chlorhexidine Gluconate (Mari-Hex 2%) 1 applic DAILY@2000 TOPIC 07/03/17 20:00 08/02/17 19:59 07/14/17 19:41 Dextrose (Dextrose 50%) STAT PRN IV Hypoglycemia 07/02/17 19:00 08/01/17 18:59 07/11/17 23:43 Enoxaparin Sodium (Lovenox) 80 mg Q12HR SUBQ 07/09/17 21:00 08/08/17 20:59 07/15/17 09:21 Insulin Aspart (NovoLOG) Q6HR SUBQ 07/04/17 00:00 08/01/17 20:59 07/15/17 11:44 Insulin Detemir (Levemir) 10 units BID SUBQ 07/10/17 09:00 08/09/17 08:59 07/15/17 09:21 Midodrine (Pro-Amatine) 10 mg THREE TIMES A DAY GT 07/11/17 13:00 08/10/17 12:59 07/14/17 17:29 Norepinephrine Bitartrate 4 mg/ Dextrose 250 ml @ 0 mls/hr Q24H IV 07/02/17 21:31 08/01/17 21:30 07/05/17 10:12 Ondansetron HCl (Zofran) 4 mg Q6H PRN GT Nausea & Vomiting 07/02/17 19:00 08/01/17 18:59 Pantoprazole (Protonix) 40 mg DAILY IV 07/03/17 09:00 08/02/17 08:59 07/15/17 09:14 Vitamin A/Vitamin D (A & D Oint) 1 applic EVERY 12 HOURS TOPIC 07/04/17 21:00 08/03/17 20:59 07/15/17 09:15 SABAS KNOTT Jul 15, 2017 17:03
--- NOTE | 2017-07-15 17:20 | General Progress Note ---
Assessment/Plan Assessment/Plan ASSESSMENT AND RECOMMENDATIONS: 1. OB positive? rule out GI bleed. H/H stable, GI service following. 2. Prostate cancer, controlled at this time. Current PSA of 5.6. With suprapubic catheter 3. Leukocytosis, secondary to underlying infection, infiltrates noted.ID following. --> wbc count has normalized. Off abx 4. Anemia, rule out gastrointestinal bleed. Ferritin wnl. H/H stable at this time 5. Sepsis resolved 6. Respiratory failure. S/p intubation, Ready for extubation? Subjective Constitutional: Reports: weakness Hematologic/Lymphatic: Reports: anemia Allergies: Coded Allergies: No Known Allergies (Verified , 09/26/12) All Systems: reviewed and negative except above Subjective NAD Objective Last 24 Hour Vital Signs Date Time Temp Pulse Resp B/P (MAP) Pulse Ox O2 Delivery O2 Flow Rate FiO2 07/15/17 16:49 96 31 30 07/15/17 16:00 98.3 91 16 136/80 97 Mechanical Ventilator 07/15/17 16:00 30 07/15/17 16:00 81 07/15/17 15:15 87 25 30 07/15/17 15:00 82 16 130/48 98 Endotracheal Tube 07/15/17 14:00 84 20 130/48 98 Mechanical Ventilator 07/15/17 13:05 86 22 30 07/15/17 13:00 84 22 122/60 98 Mechanical Ventilator 07/15/17 12:00 30 07/15/17 12:00 99.0 89 20 108/66 99 Mechanical Ventilator 07/15/17 12:00 89 07/15/17 11:17 84 22 30 07/15/17 11:00 88 16 136/74 100 Endotracheal Tube 07/15/17 10:00 99.3 94 20 128/72 100 Mechanical Ventilator 07/15/17 09:09 77 18 30 07/15/17 09:08 100 07/15/17 09:00 84 22 129/71 100 Mechanical Ventilator 07/15/17 08:00 30 07/15/17 08:00 84 07/15/17 08:00 99.3 84 20 140/84 99 Mechanical Ventilator 07/15/17 07:25 84 25 30 07/15/17 07:00 77 16 140/84 100 Mechanical Ventilator 30 07/15/17 06:00 80 16 138/70 100 Mechanical Ventilator 30 07/15/17 05:09 77 19 30 07/15/17 05:00 72 16 138/70 100 Mechanical Ventilator 30 07/15/17 04:00 30 07/15/17 04:00 98.1 80 21 133/59 97 Mechanical Ventilator 30 07/15/17 04:00 79 07/15/17 03:00 82 17 146/83 97 Mechanical Ventilator 30 07/15/17 02:47 68 14 30 07/15/17 02:00 72 17 111/55 100 Mechanical Ventilator 35 07/15/17 01:22 70 15 30 07/15/17 01:00 70 17 121/57 100 Mechanical Ventilator 35 07/15/17 00:00 89 07/15/17 00:00 30 07/15/17 00:00 98.3 72 17 105/50 100 Mechanical Ventilator 30 07/14/17 23:11 77 23 30 07/14/17 23:00 80 24 121/56 100 Mechanical Ventilator 35 07/14/17 22:00 69 24 111/53 96 Mechanical Ventilator 35 07/14/17 21:31 114/98 07/14/17 21:00 85 24 114/98 96 Mechanical Ventilator 35 07/14/17 20:31 84 21 30 07/14/17 20:00 83 07/14/17 20:00 99.0 82 24 114/51 97 Mechanical Ventilator 35 07/14/17 19:33 85 21 30 07/14/17 19:00 97.8 84 22 96/47 94 Mechanical Ventilator 35 07/14/17 18:00 99 24 139/70 96 Mechanical Ventilator 30 Intake and Output 07/14/17 07/15/17 19:00 07:00 Intake Total 660 ml 660 ml Output Total 1560 ml 1975 ml Balance -900 ml -1315 ml Tube Feeding 660 ml 660 ml Output Urine Total 1560 ml 1975 ml Laboratory Tests 07/15/17 05:35: White Blood Count 6.1, Red Blood Count 3.51L, Hemoglobin 10.3L, Hematocrit 32.0L , Mean Corpuscular Volume 91, Mean Corpuscular Hemoglobin 29.5, Mean Corpuscular Hemoglobin Concent 32.3, Red Cell Distribution Width 13.1, Platelet Count 519H, Mean Platelet Volume 7.3, Neutrophils (%) (Auto) 63.2, Lymphocytes ( %) (Auto) 16.4L, Monocytes (%) (Auto) 13.2H, Eosinophils (%) (Auto) 5.3H, Basophils (%) (Auto) 1.9, Sodium Level 142, Potassium Level 4.4, Chloride Level 106, Carbon Dioxide Level 33H, Anion Gap 4L, Blood Urea Nitrogen 16, Creatinine 0.7, Estimat Glomerular Filtration Rate , Glucose Level 103, Calcium Level 9.1, Total Bilirubin 0.2, Aspartate Amino Transf (AST/SGOT) 20, Alanine Aminotransferase (ALT/SGPT) 18, Alkaline Phosphatase 76, Total Protein 6.3L, Albumin 1.7L, Globulin 4.6, Albumin/Globulin Ratio 0.4L Height (Feet): 6 Weight (Pounds): 179 General Appearance: no apparent distress EENT: normal ENT inspection Neck: normal alignment Cardiovascular: normal peripheral pulses Abdomen: non tender Skin: warm/dry Jose Luis Rendon Jul 15, 2017 17:20
[2017-07-15] MEDS: Dyna-Hex 2% Top Sol 2oz TOPIC SCH (20:16)
--- NOTE | 2017-07-15 21:11 | General Progress Note ---
Assessment/Plan Problem List: (1) COPD (chronic obstructive pulmonary disease) ICD Codes: J44.9 - Chronic obstructive pulmonary disease SNOMED: 68963959 (2) Suprapubic catheter ICD Codes: Z93.59 - Other cystostomy status SNOMED: 999060759, 546061579 (3) Catheter-associated urinary tract infection ICD Codes: T83.511A - Infection and inflammatory reaction due to indwelling urethral catheter, initial encounter; N39.0 - Urinary tract infection, site not specified SNOMED: 579013782 (4) Anemia ICD Codes: D64.9 - Anemia, unspecified SNOMED: 003630174 (5) Dementia ICD Codes: F03.90 - Unspecified dementia without behavioral disturbance SNOMED: 96663565 (6) Seizure ICD Codes: R56.9 - Unspecified convulsions SNOMED: 07257908 (7) Prostate cancer ICD Codes: C61 - Malignant neoplasm of prostate SNOMED: 401107047 (8) COPD (chronic obstructive pulmonary disease) ICD Codes: J44.9 - Chronic obstructive pulmonary disease, unspecified SNOMED: 78888214 (9) Respiratory distress ICD Codes: R06.03 - Acute respiratory distress SNOMED: 624907096 (10) Sepsis ICD Codes: A41.9 - Sepsis, unspecified organism SNOMED: 39707838 Status: progressing Assessment/Plan spoke w dr farris he is going to extubate the patient for now patient is full code so if need be will reintubate pna Subjective ROS Limited/Unobtainable: Yes Allergies: Coded Allergies: No Known Allergies (Verified , 09/26/12) Objective Last 24 Hour Vital Signs Date Time Temp Pulse Resp B/P (MAP) Pulse Ox O2 Delivery O2 Flow Rate FiO2 07/15/17 20:00 80 07/15/17 19:35 Nasal Cannula 3.0 32 07/15/17 19:35 99 Nasal Cannula 3.0 32 07/15/17 18:00 86 140/65 Nasal Cannula 3.0 07/15/17 17:55 88 22 07/15/17 17:00 85 19 124/77 97 07/15/17 16:59 98.3 07/15/17 16:49 96 31 30 07/15/17 16:00 98.3 91 16 136/80 97 Mechanical Ventilator 07/15/17 16:00 30 07/15/17 16:00 81 07/15/17 15:15 87 25 30 07/15/17 15:00 82 16 130/48 98 Endotracheal Tube 07/15/17 14:00 84 20 130/48 98 Mechanical Ventilator 07/15/17 13:05 86 22 30 07/15/17 13:00 84 22 122/60 98 Mechanical Ventilator 07/15/17 12:00 30 07/15/17 12:00 99.0 89 20 108/66 99 Mechanical Ventilator 07/15/17 12:00 89 07/15/17 11:17 84 22 30 07/15/17 11:00 88 16 136/74 100 Endotracheal Tube 07/15/17 10:00 99.3 94 20 128/72 100 Mechanical Ventilator 07/15/17 09:09 77 18 30 07/15/17 09:08 100 07/15/17 09:00 84 22 129/71 100 Mechanical Ventilator 07/15/17 08:00 30 07/15/17 08:00 84 07/15/17 08:00 99.3 84 20 140/84 99 Mechanical Ventilator 07/15/17 07:25 84 25 30 07/15/17 07:00 77 16 140/84 100 Mechanical Ventilator 30 07/15/17 06:00 80 16 138/70 100 Mechanical Ventilator 30 07/15/17 05:09 77 19 30 07/15/17 05:00 72 16 138/70 100 Mechanical Ventilator 30 07/15/17 04:00 30 07/15/17 04:00 98.1 80 21 133/59 97 Mechanical Ventilator 30 07/15/17 04:00 79 07/15/17 03:00 82 17 146/83 97 Mechanical Ventilator 30 07/15/17 02:47 68 14 30 07/15/17 02:00 72 17 111/55 100 Mechanical Ventilator 35 07/15/17 01:22 70 15 30 07/15/17 01:00 70 17 121/57 100 Mechanical Ventilator 35 07/15/17 00:00 89 07/15/17 00:00 30 07/15/17 00:00 98.3 72 17 105/50 100 Mechanical Ventilator 30 07/14/17 23:11 77 23 30 07/14/17 23:00 80 24 121/56 100 Mechanical Ventilator 35 07/14/17 22:00 69 24 111/53 96 Mechanical Ventilator 35 07/14/17 21:31 114/98 Intake and Output 07/14/17 07/15/17 19:00 07:00 Intake Total 660 ml 660 ml Output Total 1560 ml 1975 ml Balance -900 ml -1315 ml Tube Feeding 660 ml 660 ml Output Urine Total 1560 ml 1975 ml Laboratory Tests 07/15/17 05:35: White Blood Count 6.1, Red Blood Count 3.51L, Hemoglobin 10.3L, Hematocrit 32.0L , Mean Corpuscular Volume 91, Mean Corpuscular Hemoglobin 29.5, Mean Corpuscular Hemoglobin Concent 32.3, Red Cell Distribution Width 13.1, Platelet Count 519H, Mean Platelet Volume 7.3, Neutrophils (%) (Auto) 63.2, Lymphocytes ( %) (Auto) 16.4L, Monocytes (%) (Auto) 13.2H, Eosinophils (%) (Auto) 5.3H, Basophils (%) (Auto) 1.9, Sodium Level 142, Potassium Level 4.4, Chloride Level 106, Carbon Dioxide Level 33H, Anion Gap 4L, Blood Urea Nitrogen 16, Creatinine 0.7, Estimat Glomerular Filtration Rate , Glucose Level 103, Calcium Level 9.1, Total Bilirubin 0.2, Aspartate Amino Transf (AST/SGOT) 20, Alanine Aminotransferase (ALT/SGPT) 18, Alkaline Phosphatase 76, Total Protein 6.3L, Albumin 1.7L, Globulin 4.6, Albumin/Globulin Ratio 0.4L Height (Feet): 6 Weight (Pounds): 179 Sary Oakes MD Jul 15, 2017 21:11
[2017-07-16] VITALS (13 sets, daily range): BP systolic 108–167; BP diastolic 50–95
[2017-07-16] MEDS: NovoLOG Insulin Flexpen SUBQ SCH ×3 (05:37→18:32)
[2017-07-16 05:47] LABS: ALANINE AMINOTRANSFERASE 11 U/L (12-78); ALBUMIN/GLOBULIN RATIO 0.4 (1.0-2.7); ANION GAP 4 mmol/L (5-15); ASPARTATE AMINO TRANSFERASE 16 U/L (15-37); CALCIUM 8.3 MG/DL (8.5-10.1); CARBON DIOXIDE 31 MMOL/L (21-32); CHLORIDE 106 MMOL/L (98-107); CREATININE 0.7 MG/DL (0.55-1.30); POTASSIUM 4.9 MMOL/L (3.5-5.1); SODIUM 141 MMOL/L (136-145); TOTAL PROTEIN 6.6 G/DL (6.4-8.2)
[2017-07-16 06:10] LABS: BASOPHILS % (AUTO) 1.6 % (0.0-2.0); EOSINOPHILS % (AUTO) 6.8 % (0.0-3.0); LYMPHOCYTES % (AUTO) 18.7 % (20.0-45.0); MEAN CORPUSCULAR HEMOGLOBIN 29.4 PG (27.0-31.0); MEAN CORPUSCULAR HGB CONC 32.1 G/DL (32.0-36.0); MEAN CORPUSCULAR VOLUME 92 FL (80-99); MEAN PLATELET VOLUME 7.4 FL (6.5-10.1); MONOCYTES % (AUTO) 11.2 % (1.0-10.0); NEUTROPHILS % (AUTO) 61.8 % (45.0-75.0); PLATELET COUNT 514 K/UL (150-450); RED BLOOD COUNT 3.71 M/UL (4.70-6.10); RED CELL DISTRIBUTION WIDTH 13.4 % (11.6-14.8); WHITE BLOOD COUNT 6.4 K/UL (4.8-10.8)
--- NOTE | 2017-07-16 07:56 | General Progress Note ---
Assessment/Plan Problem List: (1) Diabetes mellitus ICD Codes: E11.9 - Type 2 diabetes mellitus without complications SNOMED: 53228637 (2) ATN (acute tubular necrosis) ICD Codes: N17.0 - Acute kidney failure with tubular necrosis SNOMED: 89726885 (3) G tube feedings ICD Codes: Z93.1 - Gastrostomy status SNOMED: 705535774, 473676586 (4) Dementia ICD Codes: F03.90 - Unspecified dementia without behavioral disturbance SNOMED: 39330879 (5) Respiratory distress ICD Codes: R06.03 - Acute respiratory distress SNOMED: 393477795 (6) Suprapubic catheter ICD Codes: Z93.59 - Other cystostomy status SNOMED: 017101988, 383392887 Assessment/Plan continue Levemir 10 units bid continue Novolog sliding scale Subjective ROS Limited/Unobtainable: Yes Allergies: Coded Allergies: No Known Allergies (Verified , 09/26/12) Subjective events noted interval notes reviewed Objective Last 24 Hour Vital Signs Date Time Temp Pulse Resp B/P (MAP) Pulse Ox O2 Delivery O2 Flow Rate FiO2 07/16/17 06:00 85 16 126/86 100 Nasal Cannula 2.0 07/16/17 05:00 76 15 123/67 100 Nasal Cannula 2.0 07/16/17 04:00 72 07/16/17 04:00 98.6 60 16 122/62 99 Nasal Cannula 2.0 07/16/17 03:00 69 15 108/50 100 Nasal Cannula 2.0 07/16/17 02:00 82 19 126/65 100 Nasal Cannula 2.0 07/16/17 01:00 83 16 167/95 99 Nasal Cannula 2.0 07/16/17 00:00 72 07/16/17 00:00 98.9 74 16 118/55 100 Nasal Cannula 2.0 07/15/17 23:00 70 16 119/56 99 Nasal Cannula 2.0 07/15/17 22:00 73 16 96/45 99 Nasal Cannula 2.0 07/15/17 21:31 100/45 07/15/17 21:00 75 15 96/45 99 Nasal Cannula 2.0 07/15/17 20:00 98.0 82 16 100/45 100 Nasal Cannula 2.0 07/15/17 20:00 80 07/15/17 19:35 Nasal Cannula 3.0 32 07/15/17 19:35 99 Nasal Cannula 3.0 32 07/15/17 18:00 86 140/65 Nasal Cannula 3.0 07/15/17 17:55 88 22 07/15/17 17:00 85 19 124/77 97 07/15/17 16:59 98.3 07/15/17 16:49 96 31 30 07/15/17 16:00 98.3 91 16 136/80 97 Mechanical Ventilator 07/15/17 16:00 30 07/15/17 16:00 81 07/15/17 15:15 87 25 30 07/15/17 15:00 82 16 130/48 98 Endotracheal Tube 07/15/17 14:00 84 20 130/48 98 Mechanical Ventilator 07/15/17 13:05 86 22 30 07/15/17 13:00 84 22 122/60 98 Mechanical Ventilator 07/15/17 12:00 30 07/15/17 12:00 99.0 89 20 108/66 99 Mechanical Ventilator 07/15/17 12:00 89 07/15/17 11:17 84 22 30 07/15/17 11:00 88 16 136/74 100 Endotracheal Tube 07/15/17 10:00 99.3 94 20 128/72 100 Mechanical Ventilator 07/15/17 09:09 77 18 30 07/15/17 09:08 100 07/15/17 09:00 84 22 129/71 100 Mechanical Ventilator 07/15/17 08:00 30 07/15/17 08:00 84 07/15/17 08:00 99.3 84 20 140/84 99 Mechanical Ventilator Intake and Output 07/15/17 07/16/17 19:00 07:00 Intake Total 800 ml 660 ml Output Total 2220 ml 1210 ml Balance -1420 ml -550 ml Intake Free Water 250 ml Tube Feeding 550 ml 660 ml Output Urine Total 2220 ml 1210 ml Laboratory Tests 07/16/17 04:10: White Blood Count 6.4, Red Blood Count 3.71L, Hemoglobin 10.9L, Hematocrit 34.0L , Mean Corpuscular Volume 92, Mean Corpuscular Hemoglobin 29.4, Mean Corpuscular Hemoglobin Concent 32.1, Red Cell Distribution Width 13.4, Platelet Count 514H, Mean Platelet Volume 7.4, Neutrophils (%) (Auto) 61.8, Lymphocytes ( %) (Auto) 18.7L, Monocytes (%) (Auto) 11.2H, Eosinophils (%) (Auto) 6.8H, Basophils (%) (Auto) 1.6, Sodium Level 141, Potassium Level 4.9, Chloride Level 106, Carbon Dioxide Level 31, Anion Gap 4L, Blood Urea Nitrogen 18, Creatinine 0.7, Estimat Glomerular Filtration Rate , Glucose Level 55L, Calcium Level 8.3L , Total Bilirubin 0.2, Aspartate Amino Transf (AST/SGOT) 16, Alanine Aminotransferase (ALT/SGPT) 11L, Alkaline Phosphatase 80, Total Protein 6.6, Albumin 1.9L, Globulin 4.7, Albumin/Globulin Ratio 0.4L Height (Feet): 6 Weight (Pounds): 171 General Appearance: no apparent distress Neck: normal alignment Cardiovascular: normal rate Respiratory/Chest: decreased breath sounds Abdomen: normal bowel sounds Objective Current Medications Medications (Trade) Dose Ordered Sig/Matt Route PRN Reason Start Time Stop Time Status Last Admin Dose Admin Acetaminophen (Tylenol) 650 mg Q4H PRN GT Mild Pain (1-3) 07/02/17 19:00 08/01/17 18:59 07/15/17 16:29 Aspirin (ASA) 81 mg DAILY GT 07/03/17 09:00 08/02/17 08:59 07/15/17 09:14 Chlorhexidine Gluconate (Mari-Hex 2%) 1 applic DAILY@2000 TOPIC 07/03/17 20:00 08/02/17 19:59 07/15/17 20:16 Dextrose (Dextrose 50%) STAT PRN IV Hypoglycemia 07/02/17 19:00 08/01/17 18:59 07/16/17 05:32 Enoxaparin Sodium (Lovenox) 80 mg Q12HR SUBQ 07/09/17 21:00 08/08/17 20:59 07/15/17 21:46 Insulin Aspart (NovoLOG) Q6HR SUBQ 07/04/17 00:00 08/01/17 20:59 07/15/17 17:48 Insulin Detemir (Levemir) 10 units BID SUBQ 07/10/17 09:00 08/09/17 08:59 07/15/17 17:56 Midodrine (Pro-Amatine) 10 mg THREE TIMES A DAY GT 07/11/17 13:00 08/10/17 12:59 07/14/17 17:29 Norepinephrine Bitartrate 4 mg/ Dextrose 250 ml @ 0 mls/hr Q24H IV 07/02/17 21:31 08/01/17 21:30 07/05/17 10:12 Ondansetron HCl (Zofran) 4 mg Q6H PRN GT Nausea & Vomiting 07/02/17 19:00 08/01/17 18:59 Pantoprazole (Protonix) 40 mg DAILY IV 07/03/17 09:00 08/02/17 08:59 07/15/17 09:14 Vitamin A/Vitamin D (A & D Oint) 1 applic EVERY 12 HOURS TOPIC 07/04/17 21:00 08/03/17 20:59 07/15/17 21:44 Item Value Date Time Bedside Blood Glucose 141 mg/dl H 07/16/17 0615 Bedside Blood Glucose 79 mg/dl 07/16/17 0000 Bedside Blood Glucose 183 mg/dl H 07/15/17 1800 Bedside Blood Glucose 133 mg/dl H 07/15/17 1148 Bedside Blood Glucose 103 mg/dl 07/15/17 0921 Bedside Blood Glucose 109 mg/dl 07/15/17 0600 MARIA EUGENIA AUGUST Jul 16, 2017 07:56
[2017-07-16] MEDS: Levemir Flexpen SUBQ SCH ×2 (08:39→21:26)
[2017-07-16] MEDS: Aspirin Baby 81mg GT SCH (08:40)
[2017-07-16] MEDS: Midodrine 10mg tab GT SCH ×3 (08:40→18:30)
[2017-07-16] MEDS: Enoxaparin 80mg Inj SUBQ SCH ×2 (08:41→21:25)
[2017-07-16] MEDS: Vitamin A&D Oint 2oz Tube TOPIC SCH ×2 (08:43→21:29)
[2017-07-16] MEDS: Pantoprazole Inj IV SCH (08:43)
--- NOTE | 2017-07-16 09:13 | Pulmonology Progress Note ---
Assessment/Plan Assessment/Plan 1. Respiratory failure, resolved 2. Sepsis with shock, resolved 3. Pneumonia. 4. Anuria, resolved 5. Prostate cancer with suprapubic catheter. 6. Severe Alzheimer dementia. 7. Severe protein-calorie malnutrition. 8. Anemia. 9. Possible acute myocardial infarction. 10. Azotemia. 11. Hyperglycemia. tolerated extubation transfer to [facility] w Dr Oakes full code per his order abx per ID prognosis guarded Subjective ROS Limited/Unobtainable: Yes Allergies: Coded Allergies: No Known Allergies (Verified , 09/26/12) Objective Last 24 Hour Vital Signs Date Time Temp Pulse Resp B/P (MAP) Pulse Ox O2 Delivery O2 Flow Rate FiO2 07/16/17 06:00 85 16 126/86 100 Nasal Cannula 2.0 07/16/17 05:00 76 15 123/67 100 Nasal Cannula 2.0 07/16/17 04:00 72 07/16/17 04:00 98.6 60 16 122/62 99 Nasal Cannula 2.0 07/16/17 03:00 69 15 108/50 100 Nasal Cannula 2.0 07/16/17 02:00 82 19 126/65 100 Nasal Cannula 2.0 07/16/17 01:00 83 16 167/95 99 Nasal Cannula 2.0 07/16/17 00:00 72 07/16/17 00:00 98.9 74 16 118/55 100 Nasal Cannula 2.0 07/15/17 23:00 70 16 119/56 99 Nasal Cannula 2.0 07/15/17 22:00 73 16 96/45 99 Nasal Cannula 2.0 07/15/17 21:31 100/45 07/15/17 21:00 75 15 96/45 99 Nasal Cannula 2.0 07/15/17 20:00 98.0 82 16 100/45 100 Nasal Cannula 2.0 07/15/17 20:00 80 07/15/17 19:35 Nasal Cannula 3.0 32 07/15/17 19:35 99 Nasal Cannula 3.0 32 07/15/17 18:00 86 140/65 Nasal Cannula 3.0 07/15/17 17:55 88 22 07/15/17 17:00 85 19 124/77 97 07/15/17 16:59 98.3 07/15/17 16:49 96 31 30 07/15/17 16:00 98.3 91 16 136/80 97 Mechanical Ventilator 07/15/17 16:00 30 07/15/17 16:00 81 07/15/17 15:15 87 25 30 07/15/17 15:00 82 16 130/48 98 Endotracheal Tube 07/15/17 14:00 84 20 130/48 98 Mechanical Ventilator 07/15/17 13:05 86 22 30 07/15/17 13:00 84 22 122/60 98 Mechanical Ventilator 07/15/17 12:00 30 07/15/17 12:00 99.0 89 20 108/66 99 Mechanical Ventilator 07/15/17 12:00 89 07/15/17 11:17 84 22 30 07/15/17 11:00 88 16 136/74 100 Endotracheal Tube 07/15/17 10:00 99.3 94 20 128/72 100 Mechanical Ventilator Intake and Output 07/15/17 07/16/17 19:00 07:00 Intake Total 800 ml 660 ml Output Total 2220 ml 1210 ml Balance -1420 ml -550 ml Intake Free Water 250 ml Tube Feeding 550 ml 660 ml Output Urine Total 2220 ml 1210 ml Objective G tube, suprapubic cath General Appearance: no acute distress, cachetic Respiratory/Chest: lungs clear Cardiovascular: normal rate Laboratory Tests 07/16/17 04:10: White Blood Count 6.4, Red Blood Count 3.71L, Hemoglobin 10.9L, Hematocrit 34.0L , Mean Corpuscular Volume 92, Mean Corpuscular Hemoglobin 29.4, Mean Corpuscular Hemoglobin Concent 32.1, Red Cell Distribution Width 13.4, Platelet Count 514H, Mean Platelet Volume 7.4, Neutrophils (%) (Auto) 61.8, Lymphocytes ( %) (Auto) 18.7L, Monocytes (%) (Auto) 11.2H, Eosinophils (%) (Auto) 6.8H, Basophils (%) (Auto) 1.6, Sodium Level 141, Potassium Level 4.9, Chloride Level 106, Carbon Dioxide Level 31, Anion Gap 4L, Blood Urea Nitrogen 18, Creatinine 0.7, Estimat Glomerular Filtration Rate , Glucose Level 55L, Calcium Level 8.3L , Total Bilirubin 0.2, Aspartate Amino Transf (AST/SGOT) 16, Alanine Aminotransferase (ALT/SGPT) 11L, Alkaline Phosphatase 80, Total Protein 6.6, Albumin 1.9L, Globulin 4.7, Albumin/Globulin Ratio 0.4L Current Medications Medications (Trade) Dose Ordered Sig/Matt Route PRN Reason Start Time Stop Time Status Last Admin Dose Admin Acetaminophen (Tylenol) 650 mg Q4H PRN GT Mild Pain (1-3) 07/02/17 19:00 08/01/17 18:59 07/15/17 16:29 Aspirin (ASA) 81 mg DAILY GT 07/03/17 09:00 08/02/17 08:59 07/16/17 08:40 Chlorhexidine Gluconate (Mari-Hex 2%) 1 applic DAILY@1999 TOPIC 07/03/17 20:00 08/02/17 19:59 07/15/17 20:16 Dextrose (Dextrose 50%) STAT PRN IV Hypoglycemia 07/02/17 19:00 08/01/17 18:59 07/16/17 05:32 Enoxaparin Sodium (Lovenox) 80 mg Q12HR SUBQ 07/09/17 21:00 08/08/17 20:59 07/16/17 08:41 Insulin Aspart (NovoLOG) Q6HR SUBQ 07/04/17 00:00 08/01/17 20:59 07/15/17 17:48 Insulin Detemir (Levemir) 10 units BID SUBQ 07/10/17 09:00 08/09/17 08:59 07/15/17 17:56 Midodrine (Pro-Amatine) 10 mg THREE TIMES A DAY GT 07/11/17 13:00 08/10/17 12:59 07/16/17 08:40 Norepinephrine Bitartrate 4 mg/ Dextrose 250 ml @ 0 mls/hr Q24H IV 07/02/17 21:31 08/01/17 21:30 07/05/17 10:12 Ondansetron HCl (Zofran) 4 mg Q6H PRN GT Nausea & Vomiting 07/02/17 19:00 08/01/17 18:59 Pantoprazole (Protonix) 40 mg DAILY IV 07/03/17 09:00 08/02/17 08:59 07/16/17 08:43 Vitamin A/Vitamin D (A & D Oint) 1 applic EVERY 12 HOURS TOPIC 07/04/17 21:00 08/03/17 20:59 07/16/17 08:43 SABAS KNOTT Jul 16, 2017 09:13
--- NOTE | 2017-07-16 09:45 | General Progress Note ---
Assessment/Plan Assessment/Plan ASSESSMENT AND RECOMMENDATIONS: 1. OB positive? Will repeat. H/H stable and improving 2. Prostate cancer, controlled at this time. Current PSA of 5.6. With suprapubic catheter 3. Leukocytosis, secondary to underlying infection, infiltrates noted.ID following. --> wbc count has normalized. Off abx 4. Anemia, rule out gastrointestinal bleed. Ferritin wnl. H/H stable at this time 5. Sepsis resolved Subjective Allergies: Coded Allergies: No Known Allergies (Verified , 09/26/12) All Systems: reviewed and negative except above Subjective Now extubated. Objective Last 24 Hour Vital Signs Date Time Temp Pulse Resp B/P (MAP) Pulse Ox O2 Delivery O2 Flow Rate FiO2 07/16/17 06:00 85 16 126/86 100 Nasal Cannula 2.0 07/16/17 05:00 76 15 123/67 100 Nasal Cannula 2.0 07/16/17 04:00 72 07/16/17 04:00 98.6 60 16 122/62 99 Nasal Cannula 2.0 07/16/17 03:00 69 15 108/50 100 Nasal Cannula 2.0 07/16/17 02:00 82 19 126/65 100 Nasal Cannula 2.0 07/16/17 01:00 83 16 167/95 99 Nasal Cannula 2.0 07/16/17 00:00 72 07/16/17 00:00 98.9 74 16 118/55 100 Nasal Cannula 2.0 07/15/17 23:00 70 16 119/56 99 Nasal Cannula 2.0 07/15/17 22:00 73 16 96/45 99 Nasal Cannula 2.0 07/15/17 21:31 100/45 07/15/17 21:00 75 15 96/45 99 Nasal Cannula 2.0 07/15/17 20:00 98.0 82 16 100/45 100 Nasal Cannula 2.0 07/15/17 20:00 80 07/15/17 19:35 Nasal Cannula 3.0 32 07/15/17 19:35 99 Nasal Cannula 3.0 32 07/15/17 18:00 86 140/65 Nasal Cannula 3.0 07/15/17 17:55 88 22 07/15/17 17:00 85 19 124/77 97 07/15/17 16:59 98.3 07/15/17 16:49 96 31 30 07/15/17 16:00 98.3 91 16 136/80 97 Mechanical Ventilator 07/15/17 16:00 30 07/15/17 16:00 81 07/15/17 15:15 87 25 30 07/15/17 15:00 82 16 130/48 98 Endotracheal Tube 07/15/17 14:00 84 20 130/48 98 Mechanical Ventilator 07/15/17 13:05 86 22 30 07/15/17 13:00 84 22 122/60 98 Mechanical Ventilator 07/15/17 12:00 30 07/15/17 12:00 99.0 89 20 108/66 99 Mechanical Ventilator 07/15/17 12:00 89 07/15/17 11:17 84 22 30 07/15/17 11:00 88 16 136/74 100 Endotracheal Tube 07/15/17 10:00 99.3 94 20 128/72 100 Mechanical Ventilator Intake and Output 07/15/17 07/16/17 19:00 07:00 Intake Total 800 ml 660 ml Output Total 2220 ml 1210 ml Balance -1420 ml -550 ml Intake Free Water 250 ml Tube Feeding 550 ml 660 ml Output Urine Total 2220 ml 1210 ml Laboratory Tests 07/16/17 04:10: White Blood Count 6.4, Red Blood Count 3.71L, Hemoglobin 10.9L, Hematocrit 34.0L , Mean Corpuscular Volume 92, Mean Corpuscular Hemoglobin 29.4, Mean Corpuscular Hemoglobin Concent 32.1, Red Cell Distribution Width 13.4, Platelet Count 514H, Mean Platelet Volume 7.4, Neutrophils (%) (Auto) 61.8, Lymphocytes ( %) (Auto) 18.7L, Monocytes (%) (Auto) 11.2H, Eosinophils (%) (Auto) 6.8H, Basophils (%) (Auto) 1.6, Sodium Level 141, Potassium Level 4.9, Chloride Level 106, Carbon Dioxide Level 31, Anion Gap 4L, Blood Urea Nitrogen 18, Creatinine 0.7, Estimat Glomerular Filtration Rate , Glucose Level 55L, Calcium Level 8.3L , Total Bilirubin 0.2, Aspartate Amino Transf (AST/SGOT) 16, Alanine Aminotransferase (ALT/SGPT) 11L, Alkaline Phosphatase 80, Total Protein 6.6, Albumin 1.9L, Globulin 4.7, Albumin/Globulin Ratio 0.4L Height (Feet): 6 Weight (Pounds): 171 General Appearance: no apparent distress EENT: normal ENT inspection Neck: normal alignment Cardiovascular: normal peripheral pulses 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
[2017-07-16] MEDS ORDERED: Acetaminophen 650mg/20.3ml GT PRN (11:00)
--- NOTE | 2017-07-16 12:33 | General Progress Note ---
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 - PPI - abx Subjective Allergies: Coded Allergies: No Known Allergies (Verified , 09/26/12) Subjective above noted d/w RN tolerating feeds extubated feels "OK" Objective Last 24 Hour Vital Signs Date Time Temp Pulse Resp B/P (MAP) Pulse Ox O2 Delivery O2 Flow Rate FiO2 07/16/17 09:00 86 25 135/81 98 Nasal Cannula 2.0 07/16/17 08:00 80 24 113/65 98 Nasal Cannula 2.0 07/16/17 07:00 98.4 80 18 126/65 98 Nasal Cannula 2.0 07/16/17 06:00 85 16 126/86 100 Nasal Cannula 2.0 07/16/17 05:00 76 15 123/67 100 Nasal Cannula 2.0 07/16/17 04:00 72 07/16/17 04:00 98.6 60 16 122/62 99 Nasal Cannula 2.0 07/16/17 03:00 69 15 108/50 100 Nasal Cannula 2.0 07/16/17 02:00 82 19 126/65 100 Nasal Cannula 2.0 07/16/17 01:00 83 16 167/95 99 Nasal Cannula 2.0 07/16/17 00:00 72 07/16/17 00:00 98.9 74 16 118/55 100 Nasal Cannula 2.0 07/15/17 23:00 70 16 119/56 99 Nasal Cannula 2.0 07/15/17 22:00 73 16 96/45 99 Nasal Cannula 2.0 07/15/17 21:31 100/45 07/15/17 21:00 75 15 96/45 99 Nasal Cannula 2.0 07/15/17 20:00 98.0 82 16 100/45 100 Nasal Cannula 2.0 07/15/17 20:00 80 07/15/17 19:35 Nasal Cannula 3.0 32 07/15/17 19:35 99 Nasal Cannula 3.0 32 07/15/17 18:00 86 140/65 Nasal Cannula 3.0 07/15/17 17:55 88 22 07/15/17 17:00 85 19 124/77 97 07/15/17 16:59 98.3 07/15/17 16:49 96 31 30 07/15/17 16:00 98.3 91 16 136/80 97 Mechanical Ventilator 07/15/17 16:00 30 07/15/17 16:00 81 07/15/17 15:15 87 25 30 07/15/17 15:00 82 16 130/48 98 Endotracheal Tube 07/15/17 14:00 84 20 130/48 98 Mechanical Ventilator 07/15/17 13:05 86 22 30 07/15/17 13:00 84 22 122/60 98 Mechanical Ventilator Intake and Output 07/15/17 07/16/17 19:00 07:00 Intake Total 800 ml 660 ml Output Total 2220 ml 1210 ml Balance -1420 ml -550 ml Intake Free Water 250 ml Tube Feeding 550 ml 660 ml Output Urine Total 2220 ml 1210 ml Laboratory Tests 07/16/17 04:10: White Blood Count 6.4, Red Blood Count 3.71L, Hemoglobin 10.9L, Hematocrit 34.0L , Mean Corpuscular Volume 92, Mean Corpuscular Hemoglobin 29.4, Mean Corpuscular Hemoglobin Concent 32.1, Red Cell Distribution Width 13.4, Platelet Count 514H, Mean Platelet Volume 7.4, Neutrophils (%) (Auto) 61.8, Lymphocytes ( %) (Auto) 18.7L, Monocytes (%) (Auto) 11.2H, Eosinophils (%) (Auto) 6.8H, Basophils (%) (Auto) 1.6, Sodium Level 141, Potassium Level 4.9, Chloride Level 106, Carbon Dioxide Level 31, Anion Gap 4L, Blood Urea Nitrogen 18, Creatinine 0.7, Estimat Glomerular Filtration Rate , Glucose Level 55L, Calcium Level 8.3L , Total Bilirubin 0.2, Aspartate Amino Transf (AST/SGOT) 16, Alanine Aminotransferase (ALT/SGPT) 11L, Alkaline Phosphatase 80, Total Protein 6.6, Albumin 1.9L, Globulin 4.7, Albumin/Globulin Ratio 0.4L Height (Feet): 6 Weight (Pounds): 171 Objective Eldely WM NCAT supple, (+ ) IJ catheter CTA RR soft flat, (+) GT, (+) SP catheter no edema OBS CURTIS GARCIA Jul 16, 2017 12:33
--- NOTE | 2017-07-16 14:23 | Nephrology Progress Note ---
Assessment/Plan Problem List: (1) Respiratory distress (2) Suprapubic catheter (3) Septic shock (4) Electrolyte abnormality Assessment HypoKalemia- resolved Respiratory Failure on Vent now extubated Septic shock / Pneumonia / UTI Oliguria due to low BP Prostate cancer with suprapubic catheter. Severe Alzheimer dementia. Severe protein-calorie malnutrition. Anemia. Hyperglycemia. Plan Plan: per consultants FLuid challenge- Cortisol level wnl Antibiotics pulmonary support K supplements Per order Subjective ROS Limited/Unobtainable: No Objective Objective Last 24 Hour Vital Signs Date Time Temp Pulse Resp B/P (MAP) Pulse Ox O2 Delivery O2 Flow Rate FiO2 07/16/17 12:30 67 07/16/17 12:00 97.7 80 16 118/89 93 Nasal Cannula 2.0 07/16/17 09:00 86 25 135/81 98 Nasal Cannula 2.0 07/16/17 08:00 70 07/16/17 08:00 80 24 113/65 98 Nasal Cannula 2.0 07/16/17 07:00 98.4 80 18 126/65 98 Nasal Cannula 2.0 07/16/17 06:00 85 16 126/86 100 Nasal Cannula 2.0 07/16/17 05:00 76 15 123/67 100 Nasal Cannula 2.0 07/16/17 04:00 72 07/16/17 04:00 98.6 60 16 122/62 99 Nasal Cannula 2.0 07/16/17 03:00 69 15 108/50 100 Nasal Cannula 2.0 07/16/17 02:00 82 19 126/65 100 Nasal Cannula 2.0 07/16/17 01:00 83 16 167/95 99 Nasal Cannula 2.0 07/16/17 00:00 72 07/16/17 00:00 98.9 74 16 118/55 100 Nasal Cannula 2.0 07/15/17 23:00 70 16 119/56 99 Nasal Cannula 2.0 07/15/17 22:00 73 16 96/45 99 Nasal Cannula 2.0 07/15/17 21:31 100/45 07/15/17 21:00 75 15 96/45 99 Nasal Cannula 2.0 07/15/17 20:00 98.0 82 16 100/45 100 Nasal Cannula 2.0 07/15/17 20:00 80 07/15/17 19:35 Nasal Cannula 3.0 32 07/15/17 19:35 99 Nasal Cannula 3.0 32 07/15/17 18:00 86 140/65 Nasal Cannula 3.0 07/15/17 17:55 88 22 07/15/17 17:00 85 19 124/77 97 07/15/17 16:59 98.3 07/15/17 16:49 96 31 30 07/15/17 16:00 98.3 91 16 136/80 97 Mechanical Ventilator 07/15/17 16:00 30 07/15/17 16:00 81 07/15/17 15:15 87 25 30 07/15/17 15:00 82 16 130/48 98 Endotracheal Tube Intake and Output 07/15/17 07/16/17 19:00 07:00 Intake Total 800 ml 660 ml Output Total 2220 ml 1210 ml Balance -1420 ml -550 ml Intake Free Water 250 ml Tube Feeding 550 ml 660 ml Output Urine Total 2220 ml 1210 ml Laboratory Tests 07/16/17 04:10: White Blood Count 6.4, Red Blood Count 3.71L, Hemoglobin 10.9L, Hematocrit 34.0L , Mean Corpuscular Volume 92, Mean Corpuscular Hemoglobin 29.4, Mean Corpuscular Hemoglobin Concent 32.1, Red Cell Distribution Width 13.4, Platelet Count 514H, Mean Platelet Volume 7.4, Neutrophils (%) (Auto) 61.8, Lymphocytes ( %) (Auto) 18.7L, Monocytes (%) (Auto) 11.2H, Eosinophils (%) (Auto) 6.8H, Basophils (%) (Auto) 1.6, Sodium Level 141, Potassium Level 4.9, Chloride Level 106, Carbon Dioxide Level 31, Anion Gap 4L, Blood Urea Nitrogen 18, Creatinine 0.7, Estimat Glomerular Filtration Rate , Glucose Level 55L, Calcium Level 8.3L , Total Bilirubin 0.2, Aspartate Amino Transf (AST/SGOT) 16, Alanine Aminotransferase (ALT/SGPT) 11L, Alkaline Phosphatase 80, Total Protein 6.6, Albumin 1.9L, Globulin 4.7, Albumin/Globulin Ratio 0.4L Height (Feet): 6 Weight (Pounds): 171 General Appearance: no apparent distress EENT: other - extubated Respiratory/Chest: decreased breath sounds Abdomen: soft Objective no other change FAITH SEARS 22, 2017 14:23
--- NOTE | 2017-07-16 15:52 | Infectious Diseases Prog Note ---
Assessment/Plan Assessment/Plan A; Septic Shock resolved Complicated UTI with MRSA & pseudomonas s/p RX Pneumonia treated for 10 days CoANS in blood likely contamination Acute respiratory failure improved MRSA colonization P; observe off antibiotic Subjective Constitutional: Reports: other - doing better, m Cardiovascular: Reports: other - extubated Allergies: Coded Allergies: No Known Allergies (Verified , 09/26/12) Objective Vital Signs Last 24 Hour Vital Signs Date Time Temp Pulse Resp B/P (MAP) Pulse Ox O2 Delivery O2 Flow Rate FiO2 07/16/17 12:30 67 07/16/17 12:00 97.7 80 16 118/89 93 Nasal Cannula 2.0 07/16/17 09:00 86 25 135/81 98 Nasal Cannula 2.0 07/16/17 08:00 70 07/16/17 08:00 80 24 113/65 98 Nasal Cannula 2.0 07/16/17 07:00 98.4 80 18 126/65 98 Nasal Cannula 2.0 07/16/17 06:00 85 16 126/86 100 Nasal Cannula 2.0 07/16/17 05:00 76 15 123/67 100 Nasal Cannula 2.0 07/16/17 04:00 72 07/16/17 04:00 98.6 60 16 122/62 99 Nasal Cannula 2.0 07/16/17 03:00 69 15 108/50 100 Nasal Cannula 2.0 07/16/17 02:00 82 19 126/65 100 Nasal Cannula 2.0 07/16/17 01:00 83 16 167/95 99 Nasal Cannula 2.0 07/16/17 00:00 72 07/16/17 00:00 98.9 74 16 118/55 100 Nasal Cannula 2.0 07/15/17 23:00 70 16 119/56 99 Nasal Cannula 2.0 07/15/17 22:00 73 16 96/45 99 Nasal Cannula 2.0 07/15/17 21:31 100/45 07/15/17 21:00 75 15 96/45 99 Nasal Cannula 2.0 07/15/17 20:00 98.0 82 16 100/45 100 Nasal Cannula 2.0 07/15/17 20:00 80 07/15/17 19:35 Nasal Cannula 3.0 32 07/15/17 19:35 99 Nasal Cannula 3.0 32 07/15/17 18:00 86 140/65 Nasal Cannula 3.0 07/15/17 17:55 88 22 07/15/17 17:00 85 19 124/77 97 07/15/17 16:59 98.3 07/15/17 16:49 96 31 30 07/15/17 16:00 98.3 91 16 136/80 97 Mechanical Ventilator 07/15/17 16:00 30 07/15/17 16:00 81 Height (Feet): 6 Weight (Pounds): 171 General Appearance: no acute distress HEENT: mucous membranes moist Respiratory/Chest: rhonchi - bilaterally Cardiovascular: normal rate Abdomen: soft, non tender, other - GT feeding Extremities: no edema Neurologic/Psychiatric: disoriented, aphasia Laboratory Tests Test 07/16/17 04:10 White Blood Count 6.4 K/UL (4.8-10.8) Red Blood Count 3.71 M/UL (4.70-6.10) L Hemoglobin 10.9 G/DL (14.2-18.0) L Hematocrit 34.0 % (42.0-52.0) L Mean Corpuscular Volume 92 FL (80-99) Mean Corpuscular Hemoglobin 29.4 PG (27.0-31.0) Mean Corpuscular Hemoglobin Concent 32.1 G/DL (32.0-36.0) Red Cell Distribution Width 13.4 % (11.6-14.8) Platelet Count 514 K/UL (150-450) H Mean Platelet Volume 7.4 FL (6.5-10.1) Neutrophils (%) (Auto) 61.8 % (45.0-75.0) Lymphocytes (%) (Auto) 18.7 % (20.0-45.0) L Monocytes (%) (Auto) 11.2 % (1.0-10.0) H Eosinophils (%) (Auto) 6.8 % (0.0-3.0) H Basophils (%) (Auto) 1.6 % (0.0-2.0) Sodium Level 141 MMOL/L (136-145) Potassium Level 4.9 MMOL/L (3.5-5.1) Chloride Level 106 MMOL/L (98-107) Carbon Dioxide Level 31 MMOL/L (21-32) Anion Gap 4 mmol/L (5-15) L Blood Urea Nitrogen 18 mg/dL (7-18) Creatinine 0.7 MG/DL (0.55-1.30) Estimat Glomerular Filtration Rate mL/min (>60) Glucose Level 55 MG/DL (74-106) L Calcium Level 8.3 MG/DL (8.5-10.1) L Total Bilirubin 0.2 MG/DL (0.2-1.0) Aspartate Amino Transf (AST/SGOT) 16 U/L (15-37) Alanine Aminotransferase (ALT/SGPT) 11 U/L (12-78) L Alkaline Phosphatase 80 U/L (46-116) Total Protein 6.6 G/DL (6.4-8.2) Albumin 1.9 G/DL (3.4-5.0) L Globulin 4.7 g/dL Albumin/Globulin Ratio 0.4 (1.0-2.7) L Current Medications Medications (Trade) Dose Ordered Sig/Matt Route PRN Reason Start Time Stop Time Status Last Admin Dose Admin Acetaminophen (Tylenol) 650 mg Q4H PRN GT Mild Pain (1-3) 07/16/17 11:00 08/01/17 18:59 Aspirin (ASA) 81 mg DAILY GT 07/17/17 09:00 08/02/17 08:59 Chlorhexidine Gluconate (Mari-Hex 2%) 1 applic DAILY@1999 TOPIC 07/16/17 20:00 08/02/17 19:59 Dextrose (Dextrose 50%) STAT PRN IV Hypoglycemia 07/16/17 11:00 08/01/17 10:59 Enoxaparin Sodium (Lovenox) 80 mg Q12HR SUBQ 07/16/17 21:00 08/08/17 20:59 Insulin Aspart (NovoLOG) Q6HR SUBQ 07/16/17 12:00 08/01/17 20:59 Insulin Detemir (Levemir) 10 units Q12HR SUBQ 07/16/17 21:00 08/15/17 20:59 Midodrine (Pro-Amatine) 10 mg THREE TIMES A DAY GT 07/16/17 13:00 08/10/17 12:59 07/16/17 13:13 Ondansetron HCl (Zofran) 4 mg Q6H PRN GT Nausea & Vomiting 07/16/17 11:00 08/01/17 10:59 Pantoprazole (Protonix) 40 mg DAILY IV 07/17/17 09:00 08/02/17 08:59 Vitamin A/Vitamin D (A & D Oint) 1 applic EVERY 12 HOURS TOPIC 07/16/17 21:00 08/03/17 20:59 BREANNE CERVANTES Jul 16, 2017 15:52
[2017-07-16] MEDS ORDERED: Dyna-Hex 2% Top Sol 2oz TOPIC SCH (20:00)
--- NOTE | 2017-07-16 20:50 | General Progress Note ---
Assessment/Plan Problem List: (1) COPD (chronic obstructive pulmonary disease) ICD Codes: J44.9 - Chronic obstructive pulmonary disease SNOMED: 36264770 (2) Suprapubic catheter ICD Codes: Z93.59 - Other cystostomy status SNOMED: 209022816, 333076397 (3) Catheter-associated urinary tract infection ICD Codes: T83.511A - Infection and inflammatory reaction due to indwelling urethral catheter, initial encounter; N39.0 - Urinary tract infection, site not specified SNOMED: 948677628 (4) Anemia ICD Codes: D64.9 - Anemia, unspecified SNOMED: 726569690 (5) Dementia ICD Codes: F03.90 - Unspecified dementia without behavioral disturbance SNOMED: 25232793 (6) Seizure ICD Codes: R56.9 - Unspecified convulsions SNOMED: 71581530 (7) Prostate cancer ICD Codes: C61 - Malignant neoplasm of prostate SNOMED: 047533078 (8) COPD (chronic obstructive pulmonary disease) ICD Codes: J44.9 - Chronic obstructive pulmonary disease, unspecified SNOMED: 72124142 (9) Respiratory distress ICD Codes: R06.03 - Acute respiratory distress SNOMED: 808610135 (10) Sepsis ICD Codes: A41.9 - Sepsis, unspecified organism SNOMED: 11745308 Status: progressing Assessment/Plan afebrile sepsis and pna abx per id s/o extubation the patient for now patient is full code so if need be will reintubate pna Subjective ROS Limited/Unobtainable: Yes Allergies: Coded Allergies: No Known Allergies (Verified , 09/26/12) Objective Last 24 Hour Vital Signs Date Time Temp Pulse Resp B/P (MAP) Pulse Ox O2 Delivery O2 Flow Rate FiO2 07/16/17 16:00 67 07/16/17 16:00 98.1 81 16 153/93 96 Nasal Cannula 4.0 07/16/17 12:30 67 07/16/17 12:00 97.7 80 16 118/89 93 Nasal Cannula 2.0 07/16/17 09:00 86 25 135/81 98 Nasal Cannula 2.0 07/16/17 08:00 70 07/16/17 08:00 80 24 113/65 98 Nasal Cannula 2.0 07/16/17 07:00 98.4 80 18 126/65 98 Nasal Cannula 2.0 07/16/17 06:00 85 16 126/86 100 Nasal Cannula 2.0 07/16/17 05:00 76 15 123/67 100 Nasal Cannula 2.0 07/16/17 04:00 72 07/16/17 04:00 98.6 60 16 122/62 99 Nasal Cannula 2.0 07/16/17 03:00 69 15 108/50 100 Nasal Cannula 2.0 07/16/17 02:00 82 19 126/65 100 Nasal Cannula 2.0 07/16/17 01:00 83 16 167/95 99 Nasal Cannula 2.0 07/16/17 00:00 72 07/16/17 00:00 98.9 74 16 118/55 100 Nasal Cannula 2.0 07/15/17 23:00 70 16 119/56 99 Nasal Cannula 2.0 07/15/17 22:00 73 16 96/45 99 Nasal Cannula 2.0 07/15/17 21:31 100/45 07/15/17 21:00 75 15 96/45 99 Nasal Cannula 2.0 Intake and Output 07/15/17 07/16/17 19:00 07:00 Intake Total 800 ml 660 ml Output Total 2220 ml 1210 ml Balance -1420 ml -550 ml Intake Free Water 250 ml Tube Feeding 550 ml 660 ml Output Urine Total 2220 ml 1210 ml Laboratory Tests 07/16/17 04:10: White Blood Count 6.4, Red Blood Count 3.71L, Hemoglobin 10.9L, Hematocrit 34.0L , Mean Corpuscular Volume 92, Mean Corpuscular Hemoglobin 29.4, Mean Corpuscular Hemoglobin Concent 32.1, Red Cell Distribution Width 13.4, Platelet Count 514H, Mean Platelet Volume 7.4, Neutrophils (%) (Auto) 61.8, Lymphocytes ( %) (Auto) 18.7L, Monocytes (%) (Auto) 11.2H, Eosinophils (%) (Auto) 6.8H, Basophils (%) (Auto) 1.6, Sodium Level 141, Potassium Level 4.9, Chloride Level 106, Carbon Dioxide Level 31, Anion Gap 4L, Blood Urea Nitrogen 18, Creatinine 0.7, Estimat Glomerular Filtration Rate , Glucose Level 55L, Calcium Level 8.3L , Total Bilirubin 0.2, Aspartate Amino Transf (AST/SGOT) 16, Alanine Aminotransferase (ALT/SGPT) 11L, Alkaline Phosphatase 80, Total Protein 6.6, Albumin 1.9L, Globulin 4.7, Albumin/Globulin Ratio 0.4L Height (Feet): 6 Weight (Pounds): 171 General Appearance: confused Respiratory/Chest: lungs clear Sary Oakes MD Jul 16, 2017 20:50
[2017-07-17] VITALS: BP 146/83
[2017-07-17] MEDS: NovoLOG Insulin Flexpen SUBQ SCH ×4 (00:28→17:26)
[2017-07-17 04:00] VITALS: BP 109/62
[2017-07-17 06:15] LABS: BASOPHILS % (AUTO) 1.7 % (0.0-2.0); EOSINOPHILS % (AUTO) 4.9 % (0.0-3.0); MEAN CORPUSCULAR HEMOGLOBIN 29.3 PG (27.0-31.0); MEAN CORPUSCULAR HGB CONC 31.8 G/DL (32.0-36.0); MEAN CORPUSCULAR VOLUME 92 FL (80-99); MEAN PLATELET VOLUME 7.4 FL (6.5-10.1); MONOCYTES % (AUTO) 10.1 % (1.0-10.0); NEUTROPHILS % (AUTO) 67.3 % (45.0-75.0); PLATELET COUNT 563 K/UL (150-450); RED BLOOD COUNT 4.07 M/UL (4.70-6.10); RED CELL DISTRIBUTION WIDTH 13.5 % (11.6-14.8); WHITE BLOOD COUNT 6.7 K/UL (4.8-10.8)
[2017-07-17 06:55] LABS: ALANINE AMINOTRANSFERASE 18 U/L (12-78); ALBUMIN/GLOBULIN RATIO 0.4 (1.0-2.7); ANION GAP 3 mmol/L (5-15); ASPARTATE AMINO TRANSFERASE 19 U/L (15-37); CALCIUM 8.6 MG/DL (8.5-10.1); CARBON DIOXIDE 32 MMOL/L (21-32); CHLORIDE 103 MMOL/L (98-107); CREATININE 0.7 MG/DL (0.55-1.30); POTASSIUM 4.9 MMOL/L (3.5-5.1); SODIUM 138 MMOL/L (136-145); TOTAL PROTEIN 7.3 G/DL (6.4-8.2)
[2017-07-17 08:00] VITALS: BP 106/85
[2017-07-17] MEDS: Aspirin Baby 81mg GT SCH (08:38)
[2017-07-17] MEDS: Midodrine 10mg tab GT SCH ×3 (08:38→17:25)
[2017-07-17] MEDS: Pantoprazole Inj IV SCH (08:38)
[2017-07-17] MEDS: Levemir Flexpen SUBQ SCH ×2 (08:40→21:26)
[2017-07-17] MEDS: Enoxaparin 80mg Inj SUBQ SCH ×2 (08:41→21:25)
[2017-07-17] MEDS: Vitamin A&D Oint 2oz Tube TOPIC SCH ×2 (08:41→21:26)
--- NOTE | 2017-07-17 08:42 | General Progress Note ---
Assessment/Plan Problem List: (1) G tube feedings ICD Codes: Z93.1 - Gastrostomy status SNOMED: 242386311, 786471287 (2) Diabetes mellitus ICD Codes: E11.9 - Type 2 diabetes mellitus without complications SNOMED: 72496617 (3) Dementia ICD Codes: F03.90 - Unspecified dementia without behavioral disturbance SNOMED: 84680532 (4) Anemia ICD Codes: D64.9 - Anemia, unspecified SNOMED: 852903501 (5) Dysphagia ICD Codes: R13.10 - Dysphagia SNOMED: 16412051 (6) Prostate cancer ICD Codes: C61 - Malignant neoplasm of prostate SNOMED: 198507110 Assessment/Plan GTF monitor H&H ppi for GI prophylaxis add laxatives, no BM for 5 days Subjective ROS Limited/Unobtainable: No Allergies: Coded Allergies: No Known Allergies (Verified , 09/26/12) Objective Last 24 Hour Vital Signs Date Time Temp Pulse Resp B/P (MAP) Pulse Ox O2 Delivery O2 Flow Rate FiO2 07/17/17 04:00 98.3 63 20 109/62 99 Nasal Cannula 4.0 07/17/17 04:00 80 07/17/17 00:00 79 07/17/17 00:00 98.0 84 20 146/83 96 Nasal Cannula 4.0 07/16/17 20:00 83 07/16/17 20:00 98.7 92 16 118/90 96 Nasal Cannula 4.0 07/16/17 16:00 67 07/16/17 16:00 98.1 81 16 153/93 96 Nasal Cannula 4.0 07/16/17 12:30 67 07/16/17 12:00 97.7 80 16 118/89 93 Nasal Cannula 2.0 07/16/17 09:00 86 25 135/81 98 Nasal Cannula 2.0 Intake and Output 07/16/17 07/17/17 19:00 07:00 Intake Total 950 ml 805 ml Output Total 1200 ml 900 ml Balance -250 ml -95 ml Intake Free Water 50 ml 200 ml Tube Feeding 660 ml 605 ml Other 240 ml Output Urine Total 1200 ml 900 ml Laboratory Tests 07/17/17 04:45: White Blood Count 6.7, Red Blood Count 4.07L, Hemoglobin 11.9L, Hematocrit 37.5L , Mean Corpuscular Volume 92, Mean Corpuscular Hemoglobin 29.3, Mean Corpuscular Hemoglobin Concent 31.8L, Red Cell Distribution Width 13.5, Platelet Count 563H, Mean Platelet Volume 7.4, Neutrophils (%) (Auto) 67.3, Lymphocytes (%) (Auto) 16.0L, Monocytes (%) (Auto) 10.1H, Eosinophils (%) (Auto ) 4.9H, Basophils (%) (Auto) 1.7, Sodium Level 138, Potassium Level 4.9, Chloride Level 103, Carbon Dioxide Level 32, Anion Gap 3L, Blood Urea Nitrogen 21H, Creatinine 0.7, Estimat Glomerular Filtration Rate , Glucose Level 158#H, Calcium Level 8.6, Total Bilirubin 0.2, Aspartate Amino Transf (AST/SGOT) 19, Alanine Aminotransferase (ALT/SGPT) 18, Alkaline Phosphatase 92, Total Protein 7.3, Albumin 2.2L, Globulin 5.1, Albumin/Globulin Ratio 0.4L Height (Feet): 6 Weight (Pounds): 174 General Appearance: no apparent distress EENT: normal ENT inspection Neck: supple Cardiovascular: normal rate Respiratory/Chest: decreased breath sounds Abdomen: normal bowel sounds, non tender, soft Extremities: non-tender DAVID ESTRADA Jul 17, 2017 08:42
[2017-07-17] MEDS ORDERED: Miralax 17gm pkt ORAL PRN (08:45)
[2017-07-17] MEDS ORDERED: Lactulose 10gm/15ml UDC ORAL SCH (09:00)
--- NOTE | 2017-07-17 09:22 | General Progress Note ---
Assessment/Plan Problem List: (1) COPD (chronic obstructive pulmonary disease) ICD Codes: J44.9 - Chronic obstructive pulmonary disease SNOMED: 72742060 (2) Suprapubic catheter ICD Codes: Z93.59 - Other cystostomy status SNOMED: 069632048, 897504804 (3) Catheter-associated urinary tract infection ICD Codes: T83.511A - Infection and inflammatory reaction due to indwelling urethral catheter, initial encounter; N39.0 - Urinary tract infection, site not specified SNOMED: 409668117 (4) Anemia ICD Codes: D64.9 - Anemia, unspecified SNOMED: 608750154 (5) Dementia ICD Codes: F03.90 - Unspecified dementia without behavioral disturbance SNOMED: 73299468 (6) Seizure ICD Codes: R56.9 - Unspecified convulsions SNOMED: 68839932 (7) Prostate cancer ICD Codes: C61 - Malignant neoplasm of prostate SNOMED: 057505708 (8) COPD (chronic obstructive pulmonary disease) ICD Codes: J44.9 - Chronic obstructive pulmonary disease, unspecified SNOMED: 06059230 (9) Respiratory distress ICD Codes: R06.03 - Acute respiratory distress SNOMED: 473701308 (10) Sepsis ICD Codes: A41.9 - Sepsis, unspecified organism SNOMED: 81618914 Status: progressing Assessment/Plan s/p extubation afebrile seizure none today prostate ca copd no wheezing sepsis and pna improving anemia reviewed chart and labs and meds Subjective ROS Limited/Unobtainable: Yes Allergies: Coded Allergies: No Known Allergies (Verified , 09/26/12) Objective Last 24 Hour Vital Signs Date Time Temp Pulse Resp B/P (MAP) Pulse Ox O2 Delivery O2 Flow Rate FiO2 07/17/17 04:00 98.3 63 20 109/62 99 Nasal Cannula 4.0 07/17/17 04:00 80 07/17/17 00:00 79 07/17/17 00:00 98.0 84 20 146/83 96 Nasal Cannula 4.0 07/16/17 20:00 83 07/16/17 20:00 98.7 92 16 118/90 96 Nasal Cannula 4.0 07/16/17 16:00 67 07/16/17 16:00 98.1 81 16 153/93 96 Nasal Cannula 4.0 12/22/17 12:30 67 07/16/17 12:00 97.7 80 16 118/89 93 Nasal Cannula 2.0 Intake and Output 07/16/17 07/17/17 19:00 07:00 Intake Total 950 ml 805 ml Output Total 1200 ml 900 ml Balance -250 ml -95 ml Intake Free Water 50 ml 200 ml Tube Feeding 660 ml 605 ml Other 240 ml Output Urine Total 1200 ml 900 ml Laboratory Tests 07/17/17 04:45: White Blood Count 6.7, Red Blood Count 4.07L, Hemoglobin 11.9L, Hematocrit 37.5L , Mean Corpuscular Volume 92, Mean Corpuscular Hemoglobin 29.3, Mean Corpuscular Hemoglobin Concent 31.8L, Red Cell Distribution Width 13.5, Platelet Count 563H, Mean Platelet Volume 7.4, Neutrophils (%) (Auto) 67.3, Lymphocytes (%) (Auto) 16.0L, Monocytes (%) (Auto) 10.1H, Eosinophils (%) (Auto ) 4.9H, Basophils (%) (Auto) 1.7, Sodium Level 138, Potassium Level 4.9, Chloride Level 103, Carbon Dioxide Level 32, Anion Gap 3L, Blood Urea Nitrogen 21H, Creatinine 0.7, Estimat Glomerular Filtration Rate , Glucose Level 158#H, Calcium Level 8.6, Total Bilirubin 0.2, Aspartate Amino Transf (AST/SGOT) 19, Alanine Aminotransferase (ALT/SGPT) 18, Alkaline Phosphatase 92, Total Protein 7.3, Albumin 2.2L, Globulin 5.1, Albumin/Globulin Ratio 0.4L Height (Feet): 6 Weight (Pounds): 174 Sary Oakes MD Jul 17, 2017 09:22
[2017-07-17] MEDS: Docusate 100mg cap ORAL SCH ×2 (10:10→17:25)
[2017-07-17] MEDS: Lactulose 10gm/15ml UDC GT SCH ×3 (10:10→17:25)
--- NOTE | 2017-07-17 11:06 | Infectious Diseases Prog Note ---
"Assessment/Plan Assessment/Plan antibiotics : none A 1. MRSA | pseudomonas UTI s/p rx 2. pseudomonas | enterobacter pneumonia s/p rx 3. + blood cultures with coag neg staph likely contaminated 4. leucocytosis resolved 5. respiratory failure P 1. continue off antibiotics Subjective ROS Limited/Unobtainable: Yes Allergies: Coded Allergies: No Known Allergies (Verified , 09/26/12) Objective Vital Signs Last 24 Hour Vital Signs Date Time Temp Pulse Resp B/P (MAP) Pulse Ox O2 Delivery O2 Flow Rate FiO2 07/17/17 08:00 85 07/17/17 08:00 97.8 96 20 106/85 98 Nasal Cannula 4.0 07/17/17 04:00 98.3 63 20 109/62 99 Nasal Cannula 4.0 07/17/17 04:00 80 07/17/17 00:00 79 07/17/17 00:00 98.0 84 20 146/83 96 Nasal Cannula 4.0 07/16/17 20:00 83 07/16/17 20:00 98.7 92 16 118/90 96 Nasal Cannula 4.0 07/16/17 16:00 67 07/16/17 16:00 98.1 81 16 153/93 96 Nasal Cannula 4.0 07/16/17 12:30 67 07/16/17 12:00 97.7 80 16 118/89 93 Nasal Cannula 2.0 Height (Feet): 6 Weight (Pounds): 174 Respiratory/Chest: lungs clear Cardiovascular: normal rate, regular rhythm, no gallop/murmur Abdomen: soft, non tender, other - GT, SPC Extremities: no edema Laboratory Tests Test 07/17/17 04:45 White Blood Count 6.7 K/UL (4.8-10.8) Red Blood Count 4.07 M/UL (4.70-6.10) L Hemoglobin 11.9 G/DL (14.2-18.0) L Hematocrit 37.5 % (42.0-52.0) L Mean Corpuscular Volume 92 FL (80-99) Mean Corpuscular Hemoglobin 29.3 PG (27.0-31.0) Mean Corpuscular Hemoglobin Concent 31.8 G/DL (32.0-36.0) L Red Cell Distribution Width 13.5 % (11.6-14.8) Platelet Count 563 K/UL (150-450) H Mean Platelet Volume 7.4 FL (6.5-10.1) Neutrophils (%) (Auto) 67.3 % (45.0-75.0) Lymphocytes (%) (Auto) 16.0 % (20.0-45.0) L Monocytes (%) (Auto) 10.1 % (1.0-10.0) H Eosinophils (%) (Auto) 4.9 % (0.0-3.0) H Basophils (%) (Auto) 1.7 % (0.0-2.0) Sodium Level 138 MMOL/L (136-145) Potassium Level 4.9 MMOL/L (3.5-5.1) Chloride Level 103 MMOL/L (98-107) Carbon Dioxide Level 32 MMOL/L (21-32) Anion Gap 3 mmol/L (5-15) L Blood Urea Nitrogen 21 mg/dL (7-18) H Creatinine 0.7 MG/DL (0.55-1.30) Estimat Glomerular Filtration Rate mL/min (>60) Glucose Level 158 MG/DL (74-106) #H Calcium Level 8.6 MG/DL (8.5-10.1) Total Bilirubin 0.2 MG/DL (0.2-1.0) Aspartate Amino Transf (AST/SGOT) 19 U/L (15-37) Alanine Aminotransferase (ALT/SGPT) 18 U/L (12-78) Alkaline Phosphatase 92 U/L (46-116) Total Protein 7.3 G/DL (6.4-8.2) Albumin 2.2 G/DL (3.4-5.0) L Globulin 5.1 g/dL Albumin/Globulin Ratio 0.4 (1.0-2.7) L ANNALISA GUTIÉRREZ Jul 17, 2017 11:06"
[2017-07-17 12:00] VITALS: BP 113/55
--- NOTE | 2017-07-17 12:17 | Nephrology Progress Note ---
Assessment/Plan Problem List: (1) Respiratory distress (2) Suprapubic catheter (3) Septic shock (4) Electrolyte abnormality Assessment post extubation- Improved HypoKalemia- resolved Respiratory Failure on Vent now extubated Septic shock / Pneumonia / UTI Oliguria due to low BP Prostate cancer with suprapubic catheter. Severe Alzheimer dementia. Severe protein-calorie malnutrition. Anemia. Hyperglycemia. Plan Plan: stable from renal stand point per consultants FLuid challenge- Cortisol level wnl Antibiotics pulmonary support K supplements Per order Subjective ROS Limited/Unobtainable: No Constitutional: Reports: malaise, weakness Objective Objective Last 24 Hour Vital Signs Date Time Temp Pulse Resp B/P (MAP) Pulse Ox O2 Delivery O2 Flow Rate FiO2 07/17/17 08:00 85 07/17/17 08:00 97.8 96 20 106/85 98 Nasal Cannula 4.0 07/17/17 04:00 98.3 63 20 109/62 99 Nasal Cannula 4.0 07/17/17 04:00 80 07/17/17 00:00 79 07/17/17 00:00 98.0 84 20 146/83 96 Nasal Cannula 4.0 07/16/17 20:00 83 07/16/17 20:00 98.7 92 16 118/90 96 Nasal Cannula 4.0 07/16/17 16:00 67 07/16/17 16:00 98.1 81 16 153/93 96 Nasal Cannula 4.0 07/16/17 12:30 67 Intake and Output 07/16/17 07/17/17 19:00 07:00 Intake Total 950 ml 805 ml Output Total 1200 ml 900 ml Balance -250 ml -95 ml Intake Free Water 50 ml 200 ml Tube Feeding 660 ml 605 ml Other 240 ml Output Urine Total 1200 ml 900 ml Laboratory Tests 07/17/17 04:45: White Blood Count 6.7, Red Blood Count 4.07L, Hemoglobin 11.9L, Hematocrit 37.5L , Mean Corpuscular Volume 92, Mean Corpuscular Hemoglobin 29.3, Mean Corpuscular Hemoglobin Concent 31.8L, Red Cell Distribution Width 13.5, Platelet Count 563H, Mean Platelet Volume 7.4, Neutrophils (%) (Auto) 67.3, Lymphocytes (%) (Auto) 16.0L, Monocytes (%) (Auto) 10.1H, Eosinophils (%) (Auto ) 4.9H, Basophils (%) (Auto) 1.7, Sodium Level 138, Potassium Level 4.9, Chloride Level 103, Carbon Dioxide Level 32, Anion Gap 3L, Blood Urea Nitrogen 21H, Creatinine 0.7, Estimat Glomerular Filtration Rate , Glucose Level 158#H, Calcium Level 8.6, Total Bilirubin 0.2, Aspartate Amino Transf (AST/SGOT) 19, Alanine Aminotransferase (ALT/SGPT) 18, Alkaline Phosphatase 92, Total Protein 7.3, Albumin 2.2L, Globulin 5.1, Albumin/Globulin Ratio 0.4L Height (Feet): 6 Weight (Pounds): 174 Objective no other change FAITH SEARS Jul 17, 2017 12:17
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
--- NOTE | 2017-07-17 15:54 | Wound Care Consultation ---
Wound Assessment Wound Assessment #1: Wound Number: 1 Wound Present on Admission: No New Wound: Yes Status Change of Wound: No Wound Location Body Site Modif: right, lateral Wound Location Body Site: leg Wound Type: scab - scattered scabs Bruce Test: Does not Bruce Wound Thickness: Partial Thickness Percent of Wound Black/Brown: 100 - dry intact scabs Wound Drainage Amount: None Wound Drainage Odor: None/Absent Tissue Surrounding Wound: Intact Wound General Appearance: Clean/Dry Wound Assessment #2: Wound Number: 2 Wound Present on Admission: No New Wound: Yes Status Change of Wound: No Wound Location Body Site Modif: right, lateral Wound Location Body Site: malleolus/ankle Wound Type: pressure ulcer Bruce Test: Does not Bruce Pressure Ulcer Stage: I Wound Length: 2.0 Wound Width: 2.0 Percent of Wound New Point/Red: 100 Wound Drainage Amount: None Wound Drainage Odor: None/Absent Tissue Surrounding Wound: Intact Wound General Appearance: Reddened Wound Assessment #3: Wound Number: 3 Wound Present on Admission: No New Wound: Yes Status Change of Wound: No Wound Location Body Site Modif: left, upper Wound Location Body Site: ear - ear fold pt has 02 cannula Wound Type: pressure ulcer Bruce Test: Does not Bruce Pressure Ulcer Stage: I Wound Length: 0.5 Wound Width: 0.5 Percent of Wound New Point/Red: 100 Wound Drainage Amount: None Wound Drainage Odor: None/Absent Tissue Surrounding Wound: Intact Wound General Appearance: Reddened Wound Assessment #4: Wound Number: 4 Wound Present on Admission: No New Wound: Yes Status Change of Wound: No Wound Location Body Site Modif: right, upper Wound Location Body Site: ear - ear fold pt has 02 cannula Wound Type: pressure ulcer Bruce Test: Does not Bruce Wound Length: 0.5 Wound Width: 0.5 Percent of Wound New Point/Red: 100 Wound Drainage Amount: None Wound Drainage Odor: None/Absent Tissue Surrounding Wound: Intact Wound General Appearance: Reddened Wound Comment #1 right lateral lower leg scattered dry scabs. #2 right lateral malleolus pressure ulcer stage 1. #3 left upper ear fold stage 1 pressure ulcer. #4 right upper ear fold stage 1 pressure ulcer. Recommendation. -Local wound care as ordered. -Offload, avoid pressure , provide cushion, gauze to 02 cannula -Offload malleolus with pillows, provide heel protectors. -Assess and notify MD if any further change of condition to skin is noted. YOUNG EDWARD Jul 17, 2017 15:54
[2017-07-17 16:00] VITALS: BP 141/68
[2017-07-17] MEDS ORDERED: NS 275ml ONE ×2 (17:33→17:40)
--- NOTE | 2017-07-17 18:22 | Pulmonology Progress Note ---
Assessment/Plan Assessment/Plan 1. Respiratory failure, resolved 2. Sepsis with shock, resolved 3. Pneumonia. 4. Anuria, resolved 5. Prostate cancer with suprapubic catheter. 6. Severe Alzheimer dementia. 7. Severe protein-calorie malnutrition. 8. Anemia. 9. Possible acute myocardial infarction. 10. Azotemia. 11. Hyperglycemia. monitor respiratory status closely nebs and suction nPO and NGT feeds only aspriation precuations cxr wednesday may need thoracentiss diuresis as toleated abx per ID check AM labs prognosis guarded Subjective ROS Limited/Unobtainable: Yes Allergies: Coded Allergies: No Known Allergies (Verified , 09/26/12) Subjective obtunded tolerating tf no fever positive cough nonambulatory Objective Last 24 Hour Vital Signs Date Time Temp Pulse Resp B/P (MAP) Pulse Ox O2 Delivery O2 Flow Rate FiO2 07/17/17 16:00 98.6 92 22 141/68 92 Nasal Cannula 4.0 07/17/17 16:00 75 07/17/17 12:00 96.3 90 26 113/55 96 Nasal Cannula 4.0 07/17/17 12:00 62 07/17/17 08:00 85 07/17/17 08:00 97.8 96 20 106/85 98 Nasal Cannula 4.0 07/17/17 06:40 Nasal Cannula 3.0 32 07/17/17 06:40 99 Nasal Cannula 3.0 32 07/17/17 04:00 98.3 63 20 109/62 99 Nasal Cannula 4.0 07/17/17 04:00 80 07/17/17 00:00 79 07/17/17 00:00 98.0 84 20 146/83 96 Nasal Cannula 4.0 07/16/17 20:00 83 07/16/17 20:00 98.7 92 16 118/90 96 Nasal Cannula 4.0 Intake and Output 07/16/17 07/17/17 19:00 07:00 Intake Total 950 ml 860 ml Output Total 1200 ml 900 ml Balance -250 ml -40 ml Intake Free Water 50 ml 200 ml Tube Feeding 660 ml 660 ml Other 240 ml Output Urine Total 1200 ml 900 ml General Appearance: cachetic HEENT: normocephalic, atraumatic Respiratory/Chest: rhonchi Cardiovascular: normal rate, regular rhythm, murmur systolic Abdomen: soft, non tender, no organomegaly Extremities: other - edema Skin: lesions Neurologic/Psychiatric: disoriented, unresponsiveness, aphasia Laboratory Tests 07/17/17 04:45: White Blood Count 6.7, Red Blood Count 4.07L, Hemoglobin 11.9L, Hematocrit 37.5L , Mean Corpuscular Volume 92, Mean Corpuscular Hemoglobin 29.3, Mean Corpuscular Hemoglobin Concent 31.8L, Red Cell Distribution Width 13.5, Platelet Count 563H, Mean Platelet Volume 7.4, Neutrophils (%) (Auto) 67.3, Lymphocytes (%) (Auto) 16.0L, Monocytes (%) (Auto) 10.1H, Eosinophils (%) (Auto ) 4.9H, Basophils (%) (Auto) 1.7, Sodium Level 138, Potassium Level 4.9, Chloride Level 103, Carbon Dioxide Level 32, Anion Gap 3L, Blood Urea Nitrogen 21H, Creatinine 0.7, Estimat Glomerular Filtration Rate , Glucose Level 158#H, Calcium Level 8.6, Total Bilirubin 0.2, Aspartate Amino Transf (AST/SGOT) 19, Alanine Aminotransferase (ALT/SGPT) 18, Alkaline Phosphatase 92, Total Protein 7.3, Albumin 2.2L, Globulin 5.1, Albumin/Globulin Ratio 0.4L Current Medications Medications (Trade) Dose Ordered Sig/Matt Route PRN Reason Start Time Stop Time Status Last Admin Dose Admin Acetaminophen (Tylenol) 650 mg Q4H PRN GT Mild Pain (1-3) 07/16/17 11:00 08/01/17 18:59 Aspirin (ASA) 81 mg DAILY GT 07/17/17 09:00 08/02/17 08:59 07/17/17 08:38 Dextrose (Dextrose 50%) STAT PRN IV Hypoglycemia 07/16/17 11:00 08/01/17 10:59 Docusate Sodium (Colace) 100 mg TWICE A DAY ORAL 07/17/17 09:00 08/16/17 08:59 07/17/17 17:25 Enoxaparin Sodium (Lovenox) 80 mg Q12HR SUBQ 07/16/17 21:00 08/08/17 20:59 07/17/17 08:41 Insulin Aspart (NovoLOG) Q6HR SUBQ 07/16/17 12:00 08/01/17 20:59 07/17/17 17:26 Insulin Detemir (Levemir) 10 units Q12HR SUBQ 07/16/17 21:00 08/15/17 20:59 07/17/17 08:40 Lactulose (Cephulac) 10 gm THREE TIMES A DAY GT 07/17/17 10:00 08/16/17 09:59 07/17/17 17:25 Midodrine (Pro-Amatine) 10 mg THREE TIMES A DAY GT 07/16/17 13:00 08/10/17 12:59 07/17/17 17:25 Ondansetron HCl (Zofran) 4 mg Q6H PRN GT Nausea & Vomiting 07/16/17 11:00 08/01/17 10:59 Pantoprazole (Protonix) 40 mg DAILY IV 07/17/17 09:00 08/02/17 08:59 07/17/17 08:38 Polyethylene Glycol (Miralax) 17 gm DAILYPRN PRN ORAL Constipation 07/17/17 08:45 08/16/17 08:44 07/17/17 17:25 Vitamin A/Vitamin D (A & D Oint) 1 applic EVERY 12 HOURS TOPIC 07/16/17 21:00 08/03/17 20:59 07/17/17 08:41 ROEL SANTO DO Jul 17, 2017 18:22
[2017-07-17 20:00] VITALS: BP 127/98
--- NOTE | 2017-07-17 20:53 | General Progress Note ---
Assessment/Plan Assessment/Plan ASSESSMENT AND RECOMMENDATIONS: 1. OB positive? Will repeat. H/H stable and improving 2. Prostate cancer, controlled at this time. Current PSA of 5.6. With suprapubic catheter 3. Leukocytosis, secondary to underlying infection, infiltrates noted.ID following. --> wbc count has normalized. Off abx 4. Anemia, rule out gastrointestinal bleed. Ferritin wnl. H/H stable at this time 5. Sepsis resolved Subjective Allergies: Coded Allergies: No Known Allergies (Verified , 09/26/12) All Systems: reviewed and negative except above Subjective NAD Objective Last 24 Hour Vital Signs Date Time Temp Pulse Resp B/P (MAP) Pulse Ox O2 Delivery O2 Flow Rate FiO2 07/17/17 16:00 98.6 92 22 141/68 92 Nasal Cannula 4.0 07/17/17 16:00 75 07/17/17 12:00 96.3 90 26 113/55 96 Nasal Cannula 4.0 07/17/17 12:00 62 07/17/17 08:00 85 07/17/17 08:00 97.8 96 20 106/85 98 Nasal Cannula 4.0 07/17/17 06:40 Nasal Cannula 3.0 32 07/17/17 06:40 99 Nasal Cannula 3.0 32 07/17/17 04:00 98.3 63 20 109/62 99 Nasal Cannula 4.0 07/17/17 04:00 80 07/17/17 00:00 79 07/17/17 00:00 98.0 84 20 146/83 96 Nasal Cannula 4.0 Intake and Output 07/16/17 07/17/17 19:00 07:00 Intake Total 950 ml 860 ml Output Total 1200 ml 900 ml Balance -250 ml -40 ml Intake Free Water 50 ml 200 ml Tube Feeding 660 ml 660 ml Other 240 ml Output Urine Total 1200 ml 900 ml Laboratory Tests 07/17/17 04:45: White Blood Count 6.7, Red Blood Count 4.07L, Hemoglobin 11.9L, Hematocrit 37.5L , Mean Corpuscular Volume 92, Mean Corpuscular Hemoglobin 29.3, Mean Corpuscular Hemoglobin Concent 31.8L, Red Cell Distribution Width 13.5, Platelet Count 563H, Mean Platelet Volume 7.4, Neutrophils (%) (Auto) 67.3, Lymphocytes (%) (Auto) 16.0L, Monocytes (%) (Auto) 10.1H, Eosinophils (%) (Auto ) 4.9H, Basophils (%) (Auto) 1.7, Sodium Level 138, Potassium Level 4.9, Chloride Level 103, Carbon Dioxide Level 32, Anion Gap 3L, Blood Urea Nitrogen 21H, Creatinine 0.7, Estimat Glomerular Filtration Rate , Glucose Level 158#H, Calcium Level 8.6, Total Bilirubin 0.2, Aspartate Amino Transf (AST/SGOT) 19, Alanine Aminotransferase (ALT/SGPT) 18, Alkaline Phosphatase 92, Total Protein 7.3, Albumin 2.2L, Globulin 5.1, Albumin/Globulin Ratio 0.4L Height (Feet): 6 Weight (Pounds): 174 General Appearance: no apparent distress EENT: TMs normal Neck: normal alignment Cardiovascular: normal peripheral pulses Respiratory/Chest: chest wall non-tender Neurologic: trauma nurse II-XII grossly normal Skin: normal pigmentation Jose Luis Rendon Jul 17, 2017 20:53
[2017-07-18] VITALS: BP 123/70
[2017-07-18] MEDS: NovoLOG Insulin Flexpen SUBQ SCH ×4 (00:23→17:47)
[2017-07-18 04:00] VITALS: BP 132/70
--- NOTE | 2017-07-18 07:28 | Infectious Diseases Prog Note ---
Assessment/Plan Assessment/Plan A; Septic Shock resolved Complicated UTI with MRSA & pseudomonas s/p RX Pneumonia treated for 10 days CoANS in blood likely contamination Acute respiratory failure improved MRSA colonization P; observe off antibiotic Subjective ROS Limited/Unobtainable: Yes Allergies: Coded Allergies: No Known Allergies (Verified , 09/26/12) Objective Vital Signs Last 24 Hour Vital Signs Date Time Temp Pulse Resp B/P (MAP) Pulse Ox O2 Delivery O2 Flow Rate FiO2 07/18/17 04:00 97.8 85 20 132/70 95 Nasal Cannula 4.0 07/18/17 03:44 85 07/18/17 00:00 97.9 83 21 123/70 93 Nasal Cannula 4.0 07/18/17 00:00 72 07/17/17 20:47 80 07/17/17 20:00 98.2 152 24 127/98 96 Nasal Cannula 4.0 07/17/17 16:00 98.6 92 22 141/68 92 Nasal Cannula 4.0 07/17/17 16:00 75 07/17/17 12:00 96.3 90 26 113/55 96 Nasal Cannula 4.0 07/17/17 12:00 62 07/17/17 08:00 85 07/17/17 08:00 97.8 96 20 106/85 98 Nasal Cannula 4.0 Height (Feet): 6 Weight (Pounds): 172 General Appearance: no acute distress HEENT: mucous membranes moist Respiratory/Chest: lungs clear Cardiovascular: normal rate Abdomen: soft, non tender, other - GT feeding Genitourinary: other - suprapubic catheter Neurologic/Psychiatric: aphasia Current Medications Medications (Trade) Dose Ordered Sig/Matt Route PRN Reason Start Time Stop Time Status Last Admin Dose Admin Acetaminophen (Tylenol) 650 mg Q4H PRN GT Mild Pain (1-3) 07/16/17 11:00 08/01/17 18:59 Aspirin (ASA) 81 mg DAILY GT 07/17/17 09:00 08/02/17 08:59 07/17/17 08:38 Dextrose (Dextrose 50%) STAT PRN IV Hypoglycemia 07/16/17 11:00 08/01/17 10:59 Docusate Sodium (Colace) 100 mg TWICE A DAY ORAL 07/17/17 09:00 08/16/17 08:59 07/17/17 17:25 Enoxaparin Sodium (Lovenox) 80 mg Q12HR SUBQ 07/16/17 21:00 08/08/17 20:59 07/17/17 21:25 Insulin Aspart (NovoLOG) Q6HR SUBQ 07/16/17 12:00 08/01/17 20:59 07/18/17 00:23 Insulin Detemir (Levemir) 10 units Q12HR SUBQ 07/16/17 21:00 08/15/17 20:59 07/17/17 21:26 Lactulose (Cephulac) 10 gm THREE TIMES A DAY GT 07/17/17 10:00 08/16/17 09:59 07/17/17 17:25 Midodrine (Pro-Amatine) 10 mg THREE TIMES A DAY GT 07/16/17 13:00 08/10/17 12:59 07/17/17 17:25 Ondansetron HCl (Zofran) 4 mg Q6H PRN GT Nausea & Vomiting 07/16/17 11:00 08/01/17 10:59 Pantoprazole (Protonix) 40 mg DAILY IV 07/17/17 09:00 08/02/17 08:59 07/17/17 08:38 Polyethylene Glycol (Miralax) 17 gm DAILYPRN PRN ORAL Constipation 07/17/17 08:45 08/16/17 08:44 07/17/17 17:25 Vitamin A/Vitamin D (A & D Oint) 1 applic EVERY 12 HOURS TOPIC 07/16/17 21:00 08/03/17 20:59 07/17/17 21:26 BREANNE CERVANTES Jul 18, 2017 07:28
[2017-07-18 08:00] VITALS: BP 107/68
[2017-07-18] MEDS: Pantoprazole Inj IV SCH (09:27)
[2017-07-18] MEDS: Docusate 100mg cap ORAL SCH (09:28)
[2017-07-18] MEDS: Midodrine 10mg tab GT SCH ×3 (09:28→17:12)
[2017-07-18] MEDS: Lactulose 10gm/15ml UDC GT SCH ×3 (09:28→17:45)
[2017-07-18] MEDS: Aspirin Baby 81mg GT SCH (09:28)
[2017-07-18] MEDS: Vitamin A&D Oint 2oz Tube TOPIC SCH ×2 (09:29→21:17)
[2017-07-18] MEDS: Enoxaparin 80mg Inj SUBQ SCH ×2 (09:30→21:16)
[2017-07-18] MEDS: Levemir Flexpen SUBQ SCH ×2 (09:30→21:16)
--- NOTE | 2017-07-18 10:18 | Nephrology Progress Note ---
Assessment/Plan Problem List: (1) Respiratory distress (2) Suprapubic catheter (3) Septic shock (4) Electrolyte abnormality Assessment post extubation- Improved HypoKalemia- resolved Respiratory Failure on Vent now extubated Septic shock / Pneumonia / UTI Oliguria due to low BP Prostate cancer with suprapubic catheter. Severe Alzheimer dementia. Severe protein-calorie malnutrition. Anemia. Hyperglycemia. Plan Plan: stable from renal stand point per consultants FLuid challenge- Cortisol level wnl Antibiotics pulmonary support K supplements Per order Subjective ROS Limited/Unobtainable: No Constitutional: Reports: malaise Objective Objective Last 24 Hour Vital Signs Date Time Temp Pulse Resp B/P (MAP) Pulse Ox O2 Delivery O2 Flow Rate FiO2 07/18/17 08:00 96.8 96 20 107/68 100 Nasal Cannula 4.0 07/18/17 06:48 99 Nasal Cannula 3.0 32 07/18/17 06:48 Nasal Cannula 3.0 32 07/18/17 04:00 97.8 85 20 132/70 95 Nasal Cannula 4.0 07/18/17 03:44 85 07/18/17 00:00 97.9 83 21 123/70 93 Nasal Cannula 4.0 07/18/17 00:00 72 07/17/17 20:47 80 07/17/17 20:00 98.2 152 24 127/98 96 Nasal Cannula 4.0 07/17/17 16:00 98.6 92 22 141/68 92 Nasal Cannula 4.0 07/17/17 16:00 75 07/17/17 12:00 96.3 90 26 113/55 96 Nasal Cannula 4.0 07/17/17 12:00 62 Intake and Output 07/17/17 07/18/17 19:00 07:00 Intake Total 690 ml 705 ml Output Total 1100 ml 950 ml Balance -410 ml -245 ml Intake Free Water 100 ml Tube Feeding 660 ml 605 ml Other 30 ml Output Urine Total 1100 ml 950 ml Height (Feet): 6 Weight (Pounds): 172 General Appearance: no apparent distress Objective no other change FAITH SEARS Jul 18, 2017 10:18
[2017-07-18] MEDS ORDERED: NS 275ml ONE (10:46)
[2017-07-18] MEDS ORDERED: Tubing IV Secondary IV ONE (10:46)
--- NOTE | 2017-07-18 10:48 | General Progress Note ---
Assessment/Plan Problem List: (1) G tube feedings ICD Codes: Z93.1 - Gastrostomy status SNOMED: 605794265, 181820978 (2) Diabetes mellitus ICD Codes: E11.9 - Type 2 diabetes mellitus without complications SNOMED: 05870611 (3) Dementia ICD Codes: F03.90 - Unspecified dementia without behavioral disturbance SNOMED: 78045921 (4) Anemia ICD Codes: D64.9 - Anemia, unspecified SNOMED: 442482794 (5) Dysphagia ICD Codes: R13.10 - Dysphagia SNOMED: 36294993 (6) Prostate cancer ICD Codes: C61 - Malignant neoplasm of prostate SNOMED: 946439872 Assessment/Plan GTF monitor H&H ppi for GI prophylaxis bowel regimen Subjective ROS Limited/Unobtainable: No Allergies: Coded Allergies: No Known Allergies (Verified , 09/26/12) Objective Last 24 Hour Vital Signs Date Time Temp Pulse Resp B/P (MAP) Pulse Ox O2 Delivery O2 Flow Rate FiO2 07/18/17 08:00 96.8 96 20 107/68 100 Nasal Cannula 4.0 07/18/17 06:48 99 Nasal Cannula 3.0 32 07/18/17 06:48 Nasal Cannula 3.0 32 07/18/17 04:00 97.8 85 20 132/70 95 Nasal Cannula 4.0 07/18/17 03:44 85 07/18/17 00:00 97.9 83 21 123/70 93 Nasal Cannula 4.0 07/18/17 00:00 72 07/17/17 20:47 80 07/17/17 20:00 98.2 152 24 127/98 96 Nasal Cannula 4.0 07/17/17 16:00 98.6 92 22 141/68 92 Nasal Cannula 4.0 07/17/17 16:00 75 07/17/17 12:00 96.3 90 26 113/55 96 Nasal Cannula 4.0 07/17/17 12:00 62 Intake and Output 07/17/17 07/18/17 19:00 07:00 Intake Total 690 ml 705 ml Output Total 1100 ml 950 ml Balance -410 ml -245 ml Intake Free Water 100 ml Tube Feeding 660 ml 605 ml Other 30 ml Output Urine Total 1100 ml 950 ml Height (Feet): 6 Weight (Pounds): 172 General Appearance: no apparent distress EENT: normal ENT inspection Neck: supple Cardiovascular: normal rate Respiratory/Chest: decreased breath sounds Abdomen: normal bowel sounds, non tender, soft Extremities: non-tender DAVID ESTRADA Jul 18, 2017 10:48
[2017-07-18 12:00] VITALS: BP 124/46
--- NOTE | 2017-07-18 15:05 | Pulmonology Progress Note ---
Assessment/Plan Assessment/Plan 1. Respiratory failure, resolved 2. Sepsis with shock, resolved 3. Pneumonia. 4. Anuria, resolved 5. Prostate cancer with suprapubic catheter. 6. Severe Alzheimer dementia. 7. Severe protein-calorie malnutrition. 8. Anemia. 9. Possible acute myocardial infarction. 10. Azotemia. 11. Hyperglycemia. monitor respiratory status closely nebs and suction nPO and NGT feeds only aspiration precautions cxr wednesday may need thoracenteses diuresis as tolerated abx per ID check AM labs prognosis guarded Subjective ROS Limited/Unobtainable: Yes Allergies: Coded Allergies: No Known Allergies (Verified , 09/26/12) Subjective obtunded tolerating tf no fever positive cough nonambulatory Objective Last 24 Hour Vital Signs Date Time Temp Pulse Resp B/P (MAP) Pulse Ox O2 Delivery O2 Flow Rate FiO2 07/18/17 12:00 71 07/18/17 12:00 98.8 83 21 124/46 95 Nasal Cannula 4.0 07/18/17 08:00 90 07/18/17 08:00 96.8 96 20 107/68 100 Nasal Cannula 4.0 07/18/17 06:48 99 Nasal Cannula 3.0 32 07/18/17 06:48 Nasal Cannula 3.0 32 07/18/17 04:00 97.8 85 20 132/70 95 Nasal Cannula 4.0 07/18/17 03:44 85 07/18/17 00:00 97.9 83 21 123/70 93 Nasal Cannula 4.0 07/18/17 00:00 72 07/17/17 20:47 80 07/17/17 20:00 98.2 152 24 127/98 96 Nasal Cannula 4.0 07/17/17 16:00 98.6 92 22 141/68 92 Nasal Cannula 4.0 07/17/17 16:00 75 Intake and Output 07/17/17 07/18/17 19:00 07:00 Intake Total 690 ml 790 ml Output Total 1100 ml 950 ml Balance -410 ml -160 ml Intake Free Water 130 ml Tube Feeding 660 ml 660 ml Other 30 ml Output Urine Total 1100 ml 950 ml General Appearance: WD/WN Respiratory/Chest: rhonchi Cardiovascular: normal rate, regular rhythm, murmur systolic Abdomen: soft, non tender, no organomegaly Extremities: other - edema Neurologic/Psychiatric: sensory deficit, unresponsiveness, aphasia Current Medications Medications (Trade) Dose Ordered Sig/Matt Route PRN Reason Start Time Stop Time Status Last Admin Dose Admin Acetaminophen (Tylenol) 650 mg Q4H PRN GT Mild Pain (1-3) 07/16/17 11:00 08/01/17 18:59 Aspirin (ASA) 81 mg DAILY GT 07/17/17 09:00 08/02/17 08:59 07/18/17 09:28 Dextrose (Dextrose 50%) STAT PRN IV Hypoglycemia 07/16/17 11:00 08/01/17 10:59 Docusate Sodium (Colace) 100 mg TWICE A DAY GT 07/18/17 18:00 08/17/17 17:59 Enoxaparin Sodium (Lovenox) 80 mg Q12HR SUBQ 07/16/17 21:00 08/08/17 20:59 07/18/17 09:30 Insulin Aspart (NovoLOG) Q6HR SUBQ 07/16/17 12:00 08/01/17 20:59 07/18/17 12:31 Insulin Detemir (Levemir) 10 units Q12HR SUBQ 07/16/17 21:00 08/15/17 20:59 07/18/17 09:30 Lactulose (Cephulac) 10 gm THREE TIMES A DAY GT 07/17/17 10:00 08/16/17 09:59 07/18/17 12:28 Midodrine (Pro-Amatine) 10 mg THREE TIMES A DAY GT 07/16/17 13:00 08/10/17 12:59 07/18/17 09:28 Ondansetron HCl (Zofran) 4 mg Q6H PRN GT Nausea & Vomiting 07/16/17 11:00 08/01/17 10:59 Pantoprazole (Protonix) 40 mg DAILY IV 07/17/17 09:00 08/02/17 08:59 07/18/17 09:27 Polyethylene Glycol (Miralax) 17 gm DAILYPRN PRN ORAL Constipation 07/17/17 08:45 08/16/17 08:44 07/17/17 17:25 Vitamin A/Vitamin D (A & D Oint) 1 applic EVERY 12 HOURS TOPIC 07/16/17 21:00 08/03/17 20:59 07/18/17 09:29 ROEL SANTO DO Jul 18, 2017 15:05
[2017-07-18 16:00] VITALS: BP 129/85
[2017-07-18] MEDS: Docusate 100mg/10ml Liq GT SCH (17:45)
[2017-07-18 20:00] VITALS: BP 130/55
--- NOTE | 2017-07-18 22:14 | General Progress Note ---
Assessment/Plan Problem List: (1) COPD (chronic obstructive pulmonary disease) ICD Codes: J44.9 - Chronic obstructive pulmonary disease SNOMED: 03162770 (2) Suprapubic catheter ICD Codes: Z93.59 - Other cystostomy status SNOMED: 761746499, 221713340 (3) Catheter-associated urinary tract infection ICD Codes: T83.511A - Infection and inflammatory reaction due to indwelling urethral catheter, initial encounter; N39.0 - Urinary tract infection, site not specified SNOMED: 188964346 (4) Anemia ICD Codes: D64.9 - Anemia, unspecified SNOMED: 120537886 (5) Dementia ICD Codes: F03.90 - Unspecified dementia without behavioral disturbance SNOMED: 66897936 (6) Seizure ICD Codes: R56.9 - Unspecified convulsions SNOMED: 94411407 (7) Prostate cancer ICD Codes: C61 - Malignant neoplasm of prostate SNOMED: 902878794 (8) COPD (chronic obstructive pulmonary disease) ICD Codes: J44.9 - Chronic obstructive pulmonary disease, unspecified SNOMED: 80025134 (9) Respiratory distress ICD Codes: R06.03 - Acute respiratory distress SNOMED: 270020394 (10) Sepsis ICD Codes: A41.9 - Sepsis, unspecified organism SNOMED: 84557606 Status: progressing Assessment/Plan s/p extubation afebrile seizure none today prostate ca sepsis and pna stable abx per id reviewed chart and labs and meds Subjective ROS Limited/Unobtainable: Yes Allergies: Coded Allergies: No Known Allergies (Verified , 09/26/12) Objective Last 24 Hour Vital Signs Date Time Temp Pulse Resp B/P (MAP) Pulse Ox O2 Delivery O2 Flow Rate FiO2 07/18/17 20:00 98.9 92 20 130/55 98 Nasal Cannula 4.0 07/18/17 16:00 72 07/18/17 16:00 98.2 92 20 129/85 95 Nasal Cannula 4.0 07/18/17 12:00 71 07/18/17 12:00 98.8 83 21 124/46 95 Nasal Cannula 4.0 07/18/17 08:00 90 07/18/17 08:00 96.8 96 20 107/68 100 Nasal Cannula 4.0 07/18/17 06:48 99 Nasal Cannula 3.0 32 07/18/17 06:48 Nasal Cannula 3.0 32 07/18/17 04:00 97.8 85 20 132/70 95 Nasal Cannula 4.0 07/18/17 03:44 85 07/18/17 00:00 97.9 83 21 123/70 93 Nasal Cannula 4.0 07/18/17 00:00 72 Intake and Output 07/17/17 07/18/17 19:00 07:00 Intake Total 690 ml 790 ml Output Total 1100 ml 950 ml Balance -410 ml -160 ml Intake Free Water 130 ml Tube Feeding 660 ml 660 ml Other 30 ml Output Urine Total 1100 ml 950 ml Height (Feet): 6 Weight (Pounds): 172 Neck: supple Respiratory/Chest: lungs clear Abdomen: soft Sary Oakes MD Jul 18, 2017 22:13
[2017-07-19] VITALS (7 sets, daily range): BP systolic 117–153; BP diastolic 62–87
[2017-07-19] MEDS: NovoLOG Insulin Flexpen SUBQ SCH ×4 (00:11→17:44)
[2017-07-19 05:02] LABS: EOSINOPHILS % (AUTO) 8.1 % (0.0-3.0); MEAN CORPUSCULAR HEMOGLOBIN 29.3 PG (27.0-31.0); MEAN CORPUSCULAR VOLUME 92 FL (80-99); MEAN PLATELET VOLUME 7.3 FL (6.5-10.1); PLATELET COUNT 539 K/UL (150-450); RED BLOOD COUNT 3.49 M/UL (4.70-6.10); RED CELL DISTRIBUTION WIDTH 13.5 % (11.6-14.8); WHITE BLOOD COUNT 7.5 K/UL (4.8-10.8)
[2017-07-19 05:28] LABS: ANION GAP 3 mmol/L (5-15); CALCIUM 8.8 MG/DL (8.5-10.1); CARBON DIOXIDE 32 MMOL/L (21-32); CHLORIDE 103 MMOL/L (98-107); CREATININE 0.8 MG/DL (0.55-1.30); POTASSIUM 4.9 MMOL/L (3.5-5.1); SODIUM 138 MMOL/L (136-145)
[2017-07-19] MEDS: Midodrine 10mg tab GT SCH ×3 (08:07→17:35)
[2017-07-19] MEDS: Lactulose 10gm/15ml UDC GT SCH ×3 (08:07→17:35)
[2017-07-19] MEDS: Docusate 100mg/10ml Liq GT SCH ×2 (08:07→17:35)
[2017-07-19] MEDS: Aspirin Baby 81mg GT SCH (08:07)
[2017-07-19] MEDS: Pantoprazole Inj IV SCH (08:07)
[2017-07-19] MEDS: Vitamin A&D Oint 2oz Tube TOPIC SCH ×2 (08:08→20:46)
[2017-07-19] MEDS: Enoxaparin 80mg Inj SUBQ SCH ×2 (08:15→20:46)
[2017-07-19] MEDS: Levemir Flexpen SUBQ SCH ×2 (08:16→20:44)
--- NOTE | 2017-07-19 08:18 | Infectious Diseases Prog Note ---
Assessment/Plan Assessment/Plan A; Septic Shock resolved Complicated UTI with MRSA & pseudomonas s/p RX Pneumonia treated CoANS in blood likely contamination Acute respiratory failure improved MRSA colonization P; observe off antibiotic Frequent suctioning Subjective ROS Limited/Unobtainable: Yes Respiratory: Reports: productive cough Allergies: Coded Allergies: No Known Allergies (Verified , 09/26/12) Objective Vital Signs Last 24 Hour Vital Signs Date Time Temp Pulse Resp B/P (MAP) Pulse Ox O2 Delivery O2 Flow Rate FiO2 07/19/17 04:00 98.7 93 20 153/64 99 Nasal Cannula 4.0 07/19/17 03:55 76 07/19/17 00:00 98.6 89 20 150/62 98 Nasal Cannula 4.0 07/18/17 20:39 85 07/18/17 20:00 98.9 92 20 130/55 98 Nasal Cannula 4.0 07/18/17 20:00 98.9 92 20 130/55 98 Nasal Cannula 4.0 07/18/17 16:00 72 07/18/17 16:00 98.2 92 20 129/85 95 Nasal Cannula 4.0 07/18/17 12:00 71 07/18/17 12:00 98.8 83 21 124/46 95 Nasal Cannula 4.0 Height (Feet): 6 Weight (Pounds): 174 General Appearance: no acute distress HEENT: other - O2 by nasal cannula Respiratory/Chest: rhonchi - bilaterally Cardiovascular: normal rate Abdomen: soft, non tender, other - GT feeding Extremities: no edema Neurologic/Psychiatric: aphasia Laboratory Tests Test 07/19/17 03:50 White Blood Count 7.5 K/UL (4.8-10.8) Red Blood Count 3.49 M/UL (4.70-6.10) L Hemoglobin 10.2 G/DL (14.2-18.0) L Hematocrit 32.0 % (42.0-52.0) L Mean Corpuscular Volume 92 FL (80-99) Mean Corpuscular Hemoglobin 29.3 PG (27.0-31.0) Mean Corpuscular Hemoglobin Concent 32.0 G/DL (32.0-36.0) Red Cell Distribution Width 13.5 % (11.6-14.8) Platelet Count 539 K/UL (150-450) H Mean Platelet Volume 7.3 FL (6.5-10.1) Neutrophils (%) (Auto) 55.0 % (45.0-75.0) Lymphocytes (%) (Auto) 25.0 % (20.0-45.0) Monocytes (%) (Auto) 10.0 % (1.0-10.0) Eosinophils (%) (Auto) 8.1 % (0.0-3.0) H Basophils (%) (Auto) 2.0 % (0.0-2.0) Sodium Level 138 MMOL/L (136-145) Potassium Level 4.9 MMOL/L (3.5-5.1) Chloride Level 103 MMOL/L (98-107) Carbon Dioxide Level 32 MMOL/L (21-32) Anion Gap 3 mmol/L (5-15) L Blood Urea Nitrogen 22 mg/dL (7-18) H Creatinine 0.8 MG/DL (0.55-1.30) Estimat Glomerular Filtration Rate mL/min (>60) Glucose Level 149 MG/DL (74-106) H Calcium Level 8.8 MG/DL (8.5-10.1) Current Medications Medications (Trade) Dose Ordered Sig/Matt Route PRN Reason Start Time Stop Time Status Last Admin Dose Admin Acetaminophen (Tylenol) 650 mg Q4H PRN GT Mild Pain (1-3) 07/16/17 11:00 08/01/17 18:59 Aspirin (ASA) 81 mg DAILY GT 07/17/17 09:00 08/02/17 08:59 07/18/17 09:28 Dextrose (Dextrose 50%) STAT PRN IV Hypoglycemia 07/16/17 11:00 08/01/17 10:59 Docusate Sodium (Colace) 100 mg TWICE A DAY GT 07/18/17 18:00 08/17/17 17:59 07/18/17 17:45 Enoxaparin Sodium (Lovenox) 80 mg Q12HR SUBQ 07/16/17 21:00 08/08/17 20:59 07/18/17 21:16 Insulin Aspart (NovoLOG) Q6HR SUBQ 07/16/17 12:00 08/01/17 20:59 07/19/17 06:05 Insulin Detemir (Levemir) 10 units Q12HR SUBQ 07/16/17 21:00 08/15/17 20:59 07/18/17 21:16 Lactulose (Cephulac) 10 gm THREE TIMES A DAY GT 07/17/17 10:00 08/16/17 09:59 07/18/17 17:45 Midodrine (Pro-Amatine) 10 mg THREE TIMES A DAY GT 07/16/17 13:00 08/10/17 12:59 07/18/17 09:28 Ondansetron HCl (Zofran) 4 mg Q6H PRN GT Nausea & Vomiting 07/16/17 11:00 08/01/17 10:59 Pantoprazole (Protonix) 40 mg DAILY IV 07/17/17 09:00 08/02/17 08:59 07/18/17 09:27 Polyethylene Glycol (Miralax) 17 gm DAILYPRN PRN ORAL Constipation 07/17/17 08:45 08/16/17 08:44 07/17/17 17:25 Vitamin A/Vitamin D (A & D Oint) 1 applic EVERY 12 HOURS TOPIC 07/16/17 21:00 08/03/17 20:59 07/18/17 21:17 BREANNE CERVANTES Jul 19, 2017 08:17
--- NOTE | 2017-07-19 10:27 | General Progress Note ---
Assessment/Plan Problem List: (1) COPD (chronic obstructive pulmonary disease) ICD Codes: J44.9 - Chronic obstructive pulmonary disease SNOMED: 12496770 (2) Suprapubic catheter ICD Codes: Z93.59 - Other cystostomy status SNOMED: 820957151, 475793629 (3) Catheter-associated urinary tract infection ICD Codes: T83.511A - Infection and inflammatory reaction due to indwelling urethral catheter, initial encounter; N39.0 - Urinary tract infection, site not specified SNOMED: 854549214 (4) Anemia ICD Codes: D64.9 - Anemia, unspecified SNOMED: 423729603 (5) Dementia ICD Codes: F03.90 - Unspecified dementia without behavioral disturbance SNOMED: 70283477 (6) Seizure ICD Codes: R56.9 - Unspecified convulsions SNOMED: 79913674 (7) Prostate cancer ICD Codes: C61 - Malignant neoplasm of prostate SNOMED: 716643622 (8) COPD (chronic obstructive pulmonary disease) ICD Codes: J44.9 - Chronic obstructive pulmonary disease, unspecified SNOMED: 67588026 (9) Respiratory distress ICD Codes: R06.03 - Acute respiratory distress SNOMED: 900495603 (10) Sepsis ICD Codes: A41.9 - Sepsis, unspecified organism SNOMED: 81640447 Status: progressing Assessment/Plan s/p extubation couple of days ago full code afebrile seizure none today prostate ca sepsis and pna once stable will dc back to [facility] abx per id Subjective ROS Limited/Unobtainable: Yes Allergies: Coded Allergies: No Known Allergies (Verified , 09/26/12) Objective Last 24 Hour Vital Signs Date Time Temp Pulse Resp B/P (MAP) Pulse Ox O2 Delivery O2 Flow Rate FiO2 07/19/17 08:41 Nasal Cannula 3.0 32 07/19/17 08:40 98 Nasal Cannula 3.0 32 07/19/17 08:00 99.2 102 22 128/69 96 Nasal Cannula 4.0 07/19/17 08:00 102 07/19/17 04:00 98.7 93 20 153/64 99 Nasal Cannula 4.0 07/19/17 03:55 76 07/19/17 00:00 98.6 89 20 150/62 98 Nasal Cannula 4.0 07/18/17 20:39 85 07/18/17 20:00 98.9 92 20 130/55 98 Nasal Cannula 4.0 07/18/17 20:00 98.9 92 20 130/55 98 Nasal Cannula 4.0 07/18/17 16:00 72 07/18/17 16:00 98.2 92 20 129/85 95 Nasal Cannula 4.0 07/18/17 12:00 71 07/18/17 12:00 98.8 83 21 124/46 95 Nasal Cannula 4.0 Intake and Output 07/18/17 07/19/17 19:00 07:00 Intake Total 920 ml 805 ml Output Total 1900 ml 750 ml Balance -980 ml 55 ml Intake Free Water 260 ml 200 ml Tube Feeding 660 ml 605 ml Output Urine Total 1900 ml 750 ml # Bowel Movements 1 Laboratory Tests 07/19/17 03:50: White Blood Count 7.5, Red Blood Count 3.49L, Hemoglobin 10.2L, Hematocrit 32.0L , Mean Corpuscular Volume 92, Mean Corpuscular Hemoglobin 29.3, Mean Corpuscular Hemoglobin Concent 32.0, Red Cell Distribution Width 13.5, Platelet Count 539H, Mean Platelet Volume 7.3, Neutrophils (%) (Auto) 55.0, Lymphocytes ( %) (Auto) 25.0, Monocytes (%) (Auto) 10.0, Eosinophils (%) (Auto) 8.1H, Basophils (%) (Auto) 2.0, Sodium Level 138, Potassium Level 4.9, Chloride Level 103, Carbon Dioxide Level 32, Anion Gap 3L, Blood Urea Nitrogen 22H, Creatinine 0.8, Estimat Glomerular Filtration Rate , Glucose Level 149H, Calcium Level 8.8 Height (Feet): 6 Weight (Pounds): 174 Sary Oakes MD Jul 19, 2017 10:27
--- NOTE | 2017-07-19 10:35 | Nephrology Progress Note ---
Assessment/Plan Problem List: (1) Respiratory distress (2) Suprapubic catheter (3) Septic shock (4) Electrolyte abnormality Assessment stable from renal stand post extubation- Improved HypoKalemia- resolved Respiratory Failure on Vent now extubated Septic shock / Pneumonia / UTI Oliguria due to low BP Prostate cancer with suprapubic catheter. Severe Alzheimer dementia. Severe protein-calorie malnutrition. Anemia. Hyperglycemia. Plan Plan: stable from renal stand point per consultants FLuid challenge- Cortisol level wnl Antibiotics pulmonary support K supplements Per order Subjective ROS Limited/Unobtainable: No Constitutional: Reports: malaise, weakness Objective Objective Last 24 Hour Vital Signs Date Time Temp Pulse Resp B/P (MAP) Pulse Ox O2 Delivery O2 Flow Rate FiO2 07/19/17 08:41 Nasal Cannula 3.0 32 07/19/17 08:40 98 Nasal Cannula 3.0 32 07/19/17 08:00 99.2 102 22 128/69 96 Nasal Cannula 4.0 07/19/17 08:00 102 07/19/17 04:00 98.7 93 20 153/64 99 Nasal Cannula 4.0 07/19/17 03:55 76 07/19/17 00:00 98.6 89 20 150/62 98 Nasal Cannula 4.0 07/18/17 20:39 85 07/18/17 20:00 98.9 92 20 130/55 98 Nasal Cannula 4.0 07/18/17 20:00 98.9 92 20 130/55 98 Nasal Cannula 4.0 07/18/17 16:00 72 07/18/17 16:00 98.2 92 20 129/85 95 Nasal Cannula 4.0 07/18/17 12:00 71 07/18/17 12:00 98.8 83 21 124/46 95 Nasal Cannula 4.0 Intake and Output 07/18/17 07/19/17 19:00 07:00 Intake Total 920 ml 805 ml Output Total 1900 ml 750 ml Balance -980 ml 55 ml Intake Free Water 260 ml 200 ml Tube Feeding 660 ml 605 ml Output Urine Total 1900 ml 750 ml # Bowel Movements 1 Laboratory Tests 07/19/17 03:50: White Blood Count 7.5, Red Blood Count 3.49L, Hemoglobin 10.2L, Hematocrit 32.0L , Mean Corpuscular Volume 92, Mean Corpuscular Hemoglobin 29.3, Mean Corpuscular Hemoglobin Concent 32.0, Red Cell Distribution Width 13.5, Platelet Count 539H, Mean Platelet Volume 7.3, Neutrophils (%) (Auto) 55.0, Lymphocytes ( %) (Auto) 25.0, Monocytes (%) (Auto) 10.0, Eosinophils (%) (Auto) 8.1H, Basophils (%) (Auto) 2.0, Sodium Level 138, Potassium Level 4.9, Chloride Level 103, Carbon Dioxide Level 32, Anion Gap 3L, Blood Urea Nitrogen 22H, Creatinine 0.8, Estimat Glomerular Filtration Rate , Glucose Level 149H, Calcium Level 8.8 Height (Feet): 6 Weight (Pounds): 174 General Appearance: lethargic Cardiovascular: tachycardia, arrhythmia Respiratory/Chest: decreased breath sounds Abdomen: distended Objective no other change FAITH SEARS Jul 19, 2017 10:35
--- NOTE | 2017-07-19 11:22 | Diagnostic Imaging Report ---
Indication: Reason For Exam: COUGH Technique: XRAY Chest 1v Comparison:07/15/2017 Findings: Endotracheal tube has been removed. Heart size is unchanged. Bilateral pleural effusions remain. Palmar vascular prominence remains. Impression: Removal of endotracheal tube. Congestive heart failure and bilateral pleural effusions unchanged from previous study allowing for technique differences.
--- NOTE | 2017-07-19 11:30 | General Progress Note ---
Assessment/Plan Problem List: (1) G tube feedings ICD Codes: Z93.1 - Gastrostomy status SNOMED: 114292448, 024258133 (2) Diabetes mellitus ICD Codes: E11.9 - Type 2 diabetes mellitus without complications SNOMED: 32347921 (3) Dementia ICD Codes: F03.90 - Unspecified dementia without behavioral disturbance SNOMED: 81767509 (4) Anemia ICD Codes: D64.9 - Anemia, unspecified SNOMED: 002602811 (5) Dysphagia ICD Codes: R13.10 - Dysphagia SNOMED: 52461282 (6) Prostate cancer ICD Codes: C61 - Malignant neoplasm of prostate SNOMED: 557229018 Assessment/Plan GTF monitor H&H ppi for GI prophylaxis bowel regimen Subjective ROS Limited/Unobtainable: No Allergies: Coded Allergies: No Known Allergies (Verified , 09/26/12) Subjective nose bleed Objective Last 24 Hour Vital Signs Date Time Temp Pulse Resp B/P (MAP) Pulse Ox O2 Delivery O2 Flow Rate FiO2 07/19/17 08:41 Nasal Cannula 3.0 32 07/19/17 08:40 98 Nasal Cannula 3.0 32 07/19/17 08:00 99.2 102 22 128/69 96 Nasal Cannula 4.0 07/19/17 08:00 102 07/19/17 04:00 98.7 93 20 153/64 99 Nasal Cannula 4.0 07/19/17 03:55 76 07/19/17 00:00 98.6 89 20 150/62 98 Nasal Cannula 4.0 07/18/17 20:39 85 07/18/17 20:00 98.9 92 20 130/55 98 Nasal Cannula 4.0 07/18/17 20:00 98.9 92 20 130/55 98 Nasal Cannula 4.0 07/18/17 16:00 72 07/18/17 16:00 98.2 92 20 129/85 95 Nasal Cannula 4.0 07/18/17 12:00 71 07/18/17 12:00 98.8 83 21 124/46 95 Nasal Cannula 4.0 Intake and Output 07/18/17 07/19/17 19:00 07:00 Intake Total 920 ml 805 ml Output Total 1900 ml 750 ml Balance -980 ml 55 ml Intake Free Water 260 ml 200 ml Tube Feeding 660 ml 605 ml Output Urine Total 1900 ml 750 ml # Bowel Movements 1 Laboratory Tests 07/19/17 03:50: White Blood Count 7.5, Red Blood Count 3.49L, Hemoglobin 10.2L, Hematocrit 32.0L , Mean Corpuscular Volume 92, Mean Corpuscular Hemoglobin 29.3, Mean Corpuscular Hemoglobin Concent 32.0, Red Cell Distribution Width 13.5, Platelet Count 539H, Mean Platelet Volume 7.3, Neutrophils (%) (Auto) 55.0, Lymphocytes ( %) (Auto) 25.0, Monocytes (%) (Auto) 10.0, Eosinophils (%) (Auto) 8.1H, Basophils (%) (Auto) 2.0, Sodium Level 138, Potassium Level 4.9, Chloride Level 103, Carbon Dioxide Level 32, Anion Gap 3L, Blood Urea Nitrogen 22H, Creatinine 0.8, Estimat Glomerular Filtration Rate , Glucose Level 149H, Calcium Level 8.8 Height (Feet): 6 Weight (Pounds): 174 General Appearance: no apparent distress EENT: normal ENT inspection Neck: supple Cardiovascular: normal rate Respiratory/Chest: decreased breath sounds Abdomen: normal bowel sounds, non tender, soft Extremities: non-tender DAVID ESTRADA Jul 19, 2017 11:30
--- NOTE | 2017-07-19 15:00 | Geriatric Medicine Prog Note ---
DATE: 07/18/2017 ENDOCRINOLOGY PROGRESS NOTE SUBJECTIVE: The patient is resting comfortably today. OBJECTIVE: VITAL SIGNS: Blood pressure 123/70, pulse 83, respiratory rate 21, and temperature RESPIRATORY: Clear. CARDIOVASCULAR: Regular rhythm. LABORATORY DATA: Glucose 148. ASSESSMENT: Diabetes mellitus type 2. PLAN: Continue Jevity 1.2 at 55 mL/hour.Sliding scale Novolg Q6hr5s. Matthew Eduardo M.D. DR: WARD JOB#: [id number] CC: SANTOSH
[2017-07-19] MEDS: Albuterol/Ipratropium 3ml neb HHN SCH ×3 (15:27→23:34)
--- NOTE | 2017-07-19 18:48 | General Progress Note ---
Assessment/Plan Assessment/Plan ASSESSMENT AND RECOMMENDATIONS: 1. Prostate cancer, controlled at this time. Current PSA of 5.6. 2. Leukocytosis, secondary to underlying infection, infiltrates noted.ID following. --> wbc count has normalized. Off abx 3. Anemia 2/2 chronic disease. Ferritin wnl. H/H stable at this time 4. Sepsis resolved 5. G tube feeding Subjective Allergies: Coded Allergies: No Known Allergies (Verified , 09/26/12) All Systems: reviewed and negative except above Subjective NAD Objective Last 24 Hour Vital Signs Date Time Temp Pulse Resp B/P (MAP) Pulse Ox O2 Delivery O2 Flow Rate FiO2 07/19/17 16:00 101 07/19/17 16:00 98.8 97 22 150/64 99 Nasal Cannula 4.0 07/19/17 15:36 97 22 98 Nasal Cannula 2.0 28 07/19/17 15:27 95 22 97 Nasal Cannula 2.0 28 07/19/17 12:00 98 07/19/17 12:00 99.1 100 23 138/87 97 Nasal Cannula 4.0 07/19/17 08:41 Nasal Cannula 3.0 32 07/19/17 08:40 98 Nasal Cannula 3.0 32 07/19/17 08:00 99.2 102 22 128/69 96 Nasal Cannula 4.0 07/19/17 08:00 102 07/19/17 04:00 98.7 93 20 153/64 99 Nasal Cannula 4.0 07/19/17 03:55 76 07/19/17 00:00 98.6 89 20 150/62 98 Nasal Cannula 4.0 07/18/17 20:39 85 07/18/17 20:00 98.9 92 20 130/55 98 Nasal Cannula 4.0 07/18/17 20:00 98.9 92 20 130/55 98 Nasal Cannula 4.0 Intake and Output 07/18/17 07/19/17 19:00 07:00 Intake Total 920 ml 860 ml Output Total 1900 ml 750 ml Balance -980 ml 110 ml Intake Free Water 260 ml 200 ml Tube Feeding 660 ml 660 ml Output Urine Total 1900 ml 750 ml # Bowel Movements 1 Laboratory Tests 07/19/17 03:50: White Blood Count 7.5, Red Blood Count 3.49L, Hemoglobin 10.2L, Hematocrit 32.0L , Mean Corpuscular Volume 92, Mean Corpuscular Hemoglobin 29.3, Mean Corpuscular Hemoglobin Concent 32.0, Red Cell Distribution Width 13.5, Platelet Count 539H, Mean Platelet Volume 7.3, Neutrophils (%) (Auto) 55.0, Lymphocytes ( %) (Auto) 25.0, Monocytes (%) (Auto) 10.0, Eosinophils (%) (Auto) 8.1H, Basophils (%) (Auto) 2.0, Sodium Level 138, Potassium Level 4.9, Chloride Level 103, Carbon Dioxide Level 32, Anion Gap 3L, Blood Urea Nitrogen 22H, Creatinine 0.8, Estimat Glomerular Filtration Rate , Glucose Level 149H, Calcium Level 8.8 Height (Feet): 6 Weight (Pounds): 174 General Appearance: no apparent distress EENT: normal ENT inspection Neck: normal alignment Cardiovascular: normal peripheral pulses Respiratory/Chest: chest wall non-tender Extremities: non-tender Skin: normal pigmentation Jose Luis Rendon Jul 19, 2017 18:48
[2017-07-20] VITALS: BP 116/100
[2017-07-20] MEDS: NovoLOG Insulin Flexpen SUBQ SCH ×5 (00:24→23:59)
[2017-07-20 04:00] VITALS: BP 124/71
[2017-07-20] MEDS: Albuterol/Ipratropium 3ml neb HHN SCH ×5 (05:30→19:58)
[2017-07-20 08:00] VITALS: BP 153/75
--- NOTE | 2017-07-20 08:30 | Geriatric Medicine Prog Note ---
DATE: 07/17/2017 SUBJECTIVE: The patient with improved diabetic control, but still aphasic, requires G-tube . OBJECTIVE: VITAL SIGNS: Blood [id number]:26, pulse 83, respiratory rate18 , and temperature 97.9. RESPIRATORY: clear CARDIOVASCULAR: regular IV:Gliucose 178 ASSESSMENT:Diabetes Mellitus Type 2 ion fsir control 2.Malnutrtion PLANS:Glucerna 1.5 50 cc/hr per GT with sliding sxale Novolog Q6hrs. . Matthew Eduardo M.D. DR: WARD JOB#: [id number] CC: SANTOSH
[2017-07-20] MEDS: Enoxaparin 80mg Inj SUBQ SCH ×2 (09:00→20:35)
--- NOTE | 2017-07-20 09:40 | Nephrology Progress Note ---
Assessment/Plan Problem List: (1) Respiratory distress (2) Suprapubic catheter (3) Septic shock (4) Electrolyte abnormality Assessment stable from renal stand post extubation- Improved HypoKalemia- resolved Respiratory Failure on Vent now extubated Septic shock / Pneumonia / UTI Oliguria due to low BP Prostate cancer with suprapubic catheter. Severe Alzheimer dementia. Severe protein-calorie malnutrition. Anemia. Hyperglycemia. Plan Plan: no labs today stable from renal stand point per consultants FLuid challenge- Cortisol level wnl Antibiotics pulmonary support K supplements Per order Subjective ROS Limited/Unobtainable: No Constitutional: Reports: malaise, weakness Objective Objective Last 24 Hour Vital Signs Date Time Temp Pulse Resp B/P (MAP) Pulse Ox O2 Delivery O2 Flow Rate FiO2 07/20/17 08:00 72 07/20/17 08:00 97.9 88 20 153/75 98 07/20/17 07:58 84 20 98 Nasal Cannula 2.0 28 07/20/17 07:35 Nasal Cannula 3.0 32 07/20/17 07:35 79 21 96 Nasal Cannula 2.0 28 07/20/17 07:34 96 Nasal Cannula 3.0 32 07/20/17 05:52 89 21 97 Nasal Cannula 2.0 28 07/20/17 05:32 81 22 96 Nasal Cannula 2.0 28 07/20/17 04:00 97.9 91 24 124/71 80 07/20/17 03:39 81 07/20/17 00:10 91 07/20/17 00:00 97.9 112 25 116/100 90 Bi-pap 07/19/17 23:55 99 22 98 Nasal Cannula 2.0 28 07/19/17 23:34 97 22 95 Nasal Cannula 2.0 28 07/19/17 22:00 98.6 107 24 117/72 96 Nasal Cannula 4.0 07/19/17 20:00 101 07/19/17 20:00 98.7 99 26 121/70 96 Nasal Cannula 4.0 07/19/17 19:52 101 07/19/17 19:36 85 22 98 Nasal Cannula 2.0 28 07/19/17 19:26 95 Nasal Cannula 3.0 32 07/19/17 19:26 Nasal Cannula 3.0 32 07/19/17 19:26 100 22 95 Nasal Cannula 2.0 28 07/19/17 16:00 101 07/19/17 16:00 98.8 97 22 150/64 99 Nasal Cannula 4.0 07/19/17 15:36 97 22 98 Nasal Cannula 2.0 28 07/19/17 15:27 95 22 97 Nasal Cannula 2.0 28 07/19/17 12:00 98 07/19/17 12:00 99.1 100 23 138/87 97 Nasal Cannula 4.0 Intake and Output 07/19/17 07/20/17 19:00 07:00 Intake Total 810 ml 860 ml Output Total 1100 ml 300 ml Balance -290 ml 560 ml Intake Free Water 150 ml 200 ml Tube Feeding 660 ml 660 ml Output Urine Total 1100 ml 300 ml Height (Feet): 6 Weight (Pounds): 171 General Appearance: no apparent distress Objective no other change FAITH SEARS Jul 20, 2017 09:40
[2017-07-20] MEDS: Pantoprazole Inj IV SCH (09:43)
[2017-07-20] MEDS: Lactulose 10gm/15ml UDC GT SCH ×3 (09:43→18:24)
[2017-07-20] MEDS: Midodrine 10mg tab GT SCH ×3 (09:43→18:24)
[2017-07-20] MEDS: Aspirin Baby 81mg GT SCH (09:43)
[2017-07-20] MEDS: Levemir Flexpen SUBQ SCH ×2 (09:44→20:34)
[2017-07-20] MEDS: Docusate 100mg/10ml Liq GT SCH ×2 (09:47→18:24)
[2017-07-20] MEDS: Vitamin A&D Oint 2oz Tube TOPIC SCH ×2 (10:13→20:34)
[2017-07-20 12:00] VITALS: BP 124/58
--- NOTE | 2017-07-20 13:17 | Pulmonology Progress Note ---
Assessment/Plan Assessment/Plan 1. Respiratory failure, resolved 2. Sepsis with shock, resolved 3. Pneumonia. 4. Anuria, resolved 5. Prostate cancer with suprapubic catheter. 6. Severe Alzheimer dementia. 7. Severe protein-calorie malnutrition. 8. Anemia. 9. Possible acute myocardial infarction. 10. Azotemia. 11. Hyperglycemia. CXR w edema add lasix abx per ID Subjective ROS Limited/Unobtainable: Yes Allergies: Coded Allergies: No Known Allergies (Verified , 09/26/12) Objective Last 24 Hour Vital Signs Date Time Temp Pulse Resp B/P (MAP) Pulse Ox O2 Delivery O2 Flow Rate FiO2 07/20/17 12:02 81 20 99 Nasal Cannula 2.0 28 07/20/17 12:00 98.1 76 18 124/58 100 07/20/17 12:00 76 07/20/17 11:28 71 22 95 Nasal Cannula 2.0 28 07/20/17 08:00 72 07/20/17 08:00 97.9 88 20 153/75 98 07/20/17 07:58 84 20 98 Nasal Cannula 2.0 28 07/20/17 07:35 Nasal Cannula 3.0 32 07/20/17 07:35 79 21 96 Nasal Cannula 2.0 28 07/20/17 07:34 96 Nasal Cannula 3.0 32 07/20/17 05:52 89 21 97 Nasal Cannula 2.0 28 07/20/17 05:32 81 22 96 Nasal Cannula 2.0 28 07/20/17 04:00 97.9 91 24 124/71 80 07/20/17 03:39 81 07/20/17 00:10 91 07/20/17 00:00 97.9 112 25 116/100 90 Bi-pap 07/19/17 23:55 99 22 98 Nasal Cannula 2.0 28 07/19/17 23:34 97 22 95 Nasal Cannula 2.0 28 07/19/17 22:00 98.6 107 24 117/72 96 Nasal Cannula 4.0 07/19/17 20:00 101 07/19/17 20:00 98.7 99 26 121/70 96 Nasal Cannula 4.0 07/19/17 19:52 101 07/19/17 19:36 85 22 98 Nasal Cannula 2.0 28 07/19/17 19:26 95 Nasal Cannula 3.0 32 07/19/17 19:26 Nasal Cannula 3.0 32 07/19/17 19:26 100 22 95 Nasal Cannula 2.0 28 07/19/17 16:00 101 07/19/17 16:00 98.8 97 22 150/64 99 Nasal Cannula 4.0 07/19/17 15:36 97 22 98 Nasal Cannula 2.0 28 07/19/17 15:27 95 22 97 Nasal Cannula 2.0 28 Intake and Output 07/19/17 07/20/17 19:00 07:00 Intake Total 810 ml 860 ml Output Total 1100 ml 300 ml Balance -290 ml 560 ml Intake Free Water 150 ml 200 ml Tube Feeding 660 ml 660 ml Output Urine Total 1100 ml 300 ml Objective G tube, suprapubic cath General Appearance: no acute distress, cachetic HEENT: normocephalic Respiratory/Chest: lungs clear Cardiovascular: normal rate Current Medications Medications (Trade) Dose Ordered Sig/Matt Route PRN Reason Start Time Stop Time Status Last Admin Dose Admin Acetaminophen (Tylenol) 650 mg Q4H PRN GT Mild Pain (1-3) 07/16/17 11:00 08/01/17 18:59 Albuterol/ Ipratropium (Albuterol/ Ipratropium) 3 ml Q4HRT HHN 07/19/17 15:00 07/24/17 14:59 07/20/17 11:28 Aspirin (ASA) 81 mg DAILY GT 07/17/17 09:00 08/02/17 08:59 07/20/17 09:43 Dextrose (Dextrose 50%) STAT PRN IV Hypoglycemia 07/16/17 11:00 08/01/17 10:59 Docusate Sodium (Colace) 100 mg TWICE A DAY GT 07/18/17 18:00 08/17/17 17:59 07/20/17 09:47 Enoxaparin Sodium (Lovenox) 80 mg Q12HR SUBQ 07/16/17 21:00 08/08/17 20:59 07/19/17 20:46 Insulin Aspart (NovoLOG) Q6HR SUBQ 07/16/17 12:00 08/01/17 20:59 07/20/17 11:52 Insulin Detemir (Levemir) 10 units Q12HR SUBQ 07/16/17 21:00 08/15/17 20:59 07/20/17 09:44 Lactulose (Cephulac) 10 gm THREE TIMES A DAY GT 07/17/17 10:00 08/16/17 09:59 07/20/17 12:10 Midodrine (Pro-Amatine) 10 mg THREE TIMES A DAY GT 07/16/17 13:00 08/10/17 12:59 07/20/17 12:10 Ondansetron HCl (Zofran) 4 mg Q6H PRN GT Nausea & Vomiting 07/16/17 11:00 08/01/17 10:59 Pantoprazole (Protonix) 40 mg DAILY IV 07/17/17 09:00 08/02/17 08:59 07/20/17 09:43 Polyethylene Glycol (Miralax) 17 gm DAILYPRN PRN ORAL Constipation 07/17/17 08:45 08/16/17 08:44 07/17/17 17:25 Vitamin A/Vitamin D (A & D Oint) 1 applic EVERY 12 HOURS TOPIC 07/16/17 21:00 08/03/17 20:59 07/20/17 10:13 SABAS KNOTT Jul 20, 2017 13:17
--- NOTE | 2017-07-20 13:48 | GI Progress Note ---
Assessment/Plan Problems: (1) G tube feedings ICD Codes: Z93.1 - Gastrostomy status SNOMED: 499964895, 357785045 (2) Dysphagia ICD Codes: R13.10 - Dysphagia SNOMED: 59521663 (3) Electrolyte abnormality ICD Codes: E87.8 - Other disorders of electrolyte and fluid balance, not elsewhere classified SNOMED: 641537412 (4) Anemia ICD Codes: D64.9 - Anemia, unspecified SNOMED: 616705845 (5) Dementia ICD Codes: F03.90 - Unspecified dementia without behavioral disturbance SNOMED: 22884492 (6) Dehydration ICD Codes: E86.0 - Dehydration SNOMED: 89120527 Status: stable Status Narrative Discussed with Dr. Almonte. Assessment/Plan GTF monitor H&H ppi for GI prophylaxis bowel regimen fu labs Subjective Subjective limited Objective Last 24 Hour Vital Signs Date Time Temp Pulse Resp B/P (MAP) Pulse Ox O2 Delivery O2 Flow Rate FiO2 07/20/17 13:45 79 20 99 Nasal Cannula 2.0 28 07/20/17 12:02 81 20 99 Nasal Cannula 2.0 28 07/20/17 12:00 98.1 76 18 124/58 100 07/20/17 12:00 76 07/20/17 11:28 71 22 95 Nasal Cannula 2.0 28 07/20/17 08:00 72 07/20/17 08:00 97.9 88 20 153/75 98 07/20/17 07:58 84 20 98 Nasal Cannula 2.0 28 07/20/17 07:35 Nasal Cannula 3.0 32 07/20/17 07:35 79 21 96 Nasal Cannula 2.0 28 07/20/17 07:34 96 Nasal Cannula 3.0 32 07/20/17 05:52 89 21 97 Nasal Cannula 2.0 28 07/20/17 05:32 81 22 96 Nasal Cannula 2.0 28 07/20/17 04:00 97.9 91 24 124/71 80 07/20/17 03:39 81 07/20/17 00:10 91 07/20/17 00:00 97.9 112 25 116/100 90 Bi-pap 07/19/17 23:55 99 22 98 Nasal Cannula 2.0 28 07/19/17 23:34 97 22 95 Nasal Cannula 2.0 28 07/19/17 22:00 98.6 107 24 117/72 96 Nasal Cannula 4.0 07/19/17 20:00 101 07/19/17 20:00 98.7 99 26 121/70 96 Nasal Cannula 4.0 07/19/17 19:52 101 07/19/17 19:36 85 22 98 Nasal Cannula 2.0 28 07/19/17 19:26 95 Nasal Cannula 3.0 32 07/19/17 19:26 Nasal Cannula 3.0 32 07/19/17 19:26 100 22 95 Nasal Cannula 2.0 28 07/19/17 16:00 101 07/19/17 16:00 98.8 97 22 150/64 99 Nasal Cannula 4.0 07/19/17 15:36 97 22 98 Nasal Cannula 2.0 28 07/19/17 15:27 95 22 97 Nasal Cannula 2.0 28 Intake and Output 07/19/17 07/20/17 19:00 07:00 Intake Total 810 ml 860 ml Output Total 1100 ml 300 ml Balance -290 ml 560 ml Intake Free Water 150 ml 200 ml Tube Feeding 660 ml 660 ml Output Urine Total 1100 ml 300 ml Height (Feet): 6 Weight (Pounds): 171 General Appearance: no apparent distress, alert, thin Cardiovascular: normal rate Respiratory/Chest: normal breath sounds, no respiratory distress, other - 2LNC Abdominal Exam: normal bowel sounds, non tender, soft, GT site - c/d/i Extremities: non-tender Martita Sandy N.P. Jul 20, 2017 13:48
[2017-07-20] MEDS: Furosemide 40mg tab ORAL SCH (13:53)
--- NOTE | 2017-07-20 15:45 | Infectious Diseases Prog Note ---
Assessment/Plan Assessment/Plan A; Septic Shock resolved Complicated UTI with MRSA & pseudomonas s/p RX Pneumonia treated CoANS in blood likely contamination Acute respiratory failure improved MRSA colonization P; observe off antibiotic Frequent suctioning Subjective ROS Limited/Unobtainable: Yes Allergies: Coded Allergies: No Known Allergies (Verified , 09/26/12) Objective Vital Signs Last 24 Hour Vital Signs Date Time Temp Pulse Resp B/P (MAP) Pulse Ox O2 Delivery O2 Flow Rate FiO2 07/20/17 15:32 78 22 96 Nasal Cannula 2.0 28 07/20/17 13:45 79 20 99 Nasal Cannula 2.0 28 07/20/17 12:02 81 20 99 Nasal Cannula 2.0 28 07/20/17 12:00 98.1 76 18 124/58 100 07/20/17 12:00 76 07/20/17 11:28 71 22 95 Nasal Cannula 2.0 28 07/20/17 08:00 72 07/20/17 08:00 97.9 88 20 153/75 98 07/20/17 07:58 84 20 98 Nasal Cannula 2.0 28 07/20/17 07:35 Nasal Cannula 3.0 32 07/20/17 07:35 79 21 96 Nasal Cannula 2.0 28 07/20/17 07:34 96 Nasal Cannula 3.0 32 07/20/17 05:52 89 21 97 Nasal Cannula 2.0 28 07/20/17 05:32 81 22 96 Nasal Cannula 2.0 28 07/20/17 04:00 97.9 91 24 124/71 80 07/20/17 03:39 81 07/20/17 00:10 91 07/20/17 00:00 97.9 112 25 116/100 90 Bi-pap 07/19/17 23:55 99 22 98 Nasal Cannula 2.0 28 07/19/17 23:34 97 22 95 Nasal Cannula 2.0 28 07/19/17 22:00 98.6 107 24 117/72 96 Nasal Cannula 4.0 07/19/17 20:00 101 07/19/17 20:00 98.7 99 26 121/70 96 Nasal Cannula 4.0 07/19/17 19:52 101 07/19/17 19:36 85 22 98 Nasal Cannula 2.0 28 07/19/17 19:26 95 Nasal Cannula 3.0 32 07/19/17 19:26 Nasal Cannula 3.0 32 07/19/17 19:26 100 22 95 Nasal Cannula 2.0 28 07/19/17 16:00 101 07/19/17 16:00 98.8 97 22 150/64 99 Nasal Cannula 4.0 Height (Feet): 6 Weight (Pounds): 171 General Appearance: no acute distress HEENT: mucous membranes moist Respiratory/Chest: lungs clear Cardiovascular: normal rate Abdomen: soft, non tender Extremities: no edema Neurologic/Psychiatric: aphasia Current Medications Medications (Trade) Dose Ordered Sig/Matt Route PRN Reason Start Time Stop Time Status Last Admin Dose Admin Acetaminophen (Tylenol) 650 mg Q4H PRN GT Mild Pain (1-3) 07/16/17 11:00 08/01/17 18:59 Albuterol/ Ipratropium (Albuterol/ Ipratropium) 3 ml Q4HRT HHN 07/19/17 15:00 07/24/17 14:59 07/20/17 15:00 Aspirin (ASA) 81 mg DAILY GT 07/17/17 09:00 08/02/17 08:59 07/20/17 09:43 Dextrose (Dextrose 50%) STAT PRN IV Hypoglycemia 07/16/17 11:00 08/01/17 10:59 Docusate Sodium (Colace) 100 mg TWICE A DAY GT 07/18/17 18:00 08/17/17 17:59 07/20/17 09:47 Enoxaparin Sodium (Lovenox) 80 mg Q12HR SUBQ 07/16/17 21:00 08/08/17 20:59 07/19/17 20:46 Furosemide (Lasix) 40 mg DAILY ORAL 07/20/17 13:45 08/19/17 13:44 07/20/17 13:53 Insulin Aspart (NovoLOG) Q6HR SUBQ 07/16/17 12:00 08/01/17 20:59 07/20/17 11:52 Insulin Detemir (Levemir) 10 units Q12HR SUBQ 07/16/17 21:00 08/15/17 20:59 07/20/17 09:44 Lactulose (Cephulac) 10 gm THREE TIMES A DAY GT 07/17/17 10:00 08/16/17 09:59 07/20/17 12:10 Midodrine (Pro-Amatine) 10 mg THREE TIMES A DAY GT 07/16/17 13:00 08/10/17 12:59 07/20/17 12:10 Ondansetron HCl (Zofran) 4 mg Q6H PRN GT Nausea & Vomiting 07/16/17 11:00 08/01/17 10:59 Pantoprazole (Protonix) 40 mg DAILY IV 07/17/17 09:00 08/02/17 08:59 07/20/17 09:43 Polyethylene Glycol (Miralax) 17 gm DAILYPRN PRN ORAL Constipation 07/17/17 08:45 08/16/17 08:44 07/17/17 17:25 Vitamin A/Vitamin D (A & D Oint) 1 applic EVERY 12 HOURS TOPIC 07/16/17 21:00 08/03/17 20:59 07/20/17 10:13 BREANNE CERVANTES Jul 20, 2017 15:45
[2017-07-20 16:00] VITALS: BP 145/73
[2017-07-20] MEDS ORDERED: NS 275ml ONE (16:59)
[2017-07-20 20:00] VITALS: BP 134/64
--- NOTE | 2017-07-20 20:56 | General Progress Note ---
Assessment/Plan Assessment/Plan ASSESSMENT AND RECOMMENDATIONS: 1. Prostate cancer, controlled at this time. Current PSA of 5.6. 2. Leukocytosis, secondary to underlying infection, infiltrates noted.ID following. --> wbc count has normalized. Off abx 3. Anemia 2/2 chronic disease. Ferritin wnl. H/H stable at this time 4. Sepsis resolved 5. G tube feeding 6. Pneumonia 7. UTI 8. Respiratory failure, resolved Subjective Hematologic/Lymphatic: Reports: anemia Allergies: Coded Allergies: No Known Allergies (Verified , 09/26/12) All Systems: reviewed and negative except above Subjective cough with bloody secretions Objective Last 24 Hour Vital Signs Date Time Temp Pulse Resp B/P (MAP) Pulse Ox O2 Delivery O2 Flow Rate FiO2 07/20/17 18:35 Nasal Cannula 2.0 28 07/20/17 18:35 90 20 98 Nasal Cannula 2.0 28 07/20/17 18:35 99 Nasal Cannula 2.0 28 07/20/17 18:30 88 20 99 Nasal Cannula 2.0 28 07/20/17 16:00 98.6 82 20 145/73 97 07/20/17 16:00 82 07/20/17 15:57 78 20 98 Nasal Cannula 2.0 28 07/20/17 15:32 78 22 96 Nasal Cannula 2.0 28 07/20/17 13:45 79 20 99 Nasal Cannula 2.0 28 07/20/17 12:02 81 20 99 Nasal Cannula 2.0 28 07/20/17 12:00 98.1 76 18 124/58 100 07/20/17 12:00 76 07/20/17 11:28 71 22 95 Nasal Cannula 2.0 28 07/20/17 08:00 72 07/20/17 08:00 97.9 88 20 153/75 98 07/20/17 07:58 84 20 98 Nasal Cannula 2.0 28 07/20/17 07:35 Nasal Cannula 3.0 32 07/20/17 07:35 79 21 96 Nasal Cannula 2.0 28 07/20/17 07:34 96 Nasal Cannula 3.0 32 07/20/17 05:52 89 21 97 Nasal Cannula 2.0 28 07/20/17 05:32 81 22 96 Nasal Cannula 2.0 28 07/20/17 04:00 97.9 91 24 124/71 80 07/20/17 03:39 81 12/26/17 00:10 91 07/20/17 00:00 97.9 112 25 116/100 90 Bi-pap 07/19/17 23:55 99 22 98 Nasal Cannula 2.0 28 07/19/17 23:34 97 22 95 Nasal Cannula 2.0 28 07/19/17 22:00 98.6 107 24 117/72 96 Nasal Cannula 4.0 Intake and Output 07/19/17 07/20/17 19:00 07:00 Intake Total 810 ml 860 ml Output Total 1100 ml 300 ml Balance -290 ml 560 ml Intake Free Water 150 ml 200 ml Tube Feeding 660 ml 660 ml Output Urine Total 1100 ml 300 ml Height (Feet): 6 Weight (Pounds): 171 General Appearance: no apparent distress EENT: normal ENT inspection Neck: normal alignment Cardiovascular: normal peripheral pulses Neurologic: nitrocellulose maker II-XII grossly normal Skin: normal pigmentation Jose Luis Rendon Jul 20, 2017 20:56
[2017-07-21 00:42] VITALS: BP 138/78
[2017-07-21] MEDS: Albuterol/Ipratropium 3ml neb HHN SCH ×5 (03:09→15:06)
[2017-07-21 04:00] VITALS: BP 128/75
[2017-07-21 05:37] LABS: BASOPHILS % (AUTO) 1.7 % (0.0-2.0); EOSINOPHILS % (AUTO) 9.7 % (0.0-3.0); LYMPHOCYTES % (AUTO) 15.1 % (20.0-45.0); MEAN CORPUSCULAR HEMOGLOBIN 29.3 PG (27.0-31.0); MEAN CORPUSCULAR HGB CONC 32.2 G/DL (32.0-36.0); MEAN CORPUSCULAR VOLUME 91 FL (80-99); MEAN PLATELET VOLUME 7.6 FL (6.5-10.1); MONOCYTES % (AUTO) 11.3 % (1.0-10.0); NEUTROPHILS % (AUTO) 62.2 % (45.0-75.0); PLATELET COUNT 484 K/UL (150-450); RED BLOOD COUNT 3.69 M/UL (4.70-6.10); RED CELL DISTRIBUTION WIDTH 13.7 % (11.6-14.8); WHITE BLOOD COUNT 7.9 K/UL (4.8-10.8)
[2017-07-21 06:05] LABS: ANION GAP 4 mmol/L (5-15); CALCIUM 8.8 MG/DL (8.5-10.1); CARBON DIOXIDE 35 MMOL/L (21-32); CHLORIDE 101 MMOL/L (98-107); CREATININE 0.8 MG/DL (0.55-1.30); POTASSIUM 4.2 MMOL/L (3.5-5.1); SODIUM 140 MMOL/L (136-145)
[2017-07-21] MEDS: NovoLOG Insulin Flexpen SUBQ SCH ×2 (06:06→12:23)
--- NOTE | 2017-07-21 08:04 | Pulmonology Progress Note ---
Assessment/Plan Assessment/Plan 1. Respiratory failure, resolved 2. Sepsis with shock, resolved 3. Pneumonia. 4. Anuria, resolved 5. Prostate cancer with suprapubic catheter. 6. Severe Alzheimer dementia. 7. Severe protein-calorie malnutrition. 8. Anemia. 9. Possible acute myocardial infarction. 10. Azotemia. 11. Hyperglycemia. f/u CXR continue lasix abx per ID Subjective ROS Limited/Unobtainable: Yes Allergies: Coded Allergies: No Known Allergies (Verified , 09/26/12) Objective Last 24 Hour Vital Signs Date Time Temp Pulse Resp B/P (MAP) Pulse Ox O2 Delivery O2 Flow Rate FiO2 07/21/17 07:40 87 20 94 Nasal Cannula 2.0 28 07/21/17 04:00 98.3 102 24 128/75 96 Nasal Cannula 2.0 07/21/17 03:56 88 07/21/17 03:10 81 20 98 Nasal Cannula 2.0 28 07/21/17 03:05 80 20 99 Nasal Cannula 2.0 28 07/21/17 00:42 98.0 88 20 138/78 97 Nasal Cannula 2.0 07/21/17 00:00 90 07/20/17 23:08 87 20 98 Nasal Cannula 2.0 28 07/20/17 23:00 89 20 99 Nasal Cannula 2.0 28 07/20/17 20:00 98.3 71 18 134/64 98 Nasal Cannula 07/20/17 19:59 86 07/20/17 18:35 Nasal Cannula 2.0 28 07/20/17 18:35 90 20 98 Nasal Cannula 2.0 28 07/20/17 18:35 99 Nasal Cannula 2.0 28 07/20/17 18:30 88 20 99 Nasal Cannula 2.0 28 07/20/17 16:00 98.6 82 20 145/73 97 07/20/17 16:00 82 07/20/17 15:57 78 20 98 Nasal Cannula 2.0 28 07/20/17 15:32 78 22 96 Nasal Cannula 2.0 28 07/20/17 13:45 79 20 99 Nasal Cannula 2.0 28 07/20/17 12:02 81 20 99 Nasal Cannula 2.0 28 07/20/17 12:00 98.1 76 18 124/58 100 07/20/17 12:00 76 07/20/17 11:28 71 22 95 Nasal Cannula 2.0 28 Intake and Output 07/20/17 07/21/17 19:00 07:00 Intake Total 660 ml 655 ml Balance 660 ml 655 ml Intake Free Water 50 ml Tube Feeding 550 ml 605 ml Other 110 ml Objective G tube, suprapubic cath General Appearance: no acute distress, cachetic Respiratory/Chest: rhonchi Cardiovascular: normal rate Laboratory Tests 07/21/17 04:40: White Blood Count 7.9, Red Blood Count 3.69L, Hemoglobin 10.8L, Hematocrit 33.6L , Mean Corpuscular Volume 91, Mean Corpuscular Hemoglobin 29.3, Mean Corpuscular Hemoglobin Concent 32.2, Red Cell Distribution Width 13.7, Platelet Count 484H, Mean Platelet Volume 7.6, Neutrophils (%) (Auto) 62.2, Lymphocytes ( %) (Auto) 15.1L, Monocytes (%) (Auto) 11.3H, Eosinophils (%) (Auto) 9.7H, Basophils (%) (Auto) 1.7, Sodium Level 140, Potassium Level 4.2, Chloride Level 101, Carbon Dioxide Level 35H, Anion Gap 4L, Blood Urea Nitrogen 28H, Creatinine 0.8, Estimat Glomerular Filtration Rate , Glucose Level 129H, Calcium Level 8.8 Current Medications Medications (Trade) Dose Ordered Sig/Matt Route PRN Reason Start Time Stop Time Status Last Admin Dose Admin Acetaminophen (Tylenol) 650 mg Q4H PRN GT Mild Pain (1-3) 07/16/17 11:00 08/01/17 18:59 Albuterol/ Ipratropium (Albuterol/ Ipratropium) 3 ml Q4HRT HHN 07/19/17 15:00 07/24/17 14:59 07/21/17 08:01 Aspirin (ASA) 81 mg DAILY GT 07/17/17 09:00 08/02/17 08:59 07/20/17 09:43 Dextrose (Dextrose 50%) STAT PRN IV Hypoglycemia 07/16/17 11:00 08/01/17 10:59 Docusate Sodium (Colace) 100 mg TWICE A DAY GT 07/18/17 18:00 08/17/17 17:59 07/20/17 18:24 Enoxaparin Sodium (Lovenox) 80 mg Q12HR SUBQ 07/16/17 21:00 08/08/17 20:59 07/19/17 20:46 Furosemide (Lasix) 40 mg DAILY ORAL 07/20/17 13:45 08/19/17 13:44 07/20/17 13:53 Insulin Aspart (NovoLOG) Q6HR SUBQ 07/16/17 12:00 08/01/17 20:59 07/21/17 06:06 Insulin Detemir (Levemir) 10 units Q12HR SUBQ 07/16/17 21:00 08/15/17 20:59 07/20/17 20:34 Lactulose (Cephulac) 10 gm THREE TIMES A DAY GT 07/17/17 10:00 08/16/17 09:59 07/20/17 18:24 Midodrine (Pro-Amatine) 10 mg THREE TIMES A DAY GT 07/16/17 13:00 08/10/17 12:59 07/20/17 18:24 Ondansetron HCl (Zofran) 4 mg Q6H PRN GT Nausea & Vomiting 07/16/17 11:00 08/01/17 10:59 Pantoprazole (Protonix) 40 mg DAILY IV 07/17/17 09:00 08/02/17 08:59 07/20/17 09:43 Polyethylene Glycol (Miralax) 17 gm DAILYPRN PRN ORAL Constipation 07/17/17 08:45 08/16/17 08:44 07/17/17 17:25 Vitamin A/Vitamin D (A & D Oint) 1 applic EVERY 12 HOURS TOPIC 07/16/17 21:00 08/03/17 20:59 07/20/17 20:34 SABAS KNOTT Jul 21, 2017 08:04
[2017-07-21 08:15] VITALS: BP 128/86
[2017-07-21] MEDS: Vitamin A&D Oint 2oz Tube TOPIC SCH (09:00)
[2017-07-21] MEDS: Docusate 100mg/10ml Liq GT SCH (09:36)
[2017-07-21] MEDS: Midodrine 10mg tab GT SCH ×2 (09:37→12:24)
[2017-07-21] MEDS: Furosemide 40mg tab ORAL SCH (09:37)
[2017-07-21] MEDS: Lactulose 10gm/15ml UDC GT SCH ×2 (09:37→12:23)
[2017-07-21] MEDS: Aspirin Baby 81mg GT SCH (09:37)
[2017-07-21] MEDS: Pantoprazole Inj IV SCH (09:40)
[2017-07-21] MEDS: Enoxaparin 80mg Inj SUBQ SCH (09:55)
[2017-07-21] MEDS: Levemir Flexpen SUBQ SCH (09:56)
[2017-07-21 12:00] VITALS: BP 131/73
--- NOTE | 2017-07-21 12:04 | Infectious Diseases Prog Note ---
Assessment/Plan Assessment/Plan A; Septic Shock resolved Complicated UTI with MRSA & pseudomonas s/p RX Pneumonia treated CoANS in blood likely contamination Acute respiratory failure improved MRSA colonization P; observe off antibiotic Frequent suctioning Subjective ROS Limited/Unobtainable: Yes Allergies: Coded Allergies: No Known Allergies (Verified , 09/26/12) Objective Vital Signs Last 24 Hour Vital Signs Date Time Temp Pulse Resp B/P (MAP) Pulse Ox O2 Delivery O2 Flow Rate FiO2 07/21/17 11:25 92 20 98 Nasal Cannula 2.0 28 07/21/17 11:10 85 20 97 Nasal Cannula 2.0 28 07/21/17 08:15 98.2 96 18 128/86 100 Nasal Cannula 2.0 07/21/17 08:14 90 07/21/17 07:55 Nasal Cannula 2.0 28 07/21/17 07:52 89 20 98 Nasal Cannula 2.0 28 07/21/17 07:40 87 20 94 Nasal Cannula 2.0 28 07/21/17 07:39 94 Nasal Cannula 2.0 28 07/21/17 04:00 98.3 102 24 128/75 96 Nasal Cannula 2.0 07/21/17 03:56 88 07/21/17 03:10 81 20 98 Nasal Cannula 2.0 28 07/21/17 03:05 80 20 99 Nasal Cannula 2.0 28 07/21/17 00:42 98.0 88 20 138/78 97 Nasal Cannula 2.0 07/21/17 00:00 90 07/20/17 23:08 87 20 98 Nasal Cannula 2.0 28 07/20/17 23:00 89 20 99 Nasal Cannula 2.0 28 07/20/17 20:00 98.3 71 18 134/64 98 Nasal Cannula 07/20/17 19:59 86 07/20/17 18:35 Nasal Cannula 2.0 28 07/20/17 18:35 90 20 98 Nasal Cannula 2.0 28 07/20/17 18:35 99 Nasal Cannula 2.0 28 07/20/17 18:30 88 20 99 Nasal Cannula 2.0 28 07/20/17 16:00 98.6 82 20 145/73 97 07/20/17 16:00 82 07/20/17 15:57 78 20 98 Nasal Cannula 2.0 28 07/20/17 15:32 78 22 96 Nasal Cannula 2.0 28 07/20/17 13:45 79 20 99 Nasal Cannula 2.0 28 Height (Feet): 6 Weight (Pounds): 173 General Appearance: no acute distress HEENT: mucous membranes moist Respiratory/Chest: lungs clear, other - O2 by nasal cannula Cardiovascular: normal rate Abdomen: soft, non tender, other - GT feeding Extremities: no edema Neurologic/Psychiatric: aphasia Laboratory Tests Test 07/21/17 04:40 White Blood Count 7.9 K/UL (4.8-10.8) Red Blood Count 3.69 M/UL (4.70-6.10) L Hemoglobin 10.8 G/DL (14.2-18.0) L Hematocrit 33.6 % (42.0-52.0) L Mean Corpuscular Volume 91 FL (80-99) Mean Corpuscular Hemoglobin 29.3 PG (27.0-31.0) Mean Corpuscular Hemoglobin Concent 32.2 G/DL (32.0-36.0) Red Cell Distribution Width 13.7 % (11.6-14.8) Platelet Count 484 K/UL (150-450) H Mean Platelet Volume 7.6 FL (6.5-10.1) Neutrophils (%) (Auto) 62.2 % (45.0-75.0) Lymphocytes (%) (Auto) 15.1 % (20.0-45.0) L Monocytes (%) (Auto) 11.3 % (1.0-10.0) H Eosinophils (%) (Auto) 9.7 % (0.0-3.0) H Basophils (%) (Auto) 1.7 % (0.0-2.0) Sodium Level 140 MMOL/L (136-145) Potassium Level 4.2 MMOL/L (3.5-5.1) Chloride Level 101 MMOL/L (98-107) Carbon Dioxide Level 35 MMOL/L (21-32) H Anion Gap 4 mmol/L (5-15) L Blood Urea Nitrogen 28 mg/dL (7-18) H Creatinine 0.8 MG/DL (0.55-1.30) Estimat Glomerular Filtration Rate mL/min (>60) Glucose Level 129 MG/DL (74-106) H Calcium Level 8.8 MG/DL (8.5-10.1) Current Medications Medications (Trade) Dose Ordered Sig/Mtat Route PRN Reason Start Time Stop Time Status Last Admin Dose Admin Acetaminophen (Tylenol) 650 mg Q4H PRN GT Mild Pain (1-3) 07/16/17 11:00 08/01/17 18:59 Albuterol/ Ipratropium (Albuterol/ Ipratropium) 3 ml Q4HRT HHN 07/19/17 15:00 07/24/17 14:59 07/21/17 11:13 Aspirin (ASA) 81 mg DAILY GT 07/17/17 09:00 08/02/17 08:59 07/21/17 09:37 Dextrose (Dextrose 50%) STAT PRN IV Hypoglycemia 07/16/17 11:00 08/01/17 10:59 Docusate Sodium (Colace) 100 mg TWICE A DAY GT 07/18/17 18:00 08/17/17 17:59 07/21/17 09:36 Enoxaparin Sodium (Lovenox) 80 mg Q12HR SUBQ 07/16/17 21:00 08/08/17 20:59 07/21/17 09:55 Furosemide (Lasix) 40 mg DAILY ORAL 07/20/17 13:45 08/19/17 13:44 07/21/17 09:37 Insulin Aspart (NovoLOG) Q6HR SUBQ 07/16/17 12:00 08/01/17 20:59 07/21/17 06:06 Insulin Detemir (Levemir) 10 units Q12HR SUBQ 07/16/17 21:00 08/15/17 20:59 07/21/17 09:56 Lactulose (Cephulac) 10 gm THREE TIMES A DAY GT 07/17/17 10:00 08/16/17 09:59 07/21/17 09:37 Midodrine (Pro-Amatine) 10 mg THREE TIMES A DAY GT 07/16/17 13:00 08/10/17 12:59 07/21/17 09:37 Ondansetron HCl (Zofran) 4 mg Q6H PRN GT Nausea & Vomiting 07/16/17 11:00 08/01/17 10:59 Pantoprazole (Protonix) 40 mg DAILY IV 07/17/17 09:00 1/8/18 08:59 07/21/17 09:40 Polyethylene Glycol (Miralax) 17 gm DAILYPRN PRN ORAL Constipation 07/17/17 08:45 08/16/17 08:44 07/17/17 17:25 Vitamin A/Vitamin D (A & D Oint) 1 applic EVERY 12 HOURS TOPIC 07/16/17 21:00 08/03/17 20:59 07/21/17 09:00 BREANNE CERVANTES Jul 21, 2017 12:04
--- NOTE | 2017-07-21 14:03 | Nephrology Progress Note ---
Assessment/Plan Problem List: (1) Respiratory distress (2) Suprapubic catheter (3) Septic shock (4) Electrolyte abnormality Assessment stable from renal stand post extubation- Improved HypoKalemia- resolved Respiratory Failure on Vent now extubated Septic shock / Pneumonia / UTI Oliguria due to low BP Prostate cancer with suprapubic catheter. Severe Alzheimer dementia. Severe protein-calorie malnutrition. Anemia. Hyperglycemia. Plan Plan: stable from renal stand point per consultants FLuid challenge- Cortisol level wnl Antibiotics pulmonary support K supplements Per order Subjective ROS Limited/Unobtainable: No Constitutional: Reports: malaise Objective Objective Last 24 Hour Vital Signs Date Time Temp Pulse Resp B/P (MAP) Pulse Ox O2 Delivery O2 Flow Rate FiO2 07/21/17 11:25 92 20 98 Nasal Cannula 2.0 07/21/17 11:10 85 20 97 Nasal Cannula 2.0 28 07/21/17 08:15 98.2 96 18 128/86 100 Nasal Cannula 2.0 07/21/17 08:14 90 07/21/17 07:55 Nasal Cannula 2.0 07/21/17 07:52 89 20 98 Nasal Cannula 2.0 28 07/21/17 07:40 87 20 94 Nasal Cannula 2.0 28 07/21/17 07:39 94 Nasal Cannula 2.0 28 07/21/17 04:00 98.3 102 24 128/75 96 Nasal Cannula 2.0 07/21/17 03:56 88 07/21/17 03:10 81 20 98 Nasal Cannula 2.0 28 07/21/17 03:05 80 20 99 Nasal Cannula 2.0 28 07/21/17 00:42 98.0 88 20 138/78 97 Nasal Cannula 2.0 07/21/17 00:00 90 07/20/17 23:08 87 20 98 Nasal Cannula 2.0 28 07/20/17 23:00 89 20 99 Nasal Cannula 2.0 28 07/20/17 20:00 98.3 71 18 134/64 98 Nasal Cannula 07/20/17 19:59 86 07/20/17 18:35 Nasal Cannula 2.0 28 07/20/17 18:35 90 20 98 Nasal Cannula 2.0 28 07/20/17 18:35 99 Nasal Cannula 2.0 28 07/20/17 18:30 88 20 99 Nasal Cannula 2.0 28 07/20/17 16:00 98.6 82 20 145/73 97 07/20/17 16:00 82 07/20/17 15:57 78 20 98 Nasal Cannula 2.0 28 07/20/17 15:32 78 22 96 Nasal Cannula 2.0 28 Intake and Output 07/20/17 07/21/17 19:00 07:00 Intake Total 660 ml 655 ml Balance 660 ml 655 ml Intake Free Water 50 ml Tube Feeding 550 ml 605 ml Other 110 ml Laboratory Tests 07/21/17 04:40: White Blood Count 7.9, Red Blood Count 3.69L, Hemoglobin 10.8L, Hematocrit 33.6L , Mean Corpuscular Volume 91, Mean Corpuscular Hemoglobin 29.3, Mean Corpuscular Hemoglobin Concent 32.2, Red Cell Distribution Width 13.7, Platelet Count 484H, Mean Platelet Volume 7.6, Neutrophils (%) (Auto) 62.2, Lymphocytes ( %) (Auto) 15.1L, Monocytes (%) (Auto) 11.3H, Eosinophils (%) (Auto) 9.7H, Basophils (%) (Auto) 1.7, Sodium Level 140, Potassium Level 4.2, Chloride Level 101, Carbon Dioxide Level 35H, Anion Gap 4L, Blood Urea Nitrogen 28H, Creatinine 0.8, Estimat Glomerular Filtration Rate , Glucose Level 129H, Calcium Level 8.8 Height (Feet): 6 Weight (Pounds): 173 General Appearance: no apparent distress Objective no other change FAITH SEARS Jul 21, 2017 14:03
--- NOTE | 2017-07-21 16:30 | General Progress Note ---
Assessment/Plan Assessment/Plan ASSESSMENT AND RECOMMENDATIONS: 1. Prostate cancer, controlled at this time. Current PSA of 5.6. Continue to monitor PSA and symptoms as outpatient 2. Leukocytosis, secondary to underlying infection, infiltrates noted.ID following. --> wbc count has normalized. Off abx 3. Anemia 2/2 chronic disease. Ferritin wnl. H/H stable at this time 4. Sepsis resolved 5. G tube feeding Subjective Respiratory: Reports: cough Hematologic/Lymphatic: Reports: anemia Allergies: Coded Allergies: No Known Allergies (Verified , 09/26/12) All Systems: reviewed and negative except above Subjective H/H stable, plt count decreasing, no fevers Objective Last 24 Hour Vital Signs Date Time Temp Pulse Resp B/P (MAP) Pulse Ox O2 Delivery O2 Flow Rate FiO2 07/21/17 15:17 96 20 98 Nasal Cannula 2.0 28 07/21/17 15:00 82 20 98 Nasal Cannula 2.0 28 07/21/17 12:00 98.3 90 18 131/73 97 Nasal Cannula 2.0 07/21/17 12:00 89 07/21/17 11:25 92 20 98 Nasal Cannula 2.0 28 07/21/17 11:10 85 20 97 Nasal Cannula 2.0 28 07/21/17 08:15 98.2 96 18 128/86 100 Nasal Cannula 2.0 07/21/17 08:14 90 07/21/17 07:55 Nasal Cannula 2.0 28 07/21/17 07:52 89 20 98 Nasal Cannula 2.0 28 07/21/17 07:40 87 20 94 Nasal Cannula 2.0 28 07/21/17 07:39 94 Nasal Cannula 2.0 28 07/21/17 04:00 98.3 102 24 128/75 96 Nasal Cannula 2.0 07/21/17 03:56 88 07/21/17 03:10 81 20 98 Nasal Cannula 2.0 28 07/21/17 03:05 80 20 99 Nasal Cannula 2.0 07/21/17 00:42 98.0 88 20 138/78 97 Nasal Cannula 2.0 07/21/17 00:00 90 07/20/17 23:08 87 20 98 Nasal Cannula 2.0 28 07/20/17 23:00 89 20 99 Nasal Cannula 2.0 28 07/20/17 20:00 98.3 71 18 134/64 98 Nasal Cannula 07/20/17 19:59 86 07/20/17 18:35 Nasal Cannula 2.0 28 07/20/17 18:35 90 20 98 Nasal Cannula 2.0 28 07/20/17 18:35 99 Nasal Cannula 2.0 28 07/20/17 18:30 88 20 99 Nasal Cannula 2.0 28 Intake and Output 07/20/17 07/21/17 19:00 07:00 Intake Total 660 ml 655 ml Balance 660 ml 655 ml Intake Free Water 50 ml Tube Feeding 550 ml 605 ml Other 110 ml Laboratory Tests 07/21/17 04:40: White Blood Count 7.9, Red Blood Count 3.69L, Hemoglobin 10.8L, Hematocrit 33.6L , Mean Corpuscular Volume 91, Mean Corpuscular Hemoglobin 29.3, Mean Corpuscular Hemoglobin Concent 32.2, Red Cell Distribution Width 13.7, Platelet Count 484H, Mean Platelet Volume 7.6, Neutrophils (%) (Auto) 62.2, Lymphocytes ( %) (Auto) 15.1L, Monocytes (%) (Auto) 11.3H, Eosinophils (%) (Auto) 9.7H, Basophils (%) (Auto) 1.7, Sodium Level 140, Potassium Level 4.2, Chloride Level 101, Carbon Dioxide Level 35H, Anion Gap 4L, Blood Urea Nitrogen 28H, Creatinine 0.8, Estimat Glomerular Filtration Rate , Glucose Level 129H, Calcium Level 8.8 Height (Feet): 6 Weight (Pounds): 173 General Appearance: no apparent distress EENT: normal ENT inspection Neck: normal alignment Cardiovascular: normal peripheral pulses Extremities: normal range of motion Skin: normal pigmentation Jose Luis Rendon Jul 21, 2017 16:30
--- NOTE | 2017-07-21 19:11 | General Progress Note ---
Assessment/Plan Assessment/Plan Assessment - OBS - dysphagia / GT - prostate CA - anemia - OB (+) --> no family to discuss w/u - s/p Suprapubic catheter - DM - Leukocytosis Recommendations - GT feeding - follow residuals - Elevate HOB - monitor H&H - PPI - d/c planning Subjective Allergies: Coded Allergies: No Known Allergies (Verified , 09/26/12) Subjective above noted tolerating feeds for discharge today Objective Last 24 Hour Vital Signs Date Time Temp Pulse Resp B/P (MAP) Pulse Ox O2 Delivery O2 Flow Rate FiO2 07/21/17 15:17 96 20 98 Nasal Cannula 2.0 28 07/21/17 15:00 82 20 98 Nasal Cannula 2.0 28 07/21/17 12:00 98.3 90 18 131/73 97 Nasal Cannula 2.0 07/21/17 12:00 89 07/21/17 11:25 92 20 98 Nasal Cannula 2.0 28 07/21/17 11:10 85 20 97 Nasal Cannula 2.0 28 07/21/17 08:15 98.2 96 18 128/86 100 Nasal Cannula 2.0 07/21/17 08:14 90 07/21/17 07:55 Nasal Cannula 2.0 28 07/21/17 07:52 89 20 98 Nasal Cannula 2.0 28 07/21/17 07:40 87 20 94 Nasal Cannula 2.0 28 07/21/17 07:39 94 Nasal Cannula 2.0 28 07/21/17 04:00 98.3 102 24 128/75 96 Nasal Cannula 2.0 07/21/17 03:56 88 07/21/17 03:10 81 20 98 Nasal Cannula 2.0 28 07/21/17 03:05 80 20 99 Nasal Cannula 2.0 28 07/21/17 00:42 98.0 88 20 138/78 97 Nasal Cannula 2.0 07/21/17 00:00 90 07/20/17 23:08 87 20 98 Nasal Cannula 2.0 28 07/20/17 23:00 89 20 99 Nasal Cannula 2.0 28 07/20/17 20:00 98.3 71 18 134/64 98 Nasal Cannula 07/20/17 19:59 86 Intake and Output 07/20/17 07/21/17 19:00 07:00 Intake Total 660 ml 655 ml Balance 660 ml 655 ml Intake Free Water 50 ml Tube Feeding 550 ml 605 ml Other 110 ml Laboratory Tests 07/21/17 04:40: White Blood Count 7.9, Red Blood Count 3.69L, Hemoglobin 10.8L, Hematocrit 33.6L , Mean Corpuscular Volume 91, Mean Corpuscular Hemoglobin 29.3, Mean Corpuscular Hemoglobin Concent 32.2, Red Cell Distribution Width 13.7, Platelet Count 484H, Mean Platelet Volume 7.6, Neutrophils (%) (Auto) 62.2, Lymphocytes ( %) (Auto) 15.1L, Monocytes (%) (Auto) 11.3H, Eosinophils (%) (Auto) 9.7H, Basophils (%) (Auto) 1.7, Sodium Level 140, Potassium Level 4.2, Chloride Level 101, Carbon Dioxide Level 35H, Anion Gap 4L, Blood Urea Nitrogen 28H, Creatinine 0.8, Estimat Glomerular Filtration Rate , Glucose Level 129H, Calcium Level 8.8 Height (Feet): 6 Weight (Pounds): 173 Objective Eldely WM NCAT supple, (+ ) IJ catheter CTA RR soft flat, (+) GT, (+) SP catheter no edema OBS CURTIS GARCIA Jul 21, 2017 19:11
--- NOTE | 2017-07-22 00:06 | Diagnostic Imaging Report ---
APPROVED REPORT CPT Code: 59139 Present Symptoms Shortness of breath BILATERAL: Imaging reveals a patent deep venous system bilaterally. There is no evidence of thrombus within the femoral, popliteal or tibial segments. The greater saphenous veins are also within normal limits. Doppler indicates normal spontaneous flow within these segments.
--- NOTE | 2017-07-24 18:16 | Discharge Summary 2 SIG ---
DATE OF ADMISSION: 07/02/2017 DATE OF DISCHARGE: 07/21/2017 CONSULTANTS: 1. Jeremie Brooks M.D. 2. Giovany Anderson M.D. 3. George Sanchez M.D. 4. Jose Luis Rendon M.D. 5. Rosales Miramontes M.D. 6. Cleve Almonte M.D. 7. Matthew Vázquez M.D. 8. Matthew Eduardo M.D. BRIEF HOSPITAL COURSE: The patient is a 76-year-old male, who was brought in by EMS for complication with the suprapubic catheter. During transport, he was noted to have increased respiratory distress and was noted to have O2 saturation down into 70s. On evaluation at ED, he was orally intubated and a central line was inserted to the right internal jugular. Suprapubic catheter was initially changed with a 12-American Lamar catheter, however, did not have any urine output, subsequently, catheter was changed to a 14-American coude catheter, which had good urine flow. He has a past medical history significant for advanced dementia, prostate CA, G-tube, suprapubic catheter, anemia, seizure disorder, cerebrovascular disease, depression, hyperlipidemia, anxiety, Alzheimer's disease, hypertension, glaucoma, atherosclerotic heart disease, chronic obstructive pulmonary disease, and osteoporosis. He came in with a POLST that was signed by family that states Full Code. Chest x-ray showed right lobe infiltrate and lactic acid was elevated to 3.4. He was admitted to ICU for respiratory failure and sepsis with shock and pneumonia. Initial blood pressure in the emergency department was 78/55 and pulse rate was 136. EKG showed sinus tachycardia. There was no evidence of ST to T-wave abnormalities. The patient was on Levophed drip in the ICU and was followed by tightener, Dr. Brooks. Leukocytosis showed bandemia. Echocardiogram done showed ejection fraction 40% to 45% with PASP of 33 and mild aortic regurgitation. All antihypertensives was placed on hold. There was findings of large pleural effusion and underlying pneumonia. He was initially started on vancomycin and Zosyn pending culture results. The patient seemed to have pyuria. Urine WBC too many to count with 3+ leukocyte esterase. He had prostate cancer, current PSA of 5.6. He had electrolyte imbalance. Potassium was repleted. He was given fluid challenge. Blood sugars were also monitored and was given Levemir. Urine culture showed growth of MRSA/Pseudomonas. Sputum culture with Pseudomonas and Enterobacter. Blood cultures with coagulase-negative Staph, likely contaminated. He received 10 days of antibiotic and was observed off antibiotic treatment. Leukocytosis resolved. Dr. Anderson was consulted for trach evaluation as the patient has failed extubation and family was not willing to make him DNR. He was able to be weaned off Levophed, however, was not tolerating weaning. He continued to be on vent support. Subsequent chest x-ray showed worsening aeration and increased interstitial and bilateral airspace. Bioethics consult was also done. Bioethics committee approved tracheostomy and DNR status, however, the patient was more responsive to be extubated. On 07/15/2017, he was extubated and was tolerating extubation. He was transferred to [facility] and was given diureses, was placed on aspiration precaution. Lasix was increased. The patient Code status back to Full Code and was eventually discharged back to [facility]. FINAL DIAGNOSES: 1. Sepsis with septic shock, resolved. 2. Acute respiratory failure requiring intubation status post extubation. 3. Complicated urinary tract infection with methicillin-sensitive Staphylococcus aureus and Pseudomonas. 4. Pneumonia. 5. Prostate cancer. 6. Anemia secondary to chronic disease. 7. Gastrostomy tube feed. 8. Alzheimer's dementia. 9. Severe protein-calorie malnutrition. 10. Possible acute myocardial infarction. 11. Dehydration. 12. Dysphagia on gastrostomy tube. 13. Hypokalemia. 14. Oliguria. 15. Diabetes mellitus type 2. 16. Sacrococcygeal stage II pressure ulcer, left lateral fifth metatarsal deep tissue injury pressure ulcer, and left heel unstageable pressure ulcer, present on admission. DISPOSITION: The patient was discharged to [facility]. Sary Oakes M.D. I have been assigned to dictate discharge summary on this account and I was not involved in the patient's management. Licha Garduno N.P. DR: JEN JOB#: [id number] CC:
== END 2017-07-21 16:00 | DRG 870 ==
LOC: EDBD 16:12 → EMR 16:50 → ICU 17:45 → EDBEDREQ 17:54 → 2W 07-16 10:27
PROC: 0BH17EZ Insertion of Endotracheal Airway into Trachea, Via Natural or Artificial Opening (ICD-10-PCS; principal; 2017-07-02)
PROC: 5A1955Z Respiratory Ventilation, Greater than 96 Consecutive Hours (ICD-10-PCS; principal; 2017-07-02)
PROC: 3E043XZ Introduction of Vasopressor into Central Vein, Percutaneous Approach (ICD-10-PCS; principal; 2017-07-02)
PROC: 05HM33Z Insertion of Infusion Device into Right Internal Jugular Vein, Percutaneous Approach (ICD-10-PCS; principal; 2017-07-02)
DX: A41.9 Sepsis, unspecified organism (principal); J96.01 Acute respiratory failure with hypoxia; I21.9 Acute myocardial infarction, unspecified; N17.0 Acute kidney failure with tubular necrosis; R65.21 Severe sepsis with septic shock; J69.0 Pneumonitis due to inhalation of food and vomit; E43 Unspecified severe protein-calorie malnutrition; L89.152 Pressure ulcer of sacral region, stage 2; R34 Anuria and oliguria; R13.10 Dysphagia, unspecified; T83.010A Breakdown (mechanical) of cystostomy catheter, initial encounter; T83.511A Infection and inflammatory reaction due to indwelling urethral catheter, initial encounter; G30.9 Alzheimer's disease, unspecified; F02.80 Dementia in other diseases classified elsewhere, unspecified severity, without behavioral disturbance, psychotic disturbance, mood disturbance, and anxiety; J44.9 Chronic obstructive pulmonary disease, unspecified; Z68.22 Body mass index [BMI] 22.0-22.9, adult; Z93.1 Gastrostomy status; Z78.1 Physical restraint status; M81.0 Age-related osteoporosis without current pathological fracture; E78.5 Hyperlipidemia, unspecified; R62.7 Adult failure to thrive; G40.909 Epilepsy, unspecified, not intractable, without status epilepticus; R00.0 Tachycardia, unspecified; D72.829 Elevated white blood cell count, unspecified; E11.65 Type 2 diabetes mellitus with hyperglycemia; E87.6 Hypokalemia; E86.0 Dehydration; B96.5 Pseudomonas (aeruginosa) (mallei) (pseudomallei) as the cause of diseases classified elsewhere; B95.62 Methicillin resistant Staphylococcus aureus infection as the cause of diseases classified elsewhere; I10 Essential (primary) hypertension; D63.8 Anemia in other chronic diseases classified elsewhere; Z86.73 Personal history of transient ischemic attack (TIA), and cerebral infarction without residual deficits; Z85.46 Personal history of malignant neoplasm of prostate
CPT/HCPCS: 36415; 36600; 71010; 80048; 80053; 80061; 80076; 80202; 81003; 82270; 82378; 82533; 82550; 82553; 82607; 82728; 82746; 82803; 82962; 82977; 83540; 83550; 83605; 83735; 83880; 84100; 84153; 84443; 84484; 84550; 85007; 85025; 85610; 86140; 87040; 87070; 87086; 87181; 87205; 93306; 93970; 94002; 94003; 94640; 94664; 94760; 99291; J1815; J7620; S5561

== ENCOUNTER 2017-08-25 15:00 | Inpatient (IN) | payer MEDICARE, MEDICAID ==
[~2017-08-25] VITALS: Ht 182.9 cm; Wt 63.5 kg
[~2017-08-25 15:00] MED LIST changes: +ALBUTEROL2.5 MG/3 M INH; +CRANBERRY300 MG GT; +MIDODRINE HCL10 MG GT; +MIRALAX17 G2 GT; +MULTIVITAM9 MG/15 M1 GT; +OMEPRAZOLE20 M2 GT; +ZOFRAN4 M3 GT
[2017-08-25 15:05] VITALS: BP 116/70
[2017-08-25] MEDS ORDERED: Cefepime HCl 1 GM in NS 55 ML IV STA (15:06)
--- NOTE | 2017-08-25 15:13 | Emergency Room Report ---
History of Present Illness General Chief Complaint: General Complaint Source: Medical Record, EMS Present Illness HPI The patient presents with a blocked suprapubic catheter. In addition to that he 's been shaking. The patient is unable to provide medical history. The patient is from a [facility] facility. Apparently is a full code. H/O recurrent blockages of suprapubic cath with prior admissions for sepsis. D/C 07/21/17 with these diagnoses: 1. Sepsis with septic shock, resolved. 2. Acute respiratory failure requiring intubation status post extubation. 3. Complicated urinary tract infection with methicillin-sensitive Staphylococcus aureus and Pseudomonas. 4. Pneumonia. 5. Prostate cancer. 6. Anemia secondary to chronic disease. 7. Gastrostomy tube feed. 8. Alzheimer's dementia. 9. Severe protein-calorie malnutrition. 10. Possible acute myocardial infarction. 11. Dehydration. 12. Dysphagia on gastrostomy tube. 13. Hypokalemia. 14. Oliguria. 15. Diabetes mellitus type 2. 16. Sacrococcygeal stage II pressure ulcer, left lateral fifth metatarsal deep tissue injury pressure ulcer, and left heel unstageable pressure ulcer, present on admission. Allergies: Coded Allergies: No Known Allergies (Verified , 09/26/12) Patient History Limited by: medical condition Past Medical History: see triage record, old chart reviewed Social History Narrative SNF Reviewed Nursing Documentation: PMH: Agreed, PSxH: Agreed Nursing Documentation-PMH Hx Cardiac Problems: Yes - Atherosclerosis, Hyperlipidemia Hx Hypertension: Yes Hx COPD: Yes Hx Cancer: Yes Hx Gastrointestinal Problems: Yes - Obstructive Uropathy Hx Neurological Problems: Yes - Glaucoma, Osteoporosis Hx Cerebrovascular Accident: Yes Hx Dementia: Yes Hx Alzheimer's Disease: Yes Hx Seizures: Yes Hx Concentration Difficulty: Yes Hx Speech Problem: Yes Hx Dysphasia: Yes Hx Weakness: Yes Review of Systems All Other Systems: limited Physical Exam Vital Signs Date Time Temp Pulse Resp B/P (MAP) Pulse Ox O2 Delivery O2 Flow Rate FiO2 08/25/17 14:57 100.8 106 24 134/80 90 Nasal Cannula 2.0 Sp02 EP Interpretation: reviewed, abnormal - interpreted as low by me General Appearance: Chronically Ill, Stupor Head: normocephalic Eyes: bilateral eye normal inspection ENT: dry mucus membranes Neck: supple Respiratory: crackles - more on R Cardiovascular #1: tachycardia Cardiovascular #2: 2+ radial (R) Gastrointestinal: normal inspection, normal bowel sounds, non tender, no mass, non-distended, other - G tube Genitourinary: other - suprapubic cath Musculoskeletal: back normal, other - flaccid Neurologic: motor weakness - more L hand use than R, atrophy, other - unresponsive to pain Psychiatric: other - stupor Reflexes: 1+ knee (R), 1+ knee (L) Skin: warm/dry, other - decubiti - sacrum stage 3-4, heel stage 3-4 Procedures Additional Procedure Procedure Narrative Suprapubic cath: Removed old catheter. Some blood (minimal) Prepped and draped. Cath inserted with ease. Medical Decision Making Diagnostic Impression: Primary Impression: Sepsis Qualified Codes: A41.9 - Sepsis, unspecified organism Additional Impressions: UTI (urinary tract infection) Qualified Codes: T83.510A - Infection and inflammatory reaction due to cystostomy catheter, initial encounter; N39.0 - Urinary tract infection, site not specified Suprapubic catheter dysfunction Qualified Codes: T83.010A - Breakdown (mechanical) of cystostomy catheter, initial encounter ER Course Patient presents with fever tachycardia and a blocked suprapubic catheter. Differential includes sepsis, UTI, urinary retention, acute renal failure amongst others. Evaluation EKG, chest x-ray and labs. A suprapubic catheter will be replaced. EKG had sinus tachycardia. CXR Labs with elevated WBC, BUN. Pyuria. Antibiotics begun for coverage of both urine and lungs. Improved with treatment. Admit Dr. Champ hauser. Laboratory Tests Test 08/25/17 15:25 08/25/17 16:00 White Blood Count 11.1 K/UL (4.8-10.8) H Red Blood Count 4.02 M/UL (4.70-6.10) L Hemoglobin 11.5 G/DL (14.2-18.0) L Hematocrit 35.1 % (42.0-52.0) L Mean Corpuscular Volume 87 FL (80-99) Mean Corpuscular Hemoglobin 28.5 PG (27.0-31.0) Mean Corpuscular Hemoglobin Concent 32.6 G/DL (32.0-36.0) Red Cell Distribution Width 13.9 % (11.6-14.8) Platelet Count 438 K/UL (150-450) Mean Platelet Volume 7.3 FL (6.5-10.1) Neutrophils (%) (Auto) 60.9 % (45.0-75.0) Lymphocytes (%) (Auto) 20.1 % (20.0-45.0) Monocytes (%) (Auto) 9.0 % (1.0-10.0) Eosinophils (%) (Auto) 8.7 % (0.0-3.0) H Basophils (%) (Auto) 1.3 % (0.0-2.0) Prothrombin Time 10.2 SEC (9.30-11.50) Prothrombin Time INR 1.0 (0.9-1.1) PTT 26 SEC (23-33) Sodium Level 138 MMOL/L (136-145) Potassium Level 4.4 MMOL/L (3.5-5.1) Chloride Level 100 MMOL/L (98-107) Carbon Dioxide Level 33 MMOL/L (21-32) H Anion Gap 5 mmol/L (5-15) Blood Urea Nitrogen 41 mg/dL (7-18) H Creatinine 0.7 MG/DL (0.55-1.30) Estimate Glomerular Filtration Rate mL/min (>60) Glucose Level 107 MG/DL (74-106) H Lactic Acid Level 1.40 mmol/L (0.66-2.22) Calcium Level 10.0 MG/DL (8.5-10.1) Phosphorus Level 3.3 MG/DL (2.5-4.9) Magnesium Level 2.0 MG/DL (1.8-2.4) Total Bilirubin 0.2 MG/DL (0.2-1.0) Aspartate Amino Transferase (AST) 18 U/L (15-37) Alanine Aminotransferase (ALT) 18 U/L (12-78) Alkaline Phosphatase 94 U/L (46-116) Total Creatine Kinase 42 U/L (26-308) Creatine Kinase MB 0.9 NG/ML (0.0-3.6) Creatine Kinase MB Relative Index 2.1 Troponin I 0.028 ng/mL (0.000-0.056) Pro-B-Type Natriuretic Peptide 503 pg/mL (0-125) H Total Protein 7.9 G/DL (6.4-8.2) Albumin 2.5 G/DL (3.4-5.0) L Globulin 5.4 g/dL Albumin/Globulin Ratio 0.5 (1.0-2.7) L Lipase 90 U/L (73-393) Urine Color Brown Urine Appearance Slightly cloudy Urine pH 8 (4.5-8.0) Urine Specific [place] 1.010 (1.005-1.035) Urine Protein 3+ (NEGATIVE) H Urine Glucose (UA) Negative (NEGATIVE) Urine Ketones Negative (NEGATIVE) Urine Occult Blood 5+ (NEGATIVE) H Urine Nitrite Negative (NEGATIVE) Urine Bilirubin Negative (NEGATIVE) Urine Urobilinogen 1 MG/DL (0.0-1.0) H Urine Leukocyte Esterase 3+ (NEGATIVE) H Urine RBC 10-15 /HPF (0 - 0) H Urine WBC 5-10 /HPF (0 - 0) H Urine Squamous Epithelial Cells None /LPF (NONE/OCC) Urine Amorphous Sediment Few /LPF (NONE) H Urine Bacteria Many /HPF (NONE) H EKG Diagnostic Results Rate: tachycardiac ST Segments: no acute changes Rhythm Strip Diag. Results EP Interpretation: yes Rhythm: NSR, no PVC's, no ectopy Chest X-Ray Diagnostic Results Chest X-Ray Diagnostic Results : Chest X-Ray Ordered: Yes # of Views/Limited/Complete: 1 View Indication: Other EP Interpretation: Yes Interpretation: no pneumothorax, other - COPD Impression: Other Electronically Signed by: Kevin Schneider MD Last Vital Signs Date Time Temp Pulse Resp B/P (MAP) Pulse Ox O2 Delivery O2 Flow Rate FiO2 08/26/17 04:00 91 08/26/17 00:00 98.1 19 112/71 92 Room Air 08/25/17 19:11 3.0 Status: improved Disposition: ADMITTED INPATIENT Condition: Serious Kevin Schneider M.D. Aug 25, 2017 15:13
[2017-08-25] MEDS ORDERED: Vancomycin 1 GM in NS 275 ML IV ONE (15:15)
[2017-08-25] MEDS ORDERED: NS 1000ml 1,900 ML IVLG ONE (15:15)
[2017-08-25] MEDS ORDERED: Acetaminophen 650 MG SUPP RECTAL ONE (15:15)
[2017-08-25] MEDS ORDERED: HUMALOG100 UNIT/4 SUBQ (15:21)
[2017-08-25] MEDS ORDERED: VITAMIN C500 M1 ORAL (15:21)
[2017-08-25 16:01] LABS: BASOPHILS % (AUTO) 1.3 % (0.0-2.0); EOSINOPHILS % (AUTO) 8.7 % (0.0-3.0); HEMATOCRIT 35.1 % (42.0-52.0); HEMOGLOBIN 11.5 G/DL (14.2-18.0); LYMPHOCYTES % (AUTO) 20.1 % (20.0-45.0); MEAN CORPUSCULAR VOLUME 87 FL (80-99); NEUTROPHILS % (AUTO) 60.9 % (45.0-75.0); PLATELET COUNT 438 K/UL (150-450); RED BLOOD COUNT 4.02 M/UL (4.70-6.10); RED CELL DISTRIBUTION WIDTH 13.9 % (11.6-14.8); WHITE BLOOD COUNT 11.1 K/UL (4.8-10.8)
[2017-08-25] MEDS ORDERED: Cefepime 1gm vial ONE (16:19)
[2017-08-25 16:25] LABS: ANION GAP 5 mmol/L (5-15); BLOOD UREA NITROGEN 41 mg/dL (7-18); CARBON DIOXIDE 33 MMOL/L (21-32); CHLORIDE 100 MMOL/L (98-107); CREATININE 0.7 MG/DL (0.55-1.30); POTASSIUM 4.4 MMOL/L (3.5-5.1); SODIUM 138 MMOL/L (136-145)
[2017-08-25 16:30] VITALS: BP 108/49
[2017-08-25 16:38] LABS: ALANINE AMINOTRANSFERASE 18 U/L (12-78); ALBUMIN 2.5 G/DL (3.4-5.0); ALBUMIN/GLOBULIN RATIO 0.5 (1.0-2.7); ALKALINE PHOSPHATASE 94 U/L (46-116); ASPARTATE AMINO TRANSFERASE 18 U/L (15-37); BILIRUBIN,TOTAL 0.2 MG/DL (0.2-1.0); CKMB 0.9 NG/ML (0.0-3.6); CREATINE KINASE 42 U/L (26-308); PHOSPHORUS 3.3 MG/DL (2.5-4.9)
[2017-08-25 16:51] LABS: APPEARANCE,URINE SLIGHTLY CLOUDY; BILIRUBIN, URINE NEGATIVE (NEGATIVE); GLUCOSE, URINE (UA) NEGATIVE (NEGATIVE); KETONES,URINE NEGATIVE (NEGATIVE); LEUKOCYTE ESTERASE ,URINE 3+ (NEGATIVE); NITRITE,URINE NEGATIVE (NEGATIVE); PH,URINE 8 (4.5-8.0); PROTEIN,URINE 3+ (NEGATIVE); UROBILINOGEN,URINE 1 MG/DL (0.0-1.0)
[2017-08-25 16:53] LABS: COLOR,URINE BROWN
[2017-08-25 18:30] VITALS: BP 125/88
[2017-08-25] MEDS ORDERED: Vancomycin 1gm inj IVPB ONE (18:38)
[2017-08-25] MEDS ORDERED: NS 275 ML ONE (18:40)
[2017-08-25 19:11] VITALS: BP 109/74
[2017-08-25 20:21] VITALS: BP 110/68
[2017-08-26] VITALS: BP 112/71
[2017-08-26] MEDS ORDERED: Miralax 17gm pkt ORAL PRN (00:30)
[2017-08-26] MEDS ORDERED: Albuterol ud Inhalation HHN PRN (00:30)
[2017-08-26] MEDS: Heparin 5000 units/ml inj SUBQ SCH ×3 (06:23→22:00)
[2017-08-26] MEDS ORDERED: NovoLOG Insulin Flexpen SUBQ SCH (06:30)
[2017-08-26 08:00] VITALS: BP 154/65
[2017-08-26] MEDS: Midodrine 10mg tab ORAL SCH ×3 (08:36→18:01)
[2017-08-26] MEDS: Multivitamins W/Minerals 15 ML UDC GT SCH (08:36)
[2017-08-26] MEDS: Ascorbic Acid 500mg tab ORAL SCH (08:37)
--- NOTE | 2017-08-26 09:07 | Diagnostic Imaging Report ---
Indication: WEAK Technique: XRAY Chest 1v Comparison: 07/19/2017 Findings: Heart size and mediastinal contours are stable. There is small left pleural effusion and left basilar atelectasis/consolidation. No pneumothorax. Mild pulmonary vascular congestion. No acute osseous abnormality. IMPRESSION: Cardiomegaly and congestive changes. Small left pleural effusion and left basilar atelectasis/consolidation. Clinical correlation and follow-up exam recommended. Study obtained via the emergency department however patient admitted to the hospital at time of dictation of the final report.
[2017-08-26] MEDS: NovoLOG Insulin Flexpen SUBQ SCH ×3 (11:30→21:00)
[2017-08-26 12:00] VITALS: BP 132/59
[2017-08-26] MEDS: Cefepime HCl 1 GM in NS 55 ML IVPB SCH ×2 (13:17→21:00)
[2017-08-26 16:00] VITALS: BP 137/72
[2017-08-26] MEDS: Vancomycin 750mg/NS 250ml IVPB SCH (16:52)
[2017-08-26 20:00] VITALS: BP 135/98
--- NOTE | 2017-08-26 20:51 | General Progress Note ---
Assessment/Plan Problem List: (1) Hypernatremia ICD Codes: E87.0 - Hyperosmolality and hypernatremia SNOMED: 29935396 (2) Cachexia ICD Codes: R64 - Cachexia SNOMED: 702982591 (3) Dementia ICD Codes: F03.90 - Unspecified dementia without behavioral disturbance SNOMED: 00971482 (4) Seizure ICD Codes: R56.9 - Unspecified convulsions SNOMED: 81178588 (5) Prostate cancer ICD Codes: C61 - Malignant neoplasm of prostate SNOMED: 588503305 (6) Suprapubic catheter ICD Codes: Z93.59 - Other cystostomy status SNOMED: 703913852, 039795066 (7) Catheter-associated urinary tract infection ICD Codes: T83.511A - Infection and inflammatory reaction due to indwelling urethral catheter, initial encounter; N39.0 - Urinary tract infection, site not specified SNOMED: 931868758 (8) Diabetes mellitus ICD Codes: E11.9 - Type 2 diabetes mellitus without complications SNOMED: 01835100 (9) G tube feedings ICD Codes: Z93.1 - Gastrostomy status SNOMED: 197007936, 975094375 (10) Electrolyte abnormality ICD Codes: E87.8 - Other disorders of electrolyte and fluid balance, not elsewhere classified SNOMED: 302088461 (11) Dehydration ICD Codes: E86.0 - Dehydration SNOMED: 59453356 (12) UTI (urinary tract infection) ICD Codes: N39.0 - Urinary tract infection, site not specified SNOMED: 90366709 Qualifiers: Qualified Codes: T83.510A - Infection and inflammatory reaction due to cystostomy catheter, initial encounter; N39.0 - Urinary tract infection, site not specified (13) Suprapubic catheter dysfunction ICD Codes: T83.010A - Breakdown (mechanical) of cystostomy catheter, initial encounter SNOMED: 620288182 Qualifiers: Qualified Codes: T83.010A - Breakdown (mechanical) of cystostomy catheter, initial encounter (14) Sepsis ICD Codes: A41.9 - Sepsis, unspecified organism SNOMED: 09493923 Qualifiers: Qualified Codes: A41.9 - Sepsis, unspecified organism Status: progressing Assessment/Plan the dictation service is down so let this serve as h&p since the dictation system is down and can not dictate patient is poor historian and came for clogged suprapupic cath and admitted for uti and sepsis and dehyration patient has dm ,prostate cancer dementia of alzhiemer type anemia cad htn peg suprapubic cath was exchanged more lethargic than baseline consulted dr eaton for suprpubic cath change and dr jarrett for uti and sepsis and for abx selection and dr campa for dehydration treatment let this serve as h&p since dictation system is down Subjective ROS Limited/Unobtainable: Yes Allergies: Coded Allergies: No Known Allergies (Verified , 09/26/12) Objective Last 24 Hour Vital Signs Date Time Temp Pulse Resp B/P (MAP) Pulse Ox O2 Delivery O2 Flow Rate FiO2 08/26/17 17:34 98 Nasal Cannula 2.0 28 08/26/17 17:34 Nasal Cannula 2.0 28 08/26/17 16:00 89 08/26/17 16:00 98.1 80 20 137/72 95 Nasal Cannula 2.0 08/26/17 12:00 96.8 92 20 132/59 98 Nasal Cannula 2.0 08/26/17 12:00 88 08/26/17 08:00 89 08/26/17 08:00 97.9 85 20 154/65 95 Nasal Cannula 2.0 08/26/17 04:00 91 08/26/17 00:00 98.1 103 19 112/71 92 Room Air 08/26/17 00:00 98 Intake and Output 08/25/17 08/26/17 19:00 07:00 Intake Total 1830 ml Output Total 800 ml Balance 1030 ml Intake Oral 0 ml IV Total 1830 ml Output Urine Total 800 ml Height (Feet): 6 Height (Inches): 0.00 Weight (Pounds): 140 General Appearance: confused Cardiovascular: normal rate Respiratory/Chest: lungs clear Abdomen: soft Sary Oakes MD Aug 26, 2017 20:51
[2017-08-26] MEDS ORDERED: Vitamin A&D Oint 2oz Tube TOPIC SCH (21:00)
[2017-08-27] VITALS (7 sets, daily range): BP systolic 90–146; BP diastolic 50–97
[2017-08-27] MEDS: Vancomycin 750mg/NS 250ml IVPB SCH (04:00)
[2017-08-27] MEDS: NovoLOG Insulin Flexpen SUBQ SCH ×4 (06:30→20:58)
[2017-08-27] MEDS: Heparin 5000 units/ml inj SUBQ SCH ×3 (08:31→20:59)
[2017-08-27] MEDS: Midodrine 10mg tab ORAL SCH ×3 (08:32→17:25)
[2017-08-27] MEDS: Multivitamins W/Minerals 15 ML UDC GT SCH (08:33)
[2017-08-27] MEDS: Ascorbic Acid 500mg tab ORAL SCH (08:33)
--- NOTE | 2017-08-27 09:02 | Consultation ---
History of Present Illness General Date patient seen: Aug 26, 2017 Time patient seen: 12:15 Chief Complaint: General Complaint Reason for Consultation: SP tube obstruction, UTI Present Illness HPI 76 yo male with recurrent UTI due to SP tube and co-morbidities. Unsure last time it was changed. Presented to ER with obstructed SP tube, changed successfully in ER. Admitted for UTI/sepsis workup. Non-communicative. Allergies: Coded Allergies: No Known Allergies (Verified , 09/26/12) Medication History Scheduled Ascorbic Acid* (Vitamin C*), 500 MG ORAL DAILY, (Reported) Cranberry Extract (Cranberry), Unknown Dose GT BID, (Reported) Heparin Sod (Porcine) (Heparin Sodium*), 5,000 UNITS SUBQ EVERY 8 HOURS, ( Reported) Midodrine* (Proamatine*), 10 MG GT THREE TIMES A DAY, (Reported) Multivits W-Min/Ferrous Gluc (Multivitamin-Mineral Liquid), 15 ML GT DAILY, ( Reported) Omeprazole (Omeprazole), 20 MG GT DAILY, (Reported) Scheduled PRN Acetaminophen (Acetaminophen), 650 MG GT Q4HR PRN for For Pain, (Reported) Albuterol Sulfate* (Albuterol Sulfate Hhn*), 0.63 MG INH Q4H PRN for Shortness of Breath, (Reported) Ondansetron* (Zofran*), 4 MG GT Q6H PRN for Nausea & Vomiting, (Reported) Polyethylene Glycol 3350* (Miralax*), 17 GM GT DAILY PRN for Constipation, ( Reported) Miscellaneous Medications Insulin Lispro (Humalog), 0 SUBQ, (Reported) Patient History Limited by: language barrier, medical condition History Provided By: Medical Record Healthcare decision maker N Resuscitation status Full Code Advanced Directive on File Past Medical/Surgical History Past Medical/Surgical History: (1) Anemia (2) COPD (chronic obstructive pulmonary disease) (3) Cachexia (4) Dehydration Review of Systems All Other Systems: negative except mentioned in HPI Physical Exam General Appearance: no apparent distress HEENT: normocephalic, atraumatic Cardiovascular/Chest: normal rate, regular rhythm Abdomen: soft, other - SP Tube in place, draining clear yellow urine Genitourinary/Rectal: normal genital exam Last 24 Hour Vital Signs Date Time Temp Pulse Resp B/P (MAP) Pulse Ox O2 Delivery O2 Flow Rate FiO2 2/2/18 08:20 Nasal Cannula 2.0 28 08/27/17 08:20 82 20 Nasal Cannula 2.0 28 08/27/17 08:20 97 Nasal Cannula 2.0 28 08/27/17 08:00 98.2 90 19 136/90 98 08/27/17 04:00 97.0 56 16 146/78 90 08/27/17 04:00 90 08/27/17 00:00 93 08/27/17 00:00 97.9 105 20 114/70 95 08/26/17 20:57 95 Nasal Cannula 2.0 28 08/26/17 20:57 Nasal Cannula 2.0 28 08/26/17 20:56 84 20 Nasal Cannula 2.0 28 08/26/17 20:00 76 08/26/17 20:00 98.2 83 20 135/98 93 Nasal Cannula 2.0 08/26/17 20:00 98.2 83 20 135/98 93 08/26/17 17:34 98 Nasal Cannula 2.0 28 08/26/17 17:34 Nasal Cannula 2.0 28 08/26/17 16:00 89 08/26/17 16:00 98.1 80 20 137/72 95 Nasal Cannula 2.0 08/26/17 12:00 96.8 92 20 132/59 98 Nasal Cannula 2.0 08/26/17 12:00 88 Intake and Output 08/26/17 08/27/17 19:00 07:00 Output Total 600 ml Balance -600 ml Output Urine Total 600 ml # Bowel Movements 1 2 Height (Feet): 6 Height (Inches): 0.00 Weight (Pounds): 140 Medications Current Medications Medications (Trade) Dose Ordered Sig/Matt Route PRN Reason Start Time Stop Time Status Last Admin Dose Admin Acetaminophen (Tylenol) 650 mg Q4H PRN ORAL Mild Pain/Temp > 100.5 08/25/17 23:30 09/24/17 23:29 Albuterol Sulfate (Proventil) 2.5 mg Q4H PRN HHN congestion 08/26/17 00:30 08/31/17 00:29 Ascorbic Acid (Vitamin C) 500 mg DAILY ORAL 08/26/17 09:00 09/25/17 08:59 08/27/17 08:33 Cefepime HCl 1 gm/ Sodium Chloride 55 ml @ 110 mls/hr EVERY 12 HOURS IVPB 08/26/17 13:00 09/02/17 12:59 08/26/17 21:00 Clotrimazole (Lotrimin) 1 applic EVERY 12 HOURS TOPIC 08/26/17 21:00 09/25/17 20:59 08/26/17 21:00 Dextrose (Dextrose 50%) STAT PRN IV Hypoglycemia 08/26/17 00:30 09/25/17 00:29 Heparin Sodium (Porcine) (Heparin 5000 units/ml) 5,000 units Q8HR SUBQ 08/26/17 06:00 09/25/17 05:59 08/27/17 08:31 Insulin Aspart (NovoLOG) BEFORE MEALS AND HS SUBQ 08/26/17 11:30 09/25/17 11:29 Lansoprazole (Prevacid) 30 mg DAILY GT 08/26/17 09:00 09/25/17 08:59 08/27/17 08:32 Midodrine (Pro-Amatine) 10 mg THREE TIMES A DAY ORAL 08/26/17 09:00 09/25/17 08:59 08/27/17 08:32 Multivitamins (Multivitamins W/ Minerals 15ml Liquid) 15 ml DAILY GT 08/26/17 09:00 09/25/17 08:59 08/27/17 08:33 Ondansetron HCl (Zofran) 4 mg Q6H PRN IVP Nausea & Vomiting 08/26/17 00:30 09/25/17 00:29 Polyethylene Glycol (Miralax) 17 gm DAILY PRN ORAL Constipation 08/26/17 00:30 09/25/17 00:29 Vancomycin HCl (Vanco rx to dose) 1 ea DAILY PRN MISC Per rx protocol 08/26/17 15:15 09/25/17 15:14 Vancomycin/Sodium Chloride 250 ml @ 166.667 mls/hr Q12HR@0400,1600 IVPB 08/26/17 16:00 08/31/17 15:59 08/27/17 04:00 Assessment/Plan Status: stable Assessment/Plan 76 yo male with SP tube obstruction and likely UTI. SP tube was changed successfully. Treat per cultures. 1. SP tube should be changed every 4-6 weeks Juan Alberto Herring M.D. Aug 27, 2017 09:02
[2017-08-27] MEDS: Cefepime HCl 1 GM in NS 55 ML IVPB SCH ×2 (10:01→20:56)
--- NOTE | 2017-08-27 10:45 | Infectious Diseases Prog Note ---
Assessment/Plan Assessment/Plan A; Sepsis Bacteremia Complicated UTI s/p suprapubic catheter Dementia P: Continue Cefepime & Vancomycin will f/u cultures Subjective ROS Limited/Unobtainable: Yes Allergies: Coded Allergies: No Known Allergies (Verified , 09/26/12) Objective Vital Signs Last 24 Hour Vital Signs Date Time Temp Pulse Resp B/P (MAP) Pulse Ox O2 Delivery O2 Flow Rate FiO2 08/27/17 08:20 Nasal Cannula 2.0 28 08/27/17 08:20 82 20 Nasal Cannula 2.0 28 08/27/17 08:20 97 Nasal Cannula 2.0 28 08/27/17 08:00 89 08/27/17 08:00 98.2 90 19 136/90 98 08/27/17 04:00 97.0 56 16 146/78 90 08/27/17 04:00 90 08/27/17 00:00 93 08/27/17 00:00 97.9 105 20 114/70 95 08/26/17 20:57 95 Nasal Cannula 2.0 28 08/26/17 20:57 Nasal Cannula 2.0 28 08/26/17 20:56 84 20 Nasal Cannula 2.0 28 08/26/17 20:00 76 08/26/17 20:00 98.2 83 20 135/98 93 Nasal Cannula 2.0 08/26/17 20:00 98.2 83 20 135/98 93 08/26/17 17:34 98 Nasal Cannula 2.0 28 08/26/17 17:34 Nasal Cannula 2.0 28 08/26/17 16:00 89 08/26/17 16:00 98.1 80 20 137/72 95 Nasal Cannula 2.0 08/26/17 12:00 96.8 92 20 132/59 98 Nasal Cannula 2.0 08/26/17 12:00 88 Height (Feet): 6 Height (Inches): 0.00 Weight (Pounds): 140 General Appearance: no acute distress HEENT: mucous membranes moist Respiratory/Chest: lungs clear Cardiovascular: normal rate Abdomen: soft, non tender, other - GT feeding Genitourinary: other - suprapubic catheter Extremities: no edema Neurologic/Psychiatric: unresponsiveness, aphasia Microbiology Date/Time Source Procedure Growth Status 08/25/17 15:25 Blood Blood Culture - Preliminary Gram Positive Cocci Resulted 08/25/17 15:15 Blood Blood Culture - Preliminary Resulted 08/25/17 16:00 Urine,Clean Catch Urine Culture - Final Proteus Mirabilis Complete Current Medications Medications (Trade) Dose Ordered Sig/Matt Route PRN Reason Start Time Stop Time Status Last Admin Dose Admin Acetaminophen (Tylenol) 650 mg Q4H PRN ORAL Mild Pain/Temp > 100.5 08/25/17 23:30 09/24/17 23:29 Albuterol Sulfate (Proventil) 2.5 mg Q4H PRN HHN congestion 08/26/17 00:30 08/31/17 00:29 Ascorbic Acid (Vitamin C) 500 mg DAILY ORAL 08/26/17 09:00 09/25/17 08:59 08/27/17 08:33 Cefepime HCl 1 gm/ Sodium Chloride 55 ml @ 110 mls/hr EVERY 12 HOURS IVPB 08/26/17 13:00 09/02/17 12:59 08/27/17 10:01 Clotrimazole (Lotrimin) 1 applic EVERY 12 HOURS TOPIC 08/26/17 21:00 09/25/17 20:59 08/27/17 10:04 Dextrose (Dextrose 50%) STAT PRN IV Hypoglycemia 08/26/17 00:30 09/25/17 00:29 Heparin Sodium (Porcine) (Heparin 5000 units/ml) 5,000 units Q8HR SUBQ 08/26/17 06:00 09/25/17 05:59 08/27/17 08:31 Insulin Aspart (NovoLOG) BEFORE MEALS AND HS SUBQ 08/26/17 11:30 09/25/17 11:29 Lansoprazole (Prevacid) 30 mg DAILY GT 08/26/17 09:00 09/25/17 08:59 08/27/17 08:32 Midodrine (Pro-Amatine) 10 mg THREE TIMES A DAY ORAL 08/26/17 09:00 09/25/17 08:59 08/27/17 08:32 Multivitamins (Multivitamins W/ Minerals 15ml Liquid) 15 ml DAILY GT 08/26/17 09:00 09/25/17 08:59 08/27/17 08:33 Ondansetron HCl (Zofran) 4 mg Q6H PRN IVP Nausea & Vomiting 08/26/17 00:30 09/25/17 00:29 Polyethylene Glycol (Miralax) 17 gm DAILY PRN ORAL Constipation 08/26/17 00:30 09/25/17 00:29 Vancomycin HCl (Vanco rx to dose) 1 ea DAILY PRN MISC Per rx protocol 08/26/17 15:15 09/25/17 15:14 Vancomycin/Sodium Chloride 250 ml @ 166.667 mls/hr Q12HR@0400,1600 IVPB 08/26/17 16:00 08/31/17 15:59 08/27/17 04:00 BREANNE CERVANTES Aug 27, 2017 10:45
[2017-08-27 12:40] LABS: BASOPHILS % (AUTO) 2.1 % (0.0-2.0); EOSINOPHILS % (AUTO) 14.3 % (0.0-3.0); HEMATOCRIT 37.5 % (42.0-52.0); HEMOGLOBIN 12.5 G/DL (14.2-18.0); LYMPHOCYTES % (AUTO) 16.7 % (20.0-45.0); MEAN CORPUSCULAR VOLUME 87 FL (80-99); MONOCYTES % (AUTO) 10.2 % (1.0-10.0); NEUTROPHILS % (AUTO) 56.7 % (45.0-75.0); PLATELET COUNT 258 K/UL (150-450); RED BLOOD COUNT 4.31 M/UL (4.70-6.10); WHITE BLOOD COUNT 6.3 K/UL (4.8-10.8)
[2017-08-27 12:53] LABS: ALANINE AMINOTRANSFERASE 15 U/L (12-78); ALBUMIN 2.3 G/DL (3.4-5.0); ALBUMIN/GLOBULIN RATIO 0.6 (1.0-2.7); ALKALINE PHOSPHATASE 86 U/L (46-116); ANION GAP 8 mmol/L (5-15); ASPARTATE AMINO TRANSFERASE 18 U/L (15-37); BILIRUBIN,TOTAL 0.4 MG/DL (0.2-1.0); BLOOD UREA NITROGEN 22 mg/dL (7-18); CALCIUM 9.6 MG/DL (8.5-10.1); CARBON DIOXIDE 29 MMOL/L (21-32); CHLORIDE 102 MMOL/L (98-107); CREATININE 0.6 MG/DL (0.55-1.30); POTASSIUM 4.7 MMOL/L (3.5-5.1); SODIUM 139 MMOL/L (136-145)
--- NOTE | 2017-08-27 12:55 | Consultation ---
DATE OF CONSULTATION: 08/26/2017 INFECTIOUS DISEASE CONSULTATION CONSULTING PHYSICIAN: Rosales Miramontes M.D. PRIMARY ATTENDING PHYSICIAN: Sary Oakes M.D. REASON FOR CONSULTATION: Sepsis with complicated urinary tract infection. HISTORY OF PRESENT ILLNESS: The patient is a 76-year-old white male who is a [facility] resident admitted yesterday because of plugging of a suprapubic catheter. The patient has fever of 100.8 in the ER. Catheter was changed. The patient also has leukocytosis. He is not source of history. PAST MEDICAL HISTORY: Significant for Alzheimer dementia, prostatic cancer status post suprapubic catheter, status post G-tube, diabetes mellitus type 2, history of CVA, glaucoma, osteoporosis. ALLERGIES: No known drug allergies. MEDICATIONS: Getting insulin, vitamin C, midodrine, multivitamin, Prevacid, heparin, Proventil, Zofran, get dose of IV vancomycin and cefepime in the ER. SOCIAL HISTORY: [facility] resident, single. No history of alcohol, drug abuse, or smoking. No other history obtainable. PHYSICAL EXAMINATION: VITAL SIGNS: Temperature 97.9, pulse 85, blood pressure 154/65. GENERAL APPEARANCE: No acute distress, moaning. HEAD AND NECK: Getting oxygen by nasal cannula, resists eye opening. HEART: Regular. Normal rate. LUNGS: Clear. ABDOMEN: Soft. There is G-tube in place. There is a suprapubic catheter. EXTREMITIES: He has no edema. LABORATORY AND DIAGNOSTIC DATA: Sodium 138, potassium 4.4, chloride 100, bicarbonate 33, BUN 41, creatinine 0.7, glucose 107. WBC 11.1, hemoglobin 11.5, hematocrit 35.1, platelets 438. UA showed WBCs 5 to 10, RBCs 10 to 15, leukocyte esterase 2+, protein 2+. IMPRESSION: 1. Sepsis with fever. 2. Tachycardia and tachypnea at the time of admission. Source seems to be complicated urinary tract infection. 3. Diabetes mellitus type 2. 4. Advanced dementia. 5. Status post G-tube. 6. Status post urostomy with catheter. RECOMMENDATIONS: 1. We will start the patient on cefepime. 2. We will follow up the cultures. At the end of my exam, I thank Dr. Oakes for involving me in the care of this patient. Rosales Miramontes M.D. DR: Charles JOB#: [id number] CC:
[2017-08-27] MEDS: Vancomycin 750mg/NS 250ml 250 ML IVPB SCH (17:10)
--- NOTE | 2017-08-27 18:50 | Wound Care Consultation ---
Wound Assessment Wound Assessment #1: Wound Number: 1 Wound Present on Admission: Yes New Wound: No Status Change of Wound: No Wound Location Body Site Modif: mid Wound Location Body Site: other - sacrococcygeal Wound Type: pressure ulcer Bruce Test: Does not Bruce Pressure Ulcer Stage: Unstageable - scattered Wound Thickness: Full Thickness Wound Length: 4.5 Wound Width: 4.5 Wound Depth: utd Percent of Wound Bed Yellow/Wh: 60 Percent of Wound Purple/Maroon: 40 Wound Drainage Amount: None Wound Drainage Odor: None/Absent Tissue Surrounding Wound: Macerated Wound General Appearance: Reddened - yellow,maroon Wound Assessment #2: Wound Number: 2 Wound Present on Admission: Yes New Wound: No Status Change of Wound: No Wound Location Body Site Modif: left Wound Location Body Site: heel Wound Type: pressure ulcer Bruce Test: Does not Bruce Pressure Ulcer Stage: Unstageable - dry Wound Thickness: Full Thickness Wound Length: 2.5 Wound Width: 2.5 Wound Depth: utd Percent of Wound Bed Yellow/Wh: 100 - dry Wound Drainage Amount: None Wound Drainage Odor: None/Absent Tissue Surrounding Wound: Intact Wound General Appearance: Reddened - yellow dry Wound Assessment #3: Wound Number: 3 Wound Present on Admission: Yes New Wound: No Status Change of Wound: No Wound Location Body Site Modif: right Wound Location Body Site: malleolus/ankle Wound Type: pressure ulcer Bruce Test: Does not Bruce Pressure Ulcer Stage: Deep Tissue Injury Wound Thickness: Full Thickness Wound Length: 2.5 Wound Width: 2.5 Wound Depth: utd Percent of Wound Purple/Maroon: 100 Wound Drainage Amount: None Wound Drainage Odor: None/Absent Tissue Surrounding Wound: Intact Wound General Appearance: Reddened - maroon Wound Assessment #4: Wound Number: 4 Wound Present on Admission: Yes New Wound: No Status Change of Wound: No Wound Location Body Site Modif: upper Wound Location Body Site: back Wound Type: rash Bruce Test: Does not Bruce Rashes: Mary/Yeast Percent of Wound [place]/Red: 100 Wound Drainage Amount: None Wound Drainage Odor: None/Absent Tissue Surrounding Wound: Intact Wound General Appearance: Reddened Wound Assessment #5: Wound Number: 5 Wound Present on Admission: Yes New Wound: No Status Change of Wound: No Wound Location Body Site: perineal area Wound Type: chemical burn Bruce Test: Does not Bruce Percent of Wound [place]/Red: 100 Wound Drainage Amount: None Wound Drainage Odor: None/Absent Tissue Surrounding Wound: Erythemic Wound General Appearance: Reddened Wound Comment #1 Sacrococcygeal scattered unstageable pressure ulcer. #2 Right malleolus DTI pressure ulcer #3 Left heel unstageable pressure ulcer, dry yellow scab adhered to wound bed pressure ulcer #4 Rashes on upper back #5 Chemical burn on perineal area Recommendation -Local wound care per protocol -Keep clean and dry -Optimize nutrition -Turn and reposition -Heel protector on both heels -Offload both heels -Low air loss mattress -Assess and f/u accordingly for any changes ROLANDO CLIFFORD RN Aug 27, 2017 18:50
--- NOTE | 2017-08-27 20:13 | General Progress Note ---
Assessment/Plan Problem List: (1) Hypernatremia ICD Codes: E87.0 - Hyperosmolality and hypernatremia SNOMED: 01674212 (2) Cachexia ICD Codes: R64 - Cachexia SNOMED: 801722422 (3) Dementia ICD Codes: F03.90 - Unspecified dementia without behavioral disturbance SNOMED: 14754262 (4) Seizure ICD Codes: R56.9 - Unspecified convulsions SNOMED: 83881757 (5) Prostate cancer ICD Codes: C61 - Malignant neoplasm of prostate SNOMED: 051521581 (6) Suprapubic catheter ICD Codes: Z93.59 - Other cystostomy status SNOMED: 736421321, 623049469 (7) Catheter-associated urinary tract infection ICD Codes: T83.511A - Infection and inflammatory reaction due to indwelling urethral catheter, initial encounter; N39.0 - Urinary tract infection, site not specified SNOMED: 315302721 (8) Diabetes mellitus ICD Codes: E11.9 - Type 2 diabetes mellitus without complications SNOMED: 66394691 (9) G tube feedings ICD Codes: Z93.1 - Gastrostomy status SNOMED: 014080904, 916528049 (10) Electrolyte abnormality ICD Codes: E87.8 - Other disorders of electrolyte and fluid balance, not elsewhere classified SNOMED: 760300873 (11) Dehydration ICD Codes: E86.0 - Dehydration SNOMED: 35946167 (12) UTI (urinary tract infection) ICD Codes: N39.0 - Urinary tract infection, site not specified SNOMED: 48544455 Qualifiers: Qualified Codes: T83.510A - Infection and inflammatory reaction due to cystostomy catheter, initial encounter; N39.0 - Urinary tract infection, site not specified (13) Suprapubic catheter dysfunction ICD Codes: T83.010A - Breakdown (mechanical) of cystostomy catheter, initial encounter SNOMED: 555917919 Qualifiers: Qualified Codes: T83.010A - Breakdown (mechanical) of cystostomy catheter, initial encounter (14) Sepsis ICD Codes: A41.9 - Sepsis, unspecified organism SNOMED: 02474475 Qualifiers: Qualified Codes: A41.9 - Sepsis, unspecified organism Status: progressing Assessment/Plan s/p suprapubic cath change uti dehyration improving afebrile lyte abnormality is improving reviewed chart and labs Subjective ROS Limited/Unobtainable: Yes Allergies: Coded Allergies: No Known Allergies (Verified , 09/26/12) Objective Last 24 Hour Vital Signs Date Time Temp Pulse Resp B/P (MAP) Pulse Ox O2 Delivery O2 Flow Rate FiO2 08/27/17 19:30 97.7 68 20 90/50 99 Room Air 08/27/17 16:44 Nasal Cannula 2.0 08/27/17 16:23 98.4 93 20 109/61 97 08/27/17 16:06 Nasal Cannula 2.0 08/27/17 12:00 97.5 97 19 118/62 97 08/27/17 08:20 Nasal Cannula 2.0 28 08/27/17 08:20 82 20 Nasal Cannula 2.0 28 08/27/17 08:20 97 Nasal Cannula 2.0 28 08/27/17 08:00 89 08/27/17 08:00 98.2 90 19 136/90 98 08/27/17 04:00 97.0 56 16 146/78 90 08/27/17 04:00 90 08/27/17 00:00 93 08/27/17 00:00 97.9 105 20 114/70 95 08/26/17 20:57 95 Nasal Cannula 2.0 28 08/26/17 20:57 Nasal Cannula 2.0 28 08/26/17 20:56 84 20 Nasal Cannula 2.0 28 Intake and Output 08/26/17 08/27/17 19:00 07:00 Output Total 600 ml Balance -600 ml Output Urine Total 600 ml # Bowel Movements 1 2 Laboratory Tests 08/27/17 12:00: White Blood Count 6.3, Red Blood Count 4.31L, Hemoglobin 12.5L, Hematocrit 37.5L , Mean Corpuscular Volume 87, Mean Corpuscular Hemoglobin 28.9, Mean Corpuscular Hemoglobin Concent 33.2, Red Cell Distribution Width 14.0, Platelet Count 258, Mean Platelet Volume 8.7, Neutrophils (%) (Auto) 56.7, Lymphocytes (% ) (Auto) 16.7L, Monocytes (%) (Auto) 10.2H, Eosinophils (%) (Auto) 14.3H, Basophils (%) (Auto) 2.1H, Sodium Level 139, Potassium Level 4.7, Chloride Level 102, Carbon Dioxide Level 29, Anion Gap 8, Blood Urea Nitrogen 22H, Creatinine 0.6, Estimat Glomerular Filtration Rate , Glucose Level 156H, Calcium Level 9.6, Total Bilirubin 0.4, Aspartate Amino Transf (AST/SGOT) 18, Alanine Aminotransferase (ALT/SGPT) 15, Alkaline Phosphatase 86, Total Protein 6.3L, Albumin 2.3L, Globulin 4.0, Albumin/Globulin Ratio 0.6L Height (Feet): 6 Height (Inches): 0.00 Weight (Pounds): 140 EENT: PERRL/EOMI, normal ENT inspection Cardiovascular: normal rate Respiratory/Chest: lungs clear Sary Oakes MD Aug 27, 2017 20:13
[2017-08-28 03:33] VITALS: BP 142/95
[2017-08-28] MEDS: Vancomycin 750mg/NS 250ml 250 ML IVPB SCH (04:13)
[2017-08-28] MEDS: Heparin 5000 units/ml inj SUBQ SCH ×3 (05:23→22:02)
[2017-08-28] MEDS: NovoLOG Insulin Flexpen SUBQ SCH ×4 (06:01→22:02)
[2017-08-28 08:38] VITALS: BP 122/67
[2017-08-28] MEDS ORDERED: Miralax 17gm pkt ORAL PRN (09:00)
[2017-08-28] MEDS: Midodrine 10mg tab ORAL SCH ×3 (09:00→17:03)
[2017-08-28] MEDS: Ascorbic Acid 500mg tab ORAL SCH (09:00)
[2017-08-28] MEDS: Cefepime HCl 1 GM in NS 55 ML IVPB SCH ×2 (09:46→21:01)
[2017-08-28] MEDS: Multivitamins W/Minerals 15 ML UDC GT SCH (09:47)
[2017-08-28 12:02] VITALS: BP 128/66
--- NOTE | 2017-08-28 14:48 | General Progress Note ---
Assessment/Plan Problem List: (1) Hypernatremia ICD Codes: E87.0 - Hyperosmolality and hypernatremia SNOMED: 41221654 (2) Cachexia ICD Codes: R64 - Cachexia SNOMED: 936899084 (3) Dementia ICD Codes: F03.90 - Unspecified dementia without behavioral disturbance SNOMED: 88235292 (4) Seizure ICD Codes: R56.9 - Unspecified convulsions SNOMED: 85820019 (5) Prostate cancer ICD Codes: C61 - Malignant neoplasm of prostate SNOMED: 167529846 (6) Suprapubic catheter ICD Codes: Z93.59 - Other cystostomy status SNOMED: 600154927, 436144636 (7) Catheter-associated urinary tract infection ICD Codes: T83.511A - Infection and inflammatory reaction due to indwelling urethral catheter, initial encounter; N39.0 - Urinary tract infection, site not specified SNOMED: 026469484 (8) Diabetes mellitus ICD Codes: E11.9 - Type 2 diabetes mellitus without complications SNOMED: 55549440 (9) G tube feedings ICD Codes: Z93.1 - Gastrostomy status SNOMED: 625909331, 563382637 (10) Electrolyte abnormality ICD Codes: E87.8 - Other disorders of electrolyte and fluid balance, not elsewhere classified SNOMED: 303539922 (11) Dehydration ICD Codes: E86.0 - Dehydration SNOMED: 52313509 (12) UTI (urinary tract infection) ICD Codes: N39.0 - Urinary tract infection, site not specified SNOMED: 38086527 Qualifiers: Qualified Codes: T83.510A - Infection and inflammatory reaction due to cystostomy catheter, initial encounter; N39.0 - Urinary tract infection, site not specified (13) Suprapubic catheter dysfunction ICD Codes: T83.010A - Breakdown (mechanical) of cystostomy catheter, initial encounter SNOMED: 252184623 Qualifiers: Qualified Codes: T83.010A - Breakdown (mechanical) of cystostomy catheter, initial encounter (14) Sepsis ICD Codes: A41.9 - Sepsis, unspecified organism SNOMED: 11991373 Qualifiers: Qualified Codes: A41.9 - Sepsis, unspecified organism Status: progressing Assessment/Plan s/p suprapubic cath change uti sepsis abx per id clinically improving afebrile no change Subjective ROS Limited/Unobtainable: Yes Allergies: Coded Allergies: No Known Allergies (Verified , 09/26/12) Objective Last 24 Hour Vital Signs Date Time Temp Pulse Resp B/P (MAP) Pulse Ox O2 Delivery O2 Flow Rate FiO2 08/28/17 12:02 98.2 95 18 128/66 96 08/28/17 08:38 97.8 92 18 122/67 96 08/28/17 03:33 97.5 88 18 142/95 96 Room Air 08/27/17 23:31 97.5 89 20 124/97 91 Room Air 08/27/17 19:30 97.7 68 20 90/50 99 Room Air 08/27/17 19:10 96 Nasal Cannula 2.0 28 08/27/17 19:10 Nasal Cannula 2.0 28 08/27/17 19:05 81 20 Nasal Cannula 2.0 28 08/27/17 16:44 Nasal Cannula 2.0 08/27/17 16:23 98.4 93 20 109/61 97 08/27/17 16:06 Nasal Cannula 2.0 Intake and Output 08/27/17 08/28/17 19:00 07:00 Intake Total 490.00 ml 765.000 ml Output Total 1000 ml Balance -510.00 ml 765.000 ml Free Water 90 ml 100 ml IV Total 250.00 ml 305.000 ml Tube Feeding 150 ml 360 ml Output Urine Total 1000 ml # Voids 1 # Bowel Movements 1 Laboratory Tests 08/28/17 03:10: Vancomycin Level Trough 18.7H Height (Feet): 6 Height (Inches): 0.00 Weight (Pounds): 140 Cardiovascular: normal rate Respiratory/Chest: lungs clear Abdomen: soft Sary Oakes MD Aug 28, 2017 14:48
[2017-08-28 15:26] VITALS: BP 136/68
[2017-08-28] MEDS ORDERED: Tubing IV Secondary IV ONE (16:42)
[2017-08-28] MEDS ORDERED: Sterile Water Irrig 1000ml IRRIG ONE (16:42)
[2017-08-28 19:29] VITALS: BP 119/73
[2017-08-28] MEDS: Albuterol ud Inhalation HHN PRN (21:34)
[2017-08-28 23:25] VITALS: BP 129/66
[2017-08-29] MEDS: Albuterol ud Inhalation HHN PRN (02:25)
[2017-08-29 04:27] VITALS: BP 122/62
[2017-08-29] MEDS: NovoLOG Insulin Flexpen SUBQ SCH ×4 (06:09→20:40)
[2017-08-29] MEDS: Heparin 5000 units/ml inj SUBQ SCH ×3 (06:09→21:51)
[2017-08-29] MEDS: Ascorbic Acid 500mg tab ORAL SCH (07:57)
[2017-08-29] MEDS: Midodrine 10mg tab ORAL SCH ×3 (07:57→17:13)
[2017-08-29] MEDS: Multivitamins W/Minerals 15 ML UDC GT SCH (07:57)
[2017-08-29] MEDS: Cefepime HCl 1 GM in NS 55 ML IVPB SCH ×2 (07:59→20:40)
[2017-08-29 08:00] VITALS: BP 123/71
--- NOTE | 2017-08-29 10:53 | Infectious Diseases Prog Note ---
Assessment/Plan Assessment/Plan A; Sepsis Bacteremia with CoANS likely contamination Complicated UTI s/p suprapubic catheter Dementia MRSA & VRE colonization P: Continue Cefepime repeat CXR Subjective ROS Limited/Unobtainable: Yes Respiratory: Reports: dry cough Allergies: Coded Allergies: No Known Allergies (Verified , 09/26/12) Objective Vital Signs Last 24 Hour Vital Signs Date Time Temp Pulse Resp B/P (MAP) Pulse Ox O2 Delivery O2 Flow Rate FiO2 08/29/17 08:05 Room Air 08/29/17 08:05 97 20 Room Air 08/29/17 08:00 98.8 97 20 123/71 94 Room Air 08/29/17 07:05 97 Room Air 21 08/29/17 04:56 97.7 08/29/17 04:52 Room Air 08/29/17 04:27 100.0 105 20 122/62 94 Room Air 08/29/17 02:35 95 20 97 Room Air 21 08/29/17 02:26 21 08/29/17 02:26 89 20 97 Room Air 21 08/29/17 00:05 Room Air 08/28/17 23:25 97.7 104 20 129/66 92 Room Air 08/28/17 21:33 91 20 95 Room Air 21 08/28/17 21:33 21 08/28/17 20:42 95 Room Air 08/28/17 20:42 Room Air 08/28/17 20:41 91 20 Room Air 08/28/17 20:13 Room Air 08/28/17 19:29 97.7 91 20 119/73 95 Room Air 08/28/17 15:26 98.4 99 18 136/68 95 08/28/17 12:02 98.2 95 18 128/66 96 Height (Feet): 6 Height (Inches): 0.00 Weight (Pounds): 140 General Appearance: no acute distress HEENT: mucous membranes moist Respiratory/Chest: lungs clear Cardiovascular: normal rate Abdomen: soft, non tender, other - Gt feeding Genitourinary: other - suprapubic catheter Extremities: no edema Neurologic/Psychiatric: disoriented, aphasia Current Medications Medications (Trade) Dose Ordered Sig/Matt Route PRN Reason Start Time Stop Time Status Last Admin Dose Admin Acetaminophen (Tylenol) 650 mg Q4H PRN ORAL Mild Pain/Temp > 100.5 08/27/17 15:30 09/24/17 23:29 Albuterol Sulfate (Proventil) 2.5 mg Q4H PRN HHN congestion 08/27/17 16:30 08/31/17 00:29 08/29/17 02:25 Ascorbic Acid (Vitamin C) 500 mg DAILY ORAL 08/28/17 09:00 09/25/17 08:59 08/29/17 07:57 Cefepime HCl 1 gm/ Sodium Chloride 55 ml @ 110 mls/hr EVERY 12 HOURS IVPB 08/27/17 21:00 09/02/17 12:59 08/29/17 07:59 Clotrimazole (Lotrimin) 1 applic EVERY 12 HOURS TOPIC 08/27/17 21:00 09/25/17 20:59 08/29/17 07:59 Dextrose (Dextrose 50%) STAT PRN IV Hypoglycemia 08/28/17 00:30 09/25/17 00:29 Heparin Sodium (Porcine) (Heparin 5000 units/ml) 5,000 units Q8HR SUBQ 08/27/17 22:00 09/25/17 05:59 08/29/17 06:09 Insulin Aspart (NovoLOG) BEFORE MEALS AND HS SUBQ 08/27/17 16:30 09/25/17 11:29 08/29/17 06:09 Lansoprazole (Prevacid) 30 mg DAILY GT 08/28/17 09:00 09/25/17 08:59 08/29/17 07:57 Midodrine (Pro-Amatine) 10 mg THREE TIMES A DAY ORAL 08/27/17 18:00 09/25/17 08:59 08/29/17 07:57 Multivitamins (Multivitamins W/ Minerals 15ml Liquid) 15 ml DAILY GT 08/28/17 09:00 09/25/17 08:59 08/29/17 07:57 Ondansetron HCl (Zofran) 4 mg Q6H PRN IVP Nausea & Vomiting 08/27/17 18:30 09/25/17 00:29 Polyethylene Glycol (Miralax) 17 gm DAILY PRN ORAL Constipation 08/28/17 09:00 09/25/17 00:29 BREANNE CERVANTES Aug 29, 2017 10:53
[2017-08-29 12:00] VITALS: BP 139/70
--- NOTE | 2017-08-29 14:18 | General Progress Note ---
Assessment/Plan Problem List: (1) Hypernatremia ICD Codes: E87.0 - Hyperosmolality and hypernatremia SNOMED: 68096559 (2) Cachexia ICD Codes: R64 - Cachexia SNOMED: 284709944 (3) Dementia ICD Codes: F03.90 - Unspecified dementia without behavioral disturbance SNOMED: 93155279 (4) Seizure ICD Codes: R56.9 - Unspecified convulsions SNOMED: 75209917 (5) Prostate cancer ICD Codes: C61 - Malignant neoplasm of prostate SNOMED: 729158192 (6) Suprapubic catheter ICD Codes: Z93.59 - Other cystostomy status SNOMED: 735873393, 911596936 (7) Catheter-associated urinary tract infection ICD Codes: T83.511A - Infection and inflammatory reaction due to indwelling urethral catheter, initial encounter; N39.0 - Urinary tract infection, site not specified SNOMED: 099400942 (8) Diabetes mellitus ICD Codes: E11.9 - Type 2 diabetes mellitus without complications SNOMED: 01776172 (9) G tube feedings ICD Codes: Z93.1 - Gastrostomy status SNOMED: 792657832, 901636076 (10) Electrolyte abnormality ICD Codes: E87.8 - Other disorders of electrolyte and fluid balance, not elsewhere classified SNOMED: 580514035 (11) Dehydration ICD Codes: E86.0 - Dehydration SNOMED: 36231754 (12) UTI (urinary tract infection) ICD Codes: N39.0 - Urinary tract infection, site not specified SNOMED: 85102214 Qualifiers: Qualified Codes: T83.510A - Infection and inflammatory reaction due to cystostomy catheter, initial encounter; N39.0 - Urinary tract infection, site not specified (13) Suprapubic catheter dysfunction ICD Codes: T83.010A - Breakdown (mechanical) of cystostomy catheter, initial encounter SNOMED: 150529606 Qualifiers: Qualified Codes: T83.010A - Breakdown (mechanical) of cystostomy catheter, initial encounter (14) Sepsis ICD Codes: A41.9 - Sepsis, unspecified organism SNOMED: 60251132 Qualifiers: Qualified Codes: A41.9 - Sepsis, unspecified organism Status: stable Assessment/Plan s/p suprapubic cath change uti reviewed chart and labs and meds peg lyte improving afebrile Subjective ROS Limited/Unobtainable: Yes Allergies: Coded Allergies: No Known Allergies (Verified , 09/26/12) Objective Last 24 Hour Vital Signs Date Time Temp Pulse Resp B/P (MAP) Pulse Ox O2 Delivery O2 Flow Rate FiO2 08/29/17 12:00 98.1 95 19 139/70 97 08/29/17 08:05 Room Air 08/29/17 08:05 97 20 Room Air 08/29/17 08:00 98.8 97 20 123/71 94 Room Air 08/29/17 07:05 97 Room Air 21 08/29/17 04:56 97.7 08/29/17 04:52 Room Air 08/29/17 04:27 100.0 105 20 122/62 94 Room Air 08/29/17 02:35 95 20 97 Room Air 21 08/29/17 02:26 21 08/29/17 02:26 89 20 97 Room Air 08/29/17 00:05 Room Air 08/28/17 23:25 97.7 104 20 129/66 92 Room Air 08/28/17 21:33 91 20 95 Room Air 21 08/28/17 21:33 21 08/28/17 20:42 95 Room Air 08/28/17 20:42 Room Air 08/28/17 20:41 91 20 Room Air 08/28/17 20:13 Room Air 08/28/17 19:29 97.7 91 20 119/73 95 Room Air 08/28/17 15:26 98.4 99 18 136/68 95 Intake and Output 08/28/17 08/29/17 19:00 07:00 Intake Total 460 ml 565 ml Output Total 650 ml 660 ml Balance -190 ml -95 ml Free Water 100 ml IV Total 55 ml Tube Feeding 360 ml 360 ml Blood Product 150 ml Output Urine Total 650 ml 660 ml # Bowel Movements 2 1 Height (Feet): 6 Height (Inches): 0.00 Weight (Pounds): 140 Cardiovascular: normal rate Respiratory/Chest: lungs clear Abdomen: soft Sary Oakes MD Aug 29, 2017 14:18
[2017-08-29 16:00] VITALS: BP 116/63
--- NOTE | 2017-08-29 17:01 | Cardiology Report ---
APPROVED REPORT EKG Measurement Heart [id number] Sinus tachycardia Otherwise normal ECG
[2017-08-29 20:00] VITALS: BP 136/85
--- NOTE | 2017-08-29 23:06 | Consultation ---
DATE OF CONSULTATION: 08/28/2017 HEMATOLOGY/ONCOLOGY CONSULTATION CONSULTING PHYSICIAN: Jose Luis Rendon M.D. REQUESTING PHYSICIAN: Sary Oakes M.D. REASON FOR CONSULTATION: Evaluation of prostate cancer as well as anemia, cachexia, and failure to thrive concern. IDENTIFICATION DATA: Dear Dr. Oakes, The patient is a pleasant 76-year-old male, who I have seen before in the past approximately one to two months ago. He has multiple medical issues significant for anemia, dementia, prostate cancer, status post suprapubic catheterization, status post G-tube, diabetes mellitus, CVA, glaucoma and osteoporosis, at this time presents with complicated urinary tract infection and the patient has been seen by Infectious Diseases team. Currently, he is on antibiotics, has been noted to have a fever. The catheter has been changed. Hematology Service was consulted for further evaluation and treatment. PAST MEDICAL HISTORY: As noted above. MEDICATIONS: Insulin, vitamin C, midodrine, multivitamin, heparin, Proventil, and Prilosec. ALLERGIES: No known drug allergies. SOCIAL HISTORY: shelter resident. Single. No alcohol, tobacco, or illicit drug use. PHYSICAL EXAMINATION: GENERAL: No distress. VITAL SIGNS: Reviewed. PULMONARY: Decreased breath sounds. CARDIOVASCULAR: Regular rate. No S3 or S4. ABDOMEN: Status post suprapubic catheter and G-tube in place. EXTREMITIES: No cyanosis, swelling, or edema. LABORATORY DATA: BUN of 4 and creatinine 0.7. WBC 11.2, hemoglobin 11.5, hematocrit 37, and platelet count 300,000. Urinalysis, RBCs 10, leukocyte esterase 2+, and protein 2+. ASSESSMENT AND RECOMMENDATIONS: 1. Failure to thrive, likely related to history of multiple chronic diseases. No evidence of malignancy at this time . In the past, I have reviewed tumor markers. Currently negative. 2. Slightly elevated CEA. 3. Anemia due to underlying chronic disease. Continue to closely monitor. 4. Leukocytosis due to sepsis, fever, and urinary tract infection. 5. Complicated urinary tract infection, tachycardia and tachypnea, on antibiotic cefepime. 6. Status post gastrostomy tube. 7. Urostomy with catheter. I appreciate the consultation. Jose Luis Rendon M.D. DR: SAE JOB#: [id number] CC:
--- NOTE | 2017-08-29 23:56 | General Progress Note ---
Assessment/Plan Assessment/Plan #. Anemia due to underlying chronic disease. --> Continue to closely monitor. --> Blood transfusion not required unless symptomatic or hgb <7 #. Leukocytosis due to sepsis, fever, and urinary tract infection. --> On antibiotics. --> Monitor closely. #. Failure to thrive, likely related to history of multiple chronic diseases. --> No evidence of malignancy at this time . --> In the past, I have reviewed tumor markers. Currently negative. #. Slightly elevated CEA. #. Complicated urinary tract infection, tachycardia and tachypnea, on antibiotic cefepime. #. Status post gastrostomy tube. #. Urostomy with catheter. Subjective Date patient seen: Aug 29, 2017 Constitutional: Denies: no symptoms, chills, diaphoresis, fever, malaise, weakness, other HEENT: Denies: no symptoms, eye pain, blurred vision, tearing, double vision, ear pain, ear discharge, nose pain, nose congestion, throat pain, throat swelling, mouth pain, mouth swelling, other Cardiovascular: Denies: no symptoms, chest pain, edema, irregular heart rate, lightheadedness, palpitations, syncope, other Respiratory: Denies: no symptoms, cough, orthopnea, shortness of breath, SOB with excertion, SOB at rest, sputum, stridor, wheezing, other Gastrointestinal/Abdominal: Denies: no symptoms, abdomen distended, abdominal pain, black stools, tarry stools, blood in stool, constipated, diarrhea, difficulty swallowing, nausea, poor appetite, poor fluid intake, rectal bleeding , vomiting, other Genitourinary: Denies: no symptoms, burning, discharge, frequency, flank pain, hematuria, incontinence, pain, urgency, other Hematologic/Lymphatic: Reports: anemia Allergies: Coded Allergies: No Known Allergies (Verified , 09/26/12) Subjective NAD. No fever or chills. H/H stable. Objective Last 24 Hour Vital Signs Date Time Temp Pulse Resp B/P (MAP) Pulse Ox O2 Delivery O2 Flow Rate FiO2 08/29/17 22:11 85 08/29/17 20:00 99.5 112 20 136/85 96 08/29/17 20:00 Room Air 08/29/17 19:52 Room Air 21 08/29/17 19:52 96 Room Air 21 08/29/17 19:51 90 20 Room Air 08/29/17 16:00 98.2 81 19 116/63 96 08/29/17 12:00 98.1 95 19 139/70 97 08/29/17 08:05 Room Air 08/29/17 08:05 97 20 Room Air 08/29/17 08:00 98.8 97 20 123/71 94 Room Air 08/29/17 07:05 97 Room Air 08/29/17 04:56 97.7 08/29/17 04:52 Room Air 08/29/17 04:27 100.0 105 20 122/62 94 Room Air 08/29/17 02:35 95 20 97 Room Air 21 08/29/17 02:26 21 08/29/17 02:26 89 20 97 Room Air 08/29/17 00:05 Room Air Intake and Output 08/28/17 08/29/17 18:59 06:59 Intake Total 460 ml 565 ml Output Total 650 ml 660 ml Balance -190 ml -95 ml Free Water 100 ml IV Total 55 ml Tube Feeding 360 ml 360 ml Blood Product 150 ml Output Urine Total 650 ml 660 ml # Bowel Movements 2 1 Height (Feet): 6 Height (Inches): 0.00 Weight (Pounds): 140 General Appearance: no apparent distress Cardiovascular: normal rate Respiratory/Chest: decreased breath sounds Abdomen: non tender Jose Luis Rendon Aug 29, 2017 23:56
[2017-08-30] VITALS: BP 121/79
[2017-08-30] MEDS: Albuterol ud Inhalation HHN PRN (01:34)
[2017-08-30 04:00] VITALS: BP 115/59
[2017-08-30] MEDS: NovoLOG Insulin Flexpen SUBQ SCH ×2 (06:01→11:48)
[2017-08-30] MEDS: Heparin 5000 units/ml inj SUBQ SCH (06:01)
[2017-08-30 07:59] VITALS: BP 122/77
[2017-08-30] MEDS: Midodrine 10mg tab ORAL SCH ×2 (08:29→13:00)
[2017-08-30] MEDS: Ascorbic Acid 500mg tab ORAL SCH (08:30)
[2017-08-30] MEDS: Cefepime HCl 1 GM in NS 55 ML IVPB SCH (08:30)
[2017-08-30] MEDS: Multivitamins W/Minerals 15 ML UDC GT SCH (09:28)
[2017-08-30 11:45] VITALS: BP 131/72
--- NOTE | 2017-08-30 11:53 | Infectious Diseases Prog Note ---
Assessment/Plan Assessment/Plan A; Sepsis Bacteremia with CoANS likely contamination Complicated UTI s/p suprapubic catheter Dementia MRSA & VRE colonization P: Change Cefepime to Keflex Continue antibiotic X 2 days Agree with discharge Case was D/W RN Subjective ROS Limited/Unobtainable: Yes Allergies: Coded Allergies: No Known Allergies (Verified , 09/26/12) Objective Vital Signs Last 24 Hour Vital Signs Date Time Temp Pulse Resp B/P (MAP) Pulse Ox O2 Delivery O2 Flow Rate FiO2 08/30/17 11:45 97.5 91 20 131/72 95 08/30/17 07:59 98.2 90 20 122/77 94 08/30/17 07:56 77 20 Room Air 08/30/17 07:55 97 Room Air 21 08/30/17 07:55 Room Air 08/30/17 04:58 Room Air 08/30/17 04:00 99.1 91 20 115/59 92 08/30/17 01:44 93 20 98 Room Air 21 08/30/17 01:36 92 20 95 Room Air 21 08/30/17 01:36 21 08/30/17 00:00 Room Air 08/30/17 00:00 98.6 98 18 121/79 99 08/29/17 22:11 85 08/29/17 20:00 99.5 112 20 136/85 96 08/29/17 20:00 Room Air 08/29/17 19:52 Room Air 21 08/29/17 19:52 96 Room Air 21 08/29/17 19:51 90 20 Room Air 08/29/17 16:00 98.2 81 19 116/63 96 08/29/17 12:00 98.1 95 19 139/70 97 Height (Feet): 6 Height (Inches): 0.00 Weight (Pounds): 140 General Appearance: no acute distress Respiratory/Chest: lungs clear Cardiovascular: normal rate Abdomen: soft, non tender, other - GT feeding Genitourinary: other - suprapubic catheter Extremities: no edema Neurologic/Psychiatric: aphasia Current Medications Medications (Trade) Dose Ordered Sig/Matt Route PRN Reason Start Time Stop Time Status Last Admin Dose Admin Acetaminophen (Tylenol) 650 mg Q4H PRN ORAL Mild Pain/Temp > 100.5 08/27/17 15:30 09/24/17 23:29 Albuterol Sulfate (Proventil) 2.5 mg Q4H PRN HHN congestion 08/27/17 16:30 08/31/17 00:29 08/30/17 01:34 Ascorbic Acid (Vitamin C) 500 mg DAILY ORAL 08/28/17 09:00 09/25/17 08:59 08/30/17 08:30 Cefepime HCl 1 gm/ Sodium Chloride 55 ml @ 110 mls/hr EVERY 12 HOURS IVPB 08/27/17 21:00 09/02/17 12:59 08/30/17 08:30 Clotrimazole (Lotrimin) 1 applic EVERY 12 HOURS TOPIC 08/27/17 21:00 09/25/17 20:59 08/30/17 09:28 Dextrose (Dextrose 50%) STAT PRN IV Hypoglycemia 08/28/17 00:30 09/25/17 00:29 Heparin Sodium (Porcine) (Heparin 5000 units/ml) 5,000 units Q8HR SUBQ 08/27/17 22:00 09/25/17 05:59 08/30/17 06:01 Insulin Aspart (NovoLOG) BEFORE MEALS AND HS SUBQ 08/27/17 16:30 09/25/17 11:29 08/30/17 11:48 Lansoprazole (Prevacid) 30 mg DAILY GT 08/28/17 09:00 09/25/17 08:59 08/30/17 08:30 Midodrine (Pro-Amatine) 10 mg THREE TIMES A DAY ORAL 08/27/17 18:00 09/25/17 08:59 08/30/17 08:29 Multivitamins (Multivitamins W/ Minerals 15ml Liquid) 15 ml DAILY GT 08/28/17 09:00 09/25/17 08:59 08/30/17 09:28 Ondansetron HCl (Zofran) 4 mg Q6H PRN IVP Nausea & Vomiting 08/27/17 18:30 09/25/17 00:29 Polyethylene Glycol (Miralax) 17 gm DAILY PRN ORAL Constipation 08/28/17 09:00 09/25/17 00:29 BREANNE CERVANTES Aug 30, 2017 11:53
[2017-08-30] MEDS ORDERED: Tubing IV Secondary IV ONE (12:39)
[2017-08-30] MEDS ORDERED: Cephalexin 500mg cap GT SCH (14:00)
--- NOTE | 2017-08-30 15:07 | Diagnostic Imaging Report ---
Indication: Cough Technique: One view of the chest Comparison: 08/25/2017 Findings: Large left pleural effusion is again demonstrated. Some right perihilar atelectasis is unchanged. The heart border is largely obscured. Findings are similar to the previous exam Impression: Large left pleural effusion, similar to prior study 08/25/2017 Stable right perihilar atelectasis
--- NOTE | 2017-08-30 23:05 | General Progress Note ---
Assessment/Plan Status: stable Assessment/Plan #. Anemia due to underlying chronic disease. --> Continue to closely monitor. --> Blood transfusion not required unless symptomatic or hgb <7 --> Has been above goal. #. Leukocytosis due to sepsis, fever, and urinary tract infection. --> On antibiotics. --> Monitor closely. Improved #. Failure to thrive, likely related to history of multiple chronic diseases. --> No evidence of malignancy at this time . --> In the past, I have reviewed tumor markers. Currently negative. #. Slightly elevated CEA. #. Complicated urinary tract infection, tachycardia and tachypnea, on antibiotic cefepime. #. Status post gastrostomy tube. #. Urostomy with catheter. Subjective Date patient seen: Aug 30, 2017 Constitutional: Denies: no symptoms, chills, diaphoresis, fever, malaise, weakness, other HEENT: Denies: no symptoms, eye pain, blurred vision, tearing, double vision, ear pain, ear discharge, nose pain, nose congestion, throat pain, throat swelling, mouth pain, mouth swelling, other Cardiovascular: Denies: no symptoms, chest pain, edema, irregular heart rate, lightheadedness, palpitations, syncope, other Respiratory: Denies: no symptoms, cough, orthopnea, shortness of breath, SOB with excertion, SOB at rest, sputum, stridor, wheezing, other Gastrointestinal/Abdominal: Denies: no symptoms, abdomen distended, abdominal pain, black stools, tarry stools, blood in stool, constipated, diarrhea, difficulty swallowing, nausea, poor appetite, poor fluid intake, rectal bleeding , vomiting, other Genitourinary: Denies: no symptoms, burning, discharge, frequency, flank pain, hematuria, incontinence, pain, urgency, other Allergies: Coded Allergies: No Known Allergies (Verified , 09/26/12) Subjective No complaints of pain. H/H stable. No fever. Objective Last 24 Hour Vital Signs Date Time Temp Pulse Resp B/P (MAP) Pulse Ox O2 Delivery O2 Flow Rate FiO2 08/30/17 11:45 97.5 91 20 131/72 95 08/30/17 07:59 98.2 90 20 122/77 94 08/30/17 07:56 77 20 Room Air 08/30/17 07:55 97 Room Air 21 08/30/17 07:55 Room Air 08/30/17 04:58 Room Air 08/30/17 04:00 99.1 91 20 115/59 92 08/30/17 01:44 93 20 98 Room Air 21 08/30/17 01:36 92 20 95 Room Air 21 08/30/17 01:36 21 08/30/17 00:00 Room Air 08/30/17 00:00 98.6 98 18 121/79 99 Intake and Output 08/29/17 08/30/17 19:00 07:00 Intake Total 540 ml 535 ml Output Total 550 ml 400 ml Balance -10 ml 135 ml Free Water 150 ml 150 ml IV Total 55 ml Tube Feeding 390 ml 330 ml Output Urine Total 550 ml 400 ml # Bowel Movements 2 1 Height (Feet): 6 Height (Inches): 0.00 Weight (Pounds): 140 General Appearance: no apparent distress Neck: supple Cardiovascular: normal rate, regular rhythm Respiratory/Chest: lungs clear Abdomen: soft Skin: normal pigmentation, warm/dry Jose Luis Rendon Aug 30, 2017 23:05
--- NOTE | 2017-08-31 11:39 | Diagnostic Imaging Report ---
APPROVED REPORT CPT Code: 65595 Present Symptoms Shortness of breath BILATERAL: Imaging reveals a patent deep venous system bilaterally. There is no evidence of thrombus within the femoral, popliteal or tibial segments. The greater saphenous veins are also within normal limits. Doppler indicates normal spontaneous flow within these segments.
--- NOTE | 2017-09-02 09:49 | Discharge Summary ---
Discharge Summary Hospital Course Date of Admission Aug 25, 2017 at 15:53 Date of Discharge Aug 30, 2017 at 12:40 Admitting Diagnosis Sepsis HPI Elias Botello is a 76 year old male who was admitted on Aug 25, 2017 at 15:53 for Sepsis Procedures dc summary #[id number] Discharge Medications Continued Medications: Acetaminophen (Acetaminophen) 650 Mg/20.3 Ml Solution 650 MG GT Q4HR PRN for For Pain MDD 3GM, ML 0 Refills Albuterol Sulfate* (Albuterol Sulfate Hhn*) 2.5 Mg/3 Ml Vial.neb 0.63 MG INH Q4H PRN for Shortness of Breath, EA Ascorbic Acid* (Vitamin C*) 500 Mg Tablet 500 MG ORAL DAILY, TAB 0 Refills Cranberry Extract (Cranberry) Unknown Strength Tablet Unknown Dose GT BID, TAB Heparin Sod (Porcine) (Heparin Sodium*) 5 000/1 Ml Vial 5000 UNITS SUBQ EVERY 8 HOURS, VIAL Insulin Lispro (Humalog) 100 Unit/1 Ml Cartridge 0 SUBQ, #1 UNITS 0 Refills Midodrine* (Proamatine*) 10 Mg Tablet 10 MG GT THREE TIMES A DAY, TAB Per med list from [facility], hold if SBP > 140 Multivits W-Min/Ferrous Gluc (Multivitamin-Mineral Liquid) 9 Mg/15 Ml Liquid 15 ML GT DAILY, ML Omeprazole (Omeprazole) 20 Mg Capsule.dr 20 MG GT DAILY, CAP Ondansetron* (Zofran*) 4 Mg Tablet 4 MG GT Q6H PRN for Nausea & Vomiting, TAB Polyethylene Glycol 3350* (Miralax*) 17 Gm Powd.pack 17 GM GT DAILY PRN for Constipation, PACKET Discharge Condition Upon Discharge: stable Discharge Disposition Patient was discharged to SNF/Subacute Facility(03) Discharge Diagnoses: Mani (Duarte)Jess NP Sep 02, 2017 09:49
--- NOTE | 2017-09-03 02:30 | Discharge Summary 2 SIG ---
DATE OF ADMISSION: 08/25/2017 DATE OF DISCHARGE: 08/30/2017 REASON FOR ADMISSION: 76-year-old male, resident [facility] with history of prostate CA, diabetes, dysphagia, G-tube, recent acute respiratory failure requiring intubation, sepsis with septic shock and pneumonia, was sent from the [facility] for evaluation. Upon evaluation, the patient was found to be febrile, tachycardic, tachypneic, and had evidence of blocked suprapubic catheter. In the emergency department, the patient was pancultured. Suprapubic catheter changed. The patient was admitted with sepsis, urinary tract infection, and suprapubic catheter malfunction. HOSPITAL COURSE: The patient was admitted. The patient was started on empiric antibiotic. Infectious Disease specialist consulted. Blood culture showed Staph hominis, likely contamination as per ID conclusion. Urine culture revealed Proteus. The patient was on antibiotic as directed by Infectious Disease specialist and was discharged to [facility] on antibiotics to complete the course. Urologist seen and evaluated the patient. Suprapubic catheter was functioning properly. He recommended to continue treatment for UTI and change suprapubic catheter every 4 to 6 weeks. The patient was on the IV hydration. Renal parameters and electrolytes were closely monitored. Electrolytes were stable. BUN from 41 down to 22 with IV hydration. Blood sugar was managed with sliding scale of insulin and remained stable. Strict aspiration and reflux precautions were maintained. The patient was on G-tube feeding. Nutritional recommendations were implemented. The patient was able to tolerate tube feeding. Initial dehydration resolved. Solid Waste Manager followed for anemia of chronic disease. Initial leukocytosis resolved, likely due to the infectious process. Counts were closely monitored, no need for blood transfusion, unless the patient became symptomatic or hemoglobin below 7. Goal was to keep hemoglobin above 7. The patient was stable for discharge. FINAL DIAGNOSES: 1. Sepsis 2. Complicated urinary tract infection with Proteus. 3. Suprapubic catheter malfunction. 4. Anemia of chronic disease. 5. Diabetes mellitus. 6. Dehydration. 7 Gastrostomy tube feeding. 8. Cachexia. 9. Sacrococcygeal scattered un-stageable pressure ulcer, poa 10. Right malleolus DTI pressure ulcer, POA 11. Left heel un-stageable pressure ulcer,poa DISCHARGE INSTRUCTIONS: The [facility]. Follow up with medical doctor at the facility. DISCHARGE MEDICATIONS: See medication reconciliation list. Sary Oakes M.D. I have been assigned to dictate discharge summary on this account and I was not involved in the patient's management. Jess InmanNancy lowery DR: Rohith JOB#: [id number] CC: SANTOSH
--- NOTE | 2017-09-07 08:15 | History and Physical Report ---
HISTORY OF PRESENT ILLNESS: The patient came in with a blocked suprapubic catheter. The patient is a very poor historian, could not give any history. The patient is admitted for sepsis, respiratory failure as well as urinary tract infection. The patient has a history of diabetes and dehydration. The patient was being admitted for UTI, respiratory insufficiency, and clogged suprapubic catheter. Cannot obtain history from the patient. Poor historian. PAST MEDICAL HISTORY: History of prostate cancer, history of anemia, history of dysphagia, Alzheimer, malnutrition, history of [place], CAD, dehydration, history of dysphagia, history of electrolyte imbalance, history of decubitus, and history of NIDDM. PAST SURGICAL HISTORY: PEG and suprapubic catheter. ALLERGIES: None known. SOCIAL HISTORY: Unable to obtain. REVIEW OF SYSTEMS: Unable to obtain. PHYSICAL EXAMINATION: VITAL SIGNS: Temperature is 99.5 degrees, pulse is 91, and blood pressure . HEENT: PERRLA. NECK: Supple. No lymphadenopathy. CHEST: Clear to auscultation. GASTROINTESTINAL: Soft, nontender, and nondistended. No organomegaly. EXTREMITIES: No edema. Moves all four extremities. suprapubic catheter. NEUROLOGIC: Oriented x1. LABORATORY DATA: WBC 11.1, hemoglobin 11.5, and platelets 438. Sodium 138, potassium 4.4, BUN of 41, creatinine of 0.7, and glucose of 107. ASSESSMENT AND PLAN: 1. Cachexia. 2. Hypernatremia. 3. Dementia. 4. Dysphagia. 5. Dds-vzlqkmx-tvrfdtdjv diabetes mellitus. 6. Clogged suprapubic catheter. The patient came in with suprapubic catheter and admitted for urinary tract infection and sepsis. The patient has a history of diabetes mellitus, prostate cancer, dementia of Alzheimer's type, anemia, coronary artery disease, hypertension, and percutaneous endoscopic gastrostomy. I have consulted ID Dr. Rosales Miramontes, Dr. Herring and Dr. Rendon were consulted for those reasons for the treatment and management of the diagnoses as mentioned. Sary Oakes M.D. DR: Carolee JOB#: [id number] CC:
== END 2017-08-30 12:40 | DRG 872 ==
LOC: EDBD 15:00 → EMR 15:40 → 2E 15:53 → EDBEDREQ 17:18 → 4W 08-27 14:57
PROC: 0T2BX0Z Change Drainage Device in Bladder, External Approach (ICD-10-PCS; principal; 2017-08-25)
DX: A41.9 Sepsis, unspecified organism (principal); L89.150 Pressure ulcer of sacral region, unstageable; E87.0 Hyperosmolality and hypernatremia; R64 Cachexia; R56.9 Unspecified convulsions; N39.0 Urinary tract infection, site not specified; G30.9 Alzheimer's disease, unspecified; L89.510 Pressure ulcer of right ankle, unstageable; F02.80 Dementia in other diseases classified elsewhere, unspecified severity, without behavioral disturbance, psychotic disturbance, mood disturbance, and anxiety; D63.8 Anemia in other chronic diseases classified elsewhere; E11.9 Type 2 diabetes mellitus without complications; T83.010A Breakdown (mechanical) of cystostomy catheter, initial encounter; Z43.1 Encounter for attention to gastrostomy; L89.620 Pressure ulcer of left heel, unstageable; E86.0 Dehydration; Z86.73 Personal history of transient ischemic attack (TIA), and cerebral infarction without residual deficits; H40.9 Unspecified glaucoma; R62.7 Adult failure to thrive; Z79.4 Long term (current) use of insulin; Z85.46 Personal history of malignant neoplasm of prostate
CPT/HCPCS: 36415; 51702; 71045; 80053; 80202; 81003; 82550; 82553; 82962; 83605; 83690; 83735; 83880; 84100; 84484; 85025; 85610; 85730; 87040; 87081; 87086; 87181; 93005; 93970; 94640; 94664; 94760; 99285; J1815